=== PATIENT | female | born 1985 | race Caucasian/White ===

== ENCOUNTER 2018-09-16 12:46 | Outpatient (CLI) | payer BC, SELFPAY ==
[2018-09-16 13:57] LABS: PTT Activated 23.6 sec (21.0-31.4)
[2018-09-16 22:11] LABS: Fibrinogen 265 mg/dl (171-384)
[2018-09-17 09:37] LABS: DHEA Sulfate 343 ug/dl (96-512)
[2018-09-20 16:22] LABS: Testosterone, Free 0.22 ng/dL (0.06-1.03); Testosterone, Total 13 ng/dL (8-60)
== END 2018-09-16 13:06 ==
PROVIDERS: PCP Family Medicine; Visit Provider Obstetrics & Gynecology Reproductive Endocrinology
DX: Z31.9 Encounter for procreative management, unspecified (principal); Z82.49 Family history of ischemic heart disease and other diseases of the circulatory system
CPT/HCPCS: 82627; 84402; 84403; 85384; 85610; 85730

== ENCOUNTER 2019-01-03 11:33 | Outpatient (REF) | payer BC, SELFPAY ==
[2019-01-03 13:25] LABS: HCG Quant, Pregnancy 62 mIU/mL (1-3)
== END 2019-01-03 11:53 ==
LOC: LBN 11:33
PROVIDERS: PCP Family Medicine; Visit Provider Obstetrics & Gynecology Reproductive Endocrinology
DX: O09.811 Supervision of pregnancy resulting from assisted reproductive technology, first trimester (principal)
CPT/HCPCS: 84702

== ENCOUNTER 2019-01-09 13:03 | Outpatient (CLI) | payer BC, SELFPAY ==
[2019-01-09 14:27] LABS: HCG Quant, Pregnancy 555 mIU/mL (1-3)
== END 2019-01-09 13:23 ==
PROVIDERS: PCP Family Medicine; Visit Provider Obstetrics & Gynecology Reproductive Endocrinology
DX: O09.811 Supervision of pregnancy resulting from assisted reproductive technology, first trimester (principal)
CPT/HCPCS: 36415; 84702

== ENCOUNTER 2019-04-26 11:02 | Outpatient (CLI) | payer BC, SELFPAY ==
[2019-04-26 17:02] LABS: Progesterone 22.3 ng/ml
== END 2019-04-26 11:22 ==
PROVIDERS: PCP Family Medicine; Visit Provider Obstetrics & Gynecology Reproductive Endocrinology
DX: Z31.83 Encounter for assisted reproductive fertility procedure cycle (principal)
CPT/HCPCS: 36415; 84144

== ENCOUNTER 2019-05-08 11:14 | Outpatient (CLI) | payer BC, SELFPAY ==
[2019-05-08 12:25] LABS: HCG Quant, Pregnancy 3 mIU/mL (1-3)
== END 2019-05-08 11:34 ==
PROVIDERS: PCP Family Medicine; Visit Provider Specialist
DX: Z32.00 Encounter for pregnancy test, result unknown (principal)
CPT/HCPCS: 36415; 84144; 84702

== ENCOUNTER 2019-05-11 09:52 | Outpatient (CLI) | payer BC, SELFPAY ==
[2019-05-11 12:57] LABS: HCG Quant, Pregnancy 1 mIU/mL (1-3)
== END 2019-05-11 10:12 ==
PROVIDERS: PCP Family Medicine; Visit Provider Student in an Organized Health Care Education/Training Program
DX: Z32.02 Encounter for pregnancy test, result negative (principal)
CPT/HCPCS: 36415; 84702

== ENCOUNTER 2020-06-27 02:34 | Outpatient (CLI) | payer BC, SELFPAY ==
[2020-06-27 18:01] LABS: TSH 0.98 uIU/mL (0.36-3.74)
[2020-06-27 18:14] LABS: Vitamin D 25 Total 47.6 ng/ml (30-100)
[2020-06-30 11:08] LABS: HIV-1/2 Ag & Ab Screen Negative (Negative)
[2020-07-13 12:45] LABS: Syphilis Total Ab w/Reflex Nonreactive (Nonreactive)
[2020-07-13 12:47] LABS: Antimullerian Hormone 4.8 ng/mL (0.58-8.1)
[2020-07-14 11:39] LABS: Hepatitis B Surface Ag Negative (Negative); Hepatitis C Ab w Rflx HCV PCR Negative (Negative)
[2020-07-14 11:40] LABS: Hep B Core Antibody Negative (Negative)
== END 2020-06-27 02:54 ==
PROVIDERS: PCP Family Medicine; Visit Provider Obstetrics & Gynecology Reproductive Endocrinology
DX: Z11.3 Encounter for screening for infections with a predominantly sexual mode of transmission (principal); Z31.83 Encounter for assisted reproductive fertility procedure cycle; Z11.4 Encounter for screening for human immunodeficiency virus [HIV]
CPT/HCPCS: 36415; 82306; 86704; 86803; 87340; 87389; 87491; 87591; 83520; 84443; 86592; 86780

== ENCOUNTER 2020-07-01 03:30 | Outpatient (CLI) | payer BC, SELFPAY ==
[2020-07-04 23:25] LABS: Patient Race White; SARS-CoV-2 RNA Undetected (Undetected); SARS-CoV-2 Specimen Source Nasal
== END 2020-07-01 03:50 ==
PROVIDERS: PCP Family Medicine; Visit Provider Family Medicine
DX: Z01.812 Encounter for preprocedural laboratory examination (principal)
CPT/HCPCS: U0003

== ENCOUNTER 2020-07-11 04:11 | Outpatient (CLI) | payer BC, SELFPAY ==
[2020-07-11 16:48] LABS: Estradiol 306 pg/mL (See Note)
== END 2020-07-11 04:31 ==
PROVIDERS: PCP Family Medicine; Visit Provider Obstetrics & Gynecology Reproductive Endocrinology
DX: Z31.83 Encounter for assisted reproductive fertility procedure cycle (principal)
CPT/HCPCS: 36415; 82670

== ENCOUNTER 2020-12-21 03:20 | Outpatient (CLI) | payer BC, SELFPAY ==
[2020-12-21 08:50] LABS: HCG Quant, Pregnancy 3 mIU/mL (1-3)
== END 2020-12-21 03:21 | disposition home or self-care (01) ==
PROVIDERS: Obstetrics & Gynecology Reproductive Endocrinology; PCP Family Medicine; Visit Provider Obstetrics & Gynecology
DX: O03.9 Complete or unspecified spontaneous abortion without complication (principal)
CPT/HCPCS: 36415; 82670; 84144; 84702

== ENCOUNTER 2021-06-16 14:58 | Outpatient (CLI) | payer BC, SELFPAY ==
[2021-06-18 17:44] LABS: Estradiol 236 pg/mL (See Note)
== END 2021-06-16 14:59 | disposition home or self-care (01) ==
LOC: LBO 15:00
PROVIDERS: PCP Family Medicine; Visit Provider Obstetrics & Gynecology Reproductive Endocrinology
DX: Z31.83 Encounter for assisted reproductive fertility procedure cycle (principal)
CPT/HCPCS: 36415; 82306; 86146; 86147; 87116; 82670; 83036; 84146; 84443; 88230; 88262

== ENCOUNTER 2021-09-04 03:45 | Outpatient (CLI) | payer BC, SELFPAY ==
[2021-09-04 12:17] LABS: Abs Immature Grans 0.04 10^3/uL (0.0-0.06); Absolute Basophil Count 0.06 10^3/uL (0.0-0.2); Absolute Eosinophil Count 0.06 10^3/uL (0.0-0.7); Absolute Neutrophil Count 9.07 10^3/uL (1.2-6.7); Basophils % 0.5; Eosinophils % 0.5; HCT 36.8 % (36.0-46.0); HGB 12.5 g/dL (11.2-15.7); Immature Grans % 0.3; Lymphocytes % 15.6; MCH 29.9 pg (27.0-33.0); Monocytes % 5.6; Neutrophils % 77.5; Nucleated RBC 0 %; Platelet Count 258 10^3/uL (130-400); RBC 4.18 10^6/uL (3.93-5.22); RDW 12.5 % (11.7-14.6); RDW-SD 39.8 fL
[2021-09-04 12:18] LABS: Absolute Lymphocyte Count 1.83 10^3/uL (1.2-3.4); Absolute Monocyte Count 0.66 10^3/uL (0.1-0.8)
[2021-09-04 13:47] LABS: TSH (W/Ref FT4) 0.73 uIU/mL (0.36-3.74)
[2021-09-05 09:14] LABS: Hepatitis B Surface Ag Negative (Negative)
[2021-09-05 09:52] LABS: Hepatitis C Ab w Rflx HCV PCR Negative (Negative)
[2021-09-05 10:13] LABS: HIV-1/2 Ag & Ab Screen Negative (Negative)
[2021-09-05 11:03] LABS: Varicella IgG Antibody Positive (See Note)
[2021-09-05 11:10] LABS: Rubella IgG Ab (UVM) Positive (See Note)
[2021-09-05 12:46] LABS: Syphilis Total Ab w/Reflex Nonreactive (Nonreactive)
== END 2021-09-04 03:46 | disposition home or self-care (01) ==
LOC: LBO 03:45
PROVIDERS: PCP Family Medicine; Visit Provider Obstetrics & Gynecology
DX: Z34.91 Encounter for supervision of normal pregnancy, unspecified, first trimester (principal)
CPT/HCPCS: 36415; 86787; 86803; 86850; 86900; 86901; 87340; 87389; 84443; 85025; 86762; 86780

== ENCOUNTER 2021-10-10 21:46 | Emergency (ER) | payer BC, SELFPAY ==
[2021-10-10] VITALS (33 sets, daily range): BP systolic 104–132; BP diastolic 73–91; PULSE 78–98; RESP 15–30; TEMP 37.3; O2SAT 85–100
--- NOTE | 2021-10-10 21:45 | RT.EKG_ITS ---
APPROVED REPORT Exam: Resting ECG Reason for Exam: chest pain Patient Location: E HR:85 bpm ECG Measurements Heart Rate 85 AXIS LA 130 P 57 QRSd 96 QRS 17 QT 395 T 39 QTc 467 Conclusion Sinus rhythm...normal P axis, V-rate 60- 99 Atrial premature complex...SV complex w/ short R-R interval Physician: Rate 85, intervals normal, no STEMI, no significant ST elevation or depression. No Q wave s. No signs of significant right heart strain.
--- NOTE | 2021-10-10 22:11 | W.ED.GENAD ---
Discharge Plan Disposition Patient Disposition: HOME Condition: Good Discharge Details Clinical Impression: Acute pain of left shoulder Primary Care Provider: Kiko Razo ED Provider: Tk Monroe Home Meds and New Rx's Prescriptions: New lidocaine [Lidoderm] 1 PATCH patch 1 patch Topical Q24H Qty: 10 0RF Continued PNV no.162-iron glu-folic acid 12-1 mg tablet 1 tab PO DAILY 0RF Discharge Instructions Instructions: Shoulder Bursitis (ED) Additional Instructions: At this time I am concerned that you have bursal irritation in your left shoulder which is causing your current pain. While there may be a mild rotator cuff injury or mild arthritis this is not clearly evident based on exam. Currently there is no clinical evidence of heart attack, dissection or AAA. Your work-up is otherwise reassuring. As we discussed together please continue to take Tylenol as needed. Maximum dose is 1000 mg every 6 hours. Additionally please use Lidoderm patches as directed. They can be left on for 12 hours, then taken off for 12 hours. The new patch can be applied after this. If you notice any worsening of your symptoms, or any new symptoms such as vomiting, diarrhea, fever, chills, shortness of breath, chest pain, numbness, weakness, or fainting , please return immediately to the emergency department for reevaluation. Please follow up with your primary care provider as soon as possible for reassessment and reevaluation. As always, it was a pleasure participating in your medical care today. Referrals: Kiko Razo DO [Primary Care Provider] - Medical Decision Making This is a 36-year-old female with no significant past medical history who is currently 19 weeks , who presents today for evaluation of left shoulder pain. Patient denies any recent trauma, she denies any history of injury to the left shoulder. She states that earlier today there was some mild achiness in her left shoulder, and then about 2 to 3 hours ago she had a sudden stabbing pinching pain in her left shoulder. It comes in waves of severity. It is just medial to the left shoulder itself. It is not made significantly worse at all with movement of the left shoulder. During the peaks of pain it radiates down the left arm. Patient also states that occasionally when he gets severe it goes to the left groin. She denies urinary complaints otherwise. She denies any chest pain, shortness of breath, tearing or ripping sensation in the chest. She denies any personal history of dissection or aneurysm. She denies any abdominal pain in general. She denies ever having any symptoms before. She did take 1 g of Tylenol about 30 minutes prior to arrival. She denies any current complications with her . She denies any numbness in her left arm or hand, but does admit to brief tingling when the pain gets severe. No headache or neck pain. No other complaints at this time. No other modifying factors. No pleuritic chest pain. No worsening of her pain with deep breathing. No recent long trips, surgeries or procedures. 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 Physical exam demonstrates good pulses in the upper extremities. No reproducible arm or chest pain. Mild reproducible tenderness just medial to the humeral head left shoulder, so is just inferior to lateral left clavicle. Pain is not made significantly worse with movement or internal or external rotation of the shoulder. Neurovascular exam is intact. Pulses equal bilaterally. Bedside limited ultrasound demonstrates good flow for the subclavian vein and artery. No clear dissection flap that I can appreciate on bedside limited ultrasound. She demonstrates good lung sliding bilaterally, no B-lines or evidence of pneumothorax. Bedside limited cardiac echo demonstrate no enlargement of the right ventricle, good cardiac contractility, no evidence of pericardial effusion. Differential is broad. With the lack of history of trauma I would say that fracture is notably unlikely. No clinical evidence of it on exam. There could be mild bursitis for the bursa that could be causing the pain or some arthritis but this appears to be inconsistent with the severity of her pain on exam. Cardiac ACS or cardiac etiology is also on the differential. Screening EKG shows no evidence of STEMI or ischemic abnormality whatsoever. Symptoms appear inconsistent with S.C.A.D. PE is on the differential but less likely, and generalized dissection is also on the differential but less likely. The radiation down her arm into her groin is also slightly concerning except she has no urinary complaints abdominal complaints or chest complaints otherwise. Due to the patients current status both the patient and myself were hesitant to do CTA based on my clinical exam at this time. We will apply Lidoderm patch, get a screening D-dimer, get a UA, labs, troponin, monitor closely and reassess. 11:34 PM Patient has mild to moderate improvement in her left shoulder after a Lidoderm patch and Tylenol. Blood pressure is normalized, heart rate has normalized, respiratory rate stable. Laboratory work-up is unremarkable. Minimal white count of 14, but no fever. No cough or shortness of breath to suggest pneumonia. Likely reactive in nature. Her left shift is unchanged compared to prior labs, and her white count normally runs slightly high on basic routine labs upon review. D-dimer minimally elevated at 577, however in the setting of being 19 weeks , based on review of literature, this is a very normal level, and not indicative of PE or dissection. Electrolytes stable. Renal function good. Urinalysis unremarkable. Troponin normal. This time patient with still like to hold off on any radiographic imaging which through shared decision-making process I feel is appropriate at this time based on clinical exam and work-up. Symptoms appear clinically inconsistent with ACS. I suspect that she may have a mild rotator cuff irritation and likely more specifically bursal inflammation causing the current pain. She does now admit to a notable amount of lifts that were performed today at work, this may have certainly aggravated/exacerbated her pain. Patient will be discharged home. I did discuss potential red flags for which she should immediately return. I have extensively reviewed the treatment plan and discharge instructions with the patient. I have addressed all patient concerns at this time. The patient was made aware of what symptoms to monitor for that would warrant a return to the emergency department. Discussed the plan with the patient, they demonstrate verbal understanding and agreement with our assessment and plan at this time. The documentation in this chart was dictated using [employer] dictation software. Please excuse any dictation errors. EKG 2209 Rate 85, intervals normal, no STEMI, no significant ST elevation or depression. No Q waves. No signs of significant right heart strain. HPI General Date/Time Provider Initiated Documentation: 10/10/21 21:46. HPI Narrative: This is a 36-year-old female with no significant past medical history who is currently 19 weeks , who presents today for evaluation of left shoulder pain. Patient denies any recent trauma, she denies any history of injury to the left shoulder. She states that earlier today there was some mild achiness in her left shoulder, and then about 2 to 3 hours ago she had a sudden stabbing pinching pain in her left shoulder. It comes in waves of severity. It is just medial to the left shoulder itself. It is not made significantly worse at all with movement of the left shoulder. During the peaks of pain it radiates down the left arm. Patient also states that occasionally when he gets severe it goes to the left groin. She denies urinary complaints otherwise. She denies any chest pain, shortness of breath, tearing or ripping sensation in the chest. She denies any personal history of dissection or aneurysm. She denies any abdominal pain in general. She denies ever having any symptoms before. She did take 1 g of Tylenol about 30 minutes prior to arrival. She denies any current complications with her . She denies any numbness in her left arm or hand, but does admit to brief tingling when the pain gets severe. No headache or neck pain. No other complaints at this time. No other modifying factors. No pleuritic chest pain. No worsening of her pain with deep breathing. No recent long trips, surgeries or procedures. 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 Related Data Home Medications Medication Instructions Recorded Confirmed vitamins no.162-iron 1 tab PO DAILY 08/16/21 10/10/21 gluconate 12 mg-folic acid 1 mg tablet lidocaine 5 % topical patch 1 patch TOPICAL Q24H #10 ea 10/10/21 (Lidoderm) Previous Rx's Medication Instructions Recorded lidocaine 5 % topical patch 1 patch TOPICAL Q24H #10 ea 10/10/21 (Lidoderm) Allergies Allergy/AdvReac Type Severity Reaction Status Date / Time No Known Allergies Allergy Verified 10/10/21 23:27 General Stated Complaint: Orthopedic EMELYN: 3 Review of Systems All systems reviewed & are unremarkable except as noted in HPI and below PFSH All Active Problems (Updated 10/10/21 @ 23:30 by Tk Monroe DO) Acute pain of left shoulder (Acute) Advanced maternal age (AMA) in (Acute) conceived through in vitro fertilization (Acute) Medical History History of spontaneous Surgical History H/O dilation and curettage Family History Paternal Grandfather Prostate cancer Paternal Grandmother Cancer lung Maternal Grandfather Multiple sclerosis Social History Smoking/Tobacco Use Status: Never Smoking risk assessment performed?: Yes Counseling given: Yes Details: prior to 1 glass of wine a couple times per week Drug use: Never Adopted: No Caregiver/Support person: Yes (Erick Espinoza) Foster care: No Household members: spouse and other Details: 2 dogs History History 3 Para 0 Hx # Term Pregnancies 0 Multiple births 0 Hx # Pregnancies 0 Ectopic pregnancies 0 AB induced 0 Hx Number of Living Children 0 AB spontaneous 2 Exam Narrative Exam Narrative: 1.Const: Well-nourished, Well-developed, appearing stated age 2.Eyes: PERRL, no conjunctival injection, and symmetrical lids. 3.ENT: Atraumatic external nose and ears. Moist MM. Neck: Symmetric, trachea midline, No thyromegaly. 4.CVS: +S1/S2, No murmurs or gallops. Peripheral pulses 2+ and equal in all extremities. Brisk capillary refill in all extremities. Radial pulses +2 bilaterally. No diminished pulses. 5.RESP: Unlabored respiratory effort. Clear to auscultation bilaterally. No wheezes rales or rhonchi 6.GI: Soft, Nontender/Nondistended, No hepatosplenomegaly. No guarding or rebound. 7.MSK: Normocephalic/Atraumatic, Extremities w/o deformity or ttp No cyanosis or clubbing, Normal movement of all extremities Patient demonstrates localized tenderness just medial to the humeral head on the left, he had just inferior to the lateral clavicle. Pain does not seem to be worsened with external or internal rotation of the shoulder, or abduction or adduction. However there is some mild referred pain with use of the biceps muscle on the left. Good grant manager strength though. Good capillary refill. 8.Skin: Warm, Dry. No rashes or lesions. 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 Sensation grossly intact, no focal neurologic deficits. 10.Psych: (AAO) x3. Appropriate mood and affect Course Vital Signs Vital signs: Respiratory Effort Non-Labored 10/10/21 21:58 Pain Level 10 10/10/21 21:58
[2021-10-10] MEDS: Lidocaine 5% Patch 1 PATCH TP ×2 (22:20→23:42)
[2021-10-10] MEDS: Normal Saline 500 ML IV (22:32)
[2021-10-10 22:37] LABS: Abs Immature Grans 0.13 10^3/uL (0.0-0.06); Absolute Lymphocyte Count 2.07 10^3/uL (1.2-3.4); Absolute Monocyte Count 1.23 10^3/uL (0.1-0.8); Absolute Neutrophil Count 10.97 10^3/uL (1.2-6.7); Basophils % 0.7; Eosinophils % 1.2; HCT 34.2 % (36.0-46.0); HGB 11.6 g/dL (11.2-15.7); Immature Grans % 0.9; Lymphocytes % 14.1; MCH 30.6 pg (27.0-33.0); MCHC 33.9 % (32.0-36.0); MCV 90.2 fL (80-95); MPV 9.8 fL (8.0-11.0); Monocytes % 8.4; Neutrophils % 74.7; Nucleated RBC 0 %; Platelet Count 239 10^3/uL (130-400); RBC 3.79 10^6/uL (3.93-5.22); RDW 13.3 % (11.7-14.6); WBC 14.68 10^3/uL (4.4-10.8)
[2021-10-10 22:39] LABS: Absolute Eosinophil Count 0.18 10^3/uL (0.0-0.7)
[2021-10-10 22:57] LABS: Bilirubin Negative (Negative); Blood Negative (Negative); Clarity Sl Cloudy (Clear); Glucose Negative (Negative); Ketones Negative (Negative); Leukocyte Esterase Negative (Negative); Nitrite Negative (Negative); Specific Gravity >= 1.030 (1.005-1.025); Urobilinogen 0.2 EU/dL (Up TO 0.2)
[2021-10-10 23:02] LABS: ALT 33 U/L (14-59); AST 23 U/L (15-37); Alkaline Phosphatase 51 U/L (46-116); Anion Gap 9.3 mmol/L (3-11); BUN 9 mg/dL (7-18); Bilirubin, Total 0.2 mg/dL (0.2-1.0); CO2 23.7 mmol/L (21.0-32.0); CREATININE 0.6 mg/dL (0.55-1.02); Calcium 8.5 mg/dL (8.5-10.1); Chloride 102 mmol/L (98-107); Glucose 111 mg/dL (74-106); Potassium 3.6 mmol/L (3.5-5.1); Sodium 135 mmol/L (136-145); Total Protein 6.9 g/dL (6.4-8.2); Troponin I < 50 ng/L (<or=60)
[2021-10-10 23:16] LABS: D-Dimer 577 ng/mlFEU (<500)
== END 2021-10-10 23:44 | disposition home or self-care (01) ==
PROVIDERS: Emergency Provider Student in an Organized Health Care Education/Training Program; PCP Family Medicine
DX: O26.892 Other specified pregnancy related conditions, second trimester (principal); M25.512 Pain in left shoulder; R07.9 Chest pain, unspecified; Z3A.19 19 weeks gestation of pregnancy
CPT/HCPCS: 80053; 93005; 96360; 99284; 81003; 84484; 85025; 85379; 93010; 99283

== ENCOUNTER 2021-12-25 03:30 | Outpatient (CLI) | payer BC, SELFPAY ==
[2021-12-25 15:08] LABS: HCT 30.2 % (36.0-46.0); HGB 10.2 g/dL (11.2-15.7); MCH 31.3 pg (27.0-33.0); MCHC 33.8 % (32.0-36.0); MCV 93 fL (80-95); Platelet Count 222 10^3/uL (130-400); RBC 3.26 10^6/uL (3.93-5.22); RDW 12.8 % (11.7-14.6); RDW-SD 42.5 fL
[2021-12-25 15:28] LABS: Glucose,1 Hr (Glucola) 120 mg/dL (80-140)
== END 2021-12-25 03:31 | disposition home or self-care (01) ==
LOC: LBO 03:30
PROVIDERS: PCP Family Medicine; Visit Provider Obstetrics & Gynecology Gynecology
DX: O09.813 Supervision of pregnancy resulting from assisted reproductive technology, third trimester (principal); Z3A.28 28 weeks gestation of pregnancy
CPT/HCPCS: 36415; 82950; 85027

== ENCOUNTER → 2022-01-15 02:17 | Outpatient (CLI) | payer BC, SELFPAY ==
--- NOTE | 2022-01-15 06:30 | DI.US_ITS ---
Exam(s) US OB PABLO WEIGHT EXAM: US OB PABLO WEIGHT CLINICAL HISTORY: covid illness at 23w EGA,check growth,U07.1. TECHNIQUE: Transabdominal obstetrical ultrasound performed. COMPARISON: No exams were available for comparison FINDINGS:: Number of fetuses: One. position: Vertex. Placental location: Posterior. No evidence of previa. BIOMETRIC DATA: BPD: 83 mm = 30 3+3 weeks HC: 302 mm = 33+3 weeks AC: 282mm = 32+2 weeks FL: 63 mm = 32+3 weeks EFW: 199 Gms = 75% Composite Age: 32+ 6 weeks EDC: 06 March 2022 Heart Rate: 144BPM Amniotic fluid index: 15.7 cm. Amount of fluid is within normal limits. IMPRESSION: size and weight are within the expected range. DATA REPOSITORY:
== END ==
PROVIDERS: PCP Family Medicine; Visit Provider Obstetrics & Gynecology Gynecology
DX: O98.512 Other viral diseases complicating pregnancy, second trimester (principal); U07.1 COVID-19; Z3A.23 23 weeks gestation of pregnancy
CPT/HCPCS: 76816

== ENCOUNTER 2022-02-13 16:58 | Outpatient (REF) | payer BC, SELFPAY ==
[2022-02-13 17:04] LABS: *AMPHETAMINES SCREEN URINE Negative (Negative); *BARBITURATES SCREEN URINE Negative (Negative); *BENZODIAZEPINES SCREEN URINE Negative (Negative); Cannabinoids THC Negative (Negative); Cocaine Screen,Urine Negative (Negative); METHADONE URINE SCREEN Negative (Negative); OPIATES URINE SCREEN Negative (Negative)
[2022-02-13 17:16] LABS: Tricyclic Antidepressants Negative (Negative)
[2022-02-21 10:55] LABS: Buprenorphine Negative ng/mL (Cutoff: 5.0)
== END 2022-02-13 16:59 | disposition home or self-care (01) ==
LOC: LBN 16:58
PROVIDERS: PCP Family Medicine; Visit Provider Obstetrics & Gynecology Gynecology
DX: Z34.83 Encounter for supervision of other normal pregnancy, third trimester (principal); Z36.85 Encounter for antenatal screening for Streptococcus B; Z3A.35 35 weeks gestation of pregnancy
CPT/HCPCS: 80307; 87081

== ENCOUNTER 2022-02-21 19:09 | Outpatient (CLI) | payer BC, SELFPAY ==
[2022-02-21 19:29] VITALS: BP 139/95; PULSE 81; TEMP 36.5
[2022-02-21 19:45] VITALS: BP 139/95; PULSE 81
[2022-02-21 20:00] VITALS: BP 142/94; PULSE 83
--- NOTE | 2022-02-21 20:28 | W.OBNST ---
Date of service: 02/21/22 Time of Service: 19:29 NST Evaluation Reason for NST Reasons for Nonstress Test: OTHER, SEE COMMENT Reason for NST Other: well-being. Gestational Age Gestational Age in Weeks and Days: 36 Weeks and 5Days Test and Monitor Explained Test/Monitor Explained: Test Explained, Monitor Explained and Patient Verbalized Understanding Vital Signs Blood Pressure: 139/95 Pulse: 81 Temperature: 97.7 F NST Information Date on Monitor: 02/21/22 Time on Monitor: 19:24 Date off Monitor: 02/21/22 Time off Monitor: 19:59 Total Time on Monitor: 35 NST Interventions: PO Hydration NST Evaluation Patient States Movement: Present FHR Baseline: 135 Variability: Moderate 6-25 bpm Accelerations: 15x15 Decelerations: None NST Results: Reactive Note NST Note Note: Pt c/o leaking discharge that soaked her pants while in the grocery store at 13:00. Then she had several more gushes during the afternoon and one that was pink-tinged so she called and came in. Occ ctx but nothing out of the ordinary. Good FM. Cx:/-2/post/med, gush of clear fluid with exam. Suspect ROM. Pt desires to go home and gather her things as she was not prepared to stay. She is very anxious as she does not feel prepared for the baby to come this early. Her BPs were mildly elevated, though normal in the office today - will plan to draw CMP with her admission labs and monitor BPs. Plans to return by 10pm. NST Reviewed and Verified by: Rosalba Denny
[2022-02-21 20:31] VITALS: BP 139/95; PULSE 81; TEMP 36.5
== END 2022-02-21 20:22 | disposition home or self-care (01) ==
LOC: BCD 19:20 → OBS 19:31
PROVIDERS: PCP Family Medicine; Visit Provider Obstetrics & Gynecology
DX: O26.893 Other specified pregnancy related conditions, third trimester (principal); Z3A.36 36 weeks gestation of pregnancy
CPT/HCPCS: 59025

== ENCOUNTER 2022-02-21 21:56 | Inpatient (IN) | payer BC, SELFPAY ==
--- NOTE | 2022-02-21 22:44 | HPE_ITS ---
Date of service: 02/21/22 Time of Service: 22:44 Assessment and Plan Assessment and plan (1) premature rupture of membranes: Status: Acute Assessment and plan: Admission, labs Montior BPs and check CMP Discussed various options to stimulate labor and we decided to go ahead and start pitocin with a balloon catheter in place. OB-HPI Labor/Delivery History of Present Illness Reason for Visit: pre-term labor Chief Complaint: Suspected Rupture of Membranes , Associated Signs and Symptoms of Suspected ROM: gross rupture. [facility] Calculator Estimated Delivery Date Method Current WG Current Estimate 03/16/22 Ultrasound #1 36w 5d History of Present Expected Delivery Route/Plan MD care IVF is Erick Espinoza. 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 IVF transfer 06/28/21, [facility] established 03/16/22 - Normal morphology US at [facility]. 2. Declines panorama testing, CF and SMA 3. Patient is NOT COVID vaccinated Narrative: ROM@13:00 while at the store. Continued leakage through the afternoon. Grossly ruptured on exam earlier this evening. Ready to start induction of labor. Hopes for unmedicated delivery. Occ ctxs but nothing regular. Review of Systems Constitutional Constitutional: Reports system reviewed and no additional complaints, except as documented Gastrointestinal Gastrointestinal: Denies nausea and Denies vomiting Genitourinary Genitourinary: Reports system reviewed and no additional complaints, except as documented Musculoskeletal Comments: No regular contractions PFSH All Active Problems (Updated 02/21/22 @ 22:56 by Rosalba Denny MD) premature rupture of membranes (Acute) Encounter for supervision of other normal , third trimester (Acute) Encounter for supervision of other normal , second trimester (Acute) COVID-19 affecting in second trimester (Acute) Advanced maternal age (AMA) in (Acute) conceived through in vitro fertilization (Acute) Medical History History of spontaneous Surgical History H/O dilation and curettage Family History Paternal Grandfather Prostate cancer Paternal Grandmother Cancer lung Maternal Grandfather Multiple sclerosis Social History Smoking/Tobacco Use Status: Never Smoking risk assessment performed?: Yes Counseling given: Yes Details: prior to 1 glass of wine a couple times per week Drug use: Never Adopted: No Caregiver/Support person: Yes (Erick Espinoza) Foster care: No Household members: spouse and other Details: 2 dogs History History 3 Para 0 Hx # Term Pregnancies 0 Multiple births 0 Hx # Pregnancies 0 Ectopic pregnancies 0 AB induced 0 Hx Number of Living Children 0 AB spontaneous 2 Meds Allergies and Home Medications Allergies Allergy/AdvReac Type Severity Reaction Status Date / Time No Known Allergies Allergy Verified 02/21/22 11:35 Home Medications Medication Instructions Recorded Confirmed Type vitamins no.162-iron 1 tab PO DAILY 08/16/21 02/21/22 History gluconate 12 mg-folic acid 1 mg tablet ferrous sulfate 27 mg iron tablet 18 mg PO DAILY 01/29/22 02/21/22 History Exam Physical Exam Vital Signs Reviewed: Yes Detailed Labor and Delivery Exam Dilation: 1 Effacement (%): 80 station: -2 Cervix position: mid Consistency: medium Saleh Score: Cervical Points Exam 0 1 2 3 Dilation Closed 1-2cm 3-4 cm 5-6cm Effacement 0-30% 40-50% 60-70% 80% Consistency Firm Medium Soft Station -3 -2 -1,0 +1,+2 Position Posterior Mid Anterior Amniotic Membrane Status: Ruptured Rupture Method: Spontaneous Amniotic Fluid: Clear Comments: Grossly ruptured Fetus A Heart Rate Baseline: 130 Monitor Accelerations: 15 X 15 Monitor Decelerations: None Variability: Moderate (6-25 BPM) Categories: Category I Date of Membrane Rupture: 02/21/22 Time of Membrane Rupture: 12:50 Detailed HEENT Exam Head: Present normocephalic and atraumatic Detailed Abdominal Exam Comments: gravid, nontender Detailed Neurological Exam Neurological: Present alert, oriented X3 and CN II-XII intact DetailedPsychiatric Exam Psychiatric: Present normal affect, normal thought process and cooperative Results Results Group Beta Strep: Negative Blood Type: O+ Rubella Status: Immune Varicella Immunity: Immune Risk Assessment Risk for Shoulder Dystocia Historical/Initial OB: NEGATIVE FOR: Pelvic Abnormality, Pre- BMI>30, Previous Shoulder Dystocia or Previous Macrosomia Date/Initial: 08/16/20; Risk for Pre-Eclampsia Yes, if one or more: NEGATIVE FOR: Hx Pre-E/Gest HTN, Chronic HTN, Multiple Gestation, Pre-gestational DM, Renal Disease, Systemic Lupus or APA Syndrome Yes, if 2 or more: POSITIVE FOR: Nulliparity and Age>= 35 yrs; NEGATIVE FOR: >10yr btwn pregnancies, BMI>30, ethinicty, Mother/Sister w/ Pre-E or Previous IUGR Risk for Post- Hemorrhage Initial: NEGATIVE FOR: Multiple Gestation, Previous PPH, Known Clotting Deficiency, Grand Multiparity or Anticoagulation Risks Reviewed Risks Reviewed Upon Admission: Yes
[2022-02-21 22:45] VITALS: BP 140/87; PULSE 78; RESP 18; TEMP 37.1
[2022-02-21 23:23] LABS: HCT 33.8 % (36.0-46.0); HGB 11.9 g/dL (11.2-15.7); MCH 31.4 pg (27.0-33.0); MCHC 35.2 % (32.0-36.0); MCV 89 fL (80-95); MPV 10.3 fL (8.0-11.0); Platelet Count 178 10^3/uL (130-400); RBC 3.79 10^6/uL (3.93-5.22); RDW 13.1 % (11.7-14.6); RDW-SD 43.1 fL; WBC 12.56 10^3/uL (4.4-10.8)
[2022-02-21 23:46] LABS: ALT 20 U/L (14-59); AST 25 U/L (15-37); Albumin 2.3 g/dL (3.4-5.0); Alkaline Phosphatase 105 U/L (46-116); BUN 7 mg/dL (7-18); Bilirubin, Total 0.3 mg/dL (0.2-1.0); CREATININE 0.7 mg/dL (0.55-1.02); Calcium 8.2 mg/dL (8.5-10.1); Chloride 106 mmol/L (98-107); Glucose 129 mg/dL (74-106); Sodium 142 mmol/L (136-145); Total Protein 5.6 g/dL (6.4-8.2)
[2022-02-21 23:48] LABS: Potassium 2.9 mmol/L (3.5-5.1)
[2022-02-22] VITALS (18 sets, daily range): BP systolic 124–145; BP diastolic 68–92; PULSE 70–103; RESP 17–18; TEMP 36.5–37
[2022-02-22] MEDS: Oxytocin/Normal Saline 30 UNIT/500 ML BAG 2 UNITS IV (00:11)
[2022-02-22] MEDS: Lactated Ringers 1,000 ML 125 ML IV ×2 (00:11→07:57)
[2022-02-22] MEDS: Acetaminophen 325 MG TAB 650 MG PO ×3 (02:15→19:47)
[2022-02-22 03:36] LABS: Source Nasal/Nares
--- NOTE | 2022-02-22 04:17 | W.PM.OBNL1 ---
Date of service: 02/22/22 Time of Service: 04:17 Fetus A Heart Rate Baseline: 120 Variability: Moderate (6-25 BPM) Categories: Category II Accelerations: 15 X 15 Decelerations: Variable (very occasional) Amniotic Membrane Status: Ruptured Rupture Method: Spontaneous Amniotic Fluid: Clear Assessment and Plan Assessment and plan (1) premature rupture of membranes: Status: Acute Assessment and plan: Continue pitocin. Objective Abnormal lab results 02/21/22 02/21/22 Range/Units 23:10 23:10 WBC 12.56 H (4.4-10.8) 10^3/uL RBC 3.79 L (3.93-5.22) 10^6/uL Hct 33.8 L (36.0-46.0) % Potassium 2.9 L (3.5-5.1) mmol/L Anion Gap 14.0 H (3-11) mmol/L Glucose 129 H (74-106) mg/dL Calcium 8.2 L (8.5-10.1) mg/dL Total Protein 5.6 L (6.4-8.2) g/dL Albumin 2.3 L (3.4-5.0) g/dL Temp Pulse Resp BP 97.7 F 71 18 145/92 H 02/22/22 03:50 02/22/22 03:50 02/21/22 22:45 02/22/22 03:50 Laboratory Results WBC 12.56 10^3/uL (4.4-10.8) H 02/21/22 23:10 RBC 3.79 10^6/uL (3.93-5.22) L 02/21/22 23:10 Hgb 11.9 g/dL (11.2-15.7) 02/21/22 23:10 Hct 33.8 % (36.0-46.0) L 02/21/22 23:10 MCV 89 fL (80-95) 02/21/22 23:10 MCH 31.4 pg (27.0-33.0) 02/21/22 23:10 MCHC 35.2 % (32.0-36.0) 02/21/22 23:10 RDW 13.1 % (11.7-14.6) 02/21/22 23:10 Plt Count 178 10^3/uL (130-400) 02/21/22 23:10 MPV 10.3 fL (8.0-11.0) 02/21/22 23:10 Sodium 142 mmol/L (136-145) 02/21/22 23:10 Potassium 2.9 mmol/L (3.5-5.1) L 02/21/22 23:10 Chloride 106 mmol/L (98-107) 02/21/22 23:10 Carbon Dioxide 22.0 mmol/L (21.0-32.0) 02/21/22 23:10 Anion Gap 14.0 mmol/L (3-11) H 02/21/22 23:10 BUN 7 mg/dL (7-18) 02/21/22 23:10 Creatinine 0.7 mg/dL (0.55-1.02) 02/21/22 23:10 Estimated GFR/1.73 m2 >= 60.00 (mL/min/1.73m2) 02/21/22 23:10 Glucose 129 mg/dL (74-106) H 02/21/22 23:10 Calcium 8.2 mg/dL (8.5-10.1) L 02/21/22 23:10 Total Bilirubin 0.3 mg/dL (0.2-1.0) 02/21/22 23:10 AST 25 U/L (15-37) 02/21/22 23:10 ALT 20 U/L (14-59) 02/21/22 23:10 Alkaline Phosphatase 105 U/L (46-116) 02/21/22 23:10 Total Protein 5.6 g/dL (6.4-8.2) L 02/21/22 23:10 Albumin 2.3 g/dL (3.4-5.0) L 02/21/22 23:10 COVID-19 Source Nasal/Nares 02/22/22 00:00 Patient ABO/Rh O Positive 02/21/22 23:10 Antibody Screen NEGATIVE 02/21/22 23:10 Subjective Interval history since last seen: Pitocin @4U. Pt uncomfortable with ctxs - every 2-3min. Cooks catheter in place since 11:30pm. Results Hemoglobin/Hematocrit: Hgb 11.9 g/dL (11.2-15.7) 02/21/22 23:10 Hct 33.8 % (36.0-46.0) L 02/21/22 23:10 Abnormal Lab Findings: Abnormal Labs 02/21/22 02/21/22 23:10 23:10 WBC 12.56 H RBC 3.79 L Hct 33.8 L Potassium 2.9 L Anion Gap 14.0 H Glucose 129 H Calcium 8.2 L Total Protein 5.6 L Albumin 2.3 L
[2022-02-22 04:30] LABS: COVID-19 PCR Negative (Negative)
[2022-02-22] MEDS: Ondansetron 4 MG/2 ML VIAL IVP (04:51)
--- NOTE | 2022-02-22 08:04 | W.PM.OBNL1 ---
Date of service: 02/22/22 Time of Service: 07:00 Pelvic Exam Dilation: 5 Effacement (%): 90 station: 0 Cervix Position: mid Consistency: soft Contractions Contraction Frequency(min): q2-3min Fetus A Heart Rate Baseline: 120 Variability: Moderate (6-25 BPM) Categories: Category I Accelerations: 15 X 15 Decelerations: None Amniotic Membrane Status: Ruptured Rupture Method: Spontaneous Amniotic Fluid: Clear Assessment and Plan Assessment and plan (1) premature rupture of membranes: Status: Acute Assessment and plan: Per pt request pitocin decreased to 2mU. Objective Abnormal lab results 02/21/22 02/21/22 Range/Units 23:10 23:10 WBC 12.56 H (4.4-10.8) 10^3/uL RBC 3.79 L (3.93-5.22) 10^6/uL Hct 33.8 L (36.0-46.0) % Potassium 2.9 L (3.5-5.1) mmol/L Anion Gap 14.0 H (3-11) mmol/L Glucose 129 H (74-106) mg/dL Calcium 8.2 L (8.5-10.1) mg/dL Total Protein 5.6 L (6.4-8.2) g/dL Albumin 2.3 L (3.4-5.0) g/dL Temp Pulse Resp BP 97.7 F 73 18 142/87 H 02/22/22 06:41 02/22/22 05:48 02/21/22 22:45 02/22/22 05:48 Laboratory Results WBC 12.56 10^3/uL (4.4-10.8) H 02/21/22 23:10 RBC 3.79 10^6/uL (3.93-5.22) L 02/21/22 23:10 Hgb 11.9 g/dL (11.2-15.7) 02/21/22 23:10 Hct 33.8 % (36.0-46.0) L 02/21/22 23:10 MCV 89 fL (80-95) 02/21/22 23:10 MCH 31.4 pg (27.0-33.0) 02/21/22 23:10 MCHC 35.2 % (32.0-36.0) 02/21/22 23:10 RDW 13.1 % (11.7-14.6) 02/21/22 23:10 Plt Count 178 10^3/uL (130-400) 02/21/22 23:10 MPV 10.3 fL (8.0-11.0) 02/21/22 23:10 Sodium 142 mmol/L (136-145) 02/21/22 23:10 Potassium 2.9 mmol/L (3.5-5.1) L 02/21/22 23:10 Chloride 106 mmol/L (98-107) 02/21/22 23:10 Carbon Dioxide 22.0 mmol/L (21.0-32.0) 02/21/22 23:10 Anion Gap 14.0 mmol/L (3-11) H 02/21/22 23:10 BUN 7 mg/dL (7-18) 02/21/22 23:10 Creatinine 0.7 mg/dL (0.55-1.02) 02/21/22 23:10 Estimated GFR/1.73 m2 >= 60.00 (mL/min/1.73m2) 02/21/22 23:10 Glucose 129 mg/dL (74-106) H 02/21/22 23:10 Calcium 8.2 mg/dL (8.5-10.1) L 02/21/22 23:10 Total Bilirubin 0.3 mg/dL (0.2-1.0) 02/21/22 23:10 AST 25 U/L (15-37) 02/21/22 23:10 ALT 20 U/L (14-59) 02/21/22 23:10 Alkaline Phosphatase 105 U/L (46-116) 02/21/22 23:10 Total Protein 5.6 g/dL (6.4-8.2) L 02/21/22 23:10 Albumin 2.3 g/dL (3.4-5.0) L 02/21/22 23:10 COVID-19 Source Nasal/Nares 02/22/22 00:00 SARS-CoV-2 (PCR) Negative (Negative) 02/22/22 00:00 Patient ABO/Rh O Positive 02/21/22 23:10 Antibody Screen NEGATIVE 02/21/22 23:10 Subjective Interval history since last seen: Pt feeling regular uncomfortable ctxs. Results Hemoglobin/Hematocrit: Hgb 11.9 g/dL (11.2-15.7) 02/21/22 23:10 Hct 33.8 % (36.0-46.0) L 02/21/22 23:10 Abnormal Lab Findings: Abnormal Labs 02/21/22 02/21/22 23:10 23:10 WBC 12.56 H RBC 3.79 L Hct 33.8 L Potassium 2.9 L Anion Gap 14.0 H Glucose 129 H Calcium 8.2 L Total Protein 5.6 L Albumin 2.3 L
--- NOTE | 2022-02-22 08:10 | W.PM.OBNL1 ---
Date of service: 02/22/22 Time of Service: 08:10 Contractions Monitor Mode: External Contraction Frequency(min): 5 Contraction Duration(sec): 60 Intensity: Moderate Fetus A Monitor: External (US) Heart Rate Baseline: 130 Presentation: Vertex Variability: Moderate (6-25 BPM) Categories: Category I Accelerations: 15 X 15 Decelerations: None Assessment and Plan Assessment and plan (1) premature rupture of membranes: Status: Acute Assessment and plan: Premature rupture of membrane. Pitocin augmentation. Pain control as needed. Anticipate vaginal delivery. (2) Advanced maternal age (AMA) in : Status: Acute (3) conceived through in vitro fertilization: Status: Acute Objective Abnormal lab results 02/21/22 02/21/22 Range/Units 23:10 23:10 WBC 12.56 H (4.4-10.8) 10^3/uL RBC 3.79 L (3.93-5.22) 10^6/uL Hct 33.8 L (36.0-46.0) % Potassium 2.9 L (3.5-5.1) mmol/L Anion Gap 14.0 H (3-11) mmol/L Glucose 129 H (74-106) mg/dL Calcium 8.2 L (8.5-10.1) mg/dL Total Protein 5.6 L (6.4-8.2) g/dL Albumin 2.3 L (3.4-5.0) g/dL Temp Pulse Resp BP 97.7 F 73 18 142/87 H 02/22/22 06:41 02/22/22 05:48 02/21/22 22:45 02/22/22 05:48 Laboratory Results WBC 12.56 10^3/uL (4.4-10.8) H 02/21/22 23:10 RBC 3.79 10^6/uL (3.93-5.22) L 02/21/22 23:10 Hgb 11.9 g/dL (11.2-15.7) 02/21/22 23:10 Hct 33.8 % (36.0-46.0) L 02/21/22 23:10 MCV 89 fL (80-95) 02/21/22 23:10 MCH 31.4 pg (27.0-33.0) 02/21/22 23:10 MCHC 35.2 % (32.0-36.0) 02/21/22 23:10 RDW 13.1 % (11.7-14.6) 02/21/22 23:10 Plt Count 178 10^3/uL (130-400) 02/21/22 23:10 MPV 10.3 fL (8.0-11.0) 02/21/22 23:10 Sodium 142 mmol/L (136-145) 02/21/22 23:10 Potassium 2.9 mmol/L (3.5-5.1) L 02/21/22 23:10 Chloride 106 mmol/L (98-107) 02/21/22 23:10 Carbon Dioxide 22.0 mmol/L (21.0-32.0) 02/21/22 23:10 Anion Gap 14.0 mmol/L (3-11) H 02/21/22 23:10 BUN 7 mg/dL (7-18) 02/21/22 23:10 Creatinine 0.7 mg/dL (0.55-1.02) 02/21/22 23:10 Estimated GFR/1.73 m2 >= 60.00 (mL/min/1.73m2) 02/21/22 23:10 Glucose 129 mg/dL (74-106) H 02/21/22 23:10 Calcium 8.2 mg/dL (8.5-10.1) L 02/21/22 23:10 Total Bilirubin 0.3 mg/dL (0.2-1.0) 02/21/22 23:10 AST 25 U/L (15-37) 02/21/22 23:10 ALT 20 U/L (14-59) 02/21/22 23:10 Alkaline Phosphatase 105 U/L (46-116) 02/21/22 23:10 Total Protein 5.6 g/dL (6.4-8.2) L 02/21/22 23:10 Albumin 2.3 g/dL (3.4-5.0) L 02/21/22 23:10 COVID-19 Source Nasal/Nares 02/22/22 00:00 SARS-CoV-2 (PCR) Negative (Negative) 02/22/22 00:00 Patient ABO/Rh O Positive 02/21/22 23:10 Antibody Screen NEGATIVE 02/21/22 23:10 Subjective Interval history since last seen: Patient seen and examined this morning. Very uncomfortable with contractions. Pitocin at 2 milliunits. Category 1 strip. Discussed options for pain control. Currently using nitrous. We will continue to monitor for progress. Recheck service as needed. Last cervical exam was approximately 02/08/2021 patient was found to be [address] Padron Results Hemoglobin/Hematocrit: Hgb 11.9 g/dL (11.2-15.7) 02/21/22 23:10 Hct 33.8 % (36.0-46.0) L 02/21/22 23:10 Abnormal Lab Findings: Abnormal Labs 02/21/22 02/21/22 23:10 23:10 WBC 12.56 H RBC 3.79 L Hct 33.8 L Potassium 2.9 L Anion Gap 14.0 H Glucose 129 H Calcium 8.2 L Total Protein 5.6 L Albumin 2.3 L
--- NOTE | 2022-02-22 08:55 | W.PM.OBNL1 ---
Date of service: 02/22/22 Time of Service: 08:55 Pelvic Exam Dilation: 7 Effacement (%): 80 station: 0 Position: OA Consistency: soft Contractions Contraction Frequency(min): 3 Contraction Duration(sec): 60 Intensity: Moderate/Strong Fetus A Heart Rate Baseline: 140 Categories: Category I Objective Abnormal lab results 02/21/22 02/21/22 Range/Units 23:10 23:10 WBC 12.56 H (4.4-10.8) 10^3/uL RBC 3.79 L (3.93-5.22) 10^6/uL Hct 33.8 L (36.0-46.0) % Potassium 2.9 L (3.5-5.1) mmol/L Anion Gap 14.0 H (3-11) mmol/L Glucose 129 H (74-106) mg/dL Calcium 8.2 L (8.5-10.1) mg/dL Total Protein 5.6 L (6.4-8.2) g/dL Albumin 2.3 L (3.4-5.0) g/dL Temp Pulse Resp BP 97.7 F 73 18 142/87 H 02/22/22 06:41 02/22/22 05:48 02/21/22 22:45 02/22/22 05:48 Laboratory Results WBC 12.56 10^3/uL (4.4-10.8) H 02/21/22 23:10 RBC 3.79 10^6/uL (3.93-5.22) L 02/21/22 23:10 Hgb 11.9 g/dL (11.2-15.7) 02/21/22 23:10 Hct 33.8 % (36.0-46.0) L 02/21/22 23:10 MCV 89 fL (80-95) 02/21/22 23:10 MCH 31.4 pg (27.0-33.0) 02/21/22 23:10 MCHC 35.2 % (32.0-36.0) 02/21/22 23:10 RDW 13.1 % (11.7-14.6) 02/21/22 23:10 Plt Count 178 10^3/uL (130-400) 02/21/22 23:10 MPV 10.3 fL (8.0-11.0) 02/21/22 23:10 Sodium 142 mmol/L (136-145) 02/21/22 23:10 Potassium 2.9 mmol/L (3.5-5.1) L 02/21/22 23:10 Chloride 106 mmol/L (98-107) 02/21/22 23:10 Carbon Dioxide 22.0 mmol/L (21.0-32.0) 02/21/22 23:10 Anion Gap 14.0 mmol/L (3-11) H 02/21/22 23:10 BUN 7 mg/dL (7-18) 02/21/22 23:10 Creatinine 0.7 mg/dL (0.55-1.02) 02/21/22 23:10 Estimated GFR/1.73 m2 >= 60.00 (mL/min/1.73m2) 02/21/22 23:10 Glucose 129 mg/dL (74-106) H 02/21/22 23:10 Calcium 8.2 mg/dL (8.5-10.1) L 02/21/22 23:10 Total Bilirubin 0.3 mg/dL (0.2-1.0) 02/21/22 23:10 AST 25 U/L (15-37) 02/21/22 23:10 ALT 20 U/L (14-59) 02/21/22 23:10 Alkaline Phosphatase 105 U/L (46-116) 02/21/22 23:10 Total Protein 5.6 g/dL (6.4-8.2) L 02/21/22 23:10 Albumin 2.3 g/dL (3.4-5.0) L 02/21/22 23:10 COVID-19 Source Nasal/Nares 02/22/22 00:00 SARS-CoV-2 (PCR) Negative (Negative) 02/22/22 00:00 Patient ABO/Rh O Positive 02/21/22 23:10 Antibody Screen NEGATIVE 02/21/22 23:10 Subjective Interval history since last seen: Patient seen this. More uncomfortable with contractions every 3 minutes. 1 tracing. Cervical exam requested and patient is a 7 cm soft, 0 station,. Position change, anticipate vaginal delivery Results Hemoglobin/Hematocrit: Hgb 11.9 g/dL (11.2-15.7) 02/21/22 23:10 Hct 33.8 % (36.0-46.0) L 02/21/22 23:10 Abnormal Lab Findings: Abnormal Labs 02/21/22 02/21/22 23:10 23:10 WBC 12.56 H RBC 3.79 L Hct 33.8 L Potassium 2.9 L Anion Gap 14.0 H Glucose 129 H Calcium 8.2 L Total Protein 5.6 L Albumin 2.3 L
[2022-02-22] MEDS: Ibuprofen 600 MG TAB PO ×2 (12:50→19:47)
--- NOTE | 2022-02-22 13:01 | OBVDS_ITS ---
Date of service: 02/22/22 Time of Service: 12:05 OB Labor/ Delivery Information Baby A Delivery Delivery Method: Spontaneaous Presentation: Cephalic Vertex Position: Left Occipital Anterior Amniotic Fluid: Clear Estimated Blood Loss: 300 Delivery Outcome: Liveborn Providers Doctor: Rosalba Denny Nurse: Delmis Pichardo Nurse: Stanford Marroquin Labor/Delivery Information Number of Babies in Womb: 1 Steroids Given: None Reason Steroids Not Administered: N/A Group Beta Strep: Negative Antibiotics Administered: No Rubella Status: Immune Blood Type: O+ Varicella Immunity: Immune Stages of Labor Onset of Labor Date: 02/21/22 Onset of Labor Time: 12:50 Complete Dilatation Date: 02/22/22 Complete Dilatation Time: 11:09 Labor - Stage 1 Duration: 24 hours and 0 minutes ROM Baby A: 02/21/22 ROM Baby A: 12:50 ROM Total Time- Baby A: [id number] Delivery Date-Baby A: 02/22/22 Delivery Time-Baby A: 12:05 Labor Stage 2 Duration: 56 minutes Placenta Delivery Date-Baby A: 02/22/22 Placenta Delivery Time-Baby A: 12:21 Labor-Stage 3 Duration: 16 minutes Total Length of Labor-Baby A: 23 hours and 15 minutes Placenta Status: Delivered Baby A Gender: Female Gestational Status: Late (34-36.6 wks) Gestational Age in Weeks/Days: 36 Weeks and 6 Days Score-1 Minute Interval(Baby A) Heart Rate-1 minute: 100 BPM or Greater Respiratory Effort- 1 minute: Spontaneous/Strong Cry Muscle Tone-1 minute: Active Movement Reflex Response-1 minute: Prompt Response Color-1 minute: Bluish Hands or Feet Total Score-1 minute: 9 Score-5 Minute Interval(Baby A) Heart Rate- 5 minute: 100 BPM or Greater Respiratory Effort-5 minute: Spontaneous/Strong Cry Muscle Tone-5 minute: Active Movement Reflex Response-5 minute: Prompt Response Color-5 minute: Bluish Hands or Feet Total Score- 5 minute: 9 Note: The pt was found to be fully dilated. She pushed 60mins to deliver the 's head in KAYLA position followed by the shoulders and the rest of the body. The baby was placed on mom's abdomen. After >1min the cord was clamped x2 and cut. Cord blood collected. The placenta delivered with gentle cord traction and fund al massage and appeared intact. Fundus was firm with good hemostasis. A vaginal laceration at the introitus was repaired with 3-0 vicryl in a running locked fashion. The perineum was intact. Mom and baby stable at time of note.
[2022-02-22] MEDS: Hamamelis Leaf/Glycerin 100 EACH BOX PR (13:45)
[2022-02-22] MEDS: Dibucaine 1% 28 GM TUBE TP (13:45)
[2022-02-23] MEDS: Ibuprofen 600 MG TAB PO ×2 (01:41→15:36)
[2022-02-23] MEDS: Acetaminophen 325 MG TAB 650 MG PO ×3 (01:41→15:36)
[2022-02-23 01:51] VITALS: BP 130/93; PULSE 85; RESP 17; TEMP 36.7; O2SAT 99
--- NOTE | 2022-02-23 08:06 | W.PM.OBPNV1 ---
Date of service: 02/23/22 Time of Service: 08:06 Assessment and Plan Assessment and plan (1) Normal spontaneous vaginal delivery: Status: Acute Assessment and plan: day #1 anticipate discharge home. We will continue to monitor blood pressures. (2) premature rupture of membranes: Status: Acute Subjective Subjective Interval history: Patient seen and examined this morning. All questions answered. Desires discharge home possible. Will monitor blood pressure. Patient comments: No complaints baby status: Doing well, Nursing well and Strong Bonding Observed Exam Physical Exam Vital signs: Temp Pulse Resp BP Pulse Ox 98.1 F 85 17 130/93 H 99 02/23/22 01:51 02/23/22 01:51 02/23/22 01:51 02/23/22 01:51 02/23/22 01:51 Vital Signs Reviewed: Yes Notable Details: Mildly elevated diastolic blood pressures discussed with patient Constitutional Constitutional: no acute distress HEENT Exam HEENT Exam: Normal Neck Exam Neck Exam: Normal Respiratory Exam Respiratory Exam: Normal Cardiovascular Exam Cardiovascular Exam: Normal Abdominal Exam Abdomen: Tender (Appropriate) Fundal Exam Fundus: Below Umbilicus and Firm Extremities Exam Extremity Exam: Normal and Edema (2+ bilateral); negative Calf Tenderness Skin Exam Skin Exam: Normal Neurological Exam Neurological Exam: Normal Psychiatric Exam Psychiatric Exam: Normal Results Hemoglobin/Hematocrit: Hgb 11.9 g/dL (11.2-15.7) 02/21/22 23:10 Hct 33.8 % (36.0-46.0) L 02/21/22 23:10 Abnormal Lab Findings: Abnormal Labs 02/21/22 02/21/22 23:10 23:10 WBC 12.56 H RBC 3.79 L Hct 33.8 L Potassium 2.9 L Anion Gap 14.0 H Glucose 129 H Calcium 8.2 L Total Protein 5.6 L Albumin 2.3 L
--- NOTE | 2022-02-23 08:11 | DSE_ITS ---
Date of service: 02/23/22 Time of Service: 08:11 DS: Diagnosis Discharge Diagnosis (1) Normal spontaneous vaginal delivery: Status: Acute (2) premature rupture of membranes: Status: Acute Discharge Plan Disposition Patient Disposition: HOME Condition: Good Discharge Details Reason For Visit: Pre-Term Labor Admit Date/Time: 02/21/22 21:56 Admit Provider: Roaslba Denny Attending Provider: Rosalba Denny Primary Care Provider: Kiko Razo [facility] Course Hospital Course: Patient presented to the hospital with spontaneous rupture of membranes at 36 weeks and 6 days. She had an uncomplicated labor course and went on to regain normal spontaneous vaginal delivery of a viable female . She did have mildly elevated blood pressures which were monitored. Normal laboratory studies. She will be discharged to home and to follow-up in the office in 1 week. Her blood pressure checks at home. Home Meds and New Rx's Prescriptions: New ibuprofen 800 mg tablet 800 mg PO Q8H PRNQty: 30 1RF No Action PNV no.162-iron glu-folic acid 12-1 mg tablet 1 tab PO DAILY ferrous sulfate 27 mg iron tablet 18 mg PO DAILY Label Comments: 01/29/22- Pt reports taking 18 mg Nature Made iron supplement Discharge Instructions Stand Alone Forms: BC Post Vaginal Deliver Activity:: Activity as Tolerated Equipment/Supplies:: No Equipment Needed Diet:: As Tolerated Discharge Orders Discharge Orders: Discharge Order (Routine); Ordered 02/23/22 Ordered By: Sravani Gupta OB:DS Summary Summary Vaginal Delivery Method: Spontaneaous Contraception Discussed Contraception Discussed: Yes Contraceptive Plan: Undecided, [place] Infant Gender-Baby A: Female weight: 5 lb 15.24 oz Status at Discharge Functional status at discharge: independent ambulation Overall status at discharge: patient is progressing back to baseline Mental Status: mental status grossly normal Speech and Movement: speech and movement normal Mood: congruent mood Affect: normal affect Exam Physical Exam Vital signs: Temp Pulse Resp BP Pulse Ox 98.1 F 85 17 130/93 H 99 02/23/22 01:51 02/23/22 01:51 02/23/22 01:51 02/23/22 01:51 02/23/22 01:51 Narrative: See physical exam from progress note dated 02/24/2022 [facility] All Active Problems (Updated 07/15/22 @ 08:08 by Sravani Gupta DO) Normal spontaneous vaginal delivery (Acute) premature rupture of membranes (Acute) Encounter for supervision of other normal , third trimester (Acute) COVID-19 affecting in second trimester (Acute) Advanced maternal age (AMA) in (Acute) conceived through in vitro fertilization (Acute) Medical History (Updated 02/23/22 @ 08:08 by Sravani Gupta DO) Encounter for supervision of other normal , second trimester History of spontaneous Surgical History H/O dilation and curettage Family History Paternal Grandfather Prostate cancer Paternal Grandmother Cancer lung Maternal Grandfather Multiple sclerosis Social History Smoking/Tobacco Use Status: Never Smoking risk assessment performed?: Yes Alcohol Intake: never Counseling given: Yes Details: prior to 1 glass of wine a couple times per week Drug use: Never Adopted: No Caregiver/Support person: Yes (Erick Espinoza) Foster care: No Household members: spouse and other Details: 2 dogs Do you feel safe at home: Yes Do you feel safe in your relationship?: Yes History History 3 Para 0 Hx # Term Pregnancies 0 Multiple births 0 Hx # Pregnancies 0 Ectopic pregnancies 0 AB induced 0 Hx Number of Living Children 0 AB spontaneous 2 DS: Data Vitals/I&O Vitals and I&O: Vital Signs Temperature 98.1 F 02/23/22 01:51 Pulse 85 02/23/22 01:51 Pulse Rhythm Regular 02/22/22 19:40 Respiratory Rate 17 02/23/22 01:51 Blood Pressure 130/93 H 02/23/22 01:51 Blood Pressure Mean 105 02/23/22 01:51 Pulse Oximetry 99 02/23/22 01:51 Pain Level 3 02/22/22 16:12 Comment 02/23/22 01:51 Intake & Output 02/22/22 02/22/22 02/23/22 11:59 23:59 11:59 Intake Total 1393.217 / 1393.217 Output Total 2100 / 2500 400 / 2500 Balance -706.783 / -1106.783 -400 / -1106.783 Intake: IV 1393.217 / 1393.217 Output: Urine 2100 / 2500 400 / 2500 Other: Urine Color Yellow Yellow
[2022-02-23 09:30] VITALS: BP 126/89; PULSE 84; RESP 16; TEMP 36.3; O2SAT 98
[2022-02-23 17:45] VITALS: BP 137/99
[2022-02-23 18:10] VITALS: BP 130/95
[2022-02-23 21:04] VITALS: BP 137/89; PULSE 75; RESP 17; TEMP 36.6; O2SAT 99
[2022-02-23 23:00] VITALS: BP 136/88; PULSE 79; RESP 17; TEMP 36.8; O2SAT 99
[2022-02-24 04:11] VITALS: BP 140/95; PULSE 71; RESP 17; TEMP 36.6; O2SAT 99
[2022-02-24 04:33] VITALS: BP 142/84
[2022-02-24 06:24] LABS: Abs Immature Grans 0.13 10^3/uL (0.0-0.06); Absolute Basophil Count 0.13 10^3/uL (0.0-0.2); Absolute Eosinophil Count 0.26 10^3/uL (0.0-0.7); Absolute Monocyte Count 1.03 10^3/uL (0.1-0.8); Basophils % 0.9; Eosinophils % 1.8; HCT 27.9 % (36.0-46.0); HGB 9.4 g/dL (11.2-15.7); Immature Grans % 0.9; Lymphocytes % 15.5; MCH 30.8 pg (27.0-33.0); MCHC 33.7 % (32.0-36.0); MCV 92 fL (80-95); MPV 10.2 fL (8.0-11.0); Monocytes % 7.2; Neutrophils % 73.7; Platelet Count 184 10^3/uL (130-400); RBC 3.05 10^6/uL (3.93-5.22); RDW 13.3 % (11.7-14.6); RDW-SD 44.3 fL; WBC 14.28 10^3/uL (4.4-10.8)
[2022-02-24 06:33] LABS: Absolute Lymphocyte Count 2.21 10^3/uL (1.2-3.4); Absolute Neutrophil Count 10.52 10^3/uL (1.2-6.7)
[2022-02-24 06:42] VITALS: BP 128/84; PULSE 76
[2022-02-24 06:43] LABS: ALT 23 U/L (14-59); AST 33 U/L (15-37); Alkaline Phosphatase 80 U/L (46-116); Anion Gap 10.2 mmol/L (3-11); BUN 11 mg/dL (7-18); Bilirubin, Total 0.2 mg/dL (0.2-1.0); CO2 23.8 mmol/L (21.0-32.0); CREATININE 0.6 mg/dL (0.55-1.02); Calcium 8.2 mg/dL (8.5-10.1); Chloride 107 mmol/L (98-107); Glucose 77 mg/dL (74-106); Potassium 3.4 mmol/L (3.5-5.1); Sodium 141 mmol/L (136-145)
[2022-02-24] MEDS: Docusate Sodium 100 MG CAP PO (08:25)
[2022-02-24] MEDS: Acetaminophen 325 MG TAB 650 MG PO (08:25)
[2022-02-24] MEDS: Ibuprofen 600 MG TAB PO (08:25)
--- NOTE | 2022-02-24 09:25 | OBPPV_ITS ---
Date of service: 02/24/22 Time of Service: 09:25 Assessment and Plan Assessment and plan (1) Normal spontaneous vaginal delivery: Status: Acute Assessment and plan: Patient is day #2 status postnormal spontaneous vaginal delivery after premature rupture of membranes. She is doing well today. Her blood pressures have been slightly elevated throughout the course of her stay, though not in the range of requiring treatment. Laboratory studies have been normal. She is well versed on blood pressure evaluation and will monitor blood pressures at home. She will be seen in the office within the week for blood pressure check. Signs and symptoms of preeclampsia discussed at length (2) premature rupture of membranes: Status: Acute Subjective Subjective Interval history: Patient is seen this morning. Doing better. She did have a few hours of uninterrupted sleep last night. She has put baby to breast. She is also able to pump a small amount of colostrum. She seems pleased with this. Blood pressure is 128/84 this morning. She has no cephalgia, no abdominal pain. Her lower extremity swelling is better. Patient's Mood: Appropriate baby status: Doing well, Rooming in and Strong Bonding Observed Paradox feeding status: Exclusively breast feeding Narrative: Patient strongly desires discharge home today Exam Physical Exam Vital signs: Temp Pulse Resp BP Pulse Ox 97.9 F 76 17 128/84 99 02/24/22 04:11 02/24/22 06:42 02/24/22 04:11 02/24/22 06:42 02/24/22 04:11 Vital Signs Reviewed: Yes Narrative: Blood pressure is improved today. We will follow closely in the office, and with home blood pressure monitoring. Signs and symptoms preeclampsia discussed Constitutional Constitutional: no acute distress HEENT Exam HEENT Exam: Normal Neck Exam Neck Exam: Normal Respiratory Exam Respiratory Exam: Normal Cardiovascular Exam Cardiovascular Exam: Normal Abdominal Exam Abdomen: Other (Soft and nontender) Fundal Exam Fundus: Below Umbilicus and Firm Detailed Neurological Exam Neurological: Present oriented X3 Psychiatric Exam Psychiatric Exam: Normal Results Hemoglobin/Hematocrit: Hgb 9.4 g/dL (11.2-15.7) L D 02/24/22 05:58 Hct 27.9 % (36.0-46.0) L 02/24/22 05:58 Abnormal Lab Findings: Abnormal Labs 02/21/22 02/21/22 02/24/22 23:10 23:10 05:58 WBC 12.56 H RBC 3.79 L Hgb Hct 33.8 L Absolute Neutrophils Absolute Monocytes Potassium 2.9 L 3.4 L Anion Gap 14.0 H Glucose 129 H Calcium 8.2 L 8.2 L Total Protein 5.6 L 5.0 L Albumin 2.3 L 2.0 L 02/24/22 05:58 WBC 14.28 H RBC 3.05 L Hgb 9.4 L D Hct 27.9 L Absolute Neutrophils 10.52 H Absolute Monocytes 1.03 H Potassium Anion Gap Glucose Calcium Total Protein Albumin
[2022-02-24 09:45] VITALS: BP 135/98; PULSE 75; RESP 17; TEMP 36.8; O2SAT 99
== END 2022-02-24 12:30 | disposition home or self-care (01) | DRG 806 ==
PROVIDERS: Obstetrics & Gynecology; Admitting Provider Obstetrics & Gynecology; PCP Family Medicine; Visit Provider Obstetrics & Gynecology
DX: O42.013 Preterm premature rupture of membranes, onset of labor within 24 hours of rupture, third trimester (principal); O71.4 Obstetric high vaginal laceration alone; Z37.0 Single live birth; Z3A.36 36 weeks gestation of pregnancy
CPT/HCPCS: 59200; 36415; 80053; 85027; 86850; 86900; 86901; 87635; 85025; J2405

== ENCOUNTER 2023-07-25 02:17 | Outpatient (CLI) | payer BC, SELFPAY ==
[2023-07-25 16:20] LABS: HCT 41.9 % (36.0-46.0); HGB 14.1 g/dL (11.2-15.7); MCH 29.9 pg (27.0-33.0); MCHC 33.7 % (32.0-36.0); MCV 89 fL (80-95); MPV 9.4 fL (8.0-11.0); Platelet Count 265 10^3/uL (130-400); RBC 4.71 10^6/uL (3.93-5.22); RDW 12.2 % (11.7-14.6); RDW-SD 40.6 fL; WBC 9.83 10^3/uL (4.4-10.8)
[2023-07-25 16:44] LABS: TSH 1.02 uIU/mL (0.36-3.74)
[2023-07-25 23:39] LABS: Estradiol 14 pg/mL (See Note)
[2023-07-25 23:46] LABS: FSH 10.8 mIU/mL (See Note)
[2023-07-26 09:56] LABS: Hepatitis B Surface Ag Negative (Negative)
[2023-07-26 10:19] LABS: Hep B Core Antibody Negative (Negative)
[2023-07-26 10:21] LABS: Hepatitis C Ab w Rflx HCV PCR Negative (Negative)
[2023-07-26 10:37] LABS: HIV-1/2 Ag & Ab Screen Negative (Negative)
[2023-07-26 11:52] LABS: Syphilis Serology (RPR) Negative (Negative)
[2023-07-26 14:05] LABS: Chlamydia Result Negative (Negative); GC Result Negative (Negative)
== END 2023-07-25 02:18 | disposition home or self-care (01) ==
PROVIDERS: Visit Provider Obstetrics & Gynecology Obstetrics
DX: Z11.3 Encounter for screening for infections with a predominantly sexual mode of transmission (principal); Z31.41 Encounter for fertility testing
CPT/HCPCS: 36415; 85027; 86704; 86803; 87340; 87389; 87491; 87591; 82670; 83001; 83002; 83520; 84443; 86592

== ENCOUNTER 2023-10-24 07:51 | Emergency (ER) | payer BC, SELFPAY ==
--- NOTE | 2023-10-24 | DI.RAD_ITS ---
Exam(s) XR KNEE RT 3V AP,LAT,RICKIE EXAM: XR KNEE RT 3V AP,LAT,RICKIE CLINICAL HISTORY: pain,trauma, weakness. TECHNIQUE: 2D digital imaging was performed. COMPARISON: No exams were available for comparison FINDINGS: 3 views There is no evidence of fracture nor prominent joint effusion. Bone density normal. No joint space narrowing incidentally noted is a benign-appearing bone lesion in the proximal diaphysis of the tibia measuring 2.2 cm length by 0 point 5 cm wide. Probable fibrous cortical defect IMPRESSION: No acute osseous findings. Incidental note of benign-appearing bone lesion in the proximal right tibia. DATA REPOSITORY: RADIATION DOSE DELIVERED:
== END 2023-10-24 09:48 | disposition home or self-care (01) ==
LOC: ER 09:56
PROVIDERS: Emergency Provider Emergency Medicine; PCP Family Medicine
DX: S80.01XA Contusion of right knee, initial encounter (principal); M25.461 Effusion, right knee; W55.22XA Struck by cow, initial encounter
CPT/HCPCS: 73562; 99283

== ENCOUNTER → 2023-11-13 13:30 | Outpatient (CLI) | payer BC, SELFPAY ==
--- NOTE | 2023-11-13 14:30 | DI.MRI_ITS ---
Exam(s) MR LOWER JOINT RT WO EXAM: MR LOWER JOINT RT WO CLINICAL HISTORY: R KNEE PAIN, F/U RECENT XRAY,tear of mcl, fibroma,d21.9,S83.419a. TECHNIQUE: Multiplanar multisequence MRI was performed. COMPARISON: CR XR KNEE RT 3V AP,LAT,RICKIE from 10/24/2023 FINDINGS: BONES: There is no fracture or contusion pattern. The sclerotic area on the x-ray corresponds to low T1 and T2 signal cortical lesion along the medial aspect of the proximal tibial diaphysis (series 800 1, image 20). This is most suggestive of a benign lesion such as a fibrous cortical defect. JOINTS: Articular cartilage is unremarkable. No effusion is present. TENDONS: Extensor mechanism: Unremarkable. Medial retinaculum: Unremarkable. Lateral retinaculum: Unremarkable. Popliteus: Unremarkable. MUSCLES: Unremarkable. MENISCI: The medial meniscus is unremarkable. The lateral meniscus is unremarkable. SOFT TISSUES: There is a popliteal cyst present. LIGAMENTS: Anterior Cruciate: Unremarkable. Posterior Cruciate: Unremarkable. Medial Collateral:There is a large near complete versus complete tear of the medial collateral ligame nt at its insertion site into the medial femoral condyle. There is mild surrounding edema. Lateral Collateral: Unremarkable. OTHER: IMPRESSION: 1. Large near complete tear of the proximal medial collateral ligament from its insertion onto the me dial femoral condyle. 2. Eccentric cortical lesion in the proximal diaphysis of the tibia most consistent with a benign les ion such as a fibrous cortical defect. 3. No evidence of a meniscal tear. 4. Popliteal cyst. DATA REPOSITORY:
== END ==
PROVIDERS: PCP Family Medicine; Visit Provider Student in an Organized Health Care Education/Training Program
DX: S83.411A Sprain of medial collateral ligament of right knee, initial encounter (principal); D21.9 Benign neoplasm of connective and other soft tissue, unspecified
CPT/HCPCS: 73721

== ENCOUNTER 2024-08-13 03:56 | Outpatient (CLI) | payer BC, SELFPAY ==
[2024-08-13 13:57] LABS: HCG Quant, Pregnancy 741 mIU/mL (1-3)
[2024-08-13 22:27] LABS: Progesterone 33.8 ng/mL (See Table)
== END 2024-08-13 03:57 | disposition home or self-care (01) ==
PROVIDERS: PCP Family Medicine; Visit Provider Obstetrics & Gynecology
DX: O09.811 Supervision of pregnancy resulting from assisted reproductive technology, first trimester (principal)
CPT/HCPCS: 36415; 84144; 84702

== ENCOUNTER 2024-09-16 01:02 | Outpatient (CLI) | payer BC, SELFPAY ==
--- OUTSIDE RECORDS SUMMARY | 2024-09-16 01:33 | XMS_ITS | Encounter Summary ---
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) - Order Cancelled Specialty Diagnoses / Procedures Referred By Serene martinez Referred To Contact Diagnoses Encounter for assisted reproductive fertility cycle Procedures US DIRECTOR OF ONLINE MERCHANDISING EXAM (BALBIR ONLY) Fiona Albert MD Phone: tel: fax: Referral ID Status Reason Start Date Expiration Date V isits Requested Visits Authorized [id number] Order Cancelled 03/11/2024 4 4 Reason for Visit * 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) - Order Cancelled Specialty Diagnoses / Procedures Referred By Serene martinez Referred To Contact Diagnoses Encounter for assisted reproductive fertility cycle Procedures US DIRECTOR OF ONLINE MERCHANDISING EXAM (BALBIR ONLY) Fiona Albert MD Phone: tel: fax: Referral ID Status Reason Start Date Expiration Date V isits Requested Visits Authorized [id number] Order Cancelled 03/11/2024 4 4 Encounter Details Date Type Department Care Team (Latest Contact Info) Description 05/09/2024 8:44 EDT - 05/09/2024 23:59 EDT Hospital Encounter [facility] OBGYN Services - [facility] [address], [place] [id number] Encounter for assisted reproductive fertility cycle Discharge Disposition: Home or Self Care Social History Tobacco Use Types Packs/Day Years Used Date Smoking Tobacco: Never Smokeless Tobacco: Never Alcohol Use Standard Drinks/Week Comments Yes 0 (1 standard drink = 0.6 oz pur e alcohol) Interpersonal Safety Answer Date Record ed Physically Hurt Never 03/14/2020 Verbally Threaten Not on file 03/14/2020 Comments No Sex and Gender Information Value Date Recorded Sex Assigned at Female 08/06/2024 8:34 EST Legal Sex Female 15:09 EDT Gender Identity Female 08/03/2020 8:37 EST Sexual Orientation Not on file documented as of this encounter Functional Status * Because of a physical, mental, or emotional condition, does this person have difficulty doing errands alone such as visiting a doctor's office or shopping? Answer Date of Assessment Author No 05/01/2018 13:35 EDT documented as of this encounter Mental Status * Because of a physical, mental, or emotional condition, does this person have serious difficulty concentrating, remembering, or making decisions? Answer Entry Date Author No 05/01/2018 13:35 EDT documented in this encounter Medications at Time of Discharge chorionic gonadotropin, human (PREGNYL) 10,000 unit injection Injected 1 mL into the skin once when directed. BILL TO IVF CLINIC PLAN, GLOBAL. 1 Each 04/14/2024 4 Follitropin [place] (GONAL-F) 1,050 unit recon soln Inject 300 Units into the skin daily. 4 Each 04/14/2024 4 ganirelix (ANTAGON) 250 mcg/0.5 mL syringe Inject 0.5 mL into the skin daily. 8 Each 04/14/2024 4 menotropins (MENOPUR) 75 unit solution for subcutaneous injection Inject 150 Units into the skin daily. 15 Each 04/14/2024 4 progesterone in oil 50 mg/mL injection Inject 1 mL into the muscle daily. 3 Each 1 04/14/2024 4 documented as of this encounter Discharge Disposition Disposition Code Departure Means Destination Home or Self Care documented in this encounter Plan of Treatment Not on file documented as of this encounter Procedures Procedure Name Priority Date/Time Associated Diagnosis Comments US DIRECTOR OF ONLINE MERCHANDISING EXAM (BALBIR ONLY) Routine 05/09/2024 9:07 EDT Encounter for assisted reproductive fertility cycle documented in this encounter Results * US DIRECTOR OF ONLINE MERCHANDISING EXAM (BALBIR ONLY) (05/09/2024 9:07 EDT) Anatomical Region Laterality Modality Ultrasound 05/09/2024 9:29 EDT Narrative 05/09/2024 9:52 EDT Indication ======== IVF #2 for unexplained infertility/ RPL Plan fresh ET of 2 embryos and PGT-A of any remaining Med day 10 on GN + Antagon Uterus ====== Uterus: ?Visualized Uterus position: ?? Anteverted Myometrium: ?Fibroid, calcified Endometrium: ?? Trilaminar endometrium Endometrial thickness, total ?? 9.5 mm Right Ovary ========= Rt ovary: ??Stimulated w/ multiple follicles consistent w/ hormonal therapy Rt ovarian follicle D1 23.2 mm Rt ovarian follicle D2 17.6 mm Rt ovarian follicle D3 22.6 mm Rt ovarian follicle mean ?? 21.1 mm Rt ovarian follicle vol ?4.841 cm cubed Rt ovarian follicle D1 22.3 mm Rt ovarian follicle D2 14.6 mm Rt ovarian follicle D3 14.8 mm Rt ovarian follicle mean ?? 17.2 mm Rt ovarian follicle vol ?2.510 cm cubed Rt ovarian follicle D1 14.8 mm Rt ovarian follicle D2 19.5 mm Rt ovarian follicle D3 15.4 mm Rt ovarian follicle mean ?? 16.6 mm Rt ovarian follicle vol ?2.333 cm cubed Rt ovarian follicle D1 15.8 mm Rt ovarian follicle D2 12.2 mm Rt ovarian follicle D3 14.2 mm Rt ovarian follicle mean ?? 14.1 mm Rt ovarian follicle vol ?1.430 cm cubed Rt ovary other findings: ?? 4 quirino Left Ovary ======== Lt ovary: ??Stimulated w/ multiple follicles consistent w/ hormonal therapy Lt ovarian follicle D1 29.6 mm Lt ovarian follicle D2 17.4 mm Lt ovarian follicle D3 24.7 mm Lt ovarian follicle mean ?? 23.9 mm Lt ovarian follicle vol ?6.653 cm cubed Lt ovarian follicle D1 19.3 mm Lt ovarian follicle D2 20.1 mm Lt ovarian follicle D3 25.6 mm Lt ovarian follicle mean ?? 21.7 mm Lt ovarian follicle vol ?5.189 cm cubed Lt ovarian follicle D1 23.9 mm Lt ovarian follicle D2 15.4 mm Lt ovarian follicle D3 22.6 mm Lt ovarian follicle mean ?? 20.6 mm Lt ovarian follicle vol ?4.351 cm cubed Lt ovarian follicle D1 22.8 mm Lt ovarian follicle D2 9.8 mm Lt ovarian follicle D3 19.2 mm Lt ovarian follicle mean ?? 17.3 mm Lt ovarian follicle vol ?2.244 cm cubed Lt ovarian follicle D1 20.2 mm Lt ovarian follicle D2 15.6 mm Lt ovarian follicle D3 16.1 mm Lt ovarian follicle mean ?? 17.3 mm Lt ovarian follicle vol ?2.669 cm cubed Lt ovarian follicle D1 19.6 mm Lt ovarian follicle D2 12.3 mm Lt ovarian follicle D3 15.4 mm Lt ovarian follicle mean ?? 15.8 mm Lt ovarian follicle vol ?1.940 cm cubed Lt ovary other findings: ?? 2 more quirino [place] ========= Appears normal. Free fluid visualized: trace Impression ========= USE (IVF Follicular) - 53090 Anteverted uterus with trilaminar endometrium and anterior calcified intramural fibroid. Stimulated ovaries with maturing follicles bilaterally. Trace pelvic free fluid. Follow-up ======== Check labs, plan per IVF team Comment ======== Z31.83 encounter for assisted reproductive fertility procedure cycle DATE OF SERVICE: 05/09/2024 Procedure Note Sue Hyman MD - 05/09/2024 Indication ======== IVF #2 for unexplained infertility/ RPL Plan fresh ET of 2 embryos and PGT-A of any remaining Med day 10 on GN + Antagon Uterus ====== Uterus: Visualized Uterus position: Anteverted Myometrium: Fibroid, calcified Endometrium: Trilaminar endometrium Endometrial thickness, total 9.5 mm Right Ovary ========= Rt ovary: Stimulated w/ multiple follicles consistent w/ hormonaltherapy Rt ovarian follicle D1 23.2 mm Rt ovarian follicle D2 17.6 mm Rt ovarian follicle D3 22.6 mm Rt ovarian follicle mean 21.1 mm Rt ovarian follicle vol 4.841 cm cubed Rt ovarian follicle D1 22.3 mm Rt ovarian follicle D2 14.6 mm Rt ovarian follicle D3 14.8 mm Rt ovarian follicle mean 17.2 mm Rt ovarian follicle vol 2.510 cm cubed Rt ovarian follicle D1 14.8 mm Rt ovarian follicle D2 19.5 mm Rt ovarian follicle D3 15.4 mm Rt ovarian follicle mean 16.6 mm Rt ovarian follicle vol 2.333 cm cubed Rt ovarian follicle D1 15.8 mm Rt ovarian follicle D2 12.2 mm Rt ovarian follicle D3 14.2 mm Rt ovarian follicle mean 14.1 mm Rt ovarian follicle vol 1.430 cm cubed Rt ovary other findings: 4 quirino Left Ovary ======== Lt ovary: Stimulated w/ multiple follicles consistent w/ hormonaltherapy Lt ovarian follicle D1 29.6 mm Lt ovarian follicle D2 17.4 mm Lt ovarian follicle D3 24.7 mm Lt ovarian follicle mean 23.9 mm Lt ovarian follicle vol 6.653 cm cubed Lt ovarian follicle D1 19.3 mm Lt ovarian follicle D2 20.1 mm Lt ovarian follicle D3 25.6 mm Lt ovarian follicle mean 21.7 mm Lt ovarian follicle vol 5.189 cm cubed Lt ovarian follicle D1 23.9 mm Lt ovarian follicle D2 15.4 mm Lt ovarian follicle D3 22.6 mm Lt ovarian follicle mean 20.6 mm Lt ovarian follicle vol 4.351 cm cubed Lt ovarian follicle D1 22.8 mm Lt ovarian follicle D2 9.8 mm Lt ovarian follicle D3 19.2 mm Lt ovarian follicle mean 17.3 mm Lt ovarian follicle vol 2.244 cm cubed Lt ovarian follicle D1 20.2 mm Lt ovarian follicle D2 15.6 mm Lt ovarian follicle D3 16.1 mm Lt ovarian follicle mean 17.3 mm Lt ovarian follicle vol 2.669 cm cubed Lt ovarian follicle D1 19.6 mm Lt ovarian follicle D2 12.3 mm Lt ovarian follicle D3 15.4 mm Lt ovarian follicle mean 15.8 mm Lt ovarian follicle vol 1.940 cm cubed Lt ovary other findings: 2 more quirino [place] ========= Appears normal. Free fluid visualized: trace Impression ========= USE (IVF Follicular) - 13963 Anteverted uterus with trilaminar endometrium and anterior calcifiedintramural fibroid. Stimulated ovaries with maturing follicles bilaterally. Trace pelvic free fluid. Follow-up ======== Check labs, plan per IVF team Comment ======== Z31.83 encounter for assisted reproductive fertility procedure cycle DATE OF SERVICE: 05/09/2024 Fiona Albert MD [facility] OB ORDERABLES Fin al Result documented in this encounter Visit Diagnoses Diagnosis Encounter for assisted reproductive fertility cycle Encounter for assisted reproductive fertility procedure cycle documented in this encounter Care Teams Steel Plate Printer Relationship Specialty Start Date End Date None, Provider PCP - General 05/09/24 documented as of this encounter
--- OUTSIDE RECORDS SUMMARY | 2024-09-16 01:33 | XMS_ITS | Encounter Summary ---
Author Organization [facility] Address [address] [place] [address] Care Team Providers Care Informatics Analyst Name Role Phone None, Provider Primary Care Provider Unavailabl e Reason for Visit * Reason Onset Date Comments Results 05/16/2024 Encounter Details Date Type Department Care Team (Late st Contact Info) Description 05/16/2024 Telephone [facility] - [address] [phone] Cori Delgado MD [address] [facility], [address] [place] [address] Results Social History Tobacco Use Types Packs/Day Years [...] 05/01/2018 13:35 EDT documented in this encounter Miscellaneous Notes * Telephone Encounter - Cori Delgado MD - 05/16/2024 0906 EDT Note I spoke with Reanna about her embryo quality today. She has some cavitating morulae, however no blastocysts. Discussed the following options: 1) ET tomorrow if her embryos progress (discussed that the endometrium would be a day advanced so this is not our best recommendation) 2) ET today of two cavitating morulae with culture of the rest (the benefit is that she would have a transfer, however success rates would be lower and miscarriage rates higher) 3) Defer ET and keep all embryos in culture with the chance for biopsy/cryo tomorrow (with FET later if she has good quality embryos from this cycle) After a long discussion with her and her , she chooses the the third option, not to have a transfer today and to keep the embryos in culture tomorrow. We will then see if any meet criteria forbiopsy or cryo without biopsy tomorrow. She will stop hormones. She understands she may not have an transferrable embryos from this cycle. All questions answered. Cori Delgado MD BALBIR Attending documented in this encounter Plan of Treatment Not on file documented as of this encounter Visit Diagnoses Not on filedocumented in this encounter Care Teams Informatics Analyst Relationship Specialty Start Date End Date None, Provider PCP - General 05/09/24 documented as of this encounter
--- OUTSIDE RECORDS SUMMARY | 2024-09-16 01:33 | XMS_ITS | Encounter Summary ---
Author Organization [facility] Address [address] [place] [address] Care Team Providers Care Shift Mechanic Name Role Phone Unknown, Provider Primary Care Provider Susana luo Encounter Details Date Type Department Care Team (Late st Contact Info) Description 05/05/2024 Documentation Visit [facility] - [address] [phone] Fiona Albert MD [address] [facility], [address] [place] [address] Encounter for assisted reproductive fertility cycle (Primary Dx) Social History Tobacco Use Types Packs/Day Years [...] 05/01/2018 13:35 EDT documented in this encounter Progress Notes * Fiona Albert MD - 05/05/2024 1137 EDT IVF Plan Note Cycle type: Antagonist Med day 6 Patient's labs, and IVF plan reviewed with Dr. Hyman. 04/30/2024 05/03/2024 05/05/2024 IVF FLOWSHEET (USE FORM) Checklist: Cycle Type Antagon Checklist: Cycle Number 3 Checklist: Plan -- -- Medications: RX Day Baseline 4 6 Medications: RX Date 04/30/2024 05/03/2024 05/05/2024 Medications: Use RX HMG Start 1 1 Medications: Use RX FSH 4 4 Labs: E2 51 231 623 Labs: P4 0.2 Uterus: Endometrial Thickness 3 Uterus: Trilaminar No Uterus: Endometrial Cavity Fluid No Right Ovary: Follicle Size 1 Right Ovary: Follicle Size 2 Right Ovary: Follicle Size 3 Right Ovary: Follicle Size 4 Right Ovary: Follicle Size 5 Right Ovary: Follicle Size 6 Right Ovary: Follicle Size 7 Right Ovary: Follicle Size 8 Right Ovary: Follicle Size 9 Right Ovary: Follicle Size 10 Right Ovary: Follicle <10MM 10 Left Ovary: Follicle Size 11 Left Ovary: Follicle Size 12 Left Ovary: Follicle Size 13 Left Ovary: Follicle Size 15 Left Ovary: Follicle Size 16 Left Ovary: Follicle Size 18 Left Ovary: Follicle Size 19 Left Ovary: Follicle Size 20 Left Ovary: Follicle <10MM #2 7 Please contact the patient with the following plan: Decrease to GonalF 225u and continue 75u Menopur Start antagonist tonight and continue nightly US and labs in 2 days Fiona Albert MD Reproductive Endocrinology and Infertility Fellow (PGY7) [facility] documented in this encounter Plan of Treatment Not on file documented as of this encounter Results * PROGESTERONE (05/05/2024 8:53 EDT) Progesterone 0.6 See Table ng/mL 05/05/2024 12:14 EDT [facility] Comment: Female Reference Ranges: PHYSIOLOGICAL STATUS ?REFERENCE RANGE ? Pre-Pubertal: ? <= 0.2 ng/mL Menstruating: (Non-) Follicular Phase: ? <= 1.4 ng/mL Luteal Phase: ? 3.3 - 25.6 ng/mL Mid-luteal Phase: ? 4.4 - 28.0 ng/mL Postmenopausal: ? <= 0.7 ng/mL : -------- First Trimester: ?11.2 - 90.0 ng/mL Second Trimester: ? 25.6 - 89.4 ng/mL Third Trimester: ?48.4 - 422.5ng/mL For ectopic , consult a pathologist. Blood VENOUS BLOOD / Unknown Venipuncture / Unknown 05/05/2024 8:53 EDT 05/05/2024 9:11 EDT us Sue Hyman MD CHEMISTRY & BLOOD GAS ORD ERABLES Final Result [facility] [address] [place] [address] documented in this encounter Visit Diagnoses Diagnosis Encounter for assisted reproductive fertility cycle- Primary Encounter for assisted reproductive fertility procedure cycle documented in this encounter Care Teams Shift Mechanic Relationship Specialty Start Date End Date Unknown, Provider, PCP - General 10/02/23 05/08/24 documented as of this encounter
--- OUTSIDE RECORDS SUMMARY | 2024-09-16 01:33 | XMS_ITS | Encounter Summary ---
Author Organization [facility] Address [address] [place] [address] Care Team Providers Care Therapist Rrt Name Role Phone None, Provider Primary Care Provider Unavailabl e Reason for Visit * Reason Comments Infertility Baseline Encounter Details Date Type Department Care Team (Late st Contact Info) Description 07/07/2024 8:40 EST Procedure visit [facility] Reproductive Medicine [facility] Infertility Center - [address] [phone] Laila Whitfield MD [address] [place] [address], [address] [place] [address] Encounter for assisted reproductive fertility procedure cycle (Primary Dx) Social History Tobacco Use [...] on file documented as of this encounter Last Filed Vital Signs Vital Sign Reading Time Taken Comments Blood Pressure 110/70 07/07/2024 0844 EST Pulse - - Temperature - - Respiratory Rate - - Oxygen Saturation - - Inhaled Oxygen Concentration - - Weight 65.8 kg (145 lb) 07/07/2024 0844 EST Height 160 cm (5' 3) 07/07/2024 0844 EST Body Mass Index 25.69 07/07/2024 0844 EST documented in this encounter Functional Status * Because of [...] Progress Notes * Fiona Albert MD - 07/07/2024 0840 EST BASELINE FET VISIT Date: 07/07/2024 HPI: Reanna Espinoza is a 39 y.o. with unexplained infertility, recurrent loss presenting for baseline US visit for FET cycle after freeze all cycle for PGT-A. In prior counseling with Dr. Delgado, the patient had been counseled regarding number of embryos to transfer and decided on1 euploid embryo, male. This was confirmed today. Consent will need to be signed by patient and herpartner. Baseline Scan 07/07/2024: 3 mm endometrium Quiescent ovaries, small hemorrhagic cyst on right Labs today: Results for orders placed or performed in visit on 07/07/24 PROGESTERONE Result Value Ref Range Progesterone 0.3 See Table ng/mL ESTRADIOL, ADULTS Result Value Ref Range Estradiol 12 See Note pg/mL Past Medical History: Diagnosis Date Activity, other involving cardiorespiratory exercise 09/30/23- no SOB with 2 FOS Exercise involving exercise classes Exercise involving housework Exercise involving jogging Exercise involving walking Retained products of conception after miscarriage 02/10/2019 Uterine polyp No past surgical history on file. OB History Para Term AB Living 3 0 0 0 2 0 SAB IAB Ectopic Multiple Live Births 2 0 0 0 0 # Outcome Date GA Lbr Tim/2nd Weight Sex Type Anes PTL Lv 3 2 SAB 11/2020 5w0d SAB Comments: anembryonic following FET 1 12/2018 SAB Patient Vitals for the past 24 hrs: BP Height Weight 07/07/24 0844 110/70 160 cm (63) 65.8 kg (145 lb) GEN: alert and oriented, cooperative, no distress, appears stated age Psych: Exhibits appropriate mood and judgement. Trial transfer not performed as recent mock (04/30/24) PLAN Estrogen protocol for FET Transfer: 1 euploid embryo, XY The patient was discussed with Dr. Whitfield and Danny. Fiona Albert MD Reproductive Endocrinology and Infertility Fellow (PGY7) [facility] I was present and immediately available in the office as the supervising physician during the examination and evaluation of this patient, and discussed the patient with the resident/fellow . Laila Whitfield MD documented in this encounter Plan of Treatment Scheduled Orders Name Type Priority Associated Diagnoses Orde r Schedule THAWING OF CRYOPRESERVED, EMBRYO Procedures Routine Encounter for assisted reproductive fertility procedure cycle Expected: 07/07/2024 (Approximate), Expires: 07/07/2025 LABORATORY PREPARATION OF EMBRYO(S) FOR TRANSFER Procedures Routine Encounter for assisted reproductive fertility procedure cycle Expected: 07/07/2024 (Approximate), Expires: 07/07/2025 TRANSFER OF EMBRYO, INTRA-UTERINE Procedures Routine Encounter for assisted reproductive fertility procedure cycle Expected: 07/07/2024 (Approximate), Expires: 07/07/2025 documented as of this encounter Procedures Procedure Name Priority Date/Time Associated Diagnosis Comments PROGESTERONE Routine 07/07/2024 9:06 EST Encounter for assisted reproductive fertility procedure cycle ESTRADIOL, ADULTS Routine 07/07/2024 9:0 6 EST Encounter for assisted reproductive fertility procedure cycle documented in this encounter Results * PROGESTERONE (07/24/2024 9:10 EST) Progesterone 25.3 See Table ng/mL 07/24/2024 10:34 EST [facility] Comment: Female Reference Ranges: [...] VENOUS BLOOD / Unknown Venipuncture / Unknown 07/24/2024 9:10 EST 07/24/2024 9:34 EST Fiona Albert MD CHEMISTRY & BLOOD GAS OR DERABLES Final Result [facility] [address] [place] [address] * ESTRADIOL, ADULTS (07/15/2024 8:56 EST) Estradiol 187 See Note pg/mL 07/15/2024 10:22 EST [facility] Comment: NOTE: FEMALE REFERENCE RANGES: MENSTRUATING ? By cycle day relative to LH peak Follicular ?(-12 to -4 days) ??20-144 pg/mL Midcycle ?(-3 to +2 days) ?? 64-357 pg/mL Luteal ?(+4 to +12 days) ??56-214 pg/mL POSTMENOPAUSAL ?<32 pg/mL *Cross reactivity with Fulvestrant could lead to a falsely elevated estradiol result in patients treated with this drug. Blood VENOUS BLOOD / Unknown Venipuncture / Unknown 07/15/2024 8:56 EST 07/15/2024 9:10 EST Fiona Albert MD CHEMISTRY & BLOOD GAS OR DERABLES Final Result Performing Organization Address [facility] de Phone Number [facility] [address] [place] [address] * ESTRADIOL, ADULTS (07/07/2024 9:06 EST) Estradiol 12 See Note pg/mL 07/07/2024 10:21 EST [facility] Comment: NOTE: FEMALE REFERENCE RANGES: MENSTRUATING ? By cycle day relative to LH peak Follicular ?(-12 to -4 days) ??20-144 pg/mL Midcycle ?(-3 to +2 days) ?? 64-357 pg/mL Luteal ?(+4 to +12 days) ??56-214 pg/mL POSTMENOPAUSAL ?<32 pg/mL *Cross reactivity with Fulvestrant could lead to a falsely elevated estradiol result in patients treated with this drug. Blood VENOUS BLOOD / Unknown Venipuncture / Unknown 07/07/2024 9:06 EST 07/07/2024 9:30 EST Fiona Albert MD CHEMISTRY & BLOOD GAS OR DERABLES Final Result Performing Organization Address [facility] de Phone Number [facility] [address] [place] [address] * PROGESTERONE (07/07/2024 9:06 EST) Progesterone 0.3 See Table ng/mL 07/07/2024 10:22 EST [facility] Comment: Female Reference Ranges: [...] VENOUS BLOOD / Unknown Venipuncture / Unknown 07/07/2024 9:06 EST 07/07/2024 9:30 EST us Fiona Albert MD CHEMISTRY & BLOOD GAS OR DERABLES Final Result [facility] [address] [place] [address] documented in this encounter Visit Diagnoses Diagnosis Encounter for assisted reproductive fertility procedure cycle- Primary documented in this encounter Care Teams Therapist Rrt Relationship Specialty Start Date End Date None, Provider PCP - General 05/09/24 documented as of this encounter
--- OUTSIDE RECORDS SUMMARY | 2024-09-16 01:33 | XMS_ITS | Encounter Summary ---
Author Organization [facility] Address [address] [place] [address] Care Team Providers Care Maintenance Inspector Name Role Phone Unknown, Provider Primary Care Provider Susana luo Encounter Details Date Type Department Care Team (Late st Contact Info) Description 05/05/2024 8:45 EDT Phlebotomy Only [facility] ED Center 2 Phlebotomy [address], [place] [phone] Computer Lab Para Professional, Acc Phlebotomy Encounter for assisted reproductive fertility procedure cycle; Encounter for assisted reproductive fertility cycle Social History Tobacco Use Types Packs/Day Years [...] 05/01/2018 13:35 EDT documented in this encounter Plan of Treatment Not on file documented as of this encounter Procedures Procedure Name Priority Date/Time Associated Diagnosis Comments PROGESTERONE Add-On 05/05/2024 8:53 EDT Encounter for assisted reproductive fertility cycle ESTRADIOL, ADULTS Routine 05/05/2024 8:5 3 EDT Encounter for assisted reproductive fertility procedure cycle documented in this encounter Results * PROGESTERONE (05/05/2024 8:53 EDT) Progesterone 0.6 See Table ng/mL 05/05/2024 12:14 EDT [facility] Comment: Female Reference [...] & BLOOD GAS ORD ERABLES Final Result Performing Organization Address [facility] de Phone Number [facility] [address] [place] [address] * ESTRADIOL, ADULTS (05/05/2024 8:53 EDT) Estradiol 623 See Note pg/mL 05/05/2024 10:17 EDT [facility] Comment: NOTE: FEMALE [...] 05/05/2024 8:53 EDT 05/05/2024 9:11 EDT us Meliza Sena MD CHEMISTRY & BLOOD GAS ORDER SUNSHINE Final Result Performing Organization Address [facility] Co de Phone Number [facility] [address] [place], [place] [phone] documented in this encounter Visit Diagnoses Diagnosis Encounter for assisted reproductive fertility procedure cycle Encounter for assisted reproductive fertility cycle Encounter for assisted reproductive fertility procedure cycle documented in this encounter Care Teams Maintenance Inspector Relationship Specialty Start Date End Date Unknown, Provider, PCP - General 10/02/23 05/08/24 documented as of this encounter
--- OUTSIDE RECORDS SUMMARY | 2024-09-16 01:33 | XMS_ITS | Encounter Summary ---
Author Organization [facility] Address [address] [place] [address] Care Team Providers Care Kickboxing Instructor Name Role Phone None, Provider Primary Care Provider Unavailabl e Encounter Details Date Type Department Care Team (Late st Contact Info) Description 08/13/2024 Lab Requisition [facility] Pathology & Laboratory Medicine - [address] [address] Outr Resulting Lab, Provider Social History Tobacco Use Types Packs/Day Years [...] Priority Date/Time Associated Diagnosis Comments PROGESTERONE Routine 08/13/2024 13:04 EST documented in this encounter Results * PROGESTERONE (08/13/2024 13:04 EST) Progesterone 33.8 See Table ng/mL 08/13/2024 22:23 EST [facility] Comment: Female Reference Ranges: PHYSIOLOGICAL [...] a pathologist. Blood VENOUS BLOOD / Unknown 08/13/2024 13:04 EST 08/13/2024 21:44 EST us Provider Outr Resulting Lab CHEMISTRY & BLOOD GA S ORDERABLES Final Result [facility] [address] [place] [address] documented in this encounter Visit Diagnoses Not on filedocumented in this encounter Care Teams Kickboxing Instructor Relationship Specialty Start Date End Date None, Provider PCP - General 05/09/24 documented as of this encounter
--- OUTSIDE RECORDS SUMMARY | 2024-09-16 01:33 | XMS_ITS | Encounter Summary ---
Author Organization [facility] Address [address] [place] [address] Care Team Providers Care Slot Machine Mechanic Name Role Phone Unknown, Provider MD Primary Care Provider Unava ilable None, Provider Primary Care Provider Unavailabl e Reason for Visit * Reason Comments Procedure IVF monitoring Encounter Details Date Type Department Care Team (Late st Contact Info) Description 05/07/2024 8:20 EDT Procedure visit [facility] Reproductive Medicine [facility] Infertility Center - [address] [phone] Meliza Sena MD [address] [facility] [address] [place] [address] Encounter for assisted reproductive fertility cycle (Primary Dx); Encounter for assisted reproductive fertility procedure cycle Social History Tobacco Use Types Packs/Day [...] Progress Notes * Fiona Albert MD - 05/07/2024 0820 EDT IVF Plan Note Cycle type: Antagonist Med day 8 04/30/2024 05/03/2024 05/05/2024 05/07/2024 IVF FLOWSHEET (USE FORM) Medications: RX Day Baseline 4 6 8 Medications: RX Date 04/30/2024 05/03/2024 05/05/2024 05/07/2024 Medications: Use RX HMG Start 1 1 1 Medications: Use RX FSH 4 4 3 Medications: RX Antagon Start 05/05/2024 Labs: E2 51 [phone] Labs: P4 0.2 0.8 Uterus: Endometrial Thickness 3 9 Uterus: Trilaminar No Yes Uterus: Endometrial Cavity Fluid No No Right Ovary: Follicle Size 1 14 mm Right Ovary: Follicle Size 2 13 Right Ovary: Follicle Size 3 12 mm Right Ovary: Follicle Size 4 11 mm Right Ovary: Follicle Size 5 Right Ovary: Follicle Size 6 Right Ovary: Follicle Size 7 Right Ovary: Follicle Size 8 Right Ovary: Follicle Size 9 Right Ovary: Follicle Size 10 Right Ovary: Follicle <10MM 10 Left Ovary: Follicle Size 11 17 mm Left Ovary: Follicle Size 12 17 mm Left Ovary: Follicle Size 13 15 mm Left Ovary: Follicle Size 15 14 mm Left Ovary: Follicle Size 16 14 mm Please contact the patient with the following plan: Increase to GonalF 262.5u and continue 75u Menopur Continue antagonist nightly US and labs in 2 days Fiona Albert MD Reproductive Endocrinology and Infertility Fellow ([id number]) [facility] * Meliza Sena MD - 05/07/2024 0820 EDT Attestation statement: I discussed the patient with the resident/fellow at the time of the visit. Moraima with the findings and the plan of care documented in the resident's/fellow's note. documented in this encounter Plan of Treatment Not on file documented as of this encounter Procedures Procedure Name Priority Date/Time Associated Diagnosis Comments PROGESTERONE Routine 05/07/2024 8:32 EDT Encounter for assisted reproductive fertility cycle ESTRADIOL, ADULTS Routine 05/07/2024 8:3 2 EDT Encounter for assisted reproductive fertility procedure cycle documented in this encounter Results * PROGESTERONE (05/07/2024 8:32 EDT) Progesterone 0.8 See Table ng/mL 05/07/2024 9:49 EDT [facility] Comment: Female Reference [...] VENOUS BLOOD / Unknown Venipuncture / Unknown 05/07/2024 8:32 EDT 05/07/2024 8:55 EDT us Sue Hyman MD CHEMISTRY & BLOOD GAS ORD ERABLES Final Result Performing Organization Address [facility] Co de Phone Number [facility] [address] [place] [address] * ESTRADIOL, ADULTS (05/07/2024 8:32 EDT) [facility] Signature Estradiol 1,050 See Note pg/mL 05/07/2024 9:49 EDT [facility] Comment: NOTE: FEMALE [...] VENOUS BLOOD / Unknown Venipuncture / Unknown 05/07/2024 8:32 EDT 05/07/2024 8:55 EDT us Meliza Sena MD CHEMISTRY & BLOOD GAS ORDER SUNSHINE Final Result Performing Organization Address [facility]/ZIP Co de Phone Number [facility] [address] [place] [address] documented in this encounter Visit Diagnoses Diagnosis Encounter for assisted reproductive fertility cycle- Primary Encounter for assisted reproductive fertility procedure cycle Encounter for assisted reproductive fertility procedure cycle documented in this encounter Care Teams Slot Machine Mechanic Relationship Specialty Start Date End Date Unknown, Provider, PCP - General 10/02/23 05/08/24 None, Provider PCP - General 05/09/24 documented as of this encounter
--- OUTSIDE RECORDS SUMMARY | 2024-09-16 01:33 | XMS_ITS | Encounter Summary ---
Author Organization [facility] Address [address] [place] [address] Care Team Providers Care Bridge Gang Worker Name Role Phone None, Provider Primary Care Provider Unavailabl e Reason for Referral * FINANCIAL ADMINISTRATION OFFICER (Routine/Next Available) - Authorization Not Required Specialty Diagnoses / Procedures Referred By Contac t Referred To Contact Diagnoses Encounter for assisted reproductive fertility cycle Procedures US BASELINE INVITRO Sue Hyman MD Phone: tel: fax: Referral ID Status Reason Start Date Expiration Date Visits Requested Visits Authorized [id number] Authorization Not Required 4 1 1 Reason for Visit * FINANCIAL ADMINISTRATION OFFICER (Routine/Next Available) - Authorization Not Required Specialty Diagnoses / Procedures Referred By Contac t Referred To Contact Diagnoses Encounter for assisted reproductive fertility cycle Procedures US BASELINE INVITRO Sue Hyman MD Phone: tel: fax: Referral ID Status Reason Start Date Expiration Date Visits Requested Visits Authorized [id number] Authorization Not Required 4 1 1 Encounter Details Date Type Department Care Team (Latest Contact Info) Description 07/07/2024 8:26 EST - 07/07/2024 23:59 EST Hospital Encounter [facility] O[facility]YN Services - [facility] [address] [place] [address] Encounter for assisted reproductive fertility cycle Discharge [...] CLINIC PLAN, GLOBAL. 1 Each 04/14/2024 4 estradioL (ESTRACE) 1 mg tablet Take 3 Tablets by mouth 2 times daily. 200 Tablet 06/17/2024 4 Follitropin [place] (GONAL-F) 1,050 unit recon soln Inject 300 Units into the skin daily. 4 Each 04/14/2024 4 ganirelix (ANTAGON) 250 mcg/0.5 mL syringe Inject 0.5 mL into the skin daily. 8 Each 04/14/2024 4 leuprolide (LUPRON) 1 mg/0.2 mL injection Inject 20 units into the skin daily. Decrease to 10 units when directed. 2 Each 06/17/2024 4 menotropins (MENOPUR) 75 unit solution for subcutaneous injection Inject 150 Units into the skin daily. 15 Each 04/14/2024 4 norgestimate-ethin yl estradioL (ORTHO-CYCLEN) 0.25-35 mg-mcg per tablet Take 1 Tablet by mouth daily. Take active tabs continuously. Discard inactive tabs (4th row of pills) and begin new pack immediately 56 Tablet 05/23/2024 4 progesterone in oil 50 mg/mL injection Inject 1.5 mL into the muscle daily. 30 mL 06/17/2024 5 documented as of this encounter Discharge Disposition Disposition Code Departure Means Destination Home or Self Care documented in this encounter Plan of Treatment Not on file documented as of this encounter Procedures Procedure Name Priority Date/Time Associated Diagnosis Comments US BASELINE INVITRO Routine 07/07/2024 8:28 EST Encounter for assisted reproductive fertility cycle documented in this encounter Results * US BASELINE INVITRO (07/07/2024 8:28 EST) Anatomical Region Laterality Modality Pelvis Ultrasound 07/07/2024 8:42 EST Narrative 07/07/2024 15:23 EST Indication ======== FET baseline Uterus ====== Uterus: ?Visualized Uterus position: ?? Anteverted Myometrium: ?Fibroid Endometrium: ?? Thin endometrium Endometrial thickness, total ?? 2.8 mm Uterus other findings: known 1.5cm anterior fibroid Right Ovary ========= Rt ovary: ??Visualized Rt ovarian cyst D1 13.8 mm Rt ovarian cyst D2 13.4 mm Rt ovarian cyst D3 11.9 mm Rt ovarian cyst mean ?? 13.0 mm Rt ovarian cyst vol ?1.152 cm cubed Rt ovarian cyst findings: ??Hemorrhagic Rt ovary other findings: ?? quiescent Left Ovary ======== Lt ovary: ??Visualized Outline: ?? Smooth Lt ovary other findings: ?? quiescent Cul de Sac ========= Normal Impression ========= Baseline - [address] 1. Anteverted uterus with thin endometrium, small stable anterior fibroid 2. Quiescent ovaries with small hemorrhagic cyst on the right 3. No significant free fluid Follow-up ======== Labs today, plan per [facility] Team Comment ======== Ultrasound findings discussed w/patient. Z31.83 encounter for assisted reproductive fertility procedure cycle DATE OF SERVICE: 07/07/2024 Procedure Note Laila Whitfield MD - 07/07/2024 Indication ======== FET baseline Uterus ====== Uterus: Visualized Uterus position: Anteverted Myometrium: Fibroid Endometrium: Thin endometrium Endometrial thickness, total 2.8 mm Uterus other findings: known 1.5cm anterior fibroid Right Ovary ========= Rt ovary: Visualized Rt ovarian cyst D1 13.8 mm Rt ovarian cyst D2 13.4 mm Rt ovarian cyst D3 11.9 mm Rt ovarian cyst mean 13.0 mm Rt ovarian cyst vol 1.152 cm cubed Rt ovarian cyst findings: Hemorrhagic Rt ovary other findings: quiescent Left Ovary ======== Lt ovary: Visualized Outline: Smooth Lt ovary other findings: quiescent Cul de Sac ========= Normal Impression ========= Baseline - [address] 1. Anteverted uterus with thin endometrium, small stable anteriorfibroid 2. Quiescent ovaries with small hemorrhagic cyst on the right 3. No significant free fluid Follow-up ======== Labs today, plan per [facility] Team Comment ======== Ultrasound findings discussed w/patient. Z31.83 encounter for assisted reproductive fertility procedure cycle DATE OF SERVICE: 07/07/2024 us Sue Hyman MD IMG US OB ORDERABLES Leticia l Result documented in this encounter Visit Diagnoses Diagnosis Encounter for assisted reproductive fertility cycle Encounter for assisted reproductive fertility procedure cycle documented in this encounter Care Teams Bridge Gang Worker Relationship Specialty Start Date End Date None, Provider PCP - General 05/09/24 documented as of this encounter
--- OUTSIDE RECORDS SUMMARY | 2024-09-16 01:33 | XMS_ITS | Encounter Summary ---
Author Organization [facility] Address [address] [place] [address] Care Team Providers Care Homemaking Rehabilitation Consultant Name Role Phone None, Provider Primary Care Provider Unavailabl e Encounter Details Date Type Department Care Team (Late st Contact Info) Description 08/08/2024 9:00 EST Phlebotomy Only [facility] ED Center 2 Phlebotomy [address], [place] [phone] Rn Home Care, Acc Phlebotomy resulting from assisted reproductive technology in first trimester Social History Tobacco Use Types Packs/Day Years [...] Procedure Name Priority Date/Time Associated Diagnosis Comments QUANT BETA HCG, Routine 08/08/2024 9:06 EST resulting from assisted reproductive technology in first trimester documented in this encounter Results * (ABNORMAL) QUANT BETA HCG, (08/08/2024 9:06 EST) Beta HCG Quant, 47(H) <5 mIU/mL 08/08/2024 10:30 EST [facility] Comment: NOTE: : Negative: Less than 5mIU/mL Indeterminant: Between 5 and 25 mIU/mL, recommend repeat testing in 48 hours Positive: Greater than 25 mIU/mL The results of this assay can be falsely lowered due to the consumption of Biotin. Blood VENOUS BLOOD / Unknown Venipuncture / Unknown 08/08/2024 9:06 EST 08/08/2024 9:18 EST us Sue Hyman MD CHEMISTRY & BLOOD GAS ORD ERABLES Final Result [facility] [address] [place] [address] documented in this encounter Visit Diagnoses Diagnosis resulting from assisted reproductive technology in first trimester documented in this encounter Care Teams Homemaking Rehabilitation Consultant Relationship Specialty Start Date End Date None, Provider PCP - General 05/09/24 documented as of this encounter
--- OUTSIDE RECORDS SUMMARY | 2024-09-16 01:33 | XMS_ITS | Encounter Summary ---
Author Organization [facility] Address [address] [place] [address] Care Team Providers Care Action Finisher Name Role Phone None, Provider Primary Care Provider Unavailabl e Reason for Visit * Reason Comments Follow-up Encounter Details Date Type Department Care Team (Late st Contact Info) Description 07/15/2024 9:00 EST Nurse Only [facility] Reproductive Medicine & Infertility Center - [address] [address] Nurse, JUJU Morales Encounter for assisted reproductive fertility procedure cycle [...] documented in this encounter Progress Notes * Meliza Moise RN - 07/15/2024 0900 EST Blood drawn via right AC using a butterfly needle. Pt tolerated procedure well. Pressure and 2x2 applied, secured with paper tape. SST tube(s) sent to the lab per order. I was supervised by Dr. Sue Hyman who was present and immediately available in the office suite. MELIZA MOISE RN 07/15/2024 9:03 documented in this encounter Plan of Treatment Not on file documented as of this encounter Procedures Procedure Name Priority Date/Time Associated Diagnosis Comments ESTRADIOL, ADULTS Routine 07/15/2024 8:5 6 EST Encounter for assisted reproductive fertility procedure cycle documented in this encounter Results * ESTRADIOL, ADULTS (07/15/2024 8:56 EST) Estradiol 187 See Note pg/mL 07/15/2024 10:22 EST [facility] Comment: NOTE: FEMALE REFERENCE RANGES: [...] Unknown 07/15/2024 8:56 EST 07/15/2024 9:10 EST us Fiona Albert MD CHEMISTRY & BLOOD GAS OR DERABLES Final Result [facility] [address] [place] [address] documented in this encounter Visit Diagnoses Diagnosis Encounter for assisted reproductive fertility procedure cycle- Primary documented in this encounter Care Teams Action Finisher Relationship Specialty Start Date End Date None, Provider PCP - General 05/09/24 documented as of this encounter
--- OUTSIDE RECORDS SUMMARY | 2024-09-16 01:33 | XMS_ITS | Encounter Summary ---
Author Organization [facility] Address [address] [place] [address] Care Team Providers Care Resin Mixer Name Role Phone None, Provider Primary Care Provider Unavailabl e Reason for Visit * Reason Comments Procedure IVF monitoring Encounter Details Date Type Department Care Team (Late st Contact Info) Description 05/09/2024 9:35 EDT Procedure visit [facility] [address] [phone] Sue Hyman MD [address] [facility], Level [address] [place] [address] Encounter for assisted reproductive fertility [...] Progress Notes * Fiona Albert MD - 05/09/2024 0935 EDT IVF Plan Note Cycle type: Antagonist Med day 10 Patient's labs, US and IVF plan reviewed with Dr. Hyman. 04/30/2024 05/03/2024 05/05/2024 05/07/2024 IVF FLOWSHEET (USE FORM) Medications: RX Day Baseline 4 6 8 Medications: RX Date 04/30/2024 05/03/2024 05/05/2024 05/07/2024 Medications: Use RX HMG Start 1 1 1 Medications: Use RX FSH 4 4 3 Medications: RX Antagon Start 05/05/2024 Labs: E2 51 [phone] Labs: P4 0.2 0.8 Uterus: Endometrial Thickness [...] Left Ovary: Follicle Size 16 14 mm Left Ovary: Follicle Size 18 Left Ovary: Follicle Size 19 Left Ovary: Follicle Size 20 Left Ovary: Follicle <10MM #2 7 05/09/2024 IVF FLOWSHEET (USE FORM) Medications: RX Day 10 Medications: RX Date 05/09/2024 Medications: Use RX HMG Start 1 Medications: Use RX FSH -- Medications: RX Antagon Start 05/05/2024 Labs: E2 2047 Labs: P4 0.9 Uterus: Endometrial Thickness 9.5 Uterus: Trilaminar Yes Uterus: Endometrial Cavity Fluid No Right Ovary: Follicle Size 1 21 mm Right Ovary: Follicle Size 2 17 Right Ovary: Follicle Size 3 17 mm Right Ovary: Follicle Size 4 14 mm Right Ovary: Follicle Size 5 Right Ovary: Follicle Size 6 Right Ovary: Follicle Size 7 Right Ovary: Follicle Size 8 Right Ovary: Follicle Size 9 Right Ovary: Follicle Size 10 Right Ovary: Follicle <10MM 4 Left Ovary: Follicle Size 11 24 mm Left Ovary: Follicle Size 12 22 mm Left Ovary: Follicle Size 13 21 mm Left Ovary: Follicle Size 15 17 mm Left Ovary: Follicle Size 16 17 mm Left Ovary: Follicle Size 18 16 mm Left Ovary: Follicle Size 19 Left Ovary: Follicle Size 20 Left Ovary: Follicle <10MM #2 2 Patient contacted with the following plan and reviewed by phone: hCG trigger tonight at 10:30pm for retrieval Saturday at 9:30am Lab and anesthesia notified Instructions sent via [employer] Fiona Albert MD Reproductive Endocrinology and Infertility Fellow ([id number]) [facility] Attestation statement: I discussed the patient with the Fellow at the time of the patient's visit. I agree with the findings and plan of care. Sue Hyman MD Reproductive Endocrinology and Infertility documented in this encounter Plan of Treatment Not on file documented as of this encounter Visit Diagnoses Diagnosis Encounter for assisted reproductive fertility cycle- Primary Encounter for assisted reproductive fertility procedure cycle documented in this encounter Care Teams Resin Mixer Relationship Specialty Start Date End Date None, Provider PCP - General 05/09/24 documented as of this encounter
--- OUTSIDE RECORDS SUMMARY | 2024-09-16 01:33 | XMS_ITS | Encounter Summary ---
Author Organization [facility] Address [address] [place] [address] Care Team Providers Care Cotton Wringer Name Role Phone None, Provider Primary Care Provider Unavailabl e Encounter Details Date Type Department Care Team (Late st Contact Info) Description 05/09/2024 8:30 EDT Phlebotomy Only [facility] ED Center 2 Phlebotomy [address] [place], [place] [phone] Director Food And Beverage, Acc Phlebotomy Encounter for assisted reproductive fertility [...] Priority Date/Time Associated Diagnosis Comments PROGESTERONE Routine 05/09/2024 8:35 EDT Encounter for assisted reproductive fertility cycle ESTRADIOL, ADULTS Routine 05/09/2024 8:3 5 EDT Encounter for assisted reproductive fertility procedure cycle documented in this encounter Results * PROGESTERONE (05/09/2024 8:35 EDT) Progesterone 0.9 See Table ng/mL 05/09/2024 9:53 EDT [facility] Comment: Female Reference Ranges: PHYSIOLOGICAL [...] VENOUS BLOOD / Unknown Venipuncture / Unknown 05/09/2024 8:35 EDT 05/09/2024 9:02 EDT us Sue Hyman MD CHEMISTRY & BLOOD GAS ORD ERABLES Final Result Performing Organization Address [facility] de Phone Number [facility] [address] [place] [address] * ESTRADIOL, ADULTS (05/09/2024 8:35 EDT) [facility] Estradiol 2,047 See Note pg/mL 05/09/2024 9:53 EDT [facility] Comment: NOTE: FEMALE REFERENCE RANGES: [...] VENOUS BLOOD / Unknown Venipuncture / Unknown 05/09/2024 8:35 EDT 05/09/2024 9:02 EDT us Meliza Sena MD CHEMISTRY & BLOOD GAS ORDER SUNSHINE Final Result Performing Organization Address [facility] Co de Phone Number [facility] [address] [place], [place] [phone] documented in this encounter Visit Diagnoses Diagnosis Encounter for assisted reproductive fertility procedure cycle Encounter for assisted reproductive fertility cycle Encounter for assisted reproductive fertility procedure cycle documented in this encounter Care Teams Cotton Wringer Relationship Specialty Start Date End Date None, Provider PCP - General 05/09/24 documented as of this encounter
--- OUTSIDE RECORDS SUMMARY | 2024-09-16 01:33 | XMS_ITS | Encounter Summary ---
Author Organization [facility] Address [address] [place] [address] Care Team Providers Care Embedded Firmware Engineer Name Role Phone None, Provider Primary Care Provider Unavailabl e Encounter Details Date Type Department Care Team (Late st Contact Info) Description 07/28/2024 Orders Only [facility] Reproductive Medicine & Infertility Center - [address] [address] Rebecca Wilcox RN Encounter for assisted reproductive fertility procedure cycle [...] documented as of this encounter Results * (ABNORMAL) QUANT BETA HCG, (08/06/2024 8:47 EST) Beta HCG Quant, 19(H) <5 mIU/mL 08/06/2024 10:11 EST [facility] Comment: NOTE: : Negative: Less than 5mIU/mL Indeterminant: Between 5 and 25 mIU/mL, recommend repeat testing in 48 hours Positive: Greater than 25 mIU/mL The results of this assay can be falsely lowered due to the consumption of Biotin. Blood VENOUS BLOOD / Unknown Venipuncture / Unknown 08/06/2024 8:47 EST 08/06/2024 9:18 EST us Fiona Albert MD CHEMISTRY & BLOOD GAS OR DERABLES Final Result [facility] [address] [place] [address] documented in this encounter Visit Diagnoses Diagnosis Encounter for assisted reproductive fertility procedure cycle- Primary documented in this encounter Care Teams Embedded Firmware Engineer Relationship Specialty Start Date End Date None, Provider PCP - General 05/09/24 documented as of this encounter
--- OUTSIDE RECORDS SUMMARY | 2024-09-16 01:33 | XMS_ITS | Encounter Summary ---
Author Organization [facility] Address [address] [place] [address] Care Team Providers Care Public Services Librarian Name Role Phone None, Provider Primary Care Provider Unavailabl e Encounter Details Date Type Department Care Team (Late st Contact Info) Description 08/10/2024 9:30 EST Phlebotomy Only [facility] ED Center 2 Phlebotomy [address], [place] [id number] Supervisor Tubing, Acc Phlebotomy resulting from assisted reproductive technology [...] Associated Diagnosis Comments QUANT BETA HCG, Routine 08/10/2024 10:14 EST resulting from assisted reproductive technology in first trimester documented in this encounter Results * (ABNORMAL) QUANT BETA HCG, (08/10/2024 10:14 EST) Beta HCG Quant, 146(H) <5 mIU/mL 08/10/2024 11:27 EST [facility] Comment: NOTE: : Negative: Less than 5mIU/mL Indeterminant: Between 5 and 25 mIU/mL, recommend repeat testing in 48 hours Positive: Greater than 25 mIU/mL The results of this assay can be falsely lowered due to the consumption of Biotin. Blood VENOUS BLOOD / Unknown Venipuncture / Unknown 08/10/2024 10:14 EST 08/10/2024 10:38 EST us Sue Hyman MD CHEMISTRY & BLOOD GAS ORD ERABLES Final Result [facility] [address] [place] [address] documented in this encounter Visit Diagnoses Diagnosis resulting from assisted reproductive technology in first trimester documented in this encounter Care Teams Public Services Librarian Relationship Specialty Start Date End Date None, Provider PCP - General 05/09/24 documented as of this encounter
--- OUTSIDE RECORDS SUMMARY | 2024-09-16 01:33 | XMS_ITS | Encounter Summary ---
Author Organization [facility] Address [address] [place] [address] Care Team Providers Care Antichecking Iron Worker Name Role Phone None, Provider Primary Care Provider Unavailabl e Encounter Details Date Type Department Care Team (Late st Contact Info) Description 07/28/2024 8:37 EST - 07/28/2024 9:11 EST Hospital Encounter [facility] Reproductive Medicine & Infertility Center - [address] [address] Sue Hyman MD [address] [facility], [facility] [address] [place] [address] Encounter for assisted reproductive fertility procedure cycle [Z31.83] (Primary Dx) Discharge Disposition: Home or Self Care Social [...] or Self Care documented in this encounter Procedure Notes * Sue Hyman MD - 07/28/2024 0900 ESTProcedure(s): TRANSFER OF EMBRYO, INTRA-UTERINE Pre-Procedure Diagnose(s): Encounter for assisted reproductive fertility procedure cycle Post-Procedure Diagnose(s): Encounter for assisted reproductive fertility procedure cycle EMBRYO TRANSFER PROCEDURE NOTE Consents verified and a standard WHO surgical time out verification procedure performed prior to start of embryo transfer. The patient, providers, and the embryology lab were all in agreement to transfer 1 embryo. The grade was: 3AA, euploid XY The patient will have remaining cryopreserved 2 untested embryos (2021 cycle) and 2 euploid embryosfrom recent cycle. We were in agreement to discard the two aneuploid embryos. Findings: (1) Normal-appearing anteverted uterus with thickened trilaminar endometrial stripe, measuring 10mm. (2) Transfer completed using Salcedo catheter with stylet guide with gentle curve on catheter. No difficulty. Sterile speculum inserted, cervix cleaned with sterile culture media. Endocervix cleaned of cervical mucus with small cotton swab. No bleeding occurred. Under ultrasound guidance, the Salcedo embryo transfer catheter was passed without difficulty in one attempt into the endocervical canal to the level of the internal cervical os. The lab was then notified to load the embryo into the inner catheter. The inner guide catheter was then removed from the outer sheath, and a new inner catheter with embryo loaded was introduced to approximately 1 cm from the uterine fundus under ultrasound guidance. The embryo was then transferred into the uterine cavity. After a 15 second pause, the catheter was removed and returned to the lab. There was some mucus on the catheter, and no embryo was retained. Nouterine cramping occurred. The speculum was then removed. The patient had a full bladder throughoutthe procedure. She then immediately ambulated to the restroom to empty her bladder. Transfer performed by Dr. Hyman, assisted by Dr. Albert. First serum HCG to be drawn on 08/06/24. Megan Albert MD PGY7 Fellow Reproductive Endocrinology & Infertility [facility] 07/28/2024 Attestation statement: I was present during the entire procedure during the patient's clinic visit.I agree with the findings and plan of care documented in the above note. Sue Hyman MD documented in this encounter Plan of Treatment Not on file documented as of this encounter Procedures Procedure Name Priority Date/Time Associated Diagnosis Comments POC IVF/BALBIR US GUIDANCE Routine 07/28/2024 9:12 EST documented in this encounter Results * POC IVF/BALBIR US GUIDANCE (07/28/2024 9:12 EST) Narrative 07/28/2024 9:12 EST This is a non-reportable exam. us Fiona Albert MD IMG US POC ORDERABLES Fi nal Result documented in this encounter Visit Diagnoses Diagnosis Encounter for assisted reproductive fertility procedure cycle [Z31.83]- Primary Encounter for assisted reproductive fertility procedure cycle documented in this encounter Care Teams Antichecking Iron Worker Relationship Specialty Start Date End Date None, Provider PCP - General 05/09/24 documented as of this encounter
--- OUTSIDE RECORDS SUMMARY | 2024-09-16 01:33 | XMS_ITS | Encounter Summary ---
Author Organization [facility] Address [address] [place] [address] Care Team Providers Care Sales Activity Manager Name Role Phone None, Provider Primary Care Provider Unavailabl e Reason for Visit * Reason Comments Follow-up Encounter Details Date Type Department Care Team (Late st Contact Info) Description 07/24/2024 8:30 EST Nurse Only [facility] Reproductive Medicine & Infertility Center - [address] [address] Nurse, JUJU Morales Encounter for [...] documented in this encounter Progress Notes * Carmen Gray MA - 07/24/2024 0830 EST Blood drawn via left ac using butterfly, per order in chart. Patient tolerated procedure well. Pressure and 2x2 applied, secured with gauze and band aid. 1 SST tube(s) sent to lab. I was supervised by Sue Hyman (Attending), who was present and immediately available in the office suite CARMEN GRAY MA 07/24/2024 9:11 documented in this encounter Plan of Treatment Not on file documented as of this encounter Procedures Procedure Name Priority Date/Time Associated Diagnosis Comments PROGESTERONE Routine 07/24/2024 9:10 EST Encounter for assisted reproductive fertility procedure cycle documented in this encounter Results * PROGESTERONE (07/24/2024 9:10 EST) Progesterone 25.3 See Table ng/mL 07/24/2024 10:34 EST [facility] Comment: Female Reference Ranges: [...] Unknown 07/24/2024 9:10 EST 07/24/2024 9:34 EST us Fiona Albert MD CHEMISTRY & BLOOD GAS OR DERABLES Final Result [facility] [address] [place] [address] documented in this encounter Visit Diagnoses Diagnosis Encounter for assisted reproductive fertility procedure cycle- Primary documented in this encounter Care Teams Sales Activity Manager Relationship Specialty Start Date End Date None, Provider PCP - General 05/09/24 documented as of this encounter
--- OUTSIDE RECORDS SUMMARY | 2024-09-16 01:33 | XMS_ITS | Encounter Summary ---
Author Organization [facility] Address [address] [place] [address] Care Team Providers Care Manager Assisted Living Name Role Phone Unknown, Provider Primary Care Provider Unava ilable Reason for Referral * BRUSH MACHINE SETTER (Routine/Next Available) - Order Cancelled Specialty Diagnoses / Procedures Referred By Serene martinez Referred To Contact Diagnoses Encounter for assisted reproductive fertility cycle Procedures US SEWING MACHINE REPAIRER HELPER EXAM (BALBIR ONLY) Fiona Albert MD Phone: tel: fax: Referral ID Status Reason Start Date Expiration Date V isits Requested Visits Authorized [id number] Order Cancelled 03/11/2024 4 4 Reason for Visit * BRUSH MACHINE SETTER (Routine/Next Available) - Order Cancelled Specialty Diagnoses / Procedures Referred By Serene martinez Referred To Contact Diagnoses Encounter for assisted reproductive fertility cycle Procedures US SEWING MACHINE REPAIRER HELPER EXAM (BALBIR ONLY) Fiona Albert MD Phone: tel: fax: Referral ID Status Reason Start Date Expiration Date V isits Requested Visits Authorized [id number] Order Cancelled 03/11/2024 4 4 Encounter Details Date Type Department Care Team (Latest Contact Info) Description 05/07/2024 8:01 EDT - 05/07/2024 23:59 EDT Hospital Encounter [facility] OBGYN Services - [facility] [address], [place] [id number] [phone] Encounter for assisted reproductive fertility cycle Discharge [...] Name Priority Date/Time Associated Diagnosis Comments US SEWING MACHINE REPAIRER HELPER EXAM (BALBIR ONLY) Routine 05/07/2024 8:05 EDT Encounter for assisted reproductive fertility cycle documented in this encounter Results * US SEWING MACHINE REPAIRER HELPER EXAM (BALBIR ONLY) (05/07/2024 8:05 EDT) Anatomical Region Laterality Modality Ultrasound 05/07/2024 8:21 EDT Narrative 05/07/2024 8:35 EDT Indication ======== IVF #2 for unexplained infertility/ RPL Plan fresh ET of 2 embryos and PGT-A of any remaining Antagon, 11/10 GN Uterus ====== Uterus: ?Visualized Endometrium: ?? Trilaminar endometrium Endometrial thickness, total ?? 8.7 mm Right Ovary ========= Rt ovary: ??Stimulated w/ multiple follicles consistent w/ hormonal therapy Rt ovarian follicle D1 11.7 mm Rt ovarian follicle D2 13.4 mm Rt ovarian follicle D3 13.6 mm Rt ovarian follicle mean ?? 12.9 mm Rt ovarian follicle vol ?1.116 cm cubed Rt ovarian follicle D1 14.0 mm Rt ovarian follicle D2 14.5 mm Rt ovarian follicle D3 14.3 mm Rt ovarian follicle mean ?? 14.2 mm Rt ovarian follicle vol ?1.510 cm cubed Rt ovarian follicle D1 11.3 mm Rt ovarian follicle D2 11.4 mm Rt ovarian follicle D3 13.0 mm Rt ovarian follicle mean ?? 11.9 mm Rt ovarian follicle vol ?0.877 cm cubed Rt ovarian follicle D1 10.7 mm Rt ovarian follicle D2 10.9 mm Rt ovarian follicle D3 11.2 mm Rt ovarian follicle mean ?? 10.9 mm Rt ovarian follicle vol ?0.683 cm cubed Left Ovary ======== Lt ovary: ??Stimulated w/ multiple follicles consistent w/ hormonal therapy Lt ovarian follicle D1 16.9 mm Lt ovarian follicle D2 15.2 mm Lt ovarian follicle D3 18.3 mm Lt ovarian follicle mean ?? 16.8 mm Lt ovarian follicle vol ?2.461 cm cubed Lt ovarian follicle D1 14.8 mm Lt ovarian follicle D2 14.1 mm Lt ovarian follicle D3 12.7 mm Lt ovarian follicle mean ?? 13.8 mm Lt ovarian follicle vol ?1.378 cm cubed Lt ovarian follicle D1 18.6 mm Lt ovarian follicle D2 16.0 mm Lt ovarian follicle D3 15.9 mm Lt ovarian follicle mean ?? 16.8 mm Lt ovarian follicle vol ?2.468 cm cubed Lt ovarian follicle D1 15.6 mm Lt ovarian follicle D2 13.9 mm Lt ovarian follicle D3 14.7 mm Lt ovarian follicle mean ?? 14.7 mm Lt ovarian follicle vol ?1.666 cm cubed Lt ovarian follicle D1 15.9 mm Lt ovarian follicle D2 9.9 mm Lt ovarian follicle D3 14.9 mm Lt ovarian follicle mean ?? 13.6 mm Lt ovarian follicle vol ?1.225 cm cubed Cul [place] Sac ========= No free fluid visualized Impression ========= USE (IVF Follicular) - 06659,?Maturing Folliculogenesis Follow-up ======== after BALBIR noon meeting Comment ======== Z31.83 encounter for assisted reproductive fertility procedure cycle DATE OF SERVICE: 05/07/2024 Procedure Note Meliza Sena MD - 05/07/2024 Indication ======== IVF #2 for unexplained infertility/ RPL Plan fresh ET of 2 embryos and PGT-A of any remaining Antagon, 11/10 GN Uterus ====== Uterus: Visualized Endometrium: Trilaminar endometrium Endometrial thickness, total 8.7 mm Right Ovary ========= Rt ovary: Stimulated w/ multiple follicles consistent w/ hormonaltherapy Rt ovarian follicle D1 11.7 mm Rt ovarian follicle D2 13.4 mm Rt ovarian follicle D3 13.6 mm Rt ovarian follicle mean 12.9 mm Rt ovarian follicle vol 1.116 cm cubed Rt ovarian follicle D1 14.0 mm Rt ovarian follicle D2 14.5 mm Rt ovarian follicle D3 14.3 mm Rt ovarian follicle mean 14.2 mm Rt ovarian follicle vol 1.510 cm cubed Rt ovarian follicle D1 11.3 mm Rt ovarian follicle D2 11.4 mm Rt ovarian follicle D3 13.0 mm Rt ovarian follicle mean 11.9 mm Rt ovarian follicle vol 0.877 cm cubed Rt ovarian follicle D1 10.7 mm Rt ovarian follicle D2 10.9 mm Rt ovarian follicle D3 11.2 mm Rt ovarian follicle mean 10.9 mm Rt ovarian follicle vol 0.683 cm cubed Left Ovary ======== Lt ovary: Stimulated w/ multiple follicles consistent w/ hormonaltherapy Lt ovarian follicle D1 16.9 mm Lt ovarian follicle D2 15.2 mm Lt ovarian follicle D3 18.3 mm Lt ovarian follicle mean 16.8 mm Lt ovarian follicle vol 2.461 cm cubed Lt ovarian follicle D1 14.8 mm Lt ovarian follicle D2 14.1 mm Lt ovarian follicle D3 12.7 mm Lt ovarian follicle mean 13.8 mm Lt ovarian follicle vol 1.378 cm cubed Lt ovarian follicle D1 18.6 mm Lt ovarian follicle D2 16.0 mm Lt ovarian follicle D3 15.9 mm Lt ovarian follicle mean 16.8 mm Lt ovarian follicle vol 2.468 cm cubed Lt ovarian follicle D1 15.6 mm Lt ovarian follicle D2 13.9 mm Lt ovarian follicle D3 14.7 mm Lt ovarian follicle mean 14.7 mm Lt ovarian follicle vol 1.666 cm cubed Lt ovarian follicle D1 15.9 mm Lt ovarian follicle D2 9.9 mm Lt ovarian follicle D3 14.9 mm Lt ovarian follicle mean 13.6 mm Lt ovarian follicle vol 1.225 cm cubed [place] ========= No free fluid visualized Impression ========= USE (IVF Follicular) - 39419,?Maturing Folliculogenesis Follow-up ======== after BALBIR noon meeting Comment ======== Z31.83 encounter for assisted reproductive fertility procedure cycle DATE OF SERVICE: 05/07/2024 us Fiona Albert MD IMG US OB ORDERABLES Fin al Result documented in this encounter Visit Diagnoses Diagnosis Encounter for assisted reproductive fertility cycle Encounter for assisted reproductive fertility procedure cycle documented in this encounter Care Teams Manager Assisted Living Relationship Specialty Start Date End Date Unknown, Provider, PCP - General 10/02/23 05/08/24 documented as of this encounter
--- OUTSIDE RECORDS SUMMARY | 2024-09-16 01:33 | XMS_ITS | Encounter Summary ---
Author Organization [facility] Address [address] [place] [address] Care Team Providers Care Floor Layer Name Role Phone Unknown, Provider Primary Care Provider Susana luo Encounter Details Date Type Department Care Team (Late st Contact Info) Description 05/03/2024 9:15 EDT Phlebotomy Only [facility] ED Center 2 Phlebotomy [address] [place], [place] [address] Backing In Machine Tender, Acc Phlebotomy Encounter for assisted reproductive fertility procedure cycle [...] Date/Time Associated Diagnosis Comments ESTRADIOL, ADULTS Routine 05/03/2024 9:1 1 EDT Encounter for assisted reproductive fertility procedure cycle documented in this encounter Results * ESTRADIOL, ADULTS (05/03/2024 9:11 EDT) Estradiol 231 See Note pg/mL 05/03/2024 10:24 EDT [facility] Comment: NOTE: FEMALE REFERENCE [...] VENOUS BLOOD / Unknown Venipuncture / Unknown 05/03/2024 9:11 EDT 05/03/2024 9:36 EDT Meliza Sena MD CHEMISTRY & BLOOD GAS ORDER SUNSHINE Final Result [facility] [address] [place] [address] documented in this encounter Visit Diagnoses Diagnosis Encounter for assisted reproductive fertility procedure cycle documented in this encounter Care Teams Floor Layer Relationship Specialty Start Date End Date Unknown, Provider, PCP - General 10/02/23 05/08/24 documented as of this encounter
--- OUTSIDE RECORDS SUMMARY | 2024-09-16 01:33 | XMS_ITS | Encounter Summary ---
Author Organization [facility] Address [address] [place] [address] Care Team Providers Care Graphite Grinder Name Role Phone None, Provider Primary Care Provider Unavailabl e Reason for Referral * BROOM STITCHER (Routine/Next Available) - Authorization Not Required Specialty Diagnoses / Procedures Referred By Contac t Referred To Contact Diagnoses Encounter for assisted reproductive fertility cycle Procedures US HEALTHCARE ACCOUNT MANAGER EXAM (BALBIR ONLY) Sue Hyman MD Phone: tel: fax: Referral ID Status Reason Start Date Expiration Date Visits Requested Visits Authorized [id number] Authorization Not Required 4 1 1 Reason for Visit * BROOM STITCHER (Routine/Next Available) - Authorization Not Required Specialty Diagnoses / Procedures Referred By Contac t Referred To Contact Diagnoses Encounter for assisted reproductive fertility cycle Procedures US HEALTHCARE ACCOUNT MANAGER EXAM (BALBIR ONLY) Sue Hyman MD Phone: tel: fax: Referral ID Status Reason Start Date Expiration Date Visits Requested Visits Authorized [id number] Authorization Not Required 4 1 1 Encounter Details Date Type Department Care Team (Latest Contact Info) Description 07/22/2024 8:40 EST - 07/22/2024 23:59 EST Hospital Encounter [facility] OBGYN Services - [facility] [address] [place], [place] [phone] Encounter for assisted reproductive fertility cycle Discharge [...] Name Priority Date/Time Associated Diagnosis Comments US HEALTHCARE ACCOUNT MANAGER EXAM (BALBIR ONLY) Routine 07/22/2024 10:07 EST Encounter for assisted reproductive fertility cycle documented in this encounter Results * US HEALTHCARE ACCOUNT MANAGER EXAM (BALBIR ONLY) (07/22/2024 10:07 EST) Anatomical Region Laterality Modality Ultrasound 07/22/2024 9:49 EST Narrative 07/29/2024 16:15 EST Indication ======== FET endometrium Uterus ====== Uterus position: ?? Anteverted Myometrium: ?Appears normal Endometrium: ?? Trilaminar endometrium Cervix details: ?Normal appearance Endometrial thickness single layer 63.0 mm Right Ovary ========= Rt ovary: ??Not examined Left Ovary ======== Lt ovary: ??Not examined Cul de Sac ========= Appears normal. No free fluid visualized Impression ========= USF (Follicular) - 45907 Endometrium 6.3 mm triple stripe Follow-up ======== with BALBIR Comment ======== Z31.83 encounter for assisted reproductive fertility procedure cycle DATE OF SERVICE: 07/22/2024 Procedure Note Meliza Sena MD - 07/29/2024 Indication ======== FET endometrium Uterus ====== Uterus position: Anteverted Myometrium: Appears normal Endometrium: Trilaminar endometrium Cervix details: Normal appearance Endometrial thickness single layer 63.0 mm Right Ovary ========= Rt ovary: Not examined Left Ovary ======== Lt ovary: Not examined Cul de Sac ========= Appears normal. No free fluid visualized Impression ========= USF (Follicular) - [id number] Endometrium 6.3 mm triple stripe Follow-up ======== with BALBIR Comment ======== Z31.83 encounter for assisted reproductive fertility procedure cycle DATE OF SERVICE: 07/22/2024 us Sue Ashlie Hyman MD [facility] OB ORDERABLES Leticia l Result documented in this encounter Visit Diagnoses Diagnosis Encounter for assisted reproductive fertility cycle Encounter for assisted reproductive fertility procedure cycle documented in this encounter Care Teams Graphite Grinder Relationship Specialty Start Date End Date None, Provider PCP - General 05/09/24 documented as of this encounter
--- OUTSIDE RECORDS SUMMARY | 2024-09-16 01:33 | XMS_ITS | Encounter Summary ---
Author Organization [facility] Address [address] [place] [address] Care Team Providers Care Director Stars Name Role Phone None, Provider Primary Care Provider Unavailabl e Encounter Details Date Type Department Care Team (Late st Contact Info) Description 05/11/2024 9:42 EDT Anesthesia Event [facility] [address], [place] [phone] Luigi Avila MD [facility] [address] [phone] Aneta Kong CRNA [address] [phone] Anesthesia Record Procedure Summary Procedure Name Responsible Anesthesiologist Anesthesia Start Time Anesthesia Stop Time IVF PROCEDURE Luigi Avila MD [facility] 05/11/24 0942 05/11/24 1008 Events Date Time Event Comment 05/11/2024 0942 An Start The patient was re-evaluated immediately before moderate or deep sedation use, before anesthesia induction, or before the anesthesia procedure. 0942 An Start Data 0949 Anesthesia Ready 1003 an stop data 1008 Handoff to RN I completed my handoff to the receiving nurse during which we: 1. Identified the patient 2. Identified the responsible provider 3. Reviewed the pertinent medical history 4. Discussed the surgical course 5. Reviewed intra-op anesthesia management and issues during anesthesia 6. Set expectations for post-procedure period 7. Allowed opportunity for questions and acknowledgement of understanding. 1008 An Stop Meds Name Total fentanyl citrate (PF) injection 25 mcg lidocaine 2% (PF) injection glass vial 6 0 mg midazolam 1 mg/mL 2 mL vial 2 mg ondansetron (PF) (ZOFRAN) injection 4 mg propOFol (DIPRIVAN) injection 209,340 mc g ketOROLAC injection 30 mg lactated ringers (LR) infusion 500 mL * Agents Name Aux O2 flow * Blood No blood administrations on file. Lines, Drains, and Airways Type Details Placement Removal Wound 10/11/23; 1236; Vagi na; hysteroscopy, polypectomy and d&c 10/11/23 1236 by Chiqui Hightower RN Peripheral IV 05/11/24; 0918; Righ t; Antecubital; Inserted by RN; 1; 05/11/24; 1037; Discharged; No complications 05/11/24 0918 by Meliza Moise RN 05/11/24 1037 by Meliza Moise RN documented in this encounter Social History Tobacco Use Types Packs/Day Years [...] 05/01/2018 13:35 EDT documented in this encounter OR Notes * Anesthesia Postprocedure Evaluation - Aneta Kong CRNA - 05/11/2024 1008 EDT Patient: Reanna Espinoza Vital signs were reviewed with the recovery nurse. [facility] Vitals Value Taken Time BP 114/78 05/11/24 1008 Temp 36.8 05/11/24 1008 Resp 16 05/11/24 1008 Pulse From Oximetry 76 05/11/24 1008 SpO2 99 05/11/24 1008 Heart Rate 76 05/11/24 1008 Last Pain Score - Type of Anesthesia - MAC Anesthesia Post Evaluation Post-procedure vitals reviewed and are stable. Level of consciousness: responsive/arousable to verbal stimuli Temperature status: normothermia and patient returned to pre-procedure baseline Respiratory status: airway patent, stable and nasal cannula Cardiovascular status: stable Hydration status: adequate Nausea/Vomiting: none Pain management: adequate Post-Op Assessment: patient tolerated procedure well with no complications Patient participation: unable to participate due to sedation Disposition: outpatient/home Anesthesia Complications: No apparent anesthesia complications * Anesthesia Preprocedure Evaluation - Aneta Kong CRNA - 05/11/2024 0711 EDT Anesthesia Preprocedure Evaluation Patient Medical History, including Anesthesia History reviewed. Chart and Nursing Notes reviewed, including NPO status and Medication History. Additional ROS/History Findings: Appropriately NPO. Denies personal or family history of problems with anesthesia. Previous anesthetics: 10/11/23- LMA 3, background propofol 2018- spinal No Known Allergies Review of Systems All other systems reviewed and are negative. Past Medical History: Diagnosis Date Activity, other involving cardiorespiratory exercise 09/30/23- no SOB with 2 FOS Exercise involving exercise classes Exercise involving housework Exercise involving jogging Exercise involving walking Retained products of conception after miscarriage 02/10/2019 Uterine polyp Relevant Problems No relevant active problems Physical Exam Airway Mallampati: III TM distance: <3 FB Neck ROM: full Cardiovascular Rhythm: regular Rate: normal Dental Pulmonary Breath sounds clear to auscultation Abdominal Anesthesia Plan ASA 1 Anesthesia Type - MAC Anesthesia plan and risks discussed. Informed consent obtained from patient. Specific risks discussed were nausea and vomiting. Code status discussed? No The preoperative history and physical which was performed within 30 days of this procedure, has been reviewed and the clinically appropriate elements of the physical examination have been repeated. There are no changes to the documented history and physical or, if so, such changes are documented inthis note PAT Note Notes from 04/11/24 through 05/11/24 No notes of this type exist for this encounter. documented in this encounter Plan of Treatment Not on file documented as of this encounter Visit Diagnoses Not on filedocumented in this encounter Administered Medications Inactive Administered Medications - up to 3 most recent administrations Medication Order MAR Action Action Date Dose Rate Site fentaNYL citrate (PF) injection intravenous, PRN, Starting on Sat05/11/24 at 0955, Until Sat05/11/24 at 1008, Routine, Anesthesia Intraprocedure Given 05/11/2024 9:55 EDT 25 mcg ketOROLAC (TORADOL) injection intravenous, PRN, Starting on Sat05/11/24 at 1000, Until Sat05/11/24 at 1008, Routine, Anesthesia Intraprocedure Given 05/11/2024 10:00 EDT 30 mg lactated ringers (LR) infusion intravenous, FA IP EQF CONTINUOUS PRN FOR ONE STEP MEDS, Starting on Sat05/11/24 at 0942, Until Sat05/11/24 at 1008, Routine, Anesthesia Intraprocedure New Bag 05/11/2024 9:42 EDT lidocaine (PF) 20 mg/mL (2 %) injection intravenous, PRN, Starting on Sat05/11/24 at 0948, Until Sat05/11/24 at 1008, Routine, Anesthesia Intraprocedure Given 05/11/2024 9:48 EDT 60 mg midazolam (PF) (VERSED) injection intravenous, PRN, Starting on Sat05/11/24 at 0944, Until Sat05/11/24 at 1008, Routine, Anesthesia Intraprocedure Given 05/11/2024 9:44 EDT 2 mg ondansetron (PF) (ZOFRAN) injection intravenous, PRN, Starting on Sat05/11/24 at 0953, Until Sat05/11/24 at 1008, Routine, Anesthesia Intraprocedure Given 05/11/2024 9:53 EDT 4 mg propOFol (DIPRIVAN) injection intravenous, PRN, Starting on Sat05/11/24 at 0948, Until Sat05/11/24 at 1008, Routine, Anesthesia Intraprocedure Given 05/11/2024 9:55 EDT 30 mg Given 05/11/2024 9:49 EDT 20 mg Given 05/11/2024 9:48 EDT 40 mg documented in this encounter Care Teams Director Stars Relationship Specialty Start Date End Date None, Provider PCP - General 05/09/24 documented as of this encounter
--- OUTSIDE RECORDS SUMMARY | 2024-09-16 01:33 | XMS_ITS | Encounter Summary ---
Author Organization [facility] Address [address] [place] [address] Care Team Providers Care High Risk Ob Name Role Phone None, Provider Primary Care Provider Unavailabl e Reason for Visit * Reason Onset Date Comments Results 05/12/2024 Encounter Details Date Type Department Care Team (Late st Contact Info) Description 05/12/2024 Telephone [facility] - [address] [phone] Fiona Albert MD [address] [place] [address], [address] [place] [phone] Results Social History Tobacco Use [...] encounter Miscellaneous Notes * Telephone Encounter - Fiona Albert MD - 05/12/2024 1147 EDT Call to review fertilization report: Day 0: Total # eggs = 10 -> ICSI MII x 9 [place] Day 1: 8 x 2PN 1 x Atretic She is feeling well and no further questions. Hoping for day 5 transfer and will try to give her aneducated guess tomorrow as she is scheduled to work a 24 hr shift (day 3). Fiona Albert MD Reproductive Endocrinology and Infertility Fellow (PGY7) [facility] documented in this encounter Plan of Treatment Not on file documented as of this encounter Visit Diagnoses Not on filedocumented in this encounter Care Teams High Risk Ob Relationship Specialty Start Date End Date None, Provider PCP - General 05/09/24 documented as of this encounter
--- OUTSIDE RECORDS SUMMARY | 2024-09-16 01:33 | XMS_ITS | Encounter Summary ---
Author Organization [facility] Address [address] [place] [address] Care Team Providers Care Maintenance Of Way Clerk Name Role Phone None, Provider Primary Care Provider Unavailabl e Encounter Details Date Type Department Care Team (Latest Contact Info) Description 05/11/2024 9:22 EDT - 05/11/2024 23:59 EDT Hospital Encounter [facility] - [facility] [address] [place] [address] Discharge Disposition: Home or Self Care Social [...] Diagnosis Comments POC IVF/BALBIR US GUIDANCE Routine 05/11/2024 9:22 EDT documented in this encounter Results * POC IVF/BALBIR US GUIDANCE (05/11/2024 9:22 EDT) Narrative 05/11/2024 9:22 EDT This is a non-reportable exam. us Laila Whitfield MD [facility] US POC ORDERABLES Fi nal Result documented in this encounter Visit Diagnoses Not on filedocumented in this encounter Care Teams Maintenance Of Way Clerk Relationship Specialty Start Date End Date None, Provider PCP - General 05/09/24 documented as of this encounter
--- OUTSIDE RECORDS SUMMARY | 2024-09-16 01:33 | XMS_ITS | Clinical Summary ---
Author Organization [facility] Address [address] [place] [address] Care Team Providers Care Resource Coordinator Name Role Phone None, Provider Primary Care Provider Unavailabl e Allergies No known active allergies Medications estradioL (ESTRACE) 1 mg tablet Take 3 Tablets by mouth 2 times daily. 150 Tablet 4 Active progesterone in oil 50 mg/mL injection Inject 1.5 mL into the muscle daily. 30 mL 1 5 Active progesterone in oil 50 mg/mL injection Inject 1.5 mL into the muscle daily. 30 mL 4 08/21/19 25 Discontinu ed(Reorder ) Hospital, Clinic, or Other Facility Administered Medication Ordered Dose Route Frequency Start Date End Date Status progesterone in oil injection 100 mg 100 mg IM DAILY 05/11/2024 Active Active Problems Patient Care Coordination No te Formatting of this note migh t be different from the original. WOMEN'S WELLNESS (MFM CONSULT ONLY) Problem Noted Date Diagnosed Date Encounter for assisted repro ductive fertility procedure cycle 07/28/2024 Encounter for assisted reproductive fertility cy yaneli 05/11/2024 Uterine polyp 07/16/2023 Encounter for test, result unknown Infertility, female, primary 05/22/2018 Nevus 04/19/2014 Resolved Problems Problem Noted Date Diagnosed Date Resolved Date Procreative management counseling 02/20/2021 06/28/2021 Female infertility, secondary 02/18/2019 03/24/2019 Retained products of concept ion after miscarriage 02/10/2019 02/18/2019 Encounter for preconception consultation 09/10/2018 02/10/2019 Trying to get 05/01/201805/22 Encounter for fertility testing 05/01/2018 05/22/2018 Encounters Date Type Department Care Team Description 08/28/2024 8:00 EST - 08/28/2024 23:59 EST Hospital Encounter [facility] OBGYN Services [facility] [address] [place] [address] resulting from assisted reproductive technology in first trimester Discharge Disposition: Home or Self Care 08/13/2024 Lab Requisition [facility] Pathology & Laboratory Medicine [facility] [address] [place] [address] Outr Resulting Lab, Provider 08/10/2024 9:30 EST Phlebotomy Only [facility] Center 2 Phlebotomy [address] [place] [address] Field Care Advocate, Acc Phlebotomy resulting from assisted reproductive technology in first trimester 08/08/2024 9:00 EST Phlebotomy Only [facility] Center 2 Phlebotomy [address] [place] [address] Field Care Advocate, Acc Phlebotomy resulting from assisted reproductive technology in first trimester 08/06/2024 8:45 EST Phlebotomy Only [facility] Center 2 Phlebotomy [address] [place] [address] Field Care Advocate, Acc Phlebotomy Encounter for assisted reproductive fertility procedure cycle 07/28/2024 9:12 EST - 07/28/2024 23:59 EST Hospital Encounter [facility] Reproductive Medicine & Infertility [address] [address] Discharge Disposition: Home or Self Care 07/28/2024 8:37 EST - 07/28/2024 9:11 EST Hospital Encounter [facility] Reproductive Medicine & Infertility [address] [address] Sue Hyman MD Encounter for assisted reproductive fertility procedure cycle [Z31.83] (Primary Dx) Discharge Disposition: Home or Self Care 07/28/2024 Orders Only [facility] Reproductive Medicine & Infertility [address] [id number] Rebecca Wilcox, MALIA Encounter for assisted reproductive fertility procedure cycle (Primary Dx) 07/24/2024 8:30 EST Nurse Only [facility] Medicine & Infertility [address] [id number] NurseBalbir MSW Encounter for assisted reproductive fertility procedure cycle (Primary Dx) 07/22/2024 8:40 EST Procedure visit [facility] Medicine & Infertility [address] [address] Meliza Sena MD Encounter for assisted reproductive fertility procedure cycle (Primary Dx) 07/22/2024 8:40 EST - 07/22/2024 23:59 EST Hospital Encounter [address] [id number] Encounter for assisted reproductive fertility cycle Discharge Disposition: Home or Self Care 07/15/2024 9:00 EST Nurse Only [facility] Medicine Infertility [address] [id number] NurseBalbir MSW Encounter for assisted reproductive fertility procedure cycle (Primary Dx) 07/07/2024 8:40 EST Procedure visit [facility] Medicine Infertility [address] [phone] Laila Whitfield MD Encounter for assisted reproductive fertility procedure cycle (Primary Dx) 07/07/2024 8:26 EST - 07/07/2024 23:59 EST Hospital Encounter [address] [phone] Encounter for assisted reproductive fertility cycle Discharge Disposition: Home or Self Care 06/17/2024 Orders Only [address] [phone] Johanne Khan RN from Last 3 Months Medical History Medical History Date Comments Retained products of concept ion after miscarriage 02/10/2019 Uterine polyp Activity, other involving ca rdiorespiratory exercise 09/30/23- no SOB with 2 FOS Exercise involving housework Exercise involving walking Exercise involving jogging Exercise involving exercise classes Family History Medical History Relation Comments High Blood Pressure Father Relation Status Comments Father Social History Tobacco Use Types Packs/Day Years Used Date Smoking Tobacco: Never Smokeless Tobacco: Never Tobacco Cessation:Counseling Given: Not Answered Alcohol Use Standard Drinks/Week Comments Yes 0 [...] 8:37 EST Sexual Orientation Not on file Obstetrics History Para Term AB IAB SAB Ectopic Multiple Livin g Live Births 3 0 0 0 2 0 2 0 0 0 0 Date Outcome GA Total Labor Labor/2nd/3rd Weight Sex Type Anes PTL Jennifer A1 A5 Name Clin 12/2018 SAB SAB 11/2020 SAB 5w0 d SAB Comments:anembryonic p regnancy following FET Last Filed Vital Signs Vital Sign Reading Time Taken Comments Blood Pressure 110/70 07/07/2024 0844 EST Pulse 72 05/11/2024 1036 EDT Temperature 36.8 ??C (98.2 ??F) 05/11/2024 1000 EDT Respiratory Rate 12 05/11/2024 1036 EDT Oxygen Saturation 100% 05/11/2024 1036 EDT Inhaled Oxygen Concentration - - Weight 65.8 kg (145 lb) 07/07/2024 0844 EST Height 160 cm (5' 3) 07/07/2024 0844 EST Body Mass Index 25.69 07/07/2024 0844 EST Plan of Treatment Health Maintenance Due Date Last Done Comments Hepatitis B Vaccine (1 of 3 - 19+ 3-dose series) 2005 COVID-19 Vaccine ( season) 2024 Hepatitis C Screen Completed 07/25/2023, 09/04/2021 Procedures Procedure Name Priority Date/Time Associated Diagnosis Comments US OB FIRST TRIMESTER (LESS THAN 14 WEEKS) TRANSVAGINAL Routine 08/28/2024 8:24 EST resulting from assisted reproductive technology in first trimester PROGESTERONE Routine 08/13/2024 13:04 EST QUANT BETA HCG, Routine 08/13/2024 PROGESTERONE Add-On 08/10/2024 10:14 EST resulting from assisted reproductive technology in first trimester QUANT BETA HCG, Routine 08/10/2024 10:14 EST resulting from assisted reproductive technology in first trimester QUANT BETA HCG, Routine 08/10/2024 QUANT BETA HCG, Routine 08/08/2024 9:06 EST resulting from assisted reproductive technology in first trimester QUANT BETA HCG, Routine 08/08/2024 QUANT BETA HCG, Routine 08/06/2024 8:47 EST Encounter for assisted reproductive fertility procedure cycle QUANT BETA HCG, Routine 08/06/2024 POC IVF/BALBIR US GUIDANCE Routine 07/28/2024 9:12 EST PROGESTERONE Routine 07/24/2024 9:10 EST Encounter for assisted reproductive fertility procedure cycle US MICROSOFT APPLICATION DEVELOPER EXAM (BALBIR ONLY) Routine 07/22/2024 10:07 EST Encounter for assisted reproductive fertility cycle ESTRADIOL, ADULTS Routine 07/15/2024 8:5 6 EST Encounter for assisted reproductive fertility procedure cycle ESTRADIOL, ADULTS Routine 07/07/2024 9:0 6 EST Encounter for assisted reproductive fertility procedure cycle PROGESTERONE Routine 07/07/2024 9:06 EST Encounter for assisted reproductive fertility procedure cycle US BASELINE INVITRO Routine 07/07/2024 8 :28 EST Encounter for assisted reproductive fertility cycle HEPATITIS C AB W REFLEX TO HCV RNA BY PCR Routine 07/25/2023 15:50 EST from Last 3 Months or Most Recently Relevant to Health Maintenance Results * US OB FIRST TRIMESTER (LESS THAN 14 WEEKS) TRANSVAGINAL (08/28/2024 8:24 EST) Anatomical Region Laterality Modality Pelvis Ultrasound 08/28/2024 8:27 EST Narrative 08/28/2024 10:22 EST Indication ======== jennifer Assessment History ====== General History Height 160 cm Height (ft) ?5 ft Height (in) ?3 in Previous Outcomes ?3 Para ?? 0 Pregnancies delivered at term (T) ??0 Pregnancies delivered (P) ??0 Abortions (A) ??2 Living children (L) ?0 Maternal Assessment Height 160 cm Height (ft) ?5 ft Height (in) ?3 in ========= Number of embryos: 1 Dating ====== Conception: ?Invitro fertilization Method of dating: ??based on the IVF / ET date Embryo transfer on: ?07/28/2024 IVF / ET ?? 5 d GA by IVF / ET 7 w + 1 d KYLAH by IVF / ET: ?? 04/15/2025 Ultrasound examination on: 08/28/2024 GA by U/S based upon: ??CRL GA by U/S ??7 w + 0 d KYLAH by U/S: ?04/16/2025 Assigned: ??based on the IVF / ET date, selected on 08/28/2024 Assigned GA ?7 w + 1 d Assigned KYLAH: ??04/15/2025 Assessment Gestational sac: ?? Visualized Location: ??Intrauterine Yolk sac: ??Visualized YS 2.8 mm ?? <1% Grisolia Amniotic sac: ??Visualized Embryo: ?Visualized CRL ?9.6 mm ??7w 0d 64% Hadlock Cardiac activity: ??Present FHR ?177 bpm Maternal Structures Uterus / Cervix Uterus details: ?No abnormalities detected. Appears normal Cervix: ?Appears normal Ovaries / Tubes / Adnexa Rt ovary D1 ?34.8 mm Rt ovary D2 ?28.0 mm Rt ovary D3 ?18.4 mm Rt ovary Vol ?? 9.4 cm cubed Lt ovary D1 ?23.6 mm Lt ovary D2 ?17.5 mm Lt ovary D3 ?18.0 mm Lt ovary Vol ?? 3.9 cm cubed Cul de Sac / Bladder / Kidneys / Other Free fluid: ?No free fluid visualized Method ====== Transvaginal ultrasound examination Impression ========= 1st Trimester OB scan ,transvaginal +[id number] Single viable intrauterine (IUP), size equals IVF transfer date. Follow-up ======== Will schedule follow-up with OBGYN and taper estradiol. Continue progesterone in oil until 10 wga. Comment ======== Results discussed w/patient DATE OF SERVICE: 08/28/2024 Procedure Note Laila Whitfield MD - 08/28/2024 Indication ======== jennifer Assessment History ====== General History Height 160 cm Height (ft) 5 ft Height (in) 3 in Previous Outcomes 3 Para 0 Pregnancies delivered at term (T) 0 Pregnancies delivered (P) 0 Abortions (A) 2 Living children (L) 0 Maternal Assessment Height 160 cm Height (ft) 5 ft Height (in) 3 in ========= Number of embryos: 1 Dating ====== Conception: Invitro fertilization Method of dating: based on the IVF / ET date Embryo transfer on: 07/28/2024 IVF / ET 5 d GA by IVF / ET 7 w + 1 d KYLAH by IVF / ET: 04/15/2025 Ultrasound examination on: 08/28/2024 GA by U/S based upon: CRL GA by U/S 7 w + 0 d KYLAH by U/S: 04/16/2025 Assigned: based on the IVF / ET date, selected on 08/28/2024 Assigned GA 7 w + 1 d Assigned KYLAH: 04/15/2025 Assessment Gestational sac: Visualized Location: Intrauterine Yolk sac: Visualized YS 2.8 mm <1% Grisolia Amniotic sac: Visualized Embryo: Visualized CRL 9.6 mm 7w 0d 64% Hadlock Cardiac activity: Present FHR 177 bpm Maternal Structures Uterus / Cervix Uterus details: No abnormalities detected. Appears normal Cervix: Appears normal Ovaries / Tubes / Adnexa Rt ovary D1 34.8 mm Rt ovary D2 28.0 mm Rt ovary D3 18.4 mm Rt ovary Vol 9.4 cm cubed Lt ovary D1 23.6 mm Lt ovary D2 17.5 mm Lt ovary D3 18.0 mm Lt ovary Vol 3.9 cm cubed Cul de Sac / Bladder / Kidneys / Other Free fluid: No free fluid visualized Method ====== Transvaginal ultrasound examination Impression ========= 1st Trimester OB scan ,transvaginal +69219 Single viable intrauterine (IUP), size equals IVF transferdate. Follow-up ======== Will schedule follow-up with OBGYN and taper estradiol. Continueprogesterone in oil until 10 wga. Comment ======== Results discussed w/patient DATE OF SERVICE: 08/28/2024 Fiona Albert MD [facility] OB ORDERABLES Fin al Result * PROGESTERONE (08/13/2024 13:04 EST) Only the most recent of4 resultswithin the time period is included. Progesterone 33.8 See Table ng/mL 08/13/2024 22:23 EST [facility] Comment: Female Reference Ranges: PHYSIOLOGICAL [...] & BLOOD GA S ORDERABLES Final Result Performing Organization Address City/[facility] Co de Phone Number [facility] [address] [place] [address] * (ABNORMAL) QUANT BETA HCG, (08/13/2024) Only the most recent of7 resultswithin the time period is included. HCG, External 741 mIU/mL [facility] POINT OF CARE Blood VENOUS BLOOD / Unknown 08/13/2024 Historical Provider CHEMISTRY & BLOOD GAS ORD ERABLES Final Result Performing Organization Address City/[facility]/ZIP Co de Phone Number [facility] POINT OF CARE * POC IVF/BALBIR US GUIDANCE (07/28/2024 9:12 EST) Narrative 07/28/2024 9:12 EST This is a non-reportable exam. us Fiona Albert MD IMG US POC ORDERABLES Fi nal Result * US MICROSOFT APPLICATION DEVELOPER EXAM (BALBIR ONLY) (07/22/2024 10:07 EST) Anatomical [...] fluid visualized Impression ========= USF (Follicular) - 34251 Endometrium 6.3 mm triple stripe Follow-up ======== [...] fluid visualized Impression ========= USF (Follicular) - 04497 Endometrium 6.3 mm triple stripe Follow-up ======== with BALBIR Comment ======== Z31.83 encounter for assisted reproductive fertility procedure cycle DATE OF SERVICE: 07/22/2024 us Sue Hyman MD IMG US OB ORDERABLES Leticia l Result * ESTRADIOL, ADULTS (07/15/2024 8:56 EST) Only the most recent of2 resultswithin the time period is included. Estradiol 187 See Note pg/mL 07/15/2024 10:22 EST [facility] Comment: NOTE: FEMALE REFERENCE RANGES: [...] & BLOOD GAS OR DERABLES Final Result [facility] [address] [place] [id number] * US BASELINE INVITRO (07/07/2024 8:28 EST) [...] Sac ========= Normal Impression ========= Baseline - 93110 1. Anteverted uterus with thin endometrium, small [...] Sac ========= Normal Impression ========= Baseline - 25039 1. Anteverted uterus with thin endometrium, small stable anteriorfibroid 2. Quiescent ovaries with small hemorrhagic cyst on the right 3. No significant free fluid Follow-up ======== Labs today, plan per BALBIR Team Comment ======== Ultrasound findings discussed w/patient. Z31.83 encounter for assisted reproductive fertility procedure cycle DATE OF SERVICE: 07/07/2024 Sue Hyman MD [facility] US OB ORDERABLES Leticai l Result * HEPATITIS C AB W REFLEX TO HCV RNA BY PCR (07/25/2023 15:50 EST) Hep C Antibody Negative Negative 07/26/2023 10:16 EST [facility] Blood VENOUS BLOOD / Unknown 07/25/2023 15:50 EST 07/25/2023 22:04 EST Provider Outr Resulting Lab CHEMISTRY & BLOOD GA S ORDERABLES Final Result [facility] [address] [place] [address] from Last 3 Months or Most Recently Relevant to Health Maintenance Insurance [facility] Advance Directives For more information, please contact: [phone] * Full Code (Latest Code Status on File) Date Activated Date Inactivated Comments 10/11/2023 9:40 10/11/2023 15:56 Question Answer Comments When the patient has NO PULSE: Full Code / CPR Who Made the Decision? Default/Not Discussed Care Teams Resource Coordinator Relationship Specialty Start Date End Date None, Provider PCP - General 05/09/24
--- OUTSIDE RECORDS SUMMARY | 2024-09-16 01:33 | XMS_ITS | Encounter Summary ---
Author Organization [facility] Address [address] [place] [address] Care Team Providers Care Yard Switcher Name Role Phone None, Provider Primary Care Provider Unavailabl e Encounter Details Date Type Department Care Team (Late st Contact Info) Description 05/11/2024 8:42 EDT - 05/11/2024 9:[address] [facility] Reproductive Medicine & Infertility Center - [address] [phone] Laila Whitfield MD [address] [facility] [address] [place] [phone] Luigi Avila MD [facility] [address] [facility] [address] [place] [phone] Encounter for assisted reproductive fertility cycle [Z31.83] (Primary Dx) Discharge Disposition: Home [...] Sign Reading Time Taken Comments Blood Pressure 112/83 05/11/2024 1036 EDT Pulse 72 05/11/2024 1036 EDT Temperature 36.8 ??C (98.2 ??F) 05/11/2024 1000 EDT Respiratory Rate 12 05/11/2024 1036 EDT Oxygen Saturation 100% 05/11/2024 1036 EDT Inhaled Oxygen Concentration - - Weight - - Height - - Body Mass Index - - documented in this encounter Functional Status * [...] documented in this encounter Procedure Notes * Laila Whitfield MD - 05/11/2024 0930 EDTProcedure(s): FOLLICLE PUNCTURE, RETRIEVAL OF OOCYTE Pre-Procedure Diagnose(s): Female infertility Post-Procedure Diagnose(s): Female infertility IVF OOCYTE RETRIEVAL PROCEDURE NOTE Reanna Espinoza 1985 Procedure: Ultrasound-guided oocyte retrieval with a single lumen catheter Anesthesia: MAC Attending: Dr. Whitfield Heel Blacker: Dr. Albert Antibiotics: Ancef 2 g IV EBL: 10 cc Urine output: patient spontaneous voided prior to the start of the procedure Ultrasound Visualization Transvaginal: good Findings: 1. Enlarged ovaries bilaterally consistent with hormone stimulation 2. Oocytes retrieved: 10 total 3. Endometrium: 11 mm, trilaminar 4. Free Fluid: mild Procedure Details: Informed consent was obtained. An IV was placed by the nursing team and the patient was walked backto the procedure suite with IV fluids running. The patient was placed in the dorsal supine lithotomy position. A time out verification procedure was performed with all members of the procedural, anest hesiology, embryology, and nursing teams present. MAC anesthesia was obtained to an adequate comfort. The patient was then prepped and draped in a usual sterile fashion. A bivalve speculum was placedin the vagina and the cervix was cleansed with sterile saline. The transvaginal ultrasound probe was then placed into the vagina and the stimulated ovaries were visualized. Using a single lumen cathet er the ovarian follicles were sequentially drained and carried to the embryology lab. Flushes of culture media throughout the procedure as well as at the end of the procedure were performed to ensurecollection of all the oocytes. Once all of the follicles were drained, the ultrasound was left in place to allow additional time to assess the cul de sac and there was a moderate amount of simple fluid without active accumulation. The patient then awoke from sedation without issue and was transferred to the recovery area in stable and satisfactory condition. Condition: stable Disposition: IVF Recovery Room Complications: None Attending Dr. Whitfield was present and scrubbed for the entirety of the procedure. Megan Albert MD Fellow, Reproductive Endocrinology and Infertility [facility] 05/11/2024 / 10:10 I was present for the entire procedure and performed critical and raymundo portions of the procedure. Laila Whitfield MD documented in this encounter Miscellaneous Notes * Addendum Note - Meliza Moise RN - 05/11/2024920 EDTEncounter addended by: Meliza Moise RN on: 05/18/2024 8:24 Actions taken: Charge Capture section accepted * Addendum Note - Miya Leone - 05/11/2024920 EDTEncounter addended by: Miya Leone on: 05/19/2024 8:12 Actions taken: Charge Capture section accepted documented in this encounter Plan of Treatment Not on file documented as of this encounter Procedures Procedure Name Priority Date/Time Associated Diagnosis Comments POC IVF/BALBIR US GUIDANCE Routine 05/11/2024 9:22 EDT documented in this encounter Results * POC IVF/BALBIR US GUIDANCE (05/11/2024 9:22 EDT) Narrative 05/11/2024 9:22 EDT This is a non-reportable exam. us Laila Whitfield MD [facility] US POC ORDERABLES Fi nal Result documented in this encounter Visit Diagnoses Diagnosis Encounter for assisted reproductive fertility cycle [Z31.83]- Primary Encounter for assisted reproductive fertility procedure cycle documented in this encounter Administered Medications Active Administered Medications - up to 3 most recent administrations Medication Order MAR Action Action Date Dose Rate Site progesterone in oil injection 100 mg 100 mg, intramuscular, DAILY, First dose on Sat05/11/24 at 1030, Until Discontinued, Routine Given 05/11/2024 10:11 EDT 100 mg Inactive Administered Medications - up to 3 most recent administrations Medication Order MAR Action Action Date Dose Rate Site ceFAZolin in dextrose (iso-os) piggyback 2 g/100 mL 2,000 mg, intravenous, Administer over 30 Minutes, Once (Time Specified), 1 dose, On Sat05/11/24 at 0900, Type of Therapy: Prophylaxis, Suspected Indication (Select all that apply): Surgical prophylaxis, ID Consult: No, Routine Given 05/11/2024 9:43 EDT 2,000 mg IV documented in this encounter Care Teams Yard Switcher Relationship Specialty Start Date End Date None, Provider PCP - General 05/09/24 documented as of this encounter
--- OUTSIDE RECORDS SUMMARY | 2024-09-16 01:33 | XMS_ITS | Encounter Summary ---
Author Organization [facility] Address [address] [place] [address] Care Team Providers Care Olericulture Professor Name Role Phone None, Provider Primary Care Provider Unavailabl e Encounter Details Date Type Department Care Team (Latest Contact Info) Description 07/28/2024 9:12 EST - 07/28/2024 23:59 EST Hospital Encounter [facility] Reproductive Medicine & Infertility Center - [facility] [address] [place] [address] Discharge Disposition: Home or Self [...] 9:12 EST This is a non-reportable exam. Fiona Albert MD IMG US POC ORDERABLES Fi nal Result documented in this encounter Visit Diagnoses Not on filedocumented in this encounter Care Teams Olericulture Professor Relationship Specialty Start Date End Date None, Provider PCP - General 05/09/24 documented as of this encounter
--- OUTSIDE RECORDS SUMMARY | 2024-09-16 01:33 | XMS_ITS | Encounter Summary ---
Author Organization [facility] Address [address] [place] [address] Care Team Providers Care Forensic Structural Engineer Name Role Phone Unknown, Provider Primary Care Provider Susana luo Encounter Details Date Type Department Care Team (Late st Contact Info) Description 05/03/2024 Documentation Visit [facility] Reproductive Medicine & Infertility Center - [facility] [address] [place], [place] [phone] Comfort Hall MD [address] [place] [phone] Social History Tobacco Use Types Packs/Day Years [...] documented in this encounter Progress Notes * Comfort Hall MD - 05/03/2024 1212 EDT IVF Plan Note Cycle type: Antagonist Med day 4 Patient's labs, and IVF plan reviewed with Dr. Hyman. 04/30/2024 05/03/2024 IVF FLOWSHEET (USE FORM) Checklist: Cycle Type Antagon Checklist: Cycle Number 3 Checklist: Plan -- Medications: RX Day Baseline 4 Medications: RX Date 04/30/2024 05/03/2024 Medications: Use RX HMG Start 1 Medications: Use RX FSH 4 Labs: E2 51 231 Labs: P4 0.2 Uterus: Endometrial Thickness 3 [...] 20 Left Ovary: Follicle <10MM #2 7 Contacted the patient with the following plan: Continue FSH 300 units, hMG 75 units Repeat labs in 2 days on 05/05 Comfort Hall MD Reproductive Endocrinology & Infertility [facility] 05/03/2024 / 12:12 documented in this encounter Plan of Treatment Not on file documented as of this encounter Visit Diagnoses Not on filedocumented in this encounter Care Teams Forensic Structural Engineer Relationship Specialty Start Date End Date Unknown, Provider, PCP - General 10/02/23 05/08/24 documented as of this encounter
--- OUTSIDE RECORDS SUMMARY | 2024-09-16 01:33 | XMS_ITS | Encounter Summary ---
Author Organization [facility] Address [address] [place] [address] Care Team Providers Care Pulmonary Function Technician Name Role Phone None, Provider Primary Care Provider Unavailabl e Encounter Details Date Type Department Care Team (Late st Contact Info) Description 06/17/2024 Orders Only [facility] Reproductive Medicine & Infertility Center - [facility] [address] [place] [address] Johanne Khan, MALIA [address] [place] [address] Social History Tobacco Use Types Packs/Day Years [...] 05/01/2018 13:35 EDT documented in this encounter Ordered Prescriptions Prescription Sig Dispense Quantity Refills Last Filled Start Date End Date progesterone in oil 50 mg/mL injection Inject 1.5 mL into the muscle daily. 30 mL 06/17/2024 5 estradioL (ESTRACE) 1 mg tablet Take 3 Tablets by mouth 2 times daily. 200 Tablet 06/17/2024 4 leuprolide (LUPRON) 1 mg/0.2 mL injection Inject 20 units into the skin daily. Decrease to 10 units when directed. 2 Each 06/17/2024 4 documented in this encounter Plan of Treatment Not on file documented as of this encounter Visit Diagnoses Not on filedocumented in this encounter Discontinued Medications Medication Sig Discontinue Reason Start Date End Da te progesterone in oil 50 mg/mL injection Inject 1 mL into the muscle daily. 04/14/2024 06/17/2024 documented as of this encounter Care Teams Pulmonary Function Technician Relationship Specialty Start Date End Date None, Provider PCP - General 05/09/24 documented as of this encounter
--- OUTSIDE RECORDS SUMMARY | 2024-09-16 01:33 | XMS_ITS | Encounter Summary ---
Author Organization [facility] Address [address] [place] [address] Care Team Providers Care Bottling Machine Operator Name Role Phone None, Provider Primary Care Provider Unavailabl e Reason for Visit * Reason Comments Procedure FET monitoring Encounter Details Date Type Department Care Team (Late st Contact Info) Description 07/22/2024 8:40 EST Procedure visit [facility]ductive Medicine [facility] Infertility Center [address] [phone] Meliza Sena MD [address] [facility], [address] [place] [address] Encounter for assisted reproductive fertility [...] Progress Notes * Fiona Albert MD - 07/22/2024 0840 EST Monitoring in [facility]. * Meliza Sena MD - 07/22/2024 0840 EST Attestation statement: I discussed the patient with the resident/fellow at the time of the visit. Iagree with the findings and the plan of care documented in the resident's/fellow's note. documented in this encounter Plan of Treatment Not on file documented as of this encounter Visit Diagnoses Diagnosis Encounter for assisted reproductive fertility procedure cycle- Primary documented in this encounter Care Teams Bottling Machine Operator Relationship Specialty Start Date End Date None, Provider PCP - General 05/09/24 documented as of this encounter
--- OUTSIDE RECORDS SUMMARY | 2024-09-16 01:33 | XMS_ITS | Referral Summary ---
Author Organization [facility] Address [address] [place] [address] Care Team Providers Care Facility Technician Name Role Phone None, Provider Primary Care Provider Unavailabl e Encounters Date Type Department Care Team Description 08/28/2024 8:00 EST - 08/28/2024 23:59 EST Hospital Encounter [facility] OBGYN Services - [facility] [address] [place] [address] resulting from assisted reproductive technology in first trimester Discharge Disposition: Home or Self Care 08/13/2024 Lab Requisition [facility] Pathology & Laboratory Medicine [facility] [address] [place] [address] Outr Resulting Lab, Provider 08/10/2024 9:30 EST Phlebotomy Only [facility] Center 2 Phlebotomy [address] [place] [address] Customer Advisor Specialist, Acc Phlebotomy resulting from assisted reproductive technology in first trimester 08/08/2024 9:00 EST Phlebotomy Only [facility] Center 2 Phlebotomy [address] [place] [address] Customer Advisor Specialist, Acc Phlebotomy resulting from assisted reproductive technology in first trimester 08/06/2024 8:45 EST Phlebotomy Only [facility] Center 2 Phlebotomy [address] [place] [address] Customer Advisor Specialist, Acc Phlebotomy Encounter for assisted reproductive fertility procedure cycle 07/28/2024 Orders Only [facility] Reproductive Medicine & Infertility Center [facility] [address] [place], [place] [address] Rebecca Wilcox RN Encounter for assisted reproductive fertility procedure cycle (Primary Dx) 07/28/2024 9:12 EST - 07/28/2024 23:59 EST Hospital Encounter [facility] Reproductive Medicine & Infertility [address] [address] Discharge Disposition: Home or Self Care 07/28/2024 8:37 EST - 07/28/2024 9:11 EST Hospital Encounter [facility] Reproductive Medicine & Infertility [address] [phone] Sue Hyman MD Encounter for assisted reproductive fertility procedure cycle [Z31.83] (Primary Dx) Discharge Disposition: Home or Self Care 07/24/2024 8:30 EST Nurse Only [facility] Reproductive Medicine & Infertility [address] [address] NurseBalbir MSW Encounter for assisted reproductive fertility procedure cycle (Primary Dx) 07/22/2024 8:40 EST Procedure visit [facility] Reproductive Medicine & Infertility [address] [address] Meliza Sena MD Encounter for assisted reproductive fertility procedure cycle (Primary Dx) 07/22/2024 8:40 EST - 07/22/2024 23:59 EST Hospital Encounter [facility] [address] [address] Encounter for assisted reproductive fertility cycle Discharge Disposition: Home or Self Care 07/15/2024 9:00 EST Nurse Only [facility] Reproductive Medicine & Infertility [address] [phone] Balbir Javier MSW Encounter for assisted reproductive fertility procedure cycle (Primary Dx) 07/07/2024 8:40 EST Procedure visit [facility] Reproductive Medicine & Infertility [address] [address] Laila Whitfield MD Encounter for assisted reproductive fertility procedure cycle (Primary Dx) 07/07/2024 8:26 EST - 07/07/2024 23:59 EST Hospital Encounter [facility] OBGYN Services - [address] [address] Encounter for assisted reproductive fertility cycle Discharge Disposition: Home or Self Care 06/17/2024 Orders Only [facility] Medicine [facility] [address] [address] Johanne Khan RN from Last 3 Months Allergies No known active allergies Medications estradioL [...] 05/01/201805/22 Encounter for fertility testing 05/01/2018 05/22/2018 Social History Tobacco Use Types Packs/Day Years [...] 8:37 EST Sexual Orientation Not on file Last Filed Vital Signs Vital Sign Reading [...] Body Mass Index 25.69 07/07/2024 0844 EST Functional Status * Because of a physical, mental, or emotional condition, does this person have difficulty doing errands alone such as visiting a doctor's office or shopping? Answer Date of Assessment Author No 05/01/2018 13:35 EDT Mental Status * Because of a physical, mental, or emotional condition, does this person have serious difficulty concentrating, remembering, or making decisions? Answer Entry Date Author No 05/01/2018 13:35 EDT Plan of Treatment Not on file Procedures Procedure Name Priority Date/Time Associated Diagnosis [...] for assisted reproductive fertility procedure cycle US SIMULATION TECH EXAM (BAL[facility] ONLY) Routine 07/22/2024 10:07 EST [...] Impression ========= 1st Trimester OB scan ,transvaginal +83611 Single viable intrauterine (IUP), size equals IVF [...] Impression ========= 1st Trimester OB scan ,transvaginal +18186 Single viable intrauterine (IUP), size equals IVF transferdate. Follow-up ======== Will schedule follow-up with OBGYN and taper estradiol. Continueprogesterone in oil until 10 wga. Comment ======== Results discussed w/patient DATE OF SERVICE: 08/28/2024 Fiona Albert MD [facility] OB ORDERABLES Fin al Result * PROGESTERONE (08/13/2024 13:04 EST) Only the most recent of4 resultswithin the time period is included. Progesterone 33.8 See Table ng/mL 08/13/2024 22:23 EST [facility] Comment: Female Reference [...] Unknown 08/13/2024 13:04 EST 08/13/2024 21:44 EST Provider Outr Resulting Lab CHEMISTRY & BLOOD GA S ORDERABLES Final Result [facility] [address] [place] [address] * (ABNORMAL) QUANT BETA HCG, (08/13/2024) Only the most recent of7 resultswithin the time period is included. HCG, External 741 mIU/mL [facility] Blood VENOUS BLOOD / Unknown 08/13/2024 Historical Provider MD CHEMISTRY & BLOOD GAS ORD ERABLES Final Result [facility] * POC IVF/BALBIR US GUIDANCE (07/28/2024 9:12 EST) Narrative 07/28/2024 9:12 EST This is a non-reportable exam. Fiona Albert MD IMG US POC ORDERABLES Fi nal Result * US SIMULATION TECH EXAM ([facility] ONLY) (07/22/2024 10:07 EST) Anatomical [...] fluid visualized Impression ========= USF (Follicular) - 48466 Endometrium 6.3 mm triple stripe Follow-up ======== [...] fluid visualized Impression ========= USF (Follicular) - 09169 Endometrium 6.3 mm triple stripe Follow-up ======== with [facility] Comment ======== Z31.83 encounter for assisted reproductive fertility procedure cycle DATE OF SERVICE: 07/22/2024 us Sue Hyman MD [facility] US OB ORDERABLES Leticia l Result * ESTRADIOL, ADULTS (07/15/2024 8:56 EST) Only the most recent of2 resultswithin the time period is included. Estradiol 187 See Note pg/mL 07/15/2024 10:22 EST [facility] Comment: NOTE: FEMALE [...] & BLOOD GAS OR DERABLES Final Result [facility] [address] [place] [address] * US BASELINE INVITRO (07/07/2024 8:28 EST) [...] Sac ========= Normal Impression ========= Baseline - 59851 1. Anteverted uterus with thin endometrium, small [...] Sac ========= Normal Impression ========= Baseline - 57953 1. Anteverted uterus with thin endometrium, small stable anteriorfibroid 2. Quiescent ovaries with small hemorrhagic cyst on the right 3. No significant free fluid Follow-up ======== Labs today, plan per [facility] Team Comment ======== Ultrasound findings discussed w/patient. Z31.83 encounter for assisted reproductive fertility procedure cycle DATE OF SERVICE: 07/07/2024 us Sue Hyman MD [facility] OB ORDERABLES Leticia l Result * HEPATITIS C AB W REFLEX TO HCV RNA BY PCR (07/25/2023 15:50 EST) Hep C Antibody Negative Negative 07/26/2023 10:16 EST [facility] Blood VENOUS BLOOD / Unknown 07/25/2023 15:50 EST 07/25/2023 22:04 EST us Provider Outr Resulting Lab CHEMISTRY & BLOOD GA S ORDERABLES Final Result [facility] [address] [place] [address] from Last 3 Months or Most Recently Relevant to Health Maintenance Insurance [facility] Advance Directives For more information, please contact: [phone] * Full Code (Latest Code Status on File) Date Activated Date Inactivated Comments 10/11/2023 9:40 10/11/2023 15:56 Question Answer Comments When the patient has NO PULSE: Full Code / CPR Who Made the Decision? Default/Not Discussed Care Teams Facility Technician Relationship Specialty Start Date End Date None, Provider PCP - General 05/09/24
--- OUTSIDE RECORDS SUMMARY | 2024-09-16 01:33 | XMS_ITS | Encounter Summary ---
Author Organization [facility] Address [address] [place] [address] Care Team Providers Care Supervisor Mending Name Role Phone None, Provider Primary Care Provider Unavailabl e Reason for Visit * Reason Onset Date Comments Results 05/14/2024 Encounter Details Date Type Department Care Team (Late st Contact Info) Description 05/14/2024 Telephone [facility] Reproductive Medicine & Infertility Center - [address] [phone] Cori Delgado MD [address] [facility], [address] [place] [address] Results Social History Tobacco Use [...] Telephone Encounter - Cori Delgado MD - 05/14/2024 1005 EDT MD note I spoke with Reanna about the decision of whether to do a D3 transfer today or whether to push to D5. We reviewed her embryo development and the benefits and risks of both. She understands that we would do a double embryo transfer today, and if she waits until D5, there is a small but real risk ofnot having any embryos to transfer. She understands this risk. She does not want a D3 transfer as she has never had a good outcome with a D3 transfer. She prefers to wait until D5. Emotional support provided. All questions answered. Cori Delgado MD [facility] Attending documented in this encounter Plan of Treatment Not on file documented as of this encounter Visit Diagnoses Not on filedocumented in this encounter Care Teams Supervisor Mending Relationship Specialty Start Date End Date None, Provider PCP - General 05/09/24 documented as of this encounter
--- OUTSIDE RECORDS SUMMARY | 2024-09-16 01:33 | XMS_ITS | Encounter Summary ---
Author Organization [facility] Address [address] [place] [address] Care Team Providers Care Garbage Collector Supervisor Name Role Phone None, Provider Primary Care Provider Unavailabl e Reason for Visit * Reason Onset Date Comments Results 05/17/2024 Encounter Details Date Type Department Care Team (Late st Contact Info) Description 05/17/2024 Telephone [facility] Reproductive Medicine & Infertility Center - [address] [phone] Fiona Albert MD [address] [place] [address], [address] [place] [address] Results Social History Tobacco Use [...] Telephone Encounter - Fiona Albert MD - 05/17/2024 1203 EDT Call to [facility] to review day 6 embryology: DIMAS G: Day 0: Total # eggs = 10 -> ICSI MII x 9 NC Day 1: 8 x 2PN 1 x Atretic Day 3: 8B+ x 2 9B 8B 6B 5B- x 2 2B- All embryos will continue culture to Day 5 for planned ET and PGT-A of any remaining blastocyst. Day 5: 2BB 5x Cav. M. 2x cellular Embryos will be cultured to Day 6. Day 6: 5 embryos biopsied and vitrified in 5 straws: Straw #1: 3AB Straw #2: 4BA Straw #3: 3AA Straw #4: 3AA Straw #5: 4BB mariam free She was very happy to hear that there were blasts to biopsy today. Will plan to reach out with her menses so we can plan for FET; discussed moving ahead with preparation while awaiting genetic results but will decide if reasonable timeline once we know menses start/baseline timing. Fiona Albert MD Reproductive Endocrinology and Infertility Fellow (PGY7) [facility] documented in this encounter Plan of Treatment Not on file documented as of this encounter Visit Diagnoses Not on filedocumented in this encounter Care Teams Garbage Collector Supervisor Relationship Specialty Start Date End Date None, Provider PCP - General 05/09/24 documented as of this encounter
--- OUTSIDE RECORDS SUMMARY | 2024-09-16 01:33 | XMS_ITS | Encounter Summary ---
Author Organization [facility] Address [address] [place] [address] Care Team Providers Care Nurse'S Aides Teacher Name Role Phone None, Provider Primary Care Provider Unavailabl e Reason for Referral * GRIEF COUNSELLOR (Routine/Next Available) - Authorization Not Required Specialty Diagnoses / Procedures Referred By Contac t Referred To Contact Diagnoses resulting from assisted reproductive technology in first trimester Procedures OB FIRST TRIMESTER (LESS THAN 14 WEEKS) TRANSVAGINAL Fiona Albert MD [address] [place] [phone] Phone: tel: fax: [facility] MANAGER FILE/[facility] Referral ID Status Reason Start Date Expiration Date Visits Requested Visits Authorized [id number] Authorization Not Required 4 1 1 Reason for Visit * GRIEF COUNSELLOR (Routine/Next Available) - Authorization Not Required Specialty Diagnoses / Procedures Referred By Contac t Referred To Contact Diagnoses resulting from assisted reproductive technology in first trimester Procedures OB FIRST TRIMESTER (LESS THAN 14 WEEKS) MARYVAGINAL Fiona Albert MD [address] [place] [phone] Phone: tel: fax: [facility] MANAGER FILE/[facility] Referral ID Status Reason Start Date Expiration Date Visits Requested Visits Authorized [id number] Authorization Not Required 4 1 1 Encounter Details Date Type Department Care Team (Latest Contact Info) Description 08/28/2024 8:00 EST - 08/28/2024 23:59 EST Hospital Encounter [facility] OBGYN Services - [address] [address] resulting from assisted reproductive technology in first trimester Discharge Disposition: Home or Self Care Social [...] this encounter Medications at Time of Discharge estradioL (ESTRACE) 1 mg tablet Take 3 Tablets by mouth 2 times daily. 150 Tablet 08/11/2024 progesterone in oil 50 mg/mL injection Inject 1.5 mL into the muscle daily. 30 mL 1 08/21/2024 documented as of this encounter Discharge Disposition Disposition Code Departure Means Destination Home or Self Care documented in this encounter Progress Notes * Comfort Hall MD - 08/28/2024 0800 EST IVF OB#1 US Counseling Note: Discussed with the patient the following: -The patient's GA is 7 weeks and 1 days with an KYLAH of 04/15/25 based on day 5 FET on 07/28 which correlated with today's scan. -Continue PNV, all other medications reviewed. -Continue P4 in oil until 10 weeks gestation -Plan to taper estradiol. Advised to cut the dose of her estradiol patches and tablets in half until complete which will take about 10-14 days. -Discussed with the patient establishing care with an OB, recommendations given. -Advised to call with bleeding, pain or concerns. -The patient has cryopreserved 2 untested embryos (2021 cycle) and 2 euploid embryos from recent cycle. We discussed the storage fees and advised the patient to inform us of a change in her address oni to avoid embryos being discarded if we are unable to locate her. The patient was discussed with Dr. Whitfield. Comfort Hall MD Reproductive Endocrinology and Infertility Fellow (PGY5) [facility] 08/28/2024 documented in this encounter Plan of Treatment Not on file documented as of this encounter Procedures Procedure Name Priority Date/Time Associated Diagnosis Comments US OB FIRST TRIMESTER (LESS THAN 14 WEEKS) TRANSVAGINAL Routine 08/28/2024 8:24 EST resulting from assisted reproductive technology in first trimester documented in this encounter Results * US OB FIRST TRIMESTER (LESS [...] Impression ========= 1st Trimester OB scan ,transvaginal +40141 Single viable intrauterine (IUP), size equals IVF [...] Impression ========= 1st Trimester OB scan ,transvaginal +88394 Single viable intrauterine (IUP), size equals IVF transferdate. Follow-up ======== Will schedule follow-up with OBGYN and taper estradiol. Continueprogesterone in oil until 10 wga. Comment ======== Results discussed w/patient DATE OF SERVICE: 08/28/2024 Fiona Albert MD [facility] OB ORDERABLES Fin al Result documented in this encounter Visit Diagnoses Diagnosis resulting from assisted reproductive technology in first trimester documented in this encounter Care Teams Nurse'S Aides Teacher Relationship Specialty Start Date End Date None, Provider PCP - General 05/09/24 documented as of this encounter
--- OUTSIDE RECORDS SUMMARY | 2024-09-16 01:33 | XMS_ITS | Encounter Summary ---
Author Organization [facility] Address [address] [place] [address] Care Team Providers Care Pattern Mechanic Name Role Phone None, Provider Primary Care Provider Unavailabl e Encounter Details Date Type Department Care Team (Late st Contact Info) Description 08/06/2024 8:45 EST Phlebotomy Only [facility] ED Center 2 Phlebotomy [address] [place], [place] [id number] Dry Heat Cabinet Attendant, [facility] Phlebotomy Encounter for assisted reproductive fertility procedure [...] Associated Diagnosis Comments QUANT BETA HCG, Routine 08/06/2024 8:47 EST Encounter for assisted reproductive fertility procedure cycle documented in this encounter Results * (ABNORMAL) QUANT BETA HCG, (08/06/2024 8:47 EST) Beta HCG Quant, 19(H) <5 mIU/mL 08/06/2024 10:11 EST [facility] Comment: NOTE: : Negative: [...] & BLOOD GAS OR DERABLES Final Result [facility] [address] [place] [address] documented in this encounter Visit Diagnoses Diagnosis Encounter for assisted reproductive fertility procedure cycle documented in this encounter Care Teams Pattern Mechanic Relationship Specialty Start Date End Date None, Provider PCP - General 05/09/24 documented as of this encounter
--- OUTSIDE RECORDS SUMMARY | 2024-09-16 01:34 | XMS_ITS | Encounter Summary ---
Author Organization [facility] Address [address] [place] [address] Care Team Providers Care Gem Cutter Name Role Phone [facility] Internal Medicine, Primary Care Provi darrel Encounter Details Date Type Department Care Team (Late st Contact Info) Description 07/16/2023 Orders Only [facility] Reproductive Medicine & Infertility Center - [facility] [address] [place], [place] [id number] Francisco Sharma MD [address] [facility], [address] [place] [address] Uterine polyp (Primary Dx) Social History Tobacco Use Types Packs/Day Years Used Date Smoking Tobacco: Never Smokeless Tobacco: Never Alcohol Use Standard Drinks/Week Comments Yes 3 (1 standard drink = 0.6 oz pur [...] as of this encounter Visit Diagnoses Diagnosis Uterine polyp- Primary Polyp of corpus uteri documented in this encounter Orders Case Request Count Last Ordered Date First Orde red Date CASE REQUEST OPERATING ROOM 1 07/16/2023 documented in this encounter Care Teams Gem Cutter Relationship Specialty Start Date End Date [facility] Internal Medicine, [place] [address] [place] [address] PCP - General 11/03/15 10/01/23 documented as of this encounter
--- OUTSIDE RECORDS SUMMARY | 2024-09-16 01:34 | XMS_ITS | Encounter Summary ---
Author Organization [facility] Address [address] [place] [address] Care Team Providers Care Thread Singer Name Role Phone [facility] Internal Medicine, Primary Care Provi darrel Unknown, Provider Primary Care Provider Unava ilable None, Provider Primary Care Provider Unavailabl e Encounter Details Date Type Department Care Team (Late st Contact Info) Description 09/04/2021 Lab Requisition [facility] Pathology & Laboratory Medicine - [facility] [address], [place] [id number] Outr Resulting Lab, Provider Social History Tobacco Use Types Packs/Day Years Used Date Smoking Tobacco: Never Smokeless Tobacco: Never Alcohol Use Standard Drinks/Week Comments Yes 3 (1 standard drink = 0.6 oz pur e alcohol) Interpersonal Safety Answer Date Record ed Physically Hurt Never 03/14/2020 Verbally Threaten Not on file 03/14/2020 Comments Yes Sex and Gender Information Value Date Recorded [...] Procedure Name Priority Date/Time Associated Diagnosis Comments RUBELLA IGG ANTIBODY Routine 09/04/2021 12:01 EST VARICELLA IGG ANTIBODY Routine 09/04/2021 12:01 EST documented in this encounter Results * VARICELLA IGG ANTIBODY (09/04/2021 12:01 EST) Varicella IgG Ab Positive See Note 09/05/2021 10:58 EST [facility] Comment:Presence of detectab le Varicella Zoster virus IgG antibodies. Blood VENOUS BLOOD / Unknown 09/04/2021 12:01 EST 09/04/2021 22:05 EST us Provider Outr Resulting Lab IMMUNOLOGY AND SEROL OGY ORDERABLES Final Result [facility] [address] [place] [address] * RUBELLA IGG ANTIBODY (09/04/2021 12:01 EST) Rubella IgG Ab Positive See Note 09/05/2021 11:05 EST [facility] Comment:Positive for IgG ant ibodies to Rubella virus. Blood VENOUS BLOOD / Unknown 09/04/2021 12:01 EST 09/04/2021 22:05 EST us Provider Outr Resulting Lab CHEMISTRY & BLOOD GA S ORDERABLES Final Result Performing Organization Address City/[facility]/ZIP Co de Phone Number [facility] [address] [place] [address] documented in this encounter Visit Diagnoses Not on filedocumented in this encounter Care Teams Thread Singer Relationship Specialty Start Date End Date [facility], [place] [address] [place] [address] PCP - General 3/24/16 2/20/24 Unknown, Provider, [place] [address] [address] PCP - General 10/02/23 4 None, Provider PCP - General 05/09/24 documented as of this encounter
--- OUTSIDE RECORDS SUMMARY | 2024-09-16 01:34 | XMS_ITS | Encounter Summary ---
Author Organization [facility] Address [address] [place] [address] Care Team Providers Care Candy Maker Helper Name Role Phone [facility] Internal Medicine, Primary Care Provi darrel Reason for Referral * BUY BOAT OPERATOR (Routine/Next Available) - Authorization Not Required Specialty Diagnoses / Procedures Referred By Contac t Referred To Contact Diagnoses Female infertility Procedures US 3D (RENDERING ON SEPARATE WORKSTATION) Cori Delgado MD Phone: tel: fax: [facility] DIRECTOR OF PHYSICAL THERAPY/BALBIR Referral ID Status Reason Start Date Expiration Date Visits Requested Visits Authorized [id number] Authorization Not Required 06/14/2023 1 1 Reason for Visit * BUY BOAT OPERATOR (Routine/Next Available) - Authorization Not Required Specialty Diagnoses / Procedures Referred By Contjean t Referred To Contact Diagnoses Female infertility Procedures US HYSTEROSONOGRAPHY WITH PELVIS TV US HYSTEROSONOGRAPHY Cori Delgado MD Phone: tel: fax: [facility] DIRECTOR OF PHYSICAL THERAPY/BALBIR Referral ID Status Reason Start Date Expiration Date Visits Requested Visits Authorized [id number] Authorization Not Required 02/08/2023 1 1 Encounter Details Date Type Department Care Team (Latest Contact Info) Description 06/14/2023 10:12 EDT - 06/14/2023 23:59 EDT Hospital Encounter [facility] - [address] [address] Female infertility Discharge Disposition: Home or Self Care Social [...] Discharge estradioL (ESTRACE) 1 mg tablet Take by mouth daily as directed. Use to finish estradiol taper. 6 Tablet 07/27/2021 4 progesterone in oil 50 mg/mL injection Inject 1.5 mL into the muscle daily. 3 Each 2 07/27/2021 4 documented as of this encounter Discharge Disposition Disposition Code Departure Means Destination Home or Self Care documented in this encounter Plan of Treatment Not on file documented as of this encounter Procedures Procedure Name Priority Date/Time Associated Diagnosis Comments US 3D (RENDERING ON SEPARATE WORKSTATION) Routine 06/14/2023 11:30 EDT Female infertility US HYSTEROSONOGRAPHY WITH PELVIS TV Routine 06/14/2023 11:30 EDT Female infertility documented in this encounter Results * US 3D (RENDERING ON SEPARATE WORKSTATION) (06/14/2023 11:30 EDT) Anatomical Region Laterality Modality Pelvis Ultrasound 06/14/2023 11:0 3 EDT Narrative 06/14/2023 12:17 EDT Assessment LMP on 06/03/2023 Uterus ====== Uterus length ??71.3 mm Uterus width ?? 46.8 mm Uterus height ??37.2 mm Endometrial thickness, total ?? 9.2 mm Uterine fibroid D1 21.5 mm Uterine fibroid D2 17.3 mm Uterine fibroid D3 14.8 mm Uterine fibroid mean ?? 17.9 mm Uterine fibroid vol ?2.878 cm cubed Procedure ======== SIS procedure: risks,benefits and procedure reviewed with the patient. Consent signed. Speculum exam,cervix washed X 3 with betadine. Catheter placed and saline instilled under US observation. Patient tolerated procedure. HyCoSy shows mostly normal cavity with no epithelial or intracavitary lesions and bilateral flow of air bubbles out the tubal ostia and free fluid in cul de sac afterward consistent with bilateral tubal patency. small 4 mm polyp noted near right cornua and possibly a 6 x 3 mm one mid cavity. Right Ovary ========= Rt ovary D1 ?28.1 mm Rt ovary D2 ?27.2 mm Rt ovary D3 ?21.0 mm Rt ovary Vol ?? 8.4 cm cubed Rt ovarian follicle D1 21.5 mm Rt ovarian follicle D2 18.3 mm Rt ovarian follicle D3 20.4 mm Rt ovarian follicle mean ?? 20.1 mm Rt ovarian follicle vol ?4.201 cm cubed Rt ovary other findings: ?? afc 15 Left Ovary ======== Lt ovary D1 ?25.5 mm Lt ovary D2 ?25.0 mm Lt ovary D3 ?19.3 mm Lt ovary Vol ?? 6.4 cm cubed Lt ovary other findings: ?? afc 8 Impression ========= Sonohyst T HyCoSy w/Pelvic TV- 80879 + 18677+ 98782,?Transvaginal 3D - 12633 Normal patent tubes normal ultrasound except small polyps in cavity combined afc 20 I have personally reviewed and adjusted the images for the 3D rendering on an independent workstation prior to interpretation. 3D imaging was utilized. 3D imaging was utilized. Coronal rendered image of the uterus shows a normal uterine cavity except for small polyps Follow-up ======== Follow-up as clinically indicated. Comment ======== Ultrasound findings discussed w/patient. Z31.41 encounter for fertility testing, N84.0 polyp of endometrium DATE OF SERVICE: .7/.1/<OBR Procedure Note Meliza Sena MD - 06/14/2023 Assessment LMP on 06/03/2023 Uterus ====== Uterus length 71.3 mm Uterus width 46.8 mm Uterus height 37.2 mm Endometrial thickness, total 9.2 mm Uterine fibroid D1 21.5 mm Uterine fibroid D2 17.3 mm Uterine fibroid D3 14.8 mm Uterine fibroid mean 17.9 mm Uterine fibroid vol 2.878 cm cubed Procedure ======== SIS procedure: risks,benefits and procedure reviewed with the patient.Consent signed. Speculum exam,cervix washed X 3 with betadine. Catheterplaced and saline instilled under US observation. Patient tolerated procedure. HyCoSy shows mostly normal cavity with no epithelial or intracavitarylesions and bilateral flow of air bubbles out the tubal ostia and freefluid in cul de sac afterward consistent with bilateral tubal patency. small 4 mm polyp noted near right cornua and possibly a 6 x 3 mm one midcavity. Right Ovary ========= Rt ovary D1 28.1 mm Rt ovary D2 27.2 mm Rt ovary D3 21.0 mm Rt ovary Vol 8.4 cm cubed Rt ovarian follicle D1 21.5 mm Rt ovarian follicle D2 18.3 mm Rt ovarian follicle D3 20.4 mm Rt ovarian follicle mean 20.1 mm Rt ovarian follicle vol 4.201 cm cubed Rt ovary other findings: afc 15 Left Ovary ======== Lt ovary D1 25.5 mm Lt ovary D2 25.0 mm Lt ovary D3 19.3 mm Lt ovary Vol 6.4 cm cubed Lt ovary other findings: afc 8 Impression ========= Sonohyst T HyCoSy w/Pelvic TV- 16738 + 88088+ 90035,?Transvaginal 3D - 22921 Normal patent tubes normal ultrasound except small polyps in cavity combined afc 20 I have personally reviewed and adjusted the images for the 3D rendering ella independent workstation prior to interpretation. 3D imaging wasutilized. 3D imaging was utilized. Coronal rendered image of the uterus shows a normal uterinecavity except for small polyps Follow-up ======== Follow-up as clinically indicated. Comment ======== Ultrasound findings discussed w/patient. Z31.41 encounter for fertilitytesting, N84.0 polyp of endometrium DATE OF SERVICE: .7/.1/<OBR us Cori Delgado MD IMG US OB ORDERABLES Final Re sult * US HYSTEROSONOGRAPHY WITH PELVIS TV (06/14/2023 11:30 EDT) Anatomical Region Laterality Modality Ultrasound 06/14/2023 11:0 3 EDT Narrative 06/14/2023 12:17 EDT Assessment LMP on 06/03/2023 Uterus ====== Uterus length ??71.3 mm Uterus width ?? 46.8 mm Uterus height ??37.2 mm Endometrial thickness, total ?? 9.2 mm Uterine fibroid D1 21.5 mm Uterine fibroid D2 17.3 mm Uterine fibroid D3 14.8 mm Uterine fibroid mean ?? 17.9 mm Uterine fibroid vol ?2.878 cm cubed Procedure ======== SIS procedure: risks,benefits and procedure reviewed with the patient. Consent signed. Speculum exam,cervix washed X 3 with betadine. Catheter placed and saline instilled under US observation. Patient tolerated procedure. HyCoSy shows mostly normal cavity with no epithelial or intracavitary lesions and bilateral flow of air bubbles out the tubal ostia and free fluid in cul de sac afterward consistent with bilateral tubal patency. small 4 mm polyp noted near right cornua and possibly a 6 x 3 mm one mid cavity. Right Ovary ========= Rt ovary D1 ?28.1 mm Rt ovary D2 ?27.2 mm Rt ovary D3 ?21.0 mm Rt ovary Vol ?? 8.4 cm cubed Rt ovarian follicle D1 21.5 mm Rt ovarian follicle D2 18.3 mm Rt ovarian follicle D3 20.4 mm Rt ovarian follicle mean ?? 20.1 mm Rt ovarian follicle vol ?4.201 cm cubed Rt ovary other findings: ?? afc 15 Left Ovary ======== Lt ovary D1 ?25.5 mm Lt ovary D2 ?25.0 mm Lt ovary D3 ?19.3 mm Lt ovary Vol ?? 6.4 cm cubed Lt ovary other findings: ?? afc 8 Impression ========= Sonohyst T HyCoSy w/Pelvic TV- 58700 + 80010+ 41281,?Transvaginal 3D - 89264 Normal patent tubes normal ultrasound except small polyps in cavity combined afc 20 I have personally reviewed and adjusted the images for the 3D rendering on an independent workstation prior to interpretation. 3D imaging was utilized. 3D imaging was utilized. Coronal rendered image of the uterus shows a normal uterine cavity except for small polyps Follow-up ======== Follow-up as clinically indicated. Comment ======== Ultrasound findings discussed w/patient. Z31.41 encounter for fertility testing, N84.0 polyp of endometrium DATE OF SERVICE: ..1/<OBR Procedure Note Meliza Sena MD - 06/14/2023 Assessment LMP on 06/03/2023 Uterus ====== Uterus length 71.3 mm Uterus width 46.8 mm Uterus height 37.2 mm Endometrial thickness, total 9.2 mm Uterine fibroid D1 21.5 mm Uterine fibroid D2 17.3 mm Uterine fibroid D3 14.8 mm Uterine fibroid mean 17.9 mm Uterine fibroid vol 2.878 cm cubed Procedure ======== SIS procedure: risks,benefits and procedure reviewed with the patient.Consent signed. Speculum exam,cervix washed X 3 with betadine. Catheterplaced and saline instilled under US observation. Patient tolerated procedure. HyCoSy shows mostly normal cavity with no epithelial or intracavitarylesions and bilateral flow of air bubbles out the tubal ostia and freefluid in cul de sac afterward consistent with bilateral tubal patency. small 4 mm polyp noted near right cornua and possibly a 6 x 3 mm one midcavity. Right Ovary ========= Rt ovary D1 28.1 mm Rt ovary D2 27.2 mm Rt ovary D3 21.0 mm Rt ovary Vol 8.4 cm cubed Rt ovarian follicle D1 21.5 mm Rt ovarian follicle D2 18.3 mm Rt ovarian follicle D3 20.4 mm Rt ovarian follicle mean 20.1 mm Rt ovarian follicle vol 4.201 cm cubed Rt ovary other findings: afc 15 Left Ovary ======== Lt ovary D1 25.5 mm Lt ovary D2 25.0 mm Lt ovary D3 19.3 mm Lt ovary Vol 6.4 cm cubed Lt ovary other findings: afc 8 Impression ========= Sonohyst T HyCoSy w/Pelvic TV- 68476 + 90178+ 07484,?Transvaginal 3D - 13582 Normal patent tubes normal ultrasound except small polyps in cavity combined afc 20 I have personally reviewed and adjusted the images for the 3D rendering ella independent workstation prior to interpretation. 3D imaging wasutilized. 3D imaging was utilized. Coronal rendered image of the uterus shows a normal uterinecavity except for small polyps Follow-up ======== Follow-up as clinically indicated. Comment ======== Ultrasound findings discussed w/patient. Z31.41 encounter for fertilitytesting, N84.0 polyp of endometrium DATE OF SERVICE: .7/.1/<OBR us Cori Delgado MD G US OB ORDERABLES Final Re sult documented in this encounter Visit Diagnoses Diagnosis Female infertility Female infertility of unspecified origin documented in this encounter Care Teams Candy Maker Helper Relationship Specialty Start Date End Date [facility] Internal Medicine, [place] [address] [place] [address] PCP - General 11/03/15 10/01/23 documented as of this encounter
--- OUTSIDE RECORDS SUMMARY | 2024-09-16 01:34 | XMS_ITS | Encounter Summary ---
Author Organization [facility] Address [address] [place] [address] Care Team Providers Care Clinical Immunologist Name Role Phone [facility] Internal Medicine, Primary Care Provi darrel Unknown, Provider Primary Care Provider Unava ilable None, Provider Primary Care Provider Unavailabl e Encounter Details Date Type Department Care Team (Late st Contact Info) Description 09/04/2021 Lab Requisition [facility] Pathology & Laboratory Medicine - [facility] [address] [place], [place] [id number] Outr Resulting Lab, Provider Social History Tobacco [...] Procedure Name Priority Date/Time Associated Diagnosis Comments HIV 1/2 ANTIGEN AND ANTIBODY, 4TH GENERATION Routine 09/04/2021 12:01 EST documented in this encounter Results * HIV 1/2 ANTIGEN AND ANTIBODY, 4TH GENERATION (09/04/2021 12:01 EST) HIV 1 and 2 Antibody/p24 Antigen, 4th Generation Negative Negative 09/05/2021 10:08 EST [facility] Comment:If acute HIV-1 infec tion is suspected in a high risk patient, submit plasma specimen for HIV-1 RNA quantitation test. Blood VENOUS BLOOD / Unknown 09/04/2021 12:01 EST 09/04/2021 22:05 EST Narrative [facility] - 09/05/2021 10:08 EST Fourth Generation assay performed on the Siemens Centaur XPT. us Provider Outr Resulting Lab IMMUNOLOGY AND SEROL OGY ORDERABLES Final Result [facility] [address] [place] [address] documented in this encounter Visit Diagnoses Not on filedocumented in this encounter Care Teams Clinical Immunologist Relationship Specialty Start Date End Date [facility] Internal Medicine, [place] [place] [address] PCP - General 11/03/15 10/01/23 Unknown, Provider[place] [address] [address] PCP - General 10/02/23 4 None, Provider PCP - General 05/09/24 documented as of this encounter
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
--- OUTSIDE RECORDS SUMMARY | 2024-09-16 01:34 | XMS_ITS | Encounter Summary ---
Author Organization [facility] Address [address] [place] [address] Care Team Providers Care Meter Attendant Name Role Phone [facility] Internal Medicine, Primary Care Provi darrel Unknown, Provider Primary Care Provider Unava ilable None, Provider Primary Care Provider Unavailabl e Encounter Details Date Type Department Care Team (Late st Contact Info) Description 05/06/2023 Lab Requisition [facility] Pathology & Laboratory Medicine - [facility] [address], [place] [id number] Outr Resulting Lab, Provider Social History Tobacco [...] Procedure Name Priority Date/Time Associated Diagnosis Comments HEPATITIS B SURFACE ANTIBODY Routine 05/06/2023 8:51 EDT documented in this encounter Results * HEPATITIS B SURFACE ANTIBODY (05/06/2023 8:51 EDT) Hep B Surface Ab, Quantitative 139.2 See Note mIU/mL 05/07/2023 8:52 EDT [facility] Comment: Reference Range for Hep B Surface Ab, Quant: Positive: >= 10.0 mIU/mL Negative: ??< 10.0 mIU/mL Patient is presumed to be immune to infection with Hepatitis B Virus. Hep B Surface Ab, Qualitative Positive See Note 05/07/2023 8:52 EDT [facility] Comment: Reference Range for Hep B Surface Ab, Qual: Unvaccinated: ??Negative Vaccinated: ??Positive Blood VENOUS BLOOD / Unknown 05/06/2023 8:51 EDT 05/06/2023 17:12 EDT us Provider Outr Resulting Lab CHEMISTRY & BLOOD GA S ORDERABLES Final Result Performing Organization Address [facility]/State/[facility] Co de Phone Number [facility] [address] [place] [address] documented in this encounter Visit Diagnoses Not on filedocumented in this encounter Care Teams Meter Attendant Relationship Specialty Start Date End Date [facility] Internal Medicine, [place] [address] PCP - General 11/03/15 10/01/23 Unknown, Provider, [place] [address] [place] [address] PCP - General 10/02/23 4 None, Provider PCP - General 05/09/24 documented as of this encounter
--- OUTSIDE RECORDS SUMMARY | 2024-09-16 01:34 | XMS_ITS | Encounter Summary ---
Author Organization [facility] Address [address] [place] [address] Care Team Providers Care Cutting Machine Tender Decorative Name Role Phone Unknown, Provider MD Primary Care Provider Unava ilable None, Provider Primary Care Provider Unavailabl e Encounter Details Date Type Department Care Team (Late st Contact Info) Description 04/14/2024 Orders Only [facility] - [address] [address] Rebecca Wilcox RN Social History Tobacco Use Types Packs/Day Years [...] muscle daily. 3 Each 1 04/14/2024 4 chorionic gonadotropin, human (PREGNYL) 10,000 unit injection Injected 1 mL into the skin once when directed. BILL TO IVF CLINIC PLAN, GLOBAL. 1 Each 04/14/2024 4 menotropins (MENOPUR) 75 unit solution for subcutaneous injection Inject 150 Units into the skin daily. 15 Each 04/14/2024 4 Follitropin [place] (GONAL-F) 1,050 unit recon soln Inject 300 Units into the skin daily. 4 Each 04/14/2024 4 ganirelix (ANTAGON) 250 mcg/0.5 mL syringe Inject 0.5 mL into the skin daily. 8 Each 04/14/2024 4 documented in this encounter Plan of Treatment Not on file documented as of this encounter Visit Diagnoses Not on filedocumented in this encounter Care Teams Cutting Machine Tender Decorative Relationship Specialty Start Date End Date Unknown, Provider, PCP - General 10/02/23 05/08/24 None, Provider PCP - General 05/09/24 documented as of this encounter
--- OUTSIDE RECORDS SUMMARY | 2024-09-16 01:34 | XMS_ITS | Encounter Summary ---
Author Organization [facility] Address [address] [place] [address] Care Team Providers Care Maintenance Director Name Role Phone Unknown, Provider Primary Care Provider Unava ilable Reason for Referral * Specialty Diagnoses / Procedures Referred By Serene martinez Referred To Contact Francisco Sharma MD Phone: tel: fax: Referral ID Status Reason Start Date Expiration Date Visits Re quested Visits Authorized Reason for Visit * Auth/Cert (Routine) Specialty Diagnoses / Procedures Referred By Serene martinez Referred To Contact Diagnoses Uterine polyp Uterine polyp [N84.0] Procedures OR HYSTEROSCOPY BX ENDOMETRIUM&/POLYPC W/WO D&C HYSTEROSCOPY, POLYPECTOMY, DILATION AND CURETTAGE Referral ID Status Reason Start Date Expiration Date Visits Re quested Visits Authorized [id number] 1 1 Encounter Details Date Type Department Care Team (Late st Contact Info) Description 10/11/2023 9:08 EST - 10/11/2023 13:56 EST Hospital Encounter [facility] OR [address] [place] [address] Laila Whitfield MD [address] [facility], [facility], [address] [place] [address] Discharge Disposition: Home or Self Care Social [...] Sign Reading Time Taken Comments Blood Pressure 96/71 10/11/2023 1330 EST Pulse 86 10/11/2023 1028 EST Temperature 36.5 ??C (97.7 ??F) 10/11/2023 1330 EST Respiratory Rate 14 10/11/2023 1330 EST Oxygen Saturation 100% 10/11/2023 1330 EST Inhaled Oxygen Concentration - - Weight 61.2 kg (134 lb 14.7 oz) 10/11/2023 1028 EST Height 160 cm (5' 3) 10/11/2023 1028 EST Body Mass Index 23.9 10/11/2023 1028 EST documented in this encounter Functional Status [...] 05/01/2018 13:35 EDT documented in this encounter Discharge Disposition Disposition Code Departure Means Destination Comment s Home or Self Care Wheelchair Home documented in this encounter H&P Notes * Francisco Lemus MD - 10/11/2023 1110 EST The preoperative history and physical which was performed within 30 days of this procedure has been reviewed and the clinically appropriate elements of the physical examination have been repeated. There are no changes to the documented history and physical or if so such changes are documented below Francisco Lemus MD 10/11/2023 11:10 Cosigned by Laila Whitfield MD at 10/18/2023 9:52 EST Source Note - Laila Whitfield MD - 09/26/2023 14:00 EST REPRODUCTIVE ENDOCRINOLOGY & INFERTILITY PREOPERATIVE HISTORY & PHYSICAL HISTORY OF PRESENT ILLNESS: Chief Complaint: Chief Complaint Patient presents with Pre-op Exam Planned Procedure: diagnostic hysteroscopy, polypectomy, dilation and curettage Surgeon: Nahid Planned Procedure Date: 10/11/23 HPI 38 y.o. female with uterine polyp who presents for preoperative history and physical. Discussed Blood/Blood Products: yes - willing to accept any blood products Patient Active Problem List Diagnosis Date Noted Encounter for test, result unknown 06/28/2021 Infertility, female, primary 05/22/2018 Nevus 04/19/2014 Uterine polyp 07/16/2023 PMH PSH Past Medical History: Diagnosis Date Retained products of conception after miscarriage 02/10/2019 No past surgical history on file. OB Hx OB History Para Term AB Living 3 0 0 0 2 0 SAB IAB Ectopic Multiple Live Births 2 0 0 0 0 # Outcome Date GA Lbr Tim/2nd Weight Sex Delivery Anes PTL Lv 3 2 SAB 11/2020 5w0d SAB Comments: anembryonic following FET 1 SAB 12/2018 SAB Social History Family history Social History Tobacco Use Smoking status: Never Smokeless tobacco: Never Substance Use Topics Alcohol use: Yes Alcohol/week: 3.0 - 4.0 standard drinks of alcohol Types: 3 - 4 Glasses of wine per week Drug use: No No family history on file. Medications Current Outpatient Medications on File Prior to Visit Medication Sig Dispense Refill estradioL (ESTRACE) 1 mg tablet Take by mouth daily as directed. Use to finish estradiol taper. (Patient not taking: Reported on 09/26/2023) 6 Tablet 0 progesterone in oil 50 mg/mL injection Inject 1.5 mL into the muscle daily. (Patient not taking: Reported on 09/26/2023) 3 Each 2 No current facility-administered medications on file prior to visit. Allergies No Known Allergies Communicable Disease: None OBJECTIVE: BP 102/72 Wt 63.2 kg (139 lb 6.4 oz) BMI 24.69 kg/m?? General: alert, cooperative, no distress Heart: regular rate and rhythm, S1, S2 normal, no extra heart sounds Lungs: clear to auscultation bilaterally, non labored breathing Abdomen: soft, non-tender; bowel sounds normal; no masses, no organomegaly Skin: normal coloration and turgor, no rashes, no skin lesions noted Pelvis: deferred to the OR ASSESSMENT: 38 y.o. female with uterine polyp who presents for preoperative history and physical. PLAN: There are no diagnoses linked to this encounter. Assessment / Plan: 35 y/o G0 with uterine polyphere for preop for diagnostic hysteroscopy, polypectomy, dilation and curettage Amalia-operative Considerations: - Consent: paper; signed today (12/27/2022) in the office Counseling: Procedure, risks, reasons, benefits and complications (including injury to bowel, bladder, major blood vessel, ureter, bleeding, possibility of transfusion, infection, or fistula formation) reviewed in detail. All questions were answered to her satisfaction, and she was encouraged to contact us prior to surgery with any additional questions or concerns. - Other Studies: n/a - VTE PPx: SCDs Instructions reviewed, including NPO after midnight. Patient verbalized understanding of our conversation and/or counseling. All questions answered to her satisfaction. Instructed to call with any new questions or concerns. Laila Whitfield MD documented in this encounter OR Notes * OR Surgeon - Francisco Lemus MD - 10/11/2023 1248 EST Operative Report Name: Reanna Espinoza : 1985 Date of Service: 10/11/2023 Surgeon: Laila Whitfield MD Code Inspector: Francisco Lemus MD Procedure: Hysteroscopy, dilation and curettage Preoperative Diagnosis: Uterine polyp Infertility Postoperative Diagnosis: Same Anesthesia: general Estimated blood loss: 2 cc IV fluids: 800 mL Fluid deficit: 90 mL Urine Output: unmeasured Specimens Sent: endometrial curettings Complications: none Disposition: PACU, then home Indications: This is a 38 y.o. who presented to the office with a complaint of infertility.Sonohysterogram was notable for two uterine polyps measuring 6mm and 4mm. The above procedure was recommended. The patient was counseled on the risks, benefits and alternatives to the procedure and awritten consent was signed prior to the start of the procedure. Findings: Normal uterine cavity with no polyps, fibroids, or adhesions. Proliferative endometrium noted. Bilateral tubal ostia visualized. Hemostatic at the end of the case. Narrative: The patient was taken to the operating room with an IV in place where general anesthesia was administered and was found to be adequate. She was prepped and draped in the normal sterile fashion in thedorsal supine lithotomy position. A speculum was placed in the patient's vagina. The tenaculum as then applied to the anterior lip of the cervix. The cervix was then gently dilated using dilators in increasing size up to size 21 F. The hysteroscope was introduced in to the uterine cavity through the cervix using saline as the distending medium. The entire uterine cavity was visualized with the findings noted above. Hysteroscopic graspers were used to sample the endometrium and clear the right cornua. The hysteroscope was removed. There was minimal bleeding during the procedure and the tenaculum was removed the excellent hemostasis noted. The patient tolerated the procedure well. The patient was taken to the PACU in stable condition. Dr. Whitfield was present throughout the entire procedure. Francisco Lemus MD BALBIR Fellow 10/11/23 12:48 Cosigned by Laila Whitfield MD at 10/18/2023 9:52 EST Associated attestation - Laila Whitfield MD - 10/18/2023 0952 EST I was present for the entire procedure and performed critical and raymundo portions of the procedure. Laila Whitfield MD documented in this encounter Plan of Treatment Scheduled Referrals Name Type Priority Associated Diagnoses Order Schedule PROVIDER FOLLOW-UP INSTRUCTIONS Outpatient Referral Routine Ordered: 10/11/2023 documented as of this encounter Procedures Procedure Name Priority Date/Time Associated Diagnosis Comments ECG REPORT - SCANNED 10/15/2023 10:32 EST SURGICAL PATHOLOGY Routine 10/11/2023 12 :43 EST HYSTEROSCOPY, POLYPECTOMY, DILATION AND CURETTAGE OF UTERUS, AND ENDOMETRIAL BIOPSY 10/11/2023 11:58 EST Uterine polyp TEST, URINE STAT 10/11/2023 9:44 EST documented in this encounter Results * ECG REPORT - SCANNED (10/15/2023 10:32 EST) 10/15/2023 10:3 2 EST us Scan 2 Machine Tool Operator PROCEDURE/MINOR SURGICAL OR DERABLES Final Result * SURGICAL PATHOLOGY (10/11/2023 12:43 EST) Note to Patient The following pathology results have been interpreted by your pathologist and may be available to you before your health provider has had the opportunity to review them. Please allow time for your provider to receive these results and explore management options, if applicable. 10/15/2023 14:33 [facility] Final Diagnosis A. ENDOMETRIUM, CURETTAGE: - Late secretory endometrium with extensive breakdown suggestive of menstrual-type endometrium. See comment. 10/15/2023 14:33 [facility] Diagnosis Comment Apparatus Lineman slides of this case were reviewed at the intradepartmental consultation conference. 10/15/2023 14:33 [facility] Attestation By the signature below, the attending physician certifies that they have 1) personally conducted a gross and/or microscopic examination of the described specimen(s), and/or personally interpreted the results of laboratory testing of the described specimen(s), and 2) personally rendered or confirmed the above diagnosis. 10/15/2023 14:33 [facility] at 1433 Clinical History Uterine polyp 10/15/2023 14:33 [facility] Gross Description A. Received fresh labelled with proper patient identification (initials G, V) and uterus curettings is a 1.5 x 1.0 x 0.3 cm aggregate of pink-red soft tissue. The specimen is entirely submitted in A1. SHERRILL SAMAYOA(ASCP) 10/11/2023 15:51 10/15/2023 14:33 EST [facility] Performing Lab [facility] 10/15/2023 14:33 EST [facility] Scanned Images 10/15/2023 14:33 EST [facility] Tissue ENDOMETRIAL STRUCTURE / Unknown 10/11/2023 12:43 EST 10/11/2023 15:01 EST Comment:Pre-op diagnosis: Uterine polyp [N84.0] Laila Whitfield MD PATHOLOGY ORDERABLES Fin al Result Performing Organization Address [facility] Co de Phone Number [facility] [address] [place] [address] * TEST, URINE (10/11/2023 9:44 EST) Test, Urine Negative Negative 10/11/2023 10:05 EST [facility] Comment:False negative resul ts may occur in women who are beyond 5-8 weeks gestation. Diagnosis of should be based on a correlation of test results with typical clinical signs and symptoms. Urine URINE / Unknown Urine Collect / Unknown 10/11/2023 9:44 EST 10/11/2023 9:58 EST us Elroy Everett MD URINALYSIS ORDERABLES Final R esult Performing Organization Address [facility] Co de Phone Number [facility] [address] [place] [address] documented in this encounter Visit Diagnoses Diagnosis Uterine polyp- Primary Polyp of corpus uteri documented in this encounter Admitting Diagnoses Diagnosis Uterine polyp Polyp of corpus uteri documented in this encounter Administered Medications Inactive Administered Medications - up to 3 most recent administrations Medication Order MAR Action Action Date Dose Rate Site atropine 0.1 mg/mL syringe 0.5 mg 0.5 mg, intravenous, PRN, Starting on Sat10/11/23 at 1250, Until Sat10/11/23 at 1556, Symptomatic HR < 50, Routine, Recovery (only) diphenhydrAMINE (BENADRYL) injection 12.5 mg 12.5 mg, intravenous, PRN, 1 dose, Starting on Sat10/11/23 at 1250, Until Sat10/11/23 at 1556, nausea, Routine, Recovery (only) fentaNYL citrate (PF) injection 25-50 mcg 25-50 mcg, intravenous, EVERY 5 MIN PRN, Starting on Sat10/11/23 at 1250, Until Sat10/11/23 at 1556, Pain, Routine, Recovery (only) HYDROmorphone (PF) (DILAUDID) 0.5 mg/0.5 mL syringe 0.3-0.5 mg 0.3-0.5 mg, intravenous, EVERY 10 MINUTES PRN, Starting on Sat10/11/23 at 1250, Until Sat10/11/23 at 1556, Pain, Routine, Recovery (only) lactated ringers (LR) infusion at 25 mL/hr, intravenous, CONTINUOUS, Starting on Sat10/11/23 at 1000, Until Sat10/11/23 at 1556, Routine, Preprocedure Rate Change 10/11/2023 13:01 EST 50 0 mL/hr Continued by Anesthesia 10/11/2023 12:07 EST 25 mL/hr New Bag 10/11/2023 10:31 EST 25 mL/hr lactated ringers (LR) infusion at 75 mL/hr, intravenous, PACU CONTINUOUS, Starting on Sat10/11/23 at 1315, Until Sat10/11/23 at 1556, Routine, Recovery (only) Rate Documented 10/11/2023 12:57 EST 75 mL /hr naloxone (NARCAN) injection 0.2 mg 0.2 mg, intravenous, PRN, Starting on Sat10/11/23 at 1250, Until Sat10/11/23 at 1556, Opioid Reversal, Routine, Recovery (only) documented in this encounter Discontinued Medications Medication Sig Discontinue Reason Start Date End Da te progesterone in oil 50 mg/mL injection Inject 1.5 mL into the muscle daily. 07/27/2021 10/11/2023 estradioL (ESTRACE) 1 mg tablet Take by mouth daily as directed. Use to finish estradiol taper. 07/27/2021 10/11/2023 documented as of this encounter Active and Recently Administered Medications Times are shown in EST. Continuous Medication Order 10/09/2023 10/10/2023 10/11/2023 lactated ringers (LR) infusion at 25 mL/hr, intravenous, CONTINUOUS, Starting on Sat10/11/23 at 1000, Until Sat10/11/23 at 1556, Routine, Preprocedure 1031 (New Bag - Prov ider: Sarai Aquino, MALIA)1207 (Continued by Anesthesia - Provider: Roxane Agosto MD)1301 (Rate Change - Provider: Renny Reynaga CRNA)1302 (Completed - Provider: Lucy Cristobal RN) lactated ringers (LR) infusion at 75 mL/hr, intravenous, PACU CONTINUOUS, Starting on Sat10/11/23 at 1315, Until Sat10/11/23 at 1556, Routine, Recovery (only) 1257 (Rate Documente d - Provider: Brea Arriaga RN)1347 (Completed - Provider: Lucy Cristobal RN) PRN Medication Order 10/09/2023 10/10/2023 10/11/2023 atropine 0.1 mg/mL syringe 0.5 mg 0.5 mg, intravenous, PRN, Starting on Sat10/11/23 at 1250, Until Sat10/11/23 at 1556, Symptomatic HR < 50, Routine, Recovery (only) diphenhydrAMINE (BENADRYL) injection 12.5 mg 12.5 mg, intravenous, PRN, 1 dose, Starting on Sat10/11/23 at 1250, Until Sat10/11/23 at 1556, nausea, Routine, Recovery (only) fentaNYL citrate (PF) injection 25-50 mcg 25-50 mcg, intravenous, EVERY 5 MIN PRN, Starting on Sat10/11/23 at 1250, Until Sat10/11/23 at 1556, Pain, Routine, Recovery (only) HYDROmorphone (PF) (DILAUDID) 0.5 mg/0.5 mL syringe 0.3-0.5 mg 0.3-0.5 mg, intravenous, EVERY 10 MINUTES PRN, Starting on Sat10/11/23 at 1250, Until Sat10/11/23 at 1556, Pain, Routine, Recovery (only) naloxone (NARCAN) injection 0.2 mg 0.2 mg, intravenous, PRN, Starting on Sat10/11/23 at 1250, Until Sat10/11/23 at 1556, Opioid Reversal, Routine, Recovery (only) sodium chloride 0.9 % irrigation (CANCELED) PRN, Starting on Sat10/11/23 at 1235, Until Sat10/11/23 at 1254, Routine, Intraprocedure 1222 (Given - Provid er: Laila Whitfield MD)1235 (Given - Provider: Laila Whitfield MD) documented in this encounter Orders Medications Ordered That Elroy ht Not Have Been Administered Count Last Ordered Date First Ordered Date atropine 0.1 mg/mL syringe 0.5 mg 1 024 chlorhexidine gluconate 2 % cloth 1 Each 2 10/11/2023 diphenhydrAMINE (BENADRYL) i njection 12.5 mg 1 10/11/2023 fentaNYL citrate (PF) injection 25-50 mcg 1 10/11/2023 HYDROmorphone (PF) (DILAUDID ) 0.5 mg/0.5 mL syringe 0.3-0.5 mg 1 10/11/2023 lidocaine (PF) 10 mg/mL (1 % ) injection 2 mg 1 10/11/2023 naloxone (NARCAN) injection 0.2 mg 1 2023 sodium chloride 0.9 % irrigation 1 10/11/19 Diet Count Last Ordered Date First Orde red Date DISCHARGE DIET 1 10/11/2023 Nursing Count Last Ordered Date First Orde red Date ACTIVITY INSTRUCTIONS 1 10/11/2023 Discharge Count Last Ordered Date First Orde red Date DISCHARGE PATIENT 1 10/11/2023 documented in this encounter Care Teams Maintenance Director Relationship Specialty Start Date End Date Unknown, Provider, PCP - General 10/02/23 05/08/24 documented as of this encounter
--- OUTSIDE RECORDS SUMMARY | 2024-09-16 01:34 | XMS_ITS | Encounter Summary ---
Author Organization [facility] Address [address] [place] [address] Care Team Providers Care Dam Worker Name Role Phone [facility] Internal Medicine, Primary Care Provi darrel Unknown, Provider Primary Care Provider Unava ilable None, Provider Primary Care Provider Unavailabl e Encounter Details Date Type Department Care Team (Late st Contact Info) Description 07/25/2023 Lab Requisition [facility] Pathology & Laboratory Medicine - [facility] [address] [place], [place] [id number] Outr Resulting Lab, Provider Social History Tobacco [...] Name Priority Date/Time Associated Diagnosis Comments HEPATITIS C AB W REFLEX TO HCV RNA BY PCR Routine 07/25/2023 15:50 EST HEPATITIS B CORE ANTIBODY (TOTAL) Routine 07/25/2023 15:50 EST HEPATITIS B SURFACE ANTIGEN Routine 07/25/2023 15:50 EST documented in this encounter Results * HEPATITIS B CORE ANTIBODY (TOTAL) (07/25/2023 15:50 EST) Hepatitis B Core Ab, Total Negative Negative 07/26/2023 10:14 EST [facility] Blood VENOUS BLOOD / Unknown 07/25/2023 15:50 EST 07/25/2023 22:04 EST us Provider Outr Resulting Lab CHEMISTRY & BLOOD GA S ORDERABLES Final Result Performing Organization Address City/[facility]/ZIP Co de Phone Number [facility] [address] [place] [address] * HEPATITIS B SURFACE ANTIGEN (07/25/2023 15:50 EST) Hep B Surface Ag Negative Negative 07/26/2023 9:50 EST [facility] Blood VENOUS BLOOD / Unknown 07/25/2023 15:50 EST 07/25/2023 22:04 EST us Provider Outr Resulting Lab CHEMISTRY & BLOOD GA S ORDERABLES Final Result Performing Organization Address City/[facility]/ZIP Co de Phone Number [facility] [address] [place] [address] * HEPATITIS C AB W REFLEX TO HCV RNA BY PCR (07/25/2023 15:50 EST) Hep C Antibody Negative Negative 07/26/2023 10:16 EST [facility] Blood VENOUS BLOOD / Unknown 07/25/2023 15:50 EST 07/25/2023 22:04 EST us Provider Outr Resulting Lab CHEMISTRY & BLOOD GA S ORDERABLES Final Result [facility] [address] [place] [address] documented in this encounter Visit Diagnoses Not on filedocumented in this encounter Care Teams Dam Worker Relationship Specialty Start Date End Date [facility] Internal Medicine, [address] [place], [place] [id number] PCP - General 11/03/15 10/01/23 Unknown, Provider, [place] [address] [place] [address] PCP - General 10/02/23 4 None, Provider PCP - General 05/09/24 documented as of this encounter
--- OUTSIDE RECORDS SUMMARY | 2024-09-16 01:34 | XMS_ITS | Encounter Summary ---
Author Organization [facility] Address [address] [place] [address] Care Team Providers Care Stock Repairer Name Role Phone [facility] Internal Medicine, Primary Care Provi darrel Unknown, Provider Primary Care Provider Unava ilable None, Provider Primary Care Provider Unavailabl e Encounter Details Date Type Department Care Team (Late st Contact Info) Description 09/04/2021 Lab Requisition [facility] Pathology & Laboratory Medicine - [facility] [address], [place] [id number] Outr Resulting Lab, Provider Social History Tobacco [...] REFLEX TO HCV RNA BY PCR Routine 09/04/2021 12:01 EST HEPATITIS B SURFACE ANTIGEN Routine 09/04/2021 12:01 EST documented in this encounter Results * HEPATITIS B SURFACE ANTIGEN (09/04/2021 12:01 EST) Hep B Surface Ag Negative Negative 09/05/2021 9:10 EST [facility] Blood VENOUS BLOOD / Unknown 09/04/2021 12:01 EST 09/04/2021 22:05 EST us Provider Outr Resulting Lab CHEMISTRY & BLOOD GA S ORDERABLES Final Result Performing Organization Address City/[facility] Co de Phone Number [facility] [address] [place] [address] * HEPATITIS C AB W REFLEX TO HCV RNA BY PCR (09/04/2021 12:01 EST) Hep C Antibody Negative Negative 09/05/2021 9:48 EST [facility] Blood VENOUS BLOOD / Unknown 09/04/2021 12:01 EST 09/04/2021 22:05 EST us Provider Outr Resulting Lab CHEMISTRY & BLOOD GA S ORDERABLES Final Result Performing Organization Address City/[facility] Co de Phone Number [facility] [address] [place] [address] documented in this encounter Visit Diagnoses Not on filedocumented in this encounter Care Teams Stock Repairer Relationship Specialty Start Date End Date [facility] Internal Medicine, [place] [address] PCP - General 11/03/15 10/01/23 Unknown, Provider, [place] [address] [place] [address] PCP - General 10/02/23 4 None, Provider PCP - General 05/09/24 documented as of this encounter
--- OUTSIDE RECORDS SUMMARY | 2024-09-16 01:34 | XMS_ITS | Encounter Summary ---
Author Organization [facility] Address [address] [place] [address] Care Team Providers Care Solutions Delivery Consultant Name Role Phone Unknown, Provider Primary Care Provider Unava ilable Reason for Visit * Reason Comments Infertility Baseline Encounter Details Date Type Department Care Team (Late st Contact Info) Description 04/30/2024 8:20 EDT Procedure visit [facility] Reproductive Medicine & Infertility Center - [address] [id number] Seema Barroso MD [address] [place] [address], [address] [place] [address] Encounter for assisted reproductive fertility [...] Sign Reading Time Taken Comments Blood Pressure 132/72 04/30/2024 0837 EDT Pulse - - Temperature - - Respiratory Rate - - Oxygen Saturation - - Inhaled Oxygen Concentration - - Weight 61.2 kg (135 lb) 04/30/2024 0837 EDT Height 160 cm (5' 3) 04/30/2024 0837 EDT Body Mass Index 23.91 04/30/2024 0837 EDT documented in this encounter Functional Status * [...] Progress Notes * Fiona Albert MD - 04/30/2024 0820 EDT BASELINE US VISIT - FRESH IVF CYCLE Date: 04/30/2024 Patient Partner Name: Reanna Espinoza : [birth year] HPI 38 y.o. female with history of unexplained infertility, recurrent loss presents today forbaseline US prior to fresh IVF cycle #3. Risks/benefits/details of oocyte retrieval were discussed at length with the patient, and informed consent was obtained today. Prior infertility treatment: CC50mg/USF/hCG/IUI x3 -> no [...] embryos and then PGT-a of the remaining. Baseline Scan Today (04/30/2024): 3 mm endometrium Quiescent ovaries AFC 17 Labs today: Results for orders placed or performed in visit on 04/30/24 PROGESTERONE Result Value Ref Range Progesterone <0.2 See Table ng/mL ESTRADIOL, ADULTS Result Value Ref Range Estradiol 51 See Note pg/mL Prior Ovarian [place] Testing: AMH 2.4 (12/2023) CD3 FSH 10.8 (07/2023) CD3 E2 14 (07/2023) AFC 20 (06/2023) Trial Transfer (04/30/24): Written informed consent was obtained. The patient was placed in the dorsal lithotomy position. A Ángel speculum inserted in the vagina, and the cervix prepped with povidone iodine. Procedure tolerated well. Salcedo catheter without stylet 5 cm fundal length 4 cm transfer length Stylet: 10 degree curve (bladder underfilled) Transfer: easy pass but visualization would be improved with taveras bladder Past Medical History: Diagnosis Date Activity, other involving cardiorespiratory exercise 09/30/23- no SOB with 2 FOS Exercise involving exercise classes Exercise involving housework Exercise involving jogging Exercise involving walking Retained products of conception after miscarriage 02/10/2019 Uterine polyp No past surgical history on file. Current Outpatient Medications Medication chorionic gonadotropin, human (PREGNYL) 10,000 unit injection Follitropin [place] (GONAL-F) 1,050 unit recon soln ganirelix (ANTAGON) 250 mcg/0.5 mL syringe menotropins (MENOPUR) 75 unit solution for subcutaneous injection progesterone in oil 50 mg/mL injection No current facility-administered medications for this visit. No Known Allergies Patient Vitals for the past 24 hrs: BP Height Weight 04/30/24 0837 132/72 160 cm (63) 61.2 kg (135 lb) Exam: GEN: alert and oriented, cooperative, no distress, appears stated age PSYCH: Exhibits appropriate mood and judgement. HEENT: NC/AT CV: RRR PULM: CTAB EXT: No clubbing, cyanosis, or edema ASSESSMENT/PLAN Reanna was seen today for infertility. Diagnoses and all orders for this visit: Encounter for assisted reproductive fertility procedure cycle - PROGESTERONE; Future - ESTRADIOL, ADULTS; Standing - ANNUAL STORAGE OF EMBRYOS; Future - CRYOPRESERVATION, EMBRYOS; Future - CULTURE & FERTILIZATION OF OOCYTE,< 4 DAYS; Future - EXTENDED CULTURE OF OOCYTES/EMBRYOS, 4-7 DAYS; Future - FOLLICLE PUNCTURE, RETRIEVAL OF OOCYTE; Future - LABORATORY PREPARATION OF EMBRYO(S) FOR TRANSFER; Future - TRANSFER OF EMBRYO, INTRA-UTERINE; Future - OOCYTE ID FROM FOLLICULAR FLUID; Future - EMBRYO BIOPSY, LESS THAN OR EQUAL TO 5 EMBRYOS; Future - ICSI, OVER 10 OOCYTES; Future - ICSI, 10 OOCYTES OR LESS; Future - PROGESTERONE - ESTRADIOL, ADULTS MED PLAN Antagonist FSH 300 units, hMG 75 units IVF ORDERS Fertilization: ICSI Culture all to blastocyst Transfer: fresh transfer of two embryos and then PGT-a of the remaining. Cryopreserve all surviving blasts not transferred after biopsy Sperm sample: fresh partner Patient encounter supervised by attending BALBIR Dr. Yenni Albert MD Reproductive Endocrinology and Infertility Fellow (PGY7) [facility] Attestation statement: I discussed the patient with the Fellow at the time of the patient's visit. I agree with the findings and plan of care. Baseline US and labs clear to start COH. Seema Barroso MD] documented in this encounter Miscellaneous Notes * Addendum Note - Seema Barroso MD - 04/30/2024 0820 EDTAddended by: SEEMA BARROSO on: 04/30/2024 14:31 Modules accepted: Orders documented in this encounter Plan of Treatment Scheduled Orders Name Type Priority Associated Diagnoses Orde r Schedule ANNUAL STORAGE OF EMBRYOS Procedures Routine Encounter for assisted reproductive fertility procedure cycle Expected: 04/30/2024 (Approximate), Expires: 04/30/2025 CRYOPRESERVATION, EMBRYOS Procedures Routine Encounter for assisted reproductive fertility procedure cycle Expected: 04/30/2024 (Approximate), Expires: 04/30/2025 CULTURE & FERTILIZATION OF OOCYTE,< 4 DAYS Procedures Routine Encounter for assisted reproductive fertility procedure cycle Expected: 04/30/2024 (Approximate), Expires: 04/30/2025 EXTENDED CULTURE OF OOCYTES/EMBRYOS, 4-7 DAYS Procedures Routine Encounter for assisted reproductive fertility procedure cycle Expected: 04/30/2024 (Approximate), Expires: 04/30/2025 FOLLICLE PUNCTURE, RETRIEVAL OF OOCYTE Procedures Routine Encounter for assisted reproductive fertility procedure cycle Expected: 04/30/2024 (Approximate), Expires: 04/30/2025 LABORATORY PREPARATION OF EMBRYO(S) FOR TRANSFER Procedures Routine Encounter for assisted reproductive fertility procedure cycle Expected: 04/30/2024 (Approximate), Expires: 04/30/2025 TRANSFER OF EMBRYO, INTRA-UTERINE Procedures Routine Encounter for assisted reproductive fertility procedure cycle Expected: 04/30/2024 (Approximate), Expires: 04/30/2025 OOCYTE ID FROM FOLLICULAR FLUID Procedures Routine Encounter for assisted reproductive fertility procedure cycle Expected: 04/30/2024 (Approximate), Expires: 04/30/2025 EMBRYO BIOPSY, LESS THAN OR EQUAL TO 5 EMBRYOS Procedures Routine Encounter for assisted reproductive fertility procedure cycle Expected: 04/30/2024 (Approximate), Expires: 04/30/2025 ICSI, OVER 10 OOCYTES Procedures Routine Encounter for assisted reproductive fertility procedure cycle Expected: 04/30/2024 (Approximate), Expires: 04/30/2025 ICSI, 10 OOCYTES OR LESS Procedures Routine Encounter for assisted reproductive fertility procedure cycle Expected: 04/30/2024 (Approximate), Expires: 04/30/2025 documented as of this encounter Procedures Procedure Name Priority Date/Time Associated Diagnosis Comments PROGESTERONE Routine 04/30/2024 8:56 EDT Encounter for assisted reproductive fertility procedure cycle ESTRADIOL, ADULTS Routine 04/30/2024 8:5 6 EDT Encounter for assisted reproductive fertility procedure cycle documented in this encounter Results * ESTRADIOL, ADULTS (05/09/2024 8:35 EDT) Estradiol 2,047 See Note pg/mL 05/09/2024 9:53 EDT [facility] Comment: NOTE: FEMALE REFERENCE RANGES: [...] & BLOOD GAS ORDER SUNSHINE Final Result [facility] [address] [place] [address] * ESTRADIOL, ADULTS (05/07/2024 8:32 EDT) [facility] Signature Estradiol 1,050 See Note pg/mL 05/07/2024 9:49 EDT [facility] Comment: NOTE: FEMALE REFERENCE RANGES: [...] ORDER SUNSHINE Final Result Performing Organization Address [facility] de Phone Number [facility] [address] [place] [address] * ESTRADIOL, ADULTS (05/05/2024 8:53 EDT) Estradiol 623 See Note pg/mL 05/05/2024 10:17 EDT [facility] Comment: NOTE: FEMALE REFERENCE RANGES: [...] Unknown 05/05/2024 8:53 EDT 05/05/2024 9:11 EDT Meliza Sena MD CHEMISTRY & BLOOD GAS ORDER SUNSHINE Final Result Performing Organization Address [facility] de Phone Number [facility] [address] [place] [address] * ESTRADIOL, ADULTS (05/03/2024 9:11 EDT) Estradiol 231 See Note pg/mL 05/03/2024 10:24 EDT [facility] Comment: NOTE: FEMALE REFERENCE RANGES: [...] ORDER SUNSHINE Final Result Performing Organization Address [facility] de Phone Number [facility] [address] [place] [address] * ESTRADIOL, ADULTS (04/30/2024 8:56 EDT) [facility] Estradiol 51 See Note pg/mL 04/30/2024 10:10 EDT [facility] Comment: NOTE: FEMALE REFERENCE RANGES: [...] VENOUS BLOOD / Unknown Venipuncture / Unknown 04/30/2024 8:56 EDT 04/30/2024 9:01 EDT Meliza Sena MD CHEMISTRY & BLOOD GAS ORDER SUNSHINE Final Result Performing Organization Address [facility] de Phone Number [facility] [address] [place] [address] * PROGESTERONE (04/30/2024 8:56 EDT) Pathologist [facility] Progesterone <0.2 See Table ng/mL 04/30/2024 10:11 EDT [facility] Comment: Female Reference [...] VENOUS BLOOD / Unknown Venipuncture / Unknown 04/30/2024 8:56 EDT 04/30/2024 9:01 EDT us Meliza Sena MD CHEMISTRY & BLOOD GAS ORDER SUNSHINE Final Result [facility] [address] [place] [address] documented in this encounter Visit Diagnoses Diagnosis Encounter for assisted reproductive fertility procedure cycle- Primary documented in this encounter Discontinued Medications Medication Sig Discontinue Reason Start Date End Da te norgestimate-ethinyl estradioL (ORTHO-CYCLEN) 0.25-35 mg-mcg per tablet Take 1 Tablet by mouth daily. Take active tabs continuously. Discard inactive tabs. Therapy completed 03/11/2024 04/30/2024 documented as of this encounter Care Teams Solutions Delivery Consultant Relationship Specialty Start Date End Date Unknown, Provider, PCP - General 10/02/23 05/08/24 documented as of this encounter
--- OUTSIDE RECORDS SUMMARY | 2024-09-16 01:34 | XMS_ITS | Encounter Summary ---
Author Organization [facility] Address [address] [place] [address] Care Team Providers Care Low Pressure Boiler Tender Name Role Phone [facility] Internal Medicine, Primary Care Provi darrel Encounter Details Date Type Department Care Team (Late st Contact Info) Description 07/11/2021 8:45 EST Phlebotomy Only [facility] 2 Phlebotomy [address] [place], [place] [id number] Sanitary Landfill Operator, Acc Phlebotomy Miscarriage Social History Tobacco Use Types Packs/Day Years [...] Associated Diagnosis Comments QUANT BETA HCG, Routine 07/11/2021 8:39 EST Miscarriage documented in this encounter Results * (ABNORMAL) QUANT BETA HCG, (07/11/2021 8:39 EST) Beta HCG Quant, 442(H) <5 mIU/mL 07/11/2021 9:46 EST [facility] Comment: NOTE: : Negative: Less than 5mIU/mL Indeterminant: Between 5 and 25 mIU/mL, recommend repeat testing in 48 hours Positive: Greater than 25 mIU/mL The results of this assay can be falsely lowered due to the consumption of Biotin. Blood VENOUS BLOOD / Unknown Venipuncture / Unknown 07/11/2021 8:39 EST 07/11/2021 9:00 EST Micah Phillip MD CHEMISTRY & BLOOD GAS NIKOLAY VALENCIA Final Result [facility] [address] [place] [address] documented in this encounter Visit Diagnoses Diagnosis Miscarriage Unspecified spontaneous without mention of complication documented in this encounter Care Teams Low Pressure Boiler Tender Relationship Specialty Start Date End Date [facility] Internal Medicine, [address] [place] [address] PCP - General 11/03/15 10/01/23 documented as of this encounter
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
--- OUTSIDE RECORDS SUMMARY | 2024-09-16 01:34 | XMS_ITS | Encounter Summary ---
Author Organization [facility] Address [address] [place] [address] Care Team Providers Care Patent Attorney Name Role Phone [facility] Internal Medicine, Primary Care Provi darrel Unknown, Provider Primary Care Provider Unava ilable None, Provider Primary Care Provider Unavailabl e Encounter Details Date Type Department Care Team (Late st Contact Info) Description 07/25/2023 Lab Requisition [facility] Pathology & Laboratory Medicine - [facility] [address] [place], [place] [id number] Outr Resulting Lab, Provider Social History Tobacco [...] Procedure Name Priority Date/Time Associated Diagnosis Comments CHLAMYDIA/N. GONORRHOEAE AMPLIFIED NUCLEIC ACID Routine 07/25/2023 15:40 EST documented in this encounter Results * CHLAMYDIA/N. GONORRHOEAE AMPLIFIED RNA (07/25/2023 15:40 EST) Neisseria gonorrhoeae Result Negative Negative 07/26/2023 13:59 EST [facility] Chlamydia trachomatis Result Negative Negative 07/26/2023 13:59 EST [facility] Urine URINE / Unknown 07/25/2023 1 5:40 EST 07/25/2023 22:11 EST Narrative [facility] - 07/26/2023 13:59 EST A first catch urine specimen is acceptable for detection of Gonorrhea and Chlamydia, but might detect up to 10% fewer infections when compared with vaginal and endocervical swab samples. us Provider Outr Resulting Lab MICROBIOLOGY - GENER AL ORDERABLES Final Result [facility] [address] [place] [address] documented in this encounter Visit Diagnoses Not on filedocumented in this encounter Care Teams Patent Attorney Relationship Specialty Start Date End Date [facility] Internal Medicine, [address] [place], [place] [address] PCP - General 11/03/15 10/01/23 Unknown, Provider, [place] [address] PCP - General 10/02/23 4 None, Provider PCP - General 05/09/24 documented as of this encounter
--- OUTSIDE RECORDS SUMMARY | 2024-09-16 01:34 | XMS_ITS | Encounter Summary ---
Author Organization [facility] Address [address] [place] [address] Care Team Providers Care Android Architect Name Role Phone [facility] Internal Medicine, Primary Care Provi darrel Reason for Referral * PUBLIC OPINION SURVEY TAKER (Routine/Next Available) - Specialty Report Received Specialty Diagnoses / Procedures [facility] Referred To Contact Diagnoses resulting from assisted reproductive technology in first trimester Procedures OB FIRST TRIMESTER (LESS THAN 14 WEEKS) TRANSVAGINAL Sue Hyman MD Phone: tel: fax: [facility] PUBLIC ADMINISTRATION TEACHER/BALBIR Referral ID Status Reason Start Date Expiration Date V isits Requested Visits Authorized [id number] Specialty Report Received 07/11/2021 1 1 Reason for Visit * Reason Onset Date Comments Coordination Of Care 07/11/2021 Encounter Details Date Type Department Care Team (Late st Contact Info) Description 07/11/2021 Telephone [facility] [address] [place] [address] Meliza Moise RN Coordination Of Care Social History Tobacco Use Types Packs/Day [...] Refills Last Filled Start Date End Date estradioL (ESTRACE) 1 mg tablet Take by mouth daily as directed. Use to finish estradiol taper. 6 Tablet 07/27/2021 4 progesterone in oil 50 mg/mL injection Inject 1.5 mL into the muscle daily. 3 Each 2 07/27/2021 4 estradioL (ESTRACE) 1 mg tablet Take by mouth daily as directed. Use to finish estradiol taper. 6 Tablet 07/27/2021 1 estradioL (ESTRACE) 1 mg tablet Take 3 Tablets by mouth 2 times daily. 90 Tablet 07/12/2021 1 documented in this encounter Miscellaneous Notes * Addendum Note - Belkys Khan RN - 07/27/2021 1457 ESTAddended by: BELKYS KHAN on: 07/27/2021 14:57 Modules accepted: Orders * Addendum Note - Belkys Khan RN - 07/27/2021 1443 ESTAddended by: BELKYS KHAN on: 07/27/2021 14:43 Modules accepted: Orders * Addendum Note - Meliza Moise RN - 07/14/2021 1327 ESTAddended by: MELIZA MOISE on: 07/14/2021 13:27 Modules accepted: Orders * Telephone Encounter - Meliza Moise RN - 07/14/2021 1327 EST HCG ordered to be done prior to US for reassurance. * Addendum Note - Meliza Moise RN - 07/12/2021 1017 ESTAddended by: MELIZA MOISE on: 07/12/2021 10:17 Modules accepted: Orders * Telephone Encounter - Meliza Moise RN - 07/12/2021 1016 EST Refill of estrace ordered. Pt has unopened and unexpired progesterone vials remaining from previouscycles. * Telephone Encounter - Meliza Moise RN - 07/11/2021 1003 EST Advised pt of hCG level. Component Latest Ref Rng & Units 07/11/2021 Quant Beta HCG, Preg <5 mIU/mL 442 (H) No need for further draws, ready to schedule US after 07/21. documented in this encounter Plan of Treatment Not on file documented as of this encounter Results * US OB FIRST TRIMESTER (LESS THAN 14 WEEKS) TRANSVAGINAL (07/26/2021 8:44 EST) Anatomical Region Laterality Modality Pelvis Ultrasound 07/26/2021 8:30 EST Narrative 07/26/2021 14:45 EST Indication Early Assessment; two blastocyst transfer on day 5. History ======= General History Height 160 cm Height (ft) ?5 ft Height (in) ?3 in Previous Outcomes ?3 Para ?? 0 Berg children born (T) ?0 Berg children born (P) ?0 Abortions (A) ??2 Berg living children (L) ??0 Maternal Assessment Height 160 cm Height (ft) ?5 ft Height (in) ?3 in Physical Exam Initial weight 64 kg Initial weight (lb) ?141 lb Initial BMI ?24.98 kg/m?? Number of gestational sacs: 1. Dating ======= Conception: ?Invitro fertilization Method of dating: ??based on the IVF / ET date Embryo transfer on: ?06/28/2021 IVF / ET ?? 5 d GA by IVF / ET 6 w + 5 d KYLAH by IVF / ET: ?? 03/16/2022 Ultrasound examination on: 07/26/2021 GA by U/S based upon: ??CRL GA by U/S ??6 w + 6 d KYLAH by U/S: ?03/15/2022 Assigned: ??Dating performed on 07/26/2021, based on the IVF / ET date Assigned GA ?6 w + 5 d Assigned KYLAH: ??03/16/2022 Assessment Gestational sac: ?? Visualized Location: ??Intrauterine Yolk sac: ??Visualized YS mean ?2.6 mm ??<1% Grisolia Amniotic sac: ??Visualized Embryo: ?Visualized CRL ?8.7 mm ??98% 6w 6d Hadlock Cardiac activity: ??Present FHR ?134 bpm Maternal Structures Uterus / Cervix Uterus: ?Anteverted Uterus details: ?No abnormalities detected. Appears normal Cervix: ?Appears normal Ovaries / Tubes / Adnexa Rt ovary: ??Visualized, normal appearance Rt ovary other findings: ?? Limited view of ovary, seen previously Lt ovary: ??Visualized, normal appearance Lt ovary other findings: ?? Limited view of ovary, seen previously Pouch of Tom / Other Structures Cul de Sac: ?Appears normal Free fluid: ?No free fluid visualized Method ======== Transvaginal ultrasound examination, probe # 8. View: Good view. Impression 1st Trimester OB scan ,transvaginal +[id number] Single viable intrauterine (IUP) , size equals menstrual dates. Follow-up Repeat OB ultrasound in 2 weeks. Comment ========= Results discussed w/patient O09.81 supervision of resulting from assisted reproductive technology. DATE OF SERVICE: 07/26/2021 Procedure Note Grace Gupta MD - 07/26/2021 Indication Early Assessment; two blastocyst transfer on day 5. History ======= General History Height 160 cm Height (ft) 5 ft Height (in) 3 in Previous Outcomes 3 Para 0 Berg children born (T) 0 Berg children born (P) 0 Abortions (A) 2 Berg living children (L) 0 Maternal Assessment Height 160 cm Height (ft) 5 ft Height (in) 3 in Physical Exam Initial weight 64 kg Initial weight (lb) 141 lb Initial BMI 24.98 kg/m?? Number of gestational sacs: 1. Dating ======= Conception: Invitro fertilization Method of dating: based on the IVF / ET date Embryo transfer on: 06/28/2021 IVF / ET 5 d GA by IVF / ET 6 w + 5 d KYLAH by IVF / ET: 03/16/2022 Ultrasound examination on: 07/26/2021 GA by U/S based upon: CRL GA by U/S 6 w + 6 d KYLAH by U/S: 03/15/2022 Assigned: Dating performed on 07/26/2021, based on the IVF / ET date Assigned GA 6 w + 5 d Assigned KYLAH: 03/16/2022 Assessment Gestational sac: Visualized Location: Intrauterine Yolk sac: Visualized YS mean 2.6 mm <1% Grisolia Amniotic sac: Visualized Embryo: Visualized CRL 8.7 mm 98% 6w 6d Hadlock Cardiac activity: Present FHR 134 bpm Maternal Structures Uterus / Cervix Uterus: Anteverted Uterus details: No abnormalities detected. Appears normal Cervix: Appears normal Ovaries / Tubes / Adnexa Rt ovary: Visualized, normal appearance Rt ovary other findings: Limited view of ovary, seen previously Lt ovary: Visualized, normal appearance Lt ovary other findings: Limited view of ovary, seen previously Pouch of Tom / Other Structures Cul de Sac: Appears normal Free fluid: No free fluid visualized Method ======== Transvaginal ultrasound examination, probe # 8. View: Good view. Impression 1st Trimester OB scan ,transvaginal +[id number] Single viable intrauterine (IUP) , size equals menstrualdates. Follow-up Repeat OB ultrasound in 2 weeks. Comment ========= Results discussed w/patient O09.81 supervision of resulting from assisted reproductivetechnology. DATE OF SERVICE: 07/26/2021 Sue Hyman MD [facility] OB ORDERABLES Leticia l Result documented in this encounter Visit Diagnoses Diagnosis resulting from assisted reproductive technology in first trimester- Primary resulting from assisted reproductive technology in first trimester documented in this encounter Discontinued Medications Medication Sig Discontinue Reason Start Date End Da te norgestimate-ethinyl estradioL (ORTHO-CYCLEN, 28,) 0.25-35 mg-mcg per tablet Take 1 Tablet by mouth daily. Take active tabs continuously. Discard inactive tabs. 05/03/2021 07/12/2021 estradioL (ESTRACE) 1 mg tablet Take 3 Tablets by mouth 2 times daily. 05/24/2021 07/27/2021 leuprolide (LUPRON) 1 mg/0.2 mL kit Inject 20 units into the skin. Decrease to 10 units when directed. 05/24/2021 07/27/2021 progesterone in oil 50 mg/mL injection Inject 1.5 mL into the muscle daily. 05/24/2021 07/27/2021 estradioL (ESTRACE) 1 mg tablet Take 3 Tablets by mouth 2 times daily. 07/12/2021 07/27/2021 estradioL (ESTRACE) 1 mg tablet Take by mouth daily as directed. Use to finish estradiol taper. Reorder 07/27/2021 07/27/2021 documented as of this encounter Care Teams Android Architect Relationship Specialty Start Date End Date [facility] Internal Medicine, [facility] [address] [place] [address] PCP - General 11/03/15 10/01/23 documented as of this encounter
--- OUTSIDE RECORDS SUMMARY | 2024-09-16 01:34 | XMS_ITS | Encounter Summary ---
Author Organization 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) - Closed Specialty Diagnoses / Procedures Referred By Contac t Referred To Contact Diagnoses Multigravida of advanced maternal age in second trimester Procedures OB DETAILED Daniela Campos APN Phone: tel: fax: [facility] Referral ID Status Reason Start Date Expiration Date Visits Re quested Visits Authorized [id number] Closed 09/04/2021 1 1 Reason for Visit * 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) - Closed Specialty Diagnoses / Procedures Referred By Contac t Referred To Contact Diagnoses Multigravida of advanced maternal age in second trimester Procedures OB DETAILED Daniela Campos APN Phone: tel: fax: [facility] Referral ID Status Reason Start Date Expiration Date Visits Re quested Visits Authorized [id number] Closed 09/04/2021 1 1 Encounter Details Date Type Department Care Team (Latest Contact Info) Description 11/03/2021 8:56 EDT - 11/03/2021 23:59 EDT Hospital Encounter [facility] Obstetrics Services - [facility] [address] [place] [address] Multigravida of advanced maternal age in second trimester Discharge Disposition: Home or Self Care [...] Priority Date/Time Associated Diagnosis Comments US OB DETAILED Routine 11/03/2021 11:04 EDT Multigravida of advanced maternal age in second trimester documented in this encounter Results * US OB DETAILED (11/03/2021 11:04 EDT) Anatomical Region Laterality Modality Pelvis Ultrasound 11/03/2021 10:0 8 EDT Narrative 11/03/2021 11:25 EDT Indication Advanced maternal age IVF. History ======= General History Height 160 cm Height (ft) ?5 ft Height (in) ?3 in Previous Outcomes ?3 Para ?? 0 Lua children born (T) ?0 Lua children born (P) ?0 Abortions (A) ??2 Lua living children (L) ??0 Maternal Assessment Height 160 cm Height (ft) ?5 ft Height (in) ?3 in Physical Exam Initial weight 64 kg Initial weight (lb) ?141 lb Initial BMI ?24.98 kg/m?? IVF Details Mat. age ?? 36 yrs Number of fetuses: 1. Dating ======= Conception: ?Invitro fertilization Embryo transfer on: ?06/28/2021 IVF / ET ?? 5 d GA by IVF / ET 21 w + 0 d KYLAH by IVF / ET: ?? 03/16/2022 Stated Dating on: ?07/16/2021 GA at stated dating date 6 w + 5 d GA by stated dating ??22 w + 3 d KYLAH by stated dating: ?03/06/2022 Ultrasound examination on: 11/03/2021 GA by U/S based upon: ??AC, BPD, Femur, HC GA by U/S ??20 w + 5 d KYLAH by U/S: ?03/18/2022 Assigned: ??Dating performed on 07/26/2021, based on the IVF / ET date Assigned GA ?21 w + 0 d Assigned KYLAH: ??03/16/2022 General Evaluation Cardiac activity: Present. FHR 156 bpm. movements: visualized. Presentation: breech. Placenta: posterior. Umbilical cord: Cord vessels: 3 vessel cord. Cord insertion: placental insertion: normal. Amniotic fluid: Amount of AF: normal. Biometry Biometry BPD ?47.7 mm 26% 20w 3d Hadlock OFD ?64.1 mm 77% 21w 5d Gisele HC 178.2 mm ?28% 20w 2d [place] AC 164.6 mm ?60% 21w 4d Hadlock Femur ??33.6 mm 45% 20w 5d Gisele Cerebellum tr ??23.5 mm 83% 22w 4d Torres CM 5.4 mm ??54% Nicolaides Nuchal fold ?4.96 mm Humerus ?33.4 mm 57% 21w 2d Gisele EFW ?390 g Calculated by: Hadlock ([id number]) EFW (lb) ?? 0 lb EFW (oz) ?? 14 oz Cephalic index 0.74 ?10% Nicolaides HC / AC ?1.08 ?10% Hadlock FL / BPD ?? 0.70 ?32% Hadlock FL / AC ?0.20 ?8% Hadlock FHR ?156 bpm Head / Face / Neck Marketing Developer 6.9 mm Nasal bone 7.2 mm Extremities / Bony Struc Radius 29.2 mm 54% 21w 1d Gisele Ulna ?? 32.1 mm 67% 22w 1d Gisele Tibia ??30.9 mm 64% 21w 3d Gisele Fibula 30.8 mm 48% 21w 0d Gisele Foot ?? 36.2 mm 59% Chitty Anatomy Cranium: ?? normal Lateral ventricles: ?normal Choroid plexus: ?normal Midline falx: ??normal Cavum septi pellucidi: normal Cerebellum: ?normal Cisterna magna: ?normal Parenchyma: ?normal Cerebellar lobes: ??normal Vermis: ?normal Neck: ??normal Nuchal fold: ?? normal Lips: ??normal Profile: ?? normal Nose: ??normal Maxilla: ?? normal Mandible: ??normal 4-chamber view: ?normal RVOT: ??normal LVOT: ??normal Situs: normal Aortic arch: ?? normal SVC: ?? normal IVC: ?? normal 3-vessel view: normal 0-bjrgnw-qctgkks view: normal Rt lung: ?? normal Lt lung: ?? normal Diaphragm: normal Cord insertion: ?normal Stomach: ?? normal Bladder: ?? normal Genitals: ??normal Abdom. wall: ?? normal Rt kidney: normal Lt kidney: normal Liver: normal Cervical spine: ?normal Thoracic spine: ?normal Lumbar spine: ??normal Sacral spine: ??normal Skeleton: ??normal Arms: ??normal Legs: ??normal Rt arm: ?normal Lt arm: ?normal Rt hand: ?? normal Lt hand: ?? normal Rt leg: ?normal Lt leg: ?normal Rt foot: ?? normal Lt foot: ?? normal Gender: ?female Wants to know gender: ??yes Aneuploidy Screening Age ?36 yrs Echogenic focus: ?? no Include: ?? intracardiac echogenic focus Include: ?? ventriculomegaly Include: ?? nuchal fold Include: ?? echogenic bowel Include: ?? mild hydronephrosis Ventriculomegaly: ??no Nuchal fold: ?? normal Echogenic bowel: ?? no Pyelectasis: ?? no Short femur: ?? no Include: ?? short humerus Include: ?? nasal bone Short humerus: no Nasal bone: ?present Display risk: ??Risk at time of screening Background risk at time of screening ?? 312 Background risk at term ?363 Adjusted risk at time of screening 842 Adjusted risk at term ??978 Maternal Structures Uterus / Cervix Uterus: ?Appears normal Cervix: ?Appears normal Ovaries / Tubes / Adnexa Rt ovary: ??Visualized, normal appearance Rt ovary D1 ?3.0 cm Rt ovary D2 ?2.0 cm Rt ovary D3 ?1.6 cm Rt ovary mean ??2.2 cm Rt ovary vol ?? 5.0 cm cubed Lt ovary: ??Ovary not visualized, no adnexal abnormality seen Method ======== Transabdominal ultrasound examination, Voluson E10. View: Sufficient. Impression 14500 Obstetrical ultrasound with and maternal evaluation, including detailed anatomic examination This is a lua gestation. Biometry is consistent with menstrual dating. Anatomy appears normal as noted above; however, ultrasound cannot detect all anomalies. As per the [facility] guidelines, the following were evaluated and were normal: the cerebellum (including lobes and vermis), facial profile, the chest (including examination for masses, effusion, integrity of both sides of the diaphragm and lung parenchyma), abdomen for ascites, 12-long bones with normal architecture/position of limbs, hands and feet, placental insertion site of the umbilical cord and placenta for masses. The amniotic fluid volume is normal. There is trunk and extremity movement noted. Follow-up Follow-up as clinically indicated. DATE OF SERVICE: 11/03/2021 Procedure Note Autumn Ramirez MD - 11/03/2021 Indication Advanced maternal age IVF. History ======= General History Height 160 cm Height (ft) 5 ft Height (in) 3 in Previous Outcomes 3 Para 0 Lua children born (T) 0 Lua children born (P) 0 Abortions (A) 2 Lua living children (L) 0 Maternal Assessment Height 160 cm Height (ft) 5 ft Height (in) 3 in Physical Exam Initial weight 64 kg Initial weight (lb) 141 lb Initial BMI 24.98 kg/m?? IVF Details Mat. age 36 yrs Number of fetuses: 1. Dating ======= Conception: Invitro fertilization Embryo transfer on: 06/28/2021 IVF / ET 5 d GA by IVF / ET 21 w + 0 d KYLAH by IVF / ET: 03/16/2022 Stated Dating on: 07/16/2021 GA at stated dating date 6 w + 5 d GA by stated dating 22 w + 3 d KYLAH by stated datin03/06/2022 Ultrasound examination on: 11/03/2021 GA by U/S based upon: AC, BPD, Femur, HC GA by U/S 20 w + 5 d KYLAH by U/S: 03/18/2022 Assigned: Dating performed on 07/26/2021, based on the IVF / ET date Assigned GA 21 w + 0 d Assigned KYLAH: 03/16/2022 General Evaluation Cardiac activity: Present. FHR 156 bpm. movements: visualized. Presentation: breech. Placenta: posterior. Umbilical cord: Cord vessels: 3 vessel cord. Cord insertion: placentalinsertion: normal. Amniotic fluid: Amount of AF: normal. Biometry Biometry BPD 47.7 mm 26% 20w 3d Hadlock OFD 64.1 mm 77% 21w 5d Gisele HC 178.2 mm 28% 20w 2d [place] AC 164.6 mm 60% 21w 4d Hadlock Femur 33.6 mm 45% 20w 5d Gisele Cerebellum tr 23.5 mm 83% 22w 4d Torres CM 5.4 mm 54% Nicolaides Nuchal fold 4.96 mm Humerus 33.4 mm 57% 21w 2d Gisele EFW 390 g Calculated by: Hadlock ([id number]) EFW (lb) 0 lb EFW (oz) 14 oz Cephalic index 0.74 10% Nicolaides HC / AC 1.08 10% Hadlock FL / BPD 0.70 32% Hadlock FL / AC 0.20 8% Hadlock FHR 156 bpm Head / Face / Neck Marketing Developer 6.9 mm Nasal bone 7.2 mm Extremities / Bony Struc Radius 29.2 mm 54% 21w 1d Gisele Ulna 32.1 mm 67% 22w 1d Gisele Tibia 30.9 mm 64% 21w 3d Gisele Fibula 30.8 mm 48% 21w 0d Gisele Foot 36.2 mm 59% Chitty Anatomy Cranium: normal Lateral ventricles: normal Choroid plexus: normal Midline falx: normal Cavum septi pellucidi: normal Cerebellum: normal Cisterna magna: normal Parenchyma: normal Cerebellar lobes: normal Vermis: normal Neck: normal Nuchal fold: normal Lips: normal Profile: normal Nose: normal Maxilla: normal Mandible: normal 4-chamber view: normal RVOT: normal LVOT: normal Situs: normal Aortic arch: normal SVC: normal IVC: normal 3-vessel view: normal 3-exifzx-elpxuff view: normal Rt lung: normal Lt lung: normal Diaphragm: normal Cord insertion: normal Stomach: normal Bladder: normal Genitals: normal Abdom. wall: normal Rt kidney: normal Lt kidney: normal Liver: normal Cervical spine: normal Thoracic spine: normal Lumbar spine: normal Sacral spine: normal Skeleton: normal Arms: normal Legs: normal Rt arm: normal Lt arm: normal Rt hand: normal Lt hand: normal Rt leg: normal Lt leg: normal Rt foot: normal Lt foot: normal Gender: female Wants to know gender: yes Aneuploidy Screening Age 36 yrs Echogenic focus: no Include: intracardiac echogenic focus Include: ventriculomegaly Include: nuchal fold Include: echogenic bowel Include: mild hydronephrosis Ventriculomegaly: no Nuchal fold: normal Echogenic bowel: no Pyelectasis: no Short femur: no Include: short humerus Include: nasal bone Short humerus: no Nasal bone: present Display risk: Risk at time of screening Background risk at time of screening 312 Background risk at term 363 Adjusted risk at time of screening 842 Adjusted risk at term 978 Maternal Structures Uterus / Cervix Uterus: Appears normal Cervix: Appears normal Ovaries / Tubes / Adnexa Rt ovary: Visualized, normal appearance Rt ovary D1 3.0 cm Rt ovary D2 2.0 cm Rt ovary D3 1.6 cm Rt ovary mean 2.2 cm Rt ovary vol 5.0 cm cubed Lt ovary: Ovary not visualized, no adnexal abnormality seen Method ======== Transabdominal ultrasound examination, [place] E10. View: Sufficient. Impression [id number] Obstetrical ultrasound with and maternal evaluation, includingdetailed anatomic examination This is a lua gestation. Biometry is consistent with menstrual dating. Anatomy appears normal as noted above; however, ultrasound cannotdetect all anomalies. As per the [facility] guidelines, the following were evaluated and were normal:the cerebellum (including lobes and vermis), facial profile, the chest(including examination for masses, effusion, integrity of both sides ofthe diaphragm and lung parenchyma), abdomen for ascites, 12-long boneswith normal architecture/position of limbs, hands and feet, placentalinsertion site of the umbilical cord and placenta for masses. The amniotic fluid volume is normal. There is trunk and extremitymovement noted. Follow-up Follow-up as clinically indicated. DATE OF SERVICE: 11/03/2021 us Daniela ANGELESN IMG US OB ORDERABLES Leticia kelly Result documented in this encounter Visit Diagnoses Diagnosis Multigravida of advanced maternal age in second trimester documented in this encounter Care Teams Foundation Digger Relationship Specialty Start Date End Date [facility] Internal Medicine, [facility] [address] [place] [address] PCP - General 11/03/15 10/01/23 documented as of this encounter
--- OUTSIDE RECORDS SUMMARY | 2024-09-16 01:34 | XMS_ITS | Encounter Summary ---
Author Organization [facility] Address [address] [place] [address] Care Team Providers Care Oncology Nurse Navigator Name Role Phone Unknown, Provider Primary Care Provider Unava ilable Reason for Visit * Auth/Cert (Routine) Specialty Diagnoses / Procedures [facility]erred To Contact Diagnoses Uterine polyp Uterine polyp [N84.0] Procedures CT HYSTEROSCOPY BX ENDOMETRIUM&/POLYPC W/WO D&C HYSTEROSCOPY, POLYPECTOMY, DILATION AND CURETTAGE Referral ID Status Reason Start Date Expiration Date Visits Re quested Visits Authorized [id number] 1 1 Encounter Details Date Type Department Care Team (Late st Contact Info) Description 10/11/2023 10:55 EST - 10/11/2023 12:15 EST Surgery [facility] OR [address] [place] [id number] Laila Whitfield MD [address] [place] [address], [facility] Level [address] [place] [address] HYSTEROSCOPY, POLYPECTOMY, DILATION AND CURETTAGE [66227 (CPT??)] Surgery Details Date/Time Status Location OR Service Patient Class Case Cl ass Case Type Trauma Case? 10/11/2023 1055 Posted [facility] OR [facility] Gynecology [facility] Outpatient Surgery H - Elective Panel 1 Procedure LRB Anes Op Region Wound Class Comments HYSTEROSCOPY, POLYPECTOMY, DILATION AND CURETTAGE N/A Patient Choice Vagina Class I/ Clean Surgeon Surgeon Role Service Panel Laila Whitfield MD Primary Gynecology 1 Francisco Sharma MD Fellow Gynecology 1 documented in this encounter Social History Tobacco [...] Sign Reading Time Taken Comments Blood Pressure 108/77 10/11/2023 1028 EST Pulse 86 10/11/2023 1028 EST Temperature 36.2 ??C (97.2 ??F) 10/11/2023 1028 EST Respiratory Rate 12 10/11/2023 1028 EST Oxygen Saturation 98% 10/11/2023 1028 EST Inhaled Oxygen Concentration - - Weight [...] Comments: anembryonic following FET 1 12/2018 SAB Social History Family history Social [...] of Service: 10/11/2023 Surgeon: Laila Whitfield MD Cota: Francisco Lemus MD Procedure: Hysteroscopy, dilation and [...] 10/15/2023 10:3 2 EST us Scan 2 Steel Fitter PROCEDURE/MINOR SURGICAL OR DERABLES Final Result * SURGICAL PATHOLOGY (10/11/2023 12:43 EST) Note to Patient The following pathology results have been interpreted by your pathologist and may be available to you before your health provider has had the opportunity to review them. Please allow time for your provider to receive these results and explore management options, if applicable. 10/15/2023 14:33 [facility] Final Diagnosis A. ENDOMETRIUM, CURETTAGE: - Late secretory endometrium with extensive breakdown suggestive of menstrual-type endometrium. See comment. 10/15/2023 14:33 [facility] Diagnosis Comment Assistant Corporate Controller slides of this case were reviewed at the intradepartmental consultation conference. 10/15/2023 14:33 [facility] Attestation By the signature below, the attending physician certifies that they have 1) personally conducted a gross and/or microscopic examination of the described specimen(s), and/or personally interpreted the results of laboratory testing of the described specimen(s), and 2) personally rendered or confirmed the above diagnosis. 10/15/2023 14:33 [facility] at 1433 Clinical History Uterine polyp 10/15/2023 14:33 EST [facility] Gross Description A. Received fresh labelled with proper patient identification (initials G, V) and uterus curettings is a 1.5 x 1.0 x 0.3 cm aggregate of pink-red soft tissue. The specimen is entirely submitted in A1. SHERRILL SAMAYOA(ASCP) 10/11/2023 15:51 10/15/2023 14:33 EST [facility] Performing Lab [facility] 10/15/2023 14:33 EST [facility] Scanned Images 10/15/2023 14:33 [facility] Tissue ENDOMETRIAL STRUCTURE / Unknown 10/11/2023 12:43 EST 10/11/2023 15:01 EST Comment:Pre-op diagnosis: Uterine polyp [N84.0] Laila Whitfield MD PATHOLOGY ORDERABLES Fin al Result Performing Organization Address [facility] [[email or web address]] Co de Phone Number [facility] [address] [place] [phone] * TEST, URINE (10/11/2023 9:44 EST) Test, Urine Negative Negative 10/11/2023 10:05 EST [facility] Comment:False negative resul ts may occur in women who are beyond 5-8 weeks gestation. Diagnosis of should be based on a correlation of test results with typical clinical signs and symptoms. Urine URINE / Unknown Urine Collect / Unknown 10/11/2023 9:44 EST 10/11/2023 9:58 EST us Elroy Everett MD URINALYSIS ORDERABLES Final R esult Performing Organization Address City/[facility]/ZIP Co de Phone Number [facility] [address] [place] [phone] documented in this encounter Visit Diagnoses Diagnosis Uterine polyp- Primary Polyp of corpus uteri Uterine polyp Polyp of corpus uteri documented [...] (only) Rate Documented 10/11/2023 12:57 EST 75 mL/hr naloxone (NARCAN) injection 0.2 mg 0.2 mg, intravenous, PRN, Starting on Sat10/11/23 at 1250, Until Sat10/11/23 at 1556, Opioid Reversal, Routine, Recovery (only) sodium chloride 0.9 % irrigation PRN, Starting on Sat10/11/23 at 1235, Until Sat10/11/23 at 1254, Routine, Intraprocedure Given 10/11/2023 12:35 EST 3,000 mL Given 10/11/2023 12:22 EST 1,000 mL documented in this encounter Discontinued Medications Medication [...] 1031 (New Bag - Prov ider: Sarai Aquino RN)1207 (Continued by Anesthesia - Provider: Roxane Agosto [...] naloxone (NARCAN) injection 0.2 mg 1 2023 Diet Count Last Ordered Date First Orde red Date DISCHARGE DIET 1 10/11/2023 Nursing Count Last Ordered Date First Orde red Date ACTIVITY INSTRUCTIONS 1 10/11/2023 Discharge Count Last Ordered Date First Orde red Date DISCHARGE PATIENT 1 10/11/2023 documented in this encounter Care Teams Oncology Nurse Navigator Relationship Specialty Start Date End Date Unknown, Provider, PCP - General 10/02/23 05/08/24 documented as of this encounter
--- OUTSIDE RECORDS SUMMARY | 2024-09-16 01:34 | XMS_ITS | Encounter Summary ---
Author Organization [facility] Address [address] [place] [address] Care Team Providers Care Field Care Coordinator Name Role Phone Internal Medicine Primary Care Provi darrel Encounter Details Date Type Department Care Team (Latest Contact Info) Description 09/30/2023 9:50 EST - 09/30/2023 23:59 EST Hospital Encounter [facility] Pre-Surgical Testing [address] [place] [address] Discharge Disposition: Home or Self [...] Sign Reading Time Taken Comments Blood Pressure - - Pulse - - Temperature - - Respiratory Rate - - Oxygen Saturation - - Inhaled Oxygen Concentration - - Weight 59 kg (130 lb) 09/30/2023 1051 EST Height 160 cm (5' 3) 09/30/2023 1051 EST Body Mass Index 23.03 09/30/2023 1051 EST documented in this encounter Functional Status [...] or Self Care documented in this encounter OR Notes * Preprocedure Instructions - Robbie Ko RN - 09/30/2023 0950 EST Reanna Espinoza has been instructed as follows regarding medication administration for the day of the scheduled procedure. Date of Surgery: 10/11/23 Instructions for Taking Medications Day of Surgery Medication Dose and frequency Last Dose Hold Day of Surgery Take Day of Surgery estradioL (ESTRACE) 1 mg tablet Take by mouth daily as directed. Use to finish estradiol taper. Patient not taking: Reported on 09/26/2023 Not Taking progesterone in oil 50 mg/mL injection Inject 1.5 mL into the muscle daily. Patient not taking: Reported on 09/26/2023 Not Taking Stop all vitamins and supplements 7 days prior to surgery. Nonsteroidal anti-inflammatories (NSAIDS; i.e. ibuprofen, naproxen, indomethacin, ketorolac, Motrin) stop 3 days prior to surgery. Acetaminophen (Tylenol) can be taken prior to surgery if needed. Preparing for surgery: Fasting- Follow the eating and drinking instructions below unless otherwise instructed by your surgeon STOP all solid FOOD and LIQUIDS Containing Fats, including Milk, at midnight the night before surgery You May have FAT FREE CLEAR liquids until 2 hours before your scheduled time to arrive to the hospital on the day of surgery. Acceptable clear liquids include Water, apple juice, and sports drinks (Gatorade?? or Powerade?? avoid red and purple). On the day of your procedure, no gum, mints, lozenges or hard candy. Children under 1 year of age may have breast milk up to 4 hours and formula up to 6 hours before their procedure. Pedialyte?? is also an acceptable clear liquid for children. Safety Infection prevention Shower with an ANTIBACTERIAL SOAP the night before surgery and the morning of surgery. If you were given scrub sponges, use those also, scrubbing well over the area indicated by your surgeon. Do not shave your surgical site for 3 days prior to surgery. Protect Surgical Site from injury such as cuts, bruising or roberts After your morning shower avoid any personal care products such as creams, lotion, powders, deodorant, makeup, hairspray, perfumes or colognes. Ride home We require you have a responsible Adult to drive you home after surgery or to accompany you in getting home via Taxi or Bus Your Family Member/Ride Home should stay at the hospital during the procedure until you are discharged. If your ride can't stay in the hospital, they still need to come in to pick you up to assist with medication hand picker from pharmacy, review of discharge instructions and surgical consult. We ask that your ride stay within 15 minutes of the hospital for hand picker. CPAP/BiPAP Bring your CPAP or BiPAP machine in with you on the day of your surgery. Nail gabonese and Jewelry Remove all finger nail gabonese and makeup before surgery Remove all jewelry including rings and Body Piercings before coming in for Surgery. Glasses and Contacts Wear glasses on the Day of surgery. For eye surgeries avoid contacts for 7 days prior to surgery, unless otherwise instructed by your surgeon. Full beards Shaving is optional, certain aspects of the anesthetic management can be made easier without a fullbeard. Smoking Stop smoking tobacco and marijuana prior to surgery as much as possible with a minimum of 24 hours prior to surgery. Medications Inhalers Bring your inhalers in with you on the day of your surgery. Bowel cleansing Follow the instructions for bowel cleansing given to you by your surgeon. Once you start, drink lots of clear liquids, stopping them at the time your surgeon told you to stop. It would be best to stay at home while doing the bowel cleansing. Legal Guardianship BRING Proof of Guardianship on Day of Surgery. Legal Guardian is to be available on the Day of Surgery by Telephone if not physically present on the Day of Surgery. Surgical and/or other consents will be signed by Legal Guardian prior to the Day of Surgery if possible. Call your surgeon IF: You become ill before your surgery. You have any new skin problems near the area where your surgery will be, such as a rash, blister, or infection. You have any questions. Your surgeon may have given you other instructions to prepare for surgery. Please follow these and if you have questions call your surgeon's office. Day of surgery Identification Please bring a photo ID, insurance card and any other information needed for your surgery. Arrival General Arrival Time is 2 hours prior to your surgery time. Medications Take as directed above with a small sip of water on day of surgery. Bring a list of medications you take on the day of surgery. Leave medications at home. Clothing Wear casual, loose fitting and comfortable clothing. We recommend you wear/bring inexpensive (avoidsilks, etc.) clothing on Day of Surgery. For arm and hand surgery wear a zip up or button up shirt with short sleeves. For eye surgery, do not wear a shirt that pulls over the head unless it has a wide neck opening. Bring a hat with a visor or a pair of sunglasses to wear home after surgery. Medical Devices Bring any medical devices that you would normally use during the course of your day. These items include, but are not limited to: insulin pumps, mobility aids, CPAP. Valuables Bring only money you may need for you hospital co-pay and to purchase any prescriptions on the way home. Let the person driving you home hold you're your money while you are in surgery. Leave jewelry at home Leave contact lenses at home. Wear your eye glasses and bring your eye glass case. Leave valuable items at home. Ask a family member to bring them in after you have been admitted to the inpatient unit if possible. Equipment Remember to bring pillows for the car ride home to elevate your arm or leg (for arm/leg surgery). Bring Crutches if needed. Use the Volumetric Production Engineer given to you by your surgeon or nurse. Starting 2 weeks prior to your surgery use it 2 times a day, 10 times each use. Bring it with you on the day of your surgery. Visitation Per our Welcoming Policy ???Unit nursing staff may have to ask patients and families to limit numbers of family members at the bedside when it impacts the environment of care?? Typically two visitors are allowed in the Preop and Recovery areas. Bring plastic bags and paper towels in the car for the Trip Home. Contact information Patient/Family given Preop Contact Numbers appropriate to campus of surgery. For Day of Surgery: [facility]: [phone]; [facility]; [phone]. Prior to Day of Surgery call: [phone]. Pre-op toll Free Number . More information can also be found on our website: [email or web address] documented in this encounter Plan of Treatment Not on file documented as of this encounter Visit Diagnoses Not on filedocumented in this encounter Care Teams Field Care Coordinator Relationship Specialty Start Date End Date [facility] Internal Medicine, [address] [place] [address] PCP - General 11/03/15 10/01/23 documented as of this encounter
--- OUTSIDE RECORDS SUMMARY | 2024-09-16 01:34 | XMS_ITS | Encounter Summary ---
Author Organization [facility] Address [address] [place] [address] Care Team Providers Care Parts Washer Name Role Phone [facility] Internal Medicine, Primary Care Provi darrel Encounter Details Date Type Department Care Team (Late st Contact Info) Description 07/07/2021 8:30 EST Phlebotomy Only [facility] ED [facility] 2 Phlebotomy [address], [place] [id number] Tool Maker, Acc Phlebotomy Miscarriage Social History Tobacco Use [...] Associated Diagnosis Comments QUANT BETA HCG, Routine 07/07/2021 8:32 EST Miscarriage documented in this encounter Results * (ABNORMAL) QUANT BETA HCG, (07/07/2021 8:32 EST) Beta HCG Quant, 73(H) <5 mIU/mL 07/07/2021 9:54 EST [facility] Comment: NOTE: : Negative: Less than 5mIU/mL Indeterminant: Between 5 and 25 mIU/mL, recommend repeat testing in 48 hours Positive: Greater than 25 mIU/mL The results of this assay can be falsely lowered due to the consumption of Biotin. Blood VENOUS BLOOD / Unknown Venipuncture / Unknown 07/07/2021 8:32 EST 07/07/2021 9:04 EST Micah Phillip MD CHEMISTRY & BLOOD GAS NIKOLAY VALENCIA Final Result [facility] [address] [place] [address] documented in this encounter Visit Diagnoses Diagnosis Miscarriage Unspecified spontaneous without mention of complication documented in this encounter Care Teams Parts Washer Relationship Specialty Start Date End Date [facility] Internal Medicine, [address] [place] [address] PCP - General 11/03/15 10/01/23 documented as of this encounter
--- OUTSIDE RECORDS SUMMARY | 2024-09-16 01:34 | XMS_ITS | Encounter Summary ---
Author Organization [facility] Address [address] [place] [address] Care Team Providers Care Veneer Jointer Operator Name Role Phone [facility] Internal Medicine, Primary Care Provi darrel Reason for Visit * Reason Comments Pre-op Exam Encounter Details Date Type Department Care Team (Late st Contact Info) Description 09/26/2023 14:00 EST Office Visit [facility] - [address] [phone] Laila Whitfield MD [address] [facility] [address] [place] [address] Uterine polyp (Primary Dx) Social History Tobacco Use Types Packs/Day Years Used Date Smoking Tobacco: Never Smokeless Tobacco: Never Tobacco Cessation:Counseling Given: Not Answered Alcohol Use Standard Drinks/Week Comments Yes 3 [...] Sign Reading Time Taken Comments Blood Pressure 102/72 09/26/2023 1401 EST Pulse - - Temperature - - Respiratory Rate - - Oxygen Saturation - - Inhaled Oxygen Concentration - - Weight 63.2 kg (139 lb 6.4 oz) 09/26/[address] Height - - Body Mass Index 24.69 10/31/2020 0800 EDT documented in this encounter Functional Status [...] documented in this encounter Progress Notes * Laila Whitfield MD - 09/26/2023 1400 EST REPRODUCTIVE ENDOCRINOLOGY & INFERTILITY PREOPERATIVE HISTORY [...] of corpus uteri documented in this encounter Care Teams Veneer Jointer Operator Relationship Specialty Start Date End Date [facility] Internal Medicine, [address] [place] [address] PCP - General 11/03/15 10/01/23 documented as of this encounter
--- OUTSIDE RECORDS SUMMARY | 2024-09-16 01:34 | XMS_ITS | Encounter Summary ---
Author Organization [facility] Address [address] [place] [address] Care Team Providers Care Backrest Assembler Name Role Phone [facility] Internal Medicine, Primary Care Provi darrel Unknown, Provider Primary Care Provider Unava ilable None, Provider Primary Care Provider Unavailabl e Encounter Details Date Type Department Care Team (Late st Contact Info) Description 05/07/2023 Lab Requisition [facility] Pathology & Laboratory Medicine - [facility] [address] [place], [place] [phone] Outr Resulting Lab, Provider Social History Tobacco [...] Procedure Name Priority Date/Time Associated Diagnosis Comments QUANTIFERON MITOGEN (PERFORMABLE) Today 05/06/2023 8:51 EDT QUANTIFERON TB2 (PERFORMABLE) Today 05/06/2023 8:51 EDT QUANTIFERON TB1 (PERFORMABLE) Today 05/06/2023 8:51 EDT QUANTIFERON NIL (PERFORMABLE) Today 05/06/2023 8:51 EDT QUANTIFERON INTERPRETATION (PERFORMABLE) Today 05/06/2023 8:51 EDT QUANTIFERON TB GOLD PLUS Routine 05/06/2023 8:51 EDT documented in this encounter Results * QUANTIFERON INTERPRETATION (PERFORMABLE) (05/06/2023 8:51 EDT) Quantiferon Interpretation Negative Negative 05/08/2023 12:05 EDT [facility] Comment:No interferon-gamma response to M. tuberculosis antigens was detected. ??Infection with M. tuberculosis is unlikely. A single negative result does not exclude infection with M. tuberculosis. ??In patients at high risk for M. tuberculosis infection, a second test should be considered. TB1 Ag minus Nil 0.01 IU/ml 05/08/20 12:05 EDT [facility] TB2 Ag minus Nil 0.01 IU/mL 05/08/20 12:05 EDT [facility] Blood VENOUS BLOOD / Unknown 05/06/2023 8:51 EDT 05/08/2023 11:49 EDT Narrative [facility] - 05/08/2023 12:05 EDT Results were obtained with the [employer] QuantiFERON-TB Gold Plus CLIA. New platform in use 04/19/2021 us Provider Outr Resulting Lab IMMUNOLOGY AND SEROL OGY ORDERABLES Final Result [facility] [address] [place] [address] * QUANTIFERON MITOGEN (PERFORMABLE) (05/06/2023 8:51 EDT) Blood VENOUS BLOOD / Unknown 05/06/2023 8:51 EDT 05/07/2023 17:13 EDT us Provider Outr Resulting Lab IMMUNOLOGY AND SEROL OGY ORDERABLES Final Result Performing Organization Address City/[facility]/ZIP Co de Phone Number [facility] [address] [place] [address] * QUANTIFERON TB2 (PERFORMABLE) (05/06/2023 8:51 EDT) Blood VENOUS BLOOD / Unknown 05/06/2023 8:51 EDT 05/07/2023 17:13 EDT us Provider Outr Resulting Lab IMMUNOLOGY AND SEROL OGY ORDERABLES Final Result Performing Organization Address City/[facility]/ZIP Co de Phone Number [facility] [address] [place] [address] * QUANTIFERON TB1 (PERFORMABLE) (05/06/2023 8:51 EDT) Blood VENOUS BLOOD / Unknown 05/06/2023 8:51 EDT 05/07/2023 17:13 EDT us Provider Outr Resulting Lab IMMUNOLOGY AND SEROL OGY ORDERABLES Final Result Performing Organization Address City/[facility]/ZIP Co de Phone Number [facility] [address] [place] [address] * QUANTIFERON NIL (PERFORMABLE) (05/06/2023 8:51 EDT) Blood VENOUS BLOOD / Unknown 05/06/2023 8:51 EDT 05/07/2023 17:13 EDT us Provider Outr Resulting Lab IMMUNOLOGY AND SEROL OGY ORDERABLES Final Result Performing Organization Address City/[facility]/ZIP Co de Phone Number [facility] [address] [place] [address] documented in this encounter Visit Diagnoses Not on filedocumented in this encounter Care Teams Backrest Assembler Relationship Specialty Start Date End Date [facility] Internal Medicine, [place] [address] [place], [place] [phone] PCP - General 11/03/15 10/01/23 Unknown, Provider, [place] [address] [place] [address] PCP - General 10/02/23 4 None, Provider PCP - General 05/09/24 documented as of this encounter
--- OUTSIDE RECORDS SUMMARY | 2024-09-16 01:34 | XMS_ITS | Encounter Summary ---
Author Organization [facility] Address [address] [place] [address] Care Team Providers Care Babbitter Name Role Phone [facility] Internal Medicine, Primary Care Provi darrel Reason for Referral * TOUR OPERATOR (Routine/Next Available) - Specialty Report Received Specialty Diagnoses / Procedures [facility] Referred To Contact Diagnoses Infertility, female Procedures OB FIRST TRIMESTER (LESS THAN 14 WEEKS) TRANSVAGINAL Grace Gupta MD Phone: tel: fax: [facility] COVER MAT MACHINE OPERATOR/BALBIR Referral ID Status Reason Start Date Expiration Date V isits Requested Visits Authorized [id number] Specialty Report Received 07/26/2021 1 1 Reason for Visit * TOUR OPERATOR (Routine/Next Available) - Specialty Report Received Specialty Diagnoses / Procedures [facility] Referred To Contact Diagnoses Infertility, female Procedures US OB FIRST TRIMESTER (LESS THAN 14 WEEKS) TRANSVAGINAL Grace Gupta MD Phone: tel: fax: [facility] COVER MAT MACHINE OPERATOR/BALBIR Referral ID Status Reason Start Date Expiration Date V isits Requested Visits Authorized [id number] Specialty Report Received 07/26/2021 1 1 Encounter Details Date Type Department Care Team (Latest Contact Info) Description 08/09/2021 8:00 EST - 08/09/2021 23:59 EST Hospital Encounter [facility] OBGYN Services - [address] [address] Infertility, female Discharge Disposition: Home or Self Care Social [...] TRIMESTER (LESS THAN 14 WEEKS) TRANSVAGINAL Routine 08/09/2021 8:08 EST Infertility, female documented in this encounter Results * US OB FIRST TRIMESTER (LESS THAN 14 WEEKS) TRANSVAGINAL (08/09/2021 8:08 EST) Anatomical Region Laterality Modality Pelvis Ultrasound 08/09/2021 8:11 EST Narrative 08/09/2021 13:23 EST Indication two blastocyst transfer on day 5, Early Assessment. History ======= General History Height 160 cm [...] lb Initial BMI ?24.98 kg/m?? Number of fetuses: 1. Dating ======= Conception: ?Invitro fertilization Embryo transfer on: ?06/28/2021 IVF / ET ?? 5 d GA by IVF / ET 8 w + 5 d KYLAH by IVF / ET: ?? 03/16/2022 Ultrasound examination on: 08/09/2021 GA by U/S based upon: ??CRL GA by U/S ??8 w + 5 d KYLAH by U/S: ?03/16/2022 Assigned: ??Dating performed on 07/26/2021, based on the IVF / ET date Assigned GA ?8 w + 5 d Assigned KYLAH: ??03/16/2022 Assessment Gestational sac: ?? Visualized Location: ??Intrauterine Yolk sac: ??Visualized Amniotic sac: ??Visualized Embryo: ?Visualized CRL ?20.9 mm 66% 8w 5d Hadlock Cardiac activity: ??Present FHR ?168 bpm Maternal Structures Uterus / Cervix Uterus: ?Anteverted Uterus details: ?No abnormalities detected. Appears normal Cervix: ?Appears normal Ovaries / Tubes / Adnexa Rt ovary D1 ?2.6 cm Rt ovary D2 ?2.5 cm Rt ovary D3 ?1.6 cm Rt ovary mean ??2.2 cm Rt ovary vol ?? 5.4 cm cubed Lt ovary D1 ?2.8 cm Lt ovary D2 ?1.9 cm Lt ovary D3 ?1.4 cm Lt ovary mean ??2.0 cm Lt ovary vol ?? 3.7 cm cubed Method ======== Transvaginal ultrasound examination. View: Sufficient. Impression 1st Trimester OB scan ,transvaginal +[id number] Single viable intrauterine (IUP) , size equals menstrual dates. Follow-up The patient will follow-up with her OB. Comment ========= Results discussed w/patient. Z34.8 encounter for supervision of other normal . DATE OF SERVICE: 08/09/2021 Procedure Note Meliza Sena MD - 08/09/2021 Indication two blastocyst transfer on day 5, Early Assessment. History ======= General History Height 160 cm [...] lb Initial BMI 24.98 kg/m?? Number of fetuses: 1. Dating ======= Conception: Invitro fertilization Embryo transfer on: 06/28/2021 IVF / ET 5 d GA by IVF / ET 8 w + 5 d KYLAH by IVF / ET: 03/16/2022 Ultrasound examination on: 08/09/2021 GA by U/S based upon: CRL GA by U/S 8 w + 5 d KYLAH by U/S: 03/16/2022 Assigned: Dating performed on 07/26/2021, based on the IVF / ET date Assigned GA 8 w + 5 d Assigned KYLAH: 03/16/2022 Assessment Gestational sac: Visualized Location: Intrauterine Yolk sac: Visualized Amniotic sac: Visualized Embryo: Visualized CRL 20.9 mm 66% 8w 5d Hadlock Cardiac activity: Present FHR 168 bpm Maternal Structures Uterus / Cervix Uterus: Anteverted Uterus details: No abnormalities detected. Appears normal Cervix: Appears normal Ovaries / Tubes / Adnexa Rt ovary D1 2.6 cm Rt ovary D2 2.5 cm Rt ovary D3 1.6 cm Rt ovary mean 2.2 cm Rt ovary vol 5.4 cm cubed Lt ovary D1 2.8 cm Lt ovary D2 1.9 cm Lt ovary D3 1.4 cm Lt ovary mean 2.0 cm Lt ovary vol 3.7 cm cubed Method ======== Transvaginal ultrasound examination. View: Sufficient. Impression 1st Trimester OB scan ,transvaginal +[id number] Single viable intrauterine (IUP) , size equals menstrualdates. Follow-up The patient will follow-up with her OB. Comment ========= Results discussed w/patient. Z34.8 encounter for supervision of othernormal . DATE OF SERVICE: 08/09/2021 Grace Gupta MD G US OB ORDERABLES F inal Result documented in this encounter Visit Diagnoses Diagnosis Infertility, female Female infertility of unspecified origin documented in this encounter Care Teams Babbitter Relationship Specialty Start Date End Date [facility] Internal Medicine, [place]p [address] [place] [address] PCP - General 11/03/15 10/01/23 documented as of this encounter
--- OUTSIDE RECORDS SUMMARY | 2024-09-16 01:34 | XMS_ITS | Encounter Summary ---
Author Organization [facility] Address [address] [place] [address] Care Team Providers Care Windows Application Packager Name Role Phone [facility] Internal Medicine, Primary Care Provi darrel Encounter Details Date Type Department Care Team (Late st Contact Info) Description 06/28/2021 Orders Only [facility] - [facility] [address] [place] [address] Sienna Chaudhry RN Encounter for infertility (Primary Dx) Social History Tobacco Use [...] documented in this encounter Progress Notes * Sienna Chaudhry RN - 06/28/2021 1320 EST Progesterone ordered documented in this encounter Plan of Treatment Not on file documented as of this encounter Procedures Procedure Name Priority Date/Time Associated Diagnosis Comments PROGESTERONE Routine 06/28/2021 13:21 EST Encounter for infertility documented in this encounter Results * PROGESTERONE (06/28/2021 13:21 EST) Progesterone 20.0 See Table ng/mL 06/28/2021 14:33 EST [facility] Comment: Female Reference Ranges: PHYSIOLOGICAL STATUS ?EXPECTED RANGE ? >= 18 Yrs Menstruating: (Non-) Follicular Phase: ? <= 1.4 ng/mL Luteal Phase: ? 3.3 - 25.6 ng/mL Mid-luteal Phase: ? 4.4 - 28.0 ng/mL Postmenopausal: ? <= 0.7 ng/mL : -------- First Trimester: ?11.2 - 90.0 ng/mL Second Trimester: ? 25.6 - 89.4 ng/mL Third Trimester: ?48.4 - 422.5ng/mL For ectopic , consult a pathologist Reference Ranges for female patients <18 years old have not been established. Blood VENOUS BLOOD / Unknown Venipuncture / Unknown 06/28/2021 13:21 EST 06/28/2021 13:22 EST us Maryan Torres MD CHEMISTRY & BLO OD GAS ORDERABLES Final Result [facility] [address] [place] [address] documented in this encounter Visit Diagnoses Diagnosis Encounter for infertility- Primary Unspecified procreative management documented in this encounter Care Teams Windows Application Packager Relationship Specialty Start Date End Date [facility] Internal Medicine, [facility] [address] [place], [place] [id number] PCP - General 11/03/15 10/01/23 documented as of this encounter
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
--- OUTSIDE RECORDS SUMMARY | 2024-09-16 01:34 | XMS_ITS | Encounter Summary ---
Author Organization [facility] Address [address] [place] [address] Care Team Providers Care Bank Guard Name Role Phone Unknown, Provider Primary Care Provider Unava ilable Reason for Visit * Auth/Cert (Routine) Specialty Diagnoses / Procedures Referred By [facility] t Referred To Contact Diagnoses Uterine polyp Uterine polyp [N84.0] Procedures NH HYSTEROSCOPY BX ENDOMETRIUM&/POLYPC W/WO D&C HYSTEROSCOPY, POLYPECTOMY, DILATION AND CURETTAGE Referral ID Status Reason Start Date Expiration Date Visits Re quested Visits Authorized [id number] 1 1 Encounter Details Date Type Department Care Team (Late st Contact Info) Description 10/11/2023 12:07 EST Anesthesia Event [facility] OR [address] [place], [place] [id number] Roxane Agosto MD [address] [place] [phone] Jason Wei MD [address] [place] [phone] Anesthesia Record Procedure Summary Procedure Name Responsible Anesthesiologist Anesthesia Start Time Anesthesia Stop Time HYSTEROSCOPY, POLYPECTOMY, DILATION AND CURETTAGE (Vagina ) Roxane Agosto MD 10/11/23 1207 10/11/23 1304 Events Date Time Event Comment 10/11/2023 1207 An Start The patient was re-evaluated immediately before moderate or deep sedation use, before anesthesia induction, or before the anesthesia procedure. 1207 An Start Data 1215 An Induction The patient was reevaluated immediately before moderate or deep sedation use and before anesthesia induction. 1217 An Intubation 1219 Anesthesia Ready 1251 An Extubation 1300 an stop data 1302 Handoff to RN I completed my handoff to the receiving nurse during which we: 1. Identified the patient 2. Identified the responsible provider 3. Reviewed the pertinent medical history 4. Discussed the surgical course 5. Reviewed intra-op anesthesia management and issues during anesthesia 6. Set expectations for post-procedure period 7. Allowed opportunity for questions and acknowledgement of understanding. 1304 An Stop Meds Name Total dexaMETHasone (DECADRON) injection 4 mg/ mL (for IV doses up to 10mg) 8 mg fentanyl citrate (PF) injection 25 mcg midazolam (versed) 1 mg/mL 2 mL vial 2 m g ondansetron (PF) (ZOFRAN) injection 4 mg lidocaine 2% (PF) injection glass vial 6 0 mg propOFol (DIPRIVAN) injection 329,560 mc g dexmedetomidine injection - vial 14 mcg acetaminophen 10 mg/ml 100 mL infusion 1 ,000 mg ketOROLAC injection 30 mg lactated ringers (LR) infusion 500 mL * Agents Name Insp Sevoflurane Exp Sevoflurane O2 N2O Air * Blood No blood administrations on file. Lines, Drains, and Airways Type Details Placement Removal Wound 10/11/23; 1236; Vagi na; hysteroscopy, polypectomy and d&c 10/11/23 1236 by Chiqui Hightower RN Peripheral IV 10/11/23; 1030; 04/04; 20; 1.25; B Johnson Introcan; Posterior, Right; Forearm; Inserted by RN; 1; None; 2% Chlorhexidine with IPA; 10/11/23; 1354; Therapy completed; No complications, Catheter intact, Dressing applied 10/11/23 1030 by Sarai Aquino RN 10/11/23 1354 by Lucy Cristobal, MALIA Non-Surgical Airway 10/11/23; 1231 (diane [email or web address] via procedure documentation); 10/11/23; 1251 10/11/23 1231 by Roxane Agosto MD 10/11/23 1251 by Roxane Agosto MD documented in this encounter Social History Tobacco [...] OR Notes * Anesthesia Postprocedure Evaluation - Renny Reynaga CRNA - 10/11/2023 1303 EST Patient: Reanna Espinoza Vital signs were reviewed with the recovery nurse. [facility] Vitals Value Taken Time BP 88/59 10/11/23 1301 Temp 36.1 ??C (97 ??F) 10/11/23 1257 Resp 15 10/11/23 1303 Pulse From Oximetry 74 BPM 10/11/23 1303 SpO2 100 % 10/11/23 1303 Heart Rate 74 BPM 10/11/23 1303 Vitals shown include unvalidated device data. Last Pain Score - Numeric Pain Level (Scale 1-10): 0 Type of Anesthesia - general Anesthesia Post Evaluation Post-procedure vitals reviewed and are stable. Level of consciousness: alert and oriented Temperature status: normothermia Respiratory status: airway patent and nasal cannula Cardiovascular status: acceptable Hydration status: adequate Nausea/Vomiting: none Pain management: adequate Patient participation: able to participate Disposition: outpatient/home Anesthesia Complications: No apparent anesthesia complications * Anesthesia Procedure Notes - Roxane Agosto MD - 10/11/2023 1231 ESTAssociated Order(s): Airway Airway Date/Time: 10/11/2023 12:17 Urgency: elective General Information and Staff Patient location during procedure: OR Anesthesiologist: Roxane Agosto MD Performed: anesthesiologist Performed by: Roxane Agosto MD Authorized by: Roxane Agosto MD Indications and Patient Condition Indications for airway management: anesthesia Sedation level: GA Preoxygenated: yes Ventilation assessment: 0 - not attempted Final Airway Details Final airway type: supraglottic airway Successful airway: LMA (iGel) Size 3 Number of attempts at approach: 1 Number of other approaches attempted: 0 * Anesthesia Preprocedure Evaluation - Roxane Agosto MD - 10/11/2023 1141 EST Anesthesia Preprocedure Evaluation Patient Medical History, including Anesthesia History reviewed. Chart and Nursing Notes reviewed, including NPO status and Medication History. Additional ROS/History Findings: 38 year old female scheduled for hysteroscopy, polypectomy and D+C. Dx: Uterine polyp PMH as below: No Known Allergies Review of Systems Constitutional: Negative for fever. Respiratory: Negative for cough. Cardiovascular: Negative for palpitations. Gastrointestinal: Negative for heartburn. Past Medical History: Diagnosis Date Activity, other involving cardiorespiratory exercise 09/30/23- no SOB with 2 FOS Exercise involving exercise classes Exercise involving housework Exercise involving jogging Exercise involving walking Retained products of conception after miscarriage 02/10/2019 Uterine polyp Relevant Problems Anesthesia (-) PONV (postoperative nausea and vomiting) History reviewed. No pertinent surgical history. Social History Tobacco Use Smoking status: Never Smokeless tobacco: Never Substance Use Topics Alcohol use: Yes Alcohol/week: 0.0 - 3.0 standard drinks of alcohol Drug use: No Physical Exam Airway Mallampati: I TM distance: >3 FB Neck ROM: full Comments: Mouth opening < 6cm Cardiovascular Rhythm: regular Rate: normal Dental - normal exam Comments: Prominent central upper incisors Pulmonary Breath sounds clear to auscultation Abdominal Anesthesia Plan ASA 1 Anesthesia Type - general Anesthesia plan and risks discussed. Informed consent obtained from patient. Specific risks discussed were bleeding, dental injury, nausea, stroke, infection, nerve damage, vomiting, , ICU placement, myocardial infarction and post-op intubation. Code status discussed? No The preoperative history and physical which was performed within 30 days of this procedure, has been reviewed and the clinically appropriate elements of the physical examination have been repeated. There are no changes to the documented history and physical or, if so, such changes are documented inthis note PAT Note Notes from 09/11/23 through 10/11/23 No notes of this type exist for this encounter. documented in this encounter Plan of Treatment Not on file documented as of this encounter Procedures Procedure Name Priority Date/Time Associated Diagnosis Comments ANESTHESIA INTUBATION Routine 10/11/2023 12:17 EST documented in this encounter Results * NH AN ELECTIVE SUPRAGLOTTIC AIRWAY (10/11/2023 12:17 EST) Narrative [facility] POINT OF CARE - 10/11/2023 12:17 EST Roxane Agosto MD ? 10/11/2023 12:31 Airway Date/Time: 10/11/2023 12:17 Urgency: elective General Information and Staff Patient location during procedure: OR Anesthesiologist: Roxane Agosto MD Performed: anesthesiologist Performed by: Roxane Agosto MD Authorized by: Roxane Agosto MD ?? Indications and Patient Condition Indications for airway management: anesthesia Sedation level: GA Preoxygenated: yes Ventilation assessment: 0 - not attempted Final Airway Details Final airway type: supraglottic airway Successful airway: LMA (iGel) Size 3 Number of attempts at approach: 1 Number of other approaches attempted: 0 us Roxane Agosto MD ANESTHESIA ORDERABLES Final Resu lt [facility] POINT OF CARE documented in this encounter Visit Diagnoses Not on filedocumented in this encounter Administered Medications Inactive Administered Medications - up to 3 most recent administrations Medication Order MAR Action Action Date Dose Rate Site acetaminophen (OFIRMEV) IV solution intravenous, PRN, Starting on Sat10/11/23 at 1225, Until Sat10/11/23 at 1305, Routine, Anesthesia Intraprocedure Given 10/11/2023 12:25 EST 1,000 mg dexAMETHasone (DECADRON) injection intravenous, PRN, Starting on Sat10/11/23 at 1217, Until Sat10/11/23 at 1305, Routine, Anesthesia Intraprocedure Given 10/11/2023 12:17 EST 8 mg dexmedeTOMIDine (PRECEDEX) injection intravenous, PRN, Starting on Sat10/11/23 at 1220, Until Sat10/11/23 at 1305, Routine, Anesthesia Intraprocedure Given 10/11/2023 12:36 EST 6 mcg Given 10/11/2023 12:20 EST 8 mcg fentaNYL citrate (PF) injection intravenous, PRN, Starting on Sat10/11/23 at 1213, Until Sat10/11/23 at 1305, Routine, Anesthesia Intraprocedure Given 10/11/2023 12:13 EST 25 mcg ketOROLAC (TORADOL) injection intravenous, PRN, Starting on Sat10/11/23 at 1243, Until Sat10/11/23 at 1305, Routine, Anesthesia Intraprocedure Given 10/11/2023 12:43 EST 30 mg lactated ringers (LR) infusion at 25 mL/hr, intravenous, CONTINUOUS, Starting on Sat10/11/23 at 1000, Until Sat10/11/23 at 1556, Routine, Preprocedure Rate Change 10/11/2023 13:01 EST 50 0 mL/hr Continued by Anesthesia 10/11/2023 12:07 EST 25 mL/hr New Bag 10/11/2023 10:31 EST 25 mL/hr lidocaine (PF) 20 mg/mL (2 %) injection intravenous, PRN, Starting on Sat10/11/23 at 1215, Until Sat10/11/23 at 1305, Routine, Anesthesia Intraprocedure Given 10/11/2023 12:15 EST 60 mg midazolam (PF) (VERSED) injection intravenous, PRN, Starting on Sat10/11/23 at 1209, Until Sat10/11/23 at 1305, Routine, Anesthesia Intraprocedure Given 10/11/2023 12:09 EST 2 mg ondansetron (PF) (ZOFRAN) injection intravenous, PRN, Starting on Sat10/11/23 at 1243, Until Sat10/11/23 at 1305, Routine, Anesthesia Intraprocedure Given 10/11/2023 12:43 EST 4 mg propOFol (DIPRIVAN) injection intravenous, FA IP EQF CONTINUOUS PRN FOR ONE STEP MEDS, Starting on Sat10/11/23 at 1217, Until Sat10/11/23 at 1305, Routine, Anesthesia Intraprocedure Given 10/11/2023 12:18 EST 50 mg New Bag 10/11/2023 12:17 EST 50 mcg/kg/min 18.36 mL/hr Given 10/11/2023 12:15 EST 200 mg documented in this encounter Care Teams Bank Guard Relationship Specialty Start Date End Date Unknown, Provider, PCP - General 10/02/23 05/08/24 documented as of this encounter
--- OUTSIDE RECORDS SUMMARY | 2024-09-16 01:34 | XMS_ITS | Encounter Summary ---
Author Organization [facility] Address [address] [place] [address] Care Team Providers Care Lobster Man Name Role Phone [facility] Internal Medicine, Primary Care Provi darrel Reason for Referral * CANDY MAKER HELPER (Routine/Next Available) - Specialty Report Received Specialty Diagnoses / Procedures [facility] Referred To Contact Diagnoses Infertility, female Procedures OB FIRST TRIMESTER (LESS THAN 14 WEEKS) TRANSVAGINAL Grace Gupta MD Phone: tel: fax: [facility] COMPENSATION ADJUSTER/BALBIR Referral ID Status Reason Start Date Expiration Date V isits Requested Visits Authorized [id number] Specialty Report Received 07/26/2021 1 1 Encounter Details Date Type Department Care Team (Late st Contact Info) Description 07/26/2021 Orders Only [facility] Center Reproductive Medicine & Infertility Center - [address] [address] Grace Gupta MD [address] [facility], [address] [place] [address] Infertility, female (Primary Dx) Social History Tobacco Use Types [...] documented in this encounter Progress Notes * Eddie Gómez MD - 07/26/2021 0841 EST DW patient: -The KYLAH based on day 5 double ET is 03/16/22 (EGA 6w5d). -We will repeat her Ob US in 2 weeks. -continue PNV, all other medications reviewed. -Continue P4 in oil until 10 weeks gestation -Offered to discontinue estradiol vs. Tapering. The patient opted to taper and advised to cut the dose of her estradiol until complete which will take about 10-14 days. -DW pt establishing care with an Ob closer to where they live -Advised to call with bleeding, pain or concerns. -The patient has two embryos cryopreserved. We discussed the storage fees and advised the patient to inform us of a change in her address oni to avoid embryos being discarded if we are unable to locate her. The patient was discussed with Dr Gupta (BALBIR Attending) Eddie Gómez MD, PGY7 Fellow Reproductive Endocrinology & Infertility [facility] 07/26/2021 / 9:54 documented in this encounter Plan of Treatment [...] Sufficient. Impression 1st Trimester OB scan ,transvaginal +[id number] Single viable intrauterine (IUP) , size equals [...] Sufficient. Impression 1st Trimester OB scan ,transvaginal +[id number] Single viable intrauterine (IUP) , size equals menstrualdates. Follow-up The patient will follow-up with her OB. Comment ========= Results discussed w/patient. Z34.8 encounter for supervision of othernormal . DATE OF SERVICE: 08/09/2021 Grace Gupta MD IMG US OB ORDERABLES F inal Result documented in this encounter Visit Diagnoses Diagnosis Infertility, female- Primary Female infertility of unspecified origin Infertility, female Female infertility of unspecified origin documented in this encounter Care Teams Lobster Man Relationship Specialty Start Date End Date [facility] Internal Medicine, [facility]p [address] [place] [address] PCP - General 11/03/15 10/01/23 documented as of this encounter
--- OUTSIDE RECORDS SUMMARY | 2024-09-16 01:34 | XMS_ITS | Encounter Summary ---
Author Organization [facility] Address [address] [place] [address] Care Team Providers Care Rn Palliative Care Name Role Phone Unknown, Provider Primary Care Provider Susana luo Encounter Details Date Type Department Care Team (Late st Contact Info) Description 01/08/2024 15:30 EDT Phlebotomy Only [facility] ED Center 2 Phlebotomy [address] [place], [place] [id number] Applied Biology Professor, Acc Phlebotomy Encounter for preconception consultation Social History Tobacco Use Types Packs/Day Years [...] Procedure Name Priority Date/Time Associated Diagnosis Comments THYROID CASCADE Routine 01/08/2024 15:48 EDT Encounter for preconception consultation VITAMIN D (25,OH) Routine 01/08/2024 15: 48 EDT Encounter for preconception consultation MEASLES IGG AB Routine 01/08/2024 15:48 EDT Encounter for preconception consultation RUBELLA IGG ANTIBODY Routine 01/08/2024 15:48 EDT Encounter for preconception consultation documented in this encounter Results * MEASLES IGG AB (01/08/2024 15:48 EDT) Measles IgG Ab Positive See Note 01/09/2024 12:49 EDT [facility] Comment:Presence of detectab le measles virus IgG antibodies. Blood VENOUS BLOOD / Unknown Venipuncture / Unknown 01/08/2024 15:48 EDT 01/08/2024 16:01 EDT us Cori Delgado MD IMMUNOLOGY AND SEROLOGY ORDER SUNSHINE Final Result [facility] [address] [place] [address] * VITAMIN D (25,OH) (01/08/2024 15:48 EDT) 25OH Vitamin D Tot 40 30 - 100 ng/mL 01/09/2024 12:53 EDT [facility] Comment: Vitamin D 25,OH Interpretive Ranges: Deficiency: ??<10.0 ng/mL Insufficiency: ??10.0 - 30.0 ng/mL Sufficiency: ??30.0 - 100.0 ng/mL Toxicity: ??>100.0 ng/mL Blood VENOUS BLOOD / Unknown Venipuncture / Unknown 01/08/2024 15:48 EDT 01/08/2024 16:01 EDT Cori Delgado MD CHEMISTRY & BLOOD GAS ORDERAB LES Final Result Performing Organization Address City/[facility]/ZIP Co de Phone Number [facility] [address] [place] [address] * THYROID CASCADE (01/08/2024 15:48 EDT) [facility] TSH 0.61 0.47 - 4.68 mIU/L 01/08/2024 17:02 EDT [facility] Blood VENOUS BLOOD / Unknown Venipuncture / Unknown 01/08/2024 15:48 EDT 01/08/2024 16:01 EDT Narrative [facility] - 01/08/2024 17:02 EDT NOTE: The results of this assay can be falsely lowered due to the consumption of Biotin. Cori Delgado MD CHEMISTRY & BLOOD GAS ORDERAB LES Final Result Performing Organization Address [facility] Co de Phone Number [facility] [address] [place] [address] * RUBELLA IGG ANTIBODY (01/08/2024 15:48 EDT) [facility] Rubella IgG Ab Positive See Note 01/09/2024 12:51 EDT [facility] Comment:Positive for IgG ant ibodies to Rubella virus. Blood VENOUS BLOOD / Unknown Venipuncture / Unknown 01/08/2024 15:48 EDT 01/08/2024 16:01 EDT Cori Delgado MD CHEMISTRY & BLOOD GAS ORDERAB LES Final Result Performing Organization Address [facility]/ZIP Co de Phone Number [facility] [address] [place] [address] documented in this encounter Visit Diagnoses Diagnosis Encounter for preconception consultation Other procreative management counseling and advice documented in this encounter Care Teams Rn Palliative Care Relationship Specialty Start Date End Date Unknown, Provider, PCP - General 10/02/23 05/08/24 documented as of this encounter
--- OUTSIDE RECORDS SUMMARY | 2024-09-16 01:34 | XMS_ITS | Encounter Summary ---
Author Organization [facility] Address [address] [place] [address] Care Team Providers Care Patient Account Representative Name Role Phone Unknown, Provider Primary Care Provider Unava ilable Reason for Referral * PHARMACY ASSISTANT (Routine/Next Available) - Authorization Not Required Specialty Diagnoses / Procedures Referred By Serene martinez Referred To Contact Diagnoses Encounter for assisted reproductive fertility cycle Procedures US BASELINE INVITRO Fiona Albert MD Phone: tel: fax: Referral ID Status Reason Start Date Expiration Date Visits Requested Visits Authorized [id number] Authorization Not Required 03/11/2024 1 1 Reason for Visit * PHARMACY ASSISTANT (Routine/Next Available) - Authorization Not Required Specialty Diagnoses / Procedures Referred By Serene martinez Referred To Contact Diagnoses Encounter for assisted reproductive fertility cycle Procedures BASELINE INVITRO Fiona Albert MD Phone: tel: fax: Referral ID Status Reason Start Date Expiration Date Visits Requested Visits Authorized [id number] Authorization Not Required 03/11/2024 1 1 Encounter Details Date Type Department Care Team (Latest Contact Info) Description 04/30/2024 8:20 EDT - 04/30/2024 23:59 EDT Hospital Encounter [facility] - [facility] [address] [place] [address] Encounter for assisted reproductive fertility cycle Discharge [...] Associated Diagnosis Comments US BASELINE INVITRO Routine 04/30/2024 8:47 EDT Encounter for assisted reproductive fertility cycle documented in this encounter Results * US BASELINE INVITRO (04/30/2024 8:47 EDT) Anatomical Region Laterality Modality Pelvis Ultrasound 04/30/2024 8:38 EDT Narrative 04/30/2024 9:26 EDT Indication ======== Baseline for IVF #2 for unexplained infertility/ RPL Plan fresh ET of 2 embryos and PGT-A of any remaining Antagon, 4/ GN Mock transfer Uterus ====== Uterus: ?Appears normal Uterus position: ?? Anteverted Myometrium: ?Fibroid Endometrium: ?? Thin endometrium Endometrial thickness, total ?? 3.0 mm Right Ovary ========= Rt ovary: ??Visualized, normal appearance Rt ovary details: ??Quiescent Rt ovary other findings: ?? AFC = 10 Left Ovary ======== Lt ovary: ??Visualized, normal appearance Lt ovary details: ??Quiescent Lt ovary other findings: ?? AFC =7 Cul de Sac ========= Appears normal. No free fluid visualized Impression ========= Baseline - [address] Normal anteverted uterus with thin endometrium, broad based pedunculated anterior left fibroid. Mock transfer: fundal length 5 cm, transfer length 4 cm Normal appearing quiescent ovaries. Combined AFC of 17. Follow-up ======== Check labs, plan per IVF team. Comment ======== Z31.83 encounter for assisted reproductive fertility procedure cycle DATE OF SERVICE: 04/30/2024 Procedure Note Sue Hyman MD - 04/30/2024 Indication ======== Baseline for IVF #2 for unexplained infertility/ RPL Plan fresh ET of 2 embryos and PGT-A of any remaining Antagon, 4/ GN Mock transfer Uterus ====== Uterus: Appears normal Uterus position: Anteverted Myometrium: Fibroid Endometrium: Thin endometrium Endometrial thickness, total 3.0 mm Right Ovary ========= Rt ovary: Visualized, normal appearance Rt ovary details: Quiescent Rt ovary other findings: AFC = 10 Left Ovary ======== Lt ovary: Visualized, normal appearance Lt ovary details: Quiescent Lt ovary other findings: AFC =7 Cul de Sac ========= Appears normal. No free fluid visualized Impression ========= Baseline - [address] Normal anteverted uterus with thin endometrium, broad based pedunculatedanterior left fibroid. Mock transfer: fundal length 5 cm, transfer length 4 cm Normal appearing quiescent ovaries. Combined AFC of 17. Follow-up ======== Check labs, plan per IVF team. Comment ======== Z31.83 encounter for assisted reproductive fertility procedure cycle DATE OF SERVICE: 04/30/2024 Fiona Albert MD [facility] US OB ORDERABLES Fin al Result documented in this encounter Visit Diagnoses Diagnosis Encounter for assisted reproductive fertility cycle Encounter for assisted reproductive fertility procedure cycle documented in this encounter Care Teams Patient Account Representative Relationship Specialty Start Date End Date Unknown, Provider, PCP - General 10/02/23 05/08/24 documented as of this encounter
--- OUTSIDE RECORDS SUMMARY | 2024-09-16 01:34 | XMS_ITS | Encounter Summary ---
Author Organization [facility] Address [address] [place] [address] Care Team Providers Care Teaching Manager Name Role Phone [facility] Internal Medicine Primary Care Provi darrel Reason for Visit * Reason Onset Date Comments Coordination Of Care 06/27/2021 Encounter Details Date Type Department Care Team (Late st Contact Info) Description 06/27/2021 Telephone [facility] Reproductive Medicine & Infertility Center - [facility] [address] [place] [address] Meliza Moise RN Coordination Of [...] encounter Miscellaneous Notes * Telephone Encounter - Meliza Moise RN - 06/27/2021 1251 EST Call to pt to schedule embryo transfer. This will be a day 5 transfer. Pt instructed to arrive at 1315 for a 1330 procedure on 06/28. Patient instructions: ?? Check in at [facility] for your procedure thirty minutes prior to your appointment time. ?? Arrive with a filling bladder. ?? The embryo transfer is a relatively easy procedure and does not need sedation. ?? You will receive a dose of IM progesterone prior to the embryo transfer. You will resume at-homeprogesterone in oil injections either later in the day or the day after your embryo transfer. ?? NO use of perfumes, colognes, or scented soaps the morning of your transfer for either you or your spouse/partner. These scents can be embryo toxic. Pt verbalized understanding of instructions and plan. documented in this encounter Plan of Treatment Not on file documented as of this encounter Visit Diagnoses Not on filedocumented in this encounter Care Teams Teaching Manager Relationship Specialty Start Date End Date [facility] Internal Medicine, [place] [address] [place] [place] [address] PCP - General 11/03/15 10/01/23 documented as of this encounter
--- OUTSIDE RECORDS SUMMARY | 2024-09-16 01:34 | XMS_ITS | Encounter Summary ---
Author Organization [facility] Address [address] [place] [address] Care Team Providers Care Arcade Technician Name Role Phone [facility] Internal Medicine, Primary Care Provi darrel Unknown, Provider Primary Care Provider Unava ilable None, Provider Primary Care Provider Unavailabl e Encounter Details Date Type Department Care Team (Late st Contact Info) Description 07/25/2023 Lab Requisition [facility] Pathology & Laboratory Medicine - [facility] [address] [place], [place] [id number] Outr Resulting Lab, Provider Social History Tobacco [...] Procedure Name Priority Date/Time Associated Diagnosis Comments SYPHILIS SEROLOGY Routine 07/25/2023 15: 50 EST ESTRADIOL, ADULTS Routine 07/25/2023 15: 50 EST LH Routine 07/25/2023 15:50 EST FSH Routine 07/25/2023 15:50 EST documented in this encounter Results * LH (07/25/2023 15:50 EST) Luteinizing Hormone 6.0 See Note mIU/mL 07/25/2023 23:37 EST [facility] Comment: NOTE: Female Reference Ranges: Pre-Pubertal: ?<6.0 mIU/mL Menstruating: Follicular Phase(-12 to -4 days: ??1.9 - 12.5 mIU/mL Midcycle(-3 to +2 days): ?8.7 - 76.3 mIU/mL Luteal Phase(+4 to +12 days): ? 0.5 - 16.9 mIU/mL Post Menopausal: 15.9 - 54.0 mIU/mL Blood VENOUS BLOOD / Unknown 07/25/2023 15:50 EST 07/25/2023 22:04 EST us Provider Outr Resulting Lab CHEMISTRY & BLOOD GA S ORDERABLES Final Result [facility] [address] [place] [address] * FSH (07/25/2023 15:50 EST) FSH 10.8 See Note mIU/mL 07/25/2023 23:41 EST [facility] Blood VENOUS BLOOD / Unknown 07/25/2023 15:50 EST 07/25/2023 22:04 EST Narrative [facility] - 07/25/2023 23:41 EST NOTE: Female FSH Reference Ranges (Menstruating): PHYSIOLOGICAL STATUS ? REFERENCE RANGE ? Follicular (-12 to -4 days): ?? 2.5 - 10.2 mIU/mL Midcycle (-3 to +2 days): ?3.4 - 33.4 mIU/mL Luteal (+4 to +12 days): ? 1.5 - 9.1 mIU/mL Postmenopausal: ?23.0 - 116.3 mIU/mL Reference Ranges for pediatric non-menstruating female patients have not been established. us Provider Outr Resulting Lab CHEMISTRY & BLOOD GA S ORDERABLES Final Result Performing Organization Address [facility]/ZIP Co de Phone Number [facility] [address] [place] [address] * SYPHILIS SEROLOGY (07/25/2023 15:50 EST) Pathologist [facility] Syphilis Serology Negative Negative 07/26/2023 11:45 EST [facility] Blood VENOUS BLOOD / Unknown 07/25/2023 15:50 EST 07/25/2023 22:04 EST us Provider Outr Resulting Lab IMMUNOLOGY AND SEROL OGY ORDERABLES Final Result Performing Organization Address [facility] Co de Phone Number [facility] [address] [place] [address] * ESTRADIOL, ADULTS (07/25/2023 15:50 EST) Pathologist [facility] Estradiol 14 See Note pg/mL 07/25/2023 23:33 EST [facility] Comment: NOTE: FEMALE REFERENCE RANGES: MENSTRUATING ? By cycle day relative to LH peak Follicular ?(-12 to -4 days) ??20-144 pg/mL Midcycle ?(-3 to +2 days) ?? 64-357 pg/mL Luteal ?(+4 t0 +12 days) ??56-214 pg/mL POSTMENOPAUSAL ?<32 pg/mL *Cross reactivity with Fulvestrant could lead to a falsely elevated estradiol result in patients treated with this drug. Blood VENOUS BLOOD / Unknown 07/25/2023 15:50 EST 07/25/2023 22:04 EST us Provider Outr Resulting Lab CHEMISTRY & BLOOD GA S ORDERABLES Final Result Performing Organization Address City/State/[facility] Co de Phone Number [facility] [address] [place] [address] documented in this encounter Visit Diagnoses Not on filedocumented in this encounter Care Teams Arcade Technician Relationship Specialty Start Date End Date [facility] Internal Medicine, [place]p [address] [place], [place] [id number] PCP - General 11/03/15 10/01/23 Unknown, Provider, [place] [address] [place] [address] PCP - General 10/02/23 4 None, Provider PCP - General 05/09/24 documented as of this encounter
--- OUTSIDE RECORDS SUMMARY | 2024-09-16 01:34 | XMS_ITS | Encounter Summary ---
Author Organization [facility] Address [address] [place] [address] Care Team Providers Care Flooring Machine Operator Name Role Phone [facility] Internal Medicine, Primary Care Provi darrel Encounter Details Date Type Department Care Team (Late st Contact Info) Description 06/28/2021 12:42 EST - 06/28/2021 23:59 EST Hospital Encounter [facility] Reproductive Medicine & Inf[facility] - [facility] [address] [place] [address] Maryan Jameson MD [address] [place] [address] [address] [place] [address] Encounter for test, result unknown (Primary Dx); Infertility, female, primary Discharge Disposition: Home or Self Care Social [...] 13:35 EDT documented in this encounter Discharge Instructions * Discharge Instructions* Sienna Chaudhry RN - 06/28/2021 13:31 EST 1. Avoid strenuous activity and heavy lifting until after your test. No lifting more than10 pounds. No high impact exercising like jogging, running , or step aerobics. 2. Nothing in the vagina, intercourse or tampons, until after your first HCG blood draw ( test). 3. Resume your daily progesterone injection tomorrow. DO NOT stop them for any reason until directed to do so. 4. Remember that mild cramping and/or a small amount of pink, dark red, or brown vaginal spotting are normal following an embryo transfer for up to two weeks, sometimes longer. Feel free to call us at the number provided should you have any concerns regarding cramping/spotting after your embryo transfer. 5. Due for HCG 07/07 and 07/09. Standing order 3 of 3 hCG lab orders remaining From 12/2020 documented in this encounter Medications at Time of Discharge estradioL (ESTRACE) 1 mg tablet Take 3 Tablets by mouth 2 times daily. 200 Tablet 05/24/2021 07/27/2021 leuprolide (LUPRON) 1 mg/0.2 mL kit Inject 20 units into the skin. Decrease to 10 units when directed. 2 Each 05/24/2021 07/27/2021 norgestimate-eth inyl estradioL (ORTHO-CYCLEN, 28,) 0.25-35 mg-mcg per tablet Take 1 Tablet by mouth daily. Take active tabs continuously. Discard inactive tabs. 56 Tablet 05/03/2021 07/12/2021 progesterone in oil 50 mg/mL injection Inject 1.5 mL into the muscle daily. 3 Each 05/24/2021 07/27/2021 documented as of this encounter Discharge Disposition Disposition Code Departure Means Destination Home or Self Care documented in this encounter Procedure Notes * Maryan Jameson MD - 06/28/2021 1338 EST Images from the original note were not included. Procedure: Procedures [facility] Reproductive Medicine Women???s [facility] Care Java-Level 4 [facility] EMBRYO TRANSFER PROCEDURE NOTE REPRODUCTIVE MEDICINE & INFERTILITY The patient, Reanna Espinoza was brought into the procedure room, and identified by name, medical record number, and date of . A formal time out procedure with the entire team was performed with the patient, nursing staff, physicians, and embryology staff. The embryology summary sheet was reviewed with the patient (couple), and the number of embryo(s) totransfer was discussed and agreed upon by myself and the couple. The number of embryo (s) to transfer was also confirmed on the embryo transfer consent the patient signed today. She will have a day 5 transfer of 2 embryo(s). We reviewed the risks of embryo transfer, the potential for multiple gestations, and the patient (couple) accepted these risks, and agreed on the number of embryo(s) to transfer. They (she) has 2 remaining in cryopreservation. The disposition of the remaining unfertilized oocytes, remaining embryos were also reviewed by the couple and confirmed with the reproductive science lab staff members. The patient was placed in modified dorsolithotomy position and a speculum was inserted into the vagina and the cervix visualized. The cervix and vagina were cleansed with sterile embryo culture media. The embryo transfer was performed under ultrasound guidance with the patient with a full bladder. An afterload techniques was utilized with the Salcedo stylet inserted into the cervix to the level ofthe internal OS. The loaded Salcedo embryo transfer catheter was inserted into the stylet by the embryology team. The catheter was advanced by the physician to the level of the mid uterine cavity and the embryo(s) were injected. The intact entire catheter was returned to the embryology lab and inspected by the embryology team and no embryo(s) were retained. There was no blood, mucous, or endometrium on the surface of the catheter. Plan: 1.) Continue hormonal replacement per her ART protocol ( progesterone and or estrogen). 2.) Patient to call with spotting or bleeding 3.) Serial hCG's to be performed 10 and 12 days post transfer 4.) Discharge to home per [facility] protocol documented in this encounter Miscellaneous Notes * Addendum Note - Theresa Aguilar - 06/28/2021 1330 Elounter addended by: Theresa Aguilar on: 07/04/2021 8:47 Actions taken: Charge Capture section accepted documented in this encounter Plan of Treatment Not on file documented as of this encounter Visit Diagnoses Diagnosis Encounter for test, result unknown- Primary Infertility, female, primary Female infertility of unspecified origin documented in this encounter Administered Medications Inactive Administered Medications - up to 3 most recent administrations Medication Order MAR Action Action Date Dose Rate Site progesterone in oil injection 100 mg 100 mg, intramuscular, DAILY, 1 dose, First dose on 06/28/21 at 1345, Routine Given 06/28/2021 13:16 EST 100 mg Right Gluteus Medius/Ventrogluteal documented in this encounter Care Teams Flooring Machine Operator Relationship Specialty Start Date End Date [facility] Internal Medicine, Mp [address] [place] [address] PCP - General 11/03/15 10/01/23 documented as of this encounter
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
--- OUTSIDE RECORDS SUMMARY | 2024-09-16 01:34 | XMS_ITS | Encounter Summary ---
Author Organization [facility] Address [address] [place] [address] Care Team Providers Care Grain Cleaner And Transfer Operator Name Role Phone [facility] Internal Medicine, Primary Care Provi darrel Unknown, Provider Primary Care Provider Unava ilable None, Provider Primary Care Provider Unavailabl e Encounter Details Date Type Department Care Team (Late st Contact Info) Description 07/25/2023 Lab Requisition [facility] Pathology & Laboratory Medicine - [facility] [address] [place], [place] [phone] Outr Resulting Lab, Provider Social History Tobacco [...] 1/2 ANTIGEN AND ANTIBODY, 4TH GENERATION Routine 07/25/2023 15:50 EST documented in this encounter Results * HIV 1/2 ANTIGEN AND ANTIBODY, 4TH GENERATION (07/25/2023 15:50 EST) HIV 1 and 2 Antibody/p24 Antigen, 4th Generation Negative Negative 07/26/2023 10:31 EST [facility] Comment:If acute HIV-1 infec tion is suspected in a high risk patient, submit plasma specimen for HIV-1 RNA quantitation test. Blood VENOUS BLOOD / Unknown 07/25/2023 15:50 EST 07/25/2023 22:04 EST Narrative [facility] - 07/26/2023 10:31 EST Fourth Generation assay performed on the Siemens Centaur XPT. us Provider Outr Resulting Lab IMMUNOLOGY AND SEROL OGY ORDERABLES Final Result [facility] [address] [place] [address] documented in this encounter Visit Diagnoses Not on filedocumented in this encounter Care Teams Grain Cleaner And Transfer Operator Relationship Specialty Start Date End Date [facility] Internal Medicine, [place] [address] [place] [address] PCP - General 11/03/15 10/01/23 Unknown, Provider[place] [address] [place] [address] PCP - General 10/02/23 4 None, Provider PCP - General 05/09/24 documented as of this encounter
--- OUTSIDE RECORDS SUMMARY | 2024-09-16 01:34 | XMS_ITS | Encounter Summary ---
Author Organization [facility] Address [address] [place] [address] Care Team Providers Care Data Compiler Name Role Phone [facility] Internal Medicine, Primary Care Provi darrel Reason for Visit * Reason Onset Date Comments Results 07/07/2021 Encounter Details Date Type Department Care Team (Late st Contact Info) Description 07/07/2021 Telephone [facility] Reproductive Medicine & Infertility Center - [address] [address] Meliza Moise RN Results Social History Tobacco Use Types Packs/Day [...] Telephone Encounter - Meliza Moise RN - 07/10/2021 0914 EST Sent message to pt with repeat hCG level. Component Latest Ref Rng & Units 07/09/2021 Quant Beta HCG, Preg <5 mIU/mL 168 (H) Advised her of appropriate rise. Should repeat hCG level in 48 hours. * Telephone Encounter - Meliza Moise RN - 07/07/2021 1002 EST Telephoned patient to inform of positive HCG of 73, indicative of early . Advised to repeat in 48 hours, order in [facility] at [facility] Discussed ongoing estrace and progesterone in oil needs until 9w6d of . Pt verbalized understanding and has no further questions. documented in this encounter Plan of Treatment Not on file documented as of this encounter Visit Diagnoses Not on filedocumented in this encounter Care Teams Data Compiler Relationship Specialty Start Date End Date [facility] Internal Medicine, [place] [address] [place] [address] PCP - General 11/03/15 10/01/23 documented as of this encounter
--- OUTSIDE RECORDS SUMMARY | 2024-09-16 01:34 | XMS_ITS | Encounter Summary ---
Author Organization [facility] Address [address] [place] [address] Care Team Providers Care Senior Functional Analyst Name Role Phone [facility] Internal Medicine, Primary Care Provi darrel Reason for Referral * TOP CLOSER (Routine/Next Available) - Specialty Report Received Specialty Diagnoses / Procedures [facility] Referred To Contact Diagnoses resulting from assisted reproductive technology in first trimester Procedures OB FIRST TRIMESTER (LESS THAN 14 WEEKS) TRANSVAGINAL Sue Hymna MD Phone: tel: fax: [facility] SELECTOR/[facility] Referral ID Status Reason Start Date Expiration Date V isits Requested Visits Authorized [id number] Specialty Report Received 07/11/2021 1 1 Reason for Visit * TOP CLOSER (Routine/Next Available) - Specialty Report Received Specialty Diagnoses / Procedures [facility] Referred To Contact Diagnoses resulting from assisted reproductive technology in first trimester Procedures US OB FIRST TRIMESTER (LESS THAN 14 WEEKS) TRANSVAGINAL Sue Hyman MD Phone: tel: fax: [facility] SELECTOR/[facility] Referral ID Status Reason Start Date Expiration Date V isits Requested Visits Authorized [id number] Specialty Report Received 07/11/2021 1 1 Encounter Details Date Type Department Care Team (Latest Contact Info) Description 07/26/2021 8:00 EST - 07/26/2021 23:59 EST Hospital Encounter [facility] OBGYN Services - [address] [address] resulting from assisted reproductive technology in first [...] 1 estradioL (ESTRACE) 1 mg tablet Take by mouth daily as directed. Use to finish estradiol taper. 6 Tablet 07/27/2021 4 estradioL (ESTRACE) 1 mg tablet Take 3 Tablets by mouth 2 times daily. 90 Tablet 07/12/2021 1 estradioL (ESTRACE) 1 mg tablet Take 3 Tablets by mouth 2 times daily. 200 Tablet 05/24/2021 1 leuprolide (LUPRON) 1 mg/0.2 mL kit Inject 20 units into the skin. Decrease to 10 units when directed. 2 Each 05/24/2021 1 progesterone in oil 50 mg/mL injection Inject 1.5 mL into the muscle daily. 3 Each 2 07/27/2021 4 progesterone in oil 50 mg/mL injection Inject 1.5 mL into the muscle daily. 3 Each 05/24/2021 1 documented as of this encounter Discharge Disposition Disposition Code Departure Means Destination Home or Self Care documented in this encounter Plan of Treatment Not on file documented as of this encounter Procedures Procedure Name Priority Date/Time Associated Diagnosis Comments US OB FIRST TRIMESTER (LESS THAN 14 WEEKS) TRANSVAGINAL Routine 07/26/2021 8:44 EST resulting from assisted reproductive technology in [...] view. Impression 1st Trimester OB scan ,transvaginal +[id number] Single viable intrauterine (IUP) , size equals [...] view. Impression 1st Trimester OB scan ,transvaginal +[id number] Single viable intrauterine (IUP) , size equals menstrualdates. Follow-up Repeat OB ultrasound in 2 weeks. Comment ========= Results discussed w/patient O09.81 supervision of resulting from assisted reproductivetechnology. DATE OF SERVICE: 07/26/2021 us Sue Hyman MD IMG US OB ORDERABLES Leticia l Result documented in this encounter Visit Diagnoses Diagnosis resulting from assisted reproductive technology in first trimester documented in this encounter Care Teams Senior Functional Analyst Relationship Specialty Start Date End Date [facility] Internal Medicine, [facility] [address] [address] PCP - General 11/03/15 10/01/23 documented as of this encounter
--- OUTSIDE RECORDS SUMMARY | 2024-09-16 01:34 | XMS_ITS | Encounter Summary ---
Author Organization [facility] Address [address] [place] [address] Care Team Providers Care Furniture Detailer Name Role Phone [facility] Internal Medicine, Primary Care Provi darrel Encounter Details Date Type Department Care Team (Late st Contact Info) Description 07/09/2021 7:15 EST Phlebotomy Only [facility] ED Center 2 Phlebotomy [address] [place], [place] [id number] Casework Supervisor, Acc Phlebotomy Miscarriage Social History Tobacco Use [...] Associated Diagnosis Comments QUANT BETA HCG, Routine 07/09/2021 7:11 EST Miscarriage documented in this encounter Results * (ABNORMAL) QUANT BETA HCG, (07/09/2021 7:11 EST) Beta HCG Quant, 168(H) <5 mIU/mL 07/09/2021 8:39 EST [facility] Comment: NOTE: : Negative: Less than 5mIU/mL Indeterminant: Between 5 and 25 mIU/mL, recommend repeat testing in 48 hours Positive: Greater than 25 mIU/mL The results of this assay can be falsely lowered due to the consumption of Biotin. Blood VENOUS BLOOD / Unknown Venipuncture / Unknown 07/09/2021 7:11 EST 07/09/2021 7:54 EST Micah Phillip MD CHEMISTRY & BLOOD GAS NIKOLAY VALENCIA Final Result [facility] [address] [place] [address] documented in this encounter Visit Diagnoses Diagnosis Miscarriage Unspecified spontaneous without mention of complication documented in this encounter Care Teams Furniture Detailer Relationship Specialty Start Date End Date [facility] Internal Medicine, Mp [address] [place] [address] PCP - General 11/03/15 10/01/23 documented as of this encounter
--- OUTSIDE RECORDS SUMMARY | 2024-09-16 01:35 | XMS_ITS | Encounter Summary ---
Author Organization [facility] Address [address] [place] [address] Care Team Providers Care Teaching Young Name Role Phone [facility] Internal Medicine, Primary Care Provi darrel Reason for Visit * Reason Comments Infertility Encounter Details Date Type Department Care Team (Late st Contact Info) Description 02/20/2021 14:[address] [facility] Reproductive Medicine & Infertility Center - [facility] [address], [place] [id number] Maryan Jameson MD [address] [facility] [address] [place] [address] Procreative management counseling (Primary Dx) Social History Tobacco Use Types [...] documented in this encounter Progress Notes * Maryan Jameson MD - 02/20/2021 1400 EDT UPT for HYCOSY documented in this encounter Plan of Treatment Not on file documented as of this encounter Procedures Procedure Name Priority Date/Time Associated Diagnosis Comments POCT TEST, CLINITEK Routine 02/20/2021 14:13 EDT Procreative management counseling POCT CSN BARCODE URINE PREG TEST Routine 02/20/2021 14:05 EDT Procreative management counseling POCT TEST, CLINITEK ORDER Routine 02/20/2021 14:05 EDT Procreative management counseling documented in this encounter Results * POCT TEST, CLINITEK (02/20/2021 14:13 EDT) UPT Result Negative Negative 02/20/2021 14:19 EDT [facility] HN LAB COMMENT (CLINITEK, UPT) Test performed at [facility] 02/20/2021 14:19 EDT [facility] Comment:False negative resul ts may occur in women who are beyond 5-8 weeks gestation. Diagnosis of should be based on a correlation of test results with typical clinical signs and symptoms. Urine URINE SPECIMEN COLLECTION, CLEAN CATCH / Unknown 02/20/2021 14:13 EDT 02/20/2021 14:19 EDT us Maryan Torres MD POINT OF CARE T EST ORDERABLES Final Result [facility] [address] [place] [address] * POCT CSN BARCODE URINE PREG TEST (02/20/2021 14:05 EDT) Urine URINE SPECIMEN COLLECTION, CLEAN CATCH / Unknown 02/20/2021 14:05 EDT 02/20/2021 14:05 EDT us Maryan Torres MD LAB INF O SERVICE AND SUPPORT & PHONE RESULT Final Result [facility] [address] [place] [address] documented in this encounter Visit Diagnoses Diagnosis Procreative management counseling- Primary Other procreative management counseling and advice documented in this encounter Care Teams Teaching Young Relationship Specialty Start Date End Date [facility] Internal Medicine, [place]p [address] [place] [address] PCP - General 11/03/15 10/01/23 documented as of this encounter
--- OUTSIDE RECORDS SUMMARY | 2024-09-16 01:35 | XMS_ITS | Encounter Summary ---
Author Organization [facility] Address [address] [place] [address] Care Team Providers Care Operations Officer Afloat Name Role Phone [facility] Internal Medicine, Primary Care Provi darrel Reason for Referral * CASINO OPERATIONS SUPERVISOR (Routine/Next Available) - Specialty Report Received Specialty Diagnoses / Procedures Referred By Serene martinez Referred To Contact Diagnoses Encounter for assisted reproductive fertility cycle Procedures US DIRECTOR PHARMACEUTICAL EXAM (BALBIR ONLY) Maryan Jameson MD Phone: tel: fax: Referral ID Status Reason Start Date Expiration Date V isits Requested Visits Authorized [id number] Specialty Report Received 06/19/2021 1 1 Reason for Visit * CASINO OPERATIONS SUPERVISOR (Routine/Next Available) - Specialty Report Received Specialty Diagnoses / Procedures Referred By Serene martinez Referred To Contact Diagnoses Encounter for assisted reproductive fertility cycle Procedures US DIRECTOR PHARMACEUTICAL EXAM (BALBIR ONLY) Maryan Jameson MD Phone: tel: fax: Referral ID Status Reason Start Date Expiration Date V isits Requested Visits Authorized [id number] Specialty Report Received 06/19/2021 1 1 Encounter Details Date Type Department Care Team (Latest Contact Info) Description 06/22/2021 8:00 EST - 06/22/2021 23:59 EST Hospital Encounter [facility] [address] [address] Encounter for assisted reproductive fertility cycle Discharge [...] Priority Date/Time Associated Diagnosis Comments US DIRECTOR PHARMACEUTICAL EXAM (BALBIR ONLY) Routine 06/22/2021 8:09 EST Encounter for assisted reproductive fertility cycle documented in this encounter Results * US DIRECTOR PHARMACEUTICAL EXAM (BALBIR ONLY) (06/22/2021 8:09 EST) Anatomical Region Laterality Modality Ultrasound 06/22/2021 8:10 EST Narrative 06/22/2021 9:03 EST Indication FET lining check. Uterus ======= Uterus: ?Visualized Uterus position: ?? Anteverted Myometrium: ?Fibroid Endometrium: ?? Trilaminar endometrium Cervix details: ?Normal appearance Endometrial thickness, total ?? 14.1 mm Uterus other findings: No impact of fibroid on cavity Right Ovary Rt ovary: ??Visualized, normal appearance Outline: ?? Smooth Rt ovary morphology: ?? Normal Rt ovary other findings: ?? Limited view of ovary, seen previously. Quiescent. Left Ovary Lt ovary: ??Visualized, normal appearance Outline: ?? Smooth Lt ovary morphology: ?? normal Lt ovary other findings: ?? Limited view of ovary, seen previously. Quiescent. Cul de Sac Appears normal. No free fluid visualized. Method ======== Transvaginal ultrasound examination, probe # 7. View: Good view. Impression USE (IVF Follicular) - 72737 1. Normal-appearing anteverted uterus. 2. Trilaminar endometrium, measured as above. 3. Limited view of previously seen fundal fibroid. 4. Normal-appearing quiescent ovaries bilaterally. 5. No pelvic free fluid. Follow-up Cleared to start progesterone per cycle calendar. Comment ========= Z31.83 encounter for assisted reproductive fertility procedure cycle. Ultrasound findings discussed w/patient. Prior ultrasounds reviewed and compared to today's ultrasound. DATE OF SERVICE: 06/22/2021 Procedure Note Grace Gupta MD - 06/22/2021 Indication FET lining check. Uterus ======= Uterus: Visualized Uterus position: Anteverted Myometrium: Fibroid Endometrium: Trilaminar endometrium Cervix details: Normal appearance Endometrial thickness, total 14.1 mm Uterus other findings: No impact of fibroid on cavity Right Ovary Rt ovary: Visualized, normal appearance Outline: Smooth Rt ovary morphology: Normal Rt ovary other findings: Limited view of ovary, seen previously.Quiescent. Left Ovary Lt ovary: Visualized, normal appearance Outline: Smooth Lt ovary morphology: normal Lt ovary other findings: Limited view of ovary, seen previously.Quiescent. Cul de Sac Appears normal. No free fluid visualized. Method ======== Transvaginal ultrasound examination, probe # 7. View: Good view. Impression USE (IVF Follicular) - [id number] 1. Normal-appearing anteverted uterus. 2. Trilaminar endometrium, measured as above. 3. Limited view of previously seen fundal fibroid. 4. Normal-appearing quiescent ovaries bilaterally. 5. No pelvic free fluid. Follow-up Cleared to start progesterone per cycle calendar. Comment ========= Z31.83 encounter for assisted reproductive fertility procedure cycle.Ultrasound findings discussed w/patient. Prior ultrasounds reviewed and compared to today's ultrasound. DATE OF SERVICE: 06/22/2021 us Maryan Torres MD [facility] US OB ORDER SUNSHINE Final Result documented in this encounter Visit Diagnoses Diagnosis Encounter for assisted reproductive fertility cycle Encounter for assisted reproductive fertility procedure cycle documented in this encounter Care Teams Operations Officer Afloat Relationship Specialty Start Date End Date [facility] Internal Medicine, [place] [address] [place] [place] [address] PCP - General 11/03/15 10/01/23 documented as of this encounter
--- OUTSIDE RECORDS SUMMARY | 2024-09-16 01:35 | XMS_ITS | Encounter Summary ---
Author Organization [facility] Address [address] [place] [address] Care Team Providers Care Rolled Ham Lacer Name Role Phone [facility] Internal Medicine, Primary Care Provi darrel Reason for Referral * TOOLER (Routine) - Specialty Report Received Specialty Diagnoses / Procedures [facility] Referred To Contact Diagnoses resulting from assisted reproductive technology, antepartum Procedures OB FIRST TRIMESTER (LESS THAN 14 WEEKS) TRANSVAGINAL Maryan Jameson MD Phone: tel: fax: Referral ID Status Reason Start Date Expiration Date V isits Requested Visits Authorized [id number] Specialty Report Received 12/02/2020 1 1 Encounter Details Date Type Department Care Team (Late st Contact Info) Description 12/02/2020 Orders Only [facility] Reproductive Medicine & Infertility Center - [facility] [address] [place], [place] [id number] Michelle Byers MD resulting from assisted reproductive technology, antepartum (Primary Dx) Social History Tobacco Use Types [...] 8:37 EST Sexual Orientation Not on file COVID-19 Exposure Response Date Recorded In the last month, have you been in contact with someone who was confirmed or suspected to have Coronavirus / COVID-19? No / Unsure 11/21/2020 7:45 EDT documented as of this encounter Functional Status [...] FIRST TRIMESTER (LESS THAN 14 WEEKS) TRANSVAGINAL (12/09/2020 9:37 EDT) Anatomical Region Laterality Modality Pelvis Ultrasound 12/09/2020 8:29 EDT Narrative 12/09/2020 9:38 EDT Indication Viability, s/p D5 ET on 11/07/20 GA 7w2d today by ET dating . History ======= General History Height 160 cm Height (ft) ?5 ft Height (in) ?3 in Maternal Assessment Height 160 cm Height (ft) ?5 ft Height (in) ?3 in Physical Exam Initial weight 64 kg Initial weight (lb) ?141 lb Initial BMI ?24.98 kg/m?? Number of gestational sacs: 1. Dating ======= Conception: ?Invitro fertilization Embryo transfer on: ?11/07/2020 IVF / ET ?? 5 d GA by IVF / ET 7 w + 2 d KYLAH by IVF / ET: ?? 07/26/2021 Assigned: ??Dating performed on 12/02/2020, based on the IVF / ET date Assigned GA ?7 w + 2 d Assigned KYLAH: ??07/26/2021 Assessment Location: ??Intrauterine YS mean ?2.7 mm ??<1% Grisolia Embryo: ?Not visualized Maternal Structures Uterus / Cervix Uterus: ?Appears normal Cervix: ?Appears normal Ovaries / Tubes / Adnexa Rt ovary: ??Visualized, normal appearance Lt ovary: ??Visualized, normal appearance Pouch of Tom / Other Structures Cul de Sac: ?Appears normal Free fluid: ?No free fluid visualized Impression OB Transvaginal - [id number] 1. Small gestational sac with no significant growth from prior, however this is a short interval study. 2. Normal ovaries. 3. No free fluid in the cul-de-sac. Follow-up draw [facility] [place] today, see note in Epic. Comment ========= O09.81 supervision of resulting from assisted reproductive technology. DATE OF SERVICE: 12/09/2020 Procedure Note Meliza Sena MD - 12/09/2020 Indication Viability, s/p D5 ET on 11/07/20 GA 7w2d today by ET dating . History ======= General History Height 160 cm Height (ft) 5 ft Height (in) 3 in Maternal Assessment Height 160 cm Height (ft) 5 ft Height (in) 3 in Physical Exam Initial weight 64 kg Initial weight (lb) 141 lb Initial BMI 24.98 kg/m?? Number of gestational sacs: 1. Dating ======= Conception: Invitro fertilization Embryo transfer on: 11/07/2020 IVF / ET 5 d GA by IVF / ET 7 w + 2 d KYLAH by IVF / ET: 07/26/2021 Assigned: Dating performed on 12/02/2020, based on the IVF / ET date Assigned GA 7 w + 2 d Assigned KYLAH: 07/26/2021 Assessment Location: Intrauterine YS mean 2.7 mm <1% Grisolia Embryo: Not visualized Maternal Structures Uterus / Cervix Uterus: Appears normal Cervix: Appears normal Ovaries / Tubes / Adnexa Rt ovary: Visualized, normal appearance Lt ovary: Visualized, normal appearance Pouch of Tom / Other Structures Cul de Sac: Appears normal Free fluid: No free fluid visualized Impression OB Transvaginal - [id number] 1. Small gestational sac with no significant growth from prior, howeverthis is a short interval study. 2. Normal ovaries. 3. No free fluid in the cul-de-sac. Follow-up draw [facility] [place] today, see note in Epic. Comment ========= O09.81 supervision of resulting from assisted reproductivetechnology. DATE OF SERVICE: 12/09/2020 us Maryan Torres MD IMG OB ORDER SUNSHINE Final Result documented in this encounter Visit Diagnoses Diagnosis resulting from assisted reproductive technology, antepartum- Primary resulting from assisted reproductive technology, antepartum documented in this encounter Care Teams Rolled Ham Lacer Relationship Specialty Start Date End Date [facility] Internal Medicine, Mp [address] [place] [address] PCP - General 11/03/15 10/01/23 documented as of this encounter
--- OUTSIDE RECORDS SUMMARY | 2024-09-16 01:35 | XMS_ITS | Encounter Summary ---
Author Organization [facility] Address [address] [place] [address] Care Team Providers Care Edger Hand Name Role Phone [facility] Internal Medicine, Primary Care Provi darrel Encounter Details Date Type Department Care Team (Latest Contact Info) Description 11/16/2020 Travel Social History Tobacco Use Types Packs/Day Years [...] have Coronavirus / COVID-19? No / Unsure 11/16/2020 7:48 EDT documented as of this encounter Functional [...] on filedocumented in this encounter Care Teams Edger Hand Relationship Specialty Start Date End Date [facility] Internal Medicine, [place] [address] [place] [address] PCP - General 11/03/15 10/01/23 documented as of this encounter
--- OUTSIDE RECORDS SUMMARY | 2024-09-16 01:35 | XMS_ITS | Encounter Summary ---
Author Organization [facility] Address [address] [place] [address] Care Team Providers Care Electrical Instrument Repairer Name Role Phone [facility] Internal Medicine, Primary Care Provi darrel Encounter Details Date Type Department Care Team (Late st Contact Info) Description 12/09/2020 Orders Only [facility] Reproductive Medicine & Infertility Center - [facility] [address] [place], [place] [phone] Michelle Byers MD , unspecified gestational age (Primary Dx) Social History Tobacco Use Types [...] documented in this encounter Progress Notes * Michelle Byers MD - 12/09/2020 0846 EDT Reanna Espinoza is s/p frozen embryo transfer, expected to be 7w2d by transfer date. No significant interval growth of gestational sac. Options given of US in 1 week and betaHCG today, possibly needing repeat in 2 days. Patient also offered option of stopping ANNA as this is likely a failing . She opts for hCG today. Patient discussed with Dr. Sena prior to counseling patient. Michelle Byers MD Fellow, Reproductive Endocrinology and Infertility 12/09/20 documented in this encounter Plan of Treatment Not on file documented as of this encounter Results * (ABNORMAL) QUANT BETA HCG, (12/09/2020 9:05 EDT) Beta HCG Quant, 226(H) <5 mIU/ml 12/09/2020 11:39 EDT [facility] Comment: NOTE: : Negative: Less than 5mIU/mL Indeterminant: Between 5 and 25 mIU/mL, recommend repeat testing in 48 hours Positive: Greater than 25 mIU/mL The results of this assay can be falsely lowered due to the consumption of Biotin. Blood VENOUS BLOOD / Unknown Venipuncture / Unknown 12/09/2020 9:05 EDT 12/09/2020 9:16 EDT us Maryan Torres MD CHEMISTRY & BLO OD GAS ORDERABLES Final Result [facility] [address] [place] [address] documented in this encounter Visit Diagnoses Diagnosis , unspecified gestational age- Primary documented in this encounter Care Teams Electrical Instrument Repairer Relationship Specialty Start Date End Date [facility] Internal Medicine, Mp [address] [place] [address] PCP - General 11/03/15 10/01/23 documented as of this encounter
--- OUTSIDE RECORDS SUMMARY | 2024-09-16 01:35 | XMS_ITS | Encounter Summary ---
Author Organization [facility] Address [address] [place] [address] Care Team Providers Care Fast Food Restaurant Manager Name Role Phone [facility] Internal Medicine, Primary Care Provi darrel Encounter Details Date Type Department Care Team (Late st Contact Info) Description 11/21/2020 7:45 EDT Phlebotomy Only [facility] ED Center 2 Phlebotomy [address] [place], [place] [id number] Security Messenger, Acc Phlebotomy resulting from assisted reproductive technology [...] Associated Diagnosis Comments QUANT BETA HCG, Routine 11/21/2020 8:02 EDT resulting from assisted reproductive technology in first trimester documented in this encounter Results * (ABNORMAL) QUANT BETA HCG, (11/21/2020 8:02 EDT) Beta HCG Quant, 306(H) <5 mIU/ml 11/21/2020 9:54 EDT [facility] Comment: NOTE: : Negative: Less than 5mIU/mL Indeterminant: Between 5 and 25 mIU/mL, recommend repeat testing in 48 hours Positive: Greater than 25 mIU/mL The results of this assay can be falsely lowered due to the consumption of Biotin. Blood VENOUS BLOOD / Unknown Venipuncture / Unknown 11/21/2020 8:02 EDT 11/21/2020 8:39 EDT us Maryan Torres MD CHEMISTRY & BLO OD GAS ORDERABLES Final Result [facility] [address] [place] [address] documented in this encounter Visit Diagnoses Diagnosis resulting from assisted reproductive technology in first trimester documented in this encounter Care Teams Fast Food Restaurant Manager Relationship Specialty Start Date End Date [facility] Internal Medicine, Mp [address] [place] [address] PCP - General 11/03/15 10/01/23 documented as of this encounter
--- OUTSIDE RECORDS SUMMARY | 2024-09-16 01:35 | XMS_ITS | Encounter Summary ---
Author Organization [facility] Address [address] [place] [address] Care Team Providers Care Continuous Process Coffee Roaster Name Role Phone Internal Medicine Primary Care Provi darrel Reason for Visit * Reason Onset Date Comments Coordination Of Care 11/02/2020 Encounter Details Date Type Department Care Team (Late st Contact Info) Description 11/02/2020 Telephone [facility] Reproductive Medicine & Infertility Center - [facility] [address] [place] [address] Johanne Khan, MALIA [address] [place] [address] Coordination Of Care Social History Tobacco Use [...] have Coronavirus / COVID-19? No / Unsure 11/02/2020 8:42 EDT documented as of this encounter Functional [...] encounter Miscellaneous Notes * Telephone Encounter - Johanne Khan RN - 11/02/2020 1515 EDT Telephoned patient to review results of labs and continued medication plan. Component Latest Ref Rng & Units 11/02/2020 Progesterone See Table ng/mL 25.5 Advised patient to continue 1.5mL progesterone daily. Next step is FET on Tuesday 11/07. Will follow up with specific scheduling instructions. Discussed with Dr Phillip. Pt verbalized understanding of plan. documented in this encounter Plan of Treatment Not on file documented as of this encounter Visit Diagnoses Not on filedocumented in this encounter Care Teams Continuous Process Coffee Roaster Relationship Specialty Start Date End Date [facility] Internal Medicine, Mp [address] [place] [address] PCP - General 11/03/15 10/01/23 documented as of this encounter
--- OUTSIDE RECORDS SUMMARY | 2024-09-16 01:35 | XMS_ITS | Encounter Summary ---
Author Organization [facility] Address [address] [place] [address] Care Team Providers Care Phlebotomy Technician Name Role Phone [facility] Internal Medicine, Primary Care Provi darrel Encounter Details Date Type Department Care Team (Latest Contact Info) Description 11/18/2020 Travel Social History Tobacco Use Types Packs/Day [...] have Coronavirus / COVID-19? No / Unsure 11/18/2020 7:34 EDT documented as of this encounter Functional [...] on filedocumented in this encounter Care Teams Phlebotomy Technician Relationship Specialty Start Date End Date [facility] Internal Medicine, [place] [address] [place] [address] PCP - General 11/03/15 10/01/23 documented as of this encounter
--- OUTSIDE RECORDS SUMMARY | 2024-09-16 01:35 | XMS_ITS | Encounter Summary ---
Author Organization [facility] Address [address] [place] [address] Care Team Providers Care Beauty Artist Name Role Phone [facility] Internal Medicine, Primary Care Provi darrel Encounter Details Date Type Department Care Team (Late st Contact Info) Description 06/24/2021 9:15 EST Phlebotomy Only [facility] ED Center 2 Phlebotomy [address] [place], [place] [phone] Commercial Door Installer, Acc Phlebotomy Encounter for assisted reproductive fertility cycle Social [...] Priority Date/Time Associated Diagnosis Comments PROGESTERONE Routine 06/24/2021 9:06 EST Encounter for assisted reproductive fertility cycle documented in this encounter Results * PROGESTERONE (06/24/2021 9:06 EST) Progesterone 31.3 See Table ng/mL 06/24/2021 10:29 EST [facility] Comment: Female Reference Ranges: [...] VENOUS BLOOD / Unknown Venipuncture / Unknown 06/24/2021 9:06 EST 06/24/2021 9:27 EST us Maryan Torres MD CHEMISTRY & BLO OD GAS ORDERABLES Final Result [facility] [address] [place] [address] documented in this encounter Visit Diagnoses Diagnosis Encounter for assisted reproductive fertility cycle Encounter for assisted reproductive fertility procedure cycle documented in this encounter Care Teams Beauty Artist Relationship Specialty Start Date End Date [facility] Internal Medicine, Mp [address] [place] [address] PCP - General 11/03/15 10/01/23 documented as of this encounter
--- OUTSIDE RECORDS SUMMARY | 2024-09-16 01:35 | XMS_ITS | Encounter Summary ---
Author Organization [facility] Address [address] [place] [address] Care Team Providers Care Fishing Rod Assembler Name Role Phone [facility] Internal Medicine, Primary Care Provi darrel Encounter Details Date Type Department Care Team (Late st Contact Info) Description 10/24/2020 8:45 EDT Phlebotomy Only [facility] ED Center 2 Phlebotomy [address] [place], [place] [id number] Assistant Manager Airside Operations, Acc Phlebotomy Encounter for assisted reproductive fertility [...] have Coronavirus / COVID-19? No / Unsure 10/24/2020 8:41 EDT documented as of this encounter Functional [...] Date/Time Associated Diagnosis Comments ESTRADIOL, ADULTS Routine 10/24/2020 8:4 8 EDT Encounter for assisted reproductive fertility cycle documented in this encounter Results * ESTRADIOL, ADULTS (10/24/2020 8:48 EDT) Estradiol 251 See Note pg/mL 10/24/2020 10:22 EDT [facility] Comment: NOTE: FEMALE REFERENCE RANGES: [...] VENOUS BLOOD / Unknown Venipuncture / Unknown 10/24/2020 8:48 EDT 10/24/2020 9:01 EDT us Maryan Torres MD CHEMISTRY & BLO OD GAS ORDERABLES Final Result [facility] [address] [place] [address] documented in this encounter Visit Diagnoses Diagnosis Encounter for assisted reproductive fertility cycle Encounter for assisted reproductive fertility procedure cycle documented in this encounter Care Teams Fishing Rod Assembler Relationship Specialty Start Date End Date [facility] Internal Medicine, Mp [address] [place] [address] PCP - General 11/03/15 10/01/23 documented as of this encounter
--- OUTSIDE RECORDS SUMMARY | 2024-09-16 01:35 | XMS_ITS | Encounter Summary ---
Author Organization [facility] Address [address] [place] [address] Care Team Providers Care Gum Machine Filler Name Role Phone [facility] Internal Medicine, Primary Care Provi darrel Reason for Referral * PARTNER MARKETING MANAGER (Routine) - Specialty Report Received Specialty Diagnoses / Procedures [facility] Referred To Contact Diagnoses resulting from assisted reproductive technology, antepartum Procedures OB FIRST TRIMESTER (LESS THAN 14 WEEKS) TRANSVAGINAL Maryan Jameson MD Phone: tel: fax: Referral ID Status Reason Start Date Expiration Date V isits Requested Visits Authorized [id number] Specialty Report Received 12/02/2020 1 1 Reason for Visit * PARTNER MARKETING MANAGER (Routine) - Specialty Report Received Specialty Diagnoses / Procedures [facility] Referred To Contact Diagnoses resulting from assisted reproductive technology, antepartum Procedures US OB FIRST TRIMESTER (LESS THAN 14 WEEKS) TRANSVAGINAL Maryan Jameson MD Phone: tel: fax: Referral ID Status Reason Start Date Expiration Date V isits Requested Visits Authorized [id number] Specialty Report Received 12/02/2020 1 1 Encounter Details Date Type Department Care Team (Latest Contact Info) Description 12/09/2020 8:00 EDT - 12/09/2020 23:59 EDT Hospital Encounter [facility] OBGYN Services - [address] [address] resulting from assisted reproductive technology, antepartum Discharge Disposition: Home or Self Care Social [...] estradioL (ESTRACE) 1 mg tablet Take 3 Tabs by mouth 2 times daily. 30 Tab 12/06/2020 01/02/2021 progesterone in oil 50 mg/mL injection Inject 1.5 mL into the muscle daily. 4 Vial 1 11/18/2020 01/02/2021 documented as of this encounter Discharge Disposition Disposition Code Departure Means Destination Home or Self Care documented in this encounter Plan of Treatment Not on file documented as of this encounter Procedures Procedure Name Priority Date/Time Associated Diagnosis Comments US OB FIRST TRIMESTER (LESS THAN 14 WEEKS) TRANSVAGINAL Routine 12/09/2020 9:37 EDT resulting from assisted reproductive technology, antepartum documented in this encounter Results * US [...] free fluid visualized Impression OB Transvaginal - 16153 1. Small gestational sac with no significant growth from prior, however this is a short interval study. 2. Normal ovaries. 3. No free fluid in the cul-de-sac. Follow-up draw bhCG today, see note in Epic. Comment ========= [...] free fluid visualized Impression OB Transvaginal - 99992 1. Small gestational sac with no significant growth from prior, howeverthis is a short interval study. 2. Normal ovaries. 3. No free fluid in the cul-de-sac. Follow-up draw [facility] [place], see note in Epic. Comment ========= O09.81 supervision of resulting from assisted reproductivetechnology. DATE OF SERVICE: 12/09/2020 Maryan Torres MD IMG US OB ORDER SUNSHINE Final Result documented in this encounter Visit Diagnoses Diagnosis resulting from assisted reproductive technology, antepartum documented in this encounter Care Teams Gum Machine Filler Relationship Specialty Start Date End Date [facility] Internal Medicine, [place] [address] [place] [address] PCP - General 11/03/15 10/01/23 documented as of this encounter
--- OUTSIDE RECORDS SUMMARY | 2024-09-16 01:35 | XMS_ITS | Encounter Summary ---
Author Organization [facility] Address [address] [place] [address] Care Team Providers Care Frog Or Oyster Farmworker Name Role Phone Internal Medicine, Primary Care Provi darrel Encounter Details Date Type Department Care Team (Late st Contact Info) Description 10/24/2020 Documentation Visit [facility] Rep[facility]ductive Medicine & Infertility Center - [facility] [address] [place] [address] Micah Phillip MD [address] [place] [address] [place] [phone] Social History Tobacco Use Types Packs/Day Years [...] documented in this encounter Progress Notes * Micah Phillip MD - 10/24/2020 1539 EDT IVF Plan Note Patient's labs and IVF plan reviewed. Component Latest Ref Rng & Units 10/24/2020 Estradiol See Note pg/mL 251 Please contact the patient and let her know: ??? Adequate FET E2 check ??? No dose adjustments needed prior to lining check US Thank you! Electronically signed by: Micah Phillip MD, PGY7 Fellow Reproductive Endocrinology & Infertility [facility] 10/24/2020 / 15:44 documented in this encounter Plan of Treatment Not on file documented as of this encounter Visit Diagnoses Not on filedocumented in this encounter Care Teams Frog Or Oyster Farmworker Relationship Specialty Start Date End Date [facility] Internal Medicine, [place] [address] [place] [address] PCP - General 11/03/15 10/01/23 documented as of this encounter
--- OUTSIDE RECORDS SUMMARY | 2024-09-16 01:35 | XMS_ITS | Encounter Summary ---
Author Organization [facility] Address [address] [place] [address] Care Team Providers Care Drilling Field Professional Name Role Phone [facility] Internal Medicine, Primary Care Provi darrel Reason for Referral * ORACLE ADF CONSULTANT (Routine/Next Available) - Specialty Report Received Specialty Diagnoses / Procedures Referred By Serene martinez Referred To Contact Diagnoses Encounter for assisted reproductive fertility cycle Procedures US BASELINE INVITRO Maryan Jameson MD Phone: tel: fax: Referral ID Status Reason Start Date Expiration Date V isits Requested Visits Authorized [id number] Specialty Report Received 05/03/2021 1 1 Reason for Visit * ORACLE ADF CONSULTANT (Routine/Next Available) - Specialty Report Received Specialty Diagnoses / Procedures Referred By Serene martinez Referred To Contact Diagnoses Encounter for assisted reproductive fertility cycle Procedures US BASELINE INVITRO Maryan Jameson MD Phone: tel: fax: Referral ID Status Reason Start Date Expiration Date V isits Requested Visits Authorized [id number] Specialty Report Received 05/03/2021 1 1 Encounter Details Date Type Department Care Team (Latest Contact Info) Description 06/09/2021 8:00 EDT - 06/09/2021 23:59 EDT Hospital Encounter [facility] [address] [address] Encounter for assisted reproductive fertility cycle Discharge [...] Associated Diagnosis Comments US BASELINE INVITRO Routine 06/09/2021 8:40 EDT Encounter for assisted reproductive fertility cycle documented in this encounter Results * US BASELINE INVITRO (06/09/2021 8:40 EDT) Anatomical Region Laterality Modality Pelvis Ultrasound 06/09/2021 8:42 EDT Narrative 06/09/2021 9:01 EDT Indication Baseline for FET. Assessment LMP on 06/06/2021. Day of cycle: 4. Uterus ======= Uterus: ?Visualized Uterus position: ?? Anteverted Endometrium: ?? Thin endometrium Cervix details: ?Normal appearance Endometrial thickness, total ?? 2.7 mm Fibroids: ??Fibroids identified Findings: ??4 - Intramural - does not contact endometrium. Left lateral wall/anterior D1 14.1 mm D2 16.7 mm D3 13.8 mm Mean ?? 14.8 mm Vol ?1.688 cm cubed Right Ovary Rt ovary: ??Visualized Outline: ?? Smooth Rt ovary morphology: ?? Normal Rt ovary other findings: ?? quiescent Left Ovary Lt ovary: ??Visualized Outline: ?? Smooth Lt ovary morphology: ?? normal Lt ovary other findings: ?? quiescent Cul de Sac Normal. No free fluid visualized. Method ======== Transvaginal ultrasound examination, probe #7. View: Good view. Impression Baseline - 07051 1. Normal-appearing anteverted uterus with thin endometrial stripe. 2. Single anterior left-sided intramural fibroid, stable from previous exams. 3. Normal-appearing quiescent ovaries bilaterally. 4. No pelvic free fluid. Follow-up Labs deferred given normal baseline US, cleared to start FET cycle. Comment ========= Z31.83 encounter for assisted reproductive fertility procedure cycle. Prior ultrasounds reviewed and compared to today's ultrasound., Ultrasound findings discussed w/patient. DATE OF SERVICE: 06/09/2021 Procedure Note Maryan Jameson MD - 06/09/2021 Indication Baseline for FET. Assessment LMP on 06/06/2021. Day of cycle: 4. Uterus ======= Uterus: Visualized Uterus position: Anteverted Endometrium: Thin endometrium Cervix details: Normal appearance Endometrial thickness, total 2.7 mm Fibroids: Fibroids identified Findings: 4 - Intramural - does not contact endometrium. Left lateralwall/anterior D1 14.1 mm D2 16.7 mm D3 13.8 mm Mean 14.8 mm Vol 1.688 cm cubed Right Ovary Rt ovary: Visualized Outline: Smooth Rt ovary morphology: Normal Rt ovary other findings: quiescent Left Ovary Lt ovary: Visualized Outline: Smooth Lt ovary morphology: normal Lt ovary other findings: quiescent Cul de Sac Normal. No free fluid visualized. Method ======== Transvaginal ultrasound examination, probe #7. View: Good view. Impression Baseline - 75297 1. Normal-appearing anteverted uterus with thin endometrial stripe. 2. Single anterior left-sided intramural fibroid, stable from previousexams. 3. Normal-appearing quiescent ovaries bilaterally. 4. No pelvic free fluid. Follow-up Labs deferred given normal baseline US, cleared to start FET cycle. Comment ========= Z31.83 encounter for assisted reproductive fertility procedure cycle.Prior ultrasounds reviewed and compared to today's ultrasound., Ultrasoundfindings discussed w/patient. DATE OF SERVICE: 06/09/2021 us Maryna Torres MD IMG US OB ORDER SUNSHINE Final Result documented in this encounter Visit Diagnoses Diagnosis Encounter for assisted reproductive fertility cycle Encounter for assisted reproductive fertility procedure cycle documented in this encounter Care Teams Drilling Field Professional Relationship Specialty Start Date End Date [facility] Internal Medicine, [place] [address] [place] [address] PCP - General 11/03/15 10/01/23 documented as of this encounter
--- OUTSIDE RECORDS SUMMARY | 2024-09-16 01:35 | XMS_ITS | Encounter Summary ---
Author Organization [facility] Address [address] [place] [address] Care Team Providers Care Loading Shovel Oiler Name Role Phone Internal Medicine Primary Care Provi darrel Reason for Visit * Reason Onset Date Comments Coordination Of Care 10/31/2020 Encounter Details Date Type Department Care Team (Late st Contact Info) Description 10/31/2020 Telephone [facility] Reproductive Medicine & Infertility Center - [facility] [address] [place] [address] Johanne Khan, MALIA [address] [place] [address] Coordination Of Care Social History Tobacco Use [...] Telephone Encounter - Johanne Khan RN - 10/31/2020 1337 EDT Telephoned patient to review results of labs and continued medication plan. Left detailed message. 12.1mm endometrial lining on US today Advised patient to stop lupron and start progesterone as outlined in FET calendar. Next step is progesterone blood draw on 11/02. Discussed with Dr Phillip. Asked pt to call back to confirm receipt of message and understanding of plan. documented in this encounter Plan of Treatment Not on file documented as of this encounter Visit Diagnoses Not on filedocumented in this encounter Care Teams Loading Shovel Oiler Relationship Specialty Start Date End Date [facility] Internal Medicine, [place] [address] [place] [address] PCP - General 11/03/15 10/01/23 documented as of this encounter
--- OUTSIDE RECORDS SUMMARY | 2024-09-16 01:35 | XMS_ITS | Encounter Summary ---
Author Organization [facility] Address [address] [place] [address] Care Team Providers Care Gas Leak Inspector Name Role Phone [facility] Internal Medicine, Primary Care Provi darrel Encounter Details Date Type Department Care Team (Latest Contact Info) Description 10/24/2020 Travel Social History Tobacco Use Types Packs/Day [...] on filedocumented in this encounter Care Teams Gas Leak Inspector Relationship Specialty Start Date End Date [facility] Internal Medicine, [place] [address] [place] [address] PCP - General 11/03/15 10/01/23 documented as of this encounter
--- OUTSIDE RECORDS SUMMARY | 2024-09-16 01:35 | XMS_ITS | Encounter Summary ---
Author Organization [facility] Address [address] [place] [address] Care Team Providers Care Head Boys Tennis Coach Name Role Phone [facility] Internal Medicine, Primary Care Provi darrel Reason for Referral * MOUNTER FLUTES AND PICCOLOS (Routine/Next Available) - Specialty Report Received Specialty Diagnoses / Procedures [facility] Referred To Contact Diagnoses Encounter for assisted reproductive fertility cycle Procedures US CIRCULAR KNIFE CUTTER MACHINE EXAM (BALBIR ONLY) Maryan Jameson MD Phone: tel: fax: Referral ID Status Reason Start Date Expiration Date V isits Requested Visits Authorized [id number] Specialty Report Received 06/19/2021 1 1 Reason for Visit * Reason Onset Date Comments Results 06/17/2021 Encounter Details Date Type Department Care Team (Late st Contact Info) Description 06/17/2021 Telephone [facility] Reproductive Medicine & Infertility Center - [facility] [address] [place] [address] Eddie Gó[place] [id number] [phone] Results Social History Tobacco Use Types Packs/Day [...] Addendum Note - Meliza Moise RN - 06/19/2021 0840 ESTAddended by: MELIZA MOISE on: 06/19/2021 08:40 Modules accepted: Orders * Telephone Encounter - Meliza Moise RN - 06/19/2021 0838 EST Message sent to patient to review results of labs and continued medication plan. Component Latest Ref Rng & Units 06/16/2021 Estradiol See Note pg/mL 236 Advised patient to continue 3 mg estrace BID. Next step is lining check 06/22. Discussed with Dr Warner. Asked pt to write back to confirm receipt of message and understanding of plan. * Telephone Encounter - Eddie Gómez MD - 06/17/2021 1421 EDT MyChart message sent to patient to advise that E2 result is still pending (drawn at [facility], will be couriered to [facility] sometime today and they are unsure when the result will be available). documented in this encounter Plan of Treatment Not on file documented as of this encounter Results * US CIRCULAR KNIFE CUTTER MACHINE EXAM (BALBIR ONLY) (06/22/2021 8:09 EST) Anatomical [...] Good view. Impression USE (IVF Follicular) - 58943 1. Normal-appearing anteverted uterus. 2. Trilaminar endometrium, [...] Good view. Impression USE (IVF Follicular) - 18611 1. Normal-appearing anteverted uterus. 2. Trilaminar endometrium, [...] OF SERVICE: 06/22/2021 us Maryan Torres MD IMG US OB ORDER SUNSHINE Final Result documented in this encounter Visit Diagnoses Diagnosis Encounter for assisted reproductive fertility cycle- Primary Encounter for assisted reproductive fertility procedure cycle Encounter for assisted reproductive fertility cycle Encounter for assisted reproductive fertility procedure cycle documented in this encounter Care Teams Head Boys Tennis Coach Relationship Specialty Start Date End Date [facility] Internal Medicine, [place] [address] [place] [address] PCP - General 11/03/15 10/01/23 documented as of this encounter
--- OUTSIDE RECORDS SUMMARY | 2024-09-16 01:35 | XMS_ITS | Encounter Summary ---
Author Organization [facility] Address [address] [place] [address] Care Team Providers Care Flexographic Press Helper Name Role Phone [facility] Internal Medicine, Primary Care Provi darrel Encounter Details Date Type Department Care Team (Latest Contact Info) Description 11/02/2020 Travel Social History Tobacco Use Types Packs/Day [...] on filedocumented in this encounter Care Teams Flexographic Press Helper Relationship Specialty Start Date End Date [facility] Internal Medicine, [place] [address] [place] [address] PCP - General 11/03/15 10/01/23 documented as of this encounter
--- OUTSIDE RECORDS SUMMARY | 2024-09-16 01:35 | XMS_ITS | Encounter Summary ---
Author Organization [facility] Address [address] [place] [address] Care Team Providers Care Material Assembler Name Role Phone [facility] Internal Medicine, Primary Care Provi darrel Reason for Visit * Reason Comments Follow-up endometrium lining c heck Encounter Details Date Type Department Care Team (Late st Contact Info) Description 10/31/2020 8:15 EDT Office Visit [facility] Reproductive Medicine & Infertility Center - [address] [id number] Sue Hyman MD [address] [place] [address], [facility] [address] [place] [address] Encounter for assisted reproductive fertility [...] Progress Notes * Micah Phillip MD - 10/31/2020 0815 EDT Patient seen 10/31/2020 for FET endometrial lining check See ultrasound report and USE flowsheet for full details. Patient discussed with attending Dr. Hyman. Micah Phillip MD, PGY7 BALBIR Fellow 10/31/2020 / 12:01 Attestation statement: I discussed the patient with the Fellow at the time of the patient's visit. I agree with the findings and plan of care. Endometrial thickness adequate, clear to start IM prog per calendar. Sue Hyman MD Reproductive Endocrinology and Infertility * Micah Phillip MD - 10/31/2020 0815 EDT Patient seen 10/31/2020 for FET endometrium lining check See ultrasound report and USE flowsheet for full details. Patient clear to start IM progesterone per calendar. Patient discussed with attending Dr. Hyman. Micah Phillip MD, PGY7 BALBIR Fellow 10/31/2020 / 13:04 documented in this encounter Plan of Treatment Not on file documented as of this encounter Visit Diagnoses Diagnosis Encounter for assisted reproductive fertility cycle- Primary Encounter for assisted reproductive fertility procedure cycle documented in this encounter Care Teams Material Assembler Relationship Specialty Start Date End Date [facility] Internal Medicine, [place] [address] [place] [address] PCP - General 11/03/15 10/01/23 documented as of this encounter
--- OUTSIDE RECORDS SUMMARY | 2024-09-16 01:35 | XMS_ITS | Encounter Summary ---
Author Organization [facility] Address [address] [place] [address] Care Team Providers Care Fashion Patternmaker Name Role Phone [facility] Internal Medicine, Primary Care Provi darrel Reason for Visit * Reason Onset Date Comments Labs Only 11/18/2020 Encounter Details Date Type Department Care Team (Late st Contact Info) Description 11/18/2020 Telephone [facility] Reproductive Medicine & Infertility Center - [facility] [address] [place] [address] Lanette Pagan RN Labs Only Social History Tobacco Use Types Packs/Day Years [...] Date estradioL (ESTRACE) 1 mg tablet Take 3 Tabs by mouth 2 times daily. 50 Tab 11/18/2020 11/29/2020 progesterone in oil 50 mg/mL injection Inject 1.5 mL into the muscle daily. 4 Vial 1 11/18/2020 01/02/2021 documented in this encounter Miscellaneous Notes * Telephone Encounter - Lanette Pagan RN - 11/18/2020 1007 EDT Component Latest Ref Rng & Units 11/16/2020 11/18/2020 Quant Beta HCG, Preg <5 mIU/ml 45 (H) 105 (H) PC to Reanna to review HCG result from today. Advised of appropriate rise. Will repeat x1 more andthen proceed to schedule viability scan between weeks 6-7 . Progesterone refills sent to [facility] and small amount of PO estrace sent to [facility] so she can cone picker when she has labs drawn. She will present to lab on 11/21 ( 72 hr interval) in order to best accommodate her schedule. documented in this encounter Plan of Treatment Not on file documented as of this encounter Results * (ABNORMAL) QUANT BETA HCG, (11/21/2020 8:02 EDT) Beta HCG Quant, 306(H) <5 mIU/ml 11/21/2020 9:54 EDT [facility] Comment: NOTE: : Negative: [...] OD GAS ORDERABLES Final Result [facility] [address] [place] [address] documented in this encounter Visit Diagnoses Diagnosis resulting from assisted reproductive technology in first trimester- Primary documented in this encounter Discontinued Medications Medication Sig Discontinue Reason Start Date End Da te norgestimate-ethinyl estradioL (ORTHO-CYCLEN, 28,) 0.25-35 mg-mcg per tablet Take 1 Tab by mouth daily. Take active tabs continuously. Discard inactive tabs. 09/27/2020 11/18/2020 leuprolide (LUPRON) 1 mg/0.2 mL kit Inject 20 units into the skin. Decrease to 10 units when directed. 10/04/2020 11/18/2020 estradioL (ESTRACE) 1 mg tablet Take 3 Tabs by mouth 2 times daily. Reorder 10/04/2020 11/18/2020 progesterone in oil 50 mg/mL injection Inject 1.5 mL into the muscle daily. Reorder 10/04/2020 11/18/2020 documented as of this encounter Care Teams Fashion Patternmaker Relationship Specialty Start Date End Date [facility] Internal Medicine, [place] [address] [place] [address] PCP - General 11/03/15 10/01/23 documented as of this encounter
--- OUTSIDE RECORDS SUMMARY | 2024-09-16 01:35 | XMS_ITS | Encounter Summary ---
Author Organization [facility] Address [address] [place] [address] Care Team Providers Care Manufacturing Coordinator Name Role Phone [facility] Internal Medicine, Primary Care Provi darrel Encounter Details Date Type Department Care Team (Late st Contact Info) Description 11/07/2020 12:00 EDT - 11/07/2020 12:21 EDT Hospital Encounter [facility] - [address] [address] Maryan Jameson MD [address] [place] [address] 4 [place] [address] Infertility, female, primary (Primary Dx); Encounter for assisted reproductive fertility procedure cycle Discharge Disposition: Home or Self Care [...] this encounter Discharge Instructions * Discharge Instructions* Lanette Pagan RN - 11/07/2020 13:26 EDT 1. Avoid strenuous activity and heavy lifting [...] your embryo transfer. 5. Due for HCG 11/16, 11/18, and 11/20- order at [facility] documented in this encounter Medications at Time of Discharge estradioL (ESTRACE) 1 mg tablet Take 3 Tabs by mouth 2 times daily. 200 Tab 10/04/2020 11/18/2020 leuprolide (LUPRON) 1 mg/0.2 mL kit Inject 20 units into the skin. Decrease to 10 units when directed. 2 Each 10/04/2020 11/18/2020 norgestimate-eth inyl estradioL (ORTHO-CYCLEN, 28,) 0.25-35 mg-mcg per tablet Take 1 Tab by mouth daily. Take active tabs continuously. Discard inactive tabs. 28 Tab 09/27/2020 11/18/2020 progesterone in oil 50 mg/mL injection Inject 1.5 mL into the muscle daily. 3 Vial 3 10/04/2020 11/18/2020 documented as of this encounter Discharge Disposition Disposition Code Departure Means Destination Home or Self Care documented in this encounter Procedure Notes * Maryan Jameson MD - 11/07/2020 1230 EDTProcedure(s): HI EMBRYO TRANSFER INTRAUTERINE Pre-Procedure Diagnose(s): Encounter for assisted reproductive fertility procedure cycle Post-Procedure Diagnose(s): Encounter for assisted reproductive fertility procedure cycle EMBRYO TRANSFER PROCEDURE NOTE Consents verified and a standard WHO surgical time out verification procedure performed prior to start of embryo transfer. The patient, providers, and the embryology lab were all in agreement to transfer 2 embryo(s). The grades were: 4AA, 4BB The patient will have remaining cryopreserved 4. Prior to the embryo transfer the patient received IM progesterone in the preop holding area administered by the RN sales floor team member. Endometrial lining measured 12 mm; excellent visualization. Sterile speculum inserted, cervix cleaned with sterile culture media. Endocervix cleaned of cervical mucus with small cotton swab. No bleeding occurred. Under ultrasound guidance, the Salcedo embryo transfer catheter was passed without difficulty in two attempts into the endocervical canal to the level of the internal cervical os. The lab was then notified to load the embryos into the inner catheter. The stylette guide was then removed from the outer sheath, and the inner catheter was introduced to approximately 1 cm from the uterine fundus under ultrasound guidance. The embryos were then transferred into the uterine cavity. After a 15 second pause, the catheter was removed and returned to the lab. No uterine cramping occurred. The speculum was then removed. The patient had a full bladderthroughout the procedure. She then rested in the supine position 3 minutes. She then immediately ambulated to the restroom to empty her bladder. Transfer performed by Dr. Thompson, assisted by Dr. Phillip. First serum HCG to be drawn on 11/16/20. Attestation statement: I performed or was present during the raymundo or critical portions of the visit and participated in the management of the patient. I agree with the findings and plan of care documented in the resident's/fellow's note. Electronically signed by: Micah Phillip MD, PGY7 Fellow Reproductive Endocrinology & Infertility [facility] 11/07/2020 / 12:22 * Maryan Jameson MD - 11/07/2020 1230 EDT Images from the original note were not included. [facility] Reproductive Medicine Women???s [facility] Care [place]-Level 4 [facility] EMBRYO TRANSFER PROCEDURE NOTE REPRODUCTIVE MEDICINE & [...] on the number of embryo(s) to transfer. The disposition of the remaining unfertilized oocytes, [...] and inspected by the embryology team and 1 embryo(s) was retained. A second transfer was performed as described above. There was no blood, mucous, or endometrium on the surface of the catheter. Plan: 1.) Continue hormonal replacement per her ART protocol ( progesterone and or estrogen). 2.) Patient to call with spotting or bleeding 3.) Serial hCG's to be performed 10 and 12 days post transfer 4.) Discharge to home per [facility] protocol documented in this encounter Plan of Treatment Not on file documented as of this encounter Procedures Procedure Name Priority Date/Time Associated Diagnosis Comments POC IVF/[facility] US GUIDANCE Routine 11/07/2020 12:22 EDT documented in this encounter Results * POC IVF/BALBIR US GUIDANCE (11/07/2020 12:22 EDT) Narrative 11/07/2020 12:22 EDT This is a non-reportable exam. us Micah Phillip MD IMG US POC ORDERABLES Leticia robin Result documented in this encounter Visit Diagnoses Diagnosis Infertility, female, primary- Primary Female infertility of unspecified origin Encounter for assisted reproductive fertility procedure cycle documented in this encounter Administered Medications Inactive Administered Medications - up to 3 most recent administrations Medication Order MAR Action Action Date Dose Rate Site progesterone in oil injection 100 mg 100 mg, intramuscular, Once (Without Time Specified), 1 dose, Starting on Sat11/07/20 at 1200, Until Sat11/07/20 at 1331, Routine Given 11/07/2020 13:31 EDT 100 mg Left Gluteus Medius/Ventrogluteal documented in this encounter Care Teams Manufacturing Coordinator Relationship Specialty Start Date End Date [facility] Internal Medicine, Ariel Matthews[address] [place] [address] PCP - General 11/03/15 10/01/23 documented as of this encounter
--- OUTSIDE RECORDS SUMMARY | 2024-09-16 01:35 | XMS_ITS | Encounter Summary ---
Author Organization [facility] Address [address] [place] [address] Care Team Providers Care Tailings Dam Laborer Name Role Phone [facility] Internal Medicine, Primary Care Provi darrel Encounter Details Date Type Department Care Team (Late st Contact Info) Description 05/24/2021 Orders Only [facility] Infertility [facility] - [address] [address] Meliza Moise RN Social History Tobacco Use Types Packs/Day [...] the muscle daily. 3 Each 05/24/2021 1 estradioL (ESTRACE) 1 mg tablet Take 3 Tablets by mouth 2 times daily. 200 Tablet 05/24/2021 1 leuprolide (LUPRON) 1 mg/0.2 mL kit Inject 20 units into the skin. Decrease to 10 units when directed. 2 Each 05/24/2021 1 documented in this encounter Progress Notes * Meliza Moise, MALIA - 05/24/2021 1423 EDT FET medications ordered. documented in this encounter Plan of Treatment Not on file documented as of this encounter Visit Diagnoses Not on filedocumented in this encounter Care Teams [place] Laborer Relationship Specialty Start Date End Date [facility] Internal Medicine, [address] [place] [address] PCP - General 11/03/15 10/01/23 documented as of this encounter
--- OUTSIDE RECORDS SUMMARY | 2024-09-16 01:35 | XMS_ITS | Encounter Summary ---
Author Organization [facility] Address [address] [place] [address] Care Team Providers Care Dairy Technician Name Role Phone Internal Medicine Primary Care Provi darrel Reason for Visit * Reason Onset Date Comments Results 12/20/2020 Encounter Details Date Type Department Care Team (Late st Contact Info) Description 12/20/2020 Telephone [facility] - [address] [address] [place] [address] [place], [place] [id number] Results Social History Tobacco Use Types Packs/Day [...] encounter Miscellaneous Notes * Telephone Encounter - Micah Phillip MD - 12/20/2020 1053 EDT TELEPHONE CALL TC to Reanna to reach out regarding a f/u HCG we asked her to complete. VM reached and message left. I asked her to reach back out to us either by [employer] or by phone to let us know she got our messages and confirm when she is available to go to the lab so we can know to expect the result. RN team notified of this call too,. Electronically signed by: Micah Phillip MD, PGY7 Fellow Reproductive Endocrinology & Infertility [facility] 12/20/2020 / 10:55 documented in this encounter Plan of Treatment Not on file documented as of this encounter Visit Diagnoses Not on filedocumented in this encounter Care Teams Dairy Technician Relationship Specialty Start Date End Date [facility] Internal Medicine, [place]p [address] [place] [address] PCP - General 11/03/15 10/01/23 documented as of this encounter
--- OUTSIDE RECORDS SUMMARY | 2024-09-16 01:35 | XMS_ITS | Encounter Summary ---
Author Organization [facility] Address [address] [place] [address] Care Team Providers Care Accounts Payable Or Receivable Clerk Name Role Phone [facility] Internal Medicine, Primary Care Provi darrel Reason for Visit * Reason Comments Ultrasound Encounter Details Date Type Department Care Team (Late st Contact Info) Description 06/09/2021 8:15 EDT Office Visit [facility] - [address] [phone] Maryan Jameson MD [address] [facility], [facility] [address] [place] [address] Female infertility, secondary (Primary Dx); Encounter for assisted reproductive fertility cycle Social [...] Progress Notes * Maryan Jameson MD - 06/09/2021 0815 EDT Patient seen 06/09/2021 for FET baseline US. See ultrasound report and USE flowsheet for full details. Patient discussed with attending Dr. Maryan Torres. Nathalia Castillo DO, PGY5 [facility] Fellow 06/09/2021 / 9:21 Attestation statement: I discussed the patient with the resident/fellow at the time of the visit. Iagree with the findings and the plan of care documented in the resident's/fellow's note. * Nathalia Castillo DO - 06/09/2021 0815 EDT FET Plan Note (FET #4) Patient's US, labs, and IVF plan reviewed with attending Dr. Maryan Torres. IVF FLOWSHEET (USE FORM) 06/09/2021 Checklist: LMP 06/06/2021 Checklist: Lupron Start Checklist: Cycle Type FET Checklist: Cycle Number 4 Checklist: Plan (No Data) Medications: RX Day Baseline Medications: RX Date 06/09/2021 Medications: Use RX HMG Start Medications: Use RX FSH Labs: E2 Deferred Labs: P4 Deferred Uterus: Endometrial Thickness 2.7 Uterus: Trilaminar No Uterus: Endometrial Cavity Fluid No Patient has been informed of the following plan: ??? Clear baseline US today, labs deferred. ??? Cleared to start estrogen per cycle calendar. Nathalia Castillo DO, PGY5 Fellow Reproductive Endocrinology & Infertility [facility] 06/09/2021 / 9:26 documented in this encounter H&P Notes * Nathalia Castillo DO - 06/09/2021 0815 EDT documented in this encounter Miscellaneous Notes * Addendum Note - Eddie Langford MD - 06/09/2021 0815 EDTAddended by: EDDIE LANGFORD on: 06/27/2021 08:51 Modules accepted: Orders documented in this encounter Plan of Treatment Not on file documented as of this encounter Visit Diagnoses Diagnosis Female infertility, secondary- Primary Female infertility of unspecified origin Encounter for assisted reproductive fertility cycle Encounter for assisted reproductive fertility procedure cycle documented in this encounter Care Teams Accounts Payable Or Receivable Clerk Relationship Specialty Start Date End Date [facility] Internal Medicine, [address] [place] [address] PCP - General 11/03/15 10/01/23 documented as of this encounter
--- OUTSIDE RECORDS SUMMARY | 2024-09-16 01:35 | XMS_ITS | Encounter Summary ---
Author Organization [facility] Address [address] [place] [address] Care Team Providers Care Water Safety Teacher Name Role Phone [facility] Internal Medicine, Primary Care Provi darrel Encounter Details Date Type Department Care Team (Latest Contact Info) Description 11/21/2020 Travel Social History Tobacco Use Types Packs/Day [...] on filedocumented in this encounter Care Teams Water Safety Teacher Relationship Specialty Start Date End Date [facility] Internal Medicine, [place] [address] [place] [address] PCP - General 11/03/15 10/01/23 documented as of this encounter
--- OUTSIDE RECORDS SUMMARY | 2024-09-16 01:35 | XMS_ITS | Encounter Summary ---
Author Organization [facility] Address [address] [place] [address] Care Team Providers Care Underwriting Specialist Name Role Phone [facility] Internal Medicine, Primary Care Provi darrel Encounter Details Date Type Department Care Team (Latest Contact Info) Description 12/09/2020 Documentation Visit [facility] Reproductive Medicine & Infertility Center - [facility] [address] [place] [address] Lanette Pagan RN , unspecified gestational age (Primary Dx) Social [...] Associated Diagnosis Comments QUANT BETA HCG, Routine 12/09/2020 9:05 EDT , unspecified gestational age documented in this encounter Results * (ABNORMAL) QUANT BETA HCG, (12/09/2020 9:05 EDT) Beta HCG Quant, 226(H) <5 mIU/ml 12/09/2020 11:39 EDT [facility] Comment: NOTE: : Negative: [...] & BLO OD GAS ORDERABLES Final Result [facility] [address] [place] [address] documented in this encounter Visit Diagnoses Diagnosis , unspecified gestational age- Primary documented in this encounter Care Teams Underwriting Specialist Relationship Specialty Start Date End Date [facility] Internal Medicine, M[address] [place] [address] PCP - General 11/03/15 10/01/23 documented as of this encounter
--- OUTSIDE RECORDS SUMMARY | 2024-09-16 01:35 | XMS_ITS | Encounter Summary ---
Author Organization [facility] Address [address] [place] [address] Care Team Providers Care Back Winder Name Role Phone [facility] Internal Medicine, Primary Care Provi darrel Reason for Visit * Reason Onset Date Comments Labs Only 06/24/2021 Encounter Details Date Type Department Care Team (Late st Contact Info) Description 06/24/2021 Telephone [facility] Reproductive Medicine & Infertility Center - [facility] [address] [place] [address] Michelle Byers MD Labs Only Social History Tobacco Use Types [...] encounter Miscellaneous Notes * Telephone Encounter - Michelle Byers MD - 06/24/2021 1054 EST Call to patient, P4 31. Per Dr. Lakeisha Torres, can decrease to 1mL from 1.5ml. P4 level should be re-drawn on day of transfer. Michelle Byers MD Fellow, Reproductive Endocrinology and Infertility documented in this encounter Plan of Treatment Not on file documented as of this encounter Visit Diagnoses Not on filedocumented in this encounter Care Teams Back Winder Relationship Specialty Start Date End Date [facility] Internal Medicine, [place] [address] [place] [address] PCP - General 11/03/15 10/01/23 documented as of this encounter
--- OUTSIDE RECORDS SUMMARY | 2024-09-16 01:35 | XMS_ITS | Encounter Summary ---
Author Organization [facility] Address [address] [place] [address] Care Team Providers Care Reflesher Name Role Phone [facility] Internal Medicine Primary Care Provi darrel Reason for Visit * Reason Comments Follow-up repeat viability sca n s/p FET Encounter Details Date Type Department Care Team (Late st Contact Info) Description 12/09/2020 8:00 EDT Office Visit [facility] Reproductive Medicine & Infertility Center - [address] [phone] Meliza Sena MD [address] [place] [address] [address] [place] [address] resulting from assisted reproductive technology in first trimester (Primary Dx) Social History Tobacco Use Types [...] Progress Notes * Micah Phillip MD - 12/09/2020 0800 EDT TC to Reanna to discuss HCG results after today's appointment. I discussed that this is a nonviable and she should at this point discontinue progesterone injections with bleeding expected in the next 2-3 days. Advised her to call us if no bleeding by Saturday, and it is her preference to avoid misoprostol if not necessary. Briefly discussed the quality of these embryos transferred (4AA, 4BB) in comparison to her remaining frozen embryos (3AA, 4BB, 2x cav m). Will discuss further with attending Dr. Thompson to advise on next steps and if any investigations should take place prior to FET. The patient does desire to move forward with additional treatment and we will reach out to her Saturday with an appointment date/time for cycle review. Electronically signed by: Micah Phillip MD, PGY7 Fellow Reproductive Endocrinology & Infertility [facility] 12/09/2020 / 17:09 documented in this encounter Plan of Treatment Not on file documented as of this encounter Visit Diagnoses Diagnosis resulting from assisted reproductive technology in first trimester- Primary documented in this encounter Care Teams Reflesher Relationship Specialty Start Date End Date [facility] Internal Medicine, Mp [address] [place] [address] PCP - General 11/03/15 10/01/23 documented as of this encounter
--- OUTSIDE RECORDS SUMMARY | 2024-09-16 01:35 | XMS_ITS | Encounter Summary ---
Author Organization [facility] Address [address] [place] [address] Care Team Providers Care Fan Balancer Name Role Phone [facility] Internal Medicine, Primary Care Provi darrel Encounter Details Date Type Department Care Team (Late st Contact Info) Description 11/07/2020 Orders Only [facility] Reproductive Medicine & Infertility Center - [facility] [address] [place], [place] [phone] Lanette Pagan RN Encounter for test, result unknown (Primary Dx) Social History Tobacco Use Types [...] Diagnosis Encounter for test, result unknown- Primary documented in this encounter Care Teams Fan Balancer Relationship Specialty Start Date End Date [facility] Internal Medicine, Mp [address] [place] [address] PCP - General 11/03/15 10/01/23 documented as of this encounter
--- OUTSIDE RECORDS SUMMARY | 2024-09-16 01:35 | XMS_ITS | Encounter Summary ---
Author Organization [facility] Address [address] [place] [address] Care Team Providers Care Pneudraulic Systems Mechanic Name Role Phone [facility] Internal Medicine, Primary Care Provi darrel Encounter Details Date Type Department Care Team (Late st Contact Info) Description 11/18/2020 7:45 EDT Phlebotomy Only [facility] 2 Phlebotomy [address] [place], [place] [phone] Medicaid Billing Specialist, Acc Phlebotomy Encounter for test, result unknown Social History Tobacco Use Types Packs/Day Years [...] Associated Diagnosis Comments QUANT BETA HCG, Routine 11/18/2020 7:58 EDT Encounter for test, result unknown documented in this encounter Results * (ABNORMAL) QUANT BETA HCG, (11/18/2020 7:58 EDT) Beta HCG Quant, 105(H) <5 mIU/ml 11/18/2020 9:11 EDT [facility] Comment: NOTE: : Negative: Less than 5mIU/mL Indeterminant: Between 5 and 25 mIU/mL, recommend repeat testing in 48 hours Positive: Greater than 25 mIU/mL The results of this assay can be falsely lowered due to the consumption of Biotin. Blood VENOUS BLOOD / Unknown Venipuncture / Unknown 11/18/2020 7:58 EDT 11/18/2020 8:10 EDT us Maryan Torres MD CHEMISTRY & BLO OD GAS ORDERABLES Final Result [facility] [address] [place] [address] documented in this encounter Visit Diagnoses Diagnosis Encounter for test, result unknown documented in this encounter Care Teams Pneudraulic Systems Mechanic Relationship Specialty Start Date End Date [facility] Internal Medicine, Mp [address] [place] [address] PCP - General 11/03/15 10/01/23 documented as of this encounter
--- OUTSIDE RECORDS SUMMARY | 2024-09-16 01:35 | XMS_ITS | Encounter Summary ---
Author Organization [facility] Address [address] [place] [address] Care Team Providers Care Tobacco Flavorer Name Role Phone [facility] Internal Medicine, Primary Care Provi darrel Encounter Details Date Type Department Care Team (Late st Contact Info) Description 11/02/2020 Orders Only [facility] Reproductive Medicine & Infertility Center - [facility] [address] [place], [place] [phone] Johanne Khan, MALIA [address] [place] [address] Encounter for assisted reproductive fertility cycle (Primary [...] Priority Date/Time Associated Diagnosis Comments PROGESTERONE Routine 11/02/2020 9:18 EDT Encounter for assisted reproductive fertility cycle documented in this encounter Results * PROGESTERONE (11/02/2020 9:18 EDT) Progesterone 25.5 See Table ng/mL 11/02/2020 11:09 EDT [facility] Comment: Female Reference Ranges: [...] VENOUS BLOOD / Unknown Venipuncture / Unknown 11/02/2020 9:18 EDT 11/02/2020 10:19 EDT us Sue Hyman MD CHEMISTRY & BLOOD GAS ORD ERABLES Final Result [facility] [address] [place] [address] documented in this encounter Visit Diagnoses Diagnosis Encounter for assisted reproductive fertility cycle- Primary Encounter for assisted reproductive fertility procedure cycle documented in this encounter Care Teams Tobacco Flavorer Relationship Specialty Start Date End Date [facility] Internal Medicine, [address] [place], [place] [address] PCP - General 11/03/15 10/01/23 documented as of this encounter
--- OUTSIDE RECORDS SUMMARY | 2024-09-16 01:35 | XMS_ITS | Encounter Summary ---
Author Organization [facility] Address [address] [place] [address] Care Team Providers Care Mri Technician Name Role Phone Internal Medicine, Primary Care Provi darrel Encounter Details Date Type Department Care Team (Latest Contact Info) Description 11/07/2020 12:22 EDT - 11/07/2020 23:59 EDT Hospital Encounter [facility] Reproductive Medicine & Infertility Center - [facility] [address] [place] [address] Discharge Disposition: Home or Self [...] a non-reportable exam. us Micah Phillip MD G US POC ORDERABLES Leticia l Result documented in this encounter Visit Diagnoses Not on filedocumented in this encounter Care Teams Mri Technician Relationship Specialty Start Date End Date [facility] Internal Medicine, M[address] [place] [address] PCP - General 11/03/15 10/01/23 documented as of this encounter
--- OUTSIDE RECORDS SUMMARY | 2024-09-16 01:35 | XMS_ITS | Encounter Summary ---
Author Organization [facility] Address [address] [place] [address] Care Team Providers Care Vest Busheler Name Role Phone [facility] Internal Medicine, Primary Care Provi darrel Reason for Referral * HUMAN RESOURCES OPERATIONS SPECIALIST (Routine/Next Available) - Specialty Report Received Specialty Diagnoses / Procedures Referred By Serene martinez Referred To Contact Diagnoses Recurrent loss Procedures US HYSTEROSONOGRAPHY Maryan Jameson MD Phone: tel: fax: Referral ID Status Reason Start Date Expiration Date V isits Requested Visits Authorized [id number] Specialty Report Received 01/02/2021 1 1 Reason for Visit * HUMAN RESOURCES OPERATIONS SPECIALIST (Routine/Next Available) - Specialty Report Received Specialty Diagnoses / Procedures Referred By Serene martinez Referred To Contact Diagnoses Recurrent loss Procedures US HYSTEROSONOGRAPHY Maryan Jameson MD Phone: tel: fax: Referral ID Status Reason Start Date Expiration Date V isits Requested Visits Authorized [id number] Specialty Report Received 01/02/2021 1 1 Encounter Details Date Type Department Care Team (Latest Contact Info) Description 02/20/2021 14:05 EDT - 02/20/2021 23:59 EDT Hospital Encounter [facility] O[facility] Services - [facility] [address] [place] [address] Recurrent loss Discharge Disposition: Home or Self Care Social [...] Name Priority Date/Time Associated Diagnosis Comments US HYSTEROSONOGRAPHY Routine 02/20/2021 14:13 EDT Recurrent loss documented in this encounter Results * US HYSTEROSONOGRAPHY (02/20/2021 14:13 EDT) Anatomical Region Laterality Modality Ultrasound 02/20/2021 14:2 0 EDT Addenda Addendum by Maryan Jameson MD on 02/20/2021 15:34 EDT Indication Recurrent loss. Assessment LMP on 02/09/2021. Day of cycle: 12. Cycle: regular cycle. Uterus ======= Uterus: ?Visualized Uterus position: ?? Anteverted Uterine malformations: None Myometrium: ?Fibroid Endometrium: ?? Trilaminar endometrium Cervix details: ?Normal appearance Fibroids: ??Fibroids identified Findings: ??Anterior, . 4 - Intramural - does not contact endometrium D1 20.9 mm D2 12.8 mm D3 17.3 mm Mean ?? 17.0 mm Vol ?2.423 cm cubed Procedure SIS procedure: risks,benefits and procedure reviewed with the patient. Consent signed. Speculum exam,cervix washed X 3 with betadine. Catheter placed and saline instilled under US observation. Patient tolerated procedure. Sonohysterogram shows normal cavity with no epithelial or intracavitary lesions Right Ovary Rt ovary: ??Visualized, normal appearance Outline: ?? Smooth Rt ovary morphology: ?? Normal Rt ovarian cyst(s): ?No cysts identified Rt ovarian follicle(s): ?No follicles identified Rt ovary other findings: ?? AFC 15 Left Ovary Lt ovary: ??Visualized, normal appearance Outline: ?? Smooth Lt ovary morphology: ?? Normal Lt ovarian cyst(s): ?No cysts identified Lt ovarian follicle(s): ?No follicles identified Lt ovary other findings: ?? AFC 12 with maturing follicle Cul de Sac Appears normal. No free fluid visualized. Impression Sonohysterogram - [id number] + [id number]. Transvaginal 3D - [id number] I have personally reviewed and adjusted the images for the 3D rendering, as necessary, prior to interpretation. 1.) The uterus is anteverted with a myometrial mass which is in the left intramural portion with a small myometrial mass most consistent with a fibroid and does not impact the cavity. 2.) Both ovaries and adnexa appear normal. Total AFC 27. 3.) There is no ascites. 4.) Uterine cavity contour is normal on ultrasound on SHG (band consistent with mucus). 5.) . Coronal rendered image of the uterus shows a normal uterine cavity. Follow-up Follow-up as clinically indicated. Comment ========= Ultrasound findings discussed w/patient. DATE OF SERVICE: 02/20/2021 Narrative 02/20/2021 15:03 EDT Indication Recurrent loss. Assessment LMP on 02/09/2021. Day of cycle: 12. Cycle: regular cycle. Uterus ======= Uterus: ?Visualized Uterus position: ?? Anteverted Uterine malformations: None Myometrium: ?Fibroid Endometrium: ?? Trilaminar endometrium Cervix details: ?Normal appearance Fibroids: ??Fibroids identified Findings: ??Anterior, . 4 - Intramural - does not contact endometrium D1 20.9 mm D2 12.8 mm D3 17.3 mm Mean ?? 17.0 mm Vol ?2.423 cm cubed Procedure SIS procedure: risks,benefits and procedure reviewed with the patient. Consent signed. Speculum exam,cervix washed X 3 with betadine. Catheter placed and saline instilled under US observation. Patient tolerated procedure. Sonohysterogram shows normal cavity with no epithelial or intracavitary lesions Right Ovary Rt ovary: ??Visualized, normal appearance Outline: ?? Smooth Rt ovary morphology: ?? Normal Rt ovarian cyst(s): ?No cysts identified Rt ovarian follicle(s): ?No follicles identified Rt ovary other findings: ?? AFC 15 Left Ovary Lt ovary: ??Visualized, normal appearance Outline: ?? Smooth Lt ovary morphology: ?? Normal Lt ovarian cyst(s): ?No cysts identified Lt ovarian follicle(s): ?No follicles identified Lt ovary other findings: ?? AFC 12 with maturing follicle Cul de Sac Appears normal. No free fluid visualized. Impression Sonohysterogram - [id number] + [id number] 1.) The uterus is anteverted with a myometrial mass which is in the left intramural portion with a small myometrial mass most consistent with a fibroid and does not impact the cavity. 2.) Both ovaries and adnexa appear normal. Total AFC 27. 3.) There is no ascites. 4.) Uterine cavity contour is normal on ultrasound on SHG (band consistent with mucus). Follow-up Follow-up as clinically indicated. Comment ========= Ultrasound findings discussed w/patient. DATE OF SERVICE: 02/20/2021 Procedure Note Maryan Jameson MD - 02/20/2021 Indication Recurrent loss. Assessment LMP on 02/09/2021. Day of cycle: 12. Cycle: regular cycle. Uterus ======= Uterus: Visualized Uterus position: Anteverted Uterine malformations: None Myometrium: Fibroid Endometrium: Trilaminar endometrium Cervix details: Normal appearance Fibroids: Fibroids identified Findings: Anterior, . 4 - Intramural - does not contact endometrium D1 20.9 mm D2 12.8 mm D3 17.3 mm Mean 17.0 mm Vol 2.423 cm cubed Procedure SIS procedure: risks,benefits and procedure reviewed with the patient.Consent signed. Speculum exam,cervix washed X 3 with betadine. Catheter placed and saline instilled under US observation. Patienttolerated procedure. Sonohysterogram shows normal cavity with no epithelial or intracavitarylesions Right Ovary Rt ovary: Visualized, normal appearance Outline: Smooth Rt ovary morphology: Normal Rt ovarian cyst(s): No cysts identified Rt ovarian follicle(s): No follicles identified Rt ovary other findings: AFC 15 Left Ovary Lt ovary: Visualized, normal appearance Outline: Smooth Lt ovary morphology: Normal Lt ovarian cyst(s): No cysts identified Lt ovarian follicle(s): No follicles identified Lt ovary other findings: AFC 12 with maturing follicle Cul de Sac Appears normal. No free fluid visualized. Impression Sonohysterogram - [id number] + [id number] 1.) The uterus is anteverted with a myometrial mass which is in the leftintramural portion with a small myometrial mass most consistent with afibroid and does not impact the cavity. 2.) Both ovaries and adnexa appear normal. Total AFC 27. 3.) There is no ascites. 4.) Uterine cavity contour is normal on ultrasound on SHG (band consistentwith mucus). Follow-up Follow-up as clinically indicated. Comment ========= Ultrasound findings discussed w/patient. DATE OF SERVICE: 02/20/2021 us Maryan Torres MD IMG US OB ORDER SUNSHINE Edited Result - Final documented in this encounter Visit Diagnoses Diagnosis Recurrent loss documented in this encounter Care Teams Vest Busheler Relationship Specialty Start Date End Date [facility] Internal Medicine, [place] [address] [place] [address] PCP - General 11/03/15 10/01/23 documented as of this encounter
--- OUTSIDE RECORDS SUMMARY | 2024-09-16 01:35 | XMS_ITS | Encounter Summary ---
Author Organization [facility] Address [address] [place] [address] Care Team Providers Care Reporting Specialist Name Role Phone Internal Medicine, Primary Care Provi darrel Encounter Details Date Type Department Care Team (Late st Contact Info) Description 10/31/2020 Documentation Visit [facility] Reproductive Medicine & Infertility Center - [address] [address] Michelle Byers MD Social History Tobacco Use Types Packs/Day Years [...] Progress Notes * Michelle Byers MD - 10/31/2020 0818 EDT Patient seen 10/31/2020 for IVF FET lining check. See ultrasound report and USE flowsheet for full details. Patient discussed with attending Dr. Hyman. Michelle Byers MD, PGY5 [place] Fellow 10/31/2020 / 8:19 documented in this encounter Plan of Treatment Not on file documented as of this encounter Visit Diagnoses Not on filedocumented in this encounter Care Teams Reporting Specialist Relationship Specialty Start Date End Date [facility], [facility] [address] [place] [address] PCP - General 11/03/15 10/01/23 documented as of this encounter
--- OUTSIDE RECORDS SUMMARY | 2024-09-16 01:35 | XMS_ITS | Encounter Summary ---
Author Organization [facility] Address [address] [place] [address] Care Team Providers Care Director Bioinformatics Name Role Phone Internal Medicine, Primary Care Provi darrel Encounter Details Date Type Department Care Team (Late st Contact Info) Description 11/02/2020 Orders Only [facility] Reproductive Medicine & Infertility Center - [facility] [address] [place] [address] Micah Phillip MD [address] [place] [address] [place] [phone] Social History Tobacco Use Types Packs/Day Years [...] Progress Notes * Micah Phillip MD - 11/02/2020 1351 EDT IVF Plan Note Patient's FET labs reviewed today. Results for orders placed or performed in visit on 11/02/20 (from the past 24 hour(s)) PROGESTERONE Collection Time: 11/02/20 9:18 Result Value Ref Range Progesterone 25.5 See Table ng/mL Adequate progesterone on current dose. FET as planned. Message routed to attending Dr. Thompson for any further recommendations. Electronically signed by: Micah Phillip MD, PGY7 Fellow Reproductive Endocrinology & Infertility [facility] 11/02/2020 / 13:52 documented in this encounter Plan of Treatment Not on file documented as of this encounter Visit Diagnoses Not on filedocumented in this encounter Care Teams Director Bioinformatics Relationship Specialty Start Date End Date [facility] Internal Medicine, [place] [address] [place] [address] PCP - General 11/03/15 10/01/23 documented as of this encounter
--- OUTSIDE RECORDS SUMMARY | 2024-09-16 01:35 | XMS_ITS | Encounter Summary ---
Author Organization [facility] Address [address] [place] [address] Care Team Providers Care Adult Remedial Education Instructor Name Role Phone [facility] Internal Medicine, Primary Care Provi darrel Reason for Referral * PAROLE OR PROBATION OFFICER (Routine) - Specialty Report Received Specialty Diagnoses / Procedures [facility] Referred To Contact Diagnoses resulting from assisted reproductive technology in first trimester Procedures OB FIRST TRIMESTER (LESS THAN 14 WEEKS) TRANSVAGINAL Maryan Jameson MD Phone: tel: fax: Referral ID Status Reason Start Date Expiration Date V isits Requested Visits Authorized [id number] Specialty Report Received 11/21/2020 1 1 Reason for Visit * Reason Onset Date Comments Results 11/21/2020 Encounter Details Date Type Department Care Team (Late st Contact Info) Description 11/21/2020 Telephone [facility] Reproductive Medicine & Infertility Center - [facility] [place] [address] [place] [address] Lanette Pagan RN Results Social History Tobacco Use Types [...] Telephone Encounter - Lanette Pagan RN - 11/21/2020 1105 EDT Component Latest Ref Rng & Units 11/16/2020 11/18/2020 11/21/2020 Quant Beta HCG, Preg <5 mIU/ml 45 (H) 105 (H) 306 (H) PC to [facility] to review HCG result from today . This is a 72 hour interval and rise is appropriate.No further labs indicated. Dating/viability scan scheduled on 12/09/20@0800. Reviewed to continue her estrace and progesterone until directed to discontinue. documented in this encounter Plan of Treatment Not on file documented as of this encounter Results * US OB FIRST TRIMESTER (LESS THAN 14 WEEKS) TRANSVAGINAL (12/02/2020 8:25 EDT) Anatomical Region Laterality Modality Pelvis Ultrasound 12/02/2020 8:18 EDT Narrative 12/02/2020 10:19 EDT Indication Viability, s/p D5 ET on 11/07/20 GA 6w2d today by ET dating . History ======= [...] IVF / ET date Embryo transfer on: ?11/07/2020 IVF / ET ?? 5 d GA by IVF / ET 6 w + 2 d [facility]LA[facility] by IVF / ET: ?? 07/26/2021 Assigned: ??Dating performed on 12/02/2020, based on the IVF / ET date Assigned GA ?6 w + 2 d Assigned KYLAH: ??07/26/2021 Assessment Gestational sac: ?? Visualized Location: ??Intrauterine GS mean ?3.4 mm ??2% 5w 0d Rempen Yolk sac: ??Visualized Maternal Structures Uterus / Cervix Uterus: ?Visualized Uterus position: ?? Anteverted Ovaries / Tubes / Adnexa Rt ovary: ??Visualized, normal appearance Rt ovary D1 ?2.4 cm Rt ovary D2 ?1.9 cm Rt ovary D3 ?1.5 cm Rt ovary mean ??1.9 cm Rt ovary vol ?? 3.6 cm cubed Lt ovary: ??Visualized, normal appearance Lt ovary D1 ?3.0 cm Lt ovary D2 ?1.9 cm Lt ovary D3 ?1.5 cm Lt ovary mean ??2.1 cm Lt ovary vol ?? 4.4 cm cubed Pouch of Tom / Other Structures Cul de Sac: ?Appears normal Free fluid: ?No free fluid visualized Method ======== Transvaginal ultrasound examination, probe # 1. View: Sufficient. Impression OB Transvaginal - [id number] There is a gestational sac measuring 5 weeks. A yolk sac is visualized within it. Both ovaries are unremarkable in size and appearance. There is no free fluid seen within the pelvis. Follow-up Repeat viability scan in 1 week. Patient counseled to all medications. Comment ========= O09.81 supervision of resulting from assisted reproductive technology. DATE OF SERVICE: 12/02/2020 Procedure Note Meliza Sena MD - 12/02/2020 Indication Viability, s/p D5 ET on 11/07/20 GA 6w2d today by ET dating . History ======= [...] IVF / ET date Embryo transfer on: 11/07/2020 IVF / ET 5 d GA by IVF / ET 6 w + 2 d [facility] by IVF / ET: 07/26/2021 Assigned: Dating performed on 12/02/2020, based on the IVF / ET date Assigned GA 6 w + 2 d Assigned KYLAH: 07/26/2021 Assessment Gestational sac: Visualized Location: Intrauterine GS mean 3.4 mm 2% 5w 0d Rempen Yolk sac: Visualized Maternal Structures Uterus / Cervix Uterus: Visualized Uterus position: Anteverted Ovaries / Tubes / Adnexa Rt ovary: Visualized, normal appearance Rt ovary D1 2.4 cm Rt ovary D2 1.9 cm Rt ovary D3 1.5 cm Rt ovary mean 1.9 cm Rt ovary vol 3.6 cm cubed Lt ovary: Visualized, normal appearance Lt ovary D1 3.0 cm Lt ovary D2 1.9 cm Lt ovary D3 1.5 cm Lt ovary mean 2.1 cm Lt ovary vol 4.4 cm cubed Pouch of Tom / Other Structures Cul de Sac: Appears normal Free fluid: No free fluid visualized Method ======== Transvaginal ultrasound examination, probe # 1. View: Sufficient. Impression OB Transvaginal - [id number] There is a gestational sac measuring 5 weeks. A yolk sac is visualizedwithin it. Both ovaries are unremarkable in size and appearance. There is no free fluid seen within the pelvis. Follow-up Repeat viability scan in 1 week. Patient counseled to all medications. Comment ========= O09.81 supervision of resulting from assisted reproductivetechnology. DATE OF SERVICE: 12/02/2020 us Maryan Torres MD [facility] [place] US OB ORDER SUNSHINE Final Result documented in this encounter Visit Diagnoses Diagnosis resulting from assisted reproductive technology in first trimester- Primary resulting from assisted reproductive technology in first trimester documented in this encounter Care Teams Adult Remedial Education Instructor Relationship Specialty Start Date End Date [facility] Internal Medicine, [place] [address] [place] [address] PCP - General 11/03/15 10/01/23 documented as of this encounter
--- OUTSIDE RECORDS SUMMARY | 2024-09-16 01:35 | XMS_ITS | Encounter Summary ---
Author Organization [facility] Address [address] [place] [address] Care Team Providers Care Sales Ambassador Name Role Phone [facility] Internal Medicine, Primary Care Provi darrel Encounter Details Date Type Department Care Team (Late st Contact Info) Description 11/02/2020 8:45 EDT Phlebotomy Only [facility] ED Center 2 Phlebotomy [address] [place], [place] [phone] Biodiesel Plant Manager, Acc Phlebotomy Routine screening for STI (sexually transmitted infection) Social History Tobacco Use Types Packs/Day Years [...] as of this encounter Visit Diagnoses Diagnosis Routine screening for STI (sexually transmitted infection) Screening examination for venereal disease documented in this encounter Care Teams Sales Ambassador Relationship Specialty Start Date End Date [facility] [place] [address] [place] [address] PCP - General 11/03/15 10/01/23 documented as of this encounter
--- OUTSIDE RECORDS SUMMARY | 2024-09-16 01:35 | XMS_ITS | Encounter Summary ---
Author Organization [facility] Address [address] [place] [address] Care Team Providers Care Cashier Assistant Name Role Phone [facility] Internal Medicine, Primary Care Provi darrel Reason for Referral * SCHOOL BUS DRIVER/TEACHER ASSISTANT (Routine/Next Available) - Specialty Report Received Specialty Diagnoses / Procedures Referred By Serene martinez Referred To Contact Diagnoses Recurrent loss Procedures US HYSTEROSONOGRAPHY Maryan Jameson MD Phone: tel: fax: Referral ID Status Reason Start Date Expiration Date V isits Requested Visits Authorized [id number] Specialty Report Received 01/02/2021 1 1 Reason for Visit * Reason Comments Follow-up Cycle review Encounter Details Date Type Department Care Team (Late st Contact Info) Description 01/02/2021 12:30 EDT Office Visit [facility] Reproductive Medicine & Infertility Center - [facility] [address] [place], [place] [id number] Micah Phillip MD [address] [place], [place] [phone] Recurrent loss (Primary Dx); Encounter for procreative management Social History Tobacco Use Types Packs/Day Years [...] Progress Notes * Micah Phillip MD - 01/02/2021 1230 EDT Images from the original note were not included. REPRODUCTIVE ENDOCRINOLOGY & INFERTILITY FOLLOW UP VISIT Subjective: Patient ID: Reanna Espinoza is an 35 y.o. female. Today's visit was provided through telemedicine audio-visual conferencing: Consent: The concept of telemedicine?? has been [...] location of the provider: Office The following people (and their respective roles) participated in today's encounter: Reanna Espinoza, patient Micah Phillip MD, fellow physician Maryan Thompson, attending physician The audio-video application used to conduct the visit was [email or web address]. I spent a total of 30 minutes with Reanna Espinoza today and 30 minutes of that time was spent in counseling and coordination of care as described in the progress note. Chief Complaint Patient presents with ??? Follow-up Cycle review 35 y.o. 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 This was her 3rd FET (2nd following her 2nd fresh cycle) and represents her 3rd early loss. 11/07: uncomplicated embryo transfer of 4AA, 4BB embryos Prior to this her endometrial preparation was appropriate on standard PO estrace and IM progesterone. Estradiol was 251 and progesterone was 25.5 when measured. Endometrial strip measured 12 mm. There is a known solitary intramural fibroid but this has been stable in size and does not appear to impact the cavity. Component Latest Ref Rng & Units 11/16/2020 11/18/2020 11/21/2020 12/09/2020 Quant Beta HCG, Preg <5 mIU/ml 45 (H) 105 (H) 306 (H) 226 (H) Ultrasounds showed an anembryonic very similar to her previous FET which resulted in the same. We advised her to stop her progesterone injections and she subsequently miscarried December 13-. No LMP since then. No need for misoprostol with this early loss in contrast to her previous FET prior to this. Embryos remaining (vitrification images copied below): straw 3: 3AA straw 4: 4BB straw 5: cav morula x2 Objective: There were no vitals taken for this visit. LMP: 12/13/20 Physical Exam: GEN: NAD, alert, A&O x 3 PSYCH: euthymic affect, normal thought content PULM: good inspiratory effort bilaterally Assesment: 35 y.o. female with recurrent loss who presents for FET cycle review. I counseled the patient on the diagnosis of RPL and the evaluation with its limitations. At this point I recommended proceeding with the RPL workup including a repeat sonohysterogram and a karyotype screen for both the patient and her . She was agreeable to this and will call us with the start of her next menses to schedule a sonohysterogram. I also discussed in detail the process of testing for genetic aneuploidy, and given her two anembryonic pregnancies I recommended this if she pursues an additional fresh stimulated cycle but not on her 4 remaining cryopreserved blasts, two of which are at the cav morula stage. She is agreeable to proceeding with FET of her next two best quality embryos as her next step in treatment following the RPL evaluation. Plan: Reanna was seen today for follow-up. Diagnoses and all orders for this visit: Recurrent loss - BETA 2 GLYCOPROTEIN ANTIBODY PANEL; Future - PHOSPHOLIPID ANTIBODY; Future - CHROMOSOME ANALYSIS; Future - HEMOGLOBIN A1C; Future - LUPUS ANTICOAGULANT CASCADE; Future - PROLACTIN; Future - US HYSTEROSONOGRAPHY; Future - THYROID CASCADE; Future - VITAMIN D (25,OH); Future Encounter for procreative management 1. RPL blood work including karyotypes 2. Sonohysterogram with next menstrual cycle 3. FET, next available month, embryos #16 (3AA) and #7 (4BB), standard lupron FET protocol Patient encounter supervised directly by attending [place] physician Dr. Thompson. Electronically signed by: Micah Phillip MD, PGY7 Fellow Reproductive Endocrinology & Infertility [facility] 01/02/2021 / 12:41 * Maryan Jameson MD - 01/02/2021 1230 EDT Attestation statement: I discussed the patient with the resident/fellow at the time of the visit. Iagree with the findings and the plan of care documented in the resident's/fellow's note. documented in this encounter Plan of Treatment Not on file documented as of this encounter Results * US HYSTEROSONOGRAPHY (02/20/2021 [...] No free fluid visualized. Impression Sonohysterogram - [id number] + [id number]. Transvaginal 3D - [id number] I have personally reviewed and adjusted the [...] No free fluid visualized. Impression Sonohysterogram - [id number] + [id number] 1.) The uterus is anteverted with a [...] No free fluid visualized. Impression Sonohysterogram - [id number] + [id number] 1.) The uterus is anteverted with a [...] in this encounter Visit Diagnoses Diagnosis Recurrent loss- Primary Encounter for procreative management Unspecified procreative management Recurrent loss documented in this encounter Discontinued Medications Medication Sig Discontinue Reason Start Date End Da te estradioL (ESTRACE) 1 mg tablet Take 3 Tabs by mouth 2 times daily. Therapy completed 12/06/2020 01/02/2021 progesterone in oil 50 mg/mL injection Inject 1.5 mL into the muscle daily. Therapy completed 11/18/2020 01/02/2021 documented as of this encounter Care Teams Cashier Assistant Relationship Specialty Start Date End Date [facility] Internal Medicine, [place] [address] [place] [address] PCP - General 11/03/15 10/01/23 documented as of this encounter
--- OUTSIDE RECORDS SUMMARY | 2024-09-16 01:35 | XMS_ITS | Encounter Summary ---
Author Organization [facility] Address [address] [place] [address] Care Team Providers Care Bore Mill Operator Name Role Phone [facility] Internal Medicine Primary Care Provi darrel Reason for Visit * Reason Onset Date Comments Coordination Of Care 06/22/2021 Encounter Details Date Type Department Care Team (Late st Contact Info) Description 06/22/2021 Telephone [facility] Reproductive Medicine & Infertility Center - [facility] [address] [place] [address] Meliza Moise RN Coordination Of [...] Telephone Encounter - Meliza Moise RN - 06/22/2021 1341 EST Message sent to patient to review results of labs and continued medication plan. Advised patient to start progesterone tonight per calendar. Next step is P4 on Sunday 06/24. Discussed with Dr. Gupta. Asked pt to write back to confirm receipt of message and understanding of plan. * Telephone Encounter - Meliza Moise RN - 06/22/2021 1338 EST ----- Message from Nathalia Castillo DO sent at 06/22/2021 9:14 EST ----- Hi!Can we please confirm with Reanna that she is cleared to start progesterone?Thanks!Nathalia documented in this encounter Plan of Treatment Not on file documented as of this encounter Results * PROGESTERONE (06/24/2021 9:06 EST) [facility] Signature Progesterone 31.3 See Table ng/mL 06/24/2021 10:29 EST [facility] Comment: Female Reference Ranges: [...] & BLO OD GAS ORDERABLES Final Result Performing Organization Address City/State/[place] Co de Phone Number [facility] [address] [place] [address] documented in this encounter Visit Diagnoses Diagnosis Encounter for assisted reproductive fertility cycle- Primary Encounter for assisted reproductive fertility procedure cycle documented in this encounter Care Teams Bore Mill Operator Relationship Specialty Start Date End Date [facility], [facility] [address] [facility] [place] [address] [place], [place] [id number] PCP - General 11/03/15 10/01/23 documented as of this encounter
--- OUTSIDE RECORDS SUMMARY | 2024-09-16 01:35 | XMS_ITS | Encounter Summary ---
Author Organization [facility] Address [address] [place] [address] Care Team Providers Care Street Worker Name Role Phone [facility] Internal Medicine, Primary Care Provi darrel Encounter Details Date Type Department Care Team (Late st Contact Info) Description 11/16/2020 8:00 EDT Phlebotomy Only [facility] ED Center 2 Phlebotomy [address], [place] [id number] Clinical Educator, Acc Phlebotomy Encounter for test, result unknown [...] Associated Diagnosis Comments QUANT BETA HCG, Routine 11/16/2020 8:06 EDT Encounter for test, result unknown documented in this encounter Results * (ABNORMAL) QUANT BETA HCG, (11/16/2020 8:06 EDT) Beta HCG Quant, 45(H) <5 mIU/ml 11/16/2020 9:13 EDT [facility] Comment: NOTE: : Negative: Less than 5mIU/mL Indeterminant: Between 5 and 25 mIU/mL, recommend repeat testing in 48 hours Positive: Greater than 25 mIU/mL The results of this assay can be falsely lowered due to the consumption of Biotin. Blood VENOUS BLOOD / Unknown Venipuncture / Unknown 11/16/2020 8:06 EDT 11/16/2020 8:26 EDT us Maryan Torres MD CHEMISTRY & BLO OD GAS ORDERABLES Final Result [facility] [address] [place] [address] documented in this encounter Visit Diagnoses Diagnosis Encounter for test, result unknown documented in this encounter Care Teams Street Worker Relationship Specialty Start Date End Date [facility] Internal Medicine, [address] [place] [address] PCP - General 11/03/15 10/01/23 documented as of this encounter
--- OUTSIDE RECORDS SUMMARY | 2024-09-16 01:35 | XMS_ITS | Encounter Summary ---
Author Organization [facility] Address [address] [place] [address] Care Team Providers Care Irrigationist Designer Name Role Phone [facility] Internal Medicine, Primary Care Provi darrel Unknown, Provider Primary Care Provider Unava ilable None, Provider Primary Care Provider Unavailabl e Encounter Details Date Type Department Care Team (Late st Contact Info) Description 06/17/2021 Lab Requisition [facility] Pathology & Laboratory Medicine - [facility] [address] [place], [place] [id number] Outr Resulting Lab, Provider Social History Tobacco [...] Date/Time Associated Diagnosis Comments ESTRADIOL, ADULTS Routine 06/16/2021 14: 45 EDT documented in this encounter Results * ESTRADIOL, ADULTS (06/16/2021 14:45 EDT) Estradiol 236 See Note pg/mL 06/18/2021 17:41 EST [facility] Comment: NOTE: FEMALE [...] this drug. Blood VENOUS BLOOD / Unknown 06/16/2021 14:45 EDT 06/18/2021 16:55 EST us Provider Outr Resulting Lab CHEMISTRY & BLOOD GA S ORDERABLES Final Result Performing Organization Address City/State/[facility] Co de Phone Number [facility] [address] [place] [address] documented in this encounter Visit Diagnoses Not on filedocumented in this encounter Care Teams Irrigationist Designer Relationship Specialty Start Date End Date [facility] Internal Medicine, [address] [place] [address] PCP - General 11/03/15 10/01/23 Unknown, Provider, [place] [address] [place] [address] PCP - General 10/02/23 4 None, Provider PCP - General 05/09/24 documented as of this encounter
--- OUTSIDE RECORDS SUMMARY | 2024-09-16 01:35 | XMS_ITS | Encounter Summary ---
Author Organization [facility] Address [address] [place] [address] Care Team Providers Care Clinical Rehabilitation Aide Name Role Phone [facility] Internal Medicine, Primary Care Provi darrel Reason for Referral * AUTOMOBILE MECHANIC ASSISTANT (Routine) - Specialty Report Received Specialty Diagnoses / Procedures Referred By Serene martinez Referred To Contact Diagnoses resulting from assisted reproductive technology in first trimester Procedures OB FIRST TRIMESTER (LESS THAN 14 WEEKS) TRANSVAGINAL Maryan Jameson MD Phone: tel: fax: Referral ID Status Reason Start Date Expiration Date V isits Requested Visits Authorized [id number] Specialty Report Received 11/21/2020 1 1 Reason for Visit * AUTOMOBILE MECHANIC ASSISTANT (Routine) - Specialty Report Received Specialty Diagnoses / Procedures Referred By Serene martinez Referred To Contact Diagnoses resulting from assisted reproductive technology in first trimester Procedures US OB FIRST TRIMESTER (LESS THAN 14 WEEKS) TRANSVAGINAL Maryan Jameson MD Phone: tel: fax: Referral ID Status Reason Start Date Expiration Date V isits Requested Visits Authorized [id number] Specialty Report Received 11/21/2020 1 1 Encounter Details Date Type Department Care Team (Latest Contact Info) Description 12/02/2020 8:00 EDT - 12/02/2020 23:59 EDT Hospital Encounter [facility] [place] [address] resulting from assisted reproductive technology in first [...] 2 times daily. 30 Tab 12/06/2020 01/02/2021 estradioL (ESTRACE) 1 mg tablet Take 3 Tabs by mouth 2 times daily. 30 Tab 11/29/2020 12/06/2020 progesterone in oil 50 mg/mL injection Inject [...] TRIMESTER (LESS THAN 14 WEEKS) TRANSVAGINAL Routine 12/02/2020 8:25 EDT resulting from assisted reproductive technology in [...] 1. View: Sufficient. Impression OB Transvaginal - 50770 There is a gestational sac measuring 5 [...] 1. View: Sufficient. Impression OB Transvaginal - 17202 There is a gestational sac measuring 5 weeks. A yolk sac is visualizedwithin it. Both ovaries are unremarkable in size and appearance. There is no free fluid seen within the pelvis. Follow-up Repeat viability scan in 1 week. Patient counseled to all medications. Comment ========= O09.81 supervision of resulting from assisted reproductivetechnology. DATE OF SERVICE: 12/02/2020 us Maryan Torres MD IMG US OB ORDER SUNSHINE Final Result documented in this encounter Visit Diagnoses Diagnosis resulting from assisted reproductive technology in first trimester documented in this encounter Care Teams Clinical Rehabilitation Aide Relationship Specialty Start Date End Date [facility] Internal Medicine, [address] [place] [address] PCP - General 11/03/15 10/01/23 documented as of this encounter
--- OUTSIDE RECORDS SUMMARY | 2024-09-16 01:35 | XMS_ITS | Encounter Summary ---
Author Organization [facility] Address [address] [place] [address] Care Team Providers Care Patternmaker Helper Name Role Phone [facility] Internal Medicine, Primary Care Provi darrel Reason for Referral * MANUFACTURER'S SERVICE REPRESENTATIVE (Routine) - Specialty Report Received Specialty Diagnoses / Procedures Referred By Contac t Referred To Contact Diagnoses Encounter for assisted reproductive fertility cycle Procedures US SOCIAL WORK COORDINATOR EXAM ([facility] ONLY) Maryan Jameson MD Phone: tel: fax: Referral ID Status Reason Start Date Expiration Date V isits Requested Visits Authorized [id number] Specialty Report Received 09/06/2020 1 1 Reason for Visit * MANUFACTURER'S SERVICE REPRESENTATIVE (Routine) - Specialty Report Received Specialty Diagnoses / Procedures Referred By Contjean t Referred To Contact Diagnoses Encounter for assisted reproductive fertility cycle Procedures US SOCIAL WORK COORDINATOR EXAM (BALBIR ONLY) Maryan Jameson MD Phone: tel: fax: Referral ID Status Reason Start Date Expiration Date V isits Requested Visits Authorized [id number] Specialty Report Received 09/06/2020 1 1 Encounter Details Date Type Department Care Team (Latest Contact Info) Description 10/31/2020 7:49 EDT - 10/31/2020 23:59 EDT Hospital Encounter [facility] [address] [address] Encounter for assisted reproductive fertility cycle Discharge [...] 8:41 EDT documented as of this encounter Last Filed Vital Signs Vital Sign Reading Time Taken Comments Blood Pressure 118/68 10/31/2020 0800 EDT Pulse - - Temperature - - Respiratory Rate - - Oxygen Saturation - - Inhaled Oxygen Concentration - - Weight 64 kg (141 lb) 10/31/2020 0800 EDT Height 160 cm (5' 3) 10/31/2020 0800 EDT Body Mass Index 24.98 10/31/2020 0800 EDT documented in this encounter [...] Name Priority Date/Time Associated Diagnosis Comments US SOCIAL WORK COORDINATOR EXAM (BALBIR ONLY) Routine 10/31/2020 7:59 EDT Encounter for assisted reproductive fertility cycle documented in this encounter Results * US SOCIAL WORK COORDINATOR EXAM (BALBIR ONLY) (10/31/2020 7:59 EDT) Anatomical Region Laterality Modality Ultrasound 10/31/2020 8:08 EDT Narrative 10/31/2020 8:31 EDT Indication 35 yo with unexplained infertility, endometrial lining check for FET cycle #2. Uterus ======= Uterus: ?Appears normal Uterus position: ?? Anteverted Myometrium: ?Fibroid, subserosal left anterior Endometrium: ?? Trilaminar endometrium Endometrial thickness, total ?? 12.1 mm Right Ovary Rt ovary: ??Visualized, normal appearance Rt ovary details: ??Quiescent Left Ovary Lt ovary: ??Visualized, normal appearance Lt ovary details: ??Quiescent Cul de Sac Appears normal. No free fluid visualized. Method ======== Transvaginal ultrasound examination, probe # 8. View: Good view. Impression USE (IVF Follicular) - [id number] Normal anteverted uterus, trilaminar endometrium. Normal quiescent ovaries. Follow-up Endometrial thickness adequate, start progesterone IM per calendar. Comment ========= Z31.83 encounter for assisted reproductive fertility procedure cycle. DATE OF SERVICE: 10/31/2020 Procedure Note Sue Hyman MD - 10/31/2020 Indication 35 yo with unexplained infertility, endometrial lining check for FETcycle #2. Uterus ======= Uterus: Appears normal Uterus position: Anteverted Myometrium: Fibroid, subserosal left anterior Endometrium: Trilaminar endometrium Endometrial thickness, total 12.1 mm Right Ovary Rt ovary: Visualized, normal appearance Rt ovary details: Quiescent Left Ovary Lt ovary: Visualized, normal appearance Lt ovary details: Quiescent Cul de Sac Appears normal. No free fluid visualized. Method ======== Transvaginal ultrasound examination, probe # 8. View: Good view. Impression USE (IVF Follicular) - [id number] Normal anteverted uterus, trilaminar endometrium. Normal quiescent ovaries. Follow-up Endometrial thickness adequate, start progesterone IM per calendar. Comment ========= Z31.83 encounter for assisted reproductive fertility procedure cycle. DATE OF SERVICE: 10/31/2020 us Maryan Torres MD IMG US OB ORDER SUNSHINE Final Result documented in this encounter Visit Diagnoses Diagnosis Encounter for assisted reproductive fertility cycle Encounter for assisted reproductive fertility procedure cycle documented in this encounter Care Teams Patternmaker Helper Relationship Specialty Start Date End Date [facility] Internal Medicine, [facility] [address] [facility] [address] [place] [address] PCP - General 11/03/15 10/01/23 documented as of this encounter
--- OUTSIDE RECORDS SUMMARY | 2024-09-16 01:35 | XMS_ITS | Encounter Summary ---
Author Organization [facility] Address [address] [place] [address] Care Team Providers Care Compliance Project Manager Name Role Phone [facility] Internal Medicine, Primary Care Provi darrel Reason for Visit * Reason Onset Date Comments Results 11/16/2020 Encounter Details Date Type Department Care Team (Late st Contact Info) Description 11/16/2020 Telephone [facility] Reproductive Medicine & Infertility Center - [facility] [address] [place] [address] Johanne Khan, MALIA [address] [place] [address] Results Social History Tobacco Use Types Packs/Day [...] Telephone Encounter - Johanne Khan RN - 11/16/2020 1000 EDT Call to [facility] with hCG results from this morning. hCG is positive and indicative of early . Advised pt to repeat hCG on 11/18 and 11/21 (not available on 11/20). If rise appropriate, can schedule US between 6-7 weeks of . Component Latest Ref Rng & Units 11/16/2020 Quant Beta HCG, Preg <5 mIU/ml 45 (H) Currently taking synthroid? No documented in this encounter Plan of Treatment Not on file documented as of this encounter Visit Diagnoses Not on filedocumented in this encounter Care Teams Compliance Project Manager Relationship Specialty Start Date End Date [facility] Internal Medicine, Mp [address] [place] [address] PCP - General 11/03/15 10/01/23 documented as of this encounter
--- OUTSIDE RECORDS SUMMARY | 2024-09-16 01:35 | XMS_ITS | Encounter Summary ---
Author Organization [facility] Address [address] [place] [address] Care Team Providers Care Pressure Tank Operator Name Role Phone [facility] Internal Medicine, Primary Care Provi darrel Reason for Visit * Reason Comments Ultrasound Encounter Details Date Type Department Care Team (Late st Contact Info) Description 06/22/2021 8:30 EST Procedure visit [facility] Reproductive Medicine & Infertility Center - [facility] [address] [place], [place] [id number] Grace Gupta MD [address] [facility], [facility] [address] [place] [address] Encounter for assisted reproductive fertility [...] documented in this encounter Progress Notes * Nathalia Castillo DO - 06/22/2021 0830 EST Patient seen 06/22/2021 for FET lining check See ultrasound report and USE flowsheet for full details. Patient discussed with attending Dr. Grace Gupta. Nathalia Castillo DO, PGY5 [facility] Fellow 06/22/2021 / 9:09 MD Supervising Fellow's in the Primary Care Exception Setting: I discussed the case with the Fellow at the time of the visit. I have reviewed the fellow's note and agree. Physician Signature: Grace Gupta MD 06/22/2021 10:27 * Nathalia Castillo DO - 06/22/2021 0830 EST IVF Plan Note Cycle type: FET Patient's US, labs, and IVF plan reviewed with attending Dr. Grace Gupta. IVF FLOWSHEET (USE FORM) 06/09/2021 06/22/2021 06/22/2021 Checklist: LMP 06/06/2021 Checklist: Lupron Start Checklist: Cycle Type Checklist: Cycle Number Checklist: Plan (No Data) (No Data) (No Data) Medications: RX Day Baseline E2 check Lining check Medications: RX Date 06/09/2021 06/16/2021 06/22/2021 Medications: Use RX HMG Start Medications: Use RX FSH Labs: E2 (No Data) 236 Labs: P4 Uterus: Endometrial Thickness 2.7 14.1 Uterus: Trilaminar No Yes Uterus: Endometrial Cavity Fluid No No Please contact the patient with the following plan: ??? Cleared to start progesterone. Nathalia Castillo DO, PGY5 Fellow Reproductive Endocrinology & Infertility [facility] 06/22/2021 Supervising Fellow's in the Primary Care Exception Setting: I performed the ultrasound with the Fellow at the time of the visit. I have reviewed the fellow's note and agree. Case discussed with Dr. Lakeisha Torres. Physician Signature: Grace Gupta MD 06/22/2021 10:26 documented in this encounter Plan of Treatment Not on file documented as of this encounter Visit Diagnoses Diagnosis Encounter for assisted reproductive fertility cycle- Primary Encounter for assisted reproductive fertility procedure cycle documented in this encounter Care Teams Pressure Tank Operator Relationship Specialty Start Date End Date [facility] Internal Medicine, [address] [place] [address] PCP - General 11/03/15 10/01/23 documented as of this encounter
--- OUTSIDE RECORDS SUMMARY | 2024-09-16 01:36 | XMS_ITS | Encounter Summary ---
Author Organization [facility] Address [address] [place] [address] Care Team Providers Care Child Care Worker Name Role Phone Internal Medicine, Primary Care Provi darrel Encounter Details Date Type Department Care Team (Late st Contact Info) Description 10/04/2020 Documentation Visit [facility] Reproductive Medicine & Infertility Center - [facility] [address] [place] [address] Meliza Moise RN Social History Tobacco [...] the muscle daily. 3 Vial 3 10/04/2020 1 estradioL (ESTRACE) 1 mg tablet Take 3 Tabs by mouth 2 times daily. 200 Tab 10/04/2020 1 leuprolide (LUPRON) 1 mg/0.2 mL kit Inject 20 units into the skin. Decrease to 10 units when directed. 2 Each 10/04/2020 1 documented in this encounter Progress Notes * Meliza Moise RN - 10/04/2020 0936 EST FET medications ordered. documented in this encounter Plan of Treatment Not on file documented as of this encounter Visit Diagnoses Not on filedocumented in this encounter Discontinued Medications Medication Sig Discontinue Reason Start Date End Da te progesterone in oil 50 mg/mL injection Inject 1 mL into the muscle daily. 07/23/2020 10/04/2020 documented as of this encounter Care Teams Child Care Worker Relationship Specialty Start Date End Date [facility] Internal Medicine, Mp [address] [place] [address] PCP - General 11/03/15 10/01/23 documented as of this encounter
--- OUTSIDE RECORDS SUMMARY | 2024-09-16 01:36 | XMS_ITS | Encounter Summary ---
Author Organization [facility] Address [address] [place] [address] Care Team Providers Care Fabrication Specialist Name Role Phone [facility] Internal Medicine, Primary Care Provi darrel Reason for Visit * Reason Comments Telemedicine Video Visit Encounter Details Date Type Department Care Team (Late st Contact Info) Description 09/06/2020 9:00 EST Telemedicine [facility] Reproductive Medicine & Infertility Center - [facility] [address], [place] [phone] Maryan Jameson MD [address] [facility], [facility] [address] [place] [address] Infertility, female, primary (Primary Dx) Social History Tobacco Use Types [...] Progress Notes * Maryan Jameson MD - 09/06/2020 0900 EST [facility] Reproductive Medicine Telehealth visit Chief Complaint Patient presents with ??? Telemedicine Video Visit Reanna, 35 y.o. is contacted for an (audio-visual, or audio only) Telehealth visit. Today's visit was provided through telemedicine conferencing: Using At[employer] platform. Consent: The concept of telemedicine?? has [...] role did participate in today's encounter visit: Reanna Espinoza - patient Micah Phillip MD - fellow physician Maryan Torres MD - attending physician HPI Cryopreserved embryos The patient is a 35 y.o. who presents with her spouse to review the possibility of utilizing their cryopreserved embryos for . Vitrified: six D5 embryos Straw #1: 4AA Straw #2: 4AB Straw #3: 3AA Straw #4: 4BB Straw #5: 2x cav. Morula Recommendations from Dr. Harley If you plan to transfer two blastocysts for FET then I recommend; 1- 4AA, 4BB 2- 3AA, 4AB 3- 2 x Cav Mor - it would be helpful to schedule this ET later in the morning for CMs to develop further. PAST MEDICAL HX: Past Medical History: Diagnosis Date ??? Retained products of conception after miscarriage 02/10/2019 PAST SURGICAL HX: No past surgical history on file. FAMILY HX: family history is not on file. SOCIAL HX: reports that she has never smoked. She has never used smokeless tobacco. She reports current alcohol use of about 3.0 - 4.0 standard drinks of alcohol per week. She reports that she does not use drugs. MEDICATIONS: Current Outpatient Medications Medication Sig Dispense Refill ??? acetaminophen-codeine (TYLENOL-CODEINE #3) 300-30 mg per tablet Take 1-2 Tabs by mouth every 6 hours as needed for Pain. Daily Max: 8 Tabs 8 Tab 0 ??? cabergoline (DOSTINEX) 0.5 mg tablet Take 1 Tab by mouth daily. 8 Tab 0 ??? leuprolide (LUPRON) 1 mg/0.2 mL injection Inject 20 units into the skin. Decrease to 10 units when directed. 2 Each 0 ??? progesterone in oil 50 mg/mL injection Inject 1 mL into the muscle daily. 1 Vial 0 No current facility-administered medications for this visit. ALLERGIES: No Known Allergies 10 Point ROS :Systems reviewed found to be negative except as above. OBJECTIVE: General: NAD alert and oriented ??3, answers questions appropriately, IVF FLOWSHEET (USE FORM) 04/10/2019 04/24/2019 07/06/2020 07/11/2020 07/12/2020 07/13/2020 07/17/2020 Checklist: LMP - - - - - - - Checklist: Lupron Start - - - - - - - Checklist: Cycle Type (No Data) - - - - - - Checklist: Cycle Number 1 - - - - - - Checklist: Plan (No Data) (No Data) - - (No Data) (No Data) (No Data) Medications: RX Day Baseline - - 4 5 6 10 Medications: RX Date 04/10/2019 04/24/2019 - 07/11/2020 07/12/2020 07/13/2020 07/17/2020 Medications: Use RX HMG Start - - - 2 2 1 1 Medications: Use RX FSH - - - 4 4 3 2 Labs: E2 15 - 25 306 - 105 5236 Labs: P4 0.5 - 0.3 - - 0.7 1.7 Uterus: Endometrial Thickness 2.9 11 3.4 - - - 11.5 Uterus: Trilaminar No Yes - - - - Yes Uterus: Endometrial Cavity Fluid No No - - - - No Right Ovary: Follicle Size 1 - - - - - 11 18 Right Ovary: Follicle Size 2 - - - - - 11 17 Right Ovary: Follicle Size 3 - - - - - 10 17 Right Ovary: Follicle Size 4 - - - - - 10 17 Right Ovary: Follicle Size 5 - - - - - - 17 Right Ovary: Follicle Size 6 - - - - - - 16 Right Ovary: Follicle Size 7 - - - - - - 16 Right Ovary: Follicle Size 8 - - - - - - 15 Right Ovary: Follicle Size 9 - - - - - - 14 Right Ovary: Follicle Size 10 - - - - - - 13 Right Ovary: Follicle <10MM - - 11 - - 15 5 Left Ovary: Follicle Size 11 - - - - - 11 19 Left Ovary: Follicle Size 12 - - - - - 10 18 Left Ovary: Follicle Size 13 - - - - - 10 17 Left Ovary: Follicle Size 15 - - - - - - 17 Left Ovary: Follicle Size 16 - - - - - - 17 Left Ovary: Follicle Size 18 - - - - - - 16 Left Ovary: Follicle Size 19 - - - - - - 16 Left Ovary: Follicle Size 20 - - - - - - 15 Left Ovary: Follicle <10MM #2 - - 11 - - 15 4 LABS: Vitrified: six D5 embryos Straw #1: 4AA Straw #2: 4AB Straw #3: 3AA Straw #4: 4BB Straw #5: 2x cav. Js Reanna was seen today for telemedicine video visit. Diagnoses and all orders for this visit: Female infertility, secondary Infertility, female, primary ASSESSMENT: 1.) Infertility-planning FET I had a [] minute visit with this patient and her spouse, with 100% spent in counseling this couplewith regards to the options for utilization of their cryopreserved embryos, types of cycles (hormone replacement or natural cycle). They have chosen a hormone replacement cycle for FET. We reviewed the standard medications used, typical course, and events surrounding a frozen embryo transfer cycle. We discussed our current survival rates for cryopreserved embryos, and the rate of on going embryo progression following the thaw of embryos. We reviewed our current and loss rates, and the national and loss rates. We reviewed the potential complications of an FET, to include but not be limited to, cycle cancellation, side effects or reaction to the medications, multiple gestations, ectopic , and failure to conceive. I advised them that no embryos may survive the freeze and thaw process. We reviewed the consent and they signed the consent in my presence today. They have decided to maximize their chance for in each cycle and would like to start by thawing 2 embryos. They understand that the lab will continue to thaw embryos as survival allows in order to maximize their chance for . They are planning to transfer up to 2 embryos. Discussed options for next cycle with patient, including FET versus repeat fresh cycle. They would like at least two embryos re-cryopreserved at blastocyst if their embryos progress to this developmental stage. PLAN: 1.) FET per protocol 2.) MVI containing folic acid recommended Maryan Torres MD Part of this note was completed using voice dragon system and or typing there maybe small errors when using dictation. Attestation statement: I discussed the patient with the resident/fellow at the time of the visit. Iagree with the findings and the plan of care documented in the resident's/fellow's note. I spent a total of 25 minutes with Reanna Espinoza today with 25 minutes spent in counseling directly via telehealth, and a total of 30 minutes was spent in the coordination of care as described in the progress note. documented in this encounter Plan of Treatment Not on file documented as of this encounter Visit Diagnoses Diagnosis Infertility, female, primary- Primary Female infertility of unspecified origin documented in this encounter Discontinued Medications Medication Sig Discontinue Reason Start Date End Da te cabergoline (DOSTINEX) 0.5 mg tablet Take 1 Tab by mouth daily. Therapy completed 07/19/2020 09/06/2020 acetaminophen-codeine (TYLENOL-CODEINE #3) 300-30 mg per tablet Take 1-2 Tabs by mouth every 6 hours as needed for Pain. Daily Max: 8 Tabs Therapy completed 07/20/2020 09/06/2020 leuprolide (LUPRON) 1 mg/0.2 mL injection Inject 20 units into the skin. Decrease to 10 units when directed. Therapy completed 03/31/2019 09/06/2020 documented as of this encounter Care Teams Fabrication Specialist Relationship Specialty Start Date End Date [facility] Internal Medicine, [address] [place] [address] PCP - General 11/03/15 10/01/23 documented as of this encounter
--- OUTSIDE RECORDS SUMMARY | 2024-09-16 01:36 | XMS_ITS | Encounter Summary ---
Author Organization [facility] Address [address] [place] [address] Care Team Providers Care Chemistry Faculty Member Name Role Phone [facility] Internal Medicine, Primary Care Provi darrel Encounter Details Date Type Department Care Team (Late st Contact Info) Description 07/05/2020 Orders Only [facility] Reproductive Medicine & Infertility Center - [address] [phone] Meliza Moise RN Routine screening for STI (sexually transmitted infection) (Primary Dx) Social History Tobacco Use Types [...] documented as of this encounter Results * CHLAMYDIA/N. GONORRHOEAE AMPLIFIED RNA (07/06/2020 9:42 EST) Neisseria gonorrhoeae Result Negative Negative 07/08/2020 14:23 EST [facility] Chlamydia trachomatis Result Negative Negative 07/08/2020 14:23 EST [facility] Swab ENTIRE VAGINA / Unknown Swab / Unknown 07/06/2020 9:42 EST 07/06/2020 9:51 EST us Micah Phillip MD MICROBIOLOGY - GENERAL ORD ERABLES Final Result [facility] [address] [place] [address] documented in this encounter Visit Diagnoses Diagnosis Routine screening for STI (sexually transmitted infection)- Primary Screening examination for venereal disease documented in this encounter Care Teams Chemistry Faculty Member Relationship Specialty Start Date End Date [facility] Internal Medicine, [address] [facility] [place] [address] PCP - General 11/03/15 10/01/23 documented as of this encounter
--- OUTSIDE RECORDS SUMMARY | 2024-09-16 01:36 | XMS_ITS | Encounter Summary ---
Author Organization [facility] Address [address] [place] [address] Care Team Providers Care Deliver Driver Name Role Phone [facility] Internal Medicine, Primary Care Provi darrel Unknown, Provider Primary Care Provider Unava ilable None, Provider Primary Care Provider Unavailabl e Encounter Details Date Type Department Care Team (Late st Contact Info) Description 07/06/[address] [facility] Pathology & Laboratory Medicine - [address] [phone] Outr Resulting Lab, Provider Social History Tobacco [...] HIV 1/2 ANTIGEN AND ANTIBODY, 4TH GENERATION After X-Ray 06/27/2020 16:05 EST documented in this encounter Results * HIV 1/2 ANTIGEN AND ANTIBODY, 4TH GENERATION (06/27/2020 16:05 EST) HIV 1 and 2 Antibody/p24 Antigen, 4th Generation Negative Negative 08/01/2020 15:59 EST [facility] Comment: If acute HIV-1 infection is suspected in a high risk ??patient, submit plasma specimen for HIV-1 RNA quantitation test. Fourth Generation assay performed on the Siemens GetAFiveaur. Blood VENOUS BLOOD / Unknown 06/27/2020 16:05 EST 07/29/2020 12:44 EST us Provider Outr Resulting Lab IMMUNOLOGY AND SEROL OGY ORDERABLES Final Result [facility] [address] [place] [address] documented in this encounter Visit Diagnoses Not on filedocumented in this encounter Care Teams Deliver Driver Relationship Specialty Start Date End Date [facility] Internal Medicine, [address] [place], [place] [phone] PCP - General 11/03/15 10/01/23 Unknown, Provider, [place] [address] [place] [address] PCP - General 10/02/23 4 None, Provider PCP - General 05/09/24 documented as of this encounter
--- OUTSIDE RECORDS SUMMARY | 2024-09-16 01:36 | XMS_ITS | Encounter Summary ---
Author Organization [facility] Address [address] [place] [address] Care Team Providers Care Team Leader/Research Psychologist Name Role Phone Internal Medicine, Primary Care Provi darrel Reason for Visit * Reason Onset Date Comments Medication Management 07/20/2020 Encounter Details Date Type Department Care Team (Late st Contact Info) Description 07/20/2020 Orders Only [facility] Reproductive Medicine & Infertility Center - [address] [address] Micah Phillip MD [address] [id number] Social History Tobacco Use Types Packs/Day Years [...] have Coronavirus / COVID-19? No / Unsure 07/15/2020 13:32 EST documented as of this encounter Functional Status [...] Refills Last Filled Start Date End Date acetaminophen-codein e (TYLENOL-CODEINE #3) 300-30 mg per tablet Take 1-2 Tabs by mouth every 6 hours as needed for Pain. Daily Max: 8 Tabs 8 Tab 07/20/2020 1 ondansetron (ZOFRAN-ODT) 4 mg disintegrating tablet Take 1 Tab by mouth every 8 hours as needed for up to 3 days for Nausea. 12 Tab 07/20/2020 0 documented in this encounter Plan of Treatment Not on file documented as of this encounter Visit Diagnoses Not on filedocumented in this encounter Care Teams Team Leader/Research Psychologist Relationship Specialty Start Date End Date [facility] Internal Medicine, [place] [place] [address] PCP - General 11/03/15 10/01/23 documented as of this encounter
--- OUTSIDE RECORDS SUMMARY | 2024-09-16 01:36 | XMS_ITS | Encounter Summary ---
Author Organization [facility] Address [address] [place] [address] Care Team Providers Care Epic Ambulatory Analyst Name Role Phone Internal Medicine, Primary Care Provi darrel Reason for Visit * Reason Comments Follow-up IVF USE OM#6 Encounter Details Date Type Department Care Team (Late st Contact Info) Description 07/13/2020 12:00 EST Procedure visit [facility] Reproductive Medicine & Infertility Center - [address] [phone] Meliza Sena MD [address] [place] [address], [facility] [address] [place] [address] Encounter for assisted reproductive fertility [...] Progress Notes * Micah Phillip MD - 07/13/2020 1200 EST Patient seen 07/13/2020 for IVF USE OM#6. See ultrasound report and USE flowsheet for full details. Patient discussed with attending Dr. Sena. Micah Phillip MD, PGY7 [place] Fellow 07/13/2020 / 12:27 * Meliza Sena MD - 07/13/2020 1200 EST Attestation statement: I discussed the patient with the resident/fellow at the time of the visit. Travongree with the findings and the plan of care documented in the resident's/fellow's note. documented in this encounter Plan of Treatment Not on file documented as of this encounter Procedures Procedure Name Priority Date/Time Associated Diagnosis Comments PROGESTERONE Routine 07/13/2020 11:58 EST Encounter for assisted reproductive fertility cycle ESTRADIOL, ADULTS Routine 07/13/2020 11: 58 EST Encounter for assisted reproductive fertility cycle documented in this encounter Results * ESTRADIOL, ADULTS (07/13/2020 11:58 EST) Estradiol 967 See Note pg/mL 07/13/2020 13:26 EST [facility] Comment: NOTE: FEMALE REFERENCE RANGES: MENSTRUATING ? By cycle day relative to LH peak Follicular ?(-12 to -4 days) ??20-144 pg/mL Midcycle ?(-3 to +2 days) ?? 64-357 pg/mL Luteal ?(+4 t0 +12 days) ??56-214 pg/mL POSTMENOPAUSAL ?<33 pg/mL *Cross reactivity with Fulvestrant could lead to a falsely elevated estradiol result in patients treated with this drug. Blood VENOUS BLOOD / Unknown Venipuncture / Unknown 07/13/2020 11:58 EST 07/13/2020 12:23 EST Sue Hyman MD CHEMISTRY & BLOOD GAS ORD ERABLES Final Result [facility] [address] [place] [address] * PROGESTERONE (07/13/2020 11:58 EST) Progesterone 0.7 See Table ng/mL 07/13/2020 13:27 EST [facility] Comment: Female Reference Ranges: [...] VENOUS BLOOD / Unknown Venipuncture / Unknown 07/13/2020 11:58 EST 07/13/2020 12:23 EST us Maryan Torres MD CHEMISTRY & BLO OD GAS ORDERABLES Final Result [facility] [address] [place] [address] documented in this encounter Visit Diagnoses Diagnosis Encounter for assisted reproductive fertility cycle- Primary Encounter for assisted reproductive fertility procedure cycle documented in this encounter Care Teams Epic Ambulatory Analyst Relationship Specialty Start Date End Date [facility] Internal Medicine, [place] [place] [address] PCP - General 11/03/15 10/01/23 documented as of this encounter
--- OUTSIDE RECORDS SUMMARY | 2024-09-16 01:36 | XMS_ITS | Encounter Summary ---
Author Organization [facility] Address [address] [place] [address] Care Team Providers Care Lap Cutter Name Role Phone [facility] Internal Medicine, Primary Care Provi darrel Encounter Details Date Type Department Care Team (Late st Contact Info) Description 07/13/2020 Orders Only [facility] Reproductive Medicine & Infertility Center - [address] [address] Meliza Moise RN Encounter for preoperative screening laboratory testing for COVID-19 virus (Primary Dx) Social History Tobacco Use Types [...] Progress Notes * Meliza Moise RN - 07/13/2020 1028 EST COVID test ordered pre retrieval. documented in this encounter Plan of Treatment Not on file documented as of this encounter Results * COVID-19 TESTING (07/17/2020 9:57 EST) COVID-19 rt-PCR Result NEGATIVE Negative 07/19/2020 15:46 EST [facility] Comment: 2019-novel Coronavirus (2019-nCoV) not detected by the qRT-PCR assay. Consider testing for other respiratory viruses or re-collecting for 2019-nCoV testing. Note: Optimum timing for peak viral levels during infections caused by 2019-nCoV have not been determined. Collection of multiple specimens from the same patient may be necessary to detect the virus. Limitations Positive results are indicative of active infection with SARS-CoV-2 but do not rule out bacterial infection or co-infection with other viruses. The agent detected may not be the definite cause of disease. In addition, detection of viral RNA may not indicate the presence of infectious virus or that SARS-CoV-2 is the causative agent for clinical symptoms. Negative results do not preclude SARS-CoV-2 infection and should not be used as the sole basis for patient management decisions. Negative results must be combined with clinical observations, patient history, and epidemiological information. False negative results may also occur if amplification inhibitors are present in the specimen or if inadequate numbers of organisms are present in the specimen. Optimum specimen types and timing for peak viral levels during infections caused by SARS-CoV-2 have not been fully determined. Collection of multiple specimens (types and time points) from the same patient may be necessary to detect the virus. The test was validated for use with upper respiratory specimens obtained via nasopharyngeal or oropharyngeal swabs in VTM, UTM, M4, M5, M6, saline, and MTM media. The performance of this test has not been established for other specimens. Specimens collected using other FDA recommended Specimen Collection Materials listed in the FDA COVID-19 [employer] communication (November 05, 2019) are processed with the caveat that they were not all validated for use with this test and the result must be interpreted in this context. Furthermore, a false negative results may occur if a specimen is improperly collected, transported or handled. If the virus mutates in the RT-PCR target region, SARS-CoV-2 may not be detected or may be detected less predictably. Inhibitors or other types of interference may produce a false negative result. An interference study evaluating the effect of common cold medications was not performed. This test is not FDA-cleared but its performance characteristics were established by our CLIA-certified, CAP-accredited, high complexity laboratory in accordance with CLIA regulations, [employer] [place] [employer] (CAP) guidelines (Oct 29, 2019), and FDA guidance (Oct 10, 2019). This test is only for use under the Food and Drug Administration's Emergency Use Authorization. Performing Lab [facility] 07/19/2020 15:46 EST [facility] Swab ENTIRE NASOPHARYNX / Unknown Swab / Unknown 07/17/2020 9:57 EST 07/17/2020 9:57 EST Micah Phillip MD MICROBIOLOGY - GENERAL ORD ERABLES Final Result [facility] [address] [place] [address] [facility] [place] documented in this encounter Visit Diagnoses Diagnosis Encounter for preoperative screening laboratory testing for COVID-19 virus- Primary documented in this encounter Care Teams Lap Cutter Relationship Specialty Start Date End Date [facility] Internal Medicine, [address] [place] [address] PCP - General 11/03/15 10/01/23 documented as of this encounter
--- OUTSIDE RECORDS SUMMARY | 2024-09-16 01:36 | XMS_ITS | Encounter Summary ---
Author Organization [facility] Address [address] [place] [address] Care Team Providers Care Sales Process Manager Name Role Phone [facility] Internal Medicine, Primary Care Provi darrel Reason for Visit * Reason Onset Date Comments Results 07/21/2020 D1 embryology Encounter Details Date Type Department Care Team (Late st Contact Info) Description 07/21/2020 Telephone [facility] Reproductive Medicine & Infertility Center - [address] [address] [place] [address] [place] [address] Results (D1 embryology) Social History Tobacco Use Types Packs/Day Years [...] Telephone Encounter - Johanne Khan RN - 07/22/2020 1314 EST Call to pt to schedule embryo transfer. This will be a day 3 transfer. Pt instructed to arrive at 0900 for a 0930 procedure on 07/23. Patient instructions: ?? Check in at the [...] Pt verbalized understanding of instructions and plan. * Telephone Encounter - Micah Phillip MD - 07/21/2020 1519 EST TELEPHONE CALL TC call to with embryology update: 25 oocytes retrieved 22x MII -> ICSI Day1: 17x 2PN 2x 1PN 1x NF 2x atretric Discussed previously with embryologist who recommends plan to transfer two D3 embryos with cryopreservation either on D3 or D5 depending on the embryology at that time. This is a personalized approached based off the patient's prior embryo progression in her first fresh cycle and subsequent two transfers. Discussed in detail with the patient who verbalizes understanding. Reviewed her daily IM progesterone dose is 2 mL (100 mg) daily. Note routed to RN team for further Saturday D3 ET appointment coordination. Electronically signed by: Micah Phillip MD, PGY7 Fellow Reproductive Endocrinology & Infertility [facility] 07/21/2020 / 15:27 documented in this encounter Plan of Treatment Not on file documented as of this encounter Visit Diagnoses Not on filedocumented in this encounter Care Teams Sales Process Manager Relationship Specialty Start Date End Date [facility] Internal Medicine, [address] [place] [address] PCP - General 11/03/15 10/01/23 documented as of this encounter
--- OUTSIDE RECORDS SUMMARY | 2024-09-16 01:36 | XMS_ITS | Encounter Summary ---
Author Organization [facility] Address [address] [place] [address] Care Team Providers Care Stallion Keeper Name Role Phone [facility] Internal Medicine, Primary Care Provi darrel Reason for Visit * Reason Onset Date Comments Appointment Related 08/03/2020 Encounter Details Date Type Department Care Team (Late st Contact Info) Description 08/03/2020 Telephone [facility] OBGYN Services - [address] [address] Maryan Jameson MD [address] [facility] [address] [place] [address] Appointment Related Social History Tobacco Use Types Packs/Day Years [...] have Coronavirus / COVID-19? No / Unsure 08/03/2020 8:37 EST documented as of this encounter Functional [...] encounter Miscellaneous Notes * Telephone Encounter - Aurelia Cavanaugh - 08/03/2020 1515 EST LVM for pt to call back to schedule cycle review with MBP after unsuccessful IVF cycle. Left [id number] documented in this encounter Plan of Treatment Not on file documented as of this encounter Visit Diagnoses Not on filedocumented in this encounter Care Teams Stallion Keeper Relationship Specialty Start Date End Date [facility] Medicine, [facility] [address] [place] [place] [address] PCP - General 11/03/15 10/01/23 documented as of this encounter
--- OUTSIDE RECORDS SUMMARY | 2024-09-16 01:36 | XMS_ITS | Encounter Summary ---
Author Organization [facility] Address [address] [place] [address] Care Team Providers Care Oil Derrick Operator Name Role Phone [facility] Internal Medicine, Primary Care Provi darrel Unknown, Provider Primary Care Provider Unava ilable None, Provider Primary Care Provider Unavailabl e Reason for Visit * Reason Onset Date Comments COVID-19 07/14/2020 Encounter Details Date Type Department Care Team (Late st Contact Info) Description 07/14/2020 Telephone [place] [facility] [address] [place] [address] Micah Phillip MD [address] [place] [address] [address] [place] [address] COVID-19 Social History Tobacco Use Types Packs/Day Years [...] encounter Miscellaneous Notes * Telephone Encounter - Chetan Duron - 07/15/2020 1135 EST Reservation Clerk made second attempt to schedule COVID-19 test prior to 07/22 procedure. Left voicemail with callback number [phone]. * Telephone Encounter - Shruthi Deleon - 07/14/2020 1158 EST Called the patient to schedule for Covid testing prior 07/22 procedure. Patient stated she needed to clarify few things with the nurse on her pre-op appointment on Saturday, before scheduling for test, thereafter. First attempt to schedule. documented in this encounter Plan of Treatment Not on file documented as of this encounter Visit Diagnoses Not on filedocumented in this encounter Care Teams Oil Derrick Operator Relationship Specialty Start Date End Date [facility] Internal Medicine, [place] [address] [place] [address] PCP - General 11/03/15 10/01/23 Unknown, Provider, [place] [address] [place] [address] PCP - General 10/02/23 4 None, Provider PCP - General 05/09/24 documented as of this encounter
--- OUTSIDE RECORDS SUMMARY | 2024-09-16 01:36 | XMS_ITS | Encounter Summary ---
Author Organization [facility] Address [address] [place] [address] Care Team Providers Care Emergency Room Tech Name Role Phone [facility] Internal Medicine, Primary Care Provi darrel Reason for Referral * BUSINESS OPERATIONS CONSULTANT (Routine) - Specialty Report Received Specialty Diagnoses / Procedures [facility] Referred To Contact Diagnoses Encounter for assisted reproductive fertility cycle Procedures US FLEECER EXAM (BALBIR ONLY) Micah Phillip MD Phone: tel: fax: Referral ID Status Reason Start Date Expiration Date V isits Requested Visits Authorized [id number] Specialty Report Received 07/15/2020 1 1 Reason for Visit * Reason Onset Date Comments Results 07/15/2020 Encounter Details Date Type Department Care Team (Late st Contact Info) Description 07/15/[address] [facility] Reproductive Medicine & Infertility Center - [address] [address] Meliza Moise RN Results Social [...] Telephone Encounter - Meliza Moise RN - 07/15/2020 1528 EST Telephoned patient to review results of labs and continued medication plan. Component Latest Ref Rng & Units 07/15/2020 Estradiol See Note pg/mL 1,777 Progesterone See Table ng/mL 1.0 Advised patient to continue Lupron 5 units, GN 2/. Next step is USE Saturday at 9 am. Pt verbalized understanding and has no further questions. Pt reports an isolated episode of 9/10 pain after tripping last night, reports the pain was so severe that she felt nauseous. It has since resolved. Advised her that when ovaries are being stimulated there is a risk of torsion, so if this happens again and persists for longer than half an hour should page the chief innovation officer provider. Pt verbalized understanding and has no further questions. documented in this encounter Plan of Treatment Not on file documented as of this encounter Results * US FLEECER EXAM (BALBIR ONLY) (07/17/2020 9:07 EST) Anatomical Region Laterality Modality Ultrasound 07/17/2020 9:08 EST Narrative 07/17/2020 10:16 EST Indication Med day 10 Lupron GN 2/. Uterus ======= Uterus: ?Appears normal Uterus position: ?? Anteverted Endometrium: ?? Trilaminar endometrium Endometrial thickness, total ?? 11.5 mm Right Ovary Rt ovary: ??Stimulated w/ multiple follicles consistent w/ hormonal therapy Rt ovarian follicle(s): ?Follicles identified D1 20.1 mm D2 15.1 mm D3 18.4 mm Mean ?? 17.9 mm Vol ?2.920 cm cubed D1 22.9 mm D2 10.5 mm D3 19.0 mm Mean ?? 17.4 mm Vol ?2.386 cm cubed D1 14.1 mm D2 18.3 mm D3 18.2 mm Mean ?? 16.9 mm Vol ?2.474 cm cubed D1 20.6 mm D2 9.8 mm D3 19.4 mm Mean ?? 16.6 mm Vol ?2.047 cm cubed D1 19.0 mm D2 15.5 mm D3 15.0 mm Mean ?? 16.5 mm Vol ?2.311 cm cubed D1 22.7 mm D2 15.3 mm D3 10.5 mm Mean ?? 16.1 mm Vol ?1.903 cm cubed D1 15.6 mm D2 20.3 mm D3 11.6 mm Mean ?? 15.8 mm Vol ?1.911 cm cubed D1 16.9 mm D2 11.6 mm D3 17.0 mm Mean ?? 15.2 mm Vol ?1.752 cm cubed D1 14.2 mm D2 12.7 mm D3 13.7 mm Mean ?? 13.5 mm Vol ?1.294 cm cubed D1 9.5 mm D2 14.8 mm D3 13.5 mm Mean ?? 12.6 mm Vol ?0.994 cm cubed D1 14.5 mm D2 8.6 mm D3 12.3 mm Mean ?? 11.8 mm Vol ?0.798 cm cubed D1 11.3 mm D2 11.4 mm D3 10.2 mm Mean ?? 11.0 mm Vol ?0.692 cm cubed Left Ovary Lt ovary: ??Stimulated w/ multiple follicles consistent w/ hormonal therapy Lt ovarian follicle(s): ?Follicles identified D1 20.6 mm D2 15.7 mm D3 22.1 mm Mean ?? 19.4 mm Vol ?3.727 cm cubed D1 12.9 mm D2 18.2 mm D3 22.1 mm Mean ?? 17.7 mm Vol ?2.706 cm cubed D1 17.7 mm D2 16.3 mm D3 18.1 mm Mean ?? 17.4 mm Vol ?2.743 cm cubed D1 20.2 mm D2 14.5 mm D3 16.9 mm Mean ?? 17.2 mm Vol ?2.593 cm cubed D1 17.4 mm D2 15.2 mm D3 18.9 mm Mean ?? 17.2 mm Vol ?2.621 cm cubed D1 11.6 mm D2 18.1 mm D3 19.0 mm Mean ?? 16.2 mm Vol ?2.087 cm cubed D1 19.2 mm D2 13.9 mm D3 14.1 mm Mean ?? 15.7 mm Vol ?1.956 cm cubed D1 17.6 mm D2 11.6 mm D3 15.8 mm Mean ?? 15.0 mm Vol ?1.691 cm cubed D1 13.1 mm D2 16.3 mm D3 14.4 mm Mean ?? 14.6 mm Vol ?1.614 cm cubed D1 13.6 mm D2 9.0 mm D3 10.9 mm Mean ?? 11.2 mm Vol ?0.701 cm cubed [place] No free fluid visualized. Impression USE (IVF Follicular) - [id number] 1. Maturing folliculogenesis bilaterally. 2. Trilaminar endometrium. 3. No free fluid in pelvis. Follow-up E2/P today, plan per ART team. DATE OF SERVICE: 07/17/2020 Procedure Note Meliza Sena MD - 07/17/2020 Indication Med day 10 Lupron GN 09/12. Uterus ======= Uterus: Appears normal Uterus position: Anteverted Endometrium: Trilaminar endometrium Endometrial thickness, total 11.5 mm Right Ovary Rt ovary: Stimulated w/ multiple follicles consistent w/ hormonaltherapy Rt ovarian follicle(s): Follicles identified D1 20.1 mm D2 15.1 mm D3 18.4 mm Mean 17.9 mm Vol 2.920 cm cubed D1 22.9 mm D2 10.5 mm D3 19.0 mm Mean 17.4 mm Vol 2.386 cm cubed D1 14.1 mm D2 18.3 mm D3 18.2 mm Mean 16.9 mm Vol 2.474 cm cubed D1 20.6 mm D2 9.8 mm D3 19.4 mm Mean 16.6 mm Vol 2.047 cm cubed D1 19.0 mm D2 15.5 mm D3 15.0 mm Mean 16.5 mm Vol 2.311 cm cubed D1 22.7 mm D2 15.3 mm D3 10.5 mm Mean 16.1 mm Vol 1.903 cm cubed D1 15.6 mm D2 20.3 mm D3 11.6 mm Mean 15.8 mm Vol 1.911 cm cubed D1 16.9 mm D2 11.6 mm D3 17.0 mm Mean 15.2 mm Vol 1.752 cm cubed D1 14.2 mm D2 12.7 mm D3 13.7 mm Mean 13.5 mm Vol 1.294 cm cubed D1 9.5 mm D2 14.8 mm D3 13.5 mm Mean 12.6 mm Vol 0.994 cm cubed D1 14.5 mm D2 8.6 mm D3 12.3 mm Mean 11.8 mm Vol 0.798 cm cubed D1 11.3 mm D2 11.4 mm D3 10.2 mm Mean 11.0 mm Vol 0.692 cm cubed Left Ovary Lt ovary: Stimulated w/ multiple follicles consistent w/ hormonaltherapy Lt ovarian follicle(s): Follicles identified D1 20.6 mm D2 15.7 mm D3 22.1 mm Mean 19.4 mm Vol 3.727 cm cubed D1 12.9 mm D2 18.2 mm D3 22.1 mm Mean 17.7 mm Vol 2.706 cm cubed D1 17.7 mm D2 16.3 mm D3 18.1 mm Mean 17.4 mm Vol 2.743 cm cubed D1 20.2 mm D2 14.5 mm D3 16.9 mm Mean 17.2 mm Vol 2.593 cm cubed D1 17.4 mm D2 15.2 mm D3 18.9 mm Mean 17.2 mm Vol 2.621 cm cubed D1 11.6 mm D2 18.1 mm D3 19.0 mm Mean 16.2 mm Vol 2.087 cm cubed D1 19.2 mm D2 13.9 mm D3 14.1 mm Mean 15.7 mm Vol 1.956 cm cubed D1 17.6 mm D2 11.6 mm D3 15.8 mm Mean 15.0 mm Vol 1.691 cm cubed D1 13.1 mm D2 16.3 mm D3 14.4 mm Mean 14.6 mm Vol 1.614 cm cubed D1 13.6 mm D2 9.0 mm D3 10.9 mm Mean 11.2 mm Vol 0.701 cm cubed [place] No free fluid visualized. Impression USE (IVF Follicular) - [id number] 1. Maturing folliculogenesis bilaterally. 2. Trilaminar endometrium. 3. No free fluid in pelvis. Follow-up E2/P today, plan per ART team. DATE OF SERVICE: 07/17/2020 Micah Phillip MD [facility] OB ORDERABLES Final Result documented in this encounter Visit Diagnoses Diagnosis In vitro fertilization- Primary Encounter for assisted reproductive fertility procedure cycle Encounter for assisted reproductive fertility cycle Encounter for assisted reproductive fertility procedure cycle Encounter for assisted reproductive fertility cycle Encounter for assisted reproductive fertility procedure cycle documented in this encounter Care Teams Emergency Room Tech Relationship Specialty Start Date End Date [facility] Internal Medicine, [place] [address] [place] [address] PCP - General 11/03/15 10/01/23 documented as of this encounter
--- OUTSIDE RECORDS SUMMARY | 2024-09-16 01:36 | XMS_ITS | Encounter Summary ---
Author Organization [facility] Address [address] [place] [address] Care Team Providers Care Commercial Lines Account Assistant Name Role Phone [facility] Internal Medicine, Primary Care Provi darrel Encounter Details Date Type Department Care Team (Latest Contact Info) Description 08/03/2020 Travel Social History Tobacco Use Types Packs/Day [...] on filedocumented in this encounter Care Teams Commercial Lines Account Assistant Relationship Specialty Start Date End Date [facility] Internal Medicine, [place] [address] [place] [address] PCP - General 11/03/15 10/01/23 documented as of this encounter
--- OUTSIDE RECORDS SUMMARY | 2024-09-16 01:36 | XMS_ITS | Encounter Summary ---
Author Organization [facility] Address [address] [place] [address] Care Team Providers Care Sandfill Operator Name Role Phone [facility] Internal Medicine, Primary Care Provi darrel Reason for Visit * Reason Onset Date Comments Results 07/06/2020 Encounter Details Date Type Department Care Team (Late st Contact Info) Description 07/06/2020 Telephone [facility] Reproductive Medicine & Infertility Center - [address] [address] Lanette Pagan RN Results Social History [...] Miscellaneous Notes * Telephone Encounter - Lanette Pagan, RN - 07/06/2020 1305 EST Images from the original note were not included. Telephoned patient to review results of baseline labs and ultrasound, and to confirm medication plan Component Latest Ref Rng & Units 07/06/2020 Estradiol See Note pg/mL 25 Progesterone See Table ng/mL 0.3 Advised patient to begin GN 4/2 on Saturday07/08/20. Next step is E2 on 07/11/20 @ [facility]. Order faxed. Discussed with Dr Hyman. Pt reports that she was able to obtain 3 more boxes of Menopur today from the [facility] pharmacy so she should have plenty for her cycle (current national shortage causing some difficulty obtaining currently ) Reviewed to take the GN in the evenings, decrease Lupron to 5 units on morning of Sunday 07/08. Pt inquired about videos for demonstration of mixing meds- directed to [facility] website if shewished to view a video (the patient declined a repeat teaching class) . She verbalized understanding of plan. Calender as below: documented in this encounter Plan of Treatment Not on file documented as of this encounter Results * ESTRADIOL, ADULTS (07/13/2020 11:58 EST) Estradiol 967 See Note pg/mL 07/13/2020 13:26 EST [facility] Comment: NOTE: FEMALE [...] 07/13/2020 11:58 EST 07/13/2020 12:23 EST us Sue Hyman MD CHEMISTRY & BLOOD GAS ORD ERABLES Final Result [facility] [address] [place] [address] documented in this encounter Visit Diagnoses Diagnosis Encounter for assisted reproductive fertility cycle- Primary Encounter for assisted reproductive fertility procedure cycle documented in this encounter Care Teams Sandfill Operator Relationship Specialty Start Date End Date [facility] Internal Medicine, [place] [address] [place], [place] [address] PCP - General 11/03/15 10/01/23 documented as of this encounter
--- OUTSIDE RECORDS SUMMARY | 2024-09-16 01:36 | XMS_ITS | Encounter Summary ---
Author Organization [facility] Address [address] [place] [address] Care Team Providers Care Retail Event And Sales Assistant Name Role Phone [facility] Internal Medicine, Primary Care Provi darrel Encounter Details Date Type Department Care Team (Late st Contact Info) Description 07/23/2020 Orders Only [facility] Reproductive Medicine & Infertility Center - [facility] [address] [place] [address] Johanne Khan, MALIA [address] [place] [address] Social History Tobacco Use Types Packs/Day Years [...] mL into the muscle daily. 1 Vial 07/23/2020 10/04/2020 documented in this encounter Plan of Treatment Not on file documented as of this encounter Visit Diagnoses Not on filedocumented in this encounter Discontinued Medications Medication Sig Discontinue Reason Start Date End Da te norgestimate-ethinyl estradioL (ORTHO-CYCLEN, 28,) 0.25-35 mg-mcg per tablet Take active tabs continuously. Discard inactive tabs. 04/19/2020 07/23/2020 documented as of this encounter Care Teams Retail Event And Sales Assistant Relationship Specialty Start Date End Date [facility] Internal Medicine, [place] [address] [place] [address] PCP - General 11/03/15 10/01/23 documented as of this encounter
--- OUTSIDE RECORDS SUMMARY | 2024-09-16 01:36 | XMS_ITS | Encounter Summary ---
Author Organization [facility] Address [address] [place] [address] Care Team Providers Care Food Specialist Name Role Phone [facility] Internal Medicine, Primary Care Provi darrel Reason for Referral * TRANSACTION MANAGER (Routine) - Specialty Report Received Specialty Diagnoses / Procedures Referred By Serene martinez Referred To Contact Diagnoses Encounter for assisted reproductive fertility cycle Procedures US BASELINE INVITRO Micah Phillip MD Phone: tel: fax: Referral ID Status Reason Start Date Expiration Date V isits Requested Visits Authorized [id number] Specialty Report Received 07/04/2020 1 1 Reason for Visit * TRANSACTION MANAGER (Routine) - Specialty Report Received Specialty Diagnoses / Procedures Referred By Serene martinez Referred To Contact Diagnoses Encounter for assisted reproductive fertility cycle Procedures [facility] INVITRO Micah Phillip MD Phone: tel: fax: Referral ID Status Reason Start Date Expiration Date V isits Requested Visits Authorized [id number] Specialty Report Received 07/04/2020 1 1 Encounter Details Date Type Department Care Team (Latest Contact Info) Description 07/06/2020 8:40 EST - 07/06/2020 23:59 EST Hospital Encounter [facility] OBGYN Services - [place] [address] [place] [address] Encounter for assisted reproductive fertility [...] this encounter Medications at Time of Discharge leuprolide (LUPRON) 1 mg/0.2 mL injection Inject 20 units into the skin. Decrease to 10 units when directed. 2 Each 03/31/2019 09/06/2020 norgestimate-eth inyl estradioL (ORTHO-CYCLEN, 28,) 0.25-35 mg-mcg per tablet Take active tabs continuously. Discard inactive tabs. 56 Tab 04/19/2020 07/23/2020 documented as of this encounter Discharge Disposition Disposition Code Departure Means Destination Home or Self Care documented in this encounter Plan of Treatment Not on file documented as of this encounter Procedures Procedure Name Priority Date/Time Associated Diagnosis Comments US BASELINE INVITRO Routine 07/06/2020 9:25 EST Encounter for assisted reproductive fertility cycle documented in this encounter Results * US BASELINE INVITRO (07/06/2020 9:25 EST) Anatomical Region Laterality Modality Pelvis Ultrasound 07/06/2020 12:2 5 EST Narrative 08/20/2020 17:18 EST Indication Baseline for IVF cycle #2 for unexplained infertility. Trial embryo transfer. Uterus ======= Uterus: ?Appears normal Uterus position: ?? Anteverted Myometrium: ?Fibroid Endometrium: ?? Thin endometrium Cervix details: ?Normal appearance Uterus long ?6.9 cm Uterus ap ??3.1 cm Endometrial thickness, total ?? 3.4 mm Fibroids: ??Fibroids identified Findings: ??4 - Intramural - does not contact endometrium. Anterior left. D1 14.4 mm D2 13.4 mm D3 11.0 mm Mean ?? 13.0 mm Vol ?1.116 cm cubed Right Ovary Rt ovary: ??Visualized, normal appearance Rt ovary details: ??Quiescent Rt ovary D1 ?3.0 cm Rt ovary D2 ?1.8 cm Rt ovary D3 ?1.8 cm Rt ovary mean ??2.2 cm Rt ovary vol ?? 5.0 cm cubed Rt ovary other findings: ?? AFC = 11 Left Ovary Lt ovary: ??Visualized, normal appearance Lt ovary details: ??Quiescent Lt ovary D1 ?2.7 cm Lt ovary D2 ?2.4 cm Lt ovary D3 ?1.5 cm Lt ovary mean ??2.2 cm Lt ovary vol ?? 4.9 cm cubed Lt ovary other findings: ?? AFC =11 [place] Appears normal. No free fluid visualized. Method ======== Transabdominal and transvaginal ultrasound examination, probe #1. Impression Baseline - [address] Normal anteverted uterus, thin endometrium. 1.4 cm intramural fibroid. Trial embryo transfer with fundal length 7 cm, transfer length 5.5 cm. Normal quiescent ovaries. Combined AFC of 22. Follow-up Plan per IVF team. Comment ========= Z31.83 encounter for assisted reproductive fertility procedure cycle. DATE OF SERVICE: 07/06/2020 Procedure Note Sue Hyman MD - 08/20/2020 Indication Baseline for IVF cycle #2 for unexplained infertility. Trial embryotransfer. Uterus ======= Uterus: Appears normal Uterus position: Anteverted Myometrium: Fibroid Endometrium: Thin endometrium Cervix details: Normal appearance Uterus long 6.9 cm Uterus ap 3.1 cm Endometrial thickness, total 3.4 mm Fibroids: Fibroids identified Findings: 4 - Intramural - does not contact endometrium. Anterior left. D1 14.4 mm D2 13.4 mm D3 11.0 mm Mean 13.0 mm Vol 1.116 cm cubed Right Ovary Rt ovary: Visualized, normal appearance Rt ovary details: Quiescent Rt ovary D1 3.0 cm Rt ovary D2 1.8 cm Rt ovary D3 1.8 cm Rt ovary mean 2.2 cm Rt ovary vol 5.0 cm cubed Rt ovary other findings: AFC = 11 Left Ovary Lt ovary: Visualized, normal appearance Lt ovary details: Quiescent Lt ovary D1 2.7 cm Lt ovary D2 2.4 cm Lt ovary D3 1.5 cm Lt ovary mean 2.2 cm Lt ovary vol 4.9 cm cubed Lt ovary other findings: AFC =11 [place] Appears normal. No free fluid visualized. Method ======== Transabdominal and transvaginal ultrasound examination, probe #1. Impression Baseline - [address]996 Normal anteverted uterus, thin endometrium. 1.4 cm intramural fibroid. Trial embryo transfer with fundal length 7 cm, transfer length 5.5 cm. Normal quiescent ovaries. Combined AFC of 22. Follow-up Plan per IVF team. Comment ========= Z31.83 encounter for assisted reproductive fertility procedure cycle. DATE OF SERVICE: 07/06/2020 Micah Phillip MD [facility] OB ORDERABLES Final Result documented in this encounter Visit Diagnoses Diagnosis Encounter for assisted reproductive fertility cycle Encounter for assisted reproductive fertility procedure cycle documented in this encounter Care Teams Food Specialist Relationship Specialty Start Date End Date [facility] Internal Medicine, [place] [address] [place] [address] PCP - General 11/03/15 10/01/23 documented as of this encounter
--- OUTSIDE RECORDS SUMMARY | 2024-09-16 01:36 | XMS_ITS | Encounter Summary ---
Author Organization [facility] Address [address] [place] [address] Care Team Providers Care Manager Strategic Alliances Name Role Phone [facility] Internal Medicine, Primary Care Provi darrel Reason for Referral * LEAD MACHINIST (Routine) - Specialty Report Received Specialty Diagnoses / Procedures Referred By Serene martinez Referred To Contact Diagnoses Encounter for assisted reproductive fertility cycle Procedures US BASELINE INVITRO Maryan Jameson MD Phone: tel: fax: Referral ID Status Reason Start Date Expiration Date V isits Requested Visits Authorized [id number] Specialty Report Received 09/06/2020 1 1 Reason for Visit * LEAD MACHINIST (Routine) - Specialty Report Received Specialty Diagnoses / Procedures Referred By Serene martinez Referred To Contact Diagnoses Encounter for assisted reproductive fertility cycle Procedures US BASELINE INVITRO Maryan Jameson MD Phone: tel: fax: Referral ID Status Reason Start Date Expiration Date V isits Requested Visits Authorized [id number] Specialty Report Received 09/06/2020 1 1 Encounter Details Date Type Department Care Team (Latest Contact Info) Description 10/17/2020 7:58 EST - 10/17/2020 23:59 EST Hospital Encounter [facility] [address] [place] [address] [phone] Encounter for assisted reproductive fertility cycle Discharge [...] Associated Diagnosis Comments US BASELINE INVITRO Routine 10/17/2020 8:11 EST Encounter for assisted reproductive fertility cycle documented in this encounter Results * US BASELINE INVITRO (10/17/2020 8:11 EST) Anatomical Region Laterality Modality Pelvis Ultrasound 10/17/2020 8:12 EST Narrative 10/17/2020 8:31 EST Indication 35 yo with unexplained infertility, baseline for FET cycle #2. Uterus ======= Uterus: ?Appears normal Uterus position: ?? Anteverted Myometrium: ?Fibroid Endometrium: ?? Thin endometrium Cervix details: ?Normal appearance Endometrial thickness, total ?? 2.7 mm Right Ovary Rt ovary: ??Visualized, normal appearance Rt ovary details: ??Quiescent Rt ovarian cyst(s): ?No cysts identified Left Ovary Lt ovary: ??Visualized, normal appearance Lt ovary details: ??Quiescent Lt ovarian cyst(s): ?No cysts identified Cul de Sac Appears normal. No free fluid visualized. Method ======== Transvaginal ultrasound examination. View: Good view. Impression Baseline - 02012 Anteverted uterus, thin endometrium with small stable Type 5 anterior-left fibroid. Normal quiescent ovaries. Follow-up Ultrasound clear to start medicated FET protocol; plan per IVF team. Comment ========= Z31.83 encounter for assisted reproductive fertility procedure cycle. DATE OF SERVICE: 10/17/2020 Procedure Note Sue Hyman MD - 10/17/2020 Indication 35 yo with unexplained infertility, baseline for FET cycle #2. Uterus ======= Uterus: Appears normal Uterus position: Anteverted Myometrium: Fibroid Endometrium: Thin endometrium Cervix details: Normal appearance Endometrial thickness, total 2.7 mm Right Ovary Rt ovary: Visualized, normal appearance Rt ovary details: Quiescent Rt ovarian cyst(s): No cysts identified Left Ovary Lt ovary: Visualized, normal appearance Lt ovary details: Quiescent Lt ovarian cyst(s): No cysts identified Cul de Sac Appears normal. No free fluid visualized. Method ======== Transvaginal ultrasound examination. View: Good view. Impression Baseline - 71066 Anteverted uterus, thin endometrium with small stable Type 5 anterior- leftfibroid. Normal quiescent ovaries. Follow-up Ultrasound clear to start medicated FET protocol; plan per IVF team. Comment ========= Z31.83 encounter for assisted reproductive fertility procedure cycle. DATE OF SERVICE: 10/17/2020 us Maryan Torres MD [facility] US OB ORDER SUNSHINE Final Result documented in this encounter Visit Diagnoses Diagnosis Encounter for assisted reproductive fertility cycle Encounter for assisted reproductive fertility procedure cycle documented in this encounter Care Teams Manager Strategic Alliances Relationship Specialty Start Date End Date [facility] Internal Medicine, [place] [address] [place] [address] PCP - General 11/03/15 10/01/23 documented as of this encounter
--- OUTSIDE RECORDS SUMMARY | 2024-09-16 01:36 | XMS_ITS | Encounter Summary ---
Author Organization [facility] Address [address] [place] [address] Care Team Providers Care Database Marketing Analyst Name Role Phone [facility] Internal Medicine, Primary Care Provi darrel Encounter Details Date Type Department Care Team (Late st Contact Info) Description 07/20/2020 7:49 EST - 07/20/2020 8:25 EST Hospital Encounter [facility] Reproductive Medicine & Infertility Center - [address] [phone] Sue Hyman MD [address] [facility] [address] [place] [phone] Luigi Avila MD [facility] 111 [facility] 2 [place] [address] Encounter for assisted reproductive fertility [...] 13:32 EST documented as of this encounter Last Filed Vital Signs Vital Sign Reading Time Taken Comments Blood Pressure 108/72 07/20/2020 0815 EST Pulse 88 07/20/2020 0815 EST Temperature 36 ??C (96.8 ??F) 07/20/2020 0815 EST Respiratory Rate 16 07/20/2020 0815 EST Oxygen Saturation - - Inhaled Oxygen Concentration - - Weight - [...] this encounter Medications at Time of Discharge cabergoline (DOSTINEX) 0.5 mg tablet Take 1 Tab by mouth daily. 8 Tab 07/19/2020 09/06/2020 leuprolide (LUPRON) 1 mg/0.2 mL injection [...] documented in this encounter Progress Notes * Lanette Pagan RN - 07/20/2020 0830 EST Post egg retrieval instructions Plan to rest/relax for the remainder of the day. Following your egg retrieval, you may experience some pelvic area tenderness and feel tired or sleepy from the medications you have received during the procedure. You may also have some light vaginalspotting. This bleeding should be scant and may be red to brown in color. If you need pain medication, you may use the narcotic medication prescribed by your physician and/or Tylenol. You may also use ibuprofen or naproxen. The medications used during your retrieval may not be eliminated by your body for up to 24 hours. During this period we ask that you do not: 1. Drive a car or operate machinery or power tools. 2. Drink any alcoholic beverages. 3. Make any important decisions. You may eat whatever you like after the retrieval, as long as you are not nauseated. If you experience nausea, stick to clear liquids and crackers until the nausea subsides. Do not put anything in your vagina, including tampons. You should abstain from intercourse for 1-2 weeks depending on your comfort. If after 1 week you feel recovered and your abdomen is not distended it is ok to resume intercourse. Please contact the nurses at [phone] M-F 8am-430pm if you notice any of the following: ??? Fever greater than 100.4 F that lasts for more than two hours ??? Excessive vaginal bleeding ??? Unusual and increasing pelvic area discomfort ??? Difficulty with urination or change in bowel activity ??? Nausea, vomiting or diarrhea ??? Sharp or shooting pains ??? Pain or burning during urination ??? Abdominal swelling ??? Unusual back pain ??? Weight gain of more than 5 pounds in 72 hours For issues or concerns after office hours M-F or over the weekend please call [phone]. Ask iesha MCGREGOR doctor project construction manager to return your call. * Lanette Pagan RN - 07/20/2020 0830 EST Patient with VSS. Tolerating po. Pain well managed. OOB to void. PIV d/c'd, catheter intact, pressure dressing applied. Discharged home in stable condition with . documented in this encounter Procedure Notes * Grace Gupta MD - 07/20/2020 0830 ESTProcedure(s): OR FOLLICLE PUNCTURE OOCYTE RETRIEVAL ANY METHOD Pre-Procedure Diagnose(s): Encounter for assisted reproductive fertility procedure cycle Post-Procedure Diagnose(s): Encounter for assisted reproductive fertility procedure cycle IVF OOCYTE RETRIEVAL PROCEDURE NOTE Procedure: Ultrasound-guided oocyte retrieval with a single lumen catheter Anesthesia: MAC Attending: Dr. Gupta Metallographic Technician: Dr. Phillip Antibiotics: Ancef 2 g IV EBL: 10 cc Urine output: patient spontaneous voided prior to the start of the procedure Ultrasound Visualization Transvaginal: good Findings: 1. Enlarged ovaries bilaterally consistent with hormone stimulation 2. Oocytes retrieved: 25 total 3. Endometrium: 11.6 mm, trilaminar 4. Free Fluid: mild Procedure [...] ovaries were visualized. Using a single lumen catheter the ovarian follicles were sequentially drained and carried to the embryology lab. Flushes of culture media throughout the procedure as well as at the end of the procedure were performed to ensurecollection of all the oocytes. Once all of the follicles were drained the ultrasound was removed and the speculum was reinserted. The cervix was visualized and minimal bleeding was present. The ultrasound probe was reinserted one additional time to assess the cul de sac and there was a moderate amount of simple fluid without active accumulation. The patient then awoke from sedation without issue and was transferred to the recovery area in stable and satisfactory condition. Condition: stable Disposition: IVF Recovery Room Complications: None Attending Dr. Gupta was present and scrubbed for the entirety of the procedure. Electronically signed by: Micah Phillip MD, PGY7 Fellow Reproductive Endocrinology & Infertility [facility] 07/20/2020 / 9:47 MD Supervising Fellow/Resident???s in the Primary Care Exception setting: I discussed the case with the resident at the time of the visit. I have reviewed the fellow???s/resident???s note and agree except as noted: Patient to be followed regarding oocytes. Physician Signature: __Grace Gupta M.D. Date: __07/20/20_ Time: __9:00 am documented in this encounter Plan of Treatment Not on file documented as of this encounter Procedures Procedure Name Priority Date/Time Associated Diagnosis Comments POC IVF/BALBIR US GUIDANCE Routine 07/20/2020 8:26 EST documented in this encounter Results * POC IVF/BALBIR US GUIDANCE (07/20/2020 8:26 EST) Narrative 07/20/2020 8:26 EST This is a non-reportable exam. us Micah Phillip MD [facility] [place] POC ORDERABLES Leticia kelly Result documented in this encounter Visit Diagnoses Diagnosis Encounter for assisted reproductive fertility procedure cycle documented in this encounter Administered Medications Inactive Administered Medications - up to 3 most recent administrations Medication Order MAR Action Action Date Dose Rate Site ceFAZolin in dextrose (iso-os) piggyback 2 g/100 mL 2,000 mg, intravenous, Administer over 30 Minutes, NOW X1, 1 dose, On Sat07/20/20 at 0800, Type of Therapy: Prophylaxis, Suspected Indication (Select all that apply): Surgical prophylaxis, Routine Given 07/20/2020 8:30 EST 2,000 mg lactated ringers (LR) infusion at 25 mL/hr, intravenous, CONTINUOUS, Starting on Sat07/20/20 at 1000, Until Diane 09/01/20 at 0621, Routine, Preprocedure New Bag 07/20/2020 8:00 EST 25 mL/hr progesterone in oil injection 100 mg 100 mg, intramuscular, DAILY, First dose on Sat07/20/20 at 0900, Until Discontinued, Routine Given 07/20/2020 9:36 EST 100 mg documented in this encounter Orders Medications Ordered That Elroy ht Not Have Been Administered Count Last Ordered Date First Ordered Date progesterone in oil injection 100 mg 1 04/2020 documented in this encounter Care Teams Database Marketing Analyst Relationship Specialty Start Date End Date [facility] Internal Medicine, [place] [address] [place] [address] PCP - General 11/03/15 10/01/23 documented as of this encounter
--- OUTSIDE RECORDS SUMMARY | 2024-09-16 01:36 | XMS_ITS | Encounter Summary ---
Author Organization [facility] Address [address] [place] [address] Care Team Providers Care Senior Ruby Developer Name Role Phone [facility] Internal Medicine, Primary Care Provi darrel Encounter Details Date Type Department Care Team (Late st Contact Info) Description 10/17/2020 Orders Only [facility] Reproductive Medicine & Infertility Center - [address] [phone] Michelle Byers MD Encounter for assisted reproductive fertility procedure [...] encounter Miscellaneous Notes * Addendum Note - Michelle Byers MD - 10/17/2020 0807 ESTAddended by: MICHELLE BYERS on: 10/17/2020 08:30 Modules accepted: Orders documented in this encounter Plan of Treatment Not on file documented as of this encounter Procedures Procedure Name Priority Date/Time Associated Diagnosis Comments PROGESTERONE Routine 10/17/2020 8:30 EST Encounter for assisted reproductive fertility procedure cycle ESTRADIOL, ADULTS Routine 10/17/2020 8:3 0 EST Encounter for assisted reproductive fertility procedure cycle documented in this encounter Results * PROGESTERONE (10/17/2020 8:30 EST) Progesterone 0.4 See Table ng/mL 10/17/2020 9:47 EST [facility] Comment: Female [...] VENOUS BLOOD / Unknown Venipuncture / Unknown 10/17/2020 8:30 EST 10/17/2020 8:52 EST us Maryan Torres MD CHEMISTRY & BLO OD GAS ORDERABLES Final Result Performing Organization Address [facility] de Phone Number [facility] [address] [place] [address] * ESTRADIOL, ADULTS (10/17/2020 8:30 EST) Estradiol <12 See Note pg/mL 10/17/2020 9:46 EST [facility] Comment: NOTE: [...] VENOUS BLOOD / Unknown Venipuncture / Unknown 10/17/2020 8:30 EST 10/17/2020 8:52 EST us Maryan Torres MD CHEMISTRY & BLO OD GAS ORDERABLES Final Result Performing Organization Address [facility] Co de Phone Number [facility] [address] [place] [address] documented in this encounter Visit Diagnoses Diagnosis Encounter for assisted reproductive fertility procedure cycle- Primary documented in this encounter Care Teams Senior Ruby Developer Relationship Specialty Start Date End Date [facility] Internal Medicine, [facility] [place] [address] PCP - General 11/03/15 10/01/23 documented as of this encounter
--- OUTSIDE RECORDS SUMMARY | 2024-09-16 01:36 | XMS_ITS | Encounter Summary ---
Author Organization [facility] Address [address] [place] [address] Care Team Providers Care Roundhouse Worker Name Role Phone [facility] Internal Medicine, Primary Care Provi darrel Encounter Details Date Type Department Care Team (Late st Contact Info) Description 08/03/2020 8:45 EST Phlebotomy Only [facility] 2 Phlebotomy [address] [place], [place] [phone] Retread Mold Operator, Acc Phlebotomy Encounter for test, result unknown [...] Associated Diagnosis Comments QUANT BETA HCG, Routine 08/03/2020 8:42 EST Encounter for test, result unknown documented in this encounter Results * QUANT BETA HCG, (08/03/2020 8:42 EST) Beta HCG Quant, <5 <5 mIU/ml 08/03/2020 9:41 EST [facility] Comment: NOTE: : Negative: Less than 5mIU/mL Indeterminant: Between 5 and 25 mIU/mL, recommend repeat testing in 48 hours Positive: Greater than 25 mIU/mL The results of this assay can be falsely lowered due to the consumption of Biotin. Blood VENOUS BLOOD / Unknown Venipuncture / Unknown 08/03/2020 8:42 EST 08/03/2020 8:59 EST us Sue Hyman MD CHEMISTRY & BLOOD GAS ORD ERABLES Final Result [facility] [address] [place] [address] documented in this encounter Visit Diagnoses Diagnosis Encounter for test, result unknown documented in this encounter Care Teams Roundhouse Worker Relationship Specialty Start Date End Date [facility] Internal Medicine, [address] [place] [address] PCP - General 11/03/15 10/01/23 documented as of this encounter
--- OUTSIDE RECORDS SUMMARY | 2024-09-16 01:36 | XMS_ITS | Encounter Summary ---
Author Organization [facility] Address [address] [place] [address] Care Team Providers Care Die Maker Bench Stamping Name Role Phone Internal Medicine, Primary Care Provi darrel Encounter Details Date Type Department Care Team (Latest Contact Info) Description 07/20/2020 8:26 EST - 07/20/2020 23:59 EST Hospital Encounter [facility] Reproductive Medicine & Infertility Center - [address] [address] Discharge Disposition: Home or Self Care [...] this encounter Medications at Time of Discharge acetaminophen-codein e (TYLENOL-CODEINE #3) 300-30 mg per tablet Take 1-2 Tabs by mouth every 6 hours as needed for Pain. Daily Max: 8 Tabs 8 Tab 07/20/2020 1 cabergoline (DOSTINEX) 0.5 mg tablet Take 1 Tab by mouth daily. 8 Tab 07/19/2020 1 leuprolide (LUPRON) 1 mg/0.2 mL injection Inject 20 units into the skin. Decrease to 10 units when directed. 2 Each 03/31/2019 1 norgestimate-ethinyl estradioL (ORTHO-CYCLEN, 28,) 0.25-35 mg-mcg per tablet Take active tabs continuously. Discard inactive tabs. 56 Tab 04/19/2020 0 ondansetron (ZOFRAN-ODT) 4 mg disintegrating tablet Take 1 Tab by mouth every 8 hours as needed for up to 3 days for Nausea. 12 Tab 07/20/2020 0 documented as of this encounter Discharge Disposition [...] a non-reportable exam. us Micah Phillip MD [facility] US POC ORDERABLES Leticia l Result documented in this encounter Visit Diagnoses Not on filedocumented in this encounter Care Teams Die Maker Bench Stamping Relationship Specialty Start Date End Date [facility] Internal Medicine, [address] [place] [address] PCP - General 11/03/15 10/01/23 documented as of this encounter
--- OUTSIDE RECORDS SUMMARY | 2024-09-16 01:36 | XMS_ITS | Encounter Summary ---
Author Organization [facility] Address [address] [place] [address] Care Team Providers Care Poker Prop Player Name Role Phone Internal Medicine, Primary Care Provi darrel Reason for Visit * Reason Onset Date Comments Results 08/03/2020 Encounter Details Date Type Department Care Team (Late st Contact Info) Description 08/03/2020 Telephone [facility] Reproductive Medicine & Infertility Center - [address] [address] Micah Phillip MD [address] [phone] Results Social History Tobacco Use Types Packs/Day [...] Telephone Encounter - Micah Phillip MD - 08/03/2020 1201 EST TELEPHONE CALL TC to Reanna with negative HCG results following transfer. Patient had already seen the result on MyChart and was doing reasonably well at the time I called. Appropriately upset. Asked that I call back this afternoon to briefly discuss next steps. In the meantime she will be scheduled for an FET/IVF cycle review appointment with attending Dr. Thompson. ----- Called back to Reanna to discuss her next steps wishes. Patient desires to proceed with FET. I reviewed with the patient her embryology freeze report. Vitrified: six D5 embryos Straw #1: 4AA Straw #2: 4AB Straw #3: 3AA Straw #4: 4BB Straw #5: 2x cav. [place] Deferred specifics of FET recommendations until she has a f/u appt with attending Dr. Thompson. In the meantime she will discontinue her IM progesterone and call us if she experiences any issues. Once we have more established dates for her FET cycle we will reach out as well. Electronically signed by: Micah Phillip MD, PGY7 Fellow Reproductive Endocrinology & Infertility [facility] 08/03/2020 / 12:03 documented in this encounter Plan of Treatment Not on file documented as of this encounter Visit Diagnoses Not on filedocumented in this encounter Care Teams Poker Prop Player Relationship Specialty Start Date End Date [facility] Internal Medicine, [address] [place] [address] PCP - General 11/03/15 10/01/23 documented as of this encounter
--- OUTSIDE RECORDS SUMMARY | 2024-09-16 01:36 | XMS_ITS | Encounter Summary ---
Author Organization [facility] Address [address] [place] [address] Care Team Providers Care Green Meat Packer Name Role Phone [facility] Internal Medicine, Primary Care Provi darrel Encounter Details Date Type Department Care Team (Latest Contact Info) Description 07/15/2020 Travel Social History Tobacco Use Types Packs/Day [...] on filedocumented in this encounter Care Teams Green Meat Packer Relationship Specialty Start Date End Date [facility] Internal Medicine, [place] [address] [place] [address] PCP - General 11/03/15 10/01/23 documented as of this encounter
--- OUTSIDE RECORDS SUMMARY | 2024-09-16 01:36 | XMS_ITS | Encounter Summary ---
Author Organization [facility] Address [address] [place] [address] Care Team Providers Care Cellulose Insulation Helper Name Role Phone [facility] Internal Medicine, Primary Care Provi darrel Reason for Referral * SANDWICH BOARD CARRIER (Routine) - Specialty Report Received Specialty Diagnoses / Procedures Referred By Serene martinez Referred To Contact Diagnoses Encounter for assisted reproductive fertility cycle Procedures US CAR SALESMAN EXAM (BALBIR ONLY) Micah Phillip MD Phone: tel: fax: Referral ID Status Reason Start Date Expiration Date V isits Requested Visits Authorized [id number] Specialty Report Received 07/12/2020 1 1 Reason for Visit * SANDWICH BOARD CARRIER (Routine) - Specialty Report Received Specialty Diagnoses / Procedures Referred By Serene martinez Referred To Contact Diagnoses Encounter for assisted reproductive fertility cycle Procedures US CAR SALESMAN EXAM (BALBIR ONLY) Micah Phillip MD Phone: tel: fax: Referral ID Status Reason Start Date Expiration Date V isits Requested Visits Authorized [id number] Specialty Report Received 07/12/2020 1 1 Encounter Details Date Type Department Care Team (Latest Contact Info) Description 07/13/2020 11:52 EST - 07/13/2020 23:59 EST Hospital Encounter [facility] OBGYN Services - [place] [address] [place] [address] Encounter for assisted reproductive fertility [...] Name Priority Date/Time Associated Diagnosis Comments US CAR SALESMAN EXAM (BALBIR ONLY) Routine 07/13/2020 12:32 EST Encounter for assisted reproductive fertility cycle documented in this encounter Results * US CAR SALESMAN EXAM (BALBIR ONLY) (07/13/2020 12:32 EST) Anatomical Region Laterality Modality Ultrasound 07/13/2020 12:1 2 EST Narrative 09/01/2020 18:24 EST Indication USE OM#. Uterus ======= Uterus: ?Appears normal Uterus position: ?? Anteverted Endometrium: ?? Trilaminar endometrium Uterus long ?7.5 cm Uterus ap ??3.2 cm Uterus tr ??4.4 cm Endometrial thickness, total ?? 6.5 mm Fibroids: ??No fibroids identified Right Ovary Rt ovary: ??Early follicular development Rt ovarian follicle(s): ?Follicles identified D1 9.6 mm D2 9.3 mm D3 9.5 mm Mean ?? 9.5 mm Vol ?0.447 cm cubed D1 11.4 mm D2 11.1 mm D3 12.2 mm Mean ?? 11.6 mm Vol ?0.811 cm cubed Rt ovary other findings: ?? Right AFC total 10+ < 10 mm. Left Ovary Lt ovary: ??Early follicular development Lt ovarian follicle(s): ?Follicles identified D1 12.3 mm D2 9.7 mm D3 10.0 mm Mean ?? 10.7 mm Vol ?0.626 cm cubed D1 9.1 mm D2 8.9 mm D3 10.8 mm Mean ?? 9.6 mm Vol ?0.457 cm cubed D1 11.4 mm D2 9.8 mm D3 10.8 mm Mean ?? 10.7 mm Vol ?0.634 cm cubed Lt ovary other findings: ?? Left AFC total 12 = R 9- 10 mm. [place] Appears normal. No free fluid visualized. Impression Limited transvaginal follicular ultrasound-[id number] 1. Normal anteverted uterus. 2. Trilaminar endometrium. 3. Maturing follicles bilaterally 4. Right AFC total 10+ < 10 mm. 5. Left AFC total 12 = R 9- 10 mm. 6. No free fluid in cul de sac. Follow-up Plan per BALBIR team. Comment ========= Dx: Encounter for assisted reproductive fertility cycle [Z31.83 (ICD-10-CM)]. DATE OF SERVICE: 07/13/2020 Procedure Note Meliza Sena MD - 09/01/2020 Indication USE OM#. Uterus ======= Uterus: Appears normal Uterus position: Anteverted Endometrium: Trilaminar endometrium Uterus long 7.5 cm Uterus ap 3.2 cm Uterus tr 4.4 cm Endometrial thickness, total 6.5 mm Fibroids: No fibroids identified Right Ovary Rt ovary: Early follicular development Rt ovarian follicle(s): Follicles identified D1 9.6 mm D2 9.3 mm D3 9.5 mm Mean 9.5 mm Vol 0.447 cm cubed D1 11.4 mm D2 11.1 mm D3 12.2 mm Mean 11.6 mm Vol 0.811 cm cubed Rt ovary other findings: Right AFC total 10+ < 10 mm. Left Ovary Lt ovary: Early follicular development Lt ovarian follicle(s): Follicles identified D1 12.3 mm D2 9.7 mm D3 10.0 mm Mean 10.7 mm Vol 0.626 cm cubed D1 9.1 mm D2 8.9 mm D3 10.8 mm Mean 9.6 mm Vol 0.457 cm cubed D1 11.4 mm D2 9.8 mm D3 10.8 mm Mean 10.7 mm Vol 0.634 cm cubed Lt ovary other findings: Left AFC total 12 = R 9- 10 mm. [place] Appears normal. No free fluid visualized. Impression Limited transvaginal follicular ultrasound-[id number] 1. Normal anteverted uterus. 2. Trilaminar endometrium. 3. Maturing follicles bilaterally 4. Right AFC total 10+ < 10 mm. 5. Left AFC total 12 = R 9- 10 mm. 6. No free fluid in cul de sac. Follow-up Plan per BALBIR team. Comment ========= Dx: Encounter for assisted reproductive fertility cycle [Z31.83 (ICD-10-CM)]. DATE OF SERVICE: 07/13/2020 us Micah Phillip MD IMG US OB ORDERABLES Final Result documented in this encounter Visit Diagnoses Diagnosis Encounter for assisted reproductive fertility cycle Encounter for assisted reproductive fertility procedure cycle documented in this encounter Care Teams Cellulose Insulation Helper Relationship Specialty Start Date End Date [facility] Internal Medicine, [place] [address] [place] [address] PCP - General 11/03/15 10/01/23 documented as of this encounter
--- OUTSIDE RECORDS SUMMARY | 2024-09-16 01:36 | XMS_ITS | Encounter Summary ---
Author Organization [facility] Address [address] [place] [address] Care Team Providers Care Roving Department End Finder Name Role Phone [facility] Internal Medicine, Primary Care Provi darrel Reason for Referral * MINIATURE TRAIN DRIVER (Routine) - Specialty Report Received Specialty Diagnoses / Procedures [facility] Referred To Contact Diagnoses Encounter for assisted reproductive fertility cycle Procedures US DEBURRER STRIP EXAM (BALBIR ONLY) Micah Phillip MD Phone: tel: fax: Referral ID Status Reason Start Date Expiration Date V isits Requested Visits Authorized [id number] Specialty Report Received 07/12/2020 1 1 Reason for Visit * Reason Onset Date Comments Results 07/12/2020 Encounter Details Date Type Department Care Team (Late st Contact Info) Description 07/12/2020 Telephone [facility] Reproductive Medicine & Infertility Center - [address] [address] Meliza Moise RN Results Social [...] Telephone Encounter - Meliza Moise RN - 07/12/2020 1505 EST Telephoned patient to review results of labs and continued medication plan. Component Latest Ref Rng & Units 07/11/2020 Estradiol See Note pg/mL 306 Advised patient to decrease to GN 3. Next step is USE tomorrow @ [address] Phillip. Discussed withDr Phillip. Pt verbalized understanding and has no further questions. * Telephone Encounter - Meliza Moise RN - 07/12/2020 1503 EST ----- Message from Miach Phillip MD sent at 07/12/2020 14:54 EST ----- Drop to 10/10, USE tomorrow----I know it's super full tomorrow. Can you ask her to come at noon and I'll scan her? documented in this encounter Plan of Treatment Not on file documented as of this encounter Results * US DEBURRER STRIP EXAM (BALBIR ONLY) (07/13/2020 12:32 EST) Anatomical [...] free fluid visualized. Impression Limited transvaginal follicular ultrasound-[id number] 1. Normal anteverted uterus. 2. Trilaminar endometrium. [...] free fluid visualized. Impression Limited transvaginal follicular ultrasound-[id number] 1. Normal anteverted uterus. 2. Trilaminar endometrium. 3. Maturing follicles bilaterally 4. Right AFC total 10+ < 10 mm. 5. Left AFC total 12 = R 9- 10 mm. 6. No free fluid in cul de sac. Follow-up Plan per BALBIR team. Comment ========= Dx: Encounter for assisted reproductive fertility cycle [Z31.83 (ICD-10-CM)]. DATE OF SERVICE: 07/13/2020 Micah Phillip MD IMG US OB ORDERABLES Final Result documented in this encounter Visit Diagnoses Diagnosis Encounter for assisted reproductive fertility cycle- Primary Encounter for assisted reproductive fertility procedure cycle Encounter for assisted reproductive fertility cycle Encounter for assisted reproductive fertility procedure cycle documented in this encounter Care Teams Roving Department End Finder Relationship Specialty Start Date End Date [facility] Internal Medicine, [place] [address] [place] [address] PCP - General 11/03/15 10/01/23 documented as of this encounter
--- OUTSIDE RECORDS SUMMARY | 2024-09-16 01:36 | XMS_ITS | Encounter Summary ---
Author Organization [facility] Address [address] [place] [id number] Care Team Providers Care Clip Baker Name Role Phone [facility] Internal Medicine, Primary Care Provi darrel Reason for Visit * Reason Comments Infertility Encounter Details Date Type Department Care Team (Late st Contact Info) Description 07/06/2020 8:45 EST Office Visit [facility] Reproductive Medicine & Infertility Center - [address] [id number] Seema Clayton MD [address] [facility], [address] [place] [address] Encounter for assisted reproductive fertility cycle (Primary Dx); Routine screening for STI (sexually transmitted infection); Infertility, female, primary Social History Tobacco Use Types Packs/Day Years [...] Reading Time Taken Comments Blood Pressure 102/72 07/06/2020 0853 EST Pulse - - Temperature - - Respiratory Rate - - Oxygen Saturation - - Inhaled Oxygen Concentration - - Weight 59 kg (130 lb) 07/06/2020 0853 EST Height 160 cm (5' 3) 07/06/2020 0853 EST Body Mass Index 23.03 07/06/2020 0853 EST documented in this encounter Functional Status [...] documented in this encounter Progress Notes * Guy Fay MA - 07/06/2020 0845 EST Blood drawn via right ac using a butterfly needle. Pt tolerated procedure well. Pressure and 2x2 applied, secured with paper tape. sst tube(s) sent to lab per order. Orders: reviewed Per yomaira clayton I was supervised by yomaira clayton who was present and immediately available in the office suite GUY FAY MA 07/06/2020 9:57 * Michelle Byers MD - 07/06/2020 0845 EST BASELINE US VISIT - FRESH IVF CYCLE Date: 07/06/2020 Patient Partner Name: Reanna Espinoza : 1985 35 y.o. female with unexplained infertility presents today for baseline IVF US prior to fresh IVF cycle #3. Risks/benefits/details of oocyte retrieval were discussed at length with the patient, and informed consent was obtained today. Baseline Scan Today (07/06/2020): 3.4 mm endometrium Quiescent ovaries AFC 22 Prior Ovarian Buchanan Testing: [facility] 6.93 (2018) AFC 33 Trial Transfer (07/06/20): Salcedo catheter 7 cm fundal length 5.5 cm transfer length No difficulty Past Medical History: Diagnosis Date ??? Retained products of conception after miscarriage 02/10/2019 No past surgical history on file. Current Outpatient Medications Medication ??? leuprolide (LUPRON) 1 mg/0.2 mL injection ??? norgestimate-ethinyl estradioL (ORTHO-CYCLEN, 28,) 0.25-35 mg-mcg per tablet No current facility-administered medications for this visit. No Known Allergies Patient Vitals for the past 24 hrs: BP Height Weight 07/06/20 0853 102/72 160 cm (63) 59 kg (130 lb) Exam: GEN: alert and oriented, cooperative, no distress, appears stated age PSYCH: Exhibits appropriate mood and judgement. HEENT: NC/AT CV: RRR PULM: CTAB EXT: No clubbing, cyanosis, or edema ASSESSMENT/PLAN CHECKLIST ?? Previously COVID counseled ?? Patient's COVID testing: negative; 2nd pre-retrieval test ordered ?? Sperm freeze for partner planned for next week ?? Partner desires to provide a fresh sample at the time of retrieval; understands the requirement for pre-procedure COVID testing MED PLAN ?? Lupron ?? GN / IVF ORDERS ?? All conventional IVF (per note 10/28/19) ?? Culture all to blastocyst ?? Transfer: per ASRM guidelines ?? Cryopreserve all surviving blasts not transferred VISIT DIAGNOSIS Encounter for assisted reproductive fertility cycle [Z31.83] 1. Encounter for assisted reproductive fertility cycle - ESTRADIOL, ADULTS; Future - PROGESTERONE; Future - ESTRADIOL, ADULTS - PROGESTERONE - INSEMINATION OF OOCYTES; Future - FOLLICLE PUNCTURE, RETRIEVAL OF OOCYTE; Future - CULTURE & FERTILIZATION OF OOCYTE,< 4 DAYS; Future - EXTENDED CULTURE OF OOCYTES/EMBRYOS, 4-7 DAYS; Future - CRYOPRESERVATION, EMBRYOS; Future - TRANSFER OF EMBRYO, INTRA-UTERINE; Future - ESTRADIOL, ADULTS; Standing - PROGESTERONE; Standing 2. Routine screening for STI (sexually transmitted infection) - CHLAMYDIA/N. GONORRHOEAE AMPLIFIED RNA Patient encounter supervised by attending BALBIR Dr. Clayton. Updated Dr. Lakeisha Torres. Michelle Byers MD Fellow, Reproductive Endocrinology and Infertility Attestation statement: I discussed the patient with the Fellow at the time of the patient's visit. I agree with the findings and plan of care. Baseline and labs clear to start GN ovarian stimulation per patient calendar. Seema Clayton MD documented in this encounter Miscellaneous Notes * Addendum Note - Seema Clayton MD - 07/06/2020 0845 ESTAddended by: SEEMA CLAYTON on: 07/11/2020 11:46 Modules accepted: Level of Service documented in this encounter Plan of Treatment Not on file documented as of this encounter Procedures Procedure Name Priority Date/Time Associated Diagnosis Comments CHLAMYDIA/N. GONORRHOEAE AMPLIFIED NUCLEIC ACID Routine 07/06/2020 9:42 EST Routine screening for STI (sexually transmitted infection) PROGESTERONE Routine 07/06/2020 9:42 EST Encounter for assisted reproductive fertility cycle ESTRADIOL, ADULTS Routine 07/06/2020 9:4 2 EST Encounter for assisted reproductive fertility cycle documented in this encounter Results * CHLAMYDIA/N. GONORRHOEAE AMPLIFIED RNA (07/06/2020 9:42 EST) Neisseria gonorrhoeae Result Negative Negative 07/08/2020 14:23 EST [facility] Chlamydia trachomatis Result Negative Negative 07/08/2020 14:23 EST [facility] Swab ENTIRE VAGINA / Unknown Swab / Unknown 07/06/2020 9:42 EST 07/06/2020 9:51 EST us Micah Phillip MD MICROBIOLOGY - GENERAL ORD ERABLES Final Result [facility] [address] [place] [address] * PROGESTERONE (07/06/2020 9:42 EST) Progesterone 0.3 See Table ng/mL 07/06/2020 11:15 EST [facility] Comment: Female Reference Ranges: [...] VENOUS BLOOD / Unknown Venipuncture / Unknown 07/06/2020 9:42 EST 07/06/2020 10:01 EST us Seema Clayton MD CHEMISTRY & BLOOD GAS ORD ERABLES Final Result [facility] [address] [place] [address] * ESTRADIOL, ADULTS (07/06/2020 9:42 EST) Estradiol 25 See Note pg/mL 07/06/2020 11:16 EST [facility] Comment: NOTE: FEMALE REFERENCE [...] VENOUS BLOOD / Unknown Venipuncture / Unknown 07/06/2020 9:42 EST 07/06/2020 10:01 EST us Seema Clayton MD CHEMISTRY & BLOOD GAS ORD ERABLES Final Result [facility] [address] [place] [address] documented in this encounter Visit Diagnoses Diagnosis Encounter for assisted reproductive fertility cycle- Primary Encounter for assisted reproductive fertility procedure cycle Routine screening for STI (sexually transmitted infection) Screening examination for venereal disease Infertility, female, primary Female infertility of unspecified origin documented in this encounter Care Teams Clip Baker Relationship Specialty Start Date End Date [facility] Internal Medicine, [place] [address] [place] [address] PCP - General 11/03/15 10/01/23 documented as of this encounter
--- OUTSIDE RECORDS SUMMARY | 2024-09-16 01:36 | XMS_ITS | Encounter Summary ---
Author Organization [facility] Address [address] [place] [address] Care Team Providers Care Nuclear Plant Equipment Operator Name Role Phone Internal Medicine, Primary Care Provi darrel Encounter Details Date Type Department Care Team (Late st Contact Info) Description 07/17/2020 Documentation Visit [facility] Reproductive Medicine & Infertility Center - [address] [address] Michelle Byers MD Social History [...] Refills Last Filled Start Date End Date cabergoline (DOSTINEX) 0.5 mg tablet Take 1 Tab by mouth daily. 8 Tab 07/19/2020 09/06/2020 documented in this encounter Plan of Treatment Not on file documented as of this encounter Visit Diagnoses Not on filedocumented in this encounter Care Teams Nuclear Plant Equipment Operator Relationship Specialty Start Date End Date [facility] Internal Medicine, [place] [address] [place] [address] PCP - General 11/03/15 10/01/23 documented as of this encounter
--- OUTSIDE RECORDS SUMMARY | 2024-09-16 01:36 | XMS_ITS | Encounter Summary ---
Author Organization [facility] Address [address] [place] [address] Care Team Providers Care Solution Designer Name Role Phone [facility] Internal Medicine, Primary Care Provi darrel Reason for Visit * Reason Onset Date Comments Results 07/13/2020 Encounter Details Date Type Department Care Team (Late st Contact Info) Description 07/13/2020 Telephone [facility] Reproductive Medicine & Infertility Center - [address] [address] Meliza Moise RN Results Social [...] Telephone Encounter - Meliza Moise RN - 07/13/2020 1435 EST Telephoned patient to review results of labs and continued medication plan. Left detailed message. Component Latest Ref Rng & Units 07/13/2020 Progesterone See Table ng/mL 0.7 Estradiol See Note pg/mL 967 Advised patient to decrease to GN 09/12, continue Lupron 5. Next step is E2 Saturday. Can be at [facility] when lab opens at 7 or at [facility] later in the morning. Discussed with Dr Phillip. Asked pt to call back to confirm receipt of message and understanding of plan. * Telephone Encounter - Meliza Moise RN - 07/13/2020 143 EST ----- Message from Micah Phillip MD sent at 07/13/2020 14:13 EST ----- Decrease dose from 10/10 to 09/12, E2 in 2 days (Saturday), probable scan either Sat or Sun. Discussed with MBP documented in this encounter Plan of Treatment Not on file documented as of this encounter Results * PROGESTERONE (07/15/2020 13:49 EST) [facility] Progesterone 1.0 See Table ng/mL 07/15/2020 15:03 EST [facility] Comment: Female Reference Ranges: PHYSIOLOGICAL [...] VENOUS BLOOD / Unknown Venipuncture / Unknown 07/15/2020 13:49 EST 07/15/2020 14:24 EST Micah Phillip MD CHEMISTRY & BLOOD GAS NIKOLAY VALENCIA Final Result [facility] [address] [place] [address] * ESTRADIOL, ADULTS (07/15/2020 13:49 EST) Estradiol 1,777 See Note pg/mL 07/15/2020 15:03 EST [facility] Comment: NOTE: FEMALE REFERENCE RANGES: [...] VENOUS BLOOD / Unknown Venipuncture / Unknown 07/15/2020 13:49 EST 07/15/2020 14:24 EST us Micah Phillip MD CHEMISTRY & BLOOD GAS NIKOLAY VALENCIA Final Result [facility] [address] [place] [address] documented in this encounter Visit Diagnoses Diagnosis In vitro fertilization- Primary Encounter for assisted reproductive fertility procedure cycle documented in this encounter Care Teams Solution Designer Relationship Specialty Start Date End Date [facility] Internal Medicine, [address] [place] [address] PCP - General 11/03/15 10/01/23 documented as of this encounter
--- OUTSIDE RECORDS SUMMARY | 2024-09-16 01:36 | XMS_ITS | Encounter Summary ---
Author Organization [facility] Address [address] [place] [address] Care Team Providers Care Counseling Director Name Role Phone [facility] Internal Medicine Primary Care Provi darrel Reason for Visit * Reason Onset Date Comments Coordination Of Care 05/17/2020 Encounter Details Date Type Department Care Team (Late st Contact Info) Description 05/17/2020 Telephone [facility] Reproductive Medicine & Infertility Center - [address] [address] Meliza Moise RN Coordination Of Care [...] Miscellaneous Notes * Telephone Encounter - Meliza Moise, MALIA - 05/17/2020 5474 EDT Call from Reanna to report CD#1 on Tuesday 05/15. Advised her that we would like her to start OCPs with next menses. She verbalized understanding, will call to confirm date but will start OCPs with next CD#1, around 06/11. Sent email to activate [employer], will send calendar through portal. 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 documented in this encounter Plan of Treatment Not on file documented as of this encounter Visit Diagnoses Diagnosis Routine screening for STI (sexually transmitted infection)- Primary Screening examination for venereal disease documented in this encounter Orders Lab Orders Without Results Count Last Ordered D ate First Ordered Date PROFILE IVF NON DONOR 1 05/17/2020 documented in this encounter Care Teams Counseling Director Relationship Specialty Start Date End Date [facility] Internal Medicine, [place] [address] [place] [address] PCP - General 11/03/15 10/01/23 documented as of this encounter
--- OUTSIDE RECORDS SUMMARY | 2024-09-16 01:36 | XMS_ITS | Encounter Summary ---
Author Organization [facility] Address [address] [place] [address] Care Team Providers Care Electronic Engraver Name Role Phone [facility] Internal Medicine Primary Care Provi darrel Reason for Visit * Reason Onset Date Comments Coordination Of Care 07/08/2020 Encounter Details Date Type Department Care Team (Late st Contact Info) Description 07/08/2020 Telephone [facility] Reproductive Medicine & Infertility Center - [facility] [address] [place] [address] Meliza Moise RN Coordination Of [...] Telephone Encounter - Meliza Moise RN - 07/08/2020 1550 EST Call back from Reanna, wanted to confirm that she will use 0.5mL of saline to reconstitute 150 units of menopur, and mix the Gonal F into the syringe with the menopur. [facility], and powerpoint was sent to pt via [employer]. She has no further questions at this time. * Telephone Encounter - Meliza Moise RN - 07/08/2020 1323 EST Call from Reanna with medication questions. Called back and LVM to call back, but that powerpoint would be sent via [employer]. documented in this encounter Plan of Treatment Not on file documented as of this encounter Visit Diagnoses Not on filedocumented in this encounter Care Teams Electronic Engraver Relationship Specialty Start Date End Date [facility] Internal Medicine, [place] [address] [place] [address] PCP - General 11/03/15 10/01/23 documented as of this encounter
--- OUTSIDE RECORDS SUMMARY | 2024-09-16 01:36 | XMS_ITS | Encounter Summary ---
Author Organization [facility] Address [address] [place] [address] Care Team Providers Care Cashier Host/Hostess Name Role Phone [facility] Internal Medicine, Primary Care Provi darrel Encounter Details Date Type Department Care Team (Late st Contact Info) Description 07/15/2020 13:45 EST Phlebotomy Only [facility] ED Center 2 Phlebotomy [address] [place], [place] [id number] Slitter Creaser Slotter Operator, Acc Phlebotomy In vitro fertilization Social History Tobacco Use Types Packs/Day Years [...] Name Priority Date/Time Associated Diagnosis Comments PROGESTERONE STAT 07/15/2020 13:49 EST In vitro fertilization ESTRADIOL, ADULTS STAT 07/15/2020 13: 49 EST In vitro fertilization documented in this encounter Results * PROGESTERONE (07/15/2020 13:49 EST) Progesterone 1.0 See Table ng/mL 07/15/2020 15:03 EST [facility] Comment: Female Reference Ranges: PHYSIOLOGICAL [...] & BLOOD GAS NIKOLAY VALENCIA Final Result Performing Organization Address [facility] de Phone Number [facility] [address] [place] [address] * ESTRADIOL, ADULTS (07/15/2020 13:49 EST) [facility] Signature Estradiol 1,777 See Note pg/mL 07/15/2020 15:03 EST [facility] Comment: NOTE: FEMALE REFERENCE RANGES: [...] & BLOOD GAS NIKOLAY VALENCIA Final Result Performing Organization Address [facility] Co de Phone Number [facility] [address] [place] [address] documented in this encounter Visit Diagnoses Diagnosis In vitro fertilization Encounter for assisted reproductive fertility procedure cycle documented in this encounter Care Teams Cashier Host/Hostess Relationship Specialty Start Date End Date [facility] Internal Medicine, Mp [address] [place], [place] [address] PCP - General 11/03/15 10/01/23 documented as of this encounter
--- OUTSIDE RECORDS SUMMARY | 2024-09-16 01:36 | XMS_ITS | Encounter Summary ---
Author Organization [facility] Address [address] [place] [address] Care Team Providers Care Sampling Expert Name Role Phone [facility] Internal Medicine, Primary Care Provi darrel Reason for Visit * Reason Comments Follow-up Encounter Details Date Type Department Care Team (Late st Contact Info) Description 10/17/2020 8:00 EST Procedure visit [facility] Reproductive Medicine & Infertility Center - [facility] [address] [place], [place] [id number] Sue Hyman MD [address] [facility], [facility] [address] [place] [address] Encounter for assisted reproductive fertility [...] Progress Notes * Michelle Byers MD - 10/17/2020 0800 EST BASELINE FET VISIT Date: 10/17/2020 ?? Patient Partner Name: Reanna Espinoza ??Tremaine Espinoza : 1985 ? ID: [id number] y.o. y.o. with unexplained inferility for FET cycle # 1 from fresh cycle #3. We discussed atlength the embryos that the patient had frozen and the patient decided to move forward with transfer of two embryos. Vitrified: six D5 embryos Straw #1: 4AA Straw #2: 4AB Straw #3: 3AA Straw #4: 4BB Straw #5: 2x cav. [place] director airport recommended transfer of 4AA and 4BB if two embryos are being transferred. Past Medical History: Diagnosis Date ??? Retained products of conception after miscarriage 02/10/2019 No past surgical history on file. OB History Para Term AB Living 1 0 0 0 1 0 SAB TAB Ectopic Multiple Live Births 1 0 0 0 0 # Outcome Date GA Lbr Tim/2nd Weight Sex Delivery Anes PTL Lv 1 SAB 12/2018 SAB GEN: alert and oriented, cooperative, no distress, appears stated age Psych: Exhibits appropriate mood and judgement. Ext: No clubbing, cyanosis, or edema Baseline Scan 10/17/2020: 2 mm endometrium Quiescent ovaries Component Latest Ref Rng & Units 10/17/2020 Progesterone See Table ng/mL 0.4 Estradiol See Note pg/mL <12 PLAN Estrogen protocol for FET Transfer: 2 embryos per discussion with Dr. Lakeisha Torres. Partner will sign consent on day of transfer as she states this is what she has done in the past. The patient was discussed with Dr. Lakeisha Torres and Dr. Hyman. Michelle Byers MD Fellow, Reproductive Endocrinology and Infertility Attestation statement: I discussed the patient with the Fellow at the time of the patient's visit. I agree with the findings and plan of care. Sue Hyman MD Reproductive Endocrinology and Infertility * Michelle Byers MD - 10/17/2020 0800 EST Blood drawn left median cubital vein using a butterfly needle. Pt tolerated procedure well. Pressure and 2x2 applied, secured with bandaid. 1 SST tube(s) sent to the lab per order. Michelle Byers MD Fellow, Reproductive Endocrinology and Infertility documented in this encounter Miscellaneous Notes * Addendum Note - Michelle Byers MD - 10/17/2020 0800 ESTAddended by: MICHELLE BYERS on: 11/06/2020 09:52 Modules accepted: Orders documented in this encounter Plan of Treatment Not on file documented as of this encounter Visit Diagnoses Diagnosis Encounter for assisted reproductive fertility procedure cycle- Primary documented in this encounter Care Teams Sampling Expert Relationship Specialty Start Date End Date [facility] Internal Medicine, [address] [place] [address] PCP - General 11/03/15 10/01/23 documented as of this encounter
--- OUTSIDE RECORDS SUMMARY | 2024-09-16 01:36 | XMS_ITS | Encounter Summary ---
Author Organization [facility] Address [address] [place] [address] Care Team Providers Care Business Development Intern Name Role Phone [facility] Internal Medicine, Primary Care Provi darrel Encounter Details Date Type Department Care Team (Latest Contact Info) Description 07/17/2020 10:30 EST Phlebotomy Only [facility] [address] [place] [address] Encounter for preoperative screening laboratory testing for COVID-19 virus Social History Tobacco Use Types Packs/Day Years [...] Procedure Name Priority Date/Time Associated Diagnosis Comments DO NOT ORDER STANDALONE - BROAD COVID TEST Today 07/17/2020 9:57 EST Encounter for preoperative screening laboratory testing for COVID-19 virus COVID-19 TESTING Routine 07/17/2020 9:57 EST Encounter for preoperative screening laboratory testing for COVID-19 virus documented in this encounter Results * DO NOT ORDER STANDALONE - BROAD COVID TEST (07/17/2020 9:57 EST) COVID-19 rt-PCR Result NEGATIVE Negative 07/19/2020 15:46 EST [facility] Comment: 2019-novel Coronavirus (2019-nCoV) not detected [...] in accordance with CLIA regulations, [employer] [place] (CAP) guidelines (Oct 29, 2019), and FDA guidance (Oct 10, 2019). This test is only for use under the Food and Drug Administration's Emergency Use Authorization. Swab ENTIRE NASOPHARYNX / Unknown Swab / Unknown 07/17/2020 9:57 EST 07/17/2020 9:57 EST Micah Phillip MD MICROBIOLOGY - GENERAL ORD ERABLES Final Result [facility] [place] * COVID-19 TESTING (07/17/2020 9:57 EST) COVID-19 rt-PCR Result NEGATIVE Negative 07/19/2020 15:46 EST [facility] Comment: 2019-novel Coronavirus (2019-nCoV) not detected [...] in accordance with CLIA regulations, [employer] [place] [employer] (CAP) guidelines (Oct 29, 2019), and FDA guidance (Oct 10, 2019). This test is only for use under the Food and Drug Administration's Emergency Use Authorization. Performing Lab [facility] 07/19/2020 15:46 EST [facility] Swab ENTIRE NASOPHARYNX / Unknown Swab / Unknown 07/17/2020 9:57 EST 07/17/2020 9:57 EST Micah Phillip MD MICROBIOLOGY - GENERAL ORD ERABLES Final Result [facility] [address] [place] [id number] [place] [address] LAB[facility]AT[facility] [place] [place] documented in this encounter Visit Diagnoses Diagnosis Encounter for preoperative screening laboratory testing for COVID-19 virus documented in this encounter Care Teams Business Development Intern Relationship Specialty Start Date End Date [facility] Internal Medicine, [place] [address] [place] [address] PCP - General 11/03/15 10/01/23 documented as of this encounter
--- OUTSIDE RECORDS SUMMARY | 2024-09-16 01:36 | XMS_ITS | Encounter Summary ---
Author Organization [facility] Address [address] [place] [address] Care Team Providers Care Commercial Sales Consultant Name Role Phone Internal Medicine, Primary Care Provi darrel Encounter Details Date Type Department Care Team (Late st Contact Info) Description 07/11/2020 Documentation Visit [facility] Reproductive Medicine & Infertility Center - [facility] [address] [place] [address] Micah Phillip MD [address] [place] [phone] Social History Tobacco Use Types Packs/Day Years [...] Progress Notes * Micah Phillip MD - 07/11/2020 7222 EST IVF Plan Note Patient's US, labs, and IVF plan reviewed with attending Dr. Thompson. Please contact the patient with the following plan: ??? Drop GN dose to 10/10 ??? USE tomorrow Electronically signed by: Micah Phillip MD, PGY7 Fellow Reproductive Endocrinology & Infertility [facility] 07/12/2020 / 14:53 documented in this encounter Plan of Treatment Not on file documented as of this encounter Visit Diagnoses Not on filedocumented in this encounter Care Teams Commercial Sales Consultant Relationship Specialty Start Date End Date [facility] Internal Medicine, [address] [place] [address] PCP - General 11/03/15 10/01/23 documented as of this encounter
--- OUTSIDE RECORDS SUMMARY | 2024-09-16 01:36 | XMS_ITS | Encounter Summary ---
Author Organization [facility] Address [address] [place] [address] Care Team Providers Care Equipment Sterilizer Name Role Phone [facility] Primary Care Provi darrel Encounter Details Date Type Department Care Team (Late st Contact Info) Description 07/20/2020 8:47 EST Anesthesia Event [facility] Reproductive Medicine & Infertility Center [facility] [address] [place], [place] [phone] Luigi Avila MD [facility] [address] [facility], [facility] [address] [place] [address] Anesthesia Record Procedure Summary Procedure Name Responsible Anesthesiologist Anesthesia Start Time Anesthesia Stop Time IVF PROCEDURE Luigi Avila MD [facility] 07/20/20 0847 07/20/20 0929 Events Date Time Event Comment 07/20/2020 0847 An Start The patient was re-evaluated immediately before moderate or deep sedation use, before anesthesia induction, or before the anesthesia procedure. 0849 An Start Data 0852 Anesthesia Ready 0920 an stop data 0929 Handoff to RN I completed my handoff to the receiving nurse during which we: 1. Identified the patient 2. Identified the responsible provider 3. Reviewed the pertinent medical history 4. Discussed the surgical course 5. Reviewed intra-op anesthesia management and issues during anesthesia 6. Set expectations for post-procedure period 7. Allowed opportunity for questions and acknowledgement of understanding. 09 An Stop Meds Name Total lidocaine 2% (PF) injection glass vial 6 0 mg propOFol (DIPRIVAN) injection 500 mg * Agents No agents on file. * Blood No blood administrations on file. Lines, Drains, and Airways Type Details Placement Removal Peripheral IV Anterior, Distal, Ri ght; Upper Arm; 10/11/23 07/20/20 0938 by 10/11/23 0000 by Sarai Aquino RN documented in this encounter Social History [...] OR Notes * Anesthesia Postprocedure Evaluation - Luigi Avila MD - 07/20/2020 0928 EST Patient: Reanna Espinoza Vital signs were reviewed with the recovery nurse. Complete vitals history is available in the [facility]. Last Pain Score - 0 Type of Anesthesia - MAC Anesthesia Post Evaluation Post-procedure vitals reviewed and are stable. Level of consciousness: alert and oriented Temperature status: normothermia Respiratory status: airway patent Cardiovascular status: acceptable Hydration status: adequate Nausea/Vomiting: none Pain management: adequate Post-Op Assessment: patient tolerated procedure well with no complications and patient satisfied with anesthesia care Patient participation: able to participate Disposition: outpatient/home Anesthesia Complications: No apparent anesthesia complications * Anesthesia Preprocedure Evaluation - Luigi Avila MD - 07/20/2020 0836 EST Anesthesia Preprocedure Evaluation Patient Medical History, including Anesthesia History reviewed. Chart and Nursing Notes reviewed, including NPO status and Medication History. Additional ROS/History Findings: No Known Allergies Review of Systems All other systems reviewed and are negative. Past Medical History: Diagnosis Date ??? Retained products of conception after miscarriage 02/10/2019 Relevant Problems No relevant active problems Physical Exam Airway Mallampati: II Cardiovascular - normal exam Rhythm: regular Rate: normal Dental Pulmonary - normal exam Abdominal Anesthesia Plan ASA 2 Anesthesia Type - MAC Anesthesia plan and risks discussed. Informed consent obtained from patient. PAT Note (Notes from 06/20/20 through 07/20/20) No notes of this type exist for this encounter. documented in this encounter Plan of Treatment Not on file documented as of this encounter Visit Diagnoses Not on filedocumented in this encounter Administered Medications Inactive Administered Medications - up to 3 most recent administrations Medication Order MAR Action Action Date Dose Rate Site lidocaine (PF) 20 mg/mL (2 %) injection PRN, Starting on Sat07/20/20 at 0853, Until Sat07/20/20 at 09, Routine, Anesthesia Intraprocedure Given 07/20/2020 8:53 EST 60 mg propOFol (DIPRIVAN) injection PRN, Starting on Sat07/20/20 at 0853, Until Sat07/20/20 at 09, Routine, Anesthesia Intraprocedure Given 07/20/2020 9:13 EST 100 mg Given 07/20/2020 9:05 EST 100 mg Given 07/20/2020 9:01 EST 100 mg documented in this encounter Care Teams Equipment Sterilizer Relationship Specialty Start Date End Date [facility] Internal Medicine, [place] [address] [place] [address] PCP - General 11/03/15 10/01/23 documented as of this encounter
--- OUTSIDE RECORDS SUMMARY | 2024-09-16 01:36 | XMS_ITS | Encounter Summary ---
Author Organization [facility] Address [address] [place] [address] Care Team Providers Care Retail Department Reset Name Role Phone [facility] Internal Medicine, Primary Care Provi darrel Unknown, Provider Primary Care Provider Unava ilable None, Provider Primary Care Provider Unavailabl e Encounter Details Date Type Department Care Team (Late st Contact Info) Description 07/11/2020 Lab Requisition [facility] Pathology & Laboratory Medicine - [address] [phone] Outr Resulting Lab, Provider Social History Tobacco [...] Date/Time Associated Diagnosis Comments ESTRADIOL, ADULTS Routine 07/11/2020 9:58 EST documented in this encounter Results * ESTRADIOL, ADULTS (07/11/2020 9:58 EST) Estradiol 306 See Note pg/mL 07/11/2020 16:44 EST [facility] Comment: NOTE: FEMALE [...] this drug. Blood VENOUS BLOOD / Unknown 07/11/2020 9:58 EST 07/11/2020 16:10 EST us Provider Outr Resulting Lab CHEMISTRY & BLOOD GA S ORDERABLES Final Result Performing Organization Address City/State/[facility] Co de Phone Number [facility] [address] [place] [address] documented in this encounter Visit Diagnoses Not on filedocumented in this encounter Care Teams Retail Department Reset Relationship Specialty Start Date End Date [facility] Internal Medicine, [address] [place], [place] [phone] PCP - General 11/03/15 10/01/23 Unknown, Provider, [place] [address] [place] [address] PCP - General 10/02/23 4 None, Provider PCP - General 05/09/24 documented as of this encounter
--- OUTSIDE RECORDS SUMMARY | 2024-09-16 01:36 | XMS_ITS | Encounter Summary ---
Author Organization [facility] Address [address] [place] [address] Care Team Providers Care Database Dba Name Role Phone [facility] Internal Medicine, Primary Care Provi darrel Reason for Visit * Reason Onset Date Comments Coordination Of Care 07/18/2020 Encounter Details Date Type Department Care Team (Late st Contact Info) Description 07/18/2020 Telephone [facility] Reproductive Medicine & Infertility Center - [address] [address] Lanette Pagan RN Coordination Of Care Social History Tobacco [...] Miscellaneous Notes * Telephone Encounter - Meliza Miose RN - 07/18/2020 1245 EST VM from [facility] requesting call back with discuss instructions. LVM for Reanna to check [facility] for specific instructions. * Telephone Encounter - Lanette Pagan RN - 07/18/2020 0900 EST VM to patient to review Egg Retrieval instructions. Pt to administer final dose of stim yesterday . Pt to administer final dose of lupron this morning. Give hCG injection at 2130 on tonight 07/18/20. Oocyte retrieval scheduled at 0830 on 07/18/20 Arrive to the AUTO ROLLER front end application developer no later than 0745 (45 minutes before procedure). Partner should remain abstinent from ejaculation starting today (48 hours prior to the time of collection on the morning of the scheduled procedure). Advised pt to be NPO (nothing to eat or drink) after midnight the night before procedure, 07/19/20. No use of perfumes, colognes, or scented soaps by patient or partner, as scents can be toxic to oocytes and embryos. We will provide a script for pain medication, if needed. Nurse will administer first IM progesterone injection at the time of retrieval. Must have a ride home. Will not be discharged without a ride home. Left detailed message and requested call back to confirm. Additionally, left message that her needs to be Covid tested, order has been placed and he will be receiving a call to schedule today. Procedural/Anesthesia scheduling for oocyte retrieval: Luigi Avila was notified via cortext of this scheduled procedure. 2. Procedure was scheduled in [place] with anesthesia resource requested, and appears on [employer] snapboard. documented in this encounter Plan of Treatment Not on file documented as of this encounter Visit Diagnoses Not on filedocumented in this encounter Care Teams Database Dba Relationship Specialty Start Date End Date [facility] Internal Medicine, [address] [place] [address] PCP - General 11/03/15 10/01/23 documented as of this encounter
--- OUTSIDE RECORDS SUMMARY | 2024-09-16 01:36 | XMS_ITS | Encounter Summary ---
Author Organization [facility] Address [address] [place] [address] Care Team Providers Care Applications Intern Name Role Phone [facility] Internal Medicine, Primary Care Provi darrel Reason for Referral * BIOCHEMISTRY TEACHER (Routine) - Specialty Report Received Specialty Diagnoses / Procedures Referred By Serene martinez Referred To Contact Diagnoses Encounter for assisted reproductive fertility cycle Procedures US SENIOR CLIMATE ADVISOR EXAM (BALBIR ONLY) Micah Phillip MD Phone: tel: fax: Referral ID Status Reason Start Date Expiration Date V isits Requested Visits Authorized [id number] Specialty Report Received 07/15/2020 1 1 Reason for Visit * BIOCHEMISTRY TEACHER (Routine) - Specialty Report Received Specialty Diagnoses / Procedures Referred By Serene martinez Referred To Contact Diagnoses Encounter for assisted reproductive fertility cycle Procedures US SENIOR CLIMATE ADVISOR EXAM (BALBIR ONLY) Micah Phlilip MD Phone: tel: fax: Referral ID Status Reason Start Date Expiration Date V isits Requested Visits Authorized [id number] Specialty Report Received 07/15/2020 1 1 Encounter Details Date Type Department Care Team (Latest Contact Info) Description 07/17/2020 8:54 EST - 07/17/2020 23:59 EST Hospital Encounter [facility] OBGYN Services - [facility] [address] [place] [address] Encounter for assisted reproductive fertility [...] Name Priority Date/Time Associated Diagnosis Comments US SENIOR CLIMATE ADVISOR EXAM (BALBIR ONLY) Routine 07/17/2020 9:07 EST Encounter for assisted reproductive fertility cycle documented in this encounter Results * US SENIOR CLIMATE ADVISOR EXAM (BALBIR ONLY) (07/17/2020 9:07 EST) Anatomical Region Laterality Modality Ultrasound 07/17/2020 9:08 EST Narrative 07/17/2020 10:16 EST Indication Med day 10 Lupron GN 09/12. Uterus ======= Uterus: ?Appears normal Uterus position: [...] fluid visualized. Impression USE (IVF Follicular) - 62186 1. Maturing folliculogenesis bilaterally. 2. Trilaminar endometrium. [...] fluid visualized. Impression USE (IVF Follicular) - 40764 1. Maturing folliculogenesis bilaterally. 2. Trilaminar endometrium. 3. No free fluid in pelvis. Follow-up E2/P today, plan per ART team. DATE OF SERVICE: 07/17/2020 Micah Phillip MD [facility] OB ORDERABLES Final Result documented in this encounter Visit Diagnoses Diagnosis Encounter for assisted reproductive fertility cycle Encounter for assisted reproductive fertility procedure cycle documented in this encounter Care Teams Applications Intern Relationship Specialty Start Date End Date [facility] Internal Medicine, [address] [place] [address] PCP - General 11/03/15 10/01/23 documented as of this encounter
--- OUTSIDE RECORDS SUMMARY | 2024-09-16 01:36 | XMS_ITS | Encounter Summary ---
Author Organization [facility] Address [address] [place] [address] Care Team Providers Care Director Toxicology Name Role Phone [facility] Internal Medicine, Primary Care Provi darrel Encounter Details Date Type Department Care Team (Late st Contact Info) Description 07/22/2020 Orders Only [facility] Reproductive Medicine & Infertility Center - [facility] [address] [place] [address] Lanette Pagan RN Encounter for test, result [...] in this encounter Progress Notes * Lanette Pagan, RN - 07/22/2020 1401 EST HCG order faxed to [facility] documented in this encounter Plan of Treatment Not on file documented as of this encounter Results * QUANT BETA HCG, (08/03/2020 8:42 EST) Beta HCG Quant, <5 <5 mIU/ml 08/03/2020 9:41 EST [facility] Comment: NOTE: : [...] & BLOOD GAS ORD ERABLES Final Result [facility] [address] [place] [address] documented in this encounter Visit Diagnoses Diagnosis Encounter for test, result unknown- Primary documented in this encounter Care Teams Director Toxicology Relationship Specialty Start Date End Date [facility] Internal Medicine, [address] [place] [address] PCP - General 11/03/15 10/01/23 documented as of this encounter
--- OUTSIDE RECORDS SUMMARY | 2024-09-16 01:36 | XMS_ITS | Encounter Summary ---
Author Organization [facility] Address [address] [place] [address] Care Team Providers Care Public Health Dietitian Name Role Phone [facility] Internal Medicine, Primary Care Provi darrel Reason for Visit * Reason Onset Date Comments Infertility 07/17/2020 Encounter Details Date Type Department Care Team (Late st Contact Info) Description 07/17/2020 Telephone [facility] Reproductive Medicine & Infertility Center - [address] [address] Michelle Byers MD Infertility Social History Tobacco Use Types Packs/Day Years [...] Telephone Encounter - Michelle Byers MD - 07/17/2020 6179 EST Call to pt to review oocyte retrieval instructions. Pt to administer final dose of stimulation meds (FSH/HMG) today. Pt to administer final dose of lupron tomorrow. RNs will notify patient of timing. Patient will have labs at [facility] tomorrow that should be resulted Saturday. Partner should remain abstinent from ejaculation 48 hours prior to the time of collection on the morning of the scheduled procedure. Advised pt to be NPO (nothing to eat or drink) after midnight the night before procedure. No use of perfumes, colognes, or scented soaps by patient or partner, as scents can be toxic to oocytes and embryos. We will provide a script for pain medication, if needed. Nurse will administer first IM progesterone injection at the time of retrieval. Must have a ride home. Will not be discharged without a ride home. Pt verbalized understanding of plan. Procedural/Anesthesia scheduling for oocyte retrieval: Routed to RN team for notification of anesthesia and scheduling - pt requesting afternoon retrieval. documented in this encounter Plan of Treatment Not on file documented as of this encounter Visit Diagnoses Diagnosis Encounter for assisted reproductive fertility procedure cycle- Primary documented in this encounter Care Teams Public Health Dietitian Relationship Specialty Start Date End Date [facility] Internal Medicine, [address] [place] [address] PCP - General 11/03/15 10/01/23 documented as of this encounter
--- OUTSIDE RECORDS SUMMARY | 2024-09-16 01:36 | XMS_ITS | Encounter Summary ---
Author Organization [facility] Address [address] [place] [address] Care Team Providers Care Cook Station Name Role Phone [facility] Internal Medicine, Primary Care Provi darrel Encounter Details Date Type Department Care Team (Late st Contact Info) Description 07/23/2020 8:52 EST - 07/23/2020 23:59 EST Hospital Encounter [facility] Reproductive Medicine & Infertility Center - [address] [phone] Sue Hyman MD [address] [facility], [facility] [address] [place] [address] Infertility, female, primary (Primary Dx) Discharge Disposition: Home or Self [...] this encounter Discharge Instructions * Discharge Instructions* Johanne Khan RN - 07/23/2020 9:23 EST 1. Avoid strenuous activity and heavy [...] your embryo transfer. 5. Due for HCG 08/03, 08/06, 08/08 documented in this encounter Medications at Time of Discharge acetaminophen-co deine (TYLENOL-CODEINE #3) 300-30 mg per tablet Take 1-2 Tabs by mouth every 6 hours as needed for Pain. Daily Max: 8 Tabs 8 Tab 07/20/2020 09/06/2020 cabergoline (DOSTINEX) 0.5 mg tablet Take 1 Tab by mouth daily. 8 Tab 07/19/2020 09/06/2020 leuprolide (LUPRON) 1 mg/0.2 mL injection Inject 20 units into the skin. Decrease to 10 units when directed. 2 Each 03/31/2019 09/06/2020 progesterone in oil 50 mg/mL injection Inject 1 mL into the muscle daily. 1 Vial 07/23/2020 10/04/2020 documented as of this encounter Discharge Disposition Disposition Code Departure Means Destination Home or Self Care documented in this encounter Procedure Notes * Sue Hyman MD - 07/23/2020 09 ESTProcedure(s): OH EMBRYO TRANSFER INTRAUTERINE Pre-Procedure Diagnose(s): Female infertility unexplained after evaluation Post-Procedure Diagnose(s): Female infertility unexplained after evaluation Time out performed prior to start of procedure. ? Endometrial lining measured 11 mm; good visualization. ?? Sterile speculum inserted, cervix cleaned with sterile culture media. Endocervix cleaned of cervical mucus with small cotton swab. No bleeding occurred. Under ultrasound guidance, the Salcedo embryo transfer catheter was passed without difficulty in one attempt into the endocervical canal to the level of the internal cervical os. The lab was then notified to load the embryos into the inner catheter: embryos were 8A, 8B+. The stylette guide was then removed from the outer sheath, and the inner catheter was introduced to the upper third of the cavity. The embryos were then transferred into the uterine cavity. The catheter was then removed and returned to the lab. There was no blood or mucus on the catheter, and no embryos were retained. No uterine cramping occurred. The speculum was then removed. The patient did not require drainage of her bladder. Transfer performed by Dr. Hyman, assisted by Johanne Khan RN. ?? First BhCG to be drawn on 08/03/20 Sue Hyman MD Reproductive Endocrinology and Infertility documented in this encounter Miscellaneous Notes * Addendum Note - Sue Hyman MD - 07/23/2020929 ESTEncounter addended by: Sue Hyman MD on: 07/23/2020 10:10 Actions taken: Clinical Note Signed, Visit diagnoses modified, Charge Capture section accepted * Addendum Note - Miya Leone - 07/23/2020 0930 Jace addended by: Miya Leone on: 07/27/2020 15:23 Actions taken: Charge Capture section accepted documented [...] oil injection 100 mg 100 mg, intramuscular, NOW X1, 1 dose, On 07/23/20 at 0945, Routine Given 07/23/2020 9:23 EST 100 mg Left Glu teus Medius/Ventrogluteal documented in this encounter Care Teams Cook Station Relationship Specialty Start Date End Date [facility] Internal [facility], [address] [facility] [place] [address] PCP - General 11/03/15 10/01/23 documented as of this encounter
--- OUTSIDE RECORDS SUMMARY | 2024-09-16 01:36 | XMS_ITS | Encounter Summary ---
Author Organization [facility] Address [address] [place] [address] Care Team Providers Care Environmental Compliance Manager Name Role Phone [facility] Internal Medicine, Primary Care Provi darrel Reason for Visit * Reason Comments Infertility Encounter Details Date Type Department Care Team (Late st Contact Info) Description 07/17/2020 9:00 EST Procedure visit [facility] Reproductive Medicine & Infertility Center - [facility] [address] [place], [place] [phone] Meliza Sena MD [address] [facility], [address] [place] [address] Encounter for assisted reproductive fertility [...] Progress Notes * Michelle Byers MD - 07/17/2020899 EST Patient seen 07/17/2020 for IVF USE OM#10. See ultrasound report and USE flowsheet for full details. Patient discussed with attending Dr. Sena and Dr. Lakeisha Torres. Michelle Byers MD, PGY5 BALBIR Fellow 07/17/2020 / 9:02 * Guy Fay MA - 07/17/2020899 EST Blood drawn via right ac using a butterfly needle. Pt tolerated procedure well. Pressure and 2x2 applied, secured with paper tape. sst tube(s) sent to lab per order. Orders: estradiol and prog. Per jerome sena I was supervised by jerome sena who was present and immediately available in the office suite GUY AFY MA 07/17/2020 9:13 * Meliza Sena MD - 07/17/2020899 EST Attestation statement: I discussed the patient with the resident/fellow at the time of the visit. Iagree with the findings and the plan of care documented in the resident's/fellow's note. documented in this encounter Plan of Treatment Not on file documented as of this encounter Procedures Procedure Name Priority Date/Time Associated Diagnosis Comments PROGESTERONE Routine 07/17/2020 9:03 EST Encounter for assisted reproductive fertility cycle ESTRADIOL, ADULTS Routine 07/17/2020 9:0 3 EST Encounter for assisted reproductive fertility cycle documented in this encounter Results * PROGESTERONE (07/17/2020 9:03 EST) Progesterone 1.7 See Table ng/mL 07/17/2020 10:48 EST [facility] Comment: Female Reference Ranges: [...] VENOUS BLOOD / Unknown Venipuncture / Unknown 07/17/2020 9:03 EST 07/17/2020 9:58 EST us Maryan Torres MD CHEMISTRY & BLO OD GAS ORDERABLES Final Result Performing Organization Address [facility] Co de Phone Number [facility] [address] [place] [address] * ESTRADIOL, ADULTS (07/17/2020 9:03 EST) Estradiol 3,687 See Note pg/mL 07/17/2020 11:17 EST [facility] Comment: NOTE: FEMALE REFERENCE [...] VENOUS BLOOD / Unknown Venipuncture / Unknown 07/17/2020 9:03 EST 07/17/2020 9:58 EST us Maryan Torres MD CHEMISTRY & BLO OD GAS ORDERABLES Final Result Performing Organization Address [facility] Co de Phone Number [facility] [address] [place] [address] documented in this encounter Visit Diagnoses Diagnosis Encounter for assisted reproductive fertility cycle- Primary Encounter for assisted reproductive fertility procedure cycle documented in this encounter Care Teams Environmental Compliance Manager Relationship Specialty Start Date End Date [facility] Internal Medicine, [address] [place] [address] PCP - General 11/03/15 10/01/23 documented as of this encounter
--- OUTSIDE RECORDS SUMMARY | 2024-09-16 01:36 | XMS_ITS | Encounter Summary ---
Author Organization [facility] Address [address] [place] [address] Care Team Providers Care Au Pair Name Role Phone [facility] Internal Medicine, Primary Care Provi darrel Reason for Visit * Reason Onset Date Comments Coordination Of Care 10/17/2020 Encounter Details Date Type Department Care Team (Late st Contact Info) Description 10/17/2020 Telephone [facility] Reproductive Medicine & Infertility Center - [facility] [address] [place] [address] Lanette Pagan RN Coordination Of Care [...] Telephone Encounter - Lanette Pagan RN - 10/17/2020 1058 EST Images from the original note were not included. Telephoned patient to review results of baseline labs and ultrasound, and to confirm medication plan Labs and U/S clear to start FET cycle Advised patient to begin estrace tomorrow 10/18 as per calendar and decrease lupron to 10 units. Nextstep is E2 on 10/24. Discussed with Dr Byers. Asked pt to call back to confirm receipt of message and understanding of plan. * Telephone Encounter - Lanette Pagan RN - 10/17/2020 1057 EST ----- Message from Michelle Byers MD sent at 10/17/2020 10:02 EST ----- Clear baseline for FET documented in this encounter Plan of Treatment Not on file documented as of this encounter Results * ESTRADIOL, ADULTS (10/24/2020 8:48 EDT) [facility] Signature Estradiol 251 See Note pg/mL 10/24/2020 10:22 EDT [facility] Comment: NOTE: FEMALE [...] & BLO OD GAS ORDERABLES Final Result [facility] [address] [place] [address] documented in this encounter Visit Diagnoses Diagnosis Encounter for assisted reproductive fertility cycle- Primary Encounter for assisted reproductive fertility procedure cycle documented in this encounter Care Teams Au Pair Relationship Specialty Start Date End Date [facility] Internal Medicine, [address] [place] [address] PCP - General 11/03/15 10/01/23 documented as of this encounter
--- OUTSIDE RECORDS SUMMARY | 2024-09-16 01:36 | XMS_ITS | Encounter Summary ---
Author Organization [facility] Address [address] [place] [address] Care Team Providers Care Barker Operator Name Role Phone Internal Medicine, Primary Care Provi darrel Encounter Details Date Type Department Care Team (Late st Contact Info) Description 07/19/2020 Orders Only [facility] Reproductive Medicine & Infertility Center - [address] [address] Micah Salazar MD [address] [place] [place] [phone] Encounter for assisted reproductive fertility procedure cycle [...] encounter Miscellaneous Notes * Addendum Note - Micah Salazar MD - 07/19/2020 1628 ESTAddended by: MICAH SALAZAR on: 07/20/2020 08:37 Modules accepted: Orders documented in this encounter Plan of Treatment Not on file documented as of this encounter Visit Diagnoses Diagnosis Encounter for assisted reproductive fertility procedure cycle- Primary documented in this encounter Care Teams Barker Operator Relationship Specialty Start Date End Date [facility] Internal Medicine, [address] [place] [address] PCP - General 11/03/15 10/01/23 documented as of this encounter
--- OUTSIDE RECORDS SUMMARY | 2024-09-16 01:37 | XMS_ITS | Encounter Summary ---
Author Organization [facility] Address [address] [place] [address] Care Team Providers Care Customer Relationship Specialist Name Role Phone [facility] Internal Medicine, Primary Care Provi darrel Encounter Details Date Type Department Care Team (Late st Contact Info) Description 04/18/2019 Orders Only [facility] Reproductive Medicine & Infertility Center [facility] [address] [facility] [address] [place] [address] Maryan Jameson MD [address] [facility], [facility] [address] [place] [address] Social History Tobacco Use Types Packs/Day Years Used Date Smoking Tobacco: Never Smokeless Tobacco: Never Alcohol Use Standard Drinks/Week Comments Yes 3 (1 standard drink = 0.6 oz pur e alcohol) Comments No Sex and Gender Information Value [...] on filedocumented in this encounter Care Teams Customer Relationship Specialist Relationship Specialty Start Date End Date [facility] Internal Medicine, [place] [place] [address] PCP - General 11/03/15 10/01/23 documented as of this encounter
--- OUTSIDE RECORDS SUMMARY | 2024-09-16 01:37 | XMS_ITS | Encounter Summary ---
Author Organization [facility] Address [address] [place] [address] Care Team Providers Care Active Directory Architect Name Role Phone [facility] Internal Medicine, Primary Care Provi darrel Encounter Details Date Type Department Care Team (Late st Contact Info) Description 04/18/2019 Phlebotomy Only [facility] [place] [address] [place] [address] 98 Sql Consultant, Outpatient resulting from assisted reproductive technology in first trimester; Encounter for assisted reproductive fertility cycle Social [...] Date/Time Associated Diagnosis Comments ESTRADIOL, ADULTS Routine 04/18/2019 7:4 9 EDT Encounter for assisted reproductive fertility cycle documented in this encounter Results * ESTRADIOL, ADULTS (04/18/2019 7:49 EDT) Estradiol 128 pg/ml 04/18/2019 9:00 EDT [facility] Comment: By day in cycle relative to LH peak: Follicular Phase (-12 to -4 days): ??20-144 Midcycle (-3 to +2 days): ? 64-357 Luteal Phase (+4 to +12 days): ??56-214 Postmenopausal: ??0 - 32 Cross reactivity with fulvestrant could lead to falsely elevated estradiol results in patients treated with this drug. Blood specimen (specimen) BLOOD SPECIMEN / Unknown 04/18/2019 7:49 EDT 04/18/2019 8:07 EDT us Sue Hyman MD CHEMISTRY & BLOOD GAS ORD ERABLES Final Result [facility] [address] [place] [address] documented in this encounter Visit Diagnoses Diagnosis resulting from assisted reproductive technology in first trimester Encounter for assisted reproductive fertility cycle Encounter for assisted reproductive fertility procedure cycle documented in this encounter Care Teams Active Directory Architect Relationship Specialty Start Date End Date [facility] Medicine, [address] [place] [address] PCP - General 11/03/15 10/01/23 documented as of this encounter
--- OUTSIDE RECORDS SUMMARY | 2024-09-16 01:37 | XMS_ITS | Encounter Summary ---
Author Organization [facility] Address [address] [place] [address] Care Team Providers Care Morning Caregiver Name Role Phone [facility] Internal Medicine, Primary Care Provi darrel Encounter Details Date Type Department Care Team (Late st Contact Info) Description 04/10/[address] [facility] Reproductive Medicine & Infertility Center - [address] [phone] Sue Hyman MD [address] [place] [address], [address] [place] [address] Social History Tobacco Use Types [...] Procedure Name Priority Date/Time Associated Diagnosis Comments LANE MARKER INSTALLER US BASELINE INVITRO 04/10/2019 9:21 EDT documented in this encounter Results * LANE MARKER INSTALLER US BASELINE INVITRO (04/10/2019 9:21 EDT) Anatomical Region Laterality Modality Other 04/10/2019 9:21 EDT 04/10/2019 12:25 EDT Narrative 04/10/2019 12:25 EDT Indication 33 yo Baseline FET #1. Uterus ======= Uterus: ?Appears normal Uterus position: ?? Anteverted Myometrium: ?Fibroid Endometrium: ?? Thin endometrium Cervix details: ?Normal appearance Endometrial thickness, total ?? 2.9 mm Right Ovary Rt ovary: ??Visualized, normal appearance Left Ovary Lt ovary: ??Visualized, normal appearance Cul de Sac Appears normal. No free fluid visualized. Impression Limited Transvaginal Ultrasound, Baseline -70790 Anteverted uterus with small stable intramural fibroid, thin endometrium. Quiescent ovaries bilaterally. Follow-up E2/P4 today. Plan per ART team . Comment ========= Ultrasound findings discussed w/patient. DATE OF SERVICE: 04/10/2019 Procedure Note Sue Hyman MD - 04/10/2019 Indication 33 yo Baseline FET #1. Uterus ======= Uterus: Appears normal Uterus position: Anteverted Myometrium: Fibroid Endometrium: Thin endometrium Cervix details: Normal appearance Endometrial thickness, total 2.9 mm Right Ovary Rt ovary: Visualized, normal appearance Left Ovary Lt ovary: Visualized, normal appearance Cul de Sac Appears normal. No free fluid visualized. Impression Limited Transvaginal Ultrasound, Baseline -48731 Anteverted uterus with small stable intramural fibroid, thin endometrium. Quiescent ovaries bilaterally. Follow-up E2/P4 today. Plan per ART team . Comment ========= Ultrasound findings discussed w/patient. DATE OF SERVICE: 04/10/2019 us Sue Hyman MD IMG US LANE MARKER INSTALLER ORDERABLES Fin al Result documented in this encounter Visit Diagnoses Not on filedocumented in this encounter Care Teams Morning Caregiver Relationship Specialty Start Date End Date [facility] Internal Medicine, [address] [facility] [place] [address] PCP - General 11/03/15 10/01/23 documented as of this encounter
--- OUTSIDE RECORDS SUMMARY | 2024-09-16 01:37 | XMS_ITS | Encounter Summary ---
Author Organization [facility] Address [address] [place] [address] Care Team Providers Care Director Of Residence Life Name Role Phone [facility] Internal Medicine, Primary Care Provi darrel Encounter Details Date Type Department Care Team (Late st Contact Info) Description 01/07/2019 Phlebotomy Only [facility] [address] [place] [address] Printing Machine Operator Tape Rules, Outpatient resulting from assisted reproductive technology in [...] Associated Diagnosis Comments QUANT BETA HCG, Routine 01/07/2019 9:01 EDT resulting from assisted reproductive technology in first trimester documented in this encounter Results * (ABNORMAL) QUANT BETA HCG, (01/07/2019 9:01 EDT) Quant Beta HCG, Preg 278(H) <5 mIU/ml 01/07/2019 10:50 EDT [facility] Comment: Reference Range: Negative = <5 Indeterminate = 5-25 recommend repeat in 48 hours. Positive = >25 The results of this assay can be falsely lowered due to the consumption of Biotin. Blood specimen (specimen) BLOOD SPECIMEN / Unknown 01/07/2019 9:01 EDT 01/07/2019 10:03 EDT us Maryan Torres MD CHEMISTRY & BLO OD GAS ORDERABLES Final Result [facility] [address] [place] [address] documented in this encounter Visit Diagnoses Diagnosis resulting from assisted reproductive technology in first trimester- Primary documented in this encounter Care Teams Director Of Residence Life Relationship Specialty Start Date End Date [facility] Internal Medicine, [address] [place], [place] [id number] PCP - General 11/03/15 10/01/23 documented as of this encounter
--- OUTSIDE RECORDS SUMMARY | 2024-09-16 01:37 | XMS_ITS | Encounter Summary ---
Author Organization [facility] Address [address] [place] [address] Care Team Providers Care Ip Network Architect Name Role Phone Internal Medicine, Primary Care Provi darrel Reason for Visit * Reason Comments Vaginal Bleeding Encounter Details Date Type Department Care Team (Late st Contact Info) Description 02/10/2019 8:45 EDT Office Visit [facility] Reproductive Medicine & Infertility Center [facility] [address] [place], [place] [phone] Maryan Jameson MD [address] [facility], [facility] [address] [place] [address] Pelvic pain (Primary Dx) Social History Tobacco Use Types [...] in this encounter Progress Notes * Maryan Thompson MD, MD - 02/10/2019 0845 EDT Patient uncomfortable large amount of clot in the uterus. Patient scheduled to see Dr. Caraballo. documented in this encounter Plan of Treatment Not on file documented as of this encounter Visit Diagnoses Diagnosis Pelvic pain- Primary documented in this encounter Care Teams Ip Network Architect Relationship Specialty Start Date End Date [facility] Internal Medicine, [address] [facility] [place] [address] PCP - General 11/03/15 10/01/23 documented as of this encounter
--- OUTSIDE RECORDS SUMMARY | 2024-09-16 01:37 | XMS_ITS | Encounter Summary ---
Author Organization [facility] Address [address] [place] [address] Care Team Providers Care Tourist Information Officer Name Role Phone Internal Medicine, Primary Care Provi darrel Reason for Visit * Reason Comments Infertility Encounter Details Date Type Department Care Team (Late st Contact Info) Description 03/24/2019 8:30 EDT Office Visit [facility] - [address] [phone] Quoc Jameson MD 111 [facility], [facility] [address] [place] [address] Encounter for fertility testing (Primary Dx); Infertility, female, primary Social History Tobacco Use [...] Refills Last Filled Start Date End Date norgestimate-ethiny l estradiol (ORTHO-CYCLEN) 0.25-35 mg-mcg per tablet Take 1 Tab by mouth daily. 28 Tab 03/24/2019 04/10/2019 documented in this encounter Progress Notes * Vonnie Vega - 03/24/2019 0830 EDT Patient seen for saline ultrasound this morning. Currently CD#7. See ultrasound report for findings: uterine cavity normal. Plan: Start OCPs tonight for planned FET in April. Will have RNs contact patient with calendar Patient planning transfer of 2 blasts after discussion with Dr. Verito Torres, consents not yetsigned, she understands partner will need to be present for baseline to sign consents. Patient seen with Dr. Yenni Martinez MD Reproductive Endocrinology and Infertility Fellow Attestation statement: I discussed the patient with the Fellow at the time of the patient's visit. I agree with the findings and plan of care. Seema Barroso MD documented in this encounter Miscellaneous Notes * Addendum Note - Seema Barroso MD - 03/24/2019829 EDTAddended by: SEEMA BARROSO on: 03/24/2019 10:02 Modules accepted: Orders * Addendum Note - Quoc Guerrero - 03/24/2019 0830 EDTAddended by: QUOC GUERRERO on: 03/27/2019 21:31 Modules accepted: Level of Service documented in this encounter Plan of Treatment Not on file documented as of this encounter Visit Diagnoses Diagnosis Encounter for fertility testing- Primary Fertility testing Infertility, female, primary Female infertility of unspecified origin documented in this encounter Discontinued Medications Medication Sig Discontinue Reason Start Date End Da te progesterone in oil 50 mg/mL injection Inject 1 mL into the muscle daily. Therapy completed 01/01/2019 03/24/2019 progesterone in oil 50 mg/mL injection Inject 1 mL into the muscle daily. Therapy completed 11/06/2018 03/24/2019 miSOPROStol (CYTOTEC) 200 mcg tablet Insert 4 tabs high into the vagina. Repeat in 24 hours if no miscarriage occurs and MD approves Therapy completed 02/05/2019 03/24/2019 documented as of this encounter Care Teams Tourist Information Officer Relationship Specialty Start Date End Date [facility] Internal Medicine, [place] [address] [place] [address] PCP - General 11/03/15 10/01/23 documented as of this encounter
--- OUTSIDE RECORDS SUMMARY | 2024-09-16 01:37 | XMS_ITS | Encounter Summary ---
Author Organization [facility] Address [address] [place] [address] Care Team Providers Care Frickertron Checker Name Role Phone [facility] Internal Medicine, Primary Care Provi darrel Reason for Visit * Reason Onset Date Comments Labs Only 01/09/2019 Encounter Details Date Type Department Care Team (Late st Contact Info) Description 01/09/2019 Telephone [facility] - [address] [address] Lanette Pagan, RN Labs Only Social History Tobacco Use [...] Telephone Encounter - Lanette Pagan, RN - 01/09/2019 9474 EDT PC to Reanna to review HCG results from today. Advised of appropriate rise. Reanna denies any pain or vaginal bleeding. Has enough progesterone in oil at this time and voicedunderstanding to continue these injections until 10 weeks. Next step is ultrasound on 01/23 @ 0840. The patient was discussed with Dr Hyman documented in this encounter Plan of Treatment Not on file documented as of this encounter Visit Diagnoses Not on filedocumented in this encounter Care Teams Frickertron Checker Relationship Specialty Start Date End Date [facility] Internal Medicine, [place] [address] [place], [place] [address] PCP - General 11/03/15 10/01/23 documented as of this encounter
--- OUTSIDE RECORDS SUMMARY | 2024-09-16 01:37 | XMS_ITS | Encounter Summary ---
Author Organization [facility] Address [address] [place] [address] Care Team Providers Care Customer Sales Specialist Name Role Phone Internal Medicine, Primary Care Provi darrel Encounter Details Date Type Department Care Team (Late st Contact Info) Description 03/24/2019 Results Only Imaging [facility]roductive Medicine & Infertility Center [facility] [address] [facility] [place] [address] Maryan Jameson MD [address] [facility], [address] [place] [address] Social History Tobacco Use Types [...] Procedure Name Priority Date/Time Associated Diagnosis Comments DEVELOPMENT PROFESSIONAL US HYSTEROSONOGRAPHY 019 9:43 EDT documented in this encounter Results * DEVELOPMENT PROFESSIONAL US HYSTEROSONOGRAPHY (03/24/2019 9:43 EDT) Anatomical Region Laterality Modality Other 03/24/2019 9:43 EDT 03/24/2019 9:50 EDT Narrative 03/24/2019 9:50 EDT Indication Uterine cavity eval prior to FET, s/p PAUL for missed AB. Assessment LMP on 03/18/2019. Day of cycle: 7. Cycle: regular cycle. Uterus ======= Uterus: ?Appears normal Uterus position: ?? Anteverted Myometrium: ?Fibroid Endometrium: ?? Trilaminar endometrium, minimal blood products within the uterine cavity Cervix details: ?Normal appearance Endometrial thickness, total ?? 4.5 mm Fibroids: ??Fibroids identified Findings: ??Intramural. Anterior/ left D1 13.1 mm D2 10.6 mm D3 12.3 mm Mean ?? 12.0 mm Vol ?0.885 cm cubed Procedure SIS procedure: risks,benefits and procedure reviewed with the patient. Consent signed. Speculum exam,cervix washed X3 with betadine. Catheter placed and saline instilled under US observation. Patient tolerated procedure. Sonohysterogram shows normal cavity with no epithelial or intracavitary lesions. Right Ovary Rt ovary: ??Visualized, normal appearance Left Ovary Lt ovary: ??Visualized, normal appearance Cul de Sac Appears normal. No free fluid visualized. Impression Transvaginal [id number] Normal anteverted uterus, 1.3 cm intramural fibroid, trilaminar endometrium. SHG shows normal uterine cavity. Normal ovaries. Follow-up plan per IVF team; FET in April. Comment ========= Ultrasound findings discussed w/patient. DATE OF SERVICE: 03/24/2019 Procedure Note Sue Hyman MD - 03/24/2019 Indication Uterine cavity eval prior to FET, s/p PAUL for missed AB. Assessment LMP on 03/18/2019. Day of cycle: 7. Cycle: regular cycle. Uterus ======= Uterus: Appears normal Uterus position: Anteverted Myometrium: Fibroid Endometrium: Trilaminar endometrium, minimal blood products within the uterine cavity Cervix details: Normal appearance Endometrial thickness, total 4.5 mm Fibroids: Fibroids identified Findings: Intramural. Anterior/ left D1 13.1 mm D2 10.6 mm D3 12.3 mm Mean 12.0 mm Vol 0.885 cm cubed Procedure SIS procedure: risks,benefits and procedure reviewed with the patient. Consent signed. Speculum exam,cervix washed X3 with betadine. Catheter placed and saline instilled under US observation. Patient tolerated procedure. Sonohysterogram shows normal cavity with no epithelial or intracavitary lesions. Right Ovary Rt ovary: Visualized, normal appearance Left Ovary Lt ovary: Visualized, normal appearance Cul de Sac Appears normal. No free fluid visualized. Impression Transvaginal [id number] Normal anteverted uterus, 1.3 cm intramural fibroid, trilaminar endometrium. SHG shows normal uterine cavity. Normal ovaries. Follow-up plan per IVF team; FET in April. Comment ========= Ultrasound findings discussed w/patient. DATE OF SERVICE: 03/24/2019 us Maryan Torres MD IMG US DEVELOPMENT PROFESSIONAL NIKOLAY VALENCIA Final Result documented in this encounter Visit Diagnoses Not on filedocumented in this encounter Care Teams Customer Sales Specialist Relationship Specialty Start Date End Date [facility] Internal Medicine, [address] [place] [address] PCP - General 11/03/15 10/01/23 documented as of this encounter
--- OUTSIDE RECORDS SUMMARY | 2024-09-16 01:37 | XMS_ITS | Encounter Summary ---
Author Organization [facility] Address [address] [place] [address] Care Team Providers Care Drying Can Worker Name Role Phone Internal Medicine, Primary Care Provi darrel Encounter Details Date Type Department Care Team (Late st Contact Info) Description 02/10/2019 Results Only Imaging [facility] Reproductive Medicine & Infertility Center [facility] [address] [facility] [place] [address] Maryan Jameson MD [address] [facility], [address] [place] [address] Social History Tobacco Use Types [...] Procedure Name Priority Date/Time Associated Diagnosis Comments FINANCING ANALYST US PELVIS TRANSVAGINAL 02/10/2019 9:22 EDT documented in this encounter Results * FINANCING ANALYST US PELVIS TRANSVAGINAL (02/10/2019 9:22 EDT) Anatomical Region Laterality Modality Other 02/10/2019 9:22 EDT 02/10/2019 9:55 EDT Narrative 02/10/2019 9:55 EDT Indication 33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 Uterus ======= Uterus: ?Visualized Uterus position: ?? Anteverted Uterine malformations: None Myometrium: ?Appears normal Endometrium: ?? large amount of blood clot within the endometrium Uterus long ?9.7 cm Uterus ap ??4.6 cm Uterus tr ??6.7 cm Endometrial thickness, total ?? 26.5 mm Fibroids: ??No fibroids identified Right Ovary Rt ovary: ??Visualized, normal appearance Outline: ?? Smooth Rt ovary morphology: ?? Normal Rt ovarian cyst(s): ?No cysts identified Rt ovarian follicle(s): ?No follicles identified Rt ovary other findings: ?? s/p controlled ovarian hyperstimulation with egg retrieval Left Ovary Lt ovary: ??Visualized, normal appearance Outline: ?? Smooth Lt ovary morphology: ?? normal Lt ovarian cyst(s): ?No cysts identified Lt ovarian follicle(s): ?No follicles identified Lt ovary other findings: ?? s/p controlled ovarian hyperstimulation with egg retrieval Cul de Sac Appears normal. No free fluid visualized. Impression Transvaginal [place]vic [id number] Anteverted uterus with large amount of blood clot within the endometrium. Bilateral ovaries within normal limits s/p controlled ovarian hyperstimulation with egg retrieval. Follow-up Patient scheduled for manual uterine aspiration . Comment ========= Ultrasound findings discussed w/patient. 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 Uterus ======= Uterus: Visualized Uterus position: Anteverted Uterine malformations: None Myometrium: Appears normal Endometrium: large amount of blood clot within the endometrium Uterus long 9.7 cm Uterus ap 4.6 cm Uterus tr 6.7 cm Endometrial thickness, total 26.5 mm Fibroids: No fibroids identified Right Ovary Rt ovary: Visualized, normal appearance Outline: Smooth Rt ovary morphology: Normal Rt ovarian cyst(s): No cysts identified Rt ovarian follicle(s): No follicles identified Rt ovary other findings: s/p controlled ovarian hyperstimulation with egg retrieval Left Ovary Lt ovary: Visualized, normal appearance Outline: Smooth Lt ovary morphology: normal Lt ovarian cyst(s): No cysts identified Lt ovarian follicle(s): No follicles identified Lt ovary other findings: s/p controlled ovarian hyperstimulation with egg retrieval Cul de Sac Appears normal. No free fluid visualized. Impression Transvaginal Pelvic [id number] Anteverted uterus with large amount of blood clot within the endometrium. Bilateral ovaries within normal limits s/p controlled ovarian hyperstimulation with egg retrieval. Follow-up Patient scheduled for manual uterine aspiration . Comment ========= Ultrasound findings discussed w/patient. DATE OF SERVICE: 02/10/2019 Result Farrukh Torres MD IMG US FINANCING ANALYST NIKOLAY VALENCIA Final Result documented in this encounter Visit Diagnoses Not on filedocumented in this encounter Care Teams Drying Can Worker Relationship Specialty Start Date End Date [facility] Internal Medicine, [place] [address] [place] [address] PCP - General 11/03/15 10/01/23 documented as of this encounter
--- OUTSIDE RECORDS SUMMARY | 2024-09-16 01:37 | XMS_ITS | Encounter Summary ---
Author Organization [facility] Address [address] [place] [address] Care Team Providers Care Silviculture Forester Name Role Phone [employer] [facility] Internal Medicine, Primary Care Provi darrel Reason for Visit * Reason Onset Date Comments Coordination Of Care 03/27/2019 Encounter Details Date Type Department Care Team (Late st Contact Info) Description 03/27/2019 Telephone [facility] Medicine [facility] Infertility [facility] - [address] [address] Lanette Pagan, MALIA Coordination Of Care Social History Tobacco Use [...] Notes * Telephone Encounter - Lanette Pagan, MALIA - 03/27/2019 1340 EDT PC from Reanna to report that she and her are ready to proceed with FET in April with the understanding that she may not be surpressed enough due to short window on OCP . Calendar emailed to patient and she has been scheduled for baseline. She reports she will call on Saturday or Saturday of next week to pay [employer] in order for medications to be ordered on time to start Lupron on 04/02. documented in this encounter Plan of Treatment Not on file documented as of this encounter Visit Diagnoses Not on filedocumented in this encounter Care Teams Silviculture Forester Relationship Specialty Start Date End Date [employer] Internal Medicine, [place] [address] [place] [address] PCP - General 11/03/15 10/01/23 documented as of this encounter
--- OUTSIDE RECORDS SUMMARY | 2024-09-16 01:37 | XMS_ITS | Encounter Summary ---
Author Organization [facility] Address [address] [place] [address] Care Team Providers Care Jockey Agent Name Role Phone [facility] Internal Medicine, Primary Care Provi darrel Reason for Visit * Reason Onset Date Comments Coordination Of Care 03/24/2019 Encounter Details Date Type Department Care Team (Late st Contact Info) Description 03/24/2019 Telephone [facility] Reproductive Medicine & Infertility Center - [address] [address] Meliza Moise, MALIA Coordination Of Care Social History Tobacco [...] Telephone Encounter - Meliza Moise RN - 03/24/2019 0827 EDT Call back from Reanna, she is on her way and will wait to be fit in. * Telephone Encounter - Meliza Moise RN - 03/24/2019 0805 EDT Call from Reanna to report traffic on route to appointment and that she will be late. Relayed information to Dr. Martinez who advises she can be fit in if she arrives late or she can reschedule. Called Reanna and left message with this information, will await call back with decision. documented in this encounter Plan of Treatment Not on file documented as of this encounter Visit Diagnoses Not on filedocumented in this encounter Care Teams Jockey Agent Relationship Specialty Start Date End Date [facility] Internal Medicine, [place] [address] [place] [address] PCP - General 11/03/15 10/01/23 documented as of this encounter
--- OUTSIDE RECORDS SUMMARY | 2024-09-16 01:37 | XMS_ITS | Encounter Summary ---
Author Organization [facility] Address [address] [place] [address] Care Team Providers Care Jewelry Setter Name Role Phone [facility] Internal Medicine, Primary Care Provi darrel Reason for Visit * Reason Onset Date Comments Coordination Of Care 05/06/2019 Encounter Details Date Type Department Care Team (Late st Contact Info) Description 05/06/2019 Telephone [facility] Medicine [facility] Infertility [facility] - [address] [address] Meliza Moise, MALIA Coordination Of [...] Telephone Encounter - Meliza Moise RN - 05/06/2019 3127 EDT Call from Reanna asking if she could go to lab for hCG on Saturday05/08/19 as she will be out of town on Saturday05/09/19. Advised her that she can go on Saturday, and we had faxed orders to [facility]. She is agreeable to this and will present to the lab Saturday. documented in this encounter Plan of Treatment Not on file documented as of this encounter Visit Diagnoses Not on filedocumented in this encounter Care Teams Jewelry Setter Relationship Specialty Start Date End Date [facility] Internal Medicine, [place] [address] [place] [address] PCP - General 11/03/15 10/01/23 documented as of this encounter
--- OUTSIDE RECORDS SUMMARY | 2024-09-16 01:37 | XMS_ITS | Encounter Summary ---
Author Organization [facility] Address [address] [place] [address] Care Team Providers Care Funeral Workers Name Role Phone [facility] Internal Medicine, Primary Care Provi darrel Reason for Visit * Reason Onset Date Comments Abdominal Cramping 01/08/2019 Encounter Details Date Type Department Care Team (Late st Contact Info) Description 01/08/2019 Telephone [facility] Reproductive Medicine & Infertility Center - [facility] [address] [place] [address] Lanette Pagan RN Abdominal Cramping Social History Tobacco Use Types Packs/Day Years [...] Telephone Encounter - Lanette Pagan RN - 01/08/2019 1349 EDT From: Lanette Pagan Sent: December 1:49 PM To: 'Reannabret Espinoza' <[email or web address]> Subject: RE: Mamta Forte Cramping can be completely normal in early . As long as you have not had bleeding or any sharp/severe pain, the cramping alone is not necessarily worrisome. Let???s see what your HCG is tomorrow as planned, and then we will go ahead and get you scheduled for your first ultrasound during next week some time. Talk to you soon ! AMN From: Reanna Espinoza <[email or web address]> Sent: December 11:37 AM To: Lanette Pagan <[email or web address]> Subject: Re: Mamta Snell - I just wanted to touch base with you. I am still having a lot of cramping and wanted to make sure this was normal. I have not had any spotting or pain necessarily just cramping. I want to make sure this is nothing to be concerned about. Thank you, Reanna documented in this encounter Plan of Treatment Not on file documented as of this encounter Visit Diagnoses Diagnosis resulting from assisted reproductive technology in first trimester- Primary documented in this encounter Care Teams Funeral Workers Relationship Specialty Start Date End Date [facility] Internal Medicine, [address] [place] [address] PCP - General 11/03/15 10/01/23 documented as of this encounter
--- OUTSIDE RECORDS SUMMARY | 2024-09-16 01:37 | XMS_ITS | Encounter Summary ---
Author Organization [facility] Address [address] [place] [address] Care Team Providers Care Glaciologist Name Role Phone [facility] Internal Medicine, Primary Care Provi darrel Reason for Visit * Reason Onset Date Comments Coordination Of Care 02/27/2019 Encounter Details Date Type Department Care Team (Late st Contact Info) Description 02/27/2019 Telephone [facility]ductive Medicine [facility] Infertility Center - [address] [address] Lanette Pagan RN Coordination Of [...] Telephone Encounter - Meliza Moise RN - 03/18/2019 1115 EDT Scheduled for HyCoSy on 03/24/19 at 0820, CD#7. Advised pt to arrive 10 min early for her appointment and to take 600-800mg of ibuprofen/motrin 1 hour prior to her scheduled US to help with post procedural cramping/discomfort. Pt was advised for need for repeat mock. Advised her to arrive with full bladder. Pt verbalized understanding. * Telephone Encounter - Lanette Pagan, RN - 02/27/2019 0911 EDT PC to Reanna to discuss desired upcoming IVF cycle . Advised of work-up needed - repeat SHG. She understands to call on her next CD #1 in order to schedule this. She agreed to call if no menses by 5 weeks s/p PAUL. FET template emailed to patient to review. Discussed that there is space in April cohort if hercycle starts in time. documented in this encounter Plan of Treatment Not on file documented as of this encounter Visit Diagnoses Not on filedocumented in this encounter Care Teams Glaciologist Relationship Specialty Start Date End Date [facility] Internal Medicine, [place] [address] [place] [address] PCP - General 11/03/15 10/01/23 documented as of this encounter
--- OUTSIDE RECORDS SUMMARY | 2024-09-16 01:37 | XMS_ITS | Encounter Summary ---
Author Organization [facility] Address [address] [place] [address] Care Team Providers Care Electrician Outside Name Role Phone [facility] Internal Medicine, Primary Care Provi darrel Reason for Visit * Reason Comments Encounter Details Date Type Department Care Team (Late st Contact Info) Description 01/21/2019 8:00 EDT Office Visit [facility] [address] [id number] Meliza Sena MD [address] [facility], [address] [place] [address] resulting from assisted reproductive technology [...] in this encounter Progress Notes * Vonnie Martinez MD - 01/21/2019 0800 EDT Patient was seen in ultrasound for first OB scan. Ultrasound results were discussed with patient and we reviewed the below: -At time of this ultrasound, viability of is unclear. Possible embryo with CRL measuring one week behind dates by day of embryo transfer. Unclear cardiac activity. Discussed the possibilitythat will not continue or has already demised, but that repeat scan is necessary. -In order to determine viability we will repeat her Ob US in 10-14 days. -continue PNV, all other medications reviewed. -Continue P4 in oil until 10 weeks gestation -Advised to call with bleeding, pain or concerns. -The patient has 3CC and 3CB cryopreserved. We did not discuss this at todays visit in lieu of ultrasound findings. The patient was discussed with Dr. Jaida Martinez MD Reproductive Endocrinology and Infertility Fellow documented in this encounter Plan of Treatment Not on file documented as of this encounter Visit Diagnoses Diagnosis resulting from assisted reproductive technology in first trimester- Primary documented in this encounter Discontinued Medications Medication Sig Discontinue Reason Start Date End Da te menotropins (MENOPUR) 75 unit solution for subcutaneous injection Inject 75 Units into the skin daily. 11/06/2018 01/25/2019 choriogonadotropin keke (OVIDREL) 250 mcg/0.5 mL injection solution Inject 250 mcg into the skin once for 1 dose. Inject as directed by physician 06/06/2018 01/25/2019 choriogonadotropin keke (OVIDREL) 250 mcg/0.5 mL injection solution Inject 250 mcg into the skin daily. 05/27/2018 01/25/2019 Follitropin Keke (GONAL-F) 1,050 unit recon soln Inject 225 Units into the skin daily. 11/06/2018 01/25/2019 letrozole (FEMARA) 2.5 mg tablet Take 1 Tab by mouth daily. 08/21/2018 01/25/2019 chorionic gonadotropin, human (PREGNYL) 10,000 unit injection Inject 10,000 Units into the skin once for 1 dose. Use once when directed. 11/06/2018 01/25/2019 norgestimate-ethinyl estradiol (ORTHO-CYCLEN, 28,) 0.25-35 mg-mcg per tablet Take 1 tablet by mouth daily. Take continuously, discard inactive pills and immediately open new pack 11/18/2018 01/25/2019 cabergoline (DOSTINEX) 0.5 mg tablet Take one tablet daily for 7 days 12/18/2018 01/25/2019 leuprolide (LUPRON) 1 mg/0.2 mL injection Inject 10 units into the skin. Decrease as directed. 11/06/2018 01/25/2019 documented as of this encounter Care Teams Electrician Outside Relationship Specialty Start Date End Date [facility] Internal Medicine, [facility] [address] [place] [address] PCP - General 11/03/15 10/01/23 documented as of this encounter
--- OUTSIDE RECORDS SUMMARY | 2024-09-16 01:37 | XMS_ITS | Encounter Summary ---
Author Organization [facility] Address [address] [place] [address] Care Team Providers Care Nursing Home Administrator Name Role Phone [facility] Internal Medicine, Primary Care Provi darrle Reason for Visit * Reason Onset Date Comments Coordination Of Care 04/28/2019 Encounter Details Date Type Department Care Team (Late st Contact Info) Description 04/28/[address] [facility] Reproductive Medicine & Infertility Center - [address] [address] Meliza Moise, MALIA Coordination Of [...] Telephone Encounter - Meliza Moise RN - 04/28/2019 1446 EDT Call to pt to schedule embryo transfer. This will be a day 6 transfer. Pt instructed to arrive at 10:00 for a 10:30 procedure on 04/30/19. Patient instructions: ?? Check in at the [...] on filedocumented in this encounter Care Teams Nursing Home Administrator Relationship Specialty Start Date End Date [facility] Internal Medicine, [facility] [place] [address] PCP - General 11/03/15 10/01/23 documented as of this encounter
--- OUTSIDE RECORDS SUMMARY | 2024-09-16 01:37 | XMS_ITS | Encounter Summary ---
Author Organization [facility] Address [address] [place] [address] Care Team Providers Care Cd Mixer Name Role Phone [facility] Internal Medicine, Primary Care Provi darrel Reason for Referral * SKEIN DRIER (Routine) - New Request Specialty Diagnoses / Procedures Referred By Serene martinez Referred To Contact Diagnoses Supervision of resulting from assisted reproductive technology in first trimester Procedures ABSENCE MANAGEMENT CONSULTANT OB FIRST TRIMESTER TRANSVAGINAL Meliza Sena MD Phone: tel: fax: Referral ID Status Reason Start Date Expiration Date V isits Requested Visits Authorized [id number] New Request 01/21/2019 1 1 Reason for Visit * Reason Onset Date Comments 01/21/2019 Encounter Details Date Type Department Care Team ([facility] Contact Info) Description 01/21/2019 Orders Only [facility] Reproductive Medicine & Infertility Center - [facility] [address] [place], [place] [id number] Vonnie Martinez MD [address] [place] [phone] Supervision of resulting from assisted reproductive technology in first [...] Notes * Vonnie Martinez MD - 01/21/2019 0934 EDT Repeat OB ultrasound ordered Vonnie Martinez MD Reproductive Endocrinology and Infertility Fellow documented in this encounter Plan of Treatment Not on file documented as of this encounter Procedures Procedure Name Priority Date/Time Associated Diagnosis Comments ABSENCE MANAGEMENT CONSULTANT US OB FIRST TRIMESTER TRANSVAGINAL Routine 02/02/2019 11:07 EDT Supervision of resulting from assisted reproductive technology in first trimester documented in this encounter Results * ABSENCE MANAGEMENT CONSULTANT US OB FIRST TRIMESTER TRANSVAGINAL (02/02/2019 11:07 EDT) Anatomical Region Laterality Modality Other 02/02/2019 11:0 7 EDT 03/09/2019 12:02 EDT Narrative 03/09/2019 12:02 EDT Indication Early Assessment follow-up viability. IVF/ET . Number of fetuses: 1. Dating ======= Conception: ?Invitro fertilization Embryo transfer on: ?12/21/2018 IVF / ET ?? 3 d GA by IVF / ET 8 w + 4 d KYLAH by IVF / ET: ?? 09/10/2019 Assigned: ??Dating performed on 01/21/2019, based on the IVF / ET date Assigned GA ?8 w + 4 d Assigned KYLAH: ??09/10/2019 Assessment Gestational sac: Visualized. Location: Intrauterine. Yolk sac: Visualized. Amniotic sac: Not visualized. Embryo: Not visualized. Cardiac activity: Undetected. Maternal Structures Uterus / Cervix Uterus details: ?No abnormalities detected Uterus position: ?? anteverted Cervix: ?Appears normal Ovaries / Tubes / Adnexa Rt ovary: ??Visualized, normal appearance Rt ovary other findings: ?? Limited view of ovary seen previously Lt ovary: ??Visualized, normal appearance Lt ovary other findings: ?? Limited view of ovary seen previously Pouch of Tom / Other Structures Free fluid: ?No free fluid visualized Method ======== Transvaginal ultrasound examination. View: Sufficient. Impression 1st Trimester ,Transvaginal-limited OB scan +[id number]. There is a yolk sac within the gestational sac but no interval development of an embryo, confirming anembryonic demise. There is a moderate amount of hyperechoic and anechoic fluid surrounding the gestational sac consistent with subchorionic hemorrhage. The ovaries were evaluated and unchanged from prior scans, appear consistent with recent stimulation for IVF. Follow-up Follow-up as clinically indicated. Comment ========= Results discussed w/patient. DATE OF SERVICE: 02/02/2019 Procedure Note Alesia Law MD, - 03/09/2019 Indication Early Assessment follow-up viability. IVF/ET . Number of fetuses: 1. Dating ======= Conception: Invitro fertilization Embryo transfer on: 12/21/2018 IVF / ET 3 d GA by IVF / ET 8 w + 4 d KYLAH by IVF / ET: 09/10/2019 Assigned: Dating performed on 01/21/2019, based on the IVF / ET date Assigned GA 8 w + 4 d Assigned KYLAH: 09/10/2019 Assessment Gestational sac: Visualized. Location: Intrauterine. Yolk sac: Visualized. Amniotic sac: Not visualized. Embryo: Not visualized. Cardiac activity: Undetected. Maternal Structures Uterus / Cervix Uterus details: No abnormalities detected Uterus position: anteverted Cervix: Appears normal Ovaries / Tubes / Adnexa Rt ovary: Visualized, normal appearance Rt ovary other findings: Limited view of ovary seen previously Lt ovary: Visualized, normal appearance Lt ovary other findings: Limited view of ovary seen previously Pouch of Tom / Other Structures Free fluid: No free fluid visualized Method ======== Transvaginal ultrasound examination. View: Sufficient. Impression 1st Trimester ,Transvaginal-limited OB scan +[id number]. There is a yolk sac within the gestational sac but no interval development of an embryo, confirming anembryonic demise. There is a moderate amount of hyperechoic and anechoic fluid surrounding the gestational sac consistent with subchorionic hemorrhage. The ovaries were evaluated and unchanged from prior scans, appear consistent with recent stimulation for IVF. Follow-up Follow-up as clinically indicated. Comment ========= Results discussed w/patient. DATE OF SERVICE: 02/02/2019 Meliza Sena MD IMG US ABSENCE MANAGEMENT CONSULTANT ORDERABLES Final Result documented in this encounter Visit Diagnoses Diagnosis Supervision of resulting from assisted reproductive technology in first trimester- Primary resulting from assisted reproductive technology documented in this encounter Care Teams Cd Mixer Relationship Specialty Start Date End Date [facility] Internal Medicine, [facility] [address] [place] [address] PCP - General 11/03/15 10/01/23 documented as of this encounter
--- OUTSIDE RECORDS SUMMARY | 2024-09-16 01:37 | XMS_ITS | Encounter Summary ---
Author Organization [facility] Address [address] [place] [address] Care Team Providers Care Admitting Supervisor Name Role Phone Internal Medicine, Primary Care Provi darrel Encounter Details Date Type Department Care Team (Late st Contact Info) Description 04/24/2019 Results Only Imaging [facility] Reproductive Medicine & Infertility Center [facility] [address] [facility] [place] [address] Maryan Jameson MD [address] [facility], [address] [place] [address] Social History Tobacco Use Types [...] Procedure Name Priority Date/Time Associated Diagnosis Comments ORACLE DEVELOPER US EXAM 04/24/2019 9:46 EDT documented in this encounter Results * ORACLE DEVELOPER US EXAM (04/24/2019 9:46 EDT) Anatomical Region Laterality Modality Other 04/24/2019 9:46 EDT 04/24/2019 9:50 EDT Narrative 04/24/2019 9:50 EDT Indication FET, day 14 endometrial lining check. Uterus ======= Uterus: ?Appears normal Uterus position: ?? Anteverted Uterine malformations: None Myometrium: ?Fibroid Endometrium: ?? Trilaminar endometrium Cervix details: ?Normal appearance Endometrial thickness, total ?? 11.0 mm Fibroids: ??No fibroids identified Polyps: ?No polyps identified Right Ovary Rt ovary: ??Visualized, normal appearance Rt ovary details: ??Quiescent Left Ovary Lt ovary: ??Visualized, normal appearance Lt ovary details: ??Quiescent Cul de Sac Appears normal. No free fluid visualized. Impression Limited transvaginal follicular ultrasound-[id number] Normal anteverted uterus, trilaminar endometrium. Normal quiescent ovaries. Follow-up Clear to start IM progesterone. Comment ========= Ultrasound findings discussed w/patient. DATE OF SERVICE: 04/24/2019 Procedure Note Sue Hyman MD - 04/24/2019 Indication FET, day 14 endometrial lining check. Uterus ======= Uterus: Appears normal Uterus position: Anteverted Uterine malformations: None Myometrium: Fibroid Endometrium: Trilaminar endometrium Cervix details: Normal appearance Endometrial thickness, total 11.0 mm Fibroids: No fibroids identified Polyps: No polyps identified Right Ovary Rt ovary: Visualized, normal appearance Rt ovary details: Quiescent Left Ovary Lt ovary: Visualized, normal appearance Lt ovary details: Quiescent Cul de Sac Appears normal. No free fluid visualized. Impression Limited transvaginal follicular ultrasound-[id number] Normal anteverted uterus, trilaminar endometrium. Normal quiescent ovaries. Follow-up Clear to start IM progesterone. Comment ========= Ultrasound findings discussed w/patient. DATE OF SERVICE: 04/24/2019 us Maryan Torres MD IMG US ORACLE DEVELOPER NIKOLAY VALENCIA Final Result documented in this encounter Visit Diagnoses Not on filedocumented in this encounter Care Teams Admitting Supervisor Relationship Specialty Start Date End Date [facility] Internal Medicine, [facility] [address] [place] [address] PCP - General 11/03/15 10/01/23 documented as of this encounter
--- OUTSIDE RECORDS SUMMARY | 2024-09-16 01:37 | XMS_ITS | Encounter Summary ---
Author Organization [facility] Address [address] [place] [address] Care Team Providers Care Electrotype Finisher Name Role Phone Internal Medicine Primary Care Provi darrel Reason for Visit * Reason Onset Date Comments Coordination Of Care 02/08/2019 Encounter Details Date Type Department Care Team ([facility] st Contact Info) Description 02/08/2019 Telephone [facility] Reproductive Medicine & Infertility Center - [facility] [address] [place] [address] Vonnie Martinez MD [address] [place] [phone] Coordination Of Care Social History Tobacco Use [...] encounter Miscellaneous Notes * Telephone Encounter - Vonnie Martinez MD - 02/08/2019 0035 EDT Reanna reports she has only had a little bit of bleeding overnight, but no tissue or clots. No continued bleeding now. I instructed Reanna to do a second dose, and confirmed she has a refill at her pharmacy. She will call tomorrow to update us. Vonnie Martinez MD Reproductive Endocrinology and Infertility Fellow documented in this encounter Plan of Treatment Not on file documented as of this encounter Visit Diagnoses Not on filedocumented in this encounter Care Teams Electrotype Finisher Relationship Specialty Start Date End Date [facility] Internal Medicine, Mp [address] [place] [address] PCP - General 11/03/15 10/01/23 documented as of this encounter
--- OUTSIDE RECORDS SUMMARY | 2024-09-16 01:37 | XMS_ITS | Encounter Summary ---
Author Organization [facility] Address [address] [place] [address] Care Team Providers Care Application Programmer Analyst Name Role Phone [facility] Internal Medicine, Primary Care Provi darrel Reason for Visit * Reason Onset Date Comments Results 04/21/2019 Encounter Details Date Type Department Care Team (Late st Contact Info) Description 04/21/2019 Telephone [facility] Reproductive Medicine & Infertility Center - [facility] [address] [place] [address] Johanne Khan RN [address] [place] [address] Results Social History Tobacco Use Types Packs/Day [...] Miscellaneous Notes * Telephone Encounter - Johanne Khan, RN - 04/21/2019 1315 EDT Telephoned patient to review results of labs and continued medication plan. Component Latest Ref Rng & Units 04/21/2019 Estradiol pg/ml 151 Advised patient to continue current medication plan (3mg estrace BID). Next step is USE Tuesday 04/24at 0900. Discussed with Dr Hyman. Pt verbalized understanding of plan. documented in this encounter Plan of Treatment Not on file documented as of this encounter Visit Diagnoses Diagnosis Encounter for assisted reproductive fertility cycle- Primary Encounter for assisted reproductive fertility procedure cycle documented in this encounter Care Teams Application Programmer Analyst Relationship Specialty Start Date End Date [facility] Internal Medicine, [facility] [address] [place] [address] PCP - General 11/03/15 10/01/23 documented as of this encounter
--- OUTSIDE RECORDS SUMMARY | 2024-09-16 01:37 | XMS_ITS | Encounter Summary ---
Author Organization [facility] Address [address] [place] [address] Care Team Providers Care Mop Machine Operator Name Role Phone Internal Medicine Primary Care Provi darrel Reason for Visit * Reason Onset Date Comments Coordination Of Care 10/28/2019 offer telem edicine Encounter Details Date Type Department Care Team (Late st Contact Info) Description 10/28/[address] [facility] Reproductive Medicine & Infertility Center - [address] [address] [place] [address] [place], [place] [phone] Coordination Of Care (offer telemedicine) Social History Tobacco Use Types Packs/Day Years [...] encounter Miscellaneous Notes * Telephone Encounter - Allie Aldana MA - 10/28/2019 0840 EDT Called patient to offer telemedicine visit for today's consult. Patient agreed this would be best, said okay for Dr. Phillip to at same time/day on phone number [phone]. ALLIE ALDANA MA 10/28/2019 8:41 documented in this encounter Plan of Treatment Not on file documented as of this encounter Visit Diagnoses Not on filedocumented in this encounter Care Teams Mop Machine Operator Relationship Specialty Start Date End Date [facility] Internal Medicine, [facility] [address] [place] [address] PCP - General 11/03/15 10/01/23 documented as of this encounter
--- OUTSIDE RECORDS SUMMARY | 2024-09-16 01:37 | XMS_ITS | Encounter Summary ---
Author Organization [facility] Address [address] [place] [address] Care Team Providers Care Paving Machine Operator Name Role Phone Internal Medicine, Primary Care Provi darrel Reason for Visit * Reason Comments Miscarriage Encounter Details Date Type Department Care Team (Late st Contact Info) Description 02/10/2019 9:00 EDT Office Visit [facility] OBGYN Services - [facility] [address] [place], [place] [phone] Hortensia Hubbard MD [address] [facility], [address] [place] [address] Retained products of conception after miscarriage (Primary Dx) Social History Tobacco Use Types [...] documented in this encounter Progress Notes * Hortensia Hubbard MD, - 02/10/2019 0900 EDT Manual Vacuum Aspiration Indication: anembryonic demise, retained intrauterine clot Gestational Age: ~9 wks by IFV dates, but GS no longer visible on u/s, only large amt of avascular clot. Consent: Written consent obtained after discussion of risks/benefits/alternatives Antibiotics: 200 mg po doxycycline just after to the procedure Anesthesia: PO Ibuprofen, paracervical block ?? Procedure: A time out was completed to verify correct patient, procedure and consent. The patient was placed in the lithotomy position after review of the ultrasound images performed immediately before exam which showed an anteverted uterus. A speculum was placed and the cervix was cleansed with betadine x3. 2 cc of 1% lidocaine was injected into the 12 o'clock position of the cervix and a tenaculum was placed. A paracervical block was performed with the remaining 18 cc of 1% lidocaine injected1 cm deep to the cervicovaginal junctions divided between the 4 and 8 o'clock positions. The cervixwas then serially dilated up to 7 mm. A flexible 7 mm cannula was then inserted into the cervix andthe manual vacuum aspirator was attached. 3 passes with the aspirator were performed with appropriate uterine tone, grittiness and hemostasis at the completion of the 3rd pass. All instruments were removed from the vagina after verification of good hemostasis. The patient tolerated the procedure well, there were no complications. ?? The removed products appeared visually consistent with organized blood clot. The specimen was not sent to pathology. ?? Plan: Patient counseled on what to expect with regards to bleeding and pain and we discussed warning symptoms for when to call (Heavy bleeding soaking through <1pad/hour, foul-smelling discharge, fevers, or worsening abdominal pain). No follow-up visit is required unless she has any concerns. Wediscussed that there is no medical reason to wait any specified period of time prior to attempting c onception again, advised that ovulation can occur as soon as 7-10 days after this procedure and to expect her menses within 3-4 weeks. We also discussed that a test may be positive for 2-4 weeks following this procedure. She understands and all of her questions were answered to the best of my abilities. Hortensia Hubbard MD documented in this encounter Plan of Treatment Not on file documented as of this encounter Visit Diagnoses Diagnosis Retained products of conception after miscarriage- Primary documented in this encounter Care Teams Paving Machine Operator Relationship Specialty Start Date End Date [facility] Internal Medicine, [facility] [address] [place] [address] PCP - General 11/03/15 10/01/23 documented as of this encounter
--- OUTSIDE RECORDS SUMMARY | 2024-09-16 01:37 | XMS_ITS | Encounter Summary ---
Author Organization [facility] Address [address] [place] [address] Care Team Providers Care Software Developer Manager Name Role Phone [facility] Internal Medicine, Primary Care Provi darrel Encounter Details Date Type Department Care Team (Late st Contact Info) Description 04/18/2019 Orders Only [facility] Reproductive Medicine & Infertility Center [facility] [address] [facility] [address], [address] [place] [address] Maryan Jameson MD [address] [facility], [facility] [address] [place] [address] Supervision of resulting from assisted reproductive technology [...] as of this encounter Visit Diagnoses Diagnosis Supervision of resulting from assisted reproductive technology in first trimester- Primary resulting from assisted reproductive technology documented in this encounter Care Teams Software Developer Manager Relationship Specialty Start Date End Date [facility] Internal Medicine, [facility] [address] [place] [place] [address] PCP - General 11/03/15 10/01/23 documented as of this encounter
--- OUTSIDE RECORDS SUMMARY | 2024-09-16 01:37 | XMS_ITS | Encounter Summary ---
Author Organization [facility] Address [address] [place] [address] Care Team Providers Care Vacuum Drier Tender Name Role Phone Internal Medicine, Primary Care Provi darrel Reason for Visit * Reason Onset Date Comments Prior Auth, Other (i.e. radiology, etc.) 019 Encounter Details Date Type Department Care Team (Late st Contact Info) Description 03/31/2019 Telephone [facility] OBGYN Services - [facility] [address] [place] [address] Maryan Jameson MD 111 [facility], [address] [place] [address] Prior Auth, Other (i.e. radiology, etc.) Social History Tobacco Use Types Packs/Day Years [...] encounter Miscellaneous Notes * Telephone Encounter - Madison Gupta - 03/31/2019 1613 EDT LVM for patient to collect her [employer] payment of $2,700.00. Awaiting patient call back and willkaden [facility] Nurses know oni documented in this encounter Plan of Treatment Not on file documented as of this encounter Visit Diagnoses Not on filedocumented in this encounter Care Teams Vacuum Drier Tender Relationship Specialty Start Date End Date [facility] Internal Medicine, [place] [address] [place] [address] PCP - General 11/03/15 10/01/23 documented as of this encounter
--- OUTSIDE RECORDS SUMMARY | 2024-09-16 01:37 | XMS_ITS | Encounter Summary ---
Author Organization [facility] Address [address] [place] [address] Care Team Providers Care Iuss Master Analyst Name Role Phone Internal Medicine, Primary Care Provi darrel Encounter Details Date Type Department Care Team (Late st Contact Info) Description 04/18/2019 7:41 EDT - 04/18/2019 23:59 EDT Hospital Encounter [facility] [address] [place] [address] Maryan Jameson MD [address] [facility] [address] [place] [address] Discharge Disposition: Home or Self [...] 13:35 EDT documented in this encounter Discharge Diagnoses Diagnosis Z31.83 Encounter for assisted reproductive fertility procedure cycle-Z31.83[ICD-10-CM] documented in this encounter Medications at Time of Discharge estradiol (ESTRACE) 1 mg tablet Take 3 Tabs by mouth 2 times daily. 200 Tab 03/31/2019 04/19/2020 leuprolide (LUPRON) 1 mg/0.2 mL injection Inject 20 units into the skin. Decrease to 10 units when directed. 2 Each 03/31/2019 09/06/2020 progesterone in oil 50 mg/mL injection Inject 1.5 mL into the muscle daily. 3 Vial 03/31/2019 04/19/2020 documented as of this encounter Discharge Disposition Disposition Code Departure Means Destination Home or Self [facility] documented in this encounter Plan of Treatment Not on file documented as of this encounter Visit Diagnoses Not on filedocumented in this encounter Care Teams Iuss Master Analyst Relationship Specialty Start Date End Date [facility] Internal Medicine, [facility] [address] [place] [address] PCP - General 11/03/15 10/01/23 documented as of this encounter
--- OUTSIDE RECORDS SUMMARY | 2024-09-16 01:37 | XMS_ITS | Encounter Summary ---
Author Organization [facility] Address [address] [place] [address] Care Team Providers Care Digital Forensic Examiner Name Role Phone Internal Medicine, Primary Care Provi darrel Reason for Visit * Reason Onset Date Comments Results 01/07/2019 Encounter Details Date Type Department Care Team (Late st Contact Info) Description 01/07/2019 Telephone [facility] Reproductive Medicine & Infertility Center [facility] [address] [place], [place] [id number] Maryan Jameson MD 111 [facility] 4 [place] [address] Results Social History Tobacco Use [...] encounter Miscellaneous Notes * Telephone Encounter - Maryan Thompson MD - 01/07/2019 1059 EDT Results for DIMAS CUETO ( ) as of 01/07/2019 11:00 Ref. Range 01/01/2019 10:09 01/03/2019 00:00 01/05/2019 12:03 01/07/2019 09:01 Quant Beta HCG, Preg Latest Ref Range: <5 mIU/ml 45 (H) 151 (H) 278 (H) HCG, External Unknown 62 I called the patient to discuss the results of her hCG values today. She reports she is cautiously optimistic. She denies abdominal pain, spotting or bleeding. She is containing her progesterone. I discussed the rise of approximately 53 percentile. I have encouraged her to have another hCG value drawn on Saturday. She like to have that drawn at [facility]. I discussed obtaining an ultrasound roughly 5-1/2 weeks which will be the week and a half after next that she is currently 4 weeks and 6 days today. Patient expressed her understanding of instructions. I will have the nurses fax request for serial hCGs were drawn at [facility]. documented in this encounter Plan of Treatment Not on file documented as of this encounter Visit Diagnoses Not on filedocumented in this encounter Care Teams Digital Forensic Examiner Relationship Specialty Start Date End Date [facility] Internal Medicine, Mp [address] [place] [address] PCP - General 11/03/15 10/01/23 documented as of this encounter
--- OUTSIDE RECORDS SUMMARY | 2024-09-16 01:37 | XMS_ITS | Encounter Summary ---
Author Organization [facility] Address [address] [place] [address] Care Team Providers Care Halal Meat Packer Name Role Phone [facility] Internal Medicine Primary Care Provi darrel Reason for Visit * Reason Onset Date Comments Coordination Of Care 04/19/2020 Encounter Details Date Type Department Care Team (Late st Contact Info) Description 04/19/2020 Telephone [facility] Reproductive Medicine & Infertility Center - [address] [address] Meliza Moise RN Coordination Of [...] Refills Last Filled Start Date End Date norgestimate-ethin yl estradioL (ORTHO-CYCLEN, 28,) 0.25-35 mg-mcg per tablet Take active tabs continuously. Discard inactive tabs. 56 Tab 04/19/2020 0 documented in this encounter Miscellaneous Notes * Addendum Note - Meliza Moise RN - 04/19/2020 1637 EDTAddended by: MELIZA MOISE on: 04/19/2020 16:37 Modules accepted: Orders * Telephone Encounter - Meliza Moise RN - 04/19/2020 1635 EDT Call to [facility] to discuss upcoming IVF cycle. Advised pt that we current have IVF cycle planned for the week of July 18. At this time, next steps are to start continuous OCPs with menses that begins between 05/22 and 06/16. Prescription sent to preferred pharmacy. Reviewed the remaining items to be completed prior to IVF cycle, including updated COVID counselingappointment if appropriate. Will call back to schedule based on Dr. Phillip's input. Patient verbalized understanding, reviewed that she should call back with cycle day 1 to see if she should start OCPs or wait until next menses. Pt verbalized understanding and has no further questions. * Telephone Encounter - Meliza Moise RN - 04/19/2020 2966 EDT Call to [facility] Forte to call back to discuss IVF coordination. Will need to start OCPs with menses that occurs between 05/22 and 06/16. documented in this encounter Plan of Treatment Not on file documented as of this encounter Visit Diagnoses Not on filedocumented in this encounter Discontinued Medications Medication Sig Discontinue Reason Start Date End Da te estradiol (ESTRACE) 1 mg tablet Take 3 Tabs by mouth 2 times daily. 03/31/2019 04/19/2020 progesterone in oil 50 mg/mL injection Inject 1.5 mL into the muscle daily. 03/31/2019 04/19/2020 documented as of this encounter Care Teams Halal Meat Packer Relationship Specialty Start Date End Date [facility] Internal Medicine, [facility] [address] [place] [address] PCP - General 11/03/15 10/01/23 documented as of this encounter
--- OUTSIDE RECORDS SUMMARY | 2024-09-16 01:37 | XMS_ITS | Encounter Summary ---
Author Organization [facility] Address [address] [place] [address] Care Team Providers Care Boat Finisher Name Role Phone [facility] Internal Medicine, Primary Care Provi darrel Reason for Visit * Reason Onset Date Comments Follow-up 04/20/2019 Encounter Details Date Type Department Care Team (Late st Contact Info) Description 04/20/2019 Telephone [facility] Reproductive Medicine & Infertility Center - [facility] [address] [place] [address] Johanne Khan RN [address] [place] [address] Follow-up Social History Tobacco Use Types Packs/Day Years [...] Telephone Encounter - Johanne Khan, RN - 04/20/2019 1018 EDT Call to Reanna with results and plan. Estradiol on 04/18 was 128. Per calendar, should have increased to 3mg BID today (pt reports she did not, but will take an additional 1mg now, and take 3mg tonight). Advised that she go to the lab this morning for repeat E2. Pt is currently in the middle of a 24hour shift, and cannot leave to have labs drawn. She will go tomorrow morning 04/21, and we will follow up with results. US scheduled for 04/24 at 0900 (she cannot come any earlier). Component Latest Ref Rng & Units 04/18/2019 Estradiol pg/ml 128 documented in this encounter Plan of Treatment Not on file documented as of this encounter Visit Diagnoses Not on filedocumented in this encounter Care Teams Boat Finisher Relationship Specialty Start Date End Date [facility] Internal Medicine, [facility] [address] [place] [address] PCP - General 11/03/15 10/01/23 documented as of this encounter
--- OUTSIDE RECORDS SUMMARY | 2024-09-16 01:37 | XMS_ITS | Encounter Summary ---
Author Organization [facility] Address [address] [place] [address] Care Team Providers Care Provider Education Specialist Name Role Phone Internal Medicine, Primary Care Provi darrel Encounter Details Date Type Department Care Team (Late st Contact Info) Description 04/30/2019 9:53 EDT - 04/30/2019 23:59 EDT Hospital Encounter [facility] Reproductive Medicine & Infertility Center - [facility] [address] [place] [address] Maryan Jameson MD [address] [facility] [address] [place] [address] Discharge Disposition: Auto Discharge Social History Tobacco Use Types Packs/Day Years [...] fertility procedure cycle-Z31.83[ICD-10-CM] documented in this encounter Discharge Instructions * Discharge Instructions* Meliza Moise RN - 04/30/2019 10:09 EDT 1. Avoid strenuous activity and heavy [...] your embryo transfer. 5. Due for HCG 05/09/19 and 05/11/19. documented in this encounter Medications at Time [...] Discharge Disposition Disposition Code Departure Means Destination Auto Discharge Home documented in this encounter Procedure Notes * Vonnie Vega - 04/30/2019 1032 EDTProcedure(s): [facility] EMBRYO TRANSFER INTRAUTERINE Pre-Procedure Diagnose(s): Encounter for assisted reproductive fertility cycle Post-Procedure Diagnose(s): Encounter for assisted reproductive fertility cycle EMBRYO TRANSFER NOTE Embryo culture results were discussed with the patient. Today we plan on transferring 2 day 5 embryo(s). Additionally, the patient will have none remaining vitrified today. Time out performed prior to start of procedure. ? Endometrial lining measured 10.1 mm; excellent visualization. ?? Sterile speculum inserted, cervix cleaned with sterile culture media. Endocervix cleaned of cervical mucus with small cotton swab. No bleeding occurred. Under ultrasound guidance, the Salcedo embryo transfer catheter was passed without difficulty in one attempt into the endocervical canal to the level of the internal cervical os. The lab was then notified to load the embryo(s) into the inner catheter: embryo(s) were 3CB, 3CC. The stylette guide was then removed from the outer sheath, and the inner catheter was introduced to the upper to middle . The embryo(s) were then transferred into the uterine cavity. After a 15 second pause, the catheter was removed and returned to the lab. There was no blood or mucus on the catheter, and no embryo(s) were retained. No uterine cramping occurred. The speculum was then removed. The patient did not require drainage of her bladder. Transfer performed by Dr. Thompson, assisted by Dr. Martinez. ?? Vonnie Martinez MD Reproductive Endocrinology and Infertility Fellow Cosigned by Maryan Thompson at 04/30/2019 11:41 EDT documented in this encounter Plan of Treatment Not on file documented as of this encounter Visit Diagnoses Not on filedocumented in this encounter Administered Medications Inactive Administered Medications - up to 3 most recent administrations Medication Order MAR Action Action Date Dose Rate Site progesterone in oil injection 100 mg 100 mg, intramuscular, NOW X1, 1 dose, On Diane 04/30/19 at 1030, Routine Given 04/30/2019 10:52 EDT 100 mg Right Gluteus Medius/Ventrogluteal documented in this encounter Care Teams Provider Education Specialist Relationship Specialty Start Date End Date [facility] Internal Medicine, [facility] [address] [place] [address] PCP - General 11/03/15 10/01/23 documented as of this encounter
--- OUTSIDE RECORDS SUMMARY | 2024-09-16 01:37 | XMS_ITS | Encounter Summary ---
Author Organization [facility] Address [address] [place] [address] Care Team Providers Care Public Relations Specialist Name Role Phone [facility] Internal Medicine, Primary Care Provi darrel Reason for Visit * Reason Onset Date Comments Other 02/07/2019 Encounter Details Date Type Department Care Team ([facility] st Contact Info) Description 02/07/[address] [facility] Reproductive Medicine & Infertility Center - [facility] [address] [place] [address] Vonnie Martinez MD [address] [place] [phone] Other Social History Tobacco Use Types Packs/Day Years [...] Telephone Encounter - Vonnie Martinez MD - 02/07/2019 1831 EDT TC from [facility] about pain without bleeding with her misoprostol. She took the dose this morning at8AM and has started having a very little bleeding but is having a lot of cramping and she wanted tomake sure this wasn't a problem. I reassured her that this can be normal, and to contact me in the morning either way so we can assess for a second dose. I discussed that motrin is okay to take for the cramps. She agreed to call in the morning for plan. Vonnie Martinez MD Reproductive Endocrinology and Infertility Fellow documented in this encounter Plan of Treatment Not on file documented as of this encounter Visit Diagnoses Not on filedocumented in this encounter Care Teams Public Relations Specialist Relationship Specialty Start Date End Date [facility] Internal Medicine, Mp [address] [place] [address] PCP - General 11/03/15 10/01/23 documented as of this encounter
--- OUTSIDE RECORDS SUMMARY | 2024-09-16 01:37 | XMS_ITS | Encounter Summary ---
Author Organization [facility] Address [address] [place] [address] Care Team Providers Care Marketing Support Manager Name Role Phone Internal Medicine, Primary Care Provi darrel Encounter Details Date Type Department Care Team (Late st Contact Info) Description 01/21/2019 Results Only Imaging [facility] Reproductive Medicine & Infertility Center [facility] [address] [facility] [address] [place] [address] Maryan Jameson MD 111 [facility] [address] [place] [address] Social History Tobacco Use Types [...] Procedure Name Priority Date/Time Associated Diagnosis Comments PERFUME AND TOILET WATER MAKER US OB FIRST TRIMESTER TRANSVAGINAL 01/21/2019 9:29 EDT documented in this encounter Results * PERFUME AND TOILET WATER MAKER US OB FIRST TRIMESTER TRANSVAGINAL (01/21/2019 9:29 EDT) Anatomical Region Laterality Modality Other 01/21/2019 9:29 EDT 03/12/2019 15:53 EDT Narrative 03/12/2019 15:44 EDT Indication Early Assessment. Transfer of 2 day 3 embryos on 12/21/2018. Number of gestational sacs: 1. Dating ======= Conception: ?Invitro fertilization Method of dating: ??based on the IVF / ET date Embryo transfer on: ?12/21/2018 IVF / ET ?? 3 d GA by IVF / ET 6 w + 6 d KYLAH by IVF / ET: ?? 09/10/2019 Ultrasound examination on: 01/21/2019 GA by U/S based upon: ??CRL GA by U/S ??5 w + 5 d KYLAH by U/S: ?09/18/2019 Assigned: ??Dating performed on 01/21/2019, based on the IVF / ET date Assigned GA ?6 w + 6 d Assigned KYLAH: ??09/10/2019 Assessment Gestational sac: ?? Visualized Location: ??Intrauterine Yolk sac: ??Visualized Amniotic sac: ??Visualized Embryo: ?Uncertain CRL ?2.3 mm ??<1% 5w 5d Hadlock Cardiac activity: ??Undetected Maternal Structures Uterus / Cervix Uterus: ?Anteverted Uterus details: ?No abnormalities detected. Appears normal Cervix: ?Appears normal Ovaries / Tubes / Adnexa Rt ovary D1 ?4.0 cm Rt ovary D2 ?4.3 cm Rt ovary D3 ?3.3 cm Rt ovary mean ??3.9 cm Rt ovary vol ?? 29.4 cm cubed Method ======== Transvaginal ultrasound examination. View: Sufficient. Impression 1st Trimester OB scan ,transvaginal +[id number] Single intrauterine gestational sac and yolk sac visualized. Uncertain visualization of embryonic pole. Follow-up Repeat ultrasound in 10-14 days. Comment ========= Results discussed w/patient. DATE OF SERVICE: 01/21/2019 Procedure Note Meliza Sena MD, MD - 03/12/2019 Indication Early Assessment. Transfer of 2 day 3 embryos on 12/21/2018. Number of gestational sacs: 1. Dating ======= Conception: Invitro fertilization Method of dating: based on the IVF / ET date Embryo transfer on: 12/21/2018 IVF / ET 3 d GA by IVF / ET 6 w + 6 d KYLAH by IVF / ET: 09/10/2019 Ultrasound examination on: 01/21/2019 GA by U/S based upon: CRL GA by U/S 5 w + 5 d KYLAH by U/S: 09/18/2019 Assigned: Dating performed on 01/21/2019, based on the IVF / ET date Assigned GA 6 w + 6 d Assigned KYLAH: 09/10/2019 Assessment Gestational sac: Visualized Location: Intrauterine Yolk sac: Visualized Amniotic sac: Visualized Embryo: Uncertain CRL 2.3 mm <1% 5w 5d Hadlock Cardiac activity: Undetected Maternal Structures Uterus / Cervix Uterus: Anteverted Uterus details: No abnormalities detected. Appears normal Cervix: Appears normal Ovaries / Tubes / Adnexa Rt ovary D1 4.0 cm Rt ovary D2 4.3 cm Rt ovary D3 3.3 cm Rt ovary mean 3.9 cm Rt ovary vol 29.4 cm cubed Method ======== Transvaginal ultrasound examination. View: Sufficient. Impression 1st Trimester OB scan ,transvaginal +[id number] Single intrauterine gestational sac and yolk sac visualized. Uncertain visualization of embryonic pole. Follow-up Repeat ultrasound in 10-14 days. Comment ========= Results discussed w/patient. DATE OF SERVICE: 01/21/2019 us Maryan Torres MD IMG US PERFUME AND TOILET WATER MAKER NIKOLAY VALENCIA Final Result documented in this encounter Visit Diagnoses Not on filedocumented in this encounter Care Teams Marketing Support Manager Relationship Specialty Start Date End Date [facility] Internal Medicine, Mp [address] [place] [address] PCP - General 11/03/15 10/01/23 documented as of this encounter
--- OUTSIDE RECORDS SUMMARY | 2024-09-16 01:37 | XMS_ITS | Encounter Summary ---
Author Organization [facility] Address [address] [place] [address] Care Team Providers Care Otolaryngology Nurse Name Role Phone [facility] Internal Medicine, Primary Care Provi darrel Reason for Visit * Reason Onset Date Comments Coordination Of Care 05/11/2019 Encounter Details Date Type Department Care Team (Late st Contact Info) Description 05/11/2019 Telephone [facility] Reproductive Medicine & Infertility Center - [address] [address] Meliza Moise, MALIA Coordination Of [...] Telephone Encounter - Meliza Moise RN - 05/11/2019 0915 EDT Call from Reanna that she had proceeded to lab but there were no orders. Orders faxed and pt called back to let her know orders were in place now. documented in this encounter Plan of Treatment Not on file documented as of this encounter Visit Diagnoses Diagnosis Encounter for test, result negative- Primary documented in this encounter Care Teams Otolaryngology Nurse Relationship Specialty Start Date End Date [facility] Internal Medicine, Mp [address] [facility] [address] PCP - General 11/03/15 10/01/23 documented as of this encounter
--- OUTSIDE RECORDS SUMMARY | 2024-09-16 01:37 | XMS_ITS | Encounter Summary ---
Author Organization [facility] Address [address] [place] [address] Care Team Providers Care Manager Compliance Name Role Phone [facility] Internal Medicine, Primary Care Provi darrel Reason for Visit * Reason Onset Date Comments Coordination Of Care 04/24/2019 Encounter Details Date Type Department Care Team (Late st Contact Info) Description 04/24/2019 Telephone [facility] Reproductive Medicine & Infertility Center - [address] [address] Meliza Moise RN Coordination Of [...] Telephone Encounter - Meliza Moise RN - 04/24/2019 1146 EDT Call from Reanna to request progesterone orders be sent to [facility]. Call to [facility], they state that thelab closes at 11 am and the medical instructor leaves for [facility] at 12 pm, and a STAT progesterone would have same day results. Orders faxed to [facility]. documented in this encounter Plan of Treatment Not on file documented as of this encounter Visit Diagnoses Diagnosis Encounter for assisted reproductive fertility cycle- Primary Encounter for assisted reproductive fertility procedure cycle documented in this encounter Care Teams Manager Compliance Relationship Specialty Start Date End Date [facility] Internal Medicine, [facility] [address] [place] [address] PCP - General 11/03/15 10/01/23 documented as of this encounter
--- OUTSIDE RECORDS SUMMARY | 2024-09-16 01:37 | XMS_ITS | Encounter Summary ---
Author Organization [facility] Address [address] [place] [address] Care Team Providers Care County Manager Name Role Phone Internal Medicine, Primary Care Provi darrel Reason for Visit * Reason Onset Date Comments Other 04/20/2019 Encounter Details Date Type Department Care Team (Late st Contact Info) Description 04/20/2019 Telephone [facility] OBGYN Services - [facility] [address] [place] [address] Maryan Jameson MD 111 [facility] [address] [place] [address] Other Social History Tobacco Use Types Packs/Day [...] encounter Miscellaneous Notes * Telephone Encounter - Maida Phipps - 04/20/2019 0952 EDT Eliane @ [facility] lab called because pt refused to do the beta hcg that was ordered. She said she wasonly there to have her estradiol collected. They collected her estradiol and put in another order for beta hcg. She just wanted to let her provider know they weren't able to do a bet hcg. documented in this encounter Plan of Treatment Not on file documented as of this encounter Visit Diagnoses Not on filedocumented in this encounter Care Teams County Manager Relationship Specialty Start Date End Date [facility] Internal Medicine, Mp [address] [place] [address] PCP - General 11/03/15 10/01/23 documented as of this encounter
--- OUTSIDE RECORDS SUMMARY | 2024-09-16 01:37 | XMS_ITS | Encounter Summary ---
Author Organization [facility] Address [address] [place] [address] Care Team Providers Care Professional Skater Name Role Phone [facility] Internal Medicine, Primary Care Provi darrel Reason for Visit * Reason Onset Date Comments Miscarriage 02/05/2019 Encounter Details Date Type Department Care Team (Late st Contact Info) Description 02/05/2019 Telephone [facility] Reproductive Medicine & Infertility Center - [address] [address] Lanette Pagan RN Miscarriage Social History Tobacco Use Types Packs/Day [...] Refills Last Filled Start Date End Date miSOPROStol (CYTOTEC) 200 mcg tablet Insert 4 tabs high into the vagina. Repeat in 24 hours if no miscarriage occurs and MD approves 4 Tab 1 02/05/2019 9 documented in this encounter Miscellaneous Notes * Telephone Encounter - Lanette Pagan RN - 02/05/2019 8410 EDT PC from [facility] to discuss MAB discovered at her f/u ultrasound on 02/02. She had initially chosen to await natural miscarriage , however, she has found this to be emotionally intolerable and has elected to proceed with medical management using misoprostol. Instructions for use provided and emailed to patient. She plans to use transvaginally starting on 02/07 in the morning as she will have 2 days off starting then. Call back/bleeding precautions provided. She agreed to call the office on Monday 01/29 ( will page on-call) to report whether she had any bleeding or passed tissue, and to confirm if she should proceed with second dose. Rx sent to [facility] in [facility] per patient request. documented in this encounter Plan of Treatment Not on file documented as of this encounter Visit Diagnoses Not on filedocumented in this encounter Care Teams Professional Skater Relationship Specialty Start Date End Date [facility] Internal Medicine, Mp [address] [place] [address] PCP - General 11/03/15 10/01/23 documented as of this encounter
--- OUTSIDE RECORDS SUMMARY | 2024-09-16 01:37 | XMS_ITS | Encounter Summary ---
Author Organization [facility] Address [address] [place] [address] Care Team Providers Care Master Motorcycle Technician Name Role Phone Internal Medicine, Primary Care Provi darrel Reason for Visit * Reason Comments Infertility Encounter Details Date Type Department Care Team (Late st Contact Info) Description 04/10/2019 8:30 EDT Office Visit [facility] [address] [phone] Sue Hyman MD [address] [facility], [facility] [address] [place] [address] Encounter for assisted reproductive fertility cycle (Primary Dx) Discharge Disposition: Auto Discharge Social History Tobacco [...] procedure cycle-Z31.83[ICD-10-CM] documented in this encounter Discharge Disposition Disposition Code Departure Means Destination Auto Discharge documented in this encounter Progress Notes * Vonnie Vega - 04/10/2019 0830 EDT BASELINE FET VISIT Date: 04/10/2019 ID: [id number] y.o. y.o. with UEI for FET cycle # 1. We discussed at length the embryos that the patient had frozen and the patient decided to move forward with transfer of 2 embryos. Past Medical History: Diagnosis Date ??? Retained products of conception after miscarriage 02/10/2019 No past surgical history on file. OB History Para Term AB Living 0 0 0 0 0 0 SAB TAB Ectopic Multiple Live Births 0 0 0 0 0 No data found. GEN: alert and oriented, cooperative, no distress, appears stated age Psych: Exhibits appropriate mood and judgement. HEENT: Moist mucous membranes Resp: Good respiratory effort Abd:soft, non-tender/non-distended Ext: No CT/edema Baseline Scan 04/10/2019: 2.9 mm endometrium Quiescent ovaries PLAN Estrogen protocol for FET Transfer: 2 embryos. Patient partner not here for FET consent signing today despite request for himto be present at baseline. Requested he come to lining check to sign consents. The patient was discussed with Dr. Yenni Martinez MD Reproductive Endocrinology and Infertility Fellow Attestation statement: I discussed the patient with the Fellow at the time of the patient's visit. I agree with the findings and plan of care. Sue Hyman MD * Meliza Moise RN - 04/10/2019 0830 EDT Blood drawn via R AC using a butterfly needle. Pt tolerated procedure well. Pressure and 2x2 applied, secured with paper tape. SST tube(s) sent to the lab per order. documented in this encounter Plan of Treatment Not on file documented as of this encounter Procedures Procedure Name Priority Date/Time Associated Diagnosis Comments PROGESTERONE Routine 04/10/2019 9:28 EDT Encounter for assisted reproductive fertility cycle ESTRADIOL, ADULTS Routine 04/10/2019 9:2 8 EDT Encounter for assisted reproductive fertility cycle documented in this encounter Results * PROGESTERONE (04/10/2019 9:28 EDT) Progesterone 0.5 ng/ml 04/10/2019 10:21 EDT [facility] Comment: NON- FEMALES: follicular phase: ??<0.2-1.4 ng/mL luteal phase: 3.3-25.6 ng/ml postmenopausal: ??<0.2-0.7 ng/mL FEMALES: first trimester: 11.2-90.0 ng/ml second trimester: 25.6-89.4 ng/ml third trimester: 48.4-422.5 ng/ml ECTOPIC PREGNANCIES: consult pathologist Blood specimen (specimen) BLOOD SPECIMEN / Unknown 04/10/2019 9:28 EDT 04/10/2019 9:38 EDT us Sue Hyman MD CHEMISTRY & BLOOD GAS ORD ERABLES Final Result [facility] [address] [place] [id number] * ESTRADIOL, ADULTS (04/10/2019 9:28 EDT) Estradiol 15 pg/ml 04/10/2019 10:21 EDT [facility] Comment: By day in cycle relative to LH peak: Follicular Phase (-12 to -4 days): ??20-144 Midcycle (-3 to +2 days): ? 64-357 Luteal Phase (+4 to +12 days): ??56-214 Postmenopausal: ??0 - 32 Cross reactivity with fulvestrant could lead to falsely elevated estradiol results in patients treated with this drug. Blood specimen (specimen) BLOOD SPECIMEN / Unknown 04/10/2019 9:28 EDT 04/10/2019 9:38 EDT us Sue Hyman MD CHEMISTRY & BLOOD GAS ORD ERABLES Final Result [facility] [address] [place] [address] documented in this encounter Visit Diagnoses Diagnosis Encounter for assisted reproductive fertility cycle- Primary Encounter for assisted reproductive fertility procedure cycle documented in this encounter Discontinued Medications Medication Sig Discontinue Reason Start Date End Da te norgestimate-ethinyl estradiol (ORTHO-CYCLEN) 0.25-35 mg-mcg per tablet Take 1 Tab by mouth daily. 03/24/2019 04/10/2019 documented as of this encounter Care Teams Master Motorcycle Technician Relationship Specialty Start Date End Date [facility] Internal Medicine, [place] [address] [place] [address] PCP - General 11/03/15 10/01/23 documented as of this encounter
--- OUTSIDE RECORDS SUMMARY | 2024-09-16 01:37 | XMS_ITS | Encounter Summary ---
Author Organization [facility] Address [address] [place] [address] Care Team Providers Care Tare Worker Name Role Phone [facility] Internal Medicine, Primary Care Provi darrel Reason for Visit * Reason Onset Date Comments Results 05/10/2019 Encounter Details Date Type Department Care Team ([facility] st Contact Info) Description 05/10/2019 Telephone [facility] - [address] [address] Vonnie Martinez MD [address] [place] [address] [phone] Results Social History Tobacco Use Types Packs/Day [...] Miscellaneous Notes * Telephone Encounter - Vonnie Vega - 05/10/2019 0902 EDT LATE ENTRY FOR TC TUESDAY 05/08 AT 2:00PM TC to [facility] to discuss HCG results. Received fax that bHCG =3 today at [facility]. We discussed the result and that an HCG <5 is typically considered to be negative, or would mostlikely be indicative of a biochemical . However, given that this would be a highly desiredpregnancy and also that she went to the lab a day earlier than indicated by date of transfer, we dorecommend she stay on her progesterone and that we repeat HCG level on Saturday since we can't know un til we see what happens with her levels. I answered all questions and let her know our office is available for any further questions or emotional support. She was upset and stated that she did not think that she wants to get a repeat HCG level but I stressed the importance of doing this. Labs were faxed to [facility]. Plan will be to proceed to [facility] for repeat HCG Thursday 05/10. Vonnie Martinez MD Reproductive Endocrinology and Infertility Fellow documented in this encounter Plan of Treatment Not on file documented as of this encounter Visit Diagnoses Not on filedocumented in this encounter Care Teams Tare Worker Relationship Specialty Start Date End Date [facility] Internal Medicine, [address] [place] [address] PCP - General 11/03/15 10/01/23 documented as of this encounter
--- OUTSIDE RECORDS SUMMARY | 2024-09-16 01:37 | XMS_ITS | Encounter Summary ---
Author Organization [facility] Address [address] [place] [address] Care Team Providers Care Oracle Identity Management Consultant Name Role Phone [facility] Internal Medicine, Primary Care Provi darrel Encounter Details Date Type Department Care Team (Late st Contact Info) Description 03/31/2019 Orders Only [facility] - [facility] [address] [place] [address] Johanne Khan, MALIA [address] [place] [address] Social History Tobacco Use Types Packs/Day Years [...] into the muscle daily. 3 Vial 03/31/2019 0 estradiol (ESTRACE) 1 mg tablet Take 3 Tabs by mouth 2 times daily. 200 Tab 03/31/2019 0 leuprolide (LUPRON) 1 mg/0.2 mL injection Inject 20 units into the skin. Decrease to 10 units when directed. 2 Each 03/31/2019 1 documented in this encounter Progress Notes * Johanne Khan, MALIA - 03/31/2019 1400 EDT FET meds ordered today. 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 documented in this encounter Plan of Treatment Not on file documented as of this encounter Visit Diagnoses Not on filedocumented in this encounter Care Teams Oracle Identity Management Consultant Relationship Specialty Start Date End Date [facility] Internal Medicine, [place] [address] [place] [address] PCP - General 11/03/15 10/01/23 documented as of this encounter
--- OUTSIDE RECORDS SUMMARY | 2024-09-16 01:37 | XMS_ITS | Encounter Summary ---
Author Organization [facility] Address [address] [place] [address] Care Team Providers Care Stereo Equipment Repairer Name Role Phone [facility] Internal Medicine, Primary Care Provi darrel Reason for Visit * Reason Onset Date Comments Results 04/10/2019 Encounter Details Date Type Department Care Team (Late st Contact Info) Description 04/10/2019 Telephone [facility] - [address] [address] Lanette Pagan, MALIA Results Social History Tobacco Use Types Packs/Day [...] Telephone Encounter - Lanette Pagan, MALIA - 04/10/2019 1444 EDT Telephoned patient to review results of baseline labs and medication plan. Component Latest Ref Rng & Units 04/10/2019 Progesterone ng/ml 0.5 Estradiol pg/ml 15 Advised patient to decrease Lupron to 10 units on the am of 04/12, and begin po estrace tablets that day . Next step is E2 on 04/18- order placed at [facility] . Discussed with Dr Hyman. Patient confirmed understanding of plan. documented in this encounter Plan of Treatment Not on file documented as of this encounter Results * ESTRADIOL, ADULTS (04/18/2019 7:49 EDT) [facility] Signature Estradiol 128 pg/ml 04/18/2019 9:00 EDT [facility] Comment: By day in cycle [...] & BLOOD GAS ORD ERABLES Final Result [facility] [address] [place] [address] documented in this encounter Visit Diagnoses Diagnosis Encounter for assisted reproductive fertility cycle- Primary Encounter for assisted reproductive fertility procedure cycle documented in this encounter Care Teams Stereo Equipment Repairer Relationship Specialty Start Date End Date [facility] Internal Medicine, [place] [address] [place] [address] PCP - General 11/03/15 10/01/23 documented as of this encounter
--- OUTSIDE RECORDS SUMMARY | 2024-09-16 01:37 | XMS_ITS | Encounter Summary ---
Author Organization [facility] Address [address] [place] [address] Care Team Providers Care Documentation Nurse Name Role Phone Internal Medicine, Primary Care Provi darrel Encounter Details Date Type Department Care Team (Late st Contact Info) Description 04/21/2019 8:49 EDT - 04/21/2019 23:59 EDT Hospital Encounter [facility] [address] [place] [address] Maryan Jameson MD [address] [facility] [address] [place] [address] Discharge Disposition: Auto Discharge Social [...] Auto Discharge Home documented in this encounter Plan of Treatment Not on file documented as of this encounter Visit Diagnoses Not on filedocumented in this encounter Care Teams Documentation Nurse Relationship Specialty Start Date End Date [facility] Internal Medicine, [place] [address] [place] [address] PCP - General 11/03/15 10/01/23 documented as of this encounter
--- OUTSIDE RECORDS SUMMARY | 2024-09-16 01:37 | XMS_ITS | Encounter Summary ---
Author Organization [facility] Address [address] [place] [address] Care Team Providers Care Metal Organ Pipe Maker Name Role Phone [facility] Internal Medicine, Primary Care Provi darrel Encounter Details Date Type Department Care Team (Late st Contact Info) Description 05/06/2019 Orders Only [facility] Reproductive Medicine & Infertility Center - [facility] [address] [place] [address] Johanne Khan, MALIA [address] [place] [address] examination or test, unconfirmed (Primary Dx) Social History Tobacco Use Types [...] as of this encounter Visit Diagnoses Diagnosis examination or test, unconfirmed- Primary documented in this encounter Care Teams Metal Organ Pipe Maker Relationship Specialty Start Date End Date [facility] Internal Medicine, [place] [address] [place] [address] PCP - General 11/03/15 10/01/23 documented as of this encounter
--- OUTSIDE RECORDS SUMMARY | 2024-09-16 01:37 | XMS_ITS | Encounter Summary ---
Author Organization [facility] Address [address] [place] [address] Care Team Providers Care Customer Project Manager Name Role Phone [facility] Internal Medicine, Primary Care Provi darrel Encounter Details Date Type Department Care Team (Late st Contact Info) Description 04/21/2019 Orders Only [facility] Reproductive Medicine & Infertility Center - [facility] [address] [place] [address] Johanne Khan, MALIA [address] [place] [address] Encounter for assisted reproductive fertility cycle (Primary [...] of this encounter Results * ESTRADIOL, ADULTS (04/21/2019 8:58 EDT) Estradiol 151 pg/ml 04/21/2019 11:59 EDT [facility] Comment: By day in cycle relative to LH peak: Follicular Phase (-12 to -4 days): ??20-144 Midcycle (-3 to +2 days): ? 64-357 Luteal Phase (+4 to +12 days): ??56-214 Postmenopausal: ??0 - 32 Cross reactivity with fulvestrant could lead to falsely elevated estradiol results in patients treated with this drug. Blood specimen (specimen) BLOOD SPECIMEN / Unknown 04/21/2019 8:58 EDT 04/21/2019 10:10 EDT Meliza Sena MD CHEMISTRY & BLOOD GAS ORDER SUNSHINE Final Result [facility] [address] [place] [address] documented in this encounter Visit Diagnoses Diagnosis Encounter for assisted reproductive fertility cycle- Primary Encounter for assisted reproductive fertility procedure cycle documented in this encounter Care Teams Customer Project Manager Relationship Specialty Start Date End Date [facility] Internal Medicine, [place] [address] [place], [place] [address] PCP - General 11/03/15 10/01/23 documented as of this encounter
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
--- OUTSIDE RECORDS SUMMARY | 2024-09-16 01:37 | XMS_ITS | Encounter Summary ---
Author Organization [facility] Address [address] [place] [address] Care Team Providers Care Director Business Systems Name Role Phone Internal Medicine, Primary Care Provi darrel Reason for Visit * Reason Comments Infertility Encounter Details Date Type Department Care Team (Late st Contact Info) Description 04/24/2019 8:45 EDT Office Visit [facility] Reproductive Medicine & Infertility Center [facility] [address] [place], [place] [id number] Sue Hyman MD [address] [facility], [address] [place] [address] Infertility, female, primary (Primary Dx) [...] documented in this encounter Progress Notes * Sue Hyman MD - 04/24/2019 0845 EDT Med day 14 of FET cycle. Endometrium adequate to start IM progesterone. Will start tonight instead of tomorrow, and reschedule day 5 FET frmo Tuesday 05/01 to 04/30 since Reanna has a work conflict on Saturday. Discussed with IVF lab and OK to proceed w this change. Sue Hyman MD documented in this encounter Plan of Treatment Not on file documented as of this encounter Visit Diagnoses Diagnosis Infertility, female, primary- Primary Female infertility of unspecified origin documented in this encounter Care Teams Director Business Systems Relationship Specialty Start Date End Date [facility] Internal Medicine, [facility] [address] [place] [address] PCP - General 11/03/15 10/01/23 documented as of this encounter
--- OUTSIDE RECORDS SUMMARY | 2024-09-16 01:37 | XMS_ITS | Encounter Summary ---
Author Organization [facility] Address [address] [place] [address] Care Team Providers Care Five Piece Expansion Maker Hand Name Role Phone [facility] Internal Medicine, Primary Care Provi darrel Encounter Details Date Type Department Care Team (Late st Contact Info) Description 04/21/[address] [facility] [address] [place] [address] 83 Manager Medicare, Outpatient Encounter for assisted reproductive fertility cycle (Primary [...] Date/Time Associated Diagnosis Comments ESTRADIOL, ADULTS Routine 04/21/2019 8:5 8 EDT Encounter for assisted reproductive fertility cycle documented in this encounter Results * ESTRADIOL, ADULTS (04/21/2019 8:58 EDT) Estradiol 151 pg/ml 04/21/2019 11:59 EDT [facility] Comment: By day in [...] & BLOOD GAS ORDER SUNSHINE Final Result [facility] [address] [place] [address] documented in this encounter Visit Diagnoses Diagnosis Encounter for assisted reproductive fertility cycle- Primary Encounter for assisted reproductive fertility procedure cycle documented in this encounter Care Teams Five Piece Expansion Maker Hand Relationship Specialty Start Date End Date [facility] Internal Medicine, [address] [address] [place] [address] PCP - General 11/03/15 10/01/23 documented as of this encounter
--- OUTSIDE RECORDS SUMMARY | 2024-09-16 01:37 | XMS_ITS | Encounter Summary ---
Author Organization [facility] Address [address] [place] [address] Care Team Providers Care Fire Controlman Name Role Phone [facility] Internal Medicine, Primary Care Provi darrel Reason for Visit * Reason Onset Date Comments Infertility 03/24/2019 Encounter Details Date Type Department Care Team (Late st Contact Info) Description 03/24/2019 Telephone [facility] Reproductive Medicine & Infertility [facility] - [facility] [address] [place] [address] Johanne Khan RN [address] [place] [address] Infertility Social History Tobacco Use Types Packs/Day [...] Telephone Encounter - Johanne Khan, RN - 03/24/2019 0814 EDT Call to Reanna to discuss FET scheduling. If FET scheduled on 05/01 (the last day of the up week), Reanna would only be on OCPs for ~14 days. If not clear at baseline, would be cancelled. If lining not adequate, would be cancelled. Can choose to move forward with this cycle, or continue OCPs and schedule transfer for May 28 or , which would offer more flexibility. Pt will discuss with partner and call back this week. documented in this encounter Plan of Treatment Not on file documented as of this encounter Visit Diagnoses Not on filedocumented in this encounter Care Teams Fire Controlman Relationship Specialty Start Date End Date [facility] Internal Medicine, [facility] [address] [place] [address] PCP - General 11/03/15 10/01/23 documented as of this encounter
--- OUTSIDE RECORDS SUMMARY | 2024-09-16 01:37 | XMS_ITS | Encounter Summary ---
Author Organization [facility] Address [address] [place] [address] Care Team Providers Care Research Chemist Name Role Phone [facility] Internal Medicine, Primary Care Provi darrel Reason for Visit * Reason Onset Date Comments Follow-up 02/09/2019 Encounter Details Date Type Department Care Team (Late st Contact Info) Description 02/09/2019 Telephone [facility] Reproductive Medicine & Infertility Center - [facility] [address] [place] [address] Johanne Khan RN [address] [place] [address] Follow-up Social History Tobacco Use Types Packs/Day [...] Telephone Encounter - Johanne Khan RN - 02/09/2019 1504 EDT Reanna called back to confirm US appt. 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 * Telephone Encounter - Johanne Khan RN - 02/09/2019 1238 EDT Called back, left message. Per MBP, needs US tomorrow, and can have PAUL in the office if needed. Scheduled for 08. Asked Reanna to call back if needs to reschedule or has questions. * Telephone Encounter - Johanne Khan RN - 02/09/2019 1049 EDT Reanna called to report that she had horrible cramping after both doses of miso, but not very much bleeding. Reports she passed two raisin sized pieces that could have been tissue. Only has bleeding when uses the toilet - a little pool of blood. Almost no bleeding on pad. Will confirm plan with MD and call back this afternoon. documented in this encounter Plan of Treatment Not on file documented as of this encounter Visit Diagnoses Not on filedocumented in this encounter Care Teams Research Chemist Relationship Specialty Start Date End Date [facility] Internal Medicine, [facility] [address] [place] [address] PCP - General 11/03/15 10/01/23 documented as of this encounter
--- OUTSIDE RECORDS SUMMARY | 2024-09-16 01:37 | XMS_ITS | Encounter Summary ---
Author Organization [facility] Address [address] [place] [address] Care Team Providers Care Music Engraver Name Role Phone Internal Medicine, Primary Care Provi darrel Reason for Visit * Reason Comments Follow-up Encounter Details Date Type Department Care Team (Late st Contact Info) Description 02/18/2019 13:45 EDT Office Visit [facility] Reproductive Medicine & Infertility Center - [address] [address] Maryan Jameson MD [address] [place] [address], [facility] [address] [place] [address] Female infertility, secondary (Primary Dx) Social History Tobacco Use Types [...] Reading Time Taken Comments Blood Pressure 110/70 02/18/2019 1352 EDT Pulse - - Temperature - - Respiratory Rate - - Oxygen Saturation - - Inhaled Oxygen Concentration - - Weight 59 kg (130 lb) 02/18/2019 1352 EDT Height 160 cm (5' 3) 02/18/2019 1352 EDT Body Mass Index 23.03 02/18/2019 1352 EDT documented in this encounter Functional Status [...] this encounter Progress Notes * Maryan Thompson MD - 02/18/2019 1343 EDT Images from the original note were not included. [facility] Women???[facility] Care [place]-Level [address] [facility] REPRODUCTIVE MEDICINE AND INFERTILITY CRYOPRESERVATION EMBRYO TRANSFER CYCLE CONSULT Problem List 1.) Cryopreserved embryos 2.) Recent miscarriage SUBJECTIVE: The patient is a 33 y.o. who recently underwent an office D+C for retained productions conception post treatment for an SAB post IVF ET with two embryos transferred. She had an 8 cell B+ and one lesser quality embryo. The couple can not financially proceed with another stimulated cycle thus she would liek to proceed with an FET with their two intermediate qualityday 5 embryos. Their cycle was notable for good stimulation (see below), good fertilization both with IVF and withICSI, but poor embryo quality. Of 13 embryos only one was 8 call B+, and thus they underwent a day 3 transfer rather than day 5 ET. Two embryos progressed to blastocyst and were cryopreserved. OBJECTIVE: BP 110/70 (BP Cuff Location: Right arm, Patient Position: Sitting, BP Cuff Sizes: Adult, regular) Ht 160 cm (63) Wt 59 kg (130 lb) BMI 23.03 kg/m?? IVF FLOWSHEET (USE FORM) 12/04/2018 12/11/2018 12/12/2018 12/14/2018 12/16/2018 12/16/2018 Checklist: LMP 89542 - - - - - Checklist: Lupron Start 36960 - - - - - Checklist: Cycle Type Lupron 1/2 - - - - - Checklist: Cycle Number 1 - - - - - Checklist: Plan (No Data) (No Data) (No Data) (No Data) (No Data) (No Data) Medications: RX Day Baseline 4 7 9 11 - Medications: RX Date 00328 [id number] 02923 [id number] - Medications: Use RX HMG Start - 1 1 1 1 - Medications: Use RX FSH - 2 1 - - - Labs: E2 16 410 1018 0067 - 4134 Labs: P4 0.4 - - 0.8 - 1.1 Uterus: Endometrial Thickness 1.9 - 7.8 10 13 - Uterus: Trilaminar No - Yes Yes Yes - Uterus: Endometrial Cavity Fluid No - No No No - Right Ovary: Follicle Size 1 - - 13 16 22.5 - Right Ovary: Follicle Size 2 - - 13 14 20 - Right Ovary: Follicle Size 3 - - 11 13 18 - Right Ovary: Follicle Size 4 - - 10 12 16 - Right Ovary: Follicle Size 5 - - - 12 16 - Right Ovary: Follicle Size 6 - - - 10 16 - Right Ovary: Follicle Size 7 - - - 10 16 - Right Ovary: Follicle Size 8 - - - - 15 - Right Ovary: Follicle Size 9 - - - - 14 - Right Ovary: Follicle Size 10 - - - - 10 - Right Ovary: Follicle <10MM 18 - 12 4 8 - Left Ovary: Follicle Size 11 - - 12 15 20 - Left Ovary: Follicle Size 12 - - 12 15 19 - Left Ovary: Follicle Size 13 - - 11 14 19 - Left Ovary: Follicle Size 15 - - 11 14 17 - Left Ovary: Follicle Size 16 - - 11 14 17 - Left Ovary: Follicle Size 18 - - 10 13 17 - Left Ovary: Follicle Size 19 - - 10 13 17 - Left Ovary: Follicle Size 20 - - 10 13 14 - Left Ovary: Follicle <10MM #2 15 - 11 (No Data) (No Data) - ASSESSMENT: 1.) Infertility-planning FET 2.) Cryopreserved embryos I had a [] minute visit with [...] may survive the freeze and thaw process. They have decided to maximize their chance for in each cycle and would like to start by thawing all embryos. They understand that the lab will continue to thaw embryos as survival allows in order to maximize their chance for . They are planning to transfer up to 2 embryos. Discussed options for next cycle with patient, including FET versus repeat fresh cycle. PLAN: 1.) FET per protocol 2.) MVI containing folic acid recommended documented in this encounter Plan of Treatment Not on file documented as of this encounter Visit Diagnoses Diagnosis Female infertility, secondary- Primary Female infertility of unspecified origin documented in this encounter Care Teams Music Engraver Relationship Specialty Start Date End Date [facility] Internal Medicine, [facility] [address] [place] [address] PCP - General 11/03/15 10/01/23 documented as of this encounter
--- OUTSIDE RECORDS SUMMARY | 2024-09-16 01:37 | XMS_ITS | Encounter Summary ---
Author Organization [facility] Address [address] [place] [address] Care Team Providers Care Paraplanner Name Role Phone Internal Medicine Primary Care Provi darrel Reason for Visit * Reason Onset Date Comments Coordination Of Care 04/27/2019 Encounter Details Date Type Department Care Team (Late st Contact Info) Description 04/27/2019 Telephone [facility] Reproductive Medicine & Infertility Center - [facility] [address] [place] [address] Vonnie Martinez MD [address] [place] [phone] Coordination Of Care Social History Tobacco Use [...] * Telephone Encounter - Vonnie Vega - 04/27/2019 1029 EDT TC to Reanna to discuss FET consent signing. VM left stating that if her partner is not going to be present for FET on he will need to come in earlier this week to sign FET consents. I let her know this is a prerequisite to the embryo being thawed for transfer on , as we had discussed at each visit this cycle (baseline, lining check). Requested call back to confirm receipt of this message and to set up time to sign consents with himif necessary. Vonnie Martinez MD Reproductive Endocrinology and Infertility Fellow documented in this encounter Plan of Treatment Not on file documented as of this encounter Visit Diagnoses Not on filedocumented in this encounter Care Teams Paraplanner Relationship Specialty Start Date End Date [facility] Internal Medicine, [facility] [address] [place] [address] PCP - General 11/03/15 10/01/23 documented as of this encounter
--- OUTSIDE RECORDS SUMMARY | 2024-09-16 01:37 | XMS_ITS | Encounter Summary ---
Author Organization [facility] Address [address] [place] [address] Care Team Providers Care B2B Account Executive Name Role Phone [facility] Internal Medicine, Primary Care Provi darrel Reason for Visit * Reason Onset Date Comments Results 05/11/2019 Encounter Details Date Type Department Care Team (Late st Contact Info) Description 05/11/2019 Telephone [facility] Reproductive Medicine & Infertility Center - [facility] [address] [place] [address] Johanne Khan RN [address] [place] [address] Results Social History Tobacco Use Types Packs/Day [...] Telephone Encounter - Johanne Khan, RN - 05/11/2019 0145 EDT Call to eRanna with hCG results from today at [facility]. HCG=1. Advised pt to d/c estrace and progesterone and allow for menses. Pt verbalized understanding. She has no further questions or concerns at this time, and she does not want to make an appointment to discuss next steps. documented in this encounter Plan of Treatment Not on file documented as of this encounter Visit Diagnoses Not on filedocumented in this encounter Care Teams B2B Account Executive Relationship Specialty Start Date End Date [facility] Internal Medicine, [facility] [address] [place] [address] PCP - General 11/03/15 10/01/23 documented as of this encounter
--- OUTSIDE RECORDS SUMMARY | 2024-09-16 01:37 | XMS_ITS | Encounter Summary ---
Author Organization [facility] Address [address] [place] [address] Care Team Providers Care Plant Protection Superintendent Name Role Phone [facility] Internal Medicine, Primary Care Provi darrel Reason for Visit * Reason Onset Date Comments Results 05/10/2019 Encounter Details Date Type Department Care Team (Late st Contact Info) Description 05/10/2019 Telephone [facility] Reproductive Medicine & Infertility Center - [address] [address] Eddie Gó[place] [id number] [address] Results Social History Tobacco Use [...] encounter Miscellaneous Notes * Telephone Encounter - Eddie Gómez MD - 05/10/2019 1402 EDT Phone call to patient, who advised that she could not get her hCG drawn today as the lab had closedwhen she went in. She plans to have it drawn tomorrow, we will notify of her the results afterwards. documented in this encounter Plan of Treatment Not on file documented as of this encounter Visit Diagnoses Not on filedocumented in this encounter Care Teams Plant Protection Superintendent Relationship Specialty Start Date End Date [facility] Internal Medicine, [place] [address] [place] [address] PCP - General 11/03/15 10/01/23 documented as of this encounter
--- OUTSIDE RECORDS SUMMARY | 2024-09-16 01:38 | XMS_ITS | Encounter Summary ---
Author Organization [facility] Address [address] [place] [address] Care Team Providers Care Piano And Organ Refinisher Name Role Phone [facility] Internal Medicine, Primary Care Provi darrel Encounter Details Date Type Department Care Team (Latest Contact Info) Description 01/01/2019 9:27 EDT - 01/01/2019 9:30 EDT Hospital Encounter [address] [address] Gary Vega MD [address] [place] [address] [address] Discharge Disposition: Home or Self Care Social [...] documented in this encounter Discharge Diagnoses Diagnosis Z32.00 Encounter for test, result unknown-Z32.00[ICD-10-CM] documented in this encounter Medications at Time of Discharge cabergoline (DOSTINEX) 0.5 mg tablet Take one tablet daily for 7 days 7 tablet 12/18/2018 9 choriogonadotropin keke (OVIDREL) 250 mcg/0.5 mL injection solution Inject 250 mcg into the skin once for 1 dose. Inject as directed by physician 1 Syringe 06/06/2018 9 choriogonadotropin keke (OVIDREL) 250 mcg/0.5 mL injection solution Inject 250 mcg into the skin daily. 1 Syringe 2 05/27/2018 9 chorionic gonadotropin, human (PREGNYL) 10,000 unit injection Inject 10,000 Units into the skin once for 1 dose. Use once when directed. 1 each 11/06/2018 9 Follitropin Keke (GONAL-F) 1,050 unit recon soln Inject 225 Units into the skin daily. 3 each 11/06/2018 9 letrozole (FEMARA) 2.5 mg tablet Take 1 Tab by mouth daily. 5 Tab 08/21/2018 9 leuprolide (LUPRON) 1 mg/0.2 mL injection Inject 10 units into the skin. Decrease as directed. 1 each 11/06/2018 9 menotropins (MENOPUR) 75 unit solution for subcutaneous injection Inject 75 Units into the skin daily. 15 vial 11/06/2018 9 norgestimate-ethin yl estradiol (ORTHO-CYCLEN, 28,) 0.25-35 mg-mcg per tablet Take 1 tablet by mouth daily. Take continuously, discard inactive pills and immediately open new pack 28 tablet 11/18/2018 9 progesterone in oil 50 mg/mL injection Inject 1 mL into the muscle daily. 2 vial 11/06/2018 9 documented as of this encounter Discharge Disposition Disposition Code Departure Means Destination Home or Self Care documented in this encounter Plan of Treatment Not on file documented as of this encounter Visit Diagnoses Not on filedocumented in this encounter Care Teams Piano And Organ Refinisher Relationship Specialty Start Date End Date [facility] Internal Medicine, [facility] [address] [place] [address] PCP - General 11/03/15 10/01/23 documented as of this encounter
--- OUTSIDE RECORDS SUMMARY | 2024-09-16 01:38 | XMS_ITS | Encounter Summary ---
Author Organization [facility] Address [address] [place] [address] Care Team Providers Care Lockstitch Front Maker Name Role Phone [facility] Internal Medicine, Primary Care Provi darrel Reason for Visit * Reason Comments Infertility Baseline with mock Encounter Details Date Type Department Care Team (Latest Contact Info) Description 12/04/2018 8:00 EDT Office Visit [facility] Reproductive Medicine & Infertility Center - [address] [phone] Gary Vega MD [address] [place] [address] [address] Encounter for assisted reproductive fertility procedure cycle (Primary Dx) Discharge Disposition: Auto Discharge [...] Sign Reading Time Taken Comments Blood Pressure 120/84 12/04/2018 0810 EDT Pulse - - Temperature - - Respiratory Rate - - Oxygen Saturation - - Inhaled Oxygen Concentration - - Weight 60.8 kg (134 lb) 12/04/2018 0810 EDT Height 160 cm (5' 3) 12/04/2018 0810 EDT Body Mass Index 23.74 12/04/2018 0810 EDT documented in this encounter Functional Status [...] documented in this encounter Progress Notes * Jeremias Maldonado MD - 12/04/2018 0800 EDT BASELINE IVF VISIT Date: 12/04/2018 ID: [id number] y.o. with UEI for fresh IVF cycle # 1. Antimullerian Hormone 6.93 ng/mL AFC 33 PMH: denies ?? PSH: denies ?? FH: GM had PE and immediately . OB History Para Term AB Living 0 0 0 0 0 0 SAB TAB Ectopic Multiple Live Births 0 0 0 0 0 Patient Vitals for the past 24 hrs: BP Height Weight 12/04/18 0810 120/84 160 cm (63) 60.8 kg (134 lb) BMI 23.7 GEN: alert and oriented, cooperative, no distress, appears stated age Psych: Exhibits appropriate mood and judgement. HEENT: NC/AT, No lumps, bumps, lesions. Mucous membranes are moist and pink. Neck: Supple, non-tender, trachea midline. No lymphadenopathy or thyromegaly appreciated. CV:RRR Resp:CTAB Abd:soft, non-tender/non-distended; bowel sounds normal; no masses, no organomegaly appreciated Ext: No clubbing, cyanosis, or edema Baseline Scan: 1.9 mm endometrium Trial transfer: Trial catheter 5.5 cm fundal length 5 cm transfer length. Quiescent ovaries PLAN Stimulation: Lupron 10:5 Gn 3/ for 3 days then 2/1 Fertilize: all ICSI: ICSI SPLIT AH: at the discretion of the embryologist Transfer: 1-2 embryos depending on quality and day of transfer We reviewed the risks of egg retrieval: infection, bleeding, rare risk of damage to surrounding organs (bowel, bladder, blood vessels) with rare possibility of need for diagnostic surgery or blood transfusion. Risk of few or no eggs retrieved. All questions answered, consent signed. Check E2 today, if suppressed will start GN injections on 12/06/18. The patient was discussed with Dr. Vega. Dr. Jeremias Maldonado MD Reproductive Endocrinology & Infertility Fellow * Gary Vega MD, MD - 12/04/2018 0800 EDT Attestation statement: I discussed the patient with the resident/fellow at the time of the visit. Iagree with the findings and the plan of care documented in the resident's/fellow's note. Gary Vega MD Reproductive Endocrinology and Infertility documented in this encounter Plan of Treatment Not on file documented as of this encounter Results * PROGESTERONE (12/04/2018 9:17 EDT) Progesterone 0.4 ng/ml 12/04/2018 11:27 EDT [facility] Comment: NON- FEMALES: follicular phase: ??<0.2-1.4 ng/mL luteal phase: 3.3-25.6 ng/ml postmenopausal: ??<0.2-0.7 ng/mL FEMALES: first trimester: 11.2-90.0 ng/ml second trimester: 25.6-89.4 ng/ml third trimester: 48.4-422.5 ng/ml ECTOPIC PREGNANCIES: consult pathologist Blood specimen (specimen) BLOOD SPECIMEN / Unknown 12/04/2018 9:17 EDT 12/04/2018 10:16 EDT us Gary Vega MD CHEMISTRY & BLOOD GAS ORDERA BLES Final Result [facility] [address] [place] [address] * ESTRADIOL, ADULTS (12/04/2018 9:17 EDT) Estradiol 16 pg/ml 12/04/2018 11:27 EDT [facility] Comment: By day in cycle relative to LH peak: Follicular Phase (-12 to -4 days): ??20-144 Midcycle (-3 to +2 days): ? 64-357 Luteal Phase (+4 to +12 days): ??56-214 Postmenopausal: ??0 - 32 Cross reactivity with fulvestrant could lead to falsely elevated estradiol results in patients treated with this drug. Blood specimen (specimen) BLOOD SPECIMEN / Unknown 12/04/2018 9:17 EDT 12/04/2018 10:16 EDT us Gary Vega MD CHEMISTRY & BLOOD GAS ORDERA BLES Final Result [facility] [address] [place] [address] documented in this encounter Visit Diagnoses Diagnosis Encounter for assisted reproductive fertility procedure cycle- Primary documented in this encounter Care Teams Lockstitch Front Maker Relationship Specialty Start Date End Date [facility] Internal Medicine, [place] [address] [place] [address] PCP - General 11/03/15 10/01/23 documented as of this encounter
--- OUTSIDE RECORDS SUMMARY | 2024-09-16 01:38 | XMS_ITS | Encounter Summary ---
Author Organization [facility] Address [address] [place] [address] Care Team Providers Care Inside Steward/Stewardess Name Role Phone [facility] Internal Medicine, Primary Care Provi darrel Reason for Referral * FITTINGS TIGHTENER (Routine) - Closed Specialty Diagnoses / Procedures Referred By Serene martinez Referred To Contact Diagnoses Encounter for assisted reproductive fertility cycle Procedures SECURITY OPERATIONS CENTER OPERATOR US EXAM Micah Phillip MD Phone: tel: fax: Referral ID Status Reason Start Date Expiration Date Visits Re quested Visits Authorized [id number] Closed 12/14/2018 1 1 Reason for Visit * Reason Onset Date Comments Results 12/14/2018 Encounter Details Date Type Department Care Team (Late st Contact Info) Description 12/14/2018 Telephone [facility] Reproductive Medicine & Infertility Center - [address] [phone] Micah Phillip MD [address] [facility] [place] [address] [place] [phone] Results Social History Tobacco Use Types Packs/Day [...] Telephone Encounter - Micah Phillip MD - 12/14/2018 1024 EDT Images from the original note were not included. TELEPHONE CALL TC to Reanna with results from today and IVF plan. Component Latest Ref Rng & Units 12/12/2018 12/14/2018 Estradiol pg/ml 1,018 2,207 Progesterone ng/ml 0.6 0.8 Instructed to continue same dose of GN (1/0) Gonal-F 75 units Repeat USE Saturday. Patient desires as early as possible and will get her labs drawn prior to coming up for her US. I informed her that we would be able to schedule her USE for either 0745 or 0800, but would call to confirm tomorrow. Patient verbalized understanding. Discussed with Dr. Thompson. Electronically signed by: Micah Phillip MD, PGY5 Fellow Reproductive Endocrinology & Infertility [facility] 12/14/2018 / 10:24 documented in this encounter Plan of Treatment Not on file documented as of this encounter Procedures Procedure Name Priority Date/Time Associated Diagnosis Comments SECURITY OPERATIONS CENTER OPERATOR US EXAM Routine 12/16/2018 8:09 EDT Encounter for assisted reproductive fertility cycle documented in this encounter Results * ESTRADIOL, ADULTS (12/16/2018 8:30 EDT) Estradiol 4,134 pg/ml 12/16/2018 9:57 EDT [facility] Comment: By day in cycle relative to LH peak: Follicular Phase (-12 to -4 days): ??20-144 Midcycle (-3 to +2 days): ? 64-357 Luteal Phase (+4 to +12 days): ??56-214 Postmenopausal: ??0 - 32 Cross reactivity with fulvestrant could lead to falsely elevated estradiol results in patients treated with this drug. Blood specimen (specimen) BLOOD SPECIMEN / Unknown 12/16/2018 8:30 EDT 12/16/2018 8:33 EDT Micah Phillip MD CHEMISTRY & BLOOD GAS ORDE RABLES Final Result Performing Organization Address [facility] Co de Phone Number [facility] [address] [place] [address] * PROGESTERONE (12/16/2018 8:30 EDT) Progesterone 1.1 ng/ml 12/16/2018 9:57 EDT [facility] Comment: NON- FEMALES: follicular phase: ??<0.2-1.4 ng/mL luteal phase: 3.3-25.6 ng/ml postmenopausal: ??<0.2-0.7 ng/mL FEMALES: first trimester: 11.2-90.0 ng/ml second trimester: 25.6-89.4 ng/ml third trimester: 48.4-422.5 ng/ml ECTOPIC PREGNANCIES: consult pathologist Blood specimen (specimen) BLOOD SPECIMEN / Unknown 12/16/2018 8:30 EDT 12/16/2018 8:33 EDT Micah Phillip MD CHEMISTRY & BLOOD GAS ORDE RABLINDSAY Final Result Performing Organization Address [facility] Co de Phone Number [facility] [address] [place] [address] * SECURITY OPERATIONS CENTER OPERATOR US EXAM (12/16/2018 8:09 EDT) Anatomical Region Laterality Modality Other 12/16/2018 8:09 EDT 12/16/2018 9:51 EDT Narrative 12/16/2018 9:51 EDT Indication IVF Cycle #1, OM#11, GN 1/0 Unexplained infertility. Uterus ======= Uterus: ?Appears normal Uterus position: ?? Anteverted Uterine malformations: None Myometrium: ?Appears normal Endometrium: ?? Trilaminar endometrium Endometrial thickness, total ?? 13.1 mm Right Ovary Rt ovary: ??Visualized Outline: ?? Smooth Rt ovary morphology: ?? Multifollicular Rt ovarian follicle(s): ?Follicles identified D1 27.5 mm D2 16.4 mm D3 23.6 mm Mean ?? 22.5 mm Vol ?5.573 cm cubed D1 24.3 mm D2 10.3 mm D3 26.0 mm Mean ?? 20.2 mm Vol ?3.407 cm cubed D1 17.8 mm D2 16.4 mm D3 20.5 mm Mean ?? 18.2 mm Vol ?3.133 cm cubed D1 21.0 mm D2 11.8 mm D3 16.8 mm Mean ?? 16.5 mm Vol ?2.180 cm cubed D1 19.5 mm D2 14.7 mm D3 14.1 mm Mean ?? 16.1 mm Vol ?2.116 cm cubed D1 16.3 mm D2 15.9 mm D3 14.9 mm Mean ?? 15.7 mm Vol ?2.022 cm cubed D1 15.7 mm D2 14.1 mm D3 16.9 mm Mean ?? 15.6 mm Vol ?1.959 cm cubed D1 15.8 mm D2 15.2 mm D3 13.9 mm Mean ?? 15.0 mm Vol ?1.748 cm cubed D1 12.7 mm D2 12.9 mm D3 16.1 mm Mean ?? 13.9 mm Vol ?1.381 cm cubed D1 8.0 mm D2 9.8 mm D3 12.0 mm Mean ?? 9.9 mm Vol ?0.493 cm cubed Rt ovary other findings: ?? 8 follicles < 10 mm Left Ovary Lt ovary: ??Visualized Outline: ?? Smooth Lt ovary morphology: ?? normal Lt ovarian follicle(s): ?Follicles identified D1 21.1 mm D2 17.3 mm D3 21.9 mm Mean ?? 20.1 mm Vol ?4.186 cm cubed D1 23.2 mm D2 12.4 mm D3 22.3 mm Mean ?? 19.3 mm Vol ?3.359 cm cubed D1 20.2 mm D2 20.2 mm D3 15.3 mm Mean ?? 18.6 mm Vol ?3.269 cm cubed D1 13.6 mm D2 14.9 mm D3 22.9 mm Mean ?? 17.1 mm Vol ?2.430 cm cubed D1 21.3 mm D2 11.5 mm D3 17.9 mm Mean ?? 16.9 mm Vol ?2.296 cm cubed D1 19.5 mm D2 15.3 mm D3 15.8 mm Mean ?? 16.9 mm Vol ?2.468 cm cubed D1 20.0 mm D2 11.7 mm D3 18.9 mm Mean ?? 16.9 mm Vol ?2.316 cm cubed D1 16.7 mm D2 12.9 mm D3 12.1 mm Mean ?? 13.9 mm Vol ?1.365 cm cubed D1 14.6 mm D2 10.8 mm D3 14.5 mm Mean ?? 13.3 mm Vol ?1.197 cm cubed D1 15.6 mm D2 10.9 mm D3 12.7 mm Mean ?? 13.1 mm Vol ?1.131 cm cubed Lt ovary other findings: ?? 2 follicles < 10 mm Cul de Sac Normal. Free fluid visualized (trace). Impression Limited Transvaginal Ultrasound, Baseline -87725 Trilaminar endometrium measuring 13 mm Ovaries stimulated bilaterally as measured above Trace free fluid in the cul de sac. Follow-up Trigger tonight for oocyte harvest. Comment ========= Results discussed with patient. DATE OF SERVICE: 12/16/2018 Procedure Note Maryan Thompson MD - 12/16/2018 Indication IVF Cycle #1, OM#11, GN 1/0 Unexplained infertility. Uterus ======= Uterus: Appears normal Uterus position: Anteverted Uterine malformations: None Myometrium: Appears normal Endometrium: Trilaminar endometrium Endometrial thickness, total 13.1 mm Right Ovary Rt ovary: Visualized Outline: Smooth Rt ovary morphology: Multifollicular Rt ovarian follicle(s): Follicles identified D1 27.5 mm D2 16.4 mm D3 23.6 mm Mean 22.5 mm Vol 5.573 cm cubed D1 24.3 mm D2 10.3 mm D3 26.0 mm Mean 20.2 mm Vol 3.407 cm cubed D1 17.8 mm D2 16.4 mm D3 20.5 mm Mean 18.2 mm Vol 3.133 cm cubed D1 21.0 mm D2 11.8 mm D3 16.8 mm Mean 16.5 mm Vol 2.180 cm cubed D1 19.5 mm D2 14.7 mm D3 14.1 mm Mean 16.1 mm Vol 2.116 cm cubed D1 16.3 mm D2 15.9 mm D3 14.9 mm Mean 15.7 mm Vol 2.022 cm cubed D1 15.7 mm D2 14.1 mm D3 16.9 mm Mean 15.6 mm Vol 1.959 cm cubed D1 15.8 mm D2 15.2 mm D3 13.9 mm Mean 15.0 mm Vol 1.748 cm cubed D1 12.7 mm D2 12.9 mm D3 16.1 mm Mean 13.9 mm Vol 1.381 cm cubed D1 8.0 mm D2 9.8 mm D3 12.0 mm Mean 9.9 mm Vol 0.493 cm cubed Rt ovary other findings: 8 follicles < 10 mm Left Ovary Lt ovary: Visualized Outline: Smooth Lt ovary morphology: normal Lt ovarian follicle(s): Follicles identified D1 21.1 mm D2 17.3 mm D3 21.9 mm Mean 20.1 mm Vol 4.186 cm cubed D1 23.2 mm D2 12.4 mm D3 22.3 mm Mean 19.3 mm Vol 3.359 cm cubed D1 20.2 mm D2 20.2 mm D3 15.3 mm Mean 18.6 mm Vol 3.269 cm cubed D1 13.6 mm D2 14.9 mm D3 22.9 mm Mean 17.1 mm Vol 2.430 cm cubed D1 21.3 mm D2 11.5 mm D3 17.9 mm Mean 16.9 mm Vol 2.296 cm cubed D1 19.5 mm D2 15.3 mm D3 15.8 mm Mean 16.9 mm Vol 2.468 cm cubed D1 20.0 mm D2 11.7 mm D3 18.9 mm Mean 16.9 mm Vol 2.316 cm cubed D1 16.7 mm D2 12.9 mm D3 12.1 mm Mean 13.9 mm Vol 1.365 cm cubed D1 14.6 mm D2 10.8 mm D3 14.5 mm Mean 13.3 mm Vol 1.197 cm cubed D1 15.6 mm D2 10.9 mm D3 12.7 mm Mean 13.1 mm Vol 1.131 cm cubed Lt ovary other findings: 2 follicles < 10 mm Cul de Sac Normal. Free fluid visualized (trace). Impression Limited Transvaginal Ultrasound, Baseline -35158 Trilaminar endometrium measuring 13 mm Ovaries stimulated bilaterally as measured above Trace free fluid in the cul de sac. Follow-up Trigger tonight for oocyte harvest. Comment ========= Results discussed with patient. DATE OF SERVICE: 12/16/2018 us Micah Phillip MD IMG US SECURITY OPERATIONS CENTER OPERATOR ORDERABLES Leticia l Result documented in this encounter Visit Diagnoses Diagnosis Encounter for assisted reproductive fertility cycle- Primary Encounter for assisted reproductive fertility procedure cycle documented in this encounter Care Teams Inside Steward/Stewardess Relationship Specialty Start Date End Date [facility] Internal Medicine, [facility] [address] [place] [address] PCP - General 11/03/15 10/01/23 documented as of this encounter
--- OUTSIDE RECORDS SUMMARY | 2024-09-16 01:38 | XMS_ITS | Encounter Summary ---
Author Organization [facility] Address [address] [place] [address] Care Team Providers Care Shop Girl Name Role Phone [facility] Internal Medicine, Primary Care Provi darrel Encounter Details Date Type Department Care Team (Late st Contact Info) Description 11/06/2018 Documentation Visit [facility] Reproductive Medicine & Infertility Center - [facility] [address] [place] [address] Johanne Khan, MALIA [address] [place] [address] Social History Tobacco Use Types Packs/Day Years [...] the muscle daily. 2 vial 11/06/2018 9 chorionic gonadotropin, human (PREGNYL) 10,000 unit injection Inject 10,000 Units into the skin once for 1 dose. Use once when directed. 1 each 11/06/2018 9 menotropins (MENOPUR) 75 unit solution for subcutaneous injection Inject 75 Units into the skin daily. 15 vial 11/06/2018 9 Follitropin Cliff (GONAL-F) 1,050 unit recon soln Inject 225 Units into the skin daily. 3 each 11/06/2018 9 leuprolide (LUPRON) 1 mg/0.2 mL injection Inject 10 units into the skin. Decrease as directed. 1 each 11/06/2018 9 documented in this encounter Progress Notes * Johanne Khan, RN - 11/06/2018 1103 EDT IVF meds ordered to [facility] pharmacy today after pt paid global fee. Briefly met with Reanna to review how to mix menopur and gonal-F. Reanna reports she is comfortable mixing and administering all of her medications. Injections supplies given today. documented in this encounter Plan of Treatment Not on file documented as of this encounter Visit Diagnoses Not on filedocumented in this encounter Care Teams Shop Girl Relationship Specialty Start Date End Date [facility] Internal Medicine, [facility] [address] [place] [address] PCP - General 11/03/15 10/01/23 documented as of this encounter
--- OUTSIDE RECORDS SUMMARY | 2024-09-16 01:38 | XMS_ITS | Encounter Summary ---
Author Organization [facility] Address [address] [place] [address] Care Team Providers Care Import Dispatcher Name Role Phone Internal Medicine, Primary Care Provi darrel Reason for Visit * Reason Onset Date Comments Results 09/03/2018 Pap smear Encounter Details Date Type Department Care Team (Late st Contact Info) Description 09/03/2018 Telephone [facility] Reproductive Medicine & Infertility Center - [address] [address] [place] [address] [place] [address] Results (Pap smear) Social History Tobacco Use Types Packs/Day Years [...] Telephone Encounter - Micah Phillip MD - 09/03/2018 1229 EST Images from the original note were not included. TELEPHONE CALL Called patient with her Pap smear results from 09/01/18. Negative cytology and negative HPV. Patient inquired about whether or not to keep IVF Intake appt scheduled for 09/09/18. Instructed patient that keeping this appointment despite waiting on IUI result would guarantee her the earliest availability to get assigned an IVF spot in the upcoming months. Patient agrees to keep appointment next week. No other questions at this time. Electronically signed by: Micah Phillip MD, PGY5 Fellow Reproductive Endocrinology & Infertility [facility] 09/03/2018 / 12:29 documented in this encounter Plan of Treatment Not on file documented as of this encounter Visit Diagnoses Not on filedocumented in this encounter Care Teams Import Dispatcher Relationship Specialty Start Date End Date [facility] Internal Medicine, [place] [address] [place] [address] PCP - General 11/03/15 10/01/23 documented as of this encounter
--- OUTSIDE RECORDS SUMMARY | 2024-09-16 01:38 | XMS_ITS | Encounter Summary ---
Author Organization [facility] Address [address] [place] [address] Care Team Providers Care Relief Operator Name Role Phone Internal Medicine, Primary Care Provi darrel Reason for Visit * Reason Onset Date Comments Results 12/19/2018 Encounter Details Date Type Department Care Team (Late st Contact Info) Description 12/19/[address] [facility] - [address] [phone] Jeremias Maldonado MD [address] [place] [phone] Results Social History Tobacco Use Types Packs/Day [...] encounter Miscellaneous Notes * Telephone Encounter - Jeremias Maldonado MD - 12/19/2018 1335 EDT Telephoned patient to discuss her fertilization results. She reports that she is doing well. She isback at work and has had some lower abdominal pain. She denies urinary or bowel s/s. She has not taken her weight today and does not feel like her abdominal girth is wider. She is tolerating a regular diet. She has a good UOP and is passing flatus. Day 0: Total number of eggs: 14 10 x MII -> ICSI 4 x IVF Day 1: 9 x 2PN (ICSI) 4 x 2PN (IVF) DW patient we will call in 2 days to review further culture results. OHSS precautions reviewed the patient, high protein salt diet, monitor weight and UOP. Call with concerns, and complete the course of Cabergoline. The patient was discussed with Dr. Vega. Dr. Jeremias Maldonado MD Reproductive Endocrinology & Infertility Fellow documented in this encounter Plan of Treatment Not on file documented as of this encounter Visit Diagnoses Not on filedocumented in this encounter Care Teams Relief Operator Relationship Specialty Start Date End Date [facility] Internal Medicine, [address] [place] [address] PCP - General 11/03/15 10/01/23 documented as of this encounter
--- OUTSIDE RECORDS SUMMARY | 2024-09-16 01:38 | XMS_ITS | Encounter Summary ---
Author Organization [facility] Address [address] [place] [address] Care Team Providers Care Curriculum Designer Name Role Phone Internal Medicine, Primary Care Provi darrel Encounter Details Date Type Department Care Team (Late st Contact Info) Description 12/14/2018 Results Only Imaging [facility] - [address] [phone] Sue Hyman MD [address] [place] [address], [address] [place] [address] Social History Tobacco Use Types [...] Procedure Name Priority Date/Time Associated Diagnosis Comments MUSIC ENGINEER US EXAM 12/14/2018 9:48 EDT documented in this encounter Results * MUSIC ENGINEER US EXAM (12/14/2018 9:48 EDT) Anatomical Region Laterality Modality Other 12/14/2018 9:48 EDT 12/17/2018 8:13 EDT Narrative 12/17/2018 8:13 EDT Indication IVF Cycle #1, OM#9, GN 1/0 Unexplained infertility. Uterus ======= Uterus: ?Appears normal Uterus position: ?? Anteverted Endometrium: ?? Trilaminar endometrium Endometrial thickness, total ?? 10.2 mm Polyps: ?Polyps identified D1 3.4 mm D2 4.7 mm Mean ?? 4.1 mm Right Ovary Rt ovary: ??Stimulated w/ multiple follicles consistent w/ hormonal therapy Rt ovarian follicle(s): ?Follicles identified D1 13.8 mm D2 13.2 mm D3 19.9 mm Mean ?? 15.6 mm Vol ?1.895 cm cubed D1 15.7 mm D2 10.4 mm D3 17.2 mm Mean ?? 14.4 mm Vol ?1.470 cm cubed D1 13.2 mm D2 10.3 mm D3 15.5 mm Mean ?? 13.0 mm Vol ?1.107 cm cubed D1 14.2 mm D2 11.2 mm D3 11.6 mm Mean ?? 12.3 mm Vol ?0.962 cm cubed D1 12.6 mm D2 11.2 mm D3 13.0 mm Mean ?? 12.3 mm Vol ?0.957 cm cubed D1 9.5 mm D2 10.7 mm D3 10.9 mm Mean ?? 10.3 mm Vol ?0.574 cm cubed D1 9.6 mm D2 10.6 mm D3 10.0 mm Mean ?? 10.1 mm Vol ?0.535 cm cubed Rt ovary other findings: ?? 4 follicles < 10 mm Left Ovary Lt ovary: ??Stimulated w/ multiple follicles consistent w/ hormonal therapy Lt ovarian follicle(s): ?Follicles identified D1 14.0 mm D2 12.9 mm D3 18.1 mm Mean ?? 15.0 mm Vol ?1.711 cm cubed D1 15.8 mm D2 17.2 mm D3 11.5 mm Mean ?? 14.8 mm Vol ?1.639 cm cubed D1 14.5 mm D2 16.3 mm D3 11.0 mm Mean ?? 13.9 mm Vol ?1.357 cm cubed D1 9.3 mm D2 14.3 mm D3 17.7 mm Mean ?? 13.7 mm Vol ?1.223 cm cubed D1 15.3 mm D2 12.9 mm D3 12.9 mm Mean ?? 13.7 mm Vol ?1.324 cm cubed D1 11.7 mm D2 11.4 mm D3 15.8 mm Mean ?? 13.0 mm Vol ?1.108 cm cubed D1 15.0 mm D2 9.8 mm D3 13.7 mm Mean ?? 12.9 mm Vol ?1.060 cm cubed D1 13.9 mm D2 12.5 mm D3 11.2 mm Mean ?? 12.5 mm Vol ?1.020 cm cubed D1 14.3 mm D2 12.2 mm D3 10.9 mm Mean ?? 12.4 mm Vol ?0.990 cm cubed D1 13.6 mm D2 10.9 mm D3 11.9 mm Mean ?? 12.1 mm Vol ?0.922 cm cubed D1 10.7 mm D2 12.7 mm D3 11.8 mm Mean ?? 11.7 mm Vol ?0.836 cm cubed D1 11.4 mm D2 6.9 mm D3 12.8 mm Mean ?? 10.4 mm Vol ?0.527 cm cubed Lt ovary other findings: ?? 4 follicles < 10 mm [place] Sac Appears normal. No free fluid visualized. Impression Limited transvaginal follicular ultrasound-18882 1. Trilaminar endometrium measuring 10 mm 2. Small lower uterine segment polyp re-measured and stable at 3-4 mm 3. ROV and LINDA stimulated with follicles measured as above. 4. No free fluid int he cul de sac. Follow-up Labs today (E2/P4). Plan pending results. Comment ========= Ultrasound findings discussed w/patient. DATE OF SERVICE: 12/14/2018 Procedure Note Meliza Sena MD - 12/17/2018 Indication IVF Cycle #1, OM#9, GN 1/0 Unexplained infertility. Uterus ======= Uterus: Appears normal Uterus position: Anteverted Endometrium: Trilaminar endometrium Endometrial thickness, total 10.2 mm Polyps: Polyps identified D1 3.4 mm D2 4.7 mm Mean 4.1 mm Right Ovary Rt ovary: Stimulated w/ multiple follicles consistent w/ hormonal therapy Rt ovarian follicle(s): Follicles identified D1 13.8 mm D2 13.2 mm D3 19.9 mm Mean 15.6 mm Vol 1.895 cm cubed D1 15.7 mm D2 10.4 mm D3 17.2 mm Mean 14.4 mm Vol 1.470 cm cubed D1 13.2 mm D2 10.3 mm D3 15.5 mm Mean 13.0 mm Vol 1.107 cm cubed D1 14.2 mm D2 11.2 mm D3 11.6 mm Mean 12.3 mm Vol 0.962 cm cubed D1 12.6 mm D2 11.2 mm D3 13.0 mm Mean 12.3 mm Vol 0.957 cm cubed D1 9.5 mm D2 10.7 mm D3 10.9 mm Mean 10.3 mm Vol 0.574 cm cubed D1 9.6 mm D2 10.6 mm D3 10.0 mm Mean 10.1 mm Vol 0.535 cm cubed Rt ovary other findings: 4 follicles < 10 mm Left Ovary Lt ovary: Stimulated w/ multiple follicles consistent w/ hormonal therapy Lt ovarian follicle(s): Follicles identified D1 14.0 mm D2 12.9 mm D3 18.1 mm Mean 15.0 mm Vol 1.711 cm cubed D1 15.8 mm D2 17.2 mm D3 11.5 mm Mean 14.8 mm Vol 1.639 cm cubed D1 14.5 mm D2 16.3 mm D3 11.0 mm Mean 13.9 mm Vol 1.357 cm cubed D1 9.3 mm D2 14.3 mm D3 17.7 mm Mean 13.7 mm Vol 1.223 cm cubed D1 15.3 mm D2 12.9 mm D3 12.9 mm Mean 13.7 mm Vol 1.324 cm cubed D1 11.7 mm D2 11.4 mm D3 15.8 mm Mean 13.0 mm Vol 1.108 cm cubed D1 15.0 mm D2 9.8 mm D3 13.7 mm Mean 12.9 mm Vol 1.060 cm cubed D1 13.9 mm D2 12.5 mm D3 11.2 mm Mean 12.5 mm Vol 1.020 cm cubed D1 14.3 mm D2 12.2 mm D3 10.9 mm Mean 12.4 mm Vol 0.990 cm cubed D1 13.6 mm D2 10.9 mm D3 11.9 mm Mean 12.1 mm Vol 0.922 cm cubed D1 10.7 mm D2 12.7 mm D3 11.8 mm Mean 11.7 mm Vol 0.836 cm cubed D1 11.4 mm D2 6.9 mm D3 12.8 mm Mean 10.4 mm Vol 0.527 cm cubed Lt ovary other findings: 4 follicles < 10 mm [place] Appears normal. No free fluid visualized. Impression Limited transvaginal follicular ultrasound-12300 1. Trilaminar endometrium measuring 10 mm 2. Small lower uterine segment polyp re-measured and stable at 3-4 mm 3. ROV and LINDA stimulated with follicles measured as above. 4. No free fluid int he cul de sac. Follow-up Labs today (E2/P4). Plan pending results. Comment ========= Ultrasound findings discussed w/patient. DATE OF SERVICE: 12/14/2018 us Sue Hyman MD IMG US MUSIC ENGINEER ORDERABLES Fin al Result documented in this encounter Visit Diagnoses Not on filedocumented in this encounter Care Teams Curriculum Designer Relationship Specialty Start Date End Date [facility], [address] [facility] [place] [place] [address] PCP - General 11/03/15 10/01/23 documented as of this encounter
--- OUTSIDE RECORDS SUMMARY | 2024-09-16 01:38 | XMS_ITS | Encounter Summary ---
Author Organization [facility] Address [address] [place] [address] Care Team Providers Care Circuit Breaker Mechanic Name Role Phone [facility] Internal Medicine, Primary Care Provi darrel Encounter Details Date Type Department Care Team (Late st Contact Info) Description 08/31/2018 9:48 EST - 08/31/2018 23:59 EST Hospital Encounter [facility] - [facility] [address] [place] [address] Unknown, Provider, MD Hyman, Sue Dailey MD [address] [place] [address], [address] [place] [address] Lab, E&I Discharge Disposition: Auto Discharge Social History Tobacco [...] documented in this encounter Discharge Diagnoses Diagnosis N97.9 Female infertility, unspecified-N97.9[ICD-10-CM] documented in this encounter Medications at Time of Discharge choriogonadotrop in keke (OVIDREL) 250 mcg/0.5 mL injection solution Inject 250 mcg into the skin once for 1 dose. Inject as directed by physician 1 Syringe 06/06/2018 9 choriogonadotrop in keke (OVIDREL) 250 mcg/0.5 mL injection solution Inject 250 mcg into the skin daily. 1 Syringe 2 05/27/2018 9 letrozole (FEMARA) 2.5 mg tablet Take 1 Tab by mouth daily. 5 Tab 08/21/2018 9 documented as of this encounter Discharge Disposition Disposition Code Departure Means Destination Auto Discharge Home documented in this encounter Procedure Notes * Jeremias Maldonado MD - 08/31/2018 1004 ESTProcedure(s): OR ARTIFICIAL INSEMINATION INTRA-UTERINE Pre-Procedure Diagnose(s): Infertility, female Post-Procedure Diagnose(s): Infertility, female Patient and partner Tremaine here today for insemination # 3. Consent signed by patient, IUI sample identified by patient, and Final Verification performed with patient prior to insemination. All patient's questions were discussed and answered. Patient was placed in dorsal lithotomy position and speculum was inserted into vagina. Cervical os was visualized and prepared sample was inserted into uterus. Insemination was performed without difficulty. Patient tolerated procedure well. One attempt(s) was made to pass catheter and no bleeding occurred during insemination. Anticipated date of test is 09/16/18. Patient was educated prior to leaving office today on the following points: 1. Patient given copy of I am , what can I take? 2. Patient was advised to call office if she develops fever, chills, pelvic pain, or heavy bleeding. 3. Patient will call office if she does not start her menses in two weeks from today for test. If menses begins, patient was advised to call office to report and to proceed with another cycle if appropriate. Patient verbalized understanding of plan. I was supervised by Dr. Hyman, who was present and immediately available in the office suite. Jeremias Maldonado MD 08/31/2018 10:04 Cosigned by Sue Hyman MD at 09/01/2018 10:49 EST documented in this encounter Plan of Treatment Not on file documented as of this encounter Visit Diagnoses Not on filedocumented in this encounter Care Teams Circuit Breaker Mechanic Relationship Specialty Start Date End Date [facility] Internal Medicine, [address] [place] [address] PCP - General 11/03/15 10/01/23 documented as of this encounter
--- OUTSIDE RECORDS SUMMARY | 2024-09-16 01:38 | XMS_ITS | Encounter Summary ---
Author Organization [facility] Address [address] [place] [address] Care Team Providers Care Mixing Plant Operator Name Role Phone Internal Medicine Primary Care Provi darrel Reason for Visit * Reason Comments Infertility Encounter Details Date Type Department Care Team (Late st Contact Info) Description 09/09/2018 15:15 EST Office Visit [facility] [address] [phone] Maryan Jameson MD [address] [facility] [address] [place] [address] Encounter for preconception consultation; Preprocedural examination; Routine screening for STI (sexually transmitted infection); Encounter for fertility testing Discharge Disposition: Auto Discharge Social History Tobacco [...] - - Weight 60.8 kg (134 lb) 09/09/2018 1457 EST Height 160 cm (5' 2.99) 09/09/2018 1457 EST Body Mass Index 23.74 09/09/2018 1457 EST documented in this encounter Functional Status [...] documented in this encounter Discharge Diagnoses Diagnosis Z31.69 Encounter for other general counseling and advice on procreation-Z31.69[ICD-10-CM] Z01.818 Encounter for other preprocedural examination-Z01.818[ICD-10-CM] Z11.3 Encounter for screening for infections with a predominantly sexual mode of transmission-Z11.3[ICD-10-CM] Z31.41 Encounter for fertility testing-Z31.41[ICD-10-CM] documented in this encounter Discharge Disposition Disposition Code Departure Means Destination Auto Discharge documented in this encounter Progress Notes * Jeremias Maldonado MD - 09/09/2018 1515 EST IN-VITRO FERTILIZATION INTAKE VISIT Date: 09/09/18 Patient Name: Reanna Espinoza Patient Age (at time of encounter): 33 y.o. 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 Yes\ FERTILITY HISTORY: 33 y.o. attempting conception for 2 years. Patients partner is male. The patient reports she has not used contraception for 13 years. Prior infertility treatment: CC50mg/USF/hCG/IUI x3 ltz 2.5mg/USF/hCG/IUI x1 Recent trips to areas affected by ZIKA virus: denies OVULATORY RISK FACTORS Patient's last menstrual period was 08/17/2018. Cycles are regular every 27-28 days. HMB [...] ruptured appendix? No Hysterosalpingogram or HyCoSy results? 05/01/2018 Transvaginal sonohysterogram-[id number] +[id number] Anteverted uterus with a trilaminar endometrium as described above. There is a intramural fibroid appreciated that mesures as above. The ovaries are normal in appearance bilaterally, combined AFC is greater than 30. HyCoSy shows a cavity with a small sessile polyp measuring 4.8 x 3.6 x 3.6 mm. There is flow of air bubbles out the right tubal ostia consistent with tubal patency. No evidence of left tubal patency was appreciated on today's examination. OVARIAN RESERVE TEST RESULTS: FSH: N/A AMH: 6.93 Estradiol: N/A AFC: 30 on 05/01/2018 OB History Para Term AB Living 0 0 0 0 0 0 SAB TAB Ectopic Multiple Live Births 0 0 0 0 0 PMH: denies PSH: denies FH: GM had PE and immediately . History of Cystic Fibrosis: denies History of Defects/Mental/Physical Handicap: denies Social History Socioeconomic History ??? Marital status: Spouse name: Not on file ??? Number of children: Not on file ??? Years of education: Not on file ??? Highest education level: Not on file Social Needs ??? Financial resource strain: Not on file ??? Food insecurity - worry: Not on file ??? Food insecurity - inability: Not on file ??? Transportation needs - medical: Not on file ??? Transportation needs - non-medical: Not on file Occupational History ??? Not on file Tobacco Use ??? Smoking status: Never Smoker ??? Smokeless tobacco: Never Used Substance and Sexual Activity ??? Alcohol use: Yes Alcohol/week: 1.8 - 2.4 oz Types: 3 - 4 Glasses of wine per week ??? Drug use: No ??? Sexual activity: Yes Partners: Male Comment: one partner 10+ years Other Topics Concern ??? Not on file Social History Narrative ??? Not on file Current Outpatient Medications: choriogonadotropin keke (OVIDREL) 250 mcg/0.5 mL injection solution choriogonadotropin keke (OVIDREL) 250 mcg/0.5 mL injection solution letrozole (FEMARA) 2.5 mg tablet No current facility-administered medications for this visit. No Known Allergies ROS:10 point review of systems completed and found to be negative unless otherwise mentioned above in the HPI. MALE HISTORY Past Medical History GERD Medications/Supplements denies Exposure to reproductive toxins: no Tobacco Use: No Alcohol Use: Yes, 2 spirits twice a week Denies drug use Paternity of Pregnancies: Number with this partner: 0 Number with other partners: 0 Age of youngest child: N/A Urologic History: Infection no STD no Mumps no Varicocele no Semen analysis yes Undescended Testes no Testicular Trauma no Genital Surgery Yes right inguinal hernia repair Ejaculatory Problem no Impotence no SEMEN ANALYSIS/WASHUPS: Component Latest Ref Rng & Units 06/08/2018 07/06/2018 Media Lot #, POC [id number]; [id number]; [id number] Expiration, POC 07/2019; 08/2018; 01/2019 Pre-Wash Volume, [...] Units 08/04/2018 08/31/2018 Media Lot #, POC [id number]; [id number]; [id number] Expiration, POC 07/2019; 01/2019; 01/2019 Pre-Wash Volume, POC >= 2 ml 2.0 3.0 Pre-Wash Count, POC >=20 million/ml 55 49 Pre-Wash Motility, POC >= 50% 71 69 Post-Wash, POC ml 0.5 0.5 Post-Wash Count, POC million/ml 110 67 Post-Wash Motility, POC % 85 69 Total Motile, POC >= 6 million 46.5 23 PHYSICAL EXAM: Ht 160 cm (62.99) Wt 60.8 kg (134 lb) LMP 08/17/2018 BMI 23.74 kg/m?? General appearance: alert, cooperative Neck: supple, symmetrical, trachea midline and thyroid: not enlarged, symmetric, no tenderness/mass/nodules Lungs: non labored breathing Neurologic: Alert and oriented X 3, normal strength and tone. Normal symmetric reflexes. Normal coordination and gait Mental Status: awake and alert; oriented to person, place, and time Extremities: all extremities warm and well perfused Counseling: We discussed national and site specific live rates with IVF 60%, along with possible individual modification of this rate due to UEI. Risks associated with IVF including multiple , selective reduction, miscarriage, ectopic , cycle cancellation, OHSS, surgical risks, and defects were reviewed. We reviewed methods of fertilization (standard vs ICSI), the use of assisted hatching and the ASRM recommended limits of number of embryos to transfer 1 good quality embryo. The couple signed the IVF consent forms today and all their questions were answered. Zika Counseling: Discussed risk of transmission of Zika virus and its prevalence. Discussed risk tofetus. Information given to the couple regarding the virus. Discouraged travel to these areas. Genetic counseling: Offered couple CF and SMA testing per ACOG guidelines. Pt already had testing in 2018. Also discussed expanded carrier screening. If interested, will set up visit with Dr. Leone or let us know so we can begin precertification process. Assessment: Ms. Espinoza is a 33yo with UEI s/p OI/IUI presenting to discuss further options for procreation. Plan: Stimulation Meds: Lupron 10:5, 10/10 for 3 days then 09/12 ICSI: No AH: At the discretion of the embryologist Fertilize: all Max embryos to transfer: 1 Cryopreserve: Yes: all remaining embryos To Be Done: FDA labs for both CBC, T&S The pt was seen and counselled with Dr Lakeisha Torres. Dr. Jeremias Maldonado MD Reproductive Endocrinology & Infertility Fellow * Isabel Lloyd - 09/09/2018 1515 EST Blood drawn via antecubital fossa using a butterfly needle. Pt tolerated procedure sucessfully. Pressure and 2x2 applied, secured with paper tape. 1 sst, 2 lavender tube(s) sent to the lab per order.Isabel Lloyd 09/09/2018 16:20 * Maryan Thompson MD - 09/09/2018 1515 EST Attestation statement: I discussed the patient with the resident/fellow at the time of the visit. Iagree with the findings and the plan of care documented in the resident's/fellow's note. documented in this encounter Plan of Treatment Not on file documented as of this encounter Procedures Procedure Name Priority Date/Time Associated Diagnosis Comments ABO/RH Routine 09/09/2018 16:35 EST Encounter for preconception consultation Preprocedural examination PROFILE IVF NON DONOR Routine 09/09/2018 15:44 EST Routine screening for STI (sexually transmitted infection) COMPLETE BLOOD COUNT Routine 09/09/2018 15:44 EST Encounter for preconception consultation Preprocedural examination documented in this encounter Results * ABO/RH (09/09/2018 16:35 EST) ABO O [facility] Rh Factor Positive [facility] Blood specimen (specimen) 09/09/2018 16:35 EST Micah Phillip MD BLOOD BANK TESTS Final Res ult Performing Organization Address [facility] Co de Phone Number [facility] [address] [place] [address] * PROFILE IVF NON DONOR (09/09/2018 15:44 EST) HIV 1/2 Antibody Negative Negative 09/10/19 19 10:53 [facility] Comment: Fourth generation assay performed on the Siemens Centaur. If acute HIV-1 infection is suspected in a high risk patient, submit plasma specimen for HIV-1 RNA quantification test. Hepatitis B Core Antibody Negative Negative 09/10/2018 10:53 [facility] Hepatitis B Surface Antigen Negative Negative 09/10/2018 10:52 [facility] Syphilis Serology Negative 019 12:16 [facility] Comment:Reference Range: Neg ative Hep C Ab w Rfx PCR HCSCR2 Negative Negative 09/10/2018 10:53 [facility] Blood specimen (specimen) BLOOD SPECIMEN / Unknown 09/09/2018 15:44 EST 09/09/2018 16:21 EST Micah Phillip MD PACKAGES & DNA PROBE ORDER SUNSHINE Final Result Performing Organization Address [facility]/ZIP Co de Phone Number [facility] [address] [place] [address] * COMPLETE BLOOD COUNT (09/09/2018 15:44 EST) WBC 10.45 4.0 - 12.4 K/cmm 09/09/2018 17:25 [facility] RBC 4.81 3.86 - 5.04 M/cmm 09/09/2018 17:25 [facility] Hemoglobin 14.5 11.6 - 15.2 gm/dl 09/09/2018 17:25 [facility] HCT 42.3 34.9 - 44.4 % 09/09/2018 17:25 [facility] MCV 88 81 - 98 fl 09/09/2018 17:25 [facility] MCH 30.1 26.7 - 33.3 pg 09/09/2018 17:25 [facility] MCHC 34.3 32.1 - 35.9 gm/dl 09/09/2018 17:25 [facility] RDW-CV 12.2 <14.7 % 09/09/2018 17:25 [facility] RDW-SD 39.8 <50.4 fl 09/09/2018 17:25 [facility] PLT 262 141 - 377 K/cmm 09/09/2018 17:25 [facility] MPV 10.0 9.5 - 12.7 fl 09/09/2018 17:25 [facility] Blood specimen (specimen) BLOOD SPECIMEN / Unknown 09/09/2018 15:44 EST 09/09/2018 16:21 EST us Micah Phillip MD HEMATOLOGY & PF4 ORDERABLE S Final Result [facility] [address] [place] [address] documented in this encounter Visit Diagnoses Diagnosis Encounter for preconception consultation Other procreative management counseling and advice Preprocedural examination Preoperative examination, unspecified Routine screening for STI (sexually transmitted infection) Screening examination for venereal disease Encounter for fertility testing Fertility testing documented in this encounter Care Teams Mixing Plant Operator Relationship Specialty Start Date End Date [facility] Internal Medicine, [address] [place] [address] PCP - General 11/03/15 10/01/23 documented as of this encounter
--- OUTSIDE RECORDS SUMMARY | 2024-09-16 01:38 | XMS_ITS | Encounter Summary ---
Author Organization [facility] Address [address] [place] [address] Care Team Providers Care Editorial Specialist Name Role Phone [facility] Internal Medicine, Primary Care Provi darrel Unknown, Provider Primary Care Provider Unava ilable None, Provider Primary Care Provider Unavailabl e Encounter Details Date Type Department Care Team (Late st Contact Info) Description 11/18/2018 Documentation Visit [facility] Reproductive Medicine & Infertility Center - [facility] [address] [place] [address] Lanette Pagan RN Social History Tobacco Use Types Packs/Day [...] Filled Start Date End Date norgestimate-ethin yl estradiol (ORTHO-CYCLEN, 28,) 0.25-35 mg-mcg per tablet Take 1 tablet by mouth daily. Take continuously, discard inactive pills and immediately open new pack 28 tablet 11/18/2018 9 documented in this encounter Plan of Treatment Not on file documented as of this encounter Visit Diagnoses Not on filedocumented in this encounter Discontinued Medications Medication Sig Discontinue Reason Start Date End Da te norgestimate-ethinyl estradiol (ORTHO-CYCLEN, 28,) 0.25-35 mg-mcg per tablet Take 1 tablet by mouth daily. Take continuously, discard inactive pills and immediately open new pack Reorder 10/13/2018 11/18/2018 documented as of this encounter Care Teams Editorial Specialist Relationship Specialty Start Date End Date [facility] Internal Medicine, [place] [address] [place] [address] PCP - General 11/03/15 10/01/23 Unknown, Provider, [place] [address] [place] [address] PCP - General 10/02/23 4 None, Provider PCP - General 05/09/24 documented as of this encounter
--- OUTSIDE RECORDS SUMMARY | 2024-09-16 01:38 | XMS_ITS | Encounter Summary ---
Author Organization [facility] Address [address] [place] [address] Care Team Providers Care Medical Clerical Assistant Name Role Phone Internal Medicine, Primary Care Provi darrel Reason for Visit * Reason Onset Date Comments Other 09/11/2018 Encounter Details Date Type Department Care Team (Late st Contact Info) Description 09/11/2018 Telephone [facility] Reproductive Medicine & Infertility Center - [address] [phone] Jeremias Maldondao MD [address] [place] [phone] Other Social History Tobacco Use Types Packs/Day [...] Telephone Encounter - Jeremias Maldonado MD - 09/12/2018 1512 EST Telephoned patient to review her lab results but she did not answer. I asked her to call back at her earliest convenience so we can arrange for a coagulation profile, testosterone total and free. The patient was discussed with Dr. Lakeisha Torres. Dr. Jeremias Maldonado MD Reproductive Endocrinology & Infertility Fellow documented in this encounter Plan of Treatment Not on file documented as of this encounter Visit Diagnoses Diagnosis Family history of pulmonary embolism- Primary Family history of other cardiovascular diseases Procreative management Unspecified procreative management documented in this encounter Care Teams Medical Clerical Assistant Relationship Specialty Start Date End Date [facility] Internal Medicine, [address] [place] [address] PCP - General 11/03/15 10/01/23 documented as of this encounter
--- OUTSIDE RECORDS SUMMARY | 2024-09-16 01:38 | XMS_ITS | Encounter Summary ---
Author Organization [facility] Address [address] [place] [address] Care Team Providers Care Revenue Stamp Clerk Name Role Phone [facility] Internal Medicine, Primary Care Provi darrel Reason for Visit * Reason Onset Date Comments Results 01/01/2019 Encounter Details Date Type Department Care Team (Late st Contact Info) Description 01/01/2019 Telephone [facility] Reproductive Medicine & Infertility Center - [address] [address] Leonard Pagan RN Results Social History Tobacco Use [...] 1 mL into the muscle daily. 3 Vial 2 01/01/2019 03/24/2019 progesterone in oil 50 mg/mL injection Inject 1 mL into the muscle daily. 1 Vial 01/01/2019 01/01/2019 progesterone in oil 50 mg/mL injection Inject 0.1 mL into the muscle daily. 3 Vial 2 01/01/2019 01/01/2019 documented in this encounter Miscellaneous Notes * Addendum Note - Leonard Pagan RN - 01/01/2019 1428 EDTAddended by: LEONARD PAGAN on: 01/01/2019 14:28 Modules accepted: Orders * Telephone Encounter - Leonard Pagan RN - 01/01/2019 1408 EDT Reanna called back. Reviewed results and plan. She verbalized understanding of plan to continue progesterone in oil injections and will repeat HCGon 01/03 @ [facility]. Order faxed Progesterone in oil injections reordered to [facility], with one additional vial ordered at [facility] in case she needs it to bridge between receipt of her order from [facility] * Telephone Encounter - Leonard Pagan RN - 01/01/2019 1137 EDT Component Latest Ref Rng & Units 01/01/2019 Quant Beta HCG, Preg <5 mIU/ml 45 (H) PC to Reanna to review HCG result from today. She did not answer. Left detailed message on identified VM that her result is positive and indicative of early . Advised to continue progesterone in oil injections and to call back to confirm instructions to repeat HCG on 01/03. documented in this encounter Plan of Treatment Not on file documented as of this encounter Results * (ABNORMAL) QUANT BETA HCG, (01/07/2019 9:01 EDT) Quant Beta HCG, Preg 278(H) <5 mIU/ml 01/07/2019 10:50 EDT [facility] Comment: Reference Range: Negative = <5 Indeterminate = 5-25 recommend repeat in 48 hours. Positive = >25 The results of this assay can be falsely lowered due to the consumption of Biotin. Blood specimen (specimen) BLOOD SPECIMEN / Unknown 01/07/2019 9:01 EDT 01/07/2019 10:03 EDT us Maryan Torres MD CHEMISTRY & BLO OD GAS ORDERABLES Final Result [facility] [address] [place] [address] documented in this encounter Visit Diagnoses Diagnosis resulting from assisted reproductive technology in first trimester- Primary documented in this encounter Discontinued Medications Medication Sig Discontinue Reason Start Date End Da te progesterone in oil 50 mg/mL injection Inject 0.1 mL into the muscle daily. Reorder 01/01/2019 01/01/2019 progesterone in oil 50 mg/mL injection Inject 1 mL into the muscle daily. Reorder 01/01/2019 01/01/2019 documented as of this encounter Care Teams Revenue Stamp Clerk Relationship Specialty Start Date End Date [facility] Internal Medicine, [place] [address] [place] [address] PCP - General 11/03/15 10/01/23 documented as of this encounter
--- OUTSIDE RECORDS SUMMARY | 2024-09-16 01:38 | XMS_ITS | Encounter Summary ---
Author Organization [facility] Address [address] [place] [address] Care Team Providers Care Marine Railway Operator Name Role Phone Internal Medicine, Primary Care Provi darrel Encounter Details Date Type Department Care Team (Latest Contact Info) Description 12/21/2018 9:52 EDT - 12/21/2018 23:[address] [facility] Reproductive Medicine & Infertility Center - [facility] [address] [place] [address] Gary Vega MD [address] [place] [address] [phone] Discharge Disposition: Auto Discharge Social History Tobacco [...] * Discharge Instructions* Johanne Khan RN - 12/21/2018 11:53 EDT 1. Avoid strenuous activity and heavy [...] your embryo transfer. 5. Due for HCG 01/01 and 01/03 documented in this encounter Medications at Time [...] documented in this encounter Procedure Notes * Gary Vega MD - 12/21/2018 1145 EDTProcedure(s): IL EMBRYO TRANSFER INTRAUTERINE Pre-Procedure Diagnose(s): Encounter for assisted reproductive fertility cycle Post-Procedure Diagnose(s): Encounter for assisted reproductive fertility cycle EMBRYO TRANSFER NOTE Embryo culture results were discussed with the patient. Today we plan on transferring 2 day 3 embryo (8B+, 4C). Additionally, the patient will have 11 remain in culture today. Time out performed prior to start of procedure. ? Endometrial lining measured 12 mm; excellent visualization. ?? Sterile speculum inserted, [...] embryos into the inner catheter: embryos were 8B+, 4C. The stylette guide was then removed from the outer sheath, and the inner catheter was introduced to mid to upper third of the endometrium. The embryos were then transferred into the uterine cavity. After a 15 second pause, the catheter was removed and returned to the lab. There was no blood or mucus on the catheter, and no embryo(s) was(were) retained. No uterine crampingoccurred. The speculum was then removed. The patient did not require drainage of her bladder. Transfer performed by Dr. Vega, assisted by Dr. Martinez. ?? [facility]19 Vonnie Martinez MD Reproductive Endocrinology and Infertility Fellow Attestation statement: I was present for and participated in this entire procedure. I agree with the procedure note as seen above. Gary Vega MD Reproductive Endocrinology and Infertility [...] mg, intramuscular, NOW X1, 1 dose, On 12/21/18 at 1215, Routine Given 12/21/2018 11:30 EDT 100 mg documented in this encounter Care Teams Marine Railway Operator Relationship Specialty Start Date End Date [facility] Internal Medicine, [place] [place] [address] PCP - General 11/03/15 10/01/23 documented as of this encounter
--- OUTSIDE RECORDS SUMMARY | 2024-09-16 01:38 | XMS_ITS | Encounter Summary ---
Author Organization [facility] Address [address] [place] [address] Care Team Providers Care [facility] Shift Lead Name Role Phone Internal Medicine, Primary Care Provi darrel Encounter Details Date Type Department Care Team (Late st Contact Info) Description 12/04/2018 Results Only Imaging [facility] Reproductive Medicine & Infertility Center [facility] [address] [facility] [place] [address] Maryan Jameson MD [address] [facility], [address] [place] [address] Social History Tobacco Use [...] Procedure Name Priority Date/Time Associated Diagnosis Comments SKIN FORMER US BASELINE INVITRO 12/04/2018 8:40 EDT documented in this encounter Results * SKIN FORMER US BASELINE INVITRO (12/04/2018 8:40 EDT) Anatomical Region Laterality Modality Other 12/04/2018 8:40 EDT 12/04/2018 9:04 EDT Narrative 12/04/2018 9:04 EDT Indication Baseline IVF. Uterus ======= Uterus: ?Visualized Uterus position: ?? Anteverted Myometrium: ?Fibroid Endometrium: ?? Thin endometrium Uterus long ?0.2 cm Fibroids: ??Fibroids identified Findings: ??Intramural. Anterior D1 13.6 mm D2 17.3 mm D3 9.6 mm Mean ?? 13.5 mm Vol ?1.183 cm cubed Uterus other findings: MOCK: fundus at 5.5 cm, TL 5 cm Right Ovary Rt ovary: ??Visualized Rt ovary other findings: ?? AFC = 18 Left Ovary Lt ovary: ??Visualized Lt ovary other findings: ?? AFC = 15 Cul de Sac Appears normal. No free fluid visualized. Impression Limited Transvaginal Ultrasound, Baseline -[id number] Anteverted uterus with a thin endometrium and an intramural fibroid that measures as above. The ovaries are normal in appearance, combined AFC = 33. Follow-up per IVF team. Comment ========= Ultrasound findings discussed w/patient. DATE OF SERVICE: 12/04/2018 Procedure Note Gary Vega MD - 12/04/2018 Indication Baseline IVF. Uterus ======= Uterus: Visualized Uterus position: Anteverted Myometrium: Fibroid Endometrium: Thin endometrium Uterus long 0.2 cm Fibroids: Fibroids identified Findings: Intramural. Anterior D1 13.6 mm D2 17.3 mm D3 9.6 mm Mean 13.5 mm Vol 1.183 cm cubed Uterus other findings: MOCK: fundus at 5.5 cm, TL 5 cm Right Ovary Rt ovary: Visualized Rt ovary other findings: AFC = 18 Left Ovary Lt ovary: Visualized Lt ovary other findings: AFC = 15 Cul de Sac Appears normal. No free fluid visualized. Impression Limited Transvaginal Ultrasound, Baseline -[id number] Anteverted uterus with a thin endometrium and an intramural fibroid that measures as above. The ovaries are normal in appearance, combined AFC = 33. Follow-up per IVF team. Comment ========= Ultrasound findings discussed w/patient. DATE OF SERVICE: 12/04/2018 us Maryan Torres MD IMG US SKIN FORMER NIKOLAY VALENCIA Final Result documented in this encounter Visit Diagnoses Not on filedocumented in this encounter Care Teams [facility] Shift Lead Relationship Specialty Start Date End Date [facility] Internal Medicine, [address] [place] [address] PCP - General 11/03/15 10/01/23 documented as of this encounter
--- OUTSIDE RECORDS SUMMARY | 2024-09-16 01:38 | XMS_ITS | Encounter Summary ---
Author Organization [facility] Address [address] [place] [address] Care Team Providers Care Medical Insurance Claims Specialist Name Role Phone [facility] Internal Medicine, Primary Care Provi darrel Reason for Visit * Reason Onset Date Comments Follow-up 09/15/2018 Encounter Details Date Type Department Care Team (Late st Contact Info) Description 09/15/2018 Telephone [facility] Reproductive Medicine & Infertility Center - [facility] [address] [place] [address] Johanne Khan RN [address] [place] [address] Follow-up Social History Tobacco Use Types Packs/Day [...] Telephone Encounter - Johanne Khan RN - 09/15/2018 1005 EST Reanna called to report start of menses. CD#1=09/15. I asked that she call with next menses to startOCPs for December cycle. documented in this encounter Plan of Treatment Not on file documented as of this encounter Visit Diagnoses Not on filedocumented in this encounter Care Teams Medical Insurance Claims Specialist Relationship Specialty Start Date End Date [facility] Internal Medicine, [place] [address] [place] [address] PCP - General 11/03/15 10/01/23 documented as of this encounter
--- OUTSIDE RECORDS SUMMARY | 2024-09-16 01:38 | XMS_ITS | Encounter Summary ---
Author Organization [facility] Address [address] [place] [address] Care Team Providers Care Color Depositing Machine Tender Name Role Phone [facility] Internal Medicine, Primary Care Provi darrel Reason for Visit * Reason Onset Date Comments Results 12/10/2018 Encounter Details Date Type Department Care Team (Late st Contact Info) Description 12/10/2018 Telephone [facility] Reproductive Medicine & Infertility Center - [address] [address] Lanette Pagan, MALIA Results Social [...] Telephone Encounter - Lanette Pagan, MALIA - 12/10/2018 1206 EDT Telephoned patient to review results of labs and continued medication plan. Component Latest Ref Rng & Units 12/10/2018 Estradiol pg/ml 410 Advised patient to decrease GN 08/12 and continue lupron 5 units . Next step is USE Saturday12/12/18 @ 815. Discussed with Dr Maldonado. Pt verbalized agreement and understanding of plan. documented in this encounter Plan of Treatment Not on file documented as of this encounter Visit Diagnoses Diagnosis Encounter for assisted reproductive fertility cycle- Primary Encounter for assisted reproductive fertility procedure cycle documented in this encounter Care Teams Color Depositing Machine Tender Relationship Specialty Start Date End Date [facility] Internal Medicine, [address] [place] [address] PCP - General 11/03/15 10/01/23 documented as of this encounter
--- OUTSIDE RECORDS SUMMARY | 2024-09-16 01:38 | XMS_ITS | Encounter Summary ---
Author Organization [facility] Address [address] [place] [address] Care Team Providers Care Machine Inker Name Role Phone [facility] Internal Medicine, Primary Care Provi darrel Encounter Details Date Type Department Care Team (Late st Contact Info) Description 09/01/2018 Orders Only [facility] Reproductive Medicine & Infertility Center - [facility] [address] [place] [address] Lanette Pagan RN Encounter for artificial insemination (Primary Dx) Social History Tobacco Use Types [...] Name Priority Date/Time Associated Diagnosis Comments POCT SPERM WASHING ARTIFICIAL INSEMINATION Routine 08/31/2018 9:09 EST Encounter for artificial insemination documented in this encounter Results * POCT SPERM WASHING ARTIFICIAL INSEMINATION (08/31/2018 9:09 EST) Media Lot #, POC [id number]; [id number] POINT OF CARE [facility] Expiration, POC 07/2019; 01/2019 POINT OF CARE [facility] Pre-Wash Volume, POC 3.0 >= 2 ml POINT OF CARE [facility] Pre-Wash Count, POC 49 >=20 million/ml POINT OF CARE [facility] Pre-Wash Motility, POC 69 >= 50% POINT OF CARE [facility] Post-Wash, POC 0.5 ml POINT OF CARE [facility] Post-Wash Count, POC 67 million/ml POINT OF CARE [facility] Post-Wash Motility, POC 69 % POINT OF CARE [facility] Total Motile, POC 23 >= 6 million POINT OF CARE [facility] Timing Method, POC POINT OF CARE [facility] Body fluid specimen (specimen) 08/31/2018 9:09 EST us Sue Hyman MD POINT OF CARE TEST ORDERA BLES Final Result POINT [facility] CARE [facility] documented in this encounter Visit Diagnoses Diagnosis Encounter for artificial insemination- Primary Artificial insemination documented in this encounter Care Teams Machine Inker Relationship Specialty Start Date End Date [facility] Internal Medicine, [address] [place] [address] PCP - General 11/03/15 10/01/23 documented as of this encounter
--- OUTSIDE RECORDS SUMMARY | 2024-09-16 01:38 | XMS_ITS | Encounter Summary ---
Author Organization [facility] Address [address] [place] [address] Care Team Providers Care Media Center Assistant Name Role Phone Internal Medicine, Primary Care Provi darrel Encounter Details Date Type Department Care Team (Late st Contact Info) Description 12/14/2018 Results Only [facility] Reproductive Medicine & Infertility Center - [facility] [address] [place] [address] Micah Phillip MD [address] [place] [phone] Social History Tobacco Use Types Packs/Day Years [...] Procedure Name Priority Date/Time Associated Diagnosis Comments HOLD LAVENDER TOP Routine 12/14/2018 9:02 EDT documented in this encounter Results * HOLD LAVENDER TOP (12/14/2018 9:02 EDT) Hold Purple Top EDTA for hematology will be discarded after 48 hours, differential not available after 12 hours. 12/14/2018 9:08 EDT [facility] BLOOD SPECIMEN / Unknown 12/14/2018 9:02 EDT 12/14/2018 9:08 EDT us Micah Phillip MD LAB INFO SERVICE AND SUPPO RT & PHONE RESULT Final Result [facility] [address] [place] [address] documented in this encounter Visit Diagnoses Not on filedocumented in this encounter Care Teams Media Center Assistant Relationship Specialty Start Date End Date [facility] Internal Medicine, [address] [place] [address] PCP - General 11/03/15 10/01/23 documented as of this encounter
--- OUTSIDE RECORDS SUMMARY | 2024-09-16 01:38 | XMS_ITS | Encounter Summary ---
Author Organization [facility] Address [address] [place] [address] Care Team Providers Care Sneller Hand Name Role Phone [facility] Internal Medicine, Primary Care Provi darrel Encounter Details Date Type Department Care Team (Late st Contact Info) Description 12/18/2018 Orders Only [facility] Reproductive Medicine & Infertility Center - [facility] [address] [place] [address] Lanette Pagan RN test positive (Primary Dx) Social History Tobacco Use Types [...] Date cabergoline (DOSTINEX) 0.5 mg tablet Take one tablet daily for 7 days 7 tablet 12/18/2018 01/25/2019 documented in this encounter Plan of Treatment Not on file documented as of this encounter Procedures Procedure Name Priority Date/Time Associated Diagnosis Comments QUANT BETA HCG, Routine 12/18/2018 12:34 EDT test positive documented in this encounter Results * (ABNORMAL) QUANT BETA HCG, (12/18/2018 12:34 EDT) Quant Beta HCG, Preg 208(H) <5 mIU/ml 12/18/2018 14:03 EDT [facility] Comment: Reference Range: Negative = <5 Indeterminate = 5-25 recommend repeat in 48 hours. Positive = >25 The results of this assay can be falsely lowered due to the consumption of Biotin. Blood specimen (specimen) BLOOD SPECIMEN / Unknown 12/18/2018 12:34 EDT 12/18/2018 13:24 EDT us Maryan Torres MD CHEMISTRY & BLO OD GAS ORDERABLES Final Result [facility] [address] [place] [address] documented in this encounter Visit Diagnoses Diagnosis test positive- Primary examination or test, positive result documented in this encounter Care Teams Sneller Hand Relationship Specialty Start Date End Date [facility] Internal Medicine, [address] [place] [address] PCP - General 11/03/15 10/01/23 documented as of this encounter
--- OUTSIDE RECORDS SUMMARY | 2024-09-16 01:38 | XMS_ITS | Encounter Summary ---
Author Organization [facility] Address [address] [place] [address] Care Team Providers Care Credit Reporter Name Role Phone [facility] Internal Medicine, Primary Care Provi darrel Encounter Details Date Type Department Care Team (Late st Contact Info) Description 12/12/2018 Results Only [facility] Reproductive Medicine & Infertility Center - [facility] [address] [place], [place] [id number] Sue Hyman MD [address] [facility], [address] [place] [address] Social History Tobacco Use Types [...] Priority Date/Time Associated Diagnosis Comments PROGESTERONE Routine 12/12/2018 8:47 EDT documented in this encounter Results * PROGESTERONE (12/12/2018 8:47 EDT) Progesterone 0.6 ng/ml 12/12/2018 12:46 EDT [facility] Comment: NON- FEMALES: follicular phase: ??<0.2-1.4 ng/mL luteal phase: 3.3-25.6 ng/ml postmenopausal: ??<0.2-0.7 ng/mL FEMALES: first trimester: 11.2-90.0 ng/ml second trimester: 25.6-89.4 ng/ml third trimester: 48.4-422.5 ng/ml ECTOPIC PREGNANCIES: consult pathologist BLOOD SPECIMEN / Unknown 12/12/2018 8:47 EDT 12/12/2018 8:58 EDT us Sue Hyman MD CHEMISTRY & BLOOD GAS ORD ERABLES Final Result [facility] [address] [place] [address] documented in this encounter Visit Diagnoses Not on filedocumented in this encounter Care Teams Credit Reporter Relationship Specialty Start Date End Date [facility] Internal Medicine, [address] [place] [address] PCP - General 11/03/15 10/01/23 documented as of this encounter
--- OUTSIDE RECORDS SUMMARY | 2024-09-16 01:38 | XMS_ITS | Encounter Summary ---
Author Organization [facility] Address [address] [place] [address] Care Team Providers Care Tapper Balance Wheel Screw Hole Name Role Phone [facility] Internal Medicine, Primary Care Provi darrel Encounter Details Date Type Department Care Team (Late st Contact Info) Description 12/22/2018 Orders Only [facility] Reproductive Medicine & Infertility Center - [facility] [address], [place] [id number] Johanne Khan RN [address] [place] [address] Encounter for test, result unknown (Primary Dx) [...] in this encounter Progress Notes * Johanne Khan RN - 12/22/2018 1505 EDT Orders placed for hCG. Pt plans to have drawn at [facility]. documented in this encounter Plan of Treatment Not on file documented as of this encounter Procedures Procedure Name Priority Date/Time Associated Diagnosis Comments QUANT BETA HCG, Routine 01/09/2019 documented in this encounter Results * (ABNORMAL) QUANT BETA HCG, (01/09/2019) HCG, External 555 EXTERNAL LAB Blood specimen (specimen) 01/09/2019 us Maryan Torres MD CHEMISTRY & BLO OD GAS ORDERABLES Final Result EXTERNAL LAB * (ABNORMAL) QUANT BETA HCG, (01/01/2019 10:09 EDT) Quant Beta HCG, Preg 45(H) <5 mIU/ml 01/01/2019 11:04 EDT [facility] Comment: Slight hemolysis Reference Range: Negative = <5 Indeterminate = 5-25 recommend repeat in 48 hours. Positive = >25 The results of this assay can be falsely lowered due to the consumption of Biotin. Blood specimen (specimen) BLOOD SPECIMEN / Unknown 01/01/2019 10:09 EDT 01/01/2019 10:28 EDT us Gary Vega MD CHEMISTRY & BLOOD GAS ORDERA BLES Final Result [facility] [address] [place] [address] documented in this encounter Visit Diagnoses Diagnosis Encounter for test, result unknown- Primary documented in this encounter Care Teams Tapper Balance Wheel Screw Hole Relationship Specialty Start Date End Date [facility] Internal Medicine, Mp [address] [place], [place] [id number] PCP - General 11/03/15 10/01/23 documented as of this encounter
--- OUTSIDE RECORDS SUMMARY | 2024-09-16 01:38 | XMS_ITS | Encounter Summary ---
Author Organization [facility] Address [address] [place] [address] Care Team Providers Care Sr. Operations Manager Name Role Phone Internal Medicine, Primary Care Provi darrel Encounter Details Date Type Department Care Team (Late st Contact Info) Description 12/04/2018 Orders Only [facility] Reproductive Medicine & Infertility Center - [address] [address] Gary Vega MD [address] [place] [address] [address] Encounter for assisted reproductive fertility [...] Priority Date/Time Associated Diagnosis Comments PROGESTERONE Routine 12/04/2018 9:17 EDT Encounter for assisted reproductive fertility procedure cycle ESTRADIOL, ADULTS Routine 12/04/2018 9:1 7 EDT Encounter for assisted reproductive fertility procedure cycle documented in this encounter Results * ESTRADIOL, ADULTS (12/04/2018 9:17 EDT) Estradiol 16 pg/ml 12/04/2018 11:27 EDT [facility] Comment: By day [...] GAS ORDERA BLES Final Result [facility] [address] [place] [address] * PROGESTERONE (12/04/2018 9:17 EDT) Progesterone 0.4 ng/ml 12/04/2018 11:27 EDT [facility] Comment: NON- FEMALES: follicular phase: ??<0.2-1.4 ng/mL luteal phase: 3.3-25.6 ng/ml postmenopausal: ??<0.2-0.7 ng/mL FEMALES: first trimester: 11.2-90.0 ng/ml second trimester: 25.6-89.4 ng/ml third trimester: 48.4-422.5 ng/ml ECTOPIC PREGNANCIES: consult pathologist Blood specimen (specimen) BLOOD SPECIMEN / Unknown 12/04/2018 9:17 EDT 12/04/2018 10:16 EDT us Gary Vega MD CHEMISTRY & BLOOD GAS ORDERA BLES Final Result [facility] [address] [place] [address] documented in this encounter Visit Diagnoses Diagnosis Encounter for assisted reproductive fertility procedure cycle- Primary documented in this encounter Care Teams Sr. Operations Manager Relationship Specialty Start Date End Date [facility] Internal Medicine, Mp [address] [place] [address] PCP - General 11/03/15 10/01/23 documented as of this encounter
--- OUTSIDE RECORDS SUMMARY | 2024-09-16 01:38 | XMS_ITS | Encounter Summary ---
Author Organization [facility] Address [address] [place] [address] Care Team Providers Care Linseed Oil Press Tender Name Role Phone [facility] Internal Medicine, Primary Care Provi darrel Reason for Visit * Reason Onset Date Comments Coordination Of Care 12/16/2018 Encounter Details Date Type Department Care Team (Late st Contact Info) Description 12/16/2018 Telephone [facility] Reproductive Medicine & Infertility Center - [address] [address] Lanette Pagan, MALIA Coordination Of [...] Telephone Encounter - Lanette Pagan, MALIA - 12/17/2018 1201 EDT Anesthesia charge, Dr Jazmine Alcantara was paged and returned call to confirm this case tomorrow at 1030. * Telephone Encounter - Lanette Pagan RN - 12/16/2018 1353 EDT After the patient's lab work and US results have been discussed by the IVF team, she has been deemed ready to be scheduled for her oocyte retrieval. Call to pt to review oocyte retrieval timing and instructions. Pt to administer final dose of stim yesterday, 12/15. Pt to administer final dose of lupron this morning 12/16 . Give hCG injection at 2330 on ton, 12/16. Oocyte retrieval scheduled at 1030 on 12/18/18. To arrive to registration on the 3rd floor by 0930 (1hr prior to scheduled procedure). Then proceed to [facility] and arrive no later than 0945 (45 minutes before procedure). Partner should remain abstinent from ejaculation starting today (48 hours prior to the time of collection on the morning of the scheduled procedure). Advised pt to be NPO (nothing to eat or drink) after midnight the night before procedure, 12/17. No use of perfumes, colognes, or scented soaps by patient or partner, as scents can be toxic to oocytes and embryos. We will provide a script for pain medication, to be filled by partner during procedure. Nurse will administer first IM progesterone injection at the time of retrieval. Must have a ride home. Will not be discharged without a ride home. Pt verbalized understanding of plan. Procedural/Anesthesia scheduling for oocyte retrieval: 1. [id number] was called and the patient was put on the anesthesia task calendar, and anesthesia department was notified of coverage status: global 2) Will page anesthesia tomorrow to confirm 3. OR booking form was emailed to [email or web address] and a confirmation of the booking was received via e-mail. documented in this encounter Plan of Treatment Not on file documented as of this encounter Visit Diagnoses Not on filedocumented in this encounter Care Teams Linseed Oil Press Tender Relationship Specialty Start Date End Date [facility] Internal Medicine, Mp [address] [place] [address] PCP - General 11/03/15 10/01/23 documented as of this encounter
--- OUTSIDE RECORDS SUMMARY | 2024-09-16 01:38 | XMS_ITS | Encounter Summary ---
Author Organization [facility] Address [address] [place] [address] Care Team Providers Care Intervention Nurse Name Role Phone Internal Medicine, Primary Care Provi darrel Reason for Visit * Reason Comments Ultrasound IVF USE OM#11 Encounter Details Date Type Department Care Team (Late st Contact Info) Description 12/16/2018 7:45 EDT Office Visit [facility] Reproductive Medicine & Infertility Center [address] [address] Maryan Jameson MD [address] [place] [address] [address] [place] [address] Encounter for assisted reproductive fertility [...] Progress Notes * Micah Phillip MD - 12/16/2018 0745 EDT Patient seen 12/16/2018 for IVF USE OM#11. See ultrasound report and USE flowsheet for full details. Patient discussed with attending Dr. Thompson. Micah Phillip MD 12/16/2018 8:06 PGY5 BALBIR Fellow * Maryan Thompson MD - 12/16/2018 0745 EDT Attestation statement: I discussed the patient with the resident/fellow at the time of the visit. Iagree with the findings and the plan of care documented in the resident's/fellow's note. documented in this encounter Plan of Treatment Not on file documented as of this encounter Procedures Procedure Name Priority Date/Time Associated Diagnosis Comments PROGESTERONE Routine 12/16/2018 8:30 EDT Encounter for assisted reproductive fertility cycle ESTRADIOL, ADULTS Routine 12/16/2018 8:3 0 EDT Encounter for assisted reproductive fertility cycle documented in this encounter Results * PROGESTERONE (12/16/2018 8:30 EDT) Progesterone 1.1 ng/ml 12/16/2018 9:57 EDT [facility] Comment: NON- FEMALES: follicular phase: ??<0.2-1.4 ng/mL luteal phase: 3.3-25.6 ng/ml postmenopausal: ??<0.2-0.7 ng/mL FEMALES: first trimester: 11.2-90.0 ng/ml second trimester: 25.6-89.4 ng/ml third trimester: 48.4-422.5 ng/ml ECTOPIC PREGNANCIES: consult pathologist Blood specimen (specimen) BLOOD SPECIMEN / Unknown 12/16/2018 8:30 EDT 12/16/2018 8:33 EDT Micah Phillip MD CHEMISTRY & BLOOD GAS NIKOLAY VALENCIA Final Result Performing Organization Address City/[facility] Co de Phone Number [facility] [address] [place] [address] * ESTRADIOL, ADULTS (12/16/2018 8:30 EDT) Estradiol 4,134 pg/ml 12/16/2018 9:57 EDT [facility] Comment: By day [...] NIKOLAY VALENCIA Final Result Performing Organization Address City/[facility]/ZIP Co de Phone Number [facility] [address] [place] [address] documented in this encounter Visit Diagnoses Diagnosis Encounter for assisted reproductive fertility cycle- Primary Encounter for assisted reproductive fertility procedure cycle documented in this encounter Care Teams Intervention Nurse Relationship Specialty Start Date End Date [facility] Internal Medicine, Mp [address] [place] [address] PCP - General 11/03/15 10/01/23 documented as of this encounter
--- OUTSIDE RECORDS SUMMARY | 2024-09-16 01:38 | XMS_ITS | Encounter Summary ---
Author Organization [facility] Address [address] [place] [address] Care Team Providers Care Skating Rink Manager Name Role Phone [facility] Internal Medicine, Primary Care Provi darrel Reason for Visit * Reason Onset Date Comments Results 12/12/2018 Encounter Details Date Type Department Care Team (Late st Contact Info) Description 12/12/2018 Telephone [facility] Reproductive Medicine & Infertility Center - [address] [address] Lanette Pagan, MALIA Results Social [...] Telephone Encounter - Lanette Pagan, MALIA - 12/12/2018 1601 EDT PC from [facility] to confirm understanding of plan. * Telephone Encounter - Lanette Pagan, MALIA - 12/12/2018 1148 EDT Telephoned patient to review results of labs and continued medication plan. Left detailed message. Component Latest Ref Rng & Units 12/12/2018 Estradiol pg/ml 1,018 Advised patient to decrease GN to 1/0 and continue lupron. Next step is USE Saturday12/14/18 @ 0830. Discussed with Dr Maldonado. Asked pt to call back to confirm receipt of message and understanding of plan. documented in this encounter Plan of Treatment Not on file documented as of this encounter Visit Diagnoses Not on filedocumented in this encounter Care Teams Skating Rink Manager Relationship Specialty Start Date End Date [facility] Internal Medicine, Mp [address] [place] [address] PCP - General 11/03/15 10/01/23 documented as of this encounter
--- OUTSIDE RECORDS SUMMARY | 2024-09-16 01:38 | XMS_ITS | Encounter Summary ---
Author Organization [facility] Address [address] [place] [address] Care Team Providers Care Sewer Connector Name Role Phone [facility] Internal Medicine, Primary Care Provi darrel Encounter Details Date Type Department Care Team (Late st Contact Info) Description 01/05/2019 Phlebotomy Only [facility] [address] [place] [address] Window Framer, Outpatient Amenorrhea; resulting from assisted reproductive technology in first [...] Date/Time Associated Diagnosis Comments QUANT BETA HCG, STAT 01/05/2019 12:03 EDT Amenorrhea documented in this encounter Results * (ABNORMAL) QUANT BETA HCG, (01/05/2019 12:03 EDT) Quant Beta HCG, Preg 151(H) <5 mIU/ml 01/05/2019 12:50 EDT [facility] Comment: Reference Range: Negative = <5 Indeterminate = 5-25 recommend repeat in 48 hours. Positive = >25 The results of this assay can be falsely lowered due to the consumption of Biotin. Blood specimen (specimen) BLOOD SPECIMEN / Unknown 01/05/2019 12:03 EDT 01/05/2019 12:09 EDT us Micah Phillip MD CHEMISTRY & BLOOD GAS NIKOLAY VALENCIA Final Result [facility] [address] [place] [address] documented in this encounter Visit Diagnoses Diagnosis Amenorrhea Absence of menstruation resulting from assisted reproductive technology in first trimester documented in this encounter Care Teams Sewer Connector Relationship Specialty Start Date End Date [facility] Internal Medicine, Mp [address] [place] [address] PCP - General 11/03/15 10/01/23 documented as of this encounter
--- OUTSIDE RECORDS SUMMARY | 2024-09-16 01:38 | XMS_ITS | Encounter Summary ---
Author Organization [facility] Address [address] [place] [address] Care Team Providers Care Director Of Sales Name Role Phone [facility] Internal Medicine Primary Care Provi darrel Reason for Visit * Reason Onset Date Comments Vaginal Bleeding 10/27/2018 Encounter Details Date Type Department Care Team (Late st Contact Info) Description 10/27/2018 Telephone [facility] Reproductive Medicine & Infertility Center - [facility] [address] [place] [address] Johanne Khan RN [address] [place] [address] Vaginal Bleeding Social History Tobacco Use Types Packs/Day Years [...] Notes * Telephone Encounter - Johanne Khan MALIA - 10/27/2018 3835 EDT Reanna called to report rust colored spotting. She is on continuous OCPs, and this is CD#17. Reviewed that some women experience breakthrough bleeding on OCPs, and it will not effect her IVF cycle. Advised that she continue all active tabs until directed to stop (outlined on IVF calendar). Pt verbalized understanding. documented in this encounter Plan of Treatment Not on file documented as of this encounter Visit Diagnoses Not on filedocumented in this encounter Care Teams Director Of Sales Relationship Specialty Start Date End Date [facility] Internal Medicine, Mp [address] [place] [address] PCP - General 11/03/15 10/01/23 documented as of this encounter
--- OUTSIDE RECORDS SUMMARY | 2024-09-16 01:38 | XMS_ITS | Encounter Summary ---
Author Organization [facility] Address [address] [place] [address] Care Team Providers Care General Internal Medicine Doctor Name Role Phone [facility] Internal Medicine, Primary Care Provi darrel Reason for Visit * Reason Comments Ultrasound IVF US OM#7 Infertility Encounter Details Date Type Department Care Team (Late st Contact Info) Description 12/12/2018 8:15 EDT Office Visit [facility] Reproductive Medicine & Infertility Center - [address] [id number] Sue Hyman MD [address] [place] [address] [address] [place] [address] Encounter for assisted reproductive fertility cycle (Primary Dx); Infertility, female, primary Discharge Disposition: Auto Discharge Social History Tobacco [...] Sign Reading Time Taken Comments Blood Pressure 124/94 12/12/2018 0816 EDT Pulse - - Temperature - - Respiratory Rate - - Oxygen Saturation - - Inhaled Oxygen Concentration - - Weight 60.8 kg (134 lb) 12/12/2018 0816 EDT Height 160 cm (5' 3) 12/12/2018 0816 EDT Body Mass Index 23.74 12/12/2018 0816 EDT documented in this encounter Functional Status [...] fertility procedure cycle-Z31.83[ICD-10-CM] documented in this encounter Patient Instructions * Patient Instructions* Micah Phillip MD - 12/12/2018 8:15 EDT Estradiol check today. Repeat ultrasound in 2 days (Saturday). documented in this encounter Discharge Disposition Disposition Code Departure Means Destination Auto Discharge documented in this encounter Progress Notes * Micah Phillip MD - 12/12/2018 0815 EDT Patient seen 12/12/2018 for IVF USE OM#7. See ultrasound report and USE flowsheet for full details. Patient discussed with attending Dr. Hyman. Micah Phillip MD 12/12/2018 8:33 PGY5 BALBIR Fellow Attestation statement: I discussed the patient with the Fellow at the time of the patient's visit. I agree with the findings and plan of care. Sue Hyman MD * Johanne Khan RN - 12/12/2018 0815 EDT Blood drawn via left AC using a butterfly needle. Pt tolerated procedure well. Pressure and 2x2 applied, secured with paper tape. One tube(s) sent to the lab per order. documented in this encounter Miscellaneous Notes * Addendum Note - Leonard Pagan RN - 12/12/2018 0815 EDTAddended by: LEONARD PAGAN on: 12/12/2018 11:24 Modules accepted: Orders documented in this encounter Plan of Treatment Not on file documented as of this encounter Procedures Procedure Name Priority Date/Time Associated Diagnosis Comments OUTPATIENT ADD-ON Routine 12/12/2018 11: 22 EDT Encounter for assisted reproductive fertility cycle ESTRADIOL, ADULTS Routine 12/12/2018 8:4 7 EDT Encounter for assisted reproductive fertility cycle Infertility, female, primary documented in this encounter Results * OUTPATIENT ADD-ON (12/12/2018 11:22 EDT) Tests to be added PROGESTERONE 12/12/2018 11:22 EDT [facility] Diagnosis Code SAME 12/12/2018 11:40 T [facility] Number for problems [id number] 12/12/2018 11:22 EDT [facility] Accession number [id number] 12/12/2018 11:40 T [facility] Acknowledge ABP Done 9 11:47 EDT [facility] BLOOD SPECIMEN / Unknown 12/12/2018 11:22 EDT 12/12/2018 11:40 EDT us Sue Hyman MD HEMATOLOGY & PF4 ORDERABL ES Final Result [facility] [address] [place] [address] * ESTRADIOL, ADULTS (12/12/2018 8:47 EDT) Estradiol 1,018 pg/ml 12/12/2018 10:48 EDT [facility] Comment: By day in cycle relative to LH peak: Follicular Phase (-12 to -4 days): ??20-144 Midcycle (-3 to +2 days): ? 64-357 Luteal Phase (+4 to +12 days): ??56-214 Postmenopausal: ??0 - 32 Cross reactivity with fulvestrant could lead to falsely elevated estradiol results in patients treated with this drug. Blood specimen (specimen) BLOOD SPECIMEN / Unknown 12/12/2018 8:47 EDT 12/12/2018 8:58 EDT us Sue Hyman MD CHEMISTRY & BLOOD GAS ORD ERABLES Final Result [facility] [address] [place] [address] documented in this encounter Visit Diagnoses Diagnosis Encounter for assisted reproductive fertility cycle- Primary Encounter for assisted reproductive fertility procedure cycle Infertility, female, primary Female infertility of unspecified origin documented in this encounter Care Teams General Internal Medicine Doctor Relationship Specialty Start Date End Date [facility] Internal Medicine, Mp [address] [place], [place] [address] PCP - General 11/03/15 10/01/23 documented as of this encounter
--- OUTSIDE RECORDS SUMMARY | 2024-09-16 01:38 | XMS_ITS | Encounter Summary ---
Author Organization [facility] Address [address] [place] [address] Care Team Providers Care Warper Fixer Name Role Phone [facility] Internal Medicine, Primary Care Provi darrel Reason for Visit * Reason Onset Date Comments Results 12/04/2018 Encounter Details Date Type Department Care Team (Late st Contact Info) Description 12/04/2018 Telephone [facility] Reproductive Medicine & Infertility Center - [address] [address] Lanette Pagan, MALIA Results Social [...] Telephone Encounter - Lanette Pagan, MALIA - 12/04/2018 1516 EDT Telephoned patient to review results of baseline labs and ultrasound, and to confirm medication plan Component Latest Ref Rng & Units 12/04/2018 Progesterone ng/ml 0.4 Estradiol pg/ml 16 Advised patient to begin GN 10/10 on 12/06/18 x 3 days, then reduce to 2/ x 1 day. Next step is E2 on12/10. Discussed with Dr Maldonado. Asked pt to call back to confirm receipt of message and understanding of plan. documented in this encounter Plan of Treatment Not on file documented as of this encounter Visit Diagnoses Diagnosis Encounter for assisted reproductive fertility cycle- Primary Encounter for assisted reproductive fertility procedure cycle documented in this encounter Care Teams Warper Fixer Relationship Specialty Start Date End Date [facility] Internal Medicine, Mp [address] [place] [address] PCP - General 11/03/15 10/01/23 documented as of this encounter
--- OUTSIDE RECORDS SUMMARY | 2024-09-16 01:38 | XMS_ITS | Encounter Summary ---
Author Organization [facility] Address [address] [place] [address] Care Team Providers Care Yellow Pages Space Salesperson Name Role Phone [facility] Internal Medicine, Primary Care Provi darrel Encounter Details Date Type Department Care Team (Late st Contact Info) Description 12/16/2018 Documentation Visit [facility] Reproductive Medicine & Infertility Center - [facility] [address] [place] [address] Vonnie Martinez MD [phone] [phone] Social History Tobacco Use Types Packs/Day Years [...] Progress Notes * Vonnie Martinez MD - 12/16/2018 1220 EDT See USE flowsheet, input labs. Will need cabergoline. Vonnie Martinez MD Reproductive Endocrinology and Infertility Fellow documented in this encounter Plan of Treatment Not on file documented as of this encounter Visit Diagnoses Not on filedocumented in this encounter Care Teams Yellow Pages Space Salesperson Relationship Specialty Start Date End Date [facility] Internal Medicine, Mp [address] [facility] [place] [address] PCP - General 11/03/15 10/01/23 documented as of this encounter
--- OUTSIDE RECORDS SUMMARY | 2024-09-16 01:38 | XMS_ITS | Encounter Summary ---
Author Organization [facility] Address [address] [place] [address] Care Team Providers Care Access Developer Name Role Phone [facility] Internal Medicine, Primary Care Provi darrel Encounter Details Date Type Department Care Team (Late st Contact Info) Description 12/18/2018 8:54 EDT - 12/18/2018 23:59 EDT Hospital Encounter [facility] Reproductive Medicine & Infertility Center - [facility] [address] [place] [address] Unknown, Provider, MD Lakeisha Torres, Maryan Snell MD [address] [place] [address], [facility] [address] [place] [address] Discharge Disposition: Auto Discharge Social [...] Sign Reading Time Taken Comments Blood Pressure 120/72 12/18/2018 1400 EDT Pulse 70 12/18/2018 1400 EDT Temperature 36.5 ??C (97.7 ??F) 12/18/2018 1030 EDT Respiratory Rate 16 12/18/2018 1400 EDT Oxygen Saturation 100% 12/18/2018 1400 EDT Inhaled Oxygen Concentration - - Weight [...] * Discharge Instructions* Lanette Pagan RN - 12/18/2018 12:33 EDT Post egg retrieval instructions Plan to rest/relax [...] resume intercourse. Please contact the nurses at [phone] M-F 8am-430pm if you notice any of [...] M-F or over the weekend please call [phone]. Ask chandrae BALBIR doctor res habilitation assistant to return your call. documented in this encounter Medications at Time [...] Auto Discharge Home documented in this encounter Progress Notes * Lanette Pagan RN - 12/18/2018 1212 EDT 1200:VSS, dermatome level S3 1215: VSS, dermatome level L5 1230: VSS, dermatome leve L5 1245: VSS, dermatome level S1 1300: VSS, dermatome level S1, wiggling toes. Pt nauseated, 4 mg zofran administered IV 1315: VSS, nausea improving, dermatome level S1, feeling pins and needles in buttocks 1330: Nausea improving, sipping gingerale 1345: VSS, full sensation to legs and toes, beginning to feel bladder, dermatome S2 1400: OOB to void, Emptied bladder without complication. PIV d/c'd. Patient with VSS. Tolerating po. Pain well managed. OOB to void. PIV d/c'd, catheter intact, pressure dressing applied. Discharged home in stable condition with partner. The couple was advised to stop at [facility] pharmacy to warehouse order picker cabergoline rx and to start po tonight x 7 days . They verbalized understanding and agreement. documented in this encounter Procedure Notes * Jeremias Maldonado MD - 12/18/2018 1202 EDTProcedure(s): FOLLICLE PUNCTURE, RETRIEVAL OF OOCYTE Pre-Procedure Diagnose(s): Encounter for assisted reproductive fertility procedure cycle Post-Procedure Diagnose(s): Encounter for assisted reproductive fertility procedure cycle IVF OOCYTE RETRIEVAL Preop Dx: S/P controlled ovarian hyperstimulation for IVF Postop Dx: S/P controlled ovarian hyperstimulation for IVF Procedure: US guided Oocyte retrieval with Single Lumen catheter Anesthesia: Regional spinal customer relations specialist: Dr. Lakeisha Torres Assist: Dr. Maldonado Oocytes retrieved: 7 on Right, 7 on Left Endometrium: trilaminar, measures 14 mm Free Fluid: trace Ultrasound Visualization Transvaginal: good EBL: < 50 cc UOP: The patient passed urine prior to the procedure, 200mL urine was drained at the end of the procedure Condition: stable Dispo: IVF Recovery Room Complications: None Dr. Lakeisha Torres was present for and participated in the entire procedure. Dr. Jeermias Maldonado MD Reproductive Endocrinology & Infertility Fellow Cosigned by Maryan Thompson MD at 12/18/2018 12:42 EDT Associated attestation - Maryan Jameson MD - 12/18/2018 1242 EDT Attending attestation: I was present during the raymundo and critical portions of the procedure and agree with the resident's/fellow's note. Maryan Thompson MD 12/18/2018 12:42 documented in this encounter Miscellaneous Notes * Anesthesia Post-Eval - Fatemeh Patel - 12/18/2018 1234 EDT Anesthesia Post op Note Reanna Espinoza Room/bed info not found Anesthesia received: Neuraxial; Resolving Vital Signs: Temp: 36.5 ??C (97.7 ??F), Pulse: 82, BP: 114/72, Resp: 16, SpO2: 99 % Vital signs Stable: Yes Consciousness: Awake Patient's participation in evaluation:Able to participate Temperature Status: Normothermic Respiratory Status: Airway patent Supplemental O2: Room air Oxygen Saturation: Within patient's normal range Cardiovascular Status: Within patient's normal range Post-op Hydration: Adequate Nausea / Vomiting: None Pain Control: Adequate Current Pain Score: Post-op Assessment: Tolerated procedure well Disposition: Home Complications: No apparent anesthetic complications Fatemeh Patel MD 12/18/2018 12:34 documented in this encounter Plan of Treatment Not on file documented as of this encounter Visit Diagnoses Not on filedocumented in this encounter Administered Medications Inactive Administered Medications - up to 3 most recent administrations Medication Order MAR Action Action Date Dose Rate Site ceFAZolin (ANCEF) 2,000 mg in sodium chloride 0.9% 50 mL IVPB 2,000 mg, intravenous, Administer over 30 Minutes, NOW X1, 1 dose, On Diane 12/18/18 at 1000, Routine Given 12/18/2018 9:00 EDT 2,000 mg lactated ringers (LR) infusion at 25 mL/hr, intravenous, CONTINUOUS, Starting on Diane 12/18/18 at 1130, Until 12/20/18 at 0553, Routine, Pre-Op DOS Rx Approved New Bag 12/18/2018 10:30 EDT 25 mL/hr ondansetron (PF) (ZOFRAN) injection 4 mg 4 mg, intravenous, EVERY 4 HOURS PRN, Starting on Diane 12/18/18 at 1313, Until 12/20/18 at 0553, Nausea, Routine Given 12/18/2018 13:00 EDT 4 mg progesterone in oil injection 100 mg 100 mg, intramuscular, DAILY, First dose on Diane 12/18/18 at 1000, Until Discontinued, Routine Given 12/18/2018 11:00 EDT 100 mg documented in this encounter Care Teams Access Developer Relationship Specialty Start Date End Date [facility] Internal Medicine, [place] [address] [place] [address] PCP - General 11/03/15 10/01/23 documented as of this encounter
--- OUTSIDE RECORDS SUMMARY | 2024-09-16 01:38 | XMS_ITS | Encounter Summary ---
Author Organization [facility] Address [address] [place] [address] Care Team Providers Care Automotive Drivability Technician Name Role Phone Internal Medicine, Primary Care Provi darrel Encounter Details Date Type Department Care Team (Late st Contact Info) Description 01/01/2019 Orders Only [facility] Reproductive Medicine & Infertility Center - [address] [address] Gary Vega MD [address] [place] [address] [phone] Encounter for test, result unknown (Primary Dx) [...] Associated Diagnosis Comments QUANT BETA HCG, Routine 01/01/2019 10:09 EDT Encounter for test, result unknown documented in this encounter Results * (ABNORMAL) QUANT BETA HCG, (01/01/2019 10:09 EDT) Quant Beta HCG, Preg 45(H) <5 mIU/ml 01/01/2019 11:[address] [facility] Comment: Slight hemolysis Reference Range: Negative = <5 Indeterminate = 5-25 recommend repeat in 48 hours. Positive = >25 The results of this assay can be falsely lowered due to the consumption of Biotin. Blood specimen (specimen) BLOOD SPECIMEN / Unknown 01/01/2019 10:09 EDT 01/01/2019 10:28 EDT us Gary Vega MD CHEMISTRY & BLOOD GAS ORDERA BLES Final Result [facility] [address] [place] [address] documented in this encounter Visit Diagnoses Diagnosis Encounter for test, result unknown- Primary documented in this encounter Care Teams Automotive Drivability Technician Relationship Specialty Start Date End Date [facility] Internal Medicine, [address] [place], [place] [address] PCP - General 11/03/15 10/01/23 documented as of this encounter
--- OUTSIDE RECORDS SUMMARY | 2024-09-16 01:38 | XMS_ITS | Encounter Summary ---
Author Organization [facility] Address [address] [place] [address] Care Team Providers Care Internet Security Specialist Name Role Phone [facility] Internal Medicine, Primary Care Provi darrel Reason for Visit * Reason Onset Date Comments Results 12/20/2018 Encounter Details Date Type Department Care Team ([facility] st Contact Info) Description 12/20/2018 Telephone [facility] Reproductive Medicine & Infertility Center - [facility] [address] [place] [address] Vonnie Martinez MD [address] [phone] Results Social History Tobacco Use Types Packs/Day [...] Telephone Encounter - Vonnie Martinez MD - 12/20/2018 1524 EDT TC made by Dr. Maldonado to Reanna to discuss embryo progression. Per embryologist, many of the embryos had high degrees of fragmentation, and the recommendation was made for a day 3 embryo transfer. All questions were answered and she was instructed to arrive at 10:15 tomorrow for a 10:45 transferwith a semi-full bladder. Plan d/w Dr. Vega and Cherri. Vonnie Martinez MD Reproductive Endocrinology and Infertility Fellow documented in this encounter Plan of Treatment Not on file documented as of this encounter Visit Diagnoses Not on filedocumented in this encounter Care Teams Internet Security Specialist Relationship Specialty Start Date End Date [facility] Internal Medicine, Mp [address] [place] [address] PCP - General 11/03/15 10/01/23 documented as of this encounter
--- OUTSIDE RECORDS SUMMARY | 2024-09-16 01:38 | XMS_ITS | Encounter Summary ---
Author Organization [facility] Address [address] [place] [address] Care Team Providers Care Correctional Therapy Director Name Role Phone Internal Medicine, Primary Care Provi darrel Encounter Details Date Type Department Care Team (Late st Contact Info) Description 12/10/2018 8:56 EDT - 12/10/2018 23:59 EDT Hospital Encounter [facility] [address] [place] [address] Sue Hyman MD [address] [facility], Level [address] [place] [address] Discharge Disposition: Home or Self [...] this encounter Medications at Time of Discharge choriogonadotropin keke (OVIDREL) 250 mcg/0.5 mL injection [...] Code Departure Means Destination Home or Self Assisted documented in this encounter Plan of Treatment Not on file documented as of this encounter Visit Diagnoses Not on filedocumented in this encounter Care Teams Correctional Therapy Director Relationship Specialty Start Date End Date [facility] Internal Medicine, [place] [address] [place] [address] PCP - General 11/03/15 10/01/23 documented as of this encounter
--- OUTSIDE RECORDS SUMMARY | 2024-09-16 01:38 | XMS_ITS | Encounter Summary ---
Author Organization [facility] Address [address] [place] [address] Care Team Providers Care Diving Supervisor Name Role Phone [facility] Internal Medicine, Primary Care Provi darrel Encounter Details Date Type Department Care Team (Late st Contact Info) Description 12/10/2018 Phlebotomy Only [facility] [place] [address] [place] [address] Gyn Physician, Outpatient Encounter for assisted reproductive fertility cycle [...] Date/Time Associated Diagnosis Comments ESTRADIOL, ADULTS Routine 12/10/2018 9:1 1 EDT Encounter for assisted reproductive fertility cycle documented in this encounter Results * ESTRADIOL, ADULTS (12/10/2018 9:11 EDT) Estradiol 410 pg/ml 12/10/2018 11:07 EDT [facility] Comment: By day in cycle relative to LH peak: Follicular Phase (-12 to -4 days): ??20-144 Midcycle (-3 to +2 days): ? 64-357 Luteal Phase (+4 to +12 days): ??56-214 Postmenopausal: ??0 - 32 Cross reactivity with fulvestrant could lead to falsely elevated estradiol results in patients treated with this drug. Blood specimen (specimen) BLOOD SPECIMEN / Unknown 12/10/2018 9:11 EDT 12/10/2018 10:05 EDT us Maryan Torrse MD CHEMISTRY & BLO OD GAS ORDERABLES Final Result [facility] [address] [place] [address] documented in this encounter Visit Diagnoses Diagnosis Encounter for assisted reproductive fertility cycle- Primary Encounter for assisted reproductive fertility procedure cycle documented in this encounter Care Teams Diving Supervisor Relationship Specialty Start Date End Date [facility] Internal Medicine, [place] [address] [place] [address] PCP - General 11/03/15 10/01/23 documented as of this encounter
--- OUTSIDE RECORDS SUMMARY | 2024-09-16 01:38 | XMS_ITS | Encounter Summary ---
Author Organization [facility] Address [address] [place] [address] Care Team Providers Care Layout Artist Name Role Phone Internal Medicine, Primary Care Provi darrel Reason for Visit * Reason Onset Date Comments Results 01/03/2019 HCG#2 Encounter Details Date Type Department Care Team (Late st Contact Info) Description 01/03/2019 Telephone [facility] Reproductive Medicine & Infertility Center - [facility] [address] [place] [address] [place] [address] [place] [address] Results (HCG#2) Social History Tobacco Use Types Packs/Day Years [...] Miscellaneous Notes * Addendum Note - Micah Phillip MD - 01/05/2019 0855 EDTAddended by: MICAH PHILLIP on: 01/05/2019 08:55 Modules accepted: Orders * Telephone Encounter - Micah Phillip MD - 01/03/2019 1115 EDT Images from the original note were not included. TELEPHONE CALL Called [facility] lab for HCG result but tech reports no order was sent so patient went home. I was unaware so I faxed an order now to [phone]. Called patient to go to lab now and if there is no order when she gets there to page me directly. ----- Called back to [facility] for HCG drawn 45 -> 62 (38% rise) Called the patient with this result. Explained that this is less of a rise than we typically see for a normally developing , but we would like another HCG draw in two days prior to having her change any medications especially since her labs were drawn at two different hospitals. Patient verbalized understanding of our conversation and/or counseling. All questions answered to her satisfaction. Instructed to call with any new questions or concerns. Electronically signed by: Micah Phillip MD, PGY5 Fellow Reproductive Endocrinology & Infertility [facility] 01/03/2019 / 11:15 documented in this encounter Plan of Treatment Not on file documented as of this encounter Procedures Procedure Name Priority Date/Time Associated Diagnosis Comments QUANT BETA HCG, Routine 01/03/2019 documented in this encounter Results * (ABNORMAL) QUANT BETA HCG, (01/05/2019 12:03 EDT) Quant Beta HCG, Preg 151(H) <5 mIU/ml 01/05/2019 12:[address] [facility] Comment: Reference Range: Negative = <5 Indeterminate = 5-25 recommend repeat in 48 hours. Positive = >25 The results of this assay can be falsely lowered due to the consumption of Biotin. Blood specimen (specimen) BLOOD SPECIMEN / Unknown 01/05/2019 12:03 EDT 01/05/2019 12:09 EDT us Micah Phillip MD CHEMISTRY & BLOOD GAS ISAIASE RABLINDSAY Final Result [facility] [address] [place] [address] * (ABNORMAL) QUANT BETA HCG, (01/03/2019) HCG, External [address] [facility] Blood specimen (specimen) 01/03/2019 us Rg Provider CHEMISTRY & BLOOD GAS ISAIAS FERNANDEZ Final Result [facility] documented in this encounter Visit Diagnoses Diagnosis Amenorrhea- Primary Absence of menstruation documented in this encounter Care Teams Layout Artist Relationship Specialty Start Date End Date [facility] Internal Medicine, [place] [address] [place] [address] PCP - General 11/03/15 10/01/23 documented as of this encounter
--- OUTSIDE RECORDS SUMMARY | 2024-09-16 01:38 | XMS_ITS | Encounter Summary ---
Author Organization [facility] Address [address] [place] [address] Care Team Providers Care Web Application Developer Name Role Phone Internal Medicine, Primary Care Provi darrel Encounter Details Date Type Department Care Team (Late st Contact Info) Description 01/05/2019 11:48 EDT - 01/05/2019 23:59 EDT Hospital Encounter [facility] [address] [place] [address] [place] [address] [place], [place] [phone] Discharge Disposition: Auto Discharge Social History Tobacco [...] documented in this encounter Discharge Diagnoses Diagnosis N91.2 Amenorrhea, unspecified-N91.2[ICD-10-CM] documented in this encounter Medications at Time [...] the muscle daily. 3 Vial 2 01/01/2019 9 progesterone in oil 50 mg/mL injection Inject 1 mL into the muscle daily. 2 vial 11/06/2018 9 documented as of this encounter Discharge Disposition Disposition Code Departure Means Destination Auto Discharge Home documented in this encounter Plan of Treatment Not on file documented as of this encounter Procedures Procedure Name Priority Date/Time Associated Diagnosis Comments MULTIPLE DOC ORDERS Routine 01/05/2019 1 2:03 EDT documented in this encounter Results * MULTIPLE DOC ORDERS (01/05/2019 12:03 EDT) Multiple Doc Orders This report contains lab results ordered 01/05/2019 12:03 EDT [facility] Comment: by another provider which were collected and processed simultaneously with the orders you requested. If you have any questions, please call Customer Service at [phone]. TOPOGRAPHY UNKNOWN / Unknown 01/05/2019 12:03 EDT 01/05/2019 12:09 EDT us Micah Phillip MD CHEMISTRY & BLOOD GAS NIKOLAY VALENCIA Final Result [facility] [address] [place] [address] documented in this encounter Visit Diagnoses Not on filedocumented in this encounter Care Teams Web Application Developer Relationship Specialty Start Date End Date [facility] Internal Medicine, [place] [address] [place], [place] [address] PCP - General 11/03/15 10/01/23 documented as of this encounter
--- OUTSIDE RECORDS SUMMARY | 2024-09-16 01:38 | XMS_ITS | Encounter Summary ---
Author Organization [facility] Address [address] [place] [address] Care Team Providers Care Shrimp Packer Name Role Phone [facility] Internal Medicine, Primary Care Provi darrel Reason for Visit * Reason Onset Date Comments Coordination Of Care 10/13/2018 Encounter Details Date Type Department Care Team (Late st Contact Info) Description 10/13/2018 Telephone [facility] Reproductive Medicine & Infertility Center - [address] [address] Lanette Pagan RN Coordination Of [...] inactive pills and immediately open new pack 56 tablet 1 10/13/2018 9 documented in this encounter Miscellaneous Notes * Telephone Encounter - Lanette Pagan RN - 10/13/2018 1204 EST PC from [facility] to report menses started over the weekend on 10/11. Planning on IVF cycle in December. Reviewed to start continuous OCP's today, order sent to [facility] in [facility]. IVF calendar and power point emailed to patient to review. She plans to call and pay her global over the phone. After her medications have been ordered, she will plan to stop by clinic to obtain supplies, sign her financial contract, and meet with nursing to review protocol. She verbalized understanding and agreement. documented in this encounter Plan of Treatment Not on file documented as of this encounter Visit Diagnoses Not on filedocumented in this encounter Care Teams Shrimp Packer Relationship Specialty Start Date End Date [facility] Internal Medicine, [place] [address] [place] [address] PCP - General 11/03/15 10/01/23 documented as of this encounter
--- OUTSIDE RECORDS SUMMARY | 2024-09-16 01:38 | XMS_ITS | Encounter Summary ---
Author Organization [facility] Address [address] [place] [address] Care Team Providers Care Environmental Sciences Professor Name Role Phone Internal Medicine, Primary Care Provi darrel Encounter Details Date Type Department Care Team (Late st Contact Info) Description 12/12/2018 Results Only Imaging [facility] - [address] [phone] Sue Hyman MD [address] [place] [address], [address] 4 [place] [address] Social History Tobacco Use Types [...] Procedure Name Priority Date/Time Associated Diagnosis Comments INSTRUMENT AND CONTROL TECHNICIAN US EXAM 12/12/2018 8:23 EDT documented in this encounter Results * INSTRUMENT AND CONTROL TECHNICIAN US EXAM (12/12/2018 8:23 EDT) Anatomical Region Laterality Modality Other 12/12/2018 8:23 EDT 12/12/2018 8:36 EDT Narrative 12/12/2018 8:36 EDT Indication 33 yo with UEI, med day 7 on 08/12 GN. Uterus ======= Uterus: ?Appears normal Uterus position: ?? Anteverted Endometrium: ?? Trilaminar endometrium Endometrial thickness, total ?? 7.8 mm Right Ovary Rt ovary: ??Stimulated w/ multiple follicles consistent w/ hormonal therapy Rt ovarian follicle(s): ?Follicles identified D1 10.5 mm D2 9.4 mm D3 9.1 mm Mean ?? 9.7 mm Vol ?0.472 cm cubed D1 14.8 mm D2 11.1 mm D3 12.0 mm Mean ?? 12.7 mm Vol ?1.039 cm cubed D1 13.6 mm D2 11.3 mm D3 12.6 mm Mean ?? 12.5 mm Vol ?1.016 cm cubed D1 10.4 mm D2 10.5 mm D3 11.7 mm Mean ?? 10.8 mm Vol ?0.665 cm cubed Rt ovary other findings: ?? 12 < 10 mm Left Ovary Lt ovary: ??Stimulated w/ multiple follicles consistent w/ hormonal therapy Lt ovarian follicle(s): ?Follicles identified D1 12.0 mm D2 12.9 mm D3 6.6 mm Mean ?? 10.5 mm Vol ?0.534 cm cubed D1 10.0 mm D2 9.5 mm D3 9.1 mm Mean ?? 9.5 mm Vol ?0.454 cm cubed D1 13.4 mm D2 10.0 mm D3 13.4 mm Mean ?? 12.2 mm Vol ?0.933 cm cubed D1 9.8 mm D2 7.5 mm D3 9.4 mm Mean ?? 8.9 mm Vol ?0.360 cm cubed D1 10.9 mm D2 10.7 mm D3 11.7 mm Mean ?? 11.1 mm Vol ?0.718 cm cubed D1 11.2 mm D2 9.6 mm D3 9.5 mm Mean ?? 10.1 mm Vol ?0.535 cm cubed D1 12.9 mm D2 9.9 mm D3 14.4 mm Mean ?? 12.4 mm Vol ?0.962 cm cubed D1 11.8 mm D2 7.8 mm D3 10.2 mm Mean ?? 10.0 mm Vol ?0.495 cm cubed D1 11.8 mm D2 10.0 mm D3 11.6 mm Mean ?? 11.1 mm Vol ?0.714 cm cubed Lt ovary other findings: ?? 12 < 10 mm [place] Appears normal. No free fluid visualized. Impression Limited transvaginal follicular ultrasound-[id number] Anteverted uterus, trilaminar endometrium. Stimulated ovaries with early follicle growth. Follow-up Check E2, plan per IVF team. Comment ========= Ultrasound findings discussed w/patient. DATE OF SERVICE: 12/12/2018 Procedure Note Sue Hyman MD - 12/12/2018 Indication 33 yo with UEI, med day 7 on 08/12 GN. Uterus ======= Uterus: Appears normal Uterus position: Anteverted Endometrium: Trilaminar endometrium Endometrial thickness, total 7.8 mm Right Ovary Rt ovary: Stimulated w/ multiple follicles consistent w/ hormonal therapy Rt ovarian follicle(s): Follicles identified D1 10.5 mm D2 9.4 mm D3 9.1 mm Mean 9.7 mm Vol 0.472 cm cubed D1 14.8 mm D2 11.1 mm D3 12.0 mm Mean 12.7 mm Vol 1.039 cm cubed D1 13.6 mm D2 11.3 mm D3 12.6 mm Mean 12.5 mm Vol 1.016 cm cubed D1 10.4 mm D2 10.5 mm D3 11.7 mm Mean 10.8 mm Vol 0.665 cm cubed Rt ovary other findings: 12 < 10 mm Left Ovary Lt ovary: Stimulated w/ multiple follicles consistent w/ hormonal therapy Lt ovarian follicle(s): Follicles identified D1 12.0 mm D2 12.9 mm D3 6.6 mm Mean 10.5 mm Vol 0.534 cm cubed D1 10.0 mm D2 9.5 mm D3 9.1 mm Mean 9.5 mm Vol 0.454 cm cubed D1 13.4 mm D2 10.0 mm D3 13.4 mm Mean 12.2 mm Vol 0.933 cm cubed D1 9.8 mm D2 7.5 mm D3 9.4 mm Mean 8.9 mm Vol 0.360 cm cubed D1 10.9 mm D2 10.7 mm D3 11.7 mm Mean 11.1 mm Vol 0.718 cm cubed D1 11.2 mm D2 9.6 mm D3 9.5 mm Mean 10.1 mm Vol 0.535 cm cubed D1 12.9 mm D2 9.9 mm D3 14.4 mm Mean 12.4 mm Vol 0.962 cm cubed D1 11.8 mm D2 7.8 mm D3 10.2 mm Mean 10.0 mm Vol 0.495 cm cubed D1 11.8 mm D2 10.0 mm D3 11.6 mm Mean 11.1 mm Vol 0.714 cm cubed Lt ovary other findings: 12 < 10 mm [place] Appears normal. No free fluid visualized. Impression Limited transvaginal follicular ultrasound-[id number] Anteverted uterus, trilaminar endometrium. Stimulated ovaries with early follicle growth. Follow-up Check E2, plan per IVF team. Comment ========= Ultrasound findings discussed w/patient. DATE OF SERVICE: 12/12/2018 us Sue Hyman MD IMG US INSTRUMENT AND CONTROL TECHNICIAN ORDERABLES Fin al Result documented in this encounter Visit Diagnoses Not on filedocumented in this encounter Care Teams Environmental Sciences Professor Relationship Specialty Start Date End Date [facility] Internal Medicine, [place] [address] [place] [address] PCP - General 11/03/15 10/01/23 documented as of this encounter
--- OUTSIDE RECORDS SUMMARY | 2024-09-16 01:38 | XMS_ITS | Encounter Summary ---
Author Organization [facility] Address [address] [place] [address] Care Team Providers Care Sawmill Equipment Operator Name Role Phone [facility] Internal Medicine, Primary Care Provi darrel Reason for Visit * Reason Onset Date Comments Results 12/24/2018 Encounter Details Date Type Department Care Team (Late st Contact Info) Description 12/24/2018 Telephone [facility] - [address] [address] Lanette Pagan RN Results Social [...] Telephone Encounter - Vonnie Martinez MD - 12/24/2018 1318 EDT TC to [facility] to discuss embryo progression. Per Dr. Harley, 2 embryos frozen today on day 6, remainder of embryos discarded. All questions answered. Plan to follow up HCG next week. Vonnie Martinez MD Reproductive Endocrinology and Infertility Fellow * Telephone Encounter - Lanette Pagan RN - 12/24/2018 1291 EDT Reanna Isaac.: Day 0: Total number of eggs: 14 10 x MII -> ICSI 4 x IVF Day 1: 9 x 2PN (ICSI) 4 x 2PN (IVF) Day 3: ET: 8B+ (from ICSI); 4C (from IVF) Remaining embryos will be culture to Day 5: 4x 6C 1x 5C 4x 4C 2x 2C Day 5: From ICSI: 1x Partial compaction 7x cellular From IVF: 1 cav. M. 2x cellular PC from [facility] to inquire about her day 5 fertilization results. documented in this encounter Plan of Treatment Not on file documented as of this encounter Visit Diagnoses Not on filedocumented in this encounter Care Teams Sawmill Equipment Operator Relationship Specialty Start Date End Date [facility] Internal Medicine, [address] [place] [address] PCP - General 11/03/15 10/01/23 documented as of this encounter
--- OUTSIDE RECORDS SUMMARY | 2024-09-16 01:38 | XMS_ITS | Encounter Summary ---
Author Organization [facility] Address [address] [place] [address] Care Team Providers Care Distribution Coordinator Name Role Phone Internal Medicine, Primary Care Provi darrel Reason for Visit * Reason Comments Ultrasound IVF USE OM#9 Encounter Details Date Type Department Care Team (Late st Contact Info) Description 12/14/2018 8:30 EDT Office Visit [facility] Reproductive Medicine & Infertility Center - [facility] [address] [place], [place] [id number] Meliza Sena MD [address] [facility] 4 [place] [address] Encounter for assisted reproductive fertility [...] Progress Notes * Micah Phillip MD - 12/14/2018 0830 EDT Patient seen 12/14/2018 for IVF USE OM#9. See ultrasound report and USE flowsheet for full details. US discussed with attending Dr. Sena. Micah Phillip MD 12/14/2018 8:35 PGY5 [facility] Fellow documented in this encounter Plan of Treatment Not on file documented as of this encounter Procedures Procedure Name Priority Date/Time Associated Diagnosis Comments PROGESTERONE Routine 12/14/2018 9:02 EDT Encounter for assisted reproductive fertility cycle ESTRADIOL, ADULTS Routine 12/14/2018 9:0 2 EDT Encounter for assisted reproductive fertility cycle documented in this encounter Results * PROGESTERONE (12/14/2018 9:02 EDT) Progesterone 0.8 ng/ml 12/14/2018 10:00 EDT [facility] Comment: NON- FEMALES: follicular phase: ??<0.2-1.4 ng/mL luteal phase: 3.3-25.6 ng/ml postmenopausal: ??<0.2-0.7 ng/mL FEMALES: first trimester: 11.2-90.0 ng/ml second trimester: 25.6-89.4 ng/ml third trimester: 48.4-422.5 ng/ml ECTOPIC PREGNANCIES: consult pathologist Blood specimen (specimen) BLOOD SPECIMEN / Unknown 12/14/2018 9:02 EDT 12/14/2018 9:08 EDT us Micah Phillip MD CHEMISTRY & BLOOD GAS NIKOLAY VALENCIA Final Result Performing Organization Address [facility] Co de Phone Number [facility] [address] [place] [address] * ESTRADIOL, ADULTS (12/14/2018 9:02 EDT) Estradiol 2,207 pg/ml 12/14/2018 10:00 EDT [facility] Comment: By day in cycle relative to LH peak: Follicular Phase (-12 to -4 days): ??20-144 Midcycle (-3 to +2 days): ? 64-357 Luteal Phase (+4 to +12 days): ??56-214 Postmenopausal: ??0 - 32 Cross reactivity with fulvestrant could lead to falsely elevated estradiol results in patients treated with this drug. Blood specimen (specimen) BLOOD SPECIMEN / Unknown 12/14/2018 9:02 EDT 12/14/2018 9:08 EDT Micah Phillip MD CHEMISTRY & BLOOD GAS NIKOLAY VALENCIA Final Result Performing Organization Address City/[facility]/ZIP Co de Phone Number [facility] [address] [place] [address] documented in this encounter Visit Diagnoses Diagnosis Encounter for assisted reproductive fertility cycle- Primary Encounter for assisted reproductive fertility procedure cycle documented in this encounter Care Teams Distribution Coordinator Relationship Specialty Start Date End Date [facility] Internal Medicine, [address] [place] [address] PCP - General 11/03/15 10/01/23 documented as of this encounter
--- OUTSIDE RECORDS SUMMARY | 2024-09-16 01:38 | XMS_ITS | Encounter Summary ---
Author Organization [facility] Address [address] [place] [address] Care Team Providers Care Mat Puncher Name Role Phone Internal Medicine, Primary Care Provi darrel Encounter Details Date Type Department Care Team (Late st Contact Info) Description 12/16/2018 Orders Only [facility] - [facility] [address] [place], [place] [id number] Jeremias Maldonado MD [address] [address] Encounter for assisted reproductive fertility procedure cycle [...] Primary documented in this encounter Care Teams Mat Puncher Relationship Specialty Start Date End Date [facility] Internal Medicine, [place] [address] [place] [address] PCP - General 11/03/15 10/01/23 documented as of this encounter
--- OUTSIDE RECORDS SUMMARY | 2024-09-16 01:38 | XMS_ITS | Encounter Summary ---
Author Organization [facility] Address [address] [place] [address] Care Team Providers Care Brim Pouncer Name Role Phone Internal Medicine, Primary Care Provi darrel Encounter Details Date Type Department Care Team (Late st Contact Info) Description 01/07/2019 8:50 EDT - 01/07/2019 23:[address] [facility] [address] [place] [address] Maryan Jameson MD [address] [facility], [facility] 4 [place] [address] Discharge Disposition: Auto Discharge Social [...] documented in this encounter Discharge Diagnoses Diagnosis O09.811 Supervision of resulting from assisted reproductive technology, first trimester-O09.811[ICD-10-CM] documented in this encounter Medications at Time [...] on filedocumented in this encounter Care Teams Brim Pouncer Relationship Specialty Start Date End Date [facility] Internal Medicine, [place] [address] [place] [address] PCP - General 11/03/15 10/01/23 documented as of this encounter
--- OUTSIDE RECORDS SUMMARY | 2024-09-16 01:38 | XMS_ITS | Encounter Summary ---
Author Organization [facility] Address [address] [place] [address] Care Team Providers Care Bisque Placer Name Role Phone [facility] Internal Medicine, Primary Care Provi darrel Encounter Details Date Type Department Care Team (Late st Contact Info) Description 12/04/2018 Orders Only [facility] Reproductive Medicine & Infertility Center - [address] [address] Leonard Pagan RN Encounter for assisted reproductive fertility cycle (Primary [...] documented in this encounter Progress Notes * Leonard Pagan RN - 12/04/2018 1522 EDT s documented in this encounter Miscellaneous Notes * Addendum Note - Leonard Pagan RN - 12/04/2018 1522 EDTAddended by: LEONARD PAGAN on: 12/04/2018 15:28 Modules accepted: Orders documented in this encounter Plan of Treatment Not on file documented as of this encounter Results * ESTRADIOL, ADULTS (12/10/2018 9:11 EDT) [facility] Signature Estradiol 410 pg/ml 12/10/2018 11:07 EDT [facility] [...] 9:11 EDT 12/10/2018 10:05 EDT us Maryan Torres MD CHEMISTRY & BLO OD GAS ORDERABLES Final Result [facility] [address] [place] [address] documented in this encounter Visit Diagnoses Diagnosis Encounter for assisted reproductive fertility cycle- Primary Encounter for assisted reproductive fertility procedure cycle documented in this encounter Care Teams Bisque Placer Relationship Specialty Start Date End Date [facility] Internal Medicine, [place] [address] [place], [place] [address] PCP - General 11/03/15 10/01/23 documented as of this encounter
--- OUTSIDE RECORDS SUMMARY | 2024-09-16 01:39 | XMS_ITS | Clinical Summary ---
[place] [address] Care Team Providers Care Marble Machine Tender Name Role Phone None Primary Care Provider Unavailabl e Allergies No known active allergies Medications No known medications Active Problems Problem Noted Date Diagnosed Date Nevus 04/19/2014 Social History Tobacco Use Types Packs/Day Years Used Date Smoking Tobacco: Never Sex and Gender Information Value Date Recorded Sex Assigned at Not on file Gender Identity Not on file Sexual Orientation Not on file Plan of Treatment Health Maintenance Due Date Last Done Comments HIV screen 2004 Hepatitis C Screening 2004 Hepatitis B vaccine (0-59 yrs) (1) 2005 Tetanus/Diphtheria/Pertussis Vaccines (1 - Tdap) 06/12 HPV test 2016 PAP Smear 2016 Covid-19 Vaccine ( - 2023- season) 2024 Influenza (Flu) vaccine (1 o f 1 - Influenza standard series) 04/12/2024 Care Teams Marble Machine Tender Relationship Specialty Start Date End Date None None PCP - General 08/21/24
--- OUTSIDE RECORDS SUMMARY | 2024-09-16 01:39 | XMS_ITS | Encounter Summary ---
Author Organization [facility] Address [address] [place] [address] Care Team Providers Care Warehouse Distribution Manager Name Role Phone Internal Medicine, Primary Care Provi darrel Reason for Visit * Reason Comments Ultrasound Gynecologic Exam Encounter Details Date Type Department Care Team (Late st Contact Info) Description 08/27/2018 8:00 EST Office Visit [facility] [address] [phone] Meliza Sena MD [address] [facility], Level [address] [place] [address] Encounter for assisted reproductive fertility cycle (Primary Dx); Cervical cancer screening Discharge Disposition: Auto Discharge Social History Tobacco [...] documented in this encounter Discharge Diagnoses Diagnosis Z12.4 Encounter for screening for malignant neoplasm of cervix-Z12.4[ICD-10-CM] documented in this encounter Discharge Disposition Disposition Code Departure Means Destination Auto Discharge documented in this encounter Progress Notes * Micah Phillip MD - 08/27/2018 0800 EST Images from the original note were not included. Patient was seen for follicular ultrasound today. Please see ultrasound report for full details. Prior to the ultrasound and updated a Pap smear was collected in a standard fashion. This was sent for cytology and co-testing. Patient tolerated the Pap smear and ultrasound well. Electronically signed by: Micah Phillip MD, PGY5 Fellow Reproductive Endocrinology & Infertility [facility] 08/27/2018 / 12:46 documented in this encounter Miscellaneous Notes * Addendum Note - Meliza Sena MD - 08/27/2018 0800 ESTAddended by: MELIZA SENA on: 08/27/2018 14:26 Modules accepted: Orders * Addendum Note - Meliza Sena MD - 08/27/2018 0800 ESTAddended by: MELIZA SENA on: 09/01/2018 15:24 Modules accepted: Orders documented in this encounter Plan of Treatment Scheduled Orders Name Type Priority Associated Diagnoses Orde r Schedule PAP TEST- ORDER ONLY Pathology Routine Cervical cancer screening Ordered: 08/27/2018 documented as of this encounter Visit Diagnoses Diagnosis Encounter for assisted reproductive fertility cycle- Primary Encounter for assisted reproductive fertility procedure cycle Cervical cancer screening Screening for malignant neoplasm of the cervix documented in this encounter Care Teams Warehouse Distribution Manager Relationship Specialty Start Date End Date [facility] Internal Medicine, [address] [place] [address] PCP - General 11/03/15 10/01/23 documented as of this encounter
--- OUTSIDE RECORDS SUMMARY | 2024-09-16 01:39 | XMS_ITS | Encounter Summary ---
Author Organization [facility] Address [address] [place] [address] Care Team Providers Care Stewardess Supervisor Name Role Phone [facility] Internal Medicine, Primary Care Provi darrel Reason for Visit * Reason Onset Date Comments Coordination Of Care 05/27/2018 Encounter Details Date Type Department Care Team (Late st Contact Info) Description 05/27/2018 Telephone [facility]ductive Medicine [facility] Infertility [facility] - [address] [address] Lanette Pagan RN Coordination Of [...] Refills Last Filled Start Date End Date choriogonadotropin keke (OVIDREL) 250 mcg/0.5 mL injection solution Inject 250 mcg into the skin daily. 1 Syringe 2 05/27/2018 01/25/2019 clomiPHENE (CLOMID) 50 mg tablet Take 1 Tab by mouth daily. Take cycle days 5-9 5 Tab 05/30/2018 06/23/2018 documented in this encounter Miscellaneous Notes * Telephone Encounter - Lanette Pagan RN - 05/27/2018 0846 EDT Intrauterine Insemination Cycle number: 1 Plan: cc50 5-9/USF/HCG/IUI 1.) Call from patient- Date: 05/27/2018 Time: 8:46 Previous IUI: no A.) Attended injection site technique class: yes B.) Pre-certfied: yes C.) Consent signed by patient & partner to use specimen: no- need to sign at first IUI D.) Aware of current costs: yes E.) GC/ Chlamydia lab done: yes 2.) Last Menstrual Period: 05/26/18 WNL?: yes 3.) OK to proceed? yes A.) Ovulation Induction Medication: clomid Dose: 50 mg Cycle days: 5-9 [facility]acy: [facility] Refills:0 B.) Human Chorionic Gonadotropin (HCG) 10,000 unit subcutaneous injection Pharmacy: [facility] Refills: 2 D.) USF scheduled- Cycle Day: 11 Date: 06/05/18 Time: 0820 Lanette Pagan RN 05/27/2018 8:46 documented in this encounter Plan of Treatment Not on file documented as of this encounter Visit Diagnoses Not on filedocumented in this encounter Care Teams Stewardess Supervisor Relationship Specialty Start Date End Date [facility] Internal Medicine, [place] [place] [address] PCP - General 11/03/15 10/01/23 documented as of this encounter
--- OUTSIDE RECORDS SUMMARY | 2024-09-16 01:39 | XMS_ITS | Encounter Summary ---
Author Organization [facility] Address [address] [place] [address] Care Team Providers Care Assistant Women'S Basketball Coach Name Role Phone Internal Medicine, Primary Care Provi darrel Encounter Details Date Type Department Care Team (Late st Contact Info) Description 08/27/2018 Results Only [facility] Reproductive Medicine & Infertility Center - [address] [address] Micah Phillip MD [address] [place] [place] [phone] Social History Tobacco Use Types Packs/Day Years [...] Procedure Name Priority Date/Time Associated Diagnosis Comments PAP TEST- RESULT ONLY Routine 08/27/2018 0:00 EST documented in this encounter Results * PAP TEST- RESULT ONLY (08/27/2018 0:00 EST) Pathology Report: CYTOPATHOLOGY REPORT Reports generated via electronic interface contain original data; however they are lacking the format of the original report. Caution should be taken when reading/interpreti ng unformatted reports. Name: ? DIMAS CUETO ? Accession #: ? [id number] ? : ? 1985 (Age: 33) ??F ?Collect Date: ? 08/27/2018 ? Location: ? [facility] ? Receive Date: ? 08/27/2018 ? Provider: MICAH PHILLIP MD Copy to: QUOC GUERRERO MD ? Final Report SPECIMEN ADEQUACY ? Satisfactory for Evaluation - transformation zone component present GENERAL CATEGORIZATION ? Negative for Intraepithelial Lesion or Malignancy ?? Last Menstrual Period: 08/19/18 Other: Additional clinical information: Z12.4 V76.2 Specimen/Source: ??Pap Test, Cervix/Endocervix, ThinPrep Imaging System with manual evaluation Document reviewed and electronically signed by: ? BORA Mondragon(ASCP) ? Report ??Date: 08/29/2018 16:30 HPV with Pap Test ? Date Ordered: ? 08/29/2018 ? Status: ?? Signed Out ?Date Complete: ? 09/01/2018 ? By: ??System Interface ? Date Reported: ? 09/01/2018 ? Interpretation RESULT: Negative for HPV. No E6 or E7 mRNA is detected from HPV types 16,18,31,33,35, 39,45,51,52,56,58, 59,66, and 68 by master hearth technician mediated amplification. Comments Document reviewed and electronically signed by: ? System Interface ? Report date: 09/01/2018 By the signature above, the attending physician certifies that he/she has personally conducted a gross and/or microscopic examination of the described specimens and rendered or confirmed the above diagnosis. End of Report [facility] 08/27/2018 08/27/2018 us Micah Phillip MD PATHOLOGY ORDERABLES Final Result Performing Organization Address City/State/[facility] Co de Phone Number [facility] [address] [place] [address] documented in this encounter Visit Diagnoses Not on filedocumented in this encounter Care Teams Assistant Women'S Basketball Coach Relationship Specialty Start Date End Date [facility] Internal Medicine, M[address] [place] [address] PCP - General 11/03/15 10/01/23 documented as of this encounter
--- OUTSIDE RECORDS SUMMARY | 2024-09-16 01:39 | XMS_ITS | Encounter Summary ---
Author Organization [facility] Address [address] [place] [address] Care Team Providers Care Canvass Manager Name Role Phone Internal Medicine, Primary Care Provi darrel Reason for Visit * Reason Comments Other Encounter Details Date Type Department Care Team ([facility] Contact Info) Description 05/18/2018 Documentation Visit [facility] Reproductive Medicine & Infertility Center - [facility] [address] [place] [address] Vonnie Martinez MD [address] [phone] Social History Tobacco Use Types Packs/Day Years [...] Progress Notes * Vonnie Martinez MD - 05/18/2018 1020 EDT SA results from Tremaine Espinoza, spouse, 05/01/2018: Component Latest Ref Rng & Units 05/01/2018 Partner Reanna Phillip Time Received 1510 Received by lyb Examined at 1530 Viscosity Norm/Viscous Low viscosity pH 7.2 - 9 8.5 Specimen Volume >=1.5 ml 3.2 Sperm Count >=15 M/ml 63.3 Total Sperm Count >=39 Million 202.5 Motility >=40% 62 Motility, Speed of Progression(graded),POC 3+UndulatingRapidProg Total Motile Sperm <=10mill do IUI scrn million 125.6 Normal Forms >=4 % 9 Semen Comment Permission to discuss results with partner over the phone: YES documented in this encounter Plan of Treatment Not on file documented as of this encounter Visit Diagnoses Not on filedocumented in this encounter Care Teams Canvass Manager Relationship Specialty Start Date End Date [facility] Internal Medicine, [place] [address] [place] [address] PCP - General 11/03/15 10/01/23 documented as of this encounter
--- OUTSIDE RECORDS SUMMARY | 2024-09-16 01:39 | XMS_ITS | Encounter Summary ---
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) - New Request Specialty Diagnoses / Procedures [facility] Referred To Contact Diagnoses Encounter for fertility testing Procedures TRAFFIC COUNTER US HYSTEROSONOGRAPHY Maryan Jameson MD Phone: tel: fax: Referral ID Status Reason Start Date Expiration Date V isits Requested Visits Authorized [id number] New Request 05/01/2018 1 1 Reason for Visit * Reason Comments Infertility TTC 14months - would like to know why Encounter Details Date Type Department Care Team (Late st Contact Info) Description 05/01/2018 13:45 EDT Office Visit [facility] - [address] [address] Maryan Jameson MD [address] [place] [address] [address] [place] [address] Encounter for fertility testing (Primary Dx); Screen for STD (sexually transmitted disease) Discharge Disposition: Auto Discharge Social History Tobacco [...] Sign Reading Time Taken Comments Blood Pressure 104/76 05/01/2018 1333 EDT Pulse - - Temperature - - Respiratory Rate - - Oxygen Saturation - - Inhaled Oxygen Concentration - - Weight 59 kg (130 lb) 05/01/2018 1333 EDT Height 160 cm (5' 3) 05/01/2018 1333 EDT Body Mass Index 23.03 05/01/2018 1333 EDT documented in this encounter Functional Status [...] documented in this encounter Discharge Diagnoses Diagnosis Z31.41 Encounter for fertility testing-Z31.41[ICD-10-CM] Z11.3 Encounter for screening for infections with a predominantly sexual mode of transmission-Z11.3[ICD-10-CM] documented in this encounter Patient Instructions * Patient Instructions* Maryan Thompson MD - 05/01/2018 13:45 EDT Images from the original note were not included. [facility] Women???s [facility] Care Services Supervisor [facility] [employer] [facility]-Level 4 [facility] Preconception Carrier Screening Your providers have partnered with our genetic specialists to offer comprehensive preconception care and the option of genetic carrier screening. A genetic specialist is a health professional with special training in genetics and counseling who can provide expert advice about genetic disorders, risk assessment and genetic testing. This appointment can be scheduled through our secretaries and IVF nursing staff. During this appointment your genetic specialist will help find out if you are at increased risk of passing on a a genetic disorder by obtaining a family health history. This involves asking certain questions about your health and your family's health history. They will want to know if: 1.) you have a genetic disorder 2.) you already have a child who has a genetic disorder 3.) there is a family history of a genetic disorder 4.) you belong to an ethnic group that has a high rate of carriers of certain genetic disorders What is a carrier? A carrier is a person who has no symptoms (or only mild symptoms) of a disorder but can pass on thegene for that disorder to his or her child. What is genetic carrier screening? Genetic carrier screening is testing that you can have before you become to help predict your chances of having a child with a genetic disorder. How is carrier screening done? Carrier screening involves testing a sample of blood or saliva. The sample is sent to the lab for testing. Typically the partner who is most likely to have the defective gene is tested first. If testresults show that the first partner is not a carrier, then often no additional testing is needed. If test results show that the first partner is a carrier, the other partner is tested. When can sorter screening be done? You can have carrier screening before (preconception) or during . If it is done before , you have a broad range of options to make decisions. What screening tests are available? Carrier tests are available for a number of diseases, including cystic fibrosis, fragile X syndrome, sickle cell disease, spinal muscular atrophy, and Jason-sachs disease. You may chose no screening, or to test for a few conditions or have expanded carrier screening testing for 100+ conditions. What tests are currently recommended? The [place] [employer] (ACOG) and the [place] [employer] recommends all women undergo routine screening for Cystic Fibrosis (CF) and Spinal Muscular Atrophy. Which ethnic groups have an increased risk for genetic disorders and what carrier screening tests are offered to these groups? The high risk ethnic groups are the following: Non- white individuals should be offered cystic fibrosis carrier screening. Cystic Fibrosis (CF): An inherited disorder that causes problems with digestion and breathing, symptoms range from mild to severe. CF is a chronic and fatal disease, yet with treatment today individuals with severe forms may live into their mid-life. Most carriers have no symptoms of CF or a family history of CF. The incidence of CF in the [place] is ~ 1 in 3,600, but the carrier frequency for individuals may be as low as 1 in 23 (Ashkenazi Cheondoism), 1 to 25 (), or 1 in 58 (). If both parents are carriers, the risk of having an affected child is 1 in 4 (25%). People of Eastern [place] descent (Ashkenazi Jews) should be offered screening for Jason-Sachs disease, River disease, familial dysautonomia, and cystic fibrosis. Individuals can ask about screening for other disorders. Carrier screening is available for mucolipidosis IV, Dar-Pick disease type A, Fanconi anemia group C, Fisher syndrome, and Gaucher disease. People of , Mediterranean, and Southeast heritage should be offered screening for thalassemias and sickle cell disease. Any ethnic group-Spinal Muscular Atrophy (SMA). SMA is characterized by severe muscle weakness and progressive loss of voluntary muscle control. In severe cases, SMA results in before two years of age. Most carriers have no symptoms or family history of SMA. The incidence of SMA is about 1 in 10,000 in the [place]. Carrier frequency depends on ethnicity but maybe as low as 1 in 47 () or 1 in 59 ( Turkish). If both parents are carriers, the risk of having an affected child is 1 in 4 (25%). Expanded Carrier Screening We have partnered with [employer] (www.[employer]evio/services/btwcxc-qrav-bigcjd/) to offer those patients who desire expanded carrier screening. This testing screens for a 100 plus genes that an individual may carry. We recommend you make this decision with your health care team and with the assistance of a genetics counselor. What can the results of a carrier screening test tell me? A genetic counselor or your health care provider will use the results to calculate the change of you having a child with a genetic disorder. For most of the disorders for which carrier screening is available, if both parents are carriers, there is a 25% chance that the child will get the abnormal gene from each parent and will have the disorder. There is a 50% chance that the child will be a carrier of the disorder-just like the carrier parent. What does it mean to be screen negative If you receive a screen negative results for a genetic disorder, this means you are now less likelyto carry the gene. If a couple has one who is screen positive and carries the gene and the other isscreen negative for the same disorder, your chances have been greatly lowered to have a child with the disorder.However, there is still a chance you can have a child with this genetic disorder. What decisions do I need to make if I am a carrier? If you or your partner learn that both of you are carriers of a genetic condition, you have severaloptions. You may chose to become , with the option of considering diagnosis duringthe . You may chose in vitro fertilization with preimplantation genetic diagnosis to test embryos and replace only those that do not carrier the disorder. You may chose to use donor eggs or donor sperm. You may chose not to become , or to adopt. What is the Genetic Information Nondiscrimination Act (SUNNY)? SUNNY is a law that makes it illegal for health insurers to require genetic testing results or use results to make decisions about coverage, rates, or preexisting conditions. Employers are prohibited from using genetic information for hiring,firing, or making any other decisions about a person's employment. Carrier screening is often covered by insurance, even if other aspects of reproductive health care,such as IVF, are not covered. Women???s Health Care Services [facility] Supervisor [employer] [facility] - Level 4 [facility]abel Evaluating Fertility and Preconception Care Welcome. Your providers [facility] at [facility] welcome you. We have provided you with several resources below to help you understand the counseling you will receive, the process of care, and the suggested testing. Fertility and Age Fertility is defined as the capacity to produce a child. The likelihood of conception is highest within the first few months of unprotected intercourse or exposure to sperm. Approximately 80% of couples will conceive within the first 6 months of attemptingconception. Relative fertility is decreased by about half among women in their late 30s as comparedwith women in their early 20s. Fertility varies among populations of people but declines with age for both men and women, but the effects of age are the most pronounced for women. For most women the chance of conception decreases significantly after the age of 35. Men also experience a decrease in fertility after the age of 35, but the effects do not appear to be as pronounced until after the age of 50. Can lifestyle affect fertility? Your lifestyle can affect your baby's health during . The ideal time to take a close look at your lifestyle and make changes is before . Lifestyle factors can play a role in infertility. For women, being underweight, being overweight, or excessive exercise may be associated with infertility. A Healthy Diet A healthy diet is important at all times in your life, but it is vital during . To be sure that your diet gives you enough nutrients, you need to know which ones are in the foods you eat. The U.S. Department of Agriculture's food- planning guide called MyPlate (www.choosemyplate.gov) can help you make healthy food choices. Ingestion of some fish, which contain higher amounts of mercury, can affect the development of the nervous system of a fetus. During the treatment and after is established you should avoid eating these fish- shark, swordfish, regina mackerel, tilefish and canned tuna fish. You should limit the intake of all other fish to 12 oz. Per week. Weight Concerns To stay healthy, you should keep your weight at a level that is best for your height. A person's body mass index BMI is the number calculated from height and weight that is used to determine whether a person is underweight, normal weight, overweight, or obese. You can find out your BMI by using an online calculator at web sites such as www.nhlbi.nih.gov/health/educational/lose_wt/BMI/bmicalc.htm. We recommend you maintain a BMI between 19-25 to optimize your chance for , and to give yourself the best chances for a healthy . Getting Ready for Smoking, drinking, and drug use during can have harmful effects of a baby's health.Drinking alcohol at moderate to heavy levels (> 2 drinks/day) and smoking may also make it difficult for a women to get . Alcohol Alcohol intake can impair male and female fertility. Women trying to conceive should completely avoid alcohol or limit use to the first 2 weeks of the menstrual cycle. During alcohol is absolutely contraindicated. Smoking Smoking has a substantial effect on fertility. If you smoke, you must stop! The negative effects ifsmoking on general health are well known (e.g., heart disease, cancer, chronic lung disease). Womenwho smoke during are at increased risk of complications. Men who smoke have decreased fertility. Studies suggest a ling between parental tobacco use during and after and an increased risk of childhood cancers in their offspring. You must stop smoking before you enter into fertility care. If you can not stop smoking on your ownthen you should contact your primary care provider. Women who smoke are significantly more likely to be infertile, and reach menopause by 1-4 years earlier (suggesting a faster decline in the number of eggs. Smoking also substantially increases the rate of miscarriage. You should also stop smoking while you are attempting to become and not smoke at all during . For men, smoking, heavy drinking, marijuana use, anabolic steroid use, and use of over the counter hormone containing supplements and medications may reduce sperm counts and movement. Smoking can lead to erectile dysfunction. Caffeine High levels of caffeine consumption (> 500 mg/day, > 5 cups/day) have been associated with infertility. During drinking 2-3 cups of a caffeine have been associated with an increased risk of miscarriage. We recommend that women limit their intake to one to two small caffeinated beverages a day. Medical Conditions If you have any chronic illness or conditions-such as diabetes, high blood pressure, depression--your provider will want to discuss these with you and adopt a plan to help you have a healthy . Your team in Reproductive Medicine and Infertility have partnered with our Maternal Medicine service to provide you with comprehensive care. If you have a medical condition we may suggest you consult with one of our partners to help discuss changes that bring your condition under control before you try to become . What are other elements of preconception care? Medication Use All non-fertility medications that have been prescribed should be discussed with your physician. Itis also important that the physician who prescribed these mediations be made aware that you are attempting . You should avoid taking aspirin and aspiring-like compounds (auch as Advil, Aleve, Ibuprofen, Motrin). Vitamin Supplements It is a good idea to start taking a vitamin supplement before . These vitamin supplements are available without a prescription. They contain all the recommended daily vitamins and minerals you will need before and during . One of the most important vitamins needed before and during is folic acid. Folic Acid helps prevent neural tube defects (NTDs) when taken before and during . It is recommended thatall women (even if they are not trying to get ) consume 400 micrograms of folic acid a day by taking a vitamin supplement containing folic acid. Some women, such as those who have had a previous child with a NTD, should take 4 mg of folic acid daily-10 times the amount normally recommended--for 1 month before conception and during the first three months of as a separate supplement. Iron also is important during . It is used to make the extra blood needed to supply oxygento the baby. Not getting enough iron can be a problem for some women. Before , it is recommended that all women choose foods that have a specific kind of iron called heme iron. This type of iron is found in animal sources of foods and is more easily absorbed by the body. Iron also can be absorbed more easily if iron-rich foods are eaten with vitamin C-rich foods, such as citrus fruits. Excessive intake of vitamin A increases the chance of defects. vitamins and rwge-ibr-tfggmqd multivitamins usually contain 5,000-8,000 IU of vitamin A, which is a safe dose. However, your daily intake should not excess 8,000 IU. Vaccination Vaccination (also called immunization) can prevent some infections. Some vaccines are safe to use in . It is important to know which vaccines you may need and to get them before becoming . We recommend that all women receive an annual influenza vaccine. Genetic Screening Some health conditions occur more often in certain families or ethnic groups. These conditions are called genetic or inherited disorders. We have partnered with our genetic specialist to help couplesunderstand their chances of having a baby with an inherited disorder. Exercise The benefits of exercise on general health and mental well being are well established. Further, moderate exercise during is beneficial. It is best to have an exercise routine in place before getting . If you are not used to a lot of exercise, discuss safety guidelines with your health care provider ahead of time. However, the medications used to stimulate the ovaries can cause ovarian cyst formation and ovarian enlargement. Therefore, we would advise you to avoid high impact exercises such as kickboxing. Other exercises such as bicycle riding, walking, elliptical and swimming are acceptable. Routine Medical Care You should have a yearly visit with your primary care physician or pharm spec for a routine exam.Your yearly exam should be faxed to your nurse, prior to treatment. A pap smear must be up to date at the recommendation of your doctor. A baseline mammogram to screen for breast cancer should be performed between the ages of 35-40 and after age 40 the mammogram should be done at least every other year. If the Pap smear is not up to date or you need to schedule a mammogram, you should contact your pharm spec or primary care physician. Travel and Zika Virus: Zika Virus can be passes from a woman to her fetus, and infection during can cause certain defects. Zika primarily spreads through infected mosquitoes and it can also be transmitted through sex. There currently is no vaccine to prevent or medicine to treat Zika. The CDC recommends precautions for women and their partners thinking about , and to consider avoiding nonessential travel to areas infected with Zika if you are thinking about having a baby in the near future. If your partner travels to an area with Zika, you should protect yourself from getting Zika during sex. For the most recent information on Zika virus and : www.cdc.gov/zika Patient education video: www.acog.org/patients/cgcfdnb-jbbmtjqma-ebvzqb/hplp-lhdkl-zsj- Frequency of intercourse The optimal frequency of intercourse is a matter of preference, but it appears that optimal timing for is every 1-2 days in the 6 days leading up to, and including the day of ovulation. [place] is most likely to result in when it occurs within the 3 day interval ending on the day of ovulation. Does lying down or position at intercourse make a difference in conception? Lying flat or with your hips elevated has no effect on conception rates. What are recommended lubricants? Although some lubricants adversely affect sperm parameters in vitro, the use of lubricants in couples attempting conception has been shown not to affect the chance of conception in any one month of trying. Given the differing effects of lubricants on sperm function in a test tube, when use of lubricants is desired, we recommend couples consider using very small amounts of mineral oil, canola oil, or commercially available products containing hydroxyethylcellulose as a base such as Pre-Seed ([facility]ertility) and ConceivEase (Reproduce Laboratory). What are causes of infertility? Both male and female factors can contribute to infertility. Female factors may involve problems with ovulation, the reproductive organs, or hormones. Make factors often involve problems with the amount or health of the sperm. What tests will be ordered to evaluate possible causes of fertility? If your testing has not already been scheduled our secretarial staff can help you schedule the appropriate appointments. What are the next steps? Beyond the initial history and physical exam, there are several diagnostic tests that may be ordered. Please keep in mind some of these tests are timed based on the timing of your menstrual cycle, thus it may take a few weeks, or a few months to complete the testing. We want the best chance for you to conceive, and it is important the lab and test results be obtained appropriately. Not all patients will require all of these tests, as the testing is altered based on your individual medical history. By convention, menstrual cycle day 1 (CD 1) is the first day of full flow of your cycle. Do not count spotting before a period as the first cycle day. Some tests are timed based on the cycle and some are not. Below is a list of potential tests you may have. When possible we try to group these tests together to minimize the number of appointments and disruption in your work and personal lives. All of this testing may seem overwhelming, but we are here to help, and answer questions. The process of evaluation may take a few weeks, or may take a few months. Factors that may influence the speed and extent of evaluation include: Patient preference Timing of your menstrual cycle The availability of the appointments to schedule the tests The availability of the appropriate consultants for your care Confirmation of your insurance coverage 1.) Preconception lab work: A complete blood count, screening tests for hepatitis, HIV, and syphilis, immune status to varicella (chicken pox) and Syriac measles (rubella). 2.) Hormonal testing A.) Thyroid-stimulating hormone (TSH) B.) Prolactin level (PRL) C.) May include hormonal testing for Polycystic Ovary Syndrome (PCOS) (for some patients only) 3.) Tests for 'ovarian reserve' (to indirectly assess the quality and quantity of eggs) 'Ovarian reserve' is concept that describes your reproductive potential as a function of the number, and quality, of oocytes (eggs). There is no direct way to measure ovarian reserve, thus the testing we do are indirect measures and give us an estimate of the number and perhaps quality of the oocytes (eggs). Decreased or diminished ovarian reserve (LESLIE) describes women of reproductive age having regular menses whose response to ovarian stimulation or fecundity (ability to conceive) is reduced compared tothose women of comparable age. A.) Menstrual Cycle day 2, 3, or 4 serum follicle stimulating hormone level (FSH) and Estrogen hormone Measurements (blood test) B.) Antral follicle count: early follicular phase (ultrasound tests CD 4-10) Antral follicle Count: Your provider may order an ultrasound to evaluate the size and number of developing follicles, and a total count of the number of small follicles in each ovary (antral follicle count). C.) Anti-Mullerian Hormone (AMH) level (any time in the cycle) 3.) SEMEN ANALYSIS: A semen analysis is the cornerstone laboratory evaluation of the infertility male and helps to define the severity of the male factor for infertility. For patients with a male partner, this is an essential piece of the infertility workup and providesinformation about the number, movement, and shape of the sperm, all of which can affect the sperm'sability to fertilize an egg. All men should have a semen analysis regardless of whether they have fathered a child in the past. Other testing can be considered based on the results of the semen analysis and may include hormonaland genetic testing. You should schedule an appointment for the semen analysis with our board of education secretary. The specimen will be evaluated in our reproductive science lab at [facility] (not the main laboratory). You should abstain from an ejaculation for an interval of 2 days, but not more than 5 days in advance of the test. Specimens should be collected by means of masturbation into a specimen cup, or a very clean container. You may use water (only) for lubrication at the time of collection. Ideally the specimen is collected at the laboratory -you will need a specific appointment time for collection in our collection room. If collection by masturbation is not possible than a specimen may be obtained by intercourse with the use of a special semen collection condom that does not contain substances toxic to sperm. If a specimen is collected at home, the specimen should be kept at room, or body temperature, during transport and examined in the laboratory within 1 hour of collection You must bring a picture ID with you to the appointment. 4.) Transvaginal Ultrasound: A transvaginal ultrasound will be performed to evaluate the ovaries, uterus, and fallopian tubal patency study (HyCoSY), including a 3D assessment of the uterine cavity. The reasons we do this test are many but common reasons include an evaluation for: Uterine Abnormalities An ultrasound of the uterus can be utilized to diagnosis developmental anomalies (shape changes) ofthe uterus, acquired abnormalities such as intrauterine scarring, or other abnormalities such as fibroids or polyps. Tubal Patency (test to evaluate if your fallopian tubes are open and appear normal) Fallopian tubal disease is an important cause of infertility. Accurate diagnosis and effective treatment for tubal obstruction can be diagnosed with one of the following techniques: Hysterosalpingogram (HSG), Owkcdfo-uwgkdxhk-bykdbtvg sonography (HyCoSy), laparoscopy. We commonly use the HyCoSy procedure to evaluate the fallopian tubes. WHAT IS A HYCOSY PROCEDURE? A test for tubal patency (open). Slqdacfkoylcmmt-teqxboex-doirzwdgab (usually shortened to HYCOSY) is a simple and well-tolerated outpatient ultrasound procedure used to assess the patency of the fallopian tubes, as well as detect abnormalities of the uterus and the endometrium (uterine lining). The test requires the use of a contrast agent to visualize the patency of the fallopian tubes. Manywomen will be able to have the test performed simply using an agitated saline / air mixture. The HyCoSy procedure is a safe and reliable alternative to the conventional hysterosalpingogram (HSG) which uses X-rays. No radiation or iodinated contrast material is used for a HyCoSy test. WHY WOULD I NEED A HYCOSY PROCEDURE? Investigation of infertility is the main reason for a woman to be referred for a HyCoSy procedure. Occluded (blocked) fallopian tubes are a common cause of infertility. Tubal occlusion can occur with a number of conditions including previous pelvic infection, severe endometriosis, previous appendicitis and pelvic adhesions. Many women will be unaware that these conditions are present and that tubal blockage has occurred. A normal fallopian tube is usually difficult to see with regular ultrasound. Even if the fallopian tube is blocked, it may still be difficult to see on regular ultrasound unless it is also filled with fluid (forming what is known as a hydrosalpinx). This is why a special testusing a contrast agent is useful, as it helps the physician to visualize the fallopian tubes and assess whether they are patent (working). DOES THE HYCOSY PROCEDURE ONLY EXAMINE MY TUBES? The HyCoSY procedure allows integrated assessment of the fallopian tubes, the uterus and endometrial cavity, and the pelvis. The initial part of the HyCoSy procedure uses saline to assess the endometrial cavity for pathology. The doctor will be looking for problems such as endometrial polyps, submucosal fibroids and congenital uterine abnormalities (such as a uterine septum). The HyCoSY procedure also allows concurrent ultrasound review of the remaining pelvis, such as the ovaries. HOW DO I PREPARE FOR A HYCOSY? It is important that you are not when you have this test, as the procedure can disturb theimplantation of the embryo. If there is a possibility that you are , the procedure will need to be postponed until your next menstrual cycle. The best time to perform a HyCoSy is just after your period has finished, approximately day 4 to day 10 of a regular 28-day (monthly) menstrual cycle (the first day of your period is counted as day 1). If your menstrual cycle is shorter than 28 days (for example, you usually have 21 days between periods), you will need to have the test earlier in the cycle. If your menstrual cycle is longer than 28 days, but still regular (for example, you usually have 35days between periods), you may be able to have the test later in the cycle if that is more convenient. If your periods are infrequent or irregular, please discuss the optimal time for this test with your doctor or our nursing staff. We may suggest you take a medication to induce a menses and shed a thickened zipper lining folder so that the procedure can be properly timed and that excessive zipper lining folder does not prevent a clear view of the uterine cavity. DO I NEED PAIN RELIEF FOR THIS TEST? The level of pain experienced during the HyCoSy is variable, but most women experience only mild tomoderate cramping period-type discomfort during the test. If you do not have an allergy to ibuprophen, we suggest you take two (200 mg) tablets 60 minutes before the procedure, to minimize discomfort. No anesthetic is required for this procedure. DO I NEED A FULL BLADDER FOR THIS TEST? You do not need a full bladder for this test. We will ask you to completely empty your bladder before the test begins. If you are booked for both a complete pelvic scan and a HyCoSy, the pelvic scan will be performed first, followed by the HyCoSy procedure. You can eat and drink normally before and after the test. HOW IS HYCOSY PERFORMED? The first part of the HyCoSy is like the first part of a pap smear, with a vaginal speculum gently inserted into the vagina to visualize the cervix. The cervix is then cleansed with antiseptic solution to decrease the risk of infection. A thin flexible balloon catheter is inserted through the opening of the cervix, so that the catheter lies within the endometrial cavity. Inserting the intrauterine catheter does not usually cause discomfort. A tiny balloon at the tip ofthe catheter is slowly inflated with saline-this is necessary to stop fluid leaking back out through the cervix during the test. Inflating this tiny balloon can cause some cramping. The vaginal speculum is removed, with the catheter remaining in the uterus. Next, the transvaginal ultrasound (internal scan through the vagina) is used to image the uterus. Initially, a small amount of sterile saline is introduced into the endometrial cavity through the catheter, and the uterine cavity is inspected. This saline distends the endometrial cavity, allowing assessment of the contour and shape of the cavity. The doctor will be looking for such problems as endometrial polyps, submucosal fibroids, and congenital uterine abnormalities (such as a uterine septum). Next, a small amount of contrast agent (either agitated saline/air mixture, or a Foam-EX Foam) willbe introduced through the catheter. The doctor will be looking at both fallopian tubes, to see if the tubes are patent. If the contrast can be seen flowing through each tube, and spilling out the endof the tube around the area of the ovaries, the tubes are patent. The transvaginal ultrasound and catheter are removed at the end of the procedure. WHAT ARE THE RISKS OF HYCOSY? HyCoSy is a safe and well-tolerated procedure for the assessment of tubal patency. Infection of theuterus/pelvis is not common following this procedure, but it may occur. You should contact either your referring doctor or our practice immediately if you have the following symptoms: Persistent or foul-smelling vaginal discharge Increasing lower abdominal pain Unexplained Fever Generally unwell Such symptoms may indicate an infection requiring antibiotics. If you have a history of pelvic infection or in special circumstances, the provider may give you antibiotics to prevent pelvic infection. Please tell the doctor before your procedure begins if you have a history of pelvic infection, or another reason for antibiotic pre-treatment. Antibiotics are otherwise not routinely given during this test. WHAT SHOULD I DO AFTER THE PROCEDURE? You should wear a sanitary pap after the procedure. There may be some persistent vaginal discharge for a few hours, as the fluid used in the test will leak out the vagina. This discharge is sometimesblood stained so do not be alarmed if this occurs. Our practice will give you a sanitary pad to usefollowing the procedure. HOW WILL I FEEL AFTER THE PROCEDURE? Most women do not find the test too uncomfortable. Most women experience only mild to moderate cramping period-type pain during the test, but this usually subsides once the test is completed. You should be able to drive and resume normal daily activities after the test. Occasionally women have moresevere pain, and do not feel up to driving or returning to work. If you are concerned about how youwill feel after the test, you may consider have a friend drive you home, or having the day off work. You can eat and drink normally after the procedure. WHEN ARE THE RESULTS AVAILABLE? The ultrasound doctor will discuss your results once the procedure has been completed (for example,whether the fallopian tubes appear patent). WHAT OTHER TESTS SHOULD I HAVE? Sometimes the fallopian tubes (either one or both tubes) are not seen during the HyCoSy procedure. This may be due to: Spasm of the tubal opening which temporarily prevents the flow of contrast from the uterus into thetube Permanent tubal occlusion (blockage), secondary to an underlying tubal or pelvic problem (such as scar tissue) Technical factors may hinder visibility during the ultrasound, such as uterine fibroids, and bowel gas in the pelvis. It is important to remember that HyCoSy is simply one test used to investigate infertility. NeitherHyCoSy nor traditional HSG provide definitive answers in all women, making other investigations sometimes necessary. You referring provider will decide if you may need to have further investigations or procedures such as laparoscopy. 5.) Consultation with the Genetic Specialist (for some patients) 6.) Consultation with a Maternal Medicine Specialist (for some patients with special health care needs) 7.) Consultation with the clinic psychologist (for some patients) 8.) Consultation with psychiatry (for some patients who are on medications for mental health considerations such as anxiety, depression, ADHD, etc) 9.) Once your testing is complete you will have a round up or follow up appointment with your provider. Once you know when the testing is complete we encourage you to set up that appointment in advance to help move along your care Additional Support: [employer] [address] [email or web address] Reproductive Medicine Women???[facility] Services Supervisor [employer] [facility]-[address] [place] Vitamin D :a vitamin that is naturally present in very few foods, may be added to others, and is avaialble as a dietary supplement, It is also produced in the body when sunlight strikes the skin and is then activated in either the liver or the kidney. Vitamin D is important in overall health, and is known to be important in bone health. Foods that are a good source of vitamin D include: Milk fortified with vitamin D, and some ready to eat cereals and some brands of yogurt and orange juice. Cheese naturally contains a small amount of vitamin D. Fatty fish such as salmon, tuna, and mackerel are very good sources of vitamin D. Small amounts of vitamin D are also found in egg yolks. The recommended daily allowance of vitamin D for most adults is 600 - 2,000 IU daily. Your physician may suggest that your vitamin D (25 (OH)-D) level be checked with a blood test. The Endocrine Society clinical practice guidelines recommend a the desired level (serum concentration) of 25 (OH) D is > 75 nmol/l (> 30 ng/mL) to maximize the effect of this vitamin on calcium, bone, and muscle metabolism. However, as vitamin D may be stored in the body (fat soluble) you can take too much, and experienceadverse health effects. Take a daily multivitamin: The U.S. Public Health Service recommends that all women of childbearingage take 0.4 mg (400 micrograms) of folic acid daily to prevent two common and serious defects such as spina bifida and anencephaly (spinal column and brain defects). Vitamin D Blood Levels: > 30 ng/ml: vitamin D 600 -2000 IU/day 25-30 ng/mL: 2,000 IU daily and recheck level in 10-12 weeks 20-25 ng/mL: 4,000 IU daily and recheck in 10-12 weeks < 20 ng/mL: 6,000 IU daily and recheck in 10-12 weeks < 15: Consult your physician for appropriate dosing and terminal operations supervisor follow up With , all patients should reduce their vitamin D supplementation to 2,000 IU/day and continue a to take a daily multivitamin with 400 ugm of folic acid. documented in this encounter Discharge Disposition Disposition Code Departure Means Destination Auto Discharge documented in this encounter Progress Notes * Micah Phillip MD - 05/01/2018 5952 EDT Images from the original note were not included. REPRODUCTIVE ENDOCRINOLOGY & INFERTILITY NEW PATIENT CONSULT Subjective: CC: Chief Complaint Patient presents with ??? Infertility TTC 14months - would like to know why Consult requested by: self Reanna Espinoza is a 32 y.o. G0 female who presents for evaluation of infertility. Patient and partner have been attempting conception for 14 months. Pregnancies with current partner: no. Partners sex is male. HPI The patient presents today with her for initial infertility counseling. She reports a normal development without any past medical or surgical history. She is not taking any medications and has no allergies. 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 The patient and her first attempted conception several years ago and per her report actively tried to conceive for 1-2 years before it became too stressful and they simply stopped trying. After another 1-2 years she and her began actively trying again and have been for the past 14 months without a single positive test. The patient has been using clear blue ovulation predictor kits as her only means of fertility aid. She reports regular monthly cycles 27-28 days in duration with 4 days of bleeding although this hasbeen significantly heavier in years past. She has not used any form of contraception and at least 5-6 years. The ovulation predictor kits turned from a negative to a high fertility midcycle every month. Of note in the patient's history, he reports a left inguinal hernia repair surgery during high school. Menstrual and Endocrine History LMP Patient's last menstrual period was 04/30/2018 (exact date). Menses regular Shortest Interval 27 Longest Interval 28 days Duration of flow 4 days Heavy Menses yes Dysmenorrhea no Amenorrhea no Hirsutism no Galactorrhea no Obstetrical History OB History Para Term AB Living 0 0 0 0 0 0 SAB TAB Ectopic Multiple Live Births 0 0 0 0 0 Gynecologic History Last PAP ~10 years ago reported as normal per the patient Previous abdominal or pelvic surgery no Pelvic Pain no Endometriosis no Hot Flashes no HUMBERTO Exposure no Abnormal Pap no Cervix Cryo/cone no STD no PID no Infertility and Endocrine Studies BBT no Ovulation Predictor Kit yes HSG no Laparoscopy no Hormonal Studies no Semen analysis no Other Studies TVUS [facility]--TVUS from an ovarian cyst rupture Meds no Other Therapies no Antral Follicle Count no Sexual History Dyspareunia No Couple is having intercourse with adequate frequency to maximize chance of conception yes Use of Lubricant no Family History Thyroid Problems no Defects/Inherited diseases no Cysticfibrosis no Age Mother Underwent Menopause no There are no active problems to display for this patient. PMH PSH No past medical history on file. No past surgical history on file. Social History Family history Social History Social History ??? Marital status: Spouse name: N/A ??? Number of children: N/A ??? Years of education: N/A Occupational History ??? Not on file. Social History Main Topics ??? Smoking status: Never Smoker ??? Smokeless tobacco: Never Used ??? Alcohol use 1.8 - 2.4 oz/week 3 - 4 Glasses of wine per week ??? Drug use: No ??? Sexual activity: Yes Partners: Male Comment: one partner 10+ years Other Topics Concern ??? Not on file Social History Narrative ??? No narrative on file No family history on file. Medications No current outpatient prescriptions on file prior to visit. No current facility-administered medications on file prior to visit. 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 Past Medical History: GERD Medications: none Exposure to reproductive toxins: no Paternity of Pregnancies: Number with this partner: 0 Number with other partners: 0 Age of youngest child: n/a Urologic History: Infection no STD no Mumps no Varicocele no Semen analysis no Undescended Testes no Testicular Trauma no Genital Surgery Left inguinal hernia surgery Ejaculatory Problem no Impotence no Objective: Female Exam BP 104/76 Ht 160 cm (63) Wt 59 kg (130 lb) LMP 04/30/2018 (Exact Date) BMI 23.03 kg/m2 Wt Readings from Last 1 Encounters: 05/01/18 59 kg (130 lb) BMI: Body mass index is 23.03 kg/(m^2). PELVIC EXAM: Examination not indicated Assessment: 32 y.o. G0 female who presents with her after trying to conceive without success for 14+ months. Plan: Reanna was seen today for infertility. Diagnoses and all orders for this visit: Encounter for fertility testing - Antimullerian Hormone (AMH) ReproSource; Future - TRAFFIC COUNTER US HYSTEROSONOGRAPHY - TSH; Future - Vitamin D (25,OH); Future - Varicella IgG Antibody; Future - Rubella IgG Antibody; Future - Spinal Muscular Atrophy Carrier Screen by Del/Dup Analysis; Future - Cystic Fibrosis Mutation Analysis, 106 Panel; Future Other orders - Cancel: Cystic Fibrosis Mutation Analysis, 106 Panel; Future We will plan to check an AMH, thyroid cascade, varicella/rubella antibodies, and vitamin D level. Her , Joel, will give a semen analysis today (3 days of abstinence). The rationale behind fertility testing was discussed at length. The patient is currently CD2 and will schedule a HyCoSy with AFC for next week. Genetic counseling: Offered couple CF, SMA, and thalassemia testing per ACOG guidelines. Patient accepted at this time. Also discussed expanded carrier screening which she declined. If she becomes interested, will set up visit with Dr Leone or let us know so we can begin precertification process. The details of potential treatment options was briefly discussed, but we will await the findings ofthe aforementioned studies and tailor a treatment plan based on those results. We will submit this patient's information to our office's financial services manager. Electronically signed by: Micah Phillip MD, PGY5 Fellow Reproductive Endocrinology & Infertility [facility] 05/01/2018 / 13:38 Attestation statement: I discussed the patient with the resident/fellow at the time of the visit. Iagree with the findings and the plan of care documented in the resident's/fellow's note. 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 Assessment LMP on 04/30/2018. Day of cycle: 6. Uterus ======= Uterus: ?Visualized Uterus position: ?? Anteverted Endometrium: ?Trilaminar endometrium Uterus long ?7.3 cm Uterus ap ??2.8 cm Uterus tr ??4.8 cm Endometrial thickness, total ?? 1.9 mm Fibroids: ??Fibroids identified Findings: ??Intramural, anterior D1 8.7 mm D2 13.1 mm D3 12.0 mm Mean ?? 11.3 mm Vol ?0.720 cm cubed Polyps: ?No polyps identified Procedure SIS procedure: risks,benefits and procedure reviewed with the patient. Consent signed. Speculum exam, cervix washed X 3 with betadine. Catheter placed and saline instilled under US observation. Patient tolerated procedure. HyCoSy shows a cavity with a small sessile polyp measuring 4.8 x 3.6 x 3.6 mm. There is flow of air bubbles out the right tubal ostia consistent with tubal patency. No evidence of left tubal patency was appreciated on today's examination. Right Ovary Rt ovary: ??Visualized, normal appearance Rt ovary D1 ?3.2 cm Rt ovary D2 ?3.2 cm Rt ovary D3 ?1.9 cm Rt ovary mean ??2.8 cm Rt ovary vol ?? 10.1 cm cubed Rt ovary other findings: ?? AFC = 15 Left Ovary Lt ovary: ??Visualized, normal appearance Lt ovary D1 ?3.7 cm Lt ovary D2 ?2.8 cm Lt ovary D3 ?2.2 cm Lt ovary mean ??2.9 cm Lt ovary vol ?? 12.0 cm cubed Lt ovary other findings: ?? AFC = greater than 15 [place] Normal. No free fluid visualized. Impression Transvaginal sonohysterogram-[id number] Anteverted uterus with a trilaminar endometrium as [...] tubal patency was appreciated on today's examination. Follow-up with Dr. Lakeisha Torres. Comment ========= Ultrasound findings discussed w/patient. DATE OF SERVICE: 05/05/2018 Procedure Note Gary Vega MD - 05/05/2018 Indication fertility testing. Assessment LMP on 04/30/2018. Day of cycle: 6. Uterus ======= Uterus: Visualized Uterus position: Anteverted Endometrium: Trilaminar endometrium Uterus long 7.3 cm Uterus ap 2.8 cm Uterus tr 4.8 cm Endometrial thickness, total 1.9 mm Fibroids: Fibroids identified Findings: Intramural, anterior D1 8.7 mm D2 13.1 mm D3 12.0 mm Mean 11.3 mm Vol 0.720 cm cubed Polyps: No polyps identified Procedure SIS procedure: risks,benefits and procedure reviewed with the patient. Consent signed. Speculum exam, cervix washed X 3 with betadine. Catheter placed and saline instilled under US observation. Patient tolerated procedure. HyCoSy shows a cavity with a small sessile polyp measuring 4.8 x 3.6 x 3.6 mm. There is flow of air bubbles out the right tubal ostia consistent with tubal patency. No evidence of left tubal patency was appreciated on today's examination. Right Ovary Rt ovary: Visualized, normal appearance Rt ovary D1 3.2 cm Rt ovary D2 3.2 cm Rt ovary D3 1.9 cm Rt ovary mean 2.8 cm Rt ovary vol 10.1 cm cubed Rt ovary other findings: AFC = 15 Left Ovary Lt ovary: Visualized, normal appearance Lt ovary D1 3.7 cm Lt ovary D2 2.8 cm Lt ovary D3 2.2 cm Lt ovary mean 2.9 cm Lt ovary vol 12.0 cm cubed Lt ovary other findings: AFC = greater than 15 [place] Normal. No free fluid visualized. Impression Transvaginal sonohysterogram-[id number] Anteverted uterus with a trilaminar endometrium as [...] tubal patency was appreciated on today's examination. Follow-up with Dr. Lakeisha Torres. Comment ========= Ultrasound findings discussed w/patient. DATE OF SERVICE: 05/05/2018 us Maryan Torres MD IMG US TRAFFIC COUNTER NIKOLAY VALENCIA Final Result * CHLAMYDIA/N. GONORRHOEAE AMPLIFIED RNA, URINE (05/01/2018 14:55 EDT) Chlamydia Result Negative 05/02/20 18 13:49 EDT [facility] GC Result Negative 05/02/2018 13:49 EDT [facility] Comment: A first catch urine specimen is acceptable for detection of Gonorrhea and Chlamydia, but might detect up to 10% fewer infections when compared with vaginal and endocervical swab samples. Specimen of unknown material (specimen) URINE / Unknown 05/01/2018 14:55 EDT 05/01/2018 16:14 EDT Maryan Torres MD MICROBIOLOGY - GENERAL ORDERABLES Final Result [facility] [address] [place], [place] [id number] * CYSTIC FIBROSIS MUTATION ANALYSIS, 106 PANEL (05/01/2018 14:38 EDT) Result Summary NEGATIVE 05/10/2018 8:04 EDT [facility] Result (Note) 05/10/2018 8:04 EDT [facility] Comment:None of the listed m utations were detected. Interpretation (Note) 05/10/2018 8:04 EDT [facility] Comment: Having excluded the listed mutations, this result decreases the likelihood but does not exclude the possibility that this individual is a carrier of or affected with cystic fibrosis (CF). The degree to which this result reduces the patient's risk depends on the ethnic background and family history of the patient. Because this information was not provided, we are unable to provide a revised risk assessment at this time. . The risk that this individual is a carrier of another CF mutation is listed below. . Ethnicity ? Risk ? (Detection rate, Carrier Freq) Northern ? (91%, 09/05) Mixed ?1134 ? (82%, 09/05) Southern ? 115 ? (79%, 09/05) Eastern ?127 ? (77%, 09/10) Ashkenazi Cheondoism ? (97%, 09/05) B[place]ian [place] ? 267 ? (91%, 09/05) ? (81%, ) Turkish ? 251 ? (82%, ) Turkish* ? 194 ? (54%, ) *does not apply to individuals of Pal[place] ancestry . These calculations are based on the mutation detection rates and population carrier frequencies noted in the chart and assume no family history of CF. Because there is little information available about the carrier frequency and mutation detection rates for individuals of other ethnicities, we are unable to provide a revised risk assessment for ethnicities other than those listed. . If the patient has a family history of CF, contact our laboratory for a revised risk assessment. If there is a suspected diagnosis of CF, correlation between other laboratory tests and clinical history is recommended. Additional genetic testing strategies, such as full gene analysis of the CFTR gene (CFTRZ / CFTR Gene, Full Gene Analysis), should be considered for identifying mutations that are not detected by this assay. Contact the [facility] at for further discussion regarding this option. . A genetic consultation may be of benefit. . ADDITIONAL INFORMATION An online research opportunity called [employer] (genomeconnect.org), a project of [employer], is available for the recipient of this genetic test. This patient registry collects de-identified genetic and health information to advance the knowledge of genetic variants. [facility] is a collaborator of [employer]. This may not be applicable for all tests. . Test results should be interpreted in the context of clinical findings, family history, and other laboratory data. Misinterpretation of results may occur if the information provided is inaccurate or incomplete. . Rare polymorphisms exist that could lead to false-negative or false-positive results. If results obtained do not match the clinical findings, additional testing should be considered. . Bone Marrow transplants from allogenic donors will interfere with testing. Call [facility] for instructions for testing patients who have received a bone marrow transplant. . Multiple in-silico evaluation tools may have been used to assist in the interpretation of these results. Of note, the sensitivity and specificity of these tools for the determination of pathogenicity is currently unvalidated. . This test was developed and its performance characteristics determined by [facility] in a manner consistent with CLIA requirements. This test has not been cleared or approved by the U.S. Food and Drug Administration. Specimen WB Whole Blood 05/10/2018 8:04 [facility] Method (Note) 05/10/2018 8:04 [facility] Comment: The multiplex PCR based assay utilizing the [employer] Array platform was used to detect 106 mutations, including the 23 mutations specified in the [employer] (ACMG) standards for population based carrier screening. The mutations are as follows: [id number], ulpgfY967, G542X, G85E, R117H, O1109D (TGG>TGA), 621+1G>T, 711+1G>T, L0900Y (C>A), H5574C (C>G), R334W, R347P, A455E, 1717-1G>A, R553X, R560T, G551D, 1898+1G>A, 2184delA, 2789+5G>A, 3120+1G>A, N5205O, 3659delC, 3849+10kbC>T, the deletion of exons 2-3, 296+2T>A, E60X, R75X, 394_395delTT, 405+1G>A, 406-1G>A, E92X, 444delA, 457TAT>G, R117C, Y122X, 574delA, 663delT, G178R, 711+5G>A, 712-1G>T, H199Y, P205S, L206W, 531yrp49, 935delA, 936delTA, hzqfjD929, 1078delT, G330X, T338I, R347H, R352Q, Q359K, T360K, 1288insTA, S466X (C>A), S466X (C>G), G480C, Q493X, 1677delTA, C524X, S549N, S549R (T>G), Q552X, A559T, 1811+1.6kbA>G, 1812-1G>A, 1898+1G>T, 1898+1G>C, 1898+5G>T, P574H, 3770xdn65, 2043delG, 2736lxm8>A, 4561ktt25ppx9, 2108delA, 2143delT, 2183_2184delAAinsG, 2184insA, R709X, K710X, 2307insA, R764X, Q890X, 2869insG, 3171delC, 3292led2, K2336E, U2473Z (TGG>TAG), E7473T (C>G), D5674G (C>A), Y2378G, L9593P, J1613O, S6092W, 1228zee4, F1667X, A5539J (TGG>TAG), 3791delC, Q7961F, 3876delA, A7148D, N9484D, 3905insT, and 4016dupT mutations are detected. Poly T determination and confirmatory testing of homozygous results are performed as reflex tests when appropriate. Released By Álvaro Rowan, Ph.D. 5 to [phone] 05/10/2018 8:04 T [facility] Comment: Performed or Referred by: [facility], [address] [place] [address] Blood specimen (specimen) BLOOD SPECIMEN / Unknown 05/01/2018 14:38 EDT 05/01/2018 15:05 EDT us Maryan Torres MD CHEMISTRY & BLO OD GAS ORDERABLES Final Result [facility] [address] [place] [address] * SPINAL MUSCULAR ATROPHY CARRIER SCREENING BY DEL/DUP ANALYSIS (05/01/2018 14:38 EDT) Pathologist [facility] Result Summary (Note) 05/09/2018 8:16 EDT [facility] Comment:NEGATIVE FOR SMN1 DE LETION (SEE INTERPRETATION) Result (Note) 05/09/2018 8:16 EDT [facility] Comment: Two copies of ??SMN1 ??exon 7 were detected. Two copies of ??SMN2 ??were detected. Interpretation (Note) 05/09/2018 8:16 EDT [facility] Comment: This result indicates a reduced carrier risk for Spinal Muscular Atrophy (SMA). ??Although SMN1 gene deletions account for 95% of SMA-causing mutations, carrier status cannot be completely excluded because this test cannot differentiate one copy of SMN1 exon 7 on each chromosome (1/1) from two copies of SMN1 on one chromosome and none on the other chromosome (2/0). Individuals that carry zero copies of the SMN1 gene on one of their chromosomes may be at risk to have an affected child, if their partner is also an SMA carrier. ??Other alterations within the SMN1 gene, such as point mutations, are also not detected by this test. . An individual's residual risk for SMA carrier status varies by ancestry and SMN1 copies. ??The table below lists the chance of being a 2/0 or 3/0 carrier, based on ancestry and the number of copies of SMN1 detected (1). . Ancestry ? Prior Risk ?2 Copies (2/0) ?? 3 Copies (3/0) ----- ? 1/35 ?1/632 ?08/3499 Ashkenazi Cheondoism ?? 1/41 ?1/350 ?08/3999 ?1/53 ?1/628 ?08/4999 ?1/66 ?1/121 ?08/2999 ? 1/117 ? 08/1060 ? 1/91717 . These calculations are based on the population carrier frequencies noted in the chart and assume no family history of SMA. We are unable to provide a revised risk assessment for ancestries other than those listed above as there is insufficient information available about the SMA carrier frequency in other populations. . A genetic consultation may be of benefit. . ADDITIONAL INFORMATION Laboratory developed test (LDT) for SMN1 exon 7 and SMN2 exon 7 copy number by droplet digital PCR. Mutation nomenclature is based on the following GenBank Accession number(s) (build GRCh37 (hg19)): ??[id number]. See [email or web address] (Test ID SMNCS) for additional information about this test. CAUTIONS: CLINICAL CORRELATIONS Test results should be interpreted in context of clinical findings, family history, and other laboratory data. Misinterpretation of results may occur if the information provided is inaccurate or incomplete. . If testing was performed because of a family history of Spinal Muscular Atrophy, it is often useful to first test an affected family member. . TECHNICAL LIMITATIONS Point mutations are undetectable by this assay. Nor can the assay discriminate between two copies of SMN1 on the same chromosome versus two copies on separate chromosomes. Bone marrow transplants from allogenic donors will interfere with testing. Call [facility] for instructions for testing patients who have received a bone marrow transplant. . TEST CLASSIFICATION This test was developed and its performance characteristics determined by [facility] in a manner consistent with CLIA requirements. This test has not been cleared or approved by the U.S. Food and Drug Administration. Additional Info (Note) 8:16 EDT [facility] Comment: REFERENCES . 1. J Med Tyra. 2009; 46: 641-644 (PMID: [id number]) Specimen WB Whole Blood 05/09/2018 8:16 EDT [facility] Released By Álvaro Rowan, Ph.D. 5 es [phone] 05/09/2018 8:16 T [facility] Comment: Performed or Referred by: [facility], [facility] [place] [address] Blood specimen (specimen) BLOOD SPECIMEN / Unknown 05/01/2018 14:38 EDT 05/01/2018 15:05 EDT us Maryan Torres MD CHEMISTRY & BLO OD GAS ORDERABLES Final Result Performing Organization Address [facility] Co de Phone Number [facility] [address] [place] [address] * RUBELLA IGG ANTIBODY (05/01/2018 14:38 EDT) Rubells IgG Ab Positive 05/02/2018 15:50 EDT [facility] Comment: New methodology in use 11/19/16. Positive for IgG antibodies to Rubella virus. Blood specimen (specimen) BLOOD SPECIMEN / Unknown 05/01/2018 14:38 EDT 05/01/2018 15:05 EDT us Maryan Torres MD CHEMISTRY & BLO OD GAS ORDERABLES Final Result Performing Organization Address [facility]/ZIP Co de Phone Number [facility] [address] [place] [address] * VARICELLA IGG ANTIBODY (05/01/2018 14:38 EDT) Pathologist [facility] Varicella IgG Ab Positive 05/02/2018 15:35 EDT [facility] Comment: Presence of detectable Varicella Zoster virus IgG antibodies. Blood specimen (specimen) BLOOD SPECIMEN / Unknown 05/01/2018 14:38 EDT 05/01/2018 15:05 EDT Maryan Torres MD IMMUNOLOGY AND SEROLOGY ORDERABLES Final Result [facility] [address] [place] [address] * VITAMIN D (25,OH) (05/01/2018 14:38 EDT) [facility] 25OH Vitamin D Tot 46.5 30 - 100 ng/ml 05/02/2018 15:36 EDT [facility] Comment: Reference Range: Deficient = <10 ng/ml Insufficient = 10-30 ng/ml Sufficient = 30-100 ng/ml Toxic = >100 ng/ml Blood specimen (specimen) BLOOD SPECIMEN / Unknown 05/01/2018 14:38 EDT 05/01/2018 15:05 EDT Maryan Torres MD CHEMISTRY & BLO OD GAS ORDERABLES Final Result Performing Organization Address [facility] de Phone Number [facility] [address] [place] [address] * TSH (05/01/2018 14:38 EDT) [facility] TSH 1.07 0.47 - 4.68 uIU/ml 05/01/2018 16:31 EDT [facility] Comment: The results of this assay can be falsely lowered due to the consumption of Biotin. Blood specimen (specimen) BLOOD SPECIMEN / Unknown 05/01/2018 14:38 EDT 05/01/2018 15:05 EDT Maryan Torres MD CHEMISTRY & BLO OD GAS ORDERABLES Final Result [facility] [address] [place] [address] * [facility] (05/01/2018 14:38 EDT) [facility] Result See Pathology Scanned Report in PRISM. 05/06/2018 7:42 EDT [facility] Comment: Assayed at [facility], [place], [place] Blood specimen (specimen) BLOOD SPECIMEN / Unknown 05/01/2018 14:38 EDT 05/01/2018 15:05 EDT us Maryan Torres MD CHEMISTRY & BLO OD GAS ORDERABLES Final Result Performing Organization Address City/[facility]/ZIP Co de Phone Number [facility] [address] [place] [address] documented in this encounter Visit Diagnoses Diagnosis Encounter for fertility testing- Primary Fertility testing Screen for STD (sexually transmitted disease) Screening examination for venereal disease documented in this encounter Care Teams Multiple Needle Stitcher Relationship Specialty Start Date End Date [facility] Internal Medicine, [address] [place], [place] [id number] PCP - General 11/03/15 10/01/23 documented as of this encounter
--- OUTSIDE RECORDS SUMMARY | 2024-09-16 01:39 | XMS_ITS | Encounter Summary ---
Author Organization [facility] Address [address] [place] [address] Care Team Providers Care Paper Cutter Operator Name Role Phone [facility] Internal Medicine, Primary Care Provi darrel Reason for Visit * Reason Comments Procedure IUI #1 Encounter Details Date Type Department Care Team (Late st Contact Info) Description 06/08/2018 8:[address] [facility] [address] [address] Unknown, Provider, Meliza Chester MD [address] [place] [address], [address] [place] [address] Jane Garza Rogers [place] Encounter for artificial insemination (Primary Dx) Discharge Disposition: Auto Discharge Social [...] Female infertility, unspecified-N97.9[ICD-10-CM] documented in this encounter Patient Instructions * Patient Instructions* Micah Phillip MD - 06/08/2018 8:30 EDT Post IUI Instructions WHAT SIDE EFFECTS CAN BE EXPECTED? There are three potential complications/side effects that occur in a low frequency: Uterine cramping - This is minimized by sperm processing and the insemination of small volumes intothe uterus. However, in certain patients where there is difficulty passing the catheter into the uterus, some transient uterine cramping may be experienced. This usually persists for the time period during the insemination and for approximately 5 to 10 minutes afterwards. ?? If you experience any cramping after the procedure, only take Tylenol (not ibuprofen) until the result of a test in 2 weeks is known. Ibuprofen or any other NSAID is not recommended in . Pelvic infection resulting from the insemination - This small risk is further minimized by sperm processing. If the laboratory notices a significant amount of bacterial contamination within the spermspecimen, the physician and patient both will be notified and the proper course of action discussed. Formation of antibodies to sperm - This is a theoretical problem and risk should not be any different from natural intercourse. NOTE: If heterosexual couples try to have sexual relations within 24 hours after the insemination, this will increase the intimacy of your conception attempts and may also increase your chances of . Also, when occurs, you will not know conclusively if natural or assisted insemination was responsible. If you have done two IUI cycles and are still not you should proceed on to a third cycle, but please make an appointment to follow up with your physician to discuss further treatment options. [facility] Office Contact Information General office: [phone] [facility] Nurses: [phone] documented in this encounter Discharge Disposition Disposition Code Departure Means Destination Auto Discharge documented in this encounter Progress Notes * Micah Phillip MD - 06/08/2018 0830 EDT Patient here for IUI today. See procedure note. documented in this encounter Procedure Notes * Micah Phillip MD - 06/08/2018 0830 EDTProcedure(s): FL ARTIFICIAL INSEMINATION INTRA-UTERINE Pre-Procedure Diagnose(s): Encounter for artificial insemination Post-Procedure Diagnose(s): Encounter for artificial insemination Images from the original note were not included. INTRAUTERINE INSEMINATION PROCEDURE NOTE Patient: Reanna Espinoza (1985) Date: 06/08/2018 Insemination #: 1 Protocol: CC50/USF/HCG/IUI Patient and Tremaine Espinoza here today for intrauterine insemination. Consent signed by patient, IUI sample identified by patient, and Final Verification performed with patient prior to insemination. All patient's questions were discussed and answered. Patient was placed in dorsal lithotomy position and speculum was inserted into vagina. Cervical os was visualized and prepared sample was inserted into uterus. Insemination was performed without difficulty. Patient tolerated procedure well. One attempt was made to pass catheter and no bleeding occurred during insemination. Anticipated date of test is 06/22/18. Patient was educated prior to leaving office today on the following points: 1. Patient counseled to use tylenol (not ibuprofen) for pain if needed until results of test are known. 2. Patient was advised to call office if she develops fever, chills, pelvic pain, or heavy bleeding. 3. Patient will call office if she does not start her menses in two weeks from today for test. If menses begins, patient was advised to call office to report and to proceed with another cycle if appropriate. Patient verbalized understanding of the plan. I was supervised by attending physician Dr. Sena who was present and immediately available in the office suite. Electronically signed by: Micah Phillip MD, PGY5 Fellow Reproductive Endocrinology & Infertility [facility] 06/08/2018 / 9:32 documented in this encounter Plan of Treatment Not on file documented as of this encounter Procedures Procedure Name Priority Date/Time Associated Diagnosis Comments POCT SPERM WASHING ARTIFICIAL INSEMINATION Routine 06/08/2018 8:42 EDT Encounter for artificial insemination documented in this encounter Results * POCT SPERM WASHING ARTIFICIAL INSEMINATION (06/08/2018 8:42 EDT) Pathologist [facility] Media Lot #, POC [id number] ; [id number] POINT OF CARE [facility] Expiration, POC 07/2019; 08/2018 POINT OF CARE [facility] Pre-Wash Volume, POC 3.0 >= 2 ml POINT OF CARE [facility] Pre-Wash Count, POC 60 >=20 million/ml POINT OF CARE [facility] Pre-Wash Motility, POC 67 >= 50% POINT OF CARE [facility] Post-Wash, POC 0.5 ml POINT OF CARE [facility] Post-Wash Count, POC 76 million/ml POINT OF CARE [facility] Post-Wash Motility, POC 82 % POINT OF CARE [facility] Total Motile, POC 31 >= 6 million POINT OF CARE [facility] Timing Method, POC [facility]INT [facility] CARE [facility] Body fluid specimen (specimen) 06/08/2018 8:42 EDT Meliza Sena MD POINT OF CARE TEST ORDERABL ES Final Result POINT [facility] CARE [facility] documented in this encounter Visit Diagnoses Diagnosis Encounter for artificial insemination- Primary Artificial insemination documented in this encounter Care Teams Paper Cutter Operator Relationship Specialty Start Date End Date [facility] Internal Medicine, [place] [address] [place] [address] PCP - General 11/03/15 10/01/23 documented as of this encounter
--- OUTSIDE RECORDS SUMMARY | 2024-09-16 01:39 | XMS_ITS | Encounter Summary ---
Author Organization [facility] Address [address] [place] [address] Care Team Providers Care Pony Ride Operator Name Role Phone Internal Medicine, Primary Care Provi darrel Reason for Visit * Reason Comments Follow-up HyCoSy Encounter Details Date Type Department Care Team (Latest Contact Info) Description 05/05/2018 8:30 EDT Office Visit [facility] [address] [place] [address] Gary Vega MD [address] [place] [address] [address] Encounter for fertility testing (Primary Dx) Social History Tobacco Use Types [...] Progress Notes * Micah Phillip MD - 05/05/2018 0830 EDT Images from the original note were not included. Encounter for Urine Test UPT ordered prior to sonohysterogram. Result: negative; recorded as such in EPIC Electronically signed by: Micah Phillip MD, PGY5 Fellow Reproductive Endocrinology & Infertility [facility] 05/05/2018 / 8:36 Attestation statement: I was present in the clinic and readily available during this entire procedure. I have reviewed the images and I agree with the findings and plan of care as documented in the note above. Gary Vega MD Reproductive Endocrinology and Infertility documented in this encounter Plan of Treatment Not on file documented as of this encounter Procedures Procedure Name Priority Date/Time Associated Diagnosis Comments POCT TEST, CLINITEK Routine 05/05/2018 8:42 EDT Encounter for fertility testing documented in this encounter Results * POCT TEST, CLINITEK (05/05/2018 8:42 EDT) UPT Result Neg Neg 05/05/2018 9:53 EDT [facility] hydropulper operator ID [id number] 05/05/2018 9:53 EDT [facility] Comment:Test performed at [facility] Urine specimen (specimen) URINE / Unknown 05/05/2018 8:42 EDT 05/05/2018 9:53 EDT us Gary Vega MD POINT OF CARE TEST ORDERABLE S Final Result [facility] [address] [place] [address] documented in this encounter Visit Diagnoses Diagnosis Encounter for fertility testing- Primary Fertility testing documented in this encounter Care Teams Pony Ride Operator Relationship Specialty Start Date End Date [facility] Internal Medicine, [facility] [place] [address] PCP - General 11/03/15 10/01/23 documented as of this encounter
--- OUTSIDE RECORDS SUMMARY | 2024-09-16 01:39 | XMS_ITS | Encounter Summary ---
Author Organization [facility] Address [facility] [place] [address] Care Team Providers Care Coding Support Specialist Name Role Phone Lela Yanez APRN Primary Care Provider Un available Reason for Visit * Reason Comments Procedure Encounter Details Date Type Department Care Team (Late st Contact Info) Description 04/30/2014 2:15 PM EDT Office Visit Dermatology at [address] [place] [id number] Darren Hurley MD [address] [facility] [place] [address] Nevus (Primary Dx) Discharge Disposition: Home Social History Tobacco Use Types Packs/Day Years Used Date Smoking Tobacco: Never Sex and Gender Information Value Date Recorded Sex Assigned at Not on file Gender Identity Not on file Sexual Orientation Not on file documented as of this encounter Patient Instructions * Patient Instructions* Sera Rodrigues LPN - 04/30/2014 2:31 PM EDT Images from the original note were not included. [facility] Moles: After Your Visit Your Care Instructions Moles are skin growths made up of cells that produce color (pigment). A mole can appear anywhere onthe skin, alone or in groups. Most people get a few moles during their first 20 years of life. Theyare usually brown in color but can be blue, black, or flesh-colored. Most moles are harmless and donot cause pain or other symptoms, unless you rub them or they bump against something. You usually do not need treatment for moles. But some can turn into cancer. Talk to your doctor if a mole bleeds, itches, roberts, or changes size or color. Also let your doctor know if you get a new mole. Make sure to wear sunscreen and other sun protection every day to help prevent skin cancer. Follow-up care is a raymundo part of your treatment and safety. Be sure to make and go to all appointments, and call your doctor if you are having problems. It???s also a good idea to know your test results and keep a list of the medicines you take. How can you care for yourself at home? ?? Check all the skin on your body once a month for skin growths or other changes, such as in the color and feel of the skin. ?? head of training and development front of a full-length mirror. Look carefully at the front and back of your body. Then look at your right and left sides with your arms raised. ?? Bend your elbows and look carefully at your forearms, the back of your upper arms, and your palms. ?? Look at your feet, the bottoms of your feet, and the spaces between your toes. ?? Use a hand mirror to look at the back of your legs, the back of your neck, and your back, rear end (buttocks), and genital area. Part the hair on your head to look at your scalp. ?? If you see a change in a skin growth, contact your doctor. Look for: ?? A mole that bleeds. ?? A fast-growing mole. ?? A scaly or crusted growth on the skin. ?? A sore that will not heal. To prevent skin cancer ?? Always wear sunscreen on exposed skin. Make sure the sunscreen blocks ultraviolet rays (both UVAand UVB) and has a sun protection factor (SPF) of at least 15. Use it every day, even when it is cloudy. Some doctors may recommend a higher SPF, such as 30. ?? Wear a wide-brimmed hat and long sleeves and pants if you are going to be outdoors for very long. ?? Avoid the sun between 10 a.m. and 4 p.m., which is the peak time for the sun's ultraviolet rays. ?? Avoid sunburns, tanning booths, and sunlamps. ?? Be sure to protect children from the sun. Sunburns in childhood damage the skin and increase therisk of cancer. When should you call for help? Watch closely for changes in your health, and be sure to contact your doctor if: ?? A mole looks different than it did before. It may have changed in size, color, shape, or the wayit looks. ?? You have a new mole. ?? You have a new pimple or skin growth that does not go away. Where can you learn more? Visit our health information library at [email or web address] You can also view health information on [employer], your personal patient account. Log in or sign up today. Enter M489 in the search box to learn more about Moles: After Your Visit. ?? [id number] [employer]. Care instructions adapted under license by [facility]. This care instruction is for use with your licensed healthcare professional. If you have questions about a medical condition or this instruction, always ask your healthcare professional. [employer] disclaims any warranty or liability for your use of this information. Content Version: 9.9.134921; Last Revised: March 17, 2013 documented in this encounter Progress Notes * Darren Hurley MD - 04/30/2014 3:04 PM EDT Clinical Impression: Compound versus intradermal nevus, submandibular chin. Size: 6 mm. Deep suture: 4-0 Vicryl. Surface suture: 5-0 Ethilon. Followup: One week for suture removal and biopsy results. Indications for surgery, possible adverse outcomes, and activity restrictions discussed. Informed verbal consent was obtained. Skin surface was prepared with 4% chlorhexidine and draped in the usual sterile manner. Local anesthesia with 1% lidocaine, 1:100,000 epinephrine, and 0.1 mEq/mL bicarbonate. Using a #15 blade, and 1 mm margins, an elliptical excision was carried out around the lesion. Undermining performed peripherally. Hemostasis with electrodesiccation. Layered closure performed, with specimen to Pathology. Wound dressed, wound care reviewed. End length of suture line was 2 cm. Patient will have her own sutures removed at [facility] in one week, where she works. Return to clinic here will be p.r.n. COPY: Lela Yanez N.P. documented in this encounter Plan of Treatment Not on file documented as of this encounter Visit Diagnoses Diagnosis Nevus- Primary Benign neoplasm of skin, site unspecified documented in this encounter Care Teams Coding Support Specialist Relationship Specialty Start Date End Date Lela Yanez, JODY PCP - General 04/19/14 08/20/24 documented as of this encounter
--- OUTSIDE RECORDS SUMMARY | 2024-09-16 01:39 | XMS_ITS | Encounter Summary ---
Author Organization [facility] Address [address] [place] [address] Care Team Providers Care Clarifier Operator Helper Name Role Phone [facility] Internal Medicine, Primary Care Provi darrel Reason for Visit * Reason Onset Date Comments Follow-up 08/21/2018 Encounter Details Date Type Department Care Team (Late st Contact Info) Description 08/21/2018 Telephone [facility] - [facility] [address] [place] [address] Johanne hKan, MALIA [address] [place] [address] Follow-up Social History Tobacco Use Types Packs/Day [...] Refills Last Filled Start Date End Date letrozole (FEMARA) 2.5 mg tablet Take 1 Tab by mouth daily. 5 Tab 08/21/2018 01/25/2019 documented in this encounter Miscellaneous Notes * Telephone Encounter - Johanne Khan RN - 08/21/2018 3011 EST Reanna called to report she would like to proceed with IVF. Since we are currently booking into December, she will do another IUI with this menses. Today is CD#5. She is unable to go to the lab for hCG and progesterone, but she has very regular cycles, and reports this period was WNL. She will check UPT to confirm negative before starting medication tonight. Scheduled for IVF intake with [facility] 09/09. I will place the orders needed to complete her workup, and she and her partner can go to the lab at their convenience over the next few weeks. She will call with menses if not from this IUI to see if needs to start OCPs. She reports it has been a long time since her last pap and she is unable to provide a record. She would like to have a pap when she is here for her USF or intake. Of note, she had a polyp on her SHG -- will consult MD to see if needs polypectomy before IVF. Intrauterine Insemination Cycle number: 4 Plan: LTZ 2.5/USF/HCG/IUI 1.) Call from patient- Date: 08/21/2018 Time: 15:14 Previous IUI: yes A.) Attended injection site technique class: yes B.) Pre-certfied: yes C.) Consent signed by patient & partner to use specimen: yes D.) Aware of current costs: yes E.) GC/ Chlamydia lab done: yes, 05/01/18 RXD: no 2.) Last Menstrual Period: 08/17/18 WNL?: yes 3.) OK to proceed? yes A.) Ovulation Induction Medication: letrozole Dose: 2.5 Cycle days: 5-[address] [facility] Refills: 0 B.) Human Chorionic Gonadotropin (HCG) 10,000 unit subcutaneous injection Pharmacy: [facility] Refills: 1 D.) USF scheduled- Cycle Day: 11 Date: 08/27 Time: 0800 Johanne Khan RN 08/21/2018 15:14 documented in this encounter Plan of Treatment Not on file documented as of this encounter Results * ABO/RH (09/09/2018 16:35 EST) ABO O [facility] Rh Factor Positive [facility] Blood specimen (specimen) 09/09/2018 16:35 EST us Micah Phillip MD BLOOD BANK TESTS Final Res ult Performing Organization Address City/State/[facility] Co de Phone Number [facility] [address] [place] [address] * COMPLETE BLOOD COUNT (09/09/2018 15:44 EST) WBC 10.45 4.0 - 12.4 K/cmm 09/09/2018 17:25 [facility] RBC 4.81 3.86 - 5.04 M/cmm 09/09/2018 17:25 [facility] Hemoglobin 14.5 11.6 - 15.2 gm/dl 09/09/2018 17:25 [facility] HCT 42.3 34.9 - 44.4 % 09/09/2018 17:25 [facility] MCV 88 81 - 98 fl 09/09/2018 17:25 [facility] MCH 30.1 26.7 - 33.3 pg 09/09/2018 17:25 [facility] MCHC 34.3 32.1 - 35.9 gm/dl 09/09/2018 17:25 [facility] RDW-CV 12.2 <14.7 % 09/09/2018 17:25 [facility] RDW-SD 39.8 <50.4 fl 09/09/2018 17:25 [facility] PLT 262 141 - 377 K/cmm 09/09/2018 17:25 [facility] MPV 10.0 9.5 - 12.7 fl 09/09/2018 17:25 EST [facility] Blood specimen (specimen) BLOOD SPECIMEN / Unknown 09/09/2018 15:44 EST 09/09/2018 16:21 EST Micah Phillip MD HEMATOLOGY & PF4 ORDERABLE S Final Result Performing Organization Address [facility] Co de Phone Number [facility] [address] [place] [address] * PROFILE IVF NON DONOR (09/09/2018 15:44 EST) [facility] Signature HIV 1/2 Antibody Negative Negative 09/10/19 19 10:53 [facility] Comment: Fourth generation assay performed on the [address]. If acute HIV-1 infection is suspected in a high risk patient, submit plasma specimen for HIV-1 RNA quantification test. Hepatitis B Core Antibody Negative Negative 09/10/2018 10:53 [facility] Hepatitis B Surface Antigen Negative Negative 09/10/2018 10:52 [facility] Syphilis Serology Negative 019 12:16 [facility] Comment:Reference Range: Neg ative Hep C Ab w Rfx PCR HCSCR2 Negative Negative 09/10/2018 10:53 [facility] Blood specimen (specimen) BLOOD SPECIMEN / Unknown 09/09/2018 15:44 EST 09/09/2018 16:21 EST Result [facility] Micah Phillip MD PACKAGES & DNA PROBE ORDER SUNSHINE Final Result Performing Organization Address City/[facility]/ZIP Co de Phone Number [facility] [address] [place] [address] documented in this encounter Visit Diagnoses Diagnosis Routine screening for STI (sexually transmitted infection)- Primary Screening examination for venereal disease Encounter for preconception consultation Other procreative management counseling and advice Preprocedural examination Preoperative examination, unspecified documented in this encounter Care Teams Clarifier Operator Helper Relationship Specialty Start Date End Date [facility] Internal Medicine, [address] [place], [place] [id number] PCP - General 11/03/15 10/01/23 documented as of this encounter
--- OUTSIDE RECORDS SUMMARY | 2024-09-16 01:39 | XMS_ITS | Encounter Summary ---
Author Organization [facility] Address [address] [place] [address] Care Team Providers Care Stone Carver Name Role Phone Internal Medicine, Primary Care Provi darrel Encounter Details Date Type Department Care Team (Late st Contact Info) Description 07/02/2018 Results Only Imaging [facility] - [address] [phone] Maryan Jameson MD [address] [facility], [address] [place] [address] Social History Tobacco Use Types [...] Procedure Name Priority Date/Time Associated Diagnosis Comments DIRECTOR OF AUDIOLOGY US FOLLICULAR 07/02/2018 8:58 EST documented in this encounter Results * DIRECTOR OF AUDIOLOGY US FOLLICULAR (07/02/2018 8:58 EST) Anatomical Region Laterality Modality Other 07/02/2018 8:58 EST 07/02/2018 9:02 EST Narrative 07/02/2018 9:02 EST Indication Cycle number 2, CC50/usf/hcg/IUI, CD#11. Uterus ======= Uterus: ?Visualized Uterus position: ?? Anteverted Endometrium: ?? Trilaminar endometrium Endometrial thickness, total ?? 4.8 mm Right Ovary Rt ovary: ??Visualized, normal appearance Rt ovarian follicle(s): ?Follicles identified D1 19.1 mm D2 16.0 mm D3 16.8 mm Mean ?? 17.3 mm Vol ?2.681 cm cubed D1 11.3 mm D2 13.0 mm D3 12.9 mm Mean ?? 12.4 mm Vol ?0.994 cm cubed Left Ovary Lt ovary: ??Visualized, normal appearance Lt ovarian follicle(s): ?Follicles identified D1 15.1 mm D2 13.5 mm D3 14.4 mm Mean ?? 14.3 mm Vol ?1.539 cm cubed [place] Appears normal. No free fluid visualized. Impression Limited transvaginal follicular ultrasound-[id number] Anteverted uterus with a trilaminar endometrial lining as described above. Normal appearing bilateral ovaries containing follicles as described above. Follow-up HCG trigger tomorrow (07/03/18) for IUI on 07/05/18. Comment ========= Ultrasound findings discussed w/patient. Risks of multiple gestation discussed at length with patient and she verbalizes understanding. She elects to proceed with IUI. DATE OF SERVICE: 07/02/2018 Procedure Note Gary Vega MD - 07/02/2018 Indication Cycle number 2, CC50/usf/hcg/IUI, CD#11. Uterus ======= Uterus: Visualized Uterus position: Anteverted Endometrium: Trilaminar endometrium Endometrial thickness, total 4.8 mm Right Ovary Rt ovary: Visualized, normal appearance Rt ovarian follicle(s): Follicles identified D1 19.1 mm D2 16.0 mm D3 16.8 mm Mean 17.3 mm Vol 2.681 cm cubed D1 11.3 mm D2 13.0 mm D3 12.9 mm Mean 12.4 mm Vol 0.994 cm cubed Left Ovary Lt ovary: Visualized, normal appearance Lt ovarian follicle(s): Follicles identified D1 15.1 mm D2 13.5 mm D3 14.4 mm Mean 14.3 mm Vol 1.539 cm cubed [place] Appears normal. No free fluid visualized. Impression Limited transvaginal follicular ultrasound-[id number] Anteverted uterus with a trilaminar endometrial lining as described above. Normal appearing bilateral ovaries containing follicles as described above. Follow-up HCG trigger tomorrow (07/03/18) for IUI on 07/05/18. Comment ========= Ultrasound findings discussed w/patient. Risks of multiple gestation discussed at length with patient and she verbalizes understanding. She elects to proceed with IUI. DATE OF SERVICE: 07/02/2018 us Maryan Torres MD G DIRECTOR OF AUDIOLOGY NIKOLAY VALENICA Final Result documented in this encounter Visit Diagnoses Not on filedocumented in this encounter Care Teams Stone Carver Relationship Specialty Start Date End Date [facility] Internal Medicine, Mp [address] [place] [address] PCP - General 11/03/15 10/01/23 documented as of this encounter
--- OUTSIDE RECORDS SUMMARY | 2024-09-16 01:39 | XMS_ITS | Encounter Summary ---
Author Organization [facility] Address [address] [place] [address] Care Team Providers Care Rehabilitation Aide/Scheduler Name Role Phone Internal Medicine, Primary Care Provi darrel Encounter Details Date Type Department Care Team (Late st Contact Info) Description 06/05/2018 Results Only Imaging [facility] - [address] [phone] Maryan Jameson MD [address] [facility], [address] [place] [address] Social History Tobacco Use [...] Procedure Name Priority Date/Time Associated Diagnosis Comments IMPORT EXPORT CLERK US FOLLICULAR 06/05/2018 9:04 EDT documented in this encounter Results * IMPORT EXPORT CLERK US FOLLICULAR (06/05/2018 9:04 EDT) Anatomical Region Laterality Modality Other 06/05/2018 9:04 EDT 06/05/2018 9:29 EDT Narrative 06/05/2018 9:29 EDT Indication Cycle number 1, cc 50 5-9/USF/HCG/IUI, CD#11. Uterus ======= Uterus: ?Visualized Uterus position: ?? Anteverted Endometrium: ?? Trilaminar endometrium Endometrial thickness, total ?? 5.9 mm Uterus other findings: stable appearing fibroid Right Ovary Rt ovary: ??Visualized, normal appearance Rt ovarian follicle(s): ?Follicles identified D1 14.1 mm D2 11.2 mm D3 10.5 mm Mean ?? 11.9 mm Vol ?0.866 cm cubed Left Ovary Lt ovary: ??Visualized, normal appearance Lt ovarian follicle(s): ?Follicles identified D1 21.1 mm D2 16.8 mm D3 19.3 mm Mean ?? 19.1 mm Vol ?3.580 cm cubed D1 17.6 mm D2 16.8 mm D3 14.5 mm Mean ?? 16.3 mm Vol ?2.240 cm cubed D1 7.0 mm D2 10.2 mm D3 10.4 mm Mean ?? 9.2 mm Vol ?0.389 cm cubed [place] Appears normal. No free fluid visualized. Impression Limited transvaginal follicular ultrasound-[id number] Anteverted uterus with a trilaminar endometrial lining as described above. Normal appearing bilateral ovaries containing follicles as described above. Follow-up per [facility] team, HCG trigger tomorrow for IUI 06/08. Comment ========= Ultrasound findings discussed w/patient. Risks of multiple gestation were discussed with the patient, including potential need for selective reduction. Patient elected to proceed with cycle rather than cancel. DATE OF SERVICE: 06/05/2018 Procedure Note Gary Vega MD - 06/05/2018 Indication Cycle number 1, cc 50 5-9/USF/HCG/IUI, CD#11. Uterus ======= Uterus: Visualized Uterus position: Anteverted Endometrium: Trilaminar endometrium Endometrial thickness, total 5.9 mm Uterus other findings: stable appearing fibroid Right Ovary Rt ovary: Visualized, normal appearance Rt ovarian follicle(s): Follicles identified D1 14.1 mm D2 11.2 mm D3 10.5 mm Mean 11.9 mm Vol 0.866 cm cubed Left Ovary Lt ovary: Visualized, normal appearance Lt ovarian follicle(s): Follicles identified D1 21.1 mm D2 16.8 mm D3 19.3 mm Mean 19.1 mm Vol 3.580 cm cubed D1 17.6 mm D2 16.8 mm D3 14.5 mm Mean 16.3 mm Vol 2.240 cm cubed D1 7.0 mm D2 10.2 mm D3 10.4 mm Mean 9.2 mm Vol 0.389 cm cubed [place] Appears normal. No free fluid visualized. Impression Limited transvaginal follicular ultrasound-[id number] Anteverted uterus with a trilaminar endometrial lining as described above. Normal appearing bilateral ovaries containing follicles as described above. Follow-up per [facility] team, HCG trigger tomorrow for IUI 06/08. Comment ========= Ultrasound findings discussed w/patient. Risks of multiple gestation were discussed with the patient, including potential need for selective reduction. Patient elected to proceed with cycle rather than cancel. DATE OF SERVICE: 06/05/2018 us Maryan Torres MD G IMPORT EXPORT CLERK NIKOLAY VALENCIA Final Result documented in this encounter Visit Diagnoses Not on filedocumented in this encounter Care Teams Rehabilitation Aide/Scheduler Relationship Specialty Start Date End Date [facility] Internal Medicine, [address] [place] [address] PCP - General 11/03/15 10/01/23 documented as of this encounter
--- OUTSIDE RECORDS SUMMARY | 2024-09-16 01:39 | XMS_ITS | Encounter Summary ---
Author Organization [facility] Address [address] [place] [address] Care Team Providers Care Churn Driller Name Role Phone Internal Medicine, Primary Care Provi darrel Reason for Visit * Reason Onset Date Comments Appointment Related 07/05/2018 Encounter Details Date Type Department Care Team (Late st Contact Info) Description 07/05/2018 Telephone [facility] - [address] [address] [place] [address] [place], [place] [id number] Appointment Related Social History Tobacco Use Types [...] Telephone Encounter - Micah Phillip MD - 07/05/2018 0920 EST Images from the original note were not included. TELEPHONE CALL Patient's significant other, Tremaine, called to clarify HCG trigger time at IUI appointment time. Patient never got the message from Saturday to change her trigger time to night instead of Saturday night as discussed in clinic. Patient gave herself HCG injection last night at 1830. Discussed with office staff. Plan for patient to come in tomorrow AM for 0830 IUI. Andrology aware.Dr. Vega in agreement with plan of care. Electronically signed by: Micah Phillip MD, PGY5 Fellow Reproductive Endocrinology & Infertility [facility] 07/05/2018 / 9:20 documented in this encounter Plan of Treatment Not on file documented as of this encounter Visit Diagnoses Not on filedocumented in this encounter Care Teams Churn Driller Relationship Specialty Start Date End Date [facility] Internal Medicine, [place] [address] [facility] [place] [address] PCP - General 11/03/15 10/01/23 documented as of this encounter
--- OUTSIDE RECORDS SUMMARY | 2024-09-16 01:39 | XMS_ITS | Encounter Summary ---
Author Organization [facility] [place] [address] Care Team Providers Care Airport Planner Name Role Phone Lela Yanez APRN Primary Care Provider Un available Reason for Visit * Reason Comments Patient Education Encounter Details Date Type Department Care Team (Late st Contact Info) Description 06/06/2018 Specialty [place] [phone] Kiya Hernández Social History Tobacco Use Types Packs/Day Years Used Date Smoking Tobacco: Never Sex and Gender Information Value Date Recorded Sex Assigned at Not on file Gender Identity Not on file Sexual Orientation Not on file documented as of this encounter Progress Notes * Kiya Steele, [facility] - 06/06/2018 4:39 PM EDT Specialty Pharmacy Consultation; Kiya Steele Hema Comprehensive Medication Management (CMM) Reanna Espinoza Diagnosis: Infertility with scheduled IVF procedure Therapy Start Date: 06/06/18 Contact in person or via telephone: In-Person Is the patient willing to proceed with the Clinical Assessment? No Summary and Recommendations: Spoke with , Tremaine, on behalf of Reanna regarding first-time fill of Ovidrel. Reanna is undergoing IVF procedure in the next 48 hours. She was a customer at [facility] pharmacy, and had received the other medications in her fertility therapy from that pharmacy. [facility] did not have Ovidrel in stockand the patient was due to administer her dose of Ovidrel tonight (06/06/18). The prescription was sent to us for a one-time fill. Her was instructed on appropriate storage, transport, and handling. Initial consult and medication education was offered to Tremaine, as well as an additional call to Reanna for therapy review. Tremaine stated that the pair received ample education and trainingfrom the [facility] IVF Clinic, and opted out of the initial consult with the pharmacist. Her was also informed of the [facility] Specialty Services, such as routine clinical follow-up assessments and monthly supply check-in and refill reminders. Tremaine states this is a one-time fill, and opted not to enroll into our services at this time. The patient's was given our welcome packet that details our services, and was encouraged to have Reanna reach out at any time if she would like to enrollin the [facility] Specialty Clinical Management Program. Her was also provided with our direct line, along with instructions as to how to reach the on-call pharmacist, in case there were any urgent questions, concerns, or issues with adele's scheduled administration. Economic Assessment: Patient is agreeable to medication copay: Yes Copay Amount: 168.25 Day Supply: 1 Date Needed: 06/06/18 Copay assistance required: no ?? Therapy Assessment: ?? Appropriate Therapy: Yes Current Medication Dosing/Route/Frequency: Ovidrel 250 mg/0.5mL Inject the contents of one syringe (150 mcg) subcutaneously once for one dose as directed by physician ?? Additional equipment/supplies required: no - patient has sharps container at home Care Plan Reviewed and Approved by Pharmacist : ? Yes ?? Medications Reviewed: yes Medications reconciled: no Allergies Reviewed: yes Allergies reconciled: no Informed patient of specialty pharmacy services: Yes -Patient received welcome packet: Yes Date Received: 06/06/18 -Patient returned signed Rights & Responsibiliites: Yes Date Received: 06/06/18 -Patient is aware a licensed pharmacist is available 24 hours a day, 7 days a week to discuss medication-related questions or concerns: Yes -Patient verbalizes understanding of the common side effect profile of their medication. The patient is able to call 911 or seek urgent care if signs/symptoms of allergy or harmful adverse reactions occur: Yes Pt understands no changes to current drug regimen were made at the appointment and that [facility] is providing recommendations (summary located at top of note) for provider review and follow up. Kiya Steele RPH 06/06/18 10:36 AM * Kiya Steele RPH - 06/06/2018 4:39 PM EDT Clinical Management Plan: Transfer of Care/Discharge Specialty Services Specialty Pharmacy Consultation; Kiya Steele RPH Comprehensive Medication Management (CMM) Reanna Espinoza [address] [facility] [phone] Telephone Information: Work Phone Not on file. Mobile Not on file. Is the patient transferring services to a different Specialty Pharmacy or discontinuing the medication? One-time fill for patient- patient prefers to continue services with [facility] Pharmacy Medication: Ovidrel 250 mcg/0.5 mL Reason for discontinuation or transfer: Patient opted out of [facility] Specialty Clinical Management Program. Regular customer of [facility], but filled Ovidrel with [facility] due to supply shortage at [facility]. Approximate date of discontinuation or transfer: 06/06/18 Patient's response to therapy:IVF procedure scheduled - outcome unknown Summary of services provided by [facility] Specialty: Offered initial therapy assessment and patient education to patient and (Tremaine), as well as routine follow-up and refill/supply check-ins. These services were declined. Summary of on-going needs: As determined by clinic and patient Referral for additional services (if applicable): n/a Instructions provided to patient about discharge/transfer: yes - was provided with on-call pharmacists pablito lopez any urgent questions, concerns, orissues with injection arise. He was also provided with the welcome packet, with instructions that Reanna can reach out at any time to enroll in our services. Provider aware of discontinuation or transfer: Yes Patient understands no changes to current drug regimen were made at the appointment and that [facility] isproviding recommendations (summary located at top of note) for provider review and follow up. Kiya Steele RPH 06/08/18 11:16 AM documented in this encounter Plan of Treatment Not on file documented as of this encounter Visit Diagnoses Not on filedocumented in this encounter Care Teams Airport Planner Relationship Specialty Start Date End Date Lela Yanez APRN PCP - General 04/19/14 08/20/24 documented as of this encounter
--- OUTSIDE RECORDS SUMMARY | 2024-09-16 01:39 | XMS_ITS | Encounter Summary ---
Author Organization [facility] Address [address] [place] [address] Care Team Providers Care Offender Employment Specialist Name Role Phone Internal Medicine, Primary Care Provi darrel Reason for Visit * Reason Onset Date Comments Follow-up 07/05/2018 Encounter Details Date Type Department Care Team (Late st Contact Info) Description 07/05/2018 Telephone [facility] Reproductive Medicine [facility] Infertility Center - [address] [address] Gary Vega MD [address] [place] [address] [phone] Follow-up Social History Tobacco Use Types Packs/Day [...] encounter Miscellaneous Notes * Telephone Encounter - Gary Vega MD - 07/05/2018 0910 EST Called patient regarding IUI. She was scheduled to come in at 8:30 am, is not here yet. Patient didnot answer her phone, left message to call as soon as possible. Gary Vega MD Reproductive Endocrinology and Infertility documented in this encounter Plan of Treatment Not on file documented as of this encounter Visit Diagnoses Not on filedocumented in this encounter Care Teams Offender Employment Specialist Relationship Specialty Start Date End Date [facility] Internal Medicine, [place] [address] [facility] [place] [address] PCP - General 11/03/15 10/01/23 documented as of this encounter
--- OUTSIDE RECORDS SUMMARY | 2024-09-16 01:39 | XMS_ITS | Encounter Summary ---
Author Organization [facility] Address [address] [place] [address] Care Team Providers Care Council Member Name Role Phone [facility] Internal Medicine, Primary Care Provi darrel Encounter Details Date Type Department Care Team (Late st Contact Info) Description 06/06/2018 Orders Only [facility] Reproductive Medicine & Infertility Center - [facility] [address] [place] [address] Irasema Mann RN Social History Tobacco Use Types Packs/Day [...] directed by physician 1 Syringe 06/06/2018 9 documented in this encounter Progress Notes * Irasema Mann RN - 06/06/2018 1136 EDT Ovidrel ordered to pharmacy; pt did not garbage pick up man at [facility] when here for [facility], thought Rx would be obtainable at [facility]. Contacted [facility], and they do not have any hCG in stock; per pharmacy, they have Ovidrel in stock today. Pt verbalizes understanding and will have her garbage pick up man at today, and in the future she will get Ovidrel if needed at [facility] pharmacy. * Irasema Mann RN - 06/06/2018 1136 EDT James: [id number] PA submitted; medication is not covered by pt's plan. Returned VM from Dior at pharmacy to inform her. Pt has already picked up the medication. documented in this encounter Plan of Treatment Not on file documented as of this encounter Visit Diagnoses Not on filedocumented in this encounter Care Teams Council Member Relationship Specialty Start Date End Date [facility] Internal [facility], [facility] [address] [facility] [place] [address] PCP - General 11/03/15 10/01/23 documented as of this encounter
--- OUTSIDE RECORDS SUMMARY | 2024-09-16 01:39 | XMS_ITS | Encounter Summary ---
Author Organization [facility] [address] Care Team Providers Care Field Producer Name Role Phone Lela Yanez APRN Primary Care Provider Un available Encounter Details Date Type Department Care Team (Late st Contact Info) Description 04/19/2014 8:15 AM EDT Office Visit Dermatology at [address] [place] [phone] Darren Kimble MD [address] [facility] [place] [address] Nevus (Primary Dx) Discharge Disposition: Home Social History Tobacco Use Types Packs/Day Years Used Date Smoking Tobacco: Never Assessed Sex and Gender Information Value Date Recorded Sex Assigned at Not on file Gender Identity Not on file Sexual Orientation Not on file documented as of this encounter Progress Notes * Darren Kimble MD - 04/19/2014 8:31 AM EDT Problem: Nevus. Reanna is a 28-year-old woman who has a mole that has been present all her life that has been growing and on occasion bleeds. It is often rubbed and irritated. She would like to have it removed. Patient is referred today by Lela Yanez. I had excised a nevus from her sister's cheek and this healed very well, Reanna states. Physical examination reveals a 6 mm fleshy compound versus intradermal nevus present on her chin. She has brown eyes and brown hair and no other nevi of concern to her, and no other facial compound versus intradermal nevi. Assessment and Plan: 1. Nevus, chin, often rubbed and irritated. a. Will schedule 30-minute appointment for excision of this in the near future. b. Discussed procedure with patient, answered questions. c. Discussed one week wound care instructions, healing time. Return to clinic here for procedure. COPY: Lela Yanez N.P. documented in this encounter Miscellaneous Notes * Addendum Note - Darren Kimble MD - 04/19/2014 8:36 AM EDTAddended by: DARREN KIMBLE on: 04/19/2014 08:36 AM Modules accepted: Level of Service documented in this encounter Plan of Treatment Not on file documented as of this encounter Visit Diagnoses Diagnosis Nevus- Primary Benign neoplasm of skin, site unspecified documented in this encounter Care Teams Field Producer Relationship Specialty Start Date End Date Lela Yanez APRN PCP - General 04/19/14 08/20/24 documented as of this encounter
--- OUTSIDE RECORDS SUMMARY | 2024-09-16 01:39 | XMS_ITS | Encounter Summary ---
Author Organization [facility] Address [address] [place] [address] Care Team Providers Care Public Relations Assistant Name Role Phone Internal Medicine, Primary Care Provi darrel Encounter Details Date Type Department Care Team (Late st Contact Info) Description 05/01/2018 23:03 EDT - 05/01/2018 23:04 EDT Hospital Encounter [address] [address] Maryan Jameson MD [address] [facility] [address] [place] [address] Discharge Disposition: Home or Self [...] Diagnoses Diagnosis Z31.41 Encounter for fertility testing-Z31.41[ICD-10-CM] documented in this encounter Discharge Disposition Disposition Code Departure Means Destination Home or Self Care documented in this encounter Plan of Treatment Not on file documented as of this encounter Visit Diagnoses Not on filedocumented in this encounter Care Teams Public Relations Assistant Relationship Specialty Start Date End Date [facility] Internal Medicine, [place] [address] [place] [address] PCP - General 11/03/15 10/01/23 documented as of this encounter
--- OUTSIDE RECORDS SUMMARY | 2024-09-16 01:39 | XMS_ITS | Encounter Summary ---
Author Organization [facility] Address [address] [place] [address] Care Team Providers Care Tobacco Drier Operator Name Role Phone [facility] Internal Medicine, Primary Care Provi darrel Reason for Visit * Reason Comments Follow-up Encounter Details Date Type Department Care Team (Late st Contact Info) Description 08/20/2018 13:45 EST [facility] [address] [place], [place] [phone] Meliza Sena MD [address] [facility] [address] [place] [address] [place] [address] [place] [phone] Female infertility unexplained after evaluation (Primary Dx) Discharge Disposition: Auto Discharge Social [...] Sign Reading Time Taken Comments Blood Pressure 102/82 08/20/2018 1329 EST Pulse - - Temperature - - Respiratory Rate - - Oxygen Saturation - - Inhaled Oxygen Concentration - - Weight 60.8 kg (134 lb) 08/20/2018 1329 EST Height 160 cm (5' 3) 08/20/2018 1329 EST Body Mass Index 23.74 08/20/2018 1329 EST documented in this encounter Functional Status [...] Progress Notes * Micah Phillip MD - 08/20/2018 1345 EST Images from the original note were not included. REPRODUCTIVE ENDOCRINOLOGY & INFERTILITY FOLLOW UP VISIT Subjective: Patient ID: Reanna Espinoza is an 33 y.o. G0 female. Chief Complaint Patient presents with ??? Follow-up Patient presents to discuss next steps s/p IUI x 3. Protocol has been CC50/USF/HCG/IUI Work up reviewed below and patient is in the category of unexplained infertility. Objective: BP 102/82 Ht 160 cm (63) Wt 60.8 kg (134 lb) LMP 08/17/2018 BMI 23.74 kg/m?? Physical Exam GEN: NAD, cooperative, A&O x 3 PSYCH: euthymic affect, normal thought content PULM: good inspiratory effort bilaterally PELVIC: not indicated Prior Testing: Component Latest Ref Rng & Units 05/01/2018 Chlamydia Result Negative GC Result Negative Rubells IgG Ab Positive Varicella IgG Ab Positive 25OH Vitamin D Tot 30 - 100 ng/ml 46.5 TSH 0.47 - 4.68 uIU/ml 1.07 AMH Result 6.93 Sperm Washes: Component Latest Ref Rng & Units 06/08/2018 07/06/2018 Media Lot #, POC [id number]; [id number]; [id number] Expiration, POC 07/2019; 08/2018; 01/2019 Pre-Wash Volume, POC >= 2 ml 3.0 3.1 Pre-Wash Count, POC >=20 million/ml 60 86 Pre-Wash Motility, POC >= 50% 67 63 Post-Wash, POC ml 0.5 0.5 Post-Wash Count, POC million/ml 76 118 Post-Wash Motility, POC % 82 80 Total Motile, POC >= 6 million 31 47 Component Latest Ref Rng & Units 08/04/2018 Media Lot #, POC [id number]; [id number] Expiration, POC 07/2019; 01/2019 Pre-Wash Volume, POC >= 2 ml 2.0 Pre-Wash Count, POC >=20 million/ml 55 Pre-Wash Motility, POC >= 50% 71 Post-Wash, POC ml 0.5 Post-Wash Count, POC million/ml 110 Post-Wash Motility, POC % 85 Total Motile, POC >= 6 million 46.5 Formal SA: Component Latest Ref Rng & Units 05/01/2018 Partner Reanna Phillip Time Received 1,510 Received by lyb Examined at 1,530 Viscosity Norm/Viscous Low viscosity pH 7.2 - 9 8.5 Specimen Volume >=1.5 ml 3.2 Sperm Count >=15 M/ml 63.3 Total Sperm Count >=39 Million 202.5 Motility >=40% 62 Motility, Speed of Progression(graded),POC 3+UndulatingRapidProg Total Motile Sperm <=10mill do IUI scrn million 125.6 Normal Forms >=4 % 9 Semen Comment Permission to discuss results with partner over the phone: YES Cavity/Tubal Eval (05/05/18): Indication fertility testing. Assessment LMP on 04/30/2018. [...] Normal. No free fluid visualized. Impression Transvaginal sonohysterogram-[id number] [id number] Anteverted uterus with a trilaminar endometrium as [...] tubal patency was appreciated on today's examination. Assesment: 33 y.o. G0 female who presents for fertility counseling. Plan: Reanna was seen today for follow-up. 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 We went through the patient's evaluation as well as her ultrasounds during her3 IUI cycles and discussed that she has had a normal response to Clomid 50 mg cycles day 5 through 9. It appears that she is ovulatory, both fallopian tubes are open, preconception as well as fertility related serologic tests are within normal limits, and semen analysis in all 3 sperm wash ups are normal as well. We briefly discussed the estimated rates per cycle for treatment of unexplained infertility as documented below. Intervention rate per cycle (%) Expectant management 1 to 3 IUI 4 to 6 Clomiphene citrate 4 to 6 Clomiphene plus IUI 7 to 9 Gonadotropin injection 4 to 10 Gonadotropin injection plus IUI 9 to 16 In vitro fertilization 30 to 45 We discussed that if she would like to proceed with additional IUI cycles we would switch her to letrozole as a means of changing agents and potentially fostering a thicker endometrial lining development. Protocol moving forward would be: LTZ 2.5/USF/HCG/IUI Patient was advised to proceed with no more than 2-3 cycles of this prior to proceeding directly toIVF. The patient was then briefly counseled on the more successful albeit more invasive management plan of in vitro fertilization. She was given an information pamphlet and provided time to ask questions about the process. We briefly discussed that should she desire to undergo in vitro fertilization that she would need an IVF intake appointment with her attending of record as well as the necessary FDArequired labs for both her and her partner. Patient appreciated all this information and will discuss this information with her . Patient's plan of care with directly discussed and developed with attending [place] physician Dr. Sena. Electronically signed by: Micah Phillip MD, PGY5 Fellow Reproductive Endocrinology & Infertility [facility] 08/20/2018 / 13:33 * Meliza Sena MD - 08/20/2018 6515 EST Attestation statement: I discussed the patient with the resident/fellow at the time of the visit. Moraima with the findings and the plan of care documented in the resident's/fellow's note. documented in this encounter Plan of Treatment Not on file documented as of this encounter Visit Diagnoses Diagnosis Female infertility unexplained after evaluation- Primary documented in this encounter Care Teams Tobacco Drier Operator Relationship Specialty Start Date End Date [facility], [place] [address] [facility] [place] [address] PCP - General 11/03/15 10/01/23 documented as of this encounter
--- OUTSIDE RECORDS SUMMARY | 2024-09-16 01:39 | XMS_ITS | Encounter Summary ---
Author Organization [facility] Address [address] [place] [address] Care Team Providers Care Summer Internship Name Role Phone [facility] Internal Medicine, Primary Care Provi darrel Encounter Details Date Type Department Care Team (Late st Contact Info) Description 05/01/[address] [facility] Reproductive Medicine & Infertility Center - [facility] [address] [place] [address] Maryan Jameson MD [address] [facility], [address] [place] [address] Encounter for fertility testing; Screen for STD (sexually transmitted disease) Social History Tobacco Use Types Packs/Day Years [...] Date/Time Associated Diagnosis Comments CHLAMYDIA/N. GONORRHOEAE AMPLIFIED RNA, URINE Routine 05/01/2018 14:55 EDT Screen for STD (sexually transmitted disease) SPINAL MUSCULAR ATROPHY CARRIER SCREENING BY DEL/DUP ANALYSIS Routine 05/01/2018 14:38 EDT Encounter for fertility testing ANTIMULLERIAN HORMONE ([facility]) REPROSOURCE Routine 05/01/2018 14:38 EDT Encounter for fertility testing CYSTIC FIBROSIS MUTATION ANALYSIS, 106 PANEL Routine 05/01/2018 14:38 EDT Encounter for fertility testing VITAMIN D (25,OH) Routine 05/01/2018 14: 38 EDT Encounter for fertility testing RUBELLA IGG ANTIBODY Routine 05/01/2018 14:38 EDT Encounter for fertility testing VARICELLA IGG ANTIBODY Routine 8 14:38 EDT Encounter for fertility testing TSH Routine 05/01/2018 14:38 EDT Encounter for fertility testing documented in this encounter Results * CHLAMYDIA/N. GONORRHOEAE AMPLIFIED RNA, URINE (05/01/2018 14:55 EDT) Chlamydia Result Negative 05/02/20 18 13:49 EDT [facility] GC Result Negative 05/02/2018 13:49 EDT [facility] Comment: A first catch urine specimen is acceptable for detection of Gonorrhea and Chlamydia, but might detect up to 10% fewer infections when compared with vaginal and endocervical swab samples. Specimen of unknown material (specimen) URINE / Unknown 05/01/2018 14:55 EDT 05/01/2018 16:14 EDT us Maryan Torres MD MICROBIOLOGY - GENERAL ORDERABLES Final Result [facility] [address] [place] [address] * CYSTIC FIBROSIS MUTATION ANALYSIS, 106 PANEL (05/01/2018 14:38 EDT) Pathologist [facility] Result Summary NEGATIVE 05/10/2018 8:04 EDT [facility] Result (Note) 05/10/2018 8:04 EDT [facility] Comment:None of the listed m utations were detected. Interpretation (Note) 05/10/2018 8:04 EDT [facility] Comment: Having excluded the [...] Carrier Freq) Northern ? (91%, 09/05) Mixed ?134 ? (82%, 09/05) Southern ? 115 ? (79%, 09/05) Eastern ?127 ? (77%, 09/10) Ashkenazi Alevism ? (97%, 09/05) Jordanian American ? (91%, 09/05) ? (81%, 65) [place] Citizen ? 251 ? (82%, 1/46) [place] Citizen* ? 194 ? (54%, ) *does not apply to individuals of Latvian ancestry . These calculations are based on [...] not detected by this assay. Contact the [facility] at for further discussion regarding this option. . A genetic consultation may be of benefit. . ADDITIONAL INFORMATION An online research opportunity called Picaboo ([email or web address]), a project of [employer], is available for the recipient of this genetic test. This patient registry collects de-identified genetic and health information to advance the knowledge of genetic variants. [facility] is a collaborator of [employer]. This may not be applicable for all [...] allogenic donors will interfere with testing. Call [facility] for instructions for testing patients who have received a bone marrow transplant. . Multiple in-silico evaluation tools may have been used to assist in the interpretation of these results. Of note, the sensitivity and specificity of these tools for the determination of pathogenicity is currently unvalidated. . This test was developed and its performance characteristics determined by [facility] in a manner consistent with CLIA requirements. This test has not been cleared or approved by the U.S. Food and Drug Administration. Specimen WB Whole Blood 05/10/2018 8:04 [facility] Method (Note) 05/10/2018 8:04 [facility] Comment: The multiplex PCR based assay utilizing the Anadys Array platform was used to detect 106 mutations, including the 23 mutations specified in the [place] Citizen [employer] (ACMG) standards for population based carrier screening. The mutations are as follows: [id number], [id number], G542X, G85E, R117H, U9307B (TGG>TGA), 621+1G>T, 711+1G>T, K8925P (C>A), N3165V (C>G), R334W, R347P, A455E, 1717-1G>A, R553X, R560T, G551D, 1898+1G>A, 2184delA, 2789+5G>A, 3120+1G>A, C6414L, 3659delC, 3849+10kbC>T, the deletion of exons 2-3, 296+2T>A, E60X, R75X, 394_395delTT, 405+1G>A, 406-1G>A, E92X, 444delA, 457TAT>G, R117C, Y122X, 574delA, 663delT, G178R, 711+5G>A, 712-1G>T, H199Y, P205S, L206W, 075mbf02, 935delA, 936delTA, isstrE047, 1078delT, G330X, T338I, R347H, R352Q, Q359K, T360K, 1288insTA, S466X (C>A), S466X (C>G), G480C, Q493X, 1677delTA, C524X, S549N, S549R (T>G), Q552X, A559T, 1811+1.6kbA>G, 1812-1G>A, 1898+1G>T, 1898+1G>C, 1898+5G>T, P574H, 5567lac73, 2043delG, 2644dtb6>A, 2588iwt02msh5, 2108delA, 2143delT, 2183_2184delAAinsG, 2184insA, R709X, K710X, 2307insA, R764X, Q890X, 2869insG, 3171delC, 9600dma0, G6204W, C7003E (TGG>TAG), B9601E (C>G), X9446Y (C>A), G1841E, C9901Y, J4712S, J6471W, 9931tsk5, J7928L, V9812B (TGG>TAG), 3791delC, A1008T, 3876delA, I7081Y, N8577W, 3905insT, and 4016dupT mutations are detected. Poly T determination and confirmatory testing of homozygous results are performed as reflex tests when appropriate. Released By Álvaro Rowan, Ph.D. 7 qi [id number] 05/10/2018 8:04 EDT [facility] Comment: Performed or Referred by: [facility], [address] [place] [address] Blood specimen (specimen) BLOOD SPECIMEN / Unknown 05/01/2018 14:38 EDT 05/01/2018 15:05 EDT us Maryan Torres MD CHEMISTRY & BLO OD GAS ORDERABLES Final Result [facility] [address] [place] [address] * SPINAL MUSCULAR ATROPHY CARRIER SCREENING BY DEL/DUP ANALYSIS (05/01/2018 14:38 EDT) Result Summary (Note) 05/09/2018 8:16 EDT [facility] Comment:NEGATIVE FOR SMN1 DE LETION (SEE INTERPRETATION) Result (Note) 05/09/2018 8:16 [facility] Comment: Two copies of ??SMN1 ??exon 7 were detected. Two copies of ??SMN2 ??were detected. Interpretation (Note) 05/09/2018 8:16 [facility] Comment: This result indicates a [...] Copies (2/0) ?? 3 Copies (3/0) ----- ?08/3499 Ashkenazi Alevism ?? 41 ?350 ?08/3999 ?53 ?628 ?08/4999 ?1/66 ?1/121 ?08/2999 ? 1/117 ? 08/1060 ? 1/64575 . These calculations are based on the [...] Accession number(s) (build GRCh37 ([id number])): ??[id number]. See [email or web address] [email or web address] (Test ID SMNCS) for additional information about [...] allogenic donors will interfere with testing. Call [facility] for instructions for testing patients who have received a bone marrow transplant. . TEST CLASSIFICATION This test was developed and its performance characteristics determined by [facility] in a manner consistent with CLIA requirements. This test has not been cleared or approved by the U.S. Food and Drug Administration. Additional Info (Note) 8:16 [facility] Comment: REFERENCES . 1. J Med Tyra. 2009; 46: 641-644 (PMID: [id number]) Specimen WB Whole Blood 05/09/2018 8:16 [facility] Released By Álvaro Rowan, Ph.D. 7 mk [id number] 05/09/2018 8:16 EDT [facility] Comment: Performed or Referred by: [facility], [address] [place] [address] Blood specimen (specimen) BLOOD SPECIMEN / Unknown 05/01/2018 14:38 EDT 05/01/2018 15:05 EDT us Maryan Torres MD CHEMISTRY & BLO OD GAS ORDERABLES Final Result Performing Organization Address [facility] Co de Phone Number [facility] [address] [place] [address] * ANTIMULLERIAN HORMONE ([facility]) [facility] (05/01/2018 14:38 EDT) [facility] Result See Pathology Scanned Report in PRISM. 05/06/2018 7:42 EDT [facility] Comment: Assayed at [facility], [place], [place] Blood specimen (specimen) BLOOD SPECIMEN / Unknown 05/01/2018 14:38 EDT 05/01/2018 15:05 EDT us Maryan Torres MD CHEMISTRY & BLO OD GAS ORDERABLES Final Result Performing Organization Address [facility] Co de Phone Number [facility] [address] [place] [address] * TSH (05/01/2018 14:38 EDT) TSH 1.07 0.47 - 4.68 uIU/ml 05/01/2018 16:31 EDT [facility] Comment: The results of this assay can be falsely lowered due to the consumption of Biotin. Blood specimen (specimen) BLOOD SPECIMEN / Unknown 05/01/2018 14:38 EDT 05/01/2018 15:05 EDT us Maryan Torres MD CHEMISTRY & BLO OD GAS ORDERABLES Final Result [facility] [address] [place] [address] * VITAMIN D (25,OH) (05/01/2018 14:38 EDT) 25OH Vitamin D Tot 46.5 30 - 100 ng/ml 05/02/2018 15:36 EDT [facility] Comment: Reference Range: Deficient = <10 ng/ml Insufficient = 10-30 ng/ml Sufficient = 30-100 ng/ml Toxic = >100 ng/ml Blood specimen (specimen) BLOOD SPECIMEN / Unknown 05/01/2018 14:38 EDT 05/01/2018 15:05 EDT us Maryan Torres MD CHEMISTRY & BLO OD GAS ORDERABLES Final Result Performing Organization Address [facility] Co de Phone Number [facility] [address] [place] [address] * VARICELLA IGG ANTIBODY (05/01/2018 14:38 EDT) Varicella IgG Ab Positive 05/02/2018 15:35 EDT [facility] Comment: Presence of detectable Varicella Zoster virus IgG antibodies. Blood specimen (specimen) BLOOD SPECIMEN / Unknown 05/01/2018 14:38 EDT 05/01/2018 15:05 EDT Result Farrukh Torres MD IMMUNOLOGY AND SEROLOGY ORDERABLES Final Result [facility] [address] [place] [address] * RUBELLA IGG ANTIBODY (05/01/2018 14:38 EDT) Rubells IgG Ab Positive 05/02/2018 15:50 EDT [facility] Comment: New methodology in use 11/19/16. Positive for IgG antibodies to Rubella virus. Blood specimen (specimen) BLOOD SPECIMEN / Unknown 05/01/2018 14:38 EDT 05/01/2018 15:05 EDT us Maryan Torres MD CHEMISTRY & BLO OD GAS ORDERABLES Final Result [facility] [address] [place] [address] documented in this encounter Visit Diagnoses Diagnosis Encounter for fertility testing Fertility testing Screen for STD (sexually transmitted disease) Screening examination for venereal disease documented in this encounter Care Teams Summer Internship Relationship Specialty Start Date End Date [facility] Internal Medicine, [address] [place], [place] [address] PCP - General 11/03/15 10/01/23 documented as of this encounter
--- OUTSIDE RECORDS SUMMARY | 2024-09-16 01:39 | XMS_ITS | Encounter Summary ---
Author Organization [facility] Address [address] [place] [address] Care Team Providers Care Turf And Grounds Supervisor Name Role Phone Internal Medicine, Primary Care Provi darrel Reason for Visit * Reason Onset Date Comments Coordination Of Care 06/23/2018 Encounter Details Date Type Department Care Team (Late st Contact Info) Description 06/23/2018 Telephone [facility] Reproductive Medicine & Infertility Center - [address] [address] Wayne Hardin RN Coordination Of Care Social History Tobacco [...] Refills Last Filled Start Date End Date clomiPHENE (CLOMID) 50 mg tablet Take 1 Tab by mouth daily. Take cycle days 5-9 5 Tab 06/23/2018 07/21/2018 documented in this encounter Miscellaneous Notes * Telephone Encounter - Wayne Hardin RN - 06/23/2018 1042 EST Returned VM from pt reporting CD#2 today. Pt confirms plan of care. Will take UPT prior to startingclomid on CD#5. Intrauterine Insemination Cycle number: 2 Plan:CC50/usf/hcg/IUI 1.) Call from patient- Date: 06/23/2018 Time: 10:45 Previous IUI: yes A.) Attended injection site technique class: yes B.) Pre-certfied: yes C.) Consent signed by patient & partner to use specimen: yes D.) Aware of current costs: yes E.) GC/ Chlamydia lab done: yes RXD: no *All labs and consents must be current to proceed* 2.) Last Menstrual Period: 06/22/18 WNL?: yes 3.) OK to proceed? yes A.) Ovulation Induction Medication: clomid Dose: 50mg Cycle days: 5-9 [facility]acy: [facility] Refills:0 B.) Human Chorionic Gonadotropin (HCG) 10,000 unit subcutaneous injection Pharmacy: [facility] Refills: 2 D.) USF scheduled- Cycle Day: 11 Date: 07/02 Time: 0830 WAYNE HARDIN RN 06/23/2018 10:45 documented in this encounter Plan of Treatment Not on file documented as of this encounter Visit Diagnoses Not on filedocumented in this encounter Discontinued Medications Medication Sig Discontinue Reason Start Date End Da te clomiPHENE (CLOMID) 50 mg tablet Take 1 Tab by mouth daily. Take cycle days 5-9 Reorder 05/30/2018 06/23/2018 documented as of this encounter Care Teams Turf And Grounds Supervisor Relationship Specialty Start Date End Date [facility], [address] [place] [address] PCP - General 11/03/15 10/01/23 documented as of this encounter
--- OUTSIDE RECORDS SUMMARY | 2024-09-16 01:39 | XMS_ITS | Encounter Summary ---
Author Organization [facility] Address [address] [place] [address] Care Team Providers Care Emergency Crew Supervisor Name Role Phone [facility] Internal Medicine, Primary Care Provi darrel Reason for Visit * Reason Onset Date Comments Follow-up 08/18/2018 Encounter Details Date Type Department Care Team (Late st Contact Info) Description 08/18/2018 Telephone [facility] Reproductive Medicine & Infertility Center - [facility] Outpatient Building [address] [place] [id number] Lanette Pagan RN Follow-up Social History Tobacco Use Types Packs/Day [...] Notes * Telephone Encounter - Lanette Pagan MALIA - 08/18/2018 0799 EST PC from Reanna to report that she is CD #2 s/p her 3rd IUI. Advised follow up appointment to review plan. Appointment provided with Dr Phillip on 08/20/18 @[id number]. documented in this encounter Plan of Treatment Not on file documented as of this encounter Visit Diagnoses Not on filedocumented in this encounter Care Teams Emergency Crew Supervisor Relationship Specialty Start Date End Date [facility] Internal Medicine, [address] [place] [address] PCP - General 11/03/15 10/01/23 documented as of this encounter
--- OUTSIDE RECORDS SUMMARY | 2024-09-16 01:39 | XMS_ITS | Encounter Summary ---
Author Organization [facility] Address [address] [place] [address] Care Team Providers Care Geographic Information System Surveyor Name Role Phone Internal Medicine, Primary Care Provi darrel Reason for Visit * Reason Onset Date Comments Appointment Related 07/02/2018 Encounter Details Date Type Department Care Team (Late st Contact Info) Description 07/02/2018 Telephone [facility] Reproductive Medicine & Infertility Center - [address] [address] Irasema Mann RN Appointment Related Social History Tobacco Use Types [...] encounter Miscellaneous Notes * Telephone Encounter - Irasema Mann RN - 07/02/2018 1050 EST Left detailed VM on pt's identified mailbox with revised plan of care: instead of triggering 07/04 for 07/06 IUI, pt should trigger 07/03 for 07/05 IUI. Requested pt call back to confirm that she has received this message. * Telephone Encounter - Irasema Mann RN - 07/02/2018 1049 EST ----- Message from Micah Phillip MD sent at 07/02/2018 10:08 EST ----- Regarding: IUI saturday Daniel re-reviewed my images and wants this patient to trigger tomorrow for IUI Saturday (instead of Saturday for which she was already scheduled). Can you please call her, advise her of the new plan, and reschedule the appointment? Sorry :-( MJK documented in this encounter Plan of Treatment Not on file documented as of this encounter Visit Diagnoses Not on filedocumented in this encounter Care Teams Geographic Information System Surveyor Relationship Specialty Start Date End Date [facility] Internal Medicine, [place] [address] [place] [place] [address] PCP - General 11/03/15 10/01/23 documented as of this encounter
--- OUTSIDE RECORDS SUMMARY | 2024-09-16 01:39 | XMS_ITS | Encounter Summary ---
Author Organization [facility] Address [address] [place] [address] Care Team Providers Care Professor Of Nursing Name Role Phone Internal Medicine, Primary Care Provi darrel Reason for Visit * Reason Onset Date Comments Coordination Of Care 07/21/2018 Encounter Details Date Type Department Care Team (Late st Contact Info) Description 07/21/2018 Telephone [facility] Reproductive Medicine & Infertility Center - [address] [address] Wayne Hardin RN Coordination Of [...] mg tablet Take 1 Tab by mouth daily for 5 days. Take cycle days 5-9 5 Tab 07/21/2018 07/26/2018 documented in this encounter Miscellaneous Notes * Telephone Encounter - Wayne Hardin RN - 07/21/2018 1401 EST Intrauterine Insemination Cycle number: 3 Plan:CC50/usf/hcg/IUI 1.) Call from patient- Date: 07/21/2018 Time: 14:02 Previous IUI: yes A.) Attended injection site technique class: yes B.) Pre-certfied: yes C.) Consent signed by patient & partner to use specimen: yes D.) Aware of current costs: yes E.) GC/ Chlamydia lab done: yes RXD: no Labs up to date: yes Consent up to date:yes *All labs and consents must be current to proceed* 2.) Last Menstrual Period: 07/20/2018 WNL?: yes 3.) OK to proceed? yes A.) Ovulation Induction Medication: clomid Dose: 50mg Cycle days: 5-9 [facility] B.) Human Chorionic Gonadotropin (HCG) 10,000 unit subcutaneous injection Pharmacy: [facility] Refills: 1 remaining D.) USF scheduled- Cycle Day: 11 Date: 07/30 Time: 0840 WAYNE HARDIN RN 07/21/2018 14:02 documented in this encounter Plan of Treatment Not on file documented as of this encounter Visit Diagnoses Not on filedocumented in this encounter Discontinued Medications Medication Sig Discontinue Reason Start Date End Da te clomiPHENE (CLOMID) 50 mg tablet Take 1 Tab by mouth daily. Take cycle days 5-9 Duplicate Therapy 06/23/2018 07/21/2018 documented as of this encounter Care Teams Professor Of Nursing Relationship Specialty Start Date End Date [facility] Internal Medicine, Ariel [address] [place] [address] PCP - General 11/03/15 10/01/23 documented as of this encounter
--- OUTSIDE RECORDS SUMMARY | 2024-09-16 01:39 | XMS_ITS | Encounter Summary ---
Author Organization [facility] Address [address] [place] [address] Care Team Providers Care Telecommunications Engineer Name Role Phone [facility] Internal Medicine, Primary Care Provi darrel Reason for Visit * Reason Comments Procedure IUI #3 Encounter Details Date Type Department Care Team (Late st Contact Info) Description 08/04/2018 8:30 EST Nurse Only [facility] Reproductive Medicine & Infertility Center [address] [id number] Meliza Sena MD [address] [place] [address], [facility] [address] [place] [address] Jane Garza MD Encounter for artificial insemination (Primary Dx) Discharge [...] Female infertility, unspecified-N97.9[ICD-10-CM] documented in this encounter Discharge Disposition Disposition Code Departure Means Destination Auto Discharge documented in this encounter Procedure Notes * Micah Phillip MD - 08/04/2018 0830 ESTProcedure(s): ND ARTIFICIAL INSEMINATION INTRA-UTERINE Pre-Procedure Diagnose(s): Encounter for artificial insemination Post-Procedure Diagnose(s): Encounter for artificial insemination Images from the original note were not included. INTRAUTERINE INSEMINATION PROCEDURE NOTE Patient: Reanna Espinoza (1985) Date: 08/04/2018 Insemination #: 3 Protocol: CC50/USF/HCG/IUI Patient and partner, Tremaine Espinoza, here today for intrauterine insemination. Today is CD16. Consent signed by patient, IUI sample identified [...] during insemination. Anticipated date of test is 08/18/18. Patient was educated prior to leaving office [...] Reproductive Endocrinology & Infertility [facility] 08/04/2018 / 9:41 documented in this encounter Plan of Treatment Not on file documented as of this encounter Procedures Procedure Name Priority Date/Time Associated Diagnosis Comments POCT SPERM WASHING ARTIFICIAL INSEMINATION Routine 08/04/2018 8:42 EST Encounter for artificial insemination documented in this encounter Results * POCT SPERM WASHING ARTIFICIAL INSEMINATION (08/04/2018 8:42 EST) Pathologist [facility] Media Lot #, POC [id number]; [id number] POINT OF CARE [facility] Expiration, POC 07/2019; 01/2019 POINT OF CARE [facility] Pre-Wash Volume, POC 2.0 >= 2 ml POINT OF CARE [facility] Pre-Wash Count, POC 55 >=20 million/ml POINT OF CARE [facility] Pre-Wash Motility, POC 71 >= 50% POINT OF CARE [facility] Post-Wash, POC 0.5 ml POINT OF CARE [facility] Post-Wash Count, POC 110 million/ml POINT OF CARE [facility] Post-Wash Motility, POC 85 % POINT OF CARE [facility] Total Motile, POC 46.5 >= 6 million POINT OF CARE [facility] Timing Method, POC POINT OF CARE [facility] Body fluid specimen (specimen) 08/04/2018 8:42 EST us Micah Phillip MD POINT OF CARE TEST ORDERAB LES Final Result POINT OF CARE [facility] documented in this encounter Visit Diagnoses Diagnosis Encounter for artificial insemination- Primary Artificial insemination documented in this encounter Care Teams Telecommunications Engineer Relationship Specialty Start Date End Date [facility] Internal Medicine, [place] [address] [place] [address] PCP - General 11/03/15 10/01/23 documented as of this encounter
--- OUTSIDE RECORDS SUMMARY | 2024-09-16 01:39 | XMS_ITS | Encounter Summary ---
Author Organization [facility] Address [address] [place] [address] Care Team Providers Care Manager Office Name Role Phone Internal Medicine, Primary Care Provi darrel Encounter Details Date Type Department Care Team (Late st Contact Info) Description 08/27/2018 Results Only Imaging [facility] - [address] [id number] Micah Phillip MD [address] [place] [phone] Social History Tobacco Use Types Packs/Day Years [...] Procedure Name Priority Date/Time Associated Diagnosis Comments SEAPORT PLANNING MANAGER US FOLLICULAR 08/27/2018 8:21 EST documented in this encounter Results * SEAPORT PLANNING MANAGER US FOLLICULAR (08/27/2018 8:21 EST) Anatomical Region Laterality Modality Other 08/27/2018 8:21 EST 09/02/2018 15:22 EST Narrative 09/02/2018 15:22 EST Indication Ovulation induction CD11 ltz 2.5/USF/HCG/IUI Cycle #4 (last 3 cycles were on Clomid). Uterus ======= Uterus: ?Visualized Uterus position: ?? Anteverted Myometrium: ?Fibroid, intramural anterior Endometrial thickness, total ?? 7.0 mm Fibroids: ??Fibroids identified Findings: ??Anterior. Intramural Polyps: ?Polyps identified Uterus other findings: Stable fibroid Right Ovary Rt ovary: ??Stimulated w/ multiple follicles consistent w/ hormonal therapy Rt ovarian follicle(s): ?Follicles identified D1 14.9 mm D2 11.0 mm D3 13.9 mm Mean ?? 13.2 mm Vol ?1.183 cm cubed Left Ovary Lt ovary: ??Stimulated w/ multiple follicles consistent w/ hormonal therapy Lt ovarian follicle(s): ?Follicles identified D1 17.3 mm D2 11.7 mm D3 15.0 mm Mean ?? 14.7 mm Vol ?1.588 cm cubed D1 16.2 mm D2 9.5 mm D3 14.5 mm Mean ?? 13.4 mm Vol ?1.162 cm cubed Cul [place] Sac Appears normal. No free fluid visualized. Impression Limited transvaginal follicular ultrasound-[id number] 1. Trilaminar endometrium measuring 7 mm, thicker than when on Clomid 2. ROV with a maturing follicle measuring 13 mm 3. LINDA with two maturing follicles measuring 15 mm and 13 mm 4. No free fluid in the cul de sac. Follow-up HCG Tuesday 08/29 for IUI Thursday 08/31 Risks of multiple gestation discussed and the patient desires to proceed with IUI this cycle. Comment ========= Prior ultrasounds reviewed and compared to today's ultrasound. Ultrasound findings discussed w/patient. DATE OF SERVICE: 08/27/2018 Procedure Note Meliza Sena MD - 09/02/2018 Indication Ovulation induction CD11 ltz 2.5/USF/HCG/IUI Cycle #4 (last 3 cycles were on Clomid). Uterus ======= Uterus: Visualized Uterus position: Anteverted Myometrium: Fibroid, intramural anterior Endometrial thickness, total 7.0 mm Fibroids: Fibroids identified Findings: Anterior. Intramural Polyps: Polyps identified Uterus other findings: Stable fibroid Right Ovary Rt ovary: Stimulated w/ multiple follicles consistent w/ hormonal therapy Rt ovarian follicle(s): Follicles identified D1 14.9 mm D2 11.0 mm D3 13.9 mm Mean 13.2 mm Vol 1.183 cm cubed Left Ovary Lt ovary: Stimulated w/ multiple follicles consistent w/ hormonal therapy Lt ovarian follicle(s): Follicles identified D1 17.3 mm D2 11.7 mm D3 15.0 mm Mean 14.7 mm Vol 1.588 cm cubed D1 16.2 mm D2 9.5 mm D3 14.5 mm Mean 13.4 mm Vol 1.162 cm cubed [place] Appears normal. No free fluid visualized. Impression Limited transvaginal follicular ultrasound-[id number] 1. Trilaminar endometrium measuring 7 mm, thicker than when on Clomid 2. ROV with a maturing follicle measuring 13 mm 3. LINDA with two maturing follicles measuring 15 mm and 13 mm 4. No free fluid in the cul de sac. Follow-up HCG Tuesday 08/29 for IUI Thursday 08/31 Risks of multiple gestation discussed and the patient desires to proceed with IUI this cycle. Comment ========= Prior ultrasounds reviewed and compared to today's ultrasound. Ultrasound findings discussed w/patient. DATE OF SERVICE: 08/27/2018 us Micah Phillip MD IMG US SEAPORT PLANNING MANAGER ORDERABLES Leticia l Result documented in this encounter Visit Diagnoses Not on filedocumented in this encounter Care Teams Manager Office Relationship Specialty Start Date End Date [facility] Internal Medicine, [address] [place] [address] PCP - General 11/03/15 10/01/23 documented as of this encounter
--- OUTSIDE RECORDS SUMMARY | 2024-09-16 01:39 | XMS_ITS | Encounter Summary ---
Author Organization [facility] Address [address] [place] [address] Care Team Providers Care Fare Collector Name Role Phone [facility] Internal Medicine, Primary Care Provi darrel Reason for Visit * Reason Comments Infertility Encounter Details Date Type Department Care Team (Late st Contact Info) Description 07/06/2018 8:30 EST Nurse Only [facility] Medicine [facility] Inf[facility] [address] [place] [address] Unknown, Provider, Gary Graves MD [address] [place] [phone] Jane Doc Infertility, female (Primary Dx) Discharge Disposition: Auto Discharge Social [...] Procedure Notes * Jeremias Maldonado MD - 07/06/2018 0830 ESTProcedure(s): KS ARTIFICIAL INSEMINATION INTRA-UTERINE Pre-Procedure Diagnose(s): Infertility, female Post-Procedure Diagnose(s): Infertility, female Patient and Tremaine here today for insemination # 2. Plan this cycle CC50mg/USF/hCG/IUI. Today is CD#15. Consent signed by patient, IUI sample identified [...] attempt was made to pass catheter and No bleeding occurred during insemination. Anticipated date of test is 07/22/18. Patient was educated prior to leaving office [...] of plan. I was supervised by Dr. Vega, who was present and immediately available in the office suite. Jeremias Maldonado MD 07/06/2018 9:59 documented in this encounter Plan of Treatment Not on file documented as of this encounter Procedures Procedure Name Priority Date/Time Associated Diagnosis Comments POCT SPERM WASHING ARTIFICIAL INSEMINATION Routine 07/06/2018 9:00 EST Infertility, female documented in this encounter Results * POCT SPERM WASHING ARTIFICIAL INSEMINATION (07/06/2018 9:00 EST) Media Lot #, POC [id number]; [id number] POINT OF CARE [facility] Expiration, POC 07/2019; 01/2019 POINT [facility] CARE [facility] Pre-Wash Volume, POC 3.1 >= 2 ml POINT OF CARE [facility] Pre-Wash Count, POC 86 >=20 million/ml POINT [facility] CARE [facility] Pre-Wash Motility, POC 63 >= 50% POINT [facility] CARE [facility] Post-Wash, POC 0.5 ml POINT OF CARE [facility] Post-Wash Count, POC 118 million/ml POINT OF CARE [facility] Post-Wash Motility, POC 80 % POINT OF CARE [facility] Total Motile, POC 47 >= 6 million [facility]INT [facility] Timing Method, POC [facility]INT [facility] C[facility] Body fluid specimen (specimen) 07/06/2018 9:00 EST us Gary Vega MD POINT OF CARE TEST ORDERABLE S Final Result POINT OF CARE [facility] documented in this encounter Visit Diagnoses Diagnosis Infertility, female- Primary Female infertility of unspecified origin documented in this encounter Care Teams Fare Collector Relationship Specialty Start Date End Date [facility] Internal Medicine, [place] [address] [place] [address] PCP - General 11/03/15 10/01/23 documented as of this encounter
--- OUTSIDE RECORDS SUMMARY | 2024-09-16 01:39 | XMS_ITS | Encounter Summary ---
Author Organization [facility] Address [address] [place] [address] Care Team Providers Care Vehicle Body Maker Name Role Phone Internal Medicine, Primary Care Provi darrel Reason for Visit * Reason Comments Follow-up discuss next steps Encounter Details Date Type Department Care Team (Late st Contact Info) Description 05/22/2018 8:30 EDT Office Visit [facility] Reproductive Medicine & Infertility Center - [address] [address] Maryan Jameson MD [address] [place] [address], [facility] [address] [place] [address] Infertility, female, primary (Primary Dx) [...] Sign Reading Time Taken Comments Blood Pressure 120/86 05/22/2018 0845 EDT Pulse - - Temperature - - Respiratory Rate - - Oxygen Saturation - - Inhaled Oxygen Concentration - - Weight 56.7 kg (125 lb) 05/22/2018 0845 EDT Height 160 cm (5' 3) 05/22/2018 0845 EDT Body Mass Index 22.14 05/22/2018 0845 EDT documented in this encounter Functional Status [...] 05/01/2018 13:35 EDT documented in this encounter Patient Instructions * Patient Instructions* Maryan Thompson MD - 05/22/2018 8:30 EDT Images from the original note were not included. [facility] [place]Level 4 [facility] What is ???IUI?? ? Intrauterine insemination is a two step process. First, the sperm must be from the seminal fluid, which contains many potentially irritating substances. The semen is collected via masturbation into a sterile specimen cup. In the lab it is combined with sterile media, and then spun in a centrifuge so that all the sperm accumulate at the bottom of the tube. The liquid is discarded and thesperm re-suspended in a small volume of media. Second, the sperm are drawn up into a small tube which is passed through the cervix into the uterus. The sperm are then deposited in the uterine cavity,and thus have a head start on their journey toward the egg. Indications Male factor infertility, endometriosis, cervical factor, and unexplained infertility are appropriate for IUI. Frequently treatment combines the use of ???fertility drugs?? such as Clomiphene Citrateor Letrazole with IUI. Timing The purpose of proper timing of IUI is to coordinate the meeting of the egg and sperm in the right place at the right time. Our goal is to inseminate as close as possible to the event of ovulation. Timing is crucial to the success of IUI. In our clinic, IUI is used in conjunction with several different therapies, each of which has a different timing protocol. Make sure that you follow instructions for timing that match your therapy. LH indicator kit. LH kits predict impending ovulation by detecting a rise in luteinizing hormone (LH) in the urine. Acolor change in the test kit indicates that you are ???surging?? and will ovulate in 24 hours. If you are using LH kits, call the office before noon on the day that you see a color change. You will be scheduled for an insemination the following day. Ultrasound LH timing and ultrasound are sometimes used together to determine when to inseminate frozen sperm. The ovary is scanned to see if the egg has been released from the follicle. If the follicle appears to be collapsing, IUI will be done immediately. If the follicle is still present, IUI will be postponed until the afternoon. Ultrasound monitoring is critical to timing when therapy involves stimulation of the ovaries with Clomiphene. Clomiphene citrate/hCG Our clinic frequently uses Clomiphene (brand names Clomid, Serophene) to achieve mild ovarian stimulation and fine-tune ovulation. It is a prescription drug whose order must be called into your pharmacy every month you plan to use it. One tablet is usually taken for five days during the first part of the cycle. Your doctor will prescribe the exact regimen. On cycle day 11 or 12 an ultrasound is done to assess follicular development. When the follicle is at optimum size, an injection of human chorionic gonadotropin (hCG) is administered. hCG is a naturally occurring hormone which will induce ovulation 40 hours from the time of the injection. You return to the clinic approximately 40 hours, or a day and a half, after the hCG injection for insemination. If you live within one hour of the clinic you can collect the specimen at home. Just as for semen analysis, the semen should be collected into a sterile container by masturbation only. Use no lubrication when producing a specimen for IUI.If you live further away, plan to collect at the clinic. Adverse effects Any discomfort is usually minimal, comparable to getting a Pap smear. Occasionally patients experience spotting and mild cramping which will subside soon after the procedure is finished. It is extremely rare (less than 1% chance per cycle) for IUI to cause a pelvic infection. Should you have persistent cramping, abnormal discharge, lower abdominal tenderness with our without fever after an insemination, call the clinic immediately. Post-insemination instructions: 1. Unless your nurse or doctor instructs you otherwise, there is no need to restrict activities or refrain from intercourse. 2. If your period is 2-3 days late, please call the phone nurse to arrange for follow-up. 3. If you get your period, please call the nurse to tell her the date it started. Letting us know the outcome of your cycle helps us give you better care. Scheduling 1. All scheduling is done through the [facility] nurse: [phone]. 2. Preparation of a fresh specimen requires about 20 minutes. If you collect your specimen at the clinic, add 10-20 minutes to allow the semen to liquefy. It takes 30 minutes to prepare most frozen specimens. 3. If you plan to collect on site, tell the nurse when you make the appointment. Arrive at the clinic 30 minutes prior to your appointment so that you will have plenty of time to collect the specimen. 4. If you are using an LH kit, call the day of your surge. You must call the clinic before noon on the day of your LH surge. You will get an appointment the following day. 5. If you are taking Clomid, make an appointment for your day 11 or 12 ultrasound. Your hCG injection and insemination will be scheduled at this visit. If you have further questions about this procedure, do not hesitate to contact one of the nurses orthe physician who has prescribed this therapy. [facility] Reproductive Medicine Women???[facility]Level 4 [facility] Letrozole Letrozole is an aromatase inhibitor (class of medication) and was introduced as an ovulation induction medication almost a decade. This medication is primarily is utilized in patients with irregular menses and in those with polycystic ovarian syndrome (PCOS), but may be utilized in women who experience side effects of clomid, who have not conceived on clomid, or for whom clomid is contraindicated. This medication can also used for ovarian stimulation at the time of IVF and egg freezing. The use of letrozole for ovulation induction is off-label, meaning the FDA has not approved the use of letrozole for ovulation induction. However, letrozole use for the treatment of infertility hasbeen widely studies. Most recently, the National Institutes of Health evaluated the effect of letrozole in patients with ovulatory infertility or PCOS. What is the success rate? Success rates differ by female age and fertility diagnosis. In general, successful ovulation occursin 60% of cycles, and the number of cycles that result in a live for women with PCOS who are < 35 years of age is 15- 17% per cycle. What is the risk of twins or greater? The risk of twins with letrozole is estimated to be approximately 3-5%, which appears to be lower than the risk of twins with clomiphene cirtate (5-8%), but is still higher than the risk of twins in a spontaneous . Although triplets and higher order multiple pregnancies occur the risk is lower ( ~1% or less). What are the side effects? The most common side effects of short-term letrozole use include fatigue or dizziness, which occur in approximately 10-20% of patients. Is the risk of defects increased? Early studies with letrozole raised the concern that use of letrozole may be associated with ain increased risk of congenital abnormalities, although subsequent studies to date have not reproduced these findings. However, all patients should insure they are not before taking this medication and performa home test and assure it is negative before taking this medication. If you are uncertainof the result of the home test, or prefer, you may ask to have a blood (serum) test performed. How is letrozole taken? This medication is typically taken orally for 5 days starting on the 3rd to 5th day of your menstrual cycle. The typical dose is 2.5 -5.0 mg daily. [facility] Reproductive Medicine [facility] - Level 4 [phone] The Clomiphene Citrate / Letrozole Cycle: TIMED INTERCOURSE INSTRUCTIONS PERIOD 1. Period: First day of full flow or heavy flow vaginal bleeding(more than spotting) is cycle day #1= . 2. Call the clinic (Saturday -Saturday 8:30 - 4:00 pm) to notify the nurses and to get medication scripted. 3. Start Clomid (Clomiphene Citrate) or Letrozole(Femara) mg (take cycle days___-___) a. Clomid: Please test a urine test prior to starting Clomid. If the test is negative it is ok to proceed. b. Letrozole: You must have an hCG and progesterone blood level drawn prior to starting this medication to ensure you are not . If hCG is negative and progesterone is less than 3 you may proceed. Best to call the office on cycle day 1-2 to ensure testing is completed prior to your Letrozolestart date. 4. Timed intercourse: [place] every other day starting cycle day 10-12 for 1-2 weeks. For your first cycle only: progesterone blood drawn on cycle day 21 to confirm ovulation. A value greater than 3 indicates that you have ovulated. 5. OPK (Ovulation predicator kit) timed: start testing using OPKs cycle day 10- 12, test every day until you get a positive result. On the day of the positive result, have intercourse and continue every other day for 1 week. If no positive OPK result by cycle day #21, please call the nurse triage line to have a progesterone blood level drawn to confirm if ovulation has occurred. OPKs are not effective for everyone. 6. You will either: Get a period by cycle day 35-40 or you will not a get a period. If you start your period please call the nurses to follow up. If you do not start a period, please proceed with an at home urine test and call the nurses to report your result. 7. Keep the nurses informed ([phone]) when you are repeating the process. Please call to notify the nurses that you have started your period and that you are planning or not planning to start another cycle. 8. Repeat this process ____ times. documented in this encounter Progress Notes * Maryan Thompson MD - 05/22/2018 0830 EDT Reproductive Medicine Follow Up Note Chief Complaint: Primary infertility History of Present Illness: The patient is a 32 year old female who presents with her for follow up. HYCOSY: small intramural anterior wall myoma, right ube patent, left tube? Occlusion, small 3 mm x 3 mm intracavitary lesion Normal SA [facility] 6.0 Negative screening Objective: BP 120/86 Ht 160 cm (63) Wt 56.7 kg (125 lb) LMP 04/30/2018 (Exact Date) BMI 22.14 kg/m2 Assessment: Patient Active Problem List Diagnosis ??? Infertility, female, primary Plan: CC 50 mg CD 5-9 US hcg timed IUI for 3-4 cycles I had a 35 minute [id number] conversation and discussion with the patient and her spouse, all 35 minutes spent in direct consultation and discussion with regards to their laboratory testing, diagnoses, and options for care. I reviewed the options to include continued attempts of on their own, utilization of oralovulation induction agents such as Clomid or letrozole with ovulation predictor kit timed intercourse, versus a monitored Clomid or letrozole ovulation predictor kit or ultrasound timed insemination,versus proceeding directly to IVF ART. I reviewed the risks of oral ovulation induction agents to include, but not be limited to, symptomssuch as hot flashes, visual scotomata, increasing pelvic pressure, ovarian cyst, increased risk formultiple gestations to include twins, and a low likelihood but possibility of triplets or more. We reviewed the risk of low likelihood but possibility of thinning of the endometrium and ovarian hyperstimulation syndrome. Reviewed mood lability and injection site discomfort as well as the potential cost of the medications. I recommended no more than 3-4 cycles before they reconsider their options for care. Results for DIMAS CUETO ( ) as of 05/22/2018 08:42 Ref. Range 05/01/2018 14:38 ANTIMULLERIAN HORMONE ([facility]) REPROSOURCE Unknown Rpt TSH Latest Ref Range: 0.47 - 4.68 uIU/ml 1.07 25OH Vitamin D Tot Latest Ref Range: 30 - 100 ng/ml 46.5 CYSTIC FIBROSIS MUTATION ANALYSIS, 106 PANEL Unknown Rpt SPINAL MUSCULAR ATROPHY CARRIER SCREENING BY DEL/DUP ANALYSIS Unknown Rpt Rubells IgG Ab Unknown Positive Varicella IgG Ab Unknown Positive * Johanne Khan RN - 05/22/2018 0830 EDT Dimas and partner Tremaine present to clinic to learn how to administer Ovidrel injection. ?? Reviewed how to prepare syringe, how to prepare injection site, and how to self administer the injection. ?? Prepare syringe by tapping air to the top and pressing plunger until one drop of medication is visible on the tip of the needle. ?? Prepare injection site by cleaning for 15 seconds with an alcohol swab and allowing to air dry. ?? Pinch up skin of abdomen two inches away from umbilicus, hold syringe like a pencil, insert entire needle into pinched skin, move thumb up to the plunger and press until all medication has been ejected. Remove needle and hold pressure on injection site. Pt verbalized understanding and returned demonstration. ?? Pt is aware of available video for review on [employer] website. She is also aware of on-call MD phone number if she needs assistance after office hours. She will call with CD#1 to start her IUI cycle. documented in this encounter Plan of Treatment Not on file documented as of this encounter Visit Diagnoses Diagnosis Infertility, female, primary- Primary Female infertility of unspecified origin documented in this encounter Care Teams Vehicle Body Maker Relationship Specialty Start Date End Date [facility] Internal Medicine, [place] [address] [place] [address] PCP - General 11/03/15 10/01/23 documented as of this encounter
--- OUTSIDE RECORDS SUMMARY | 2024-09-16 01:39 | XMS_ITS | Encounter Summary ---
Author Organization [facility] Address [address] [place] [address] Care Team Providers Care [employer] Hand Name Role Phone Internal Medicine, Primary Care Provi darrel Encounter Details Date Type Department Care Team (Late st Contact Info) Description 07/30/2018 Results Only Imaging [facility] - [address] [phone] Maryan Jameson MD [address] [facility], [address] [place] [address] Social History Tobacco Use Types [...] Procedure Name Priority Date/Time Associated Diagnosis Comments LOCAL ANNOUNCER US FOLLICULAR 07/30/2018 8:50 EST documented in this encounter Results * LOCAL ANNOUNCER US FOLLICULAR (07/30/2018 8:50 EST) Anatomical Region Laterality Modality Other 07/30/2018 8:50 EST 08/02/2018 12:21 EST Narrative 08/02/2018 12:21 EST Indication 33yo with unexplained infertility cycle number 3, CC50/usf/hcg/IUI CD11. Uterus ======= Uterus: ?Appears normal Uterus position: ?? Anteverted Endometrial thickness, total ?? 4.5 mm Right Ovary Rt ovary: ??Normal with maturing follicle Rt ovarian follicle(s): ?Follicles identified D1 13.0 mm D2 16.3 mm D3 13.2 mm Mean ?? 14.2 mm Vol ?1.460 cm cubed D1 11.5 mm D2 10.7 mm D3 9.8 mm Mean ?? 10.7 mm Vol ?0.635 cm cubed Left Ovary Lt ovary: ??Normal with maturing follicle Lt ovarian follicle(s): ?Follicles identified D1 14.2 mm D2 11.7 mm D3 11.6 mm Mean ?? 12.5 mm Vol ?1.005 cm cubed D1 12.9 mm D2 10.6 mm D3 11.4 mm Mean ?? 11.6 mm Vol ?0.819 cm cubed [place] Appears normal. No free fluid visualized. Impression Anteverted uterus with trilaminar endometrium. Right ovary with follicular development as measured above. Left ovary with early follicular development. Follow-up Trigger Saturday for IUI Saturday. Will perform OPK /Sat. Comment ========= Ultrasound findings discussed w/patient. Discuss possibility of repeat scan Saturday vs. planning trigger Saturday and patient prefers to schedule trigger as she pays for every ultrasound and would be unable to come Saturday due to work schedule. DATE OF SERVICE: 07/30/2018 Procedure Note Meliza Sena MD - 08/02/2018 Indication 33yo with unexplained infertility cycle number 3, CC50/usf/hcg/IUI CD11. Uterus ======= Uterus: Appears normal Uterus position: Anteverted Endometrial thickness, total 4.5 mm Right Ovary Rt ovary: Normal with maturing follicle Rt ovarian follicle(s): Follicles identified D1 13.0 mm D2 16.3 mm D3 13.2 mm Mean 14.2 mm Vol 1.460 cm cubed D1 11.5 mm D2 10.7 mm D3 9.8 mm Mean 10.7 mm Vol 0.635 cm cubed Left Ovary Lt ovary: Normal with maturing follicle Lt ovarian follicle(s): Follicles identified D1 14.2 mm D2 11.7 mm D3 11.6 mm Mean 12.5 mm Vol 1.005 cm cubed D1 12.9 mm D2 10.6 mm D3 11.4 mm Mean 11.6 mm Vol 0.819 cm cubed [place] Appears normal. No free fluid visualized. Impression Anteverted uterus with trilaminar endometrium. Right ovary with follicular development as measured above. Left ovary with early follicular development. Follow-up Trigger Saturday for IUI Saturday. Will perform OPK /Sat. Comment ========= Ultrasound findings discussed w/patient. Discuss possibility of repeat scan Saturday vs. planning trigger Saturday and patient prefers to schedule trigger as she pays for every ultrasound and would be unable to come Saturday due to work schedule. DATE OF SERVICE: 07/30/2018 us Maryan Torres MD IMG US LOCAL ANNOUNCER NIKOLAY VALENCIA Final Result documented in this encounter Visit Diagnoses Not on filedocumented in this encounter Care Teams [employer] Relationship Specialty Start Date End Date [facility] [address] [place] [address] PCP - General 11/03/15 10/01/23 documented as of this encounter
[2024-09-16 10:47] LABS: Abs Immature Grans 0.05 10^3/uL (0.0-0.06); Absolute Basophil Count 0.08 10^3/uL (0.0-0.2); Absolute Eosinophil Count 0.09 10^3/uL (0.0-0.7); Basophils % 0.7 %; Eosinophils % 0.8 %; HCT 40.5 % (36.0-46.0); HGB 13.4 g/dL (11.2-15.7); Immature Grans % 0.4 %; Lymphocytes % 18.8 %; MCH 29.3 pg (27.0-33.0); MCHC 33.1 % (32.0-36.0); MCV 88 fL (80-95); MPV 9.6 fL (8.0-11.0); Monocytes % 6.1 %; Neutrophils % 73.2 %; Platelet Count 227 10^3/uL (130-400); RBC 4.58 10^6/uL (3.93-5.22); RDW-SD 39.1 fL; WBC 11.73 10^3/uL (4.4-10.8)
[2024-09-16 10:51] LABS: Absolute Lymphocyte Count 2.21 10^3/uL (1.2-3.4); Absolute Monocyte Count 0.72 10^3/uL (0.1-0.8); Absolute Neutrophil Count 8.59 10^3/uL (1.2-6.7)
[2024-09-16 11:20] LABS: TSH (W/Ref FT4) 0.21 uIU/mL (0.36-3.74)
[2024-09-16 11:39] LABS: FREE T4 1.08 ng/dL (0.76-1.46)
[2024-09-16 21:27] LABS: Hepatitis B Surface Ag Negative (Negative)
[2024-09-16 21:57] LABS: HIV-1/2 Ag & Ab Screen Negative (Negative)
[2024-09-16 22:02] LABS: Hepatitis C Ab w Rflx HCV PCR Negative (Negative)
[2024-09-17 10:48] LABS: Varicella IgG Antibody Positive (See Note)
[2024-09-18 15:20] LABS: Syphilis IgG w/Reflex Nonreactive (Nonreactive)
== END 2024-09-16 01:03 | disposition home or self-care (01) ==
LOC: LBO 01:02
PROVIDERS: PCP Family Medicine; Visit Provider Advanced Practice Midwife
DX: Z34.91 Encounter for supervision of normal pregnancy, unspecified, first trimester (principal)
CPT/HCPCS: 36415; 86787; 86803; 86850; 86900; 86901; 87340; 87389; 84439; 84443; 85025; 86780

== ENCOUNTER 2024-09-16 10:29 | Outpatient (REF) | payer BC, SELFPAY ==
[2024-09-17 13:31] LABS: Chlamydia Result Negative (Negative); GC Result Negative (Negative)
== END 2024-09-16 10:30 | disposition home or self-care (01) ==
LOC: LBN 10:29
PROVIDERS: PCP Family Medicine; Visit Provider Advanced Practice Midwife
DX: Z34.91 Encounter for supervision of normal pregnancy, unspecified, first trimester (principal)
CPT/HCPCS: 87491; 87591; 87086

== ENCOUNTER 2025-01-07 03:10 | Outpatient (CLI) | payer BC, SELFPAY ==
[2025-01-07 10:32] LABS: HCT 32.4 % (36.0-46.0); HGB 10.9 g/dL (11.2-15.7); MCH 30.6 pg (27.0-33.0); MCHC 33.6 % (32.0-36.0); MCV 91 fL (80-95); MPV 9.6 fL (8.0-11.0); Platelet Count 212 10^3/uL (130-400); RBC 3.56 10^6/uL (3.93-5.22); RDW 12.9 % (11.7-14.6); RDW-SD 42.7 fL; WBC 12.01 10^3/uL (4.4-10.8)
[2025-01-07 11:21] LABS: Glucose,1 Hr (Glucola) 77 mg/dL (80-140)
== END 2025-01-07 03:11 | disposition home or self-care (01) ==
LOC: LBO 03:10
PROVIDERS: PCP Family Medicine; Visit Provider Obstetrics & Gynecology
DX: Z34.93 Encounter for supervision of normal pregnancy, unspecified, third trimester (principal)
CPT/HCPCS: 36415; 82950; 85027